=== PATIENT | female | born 1955 | race Caucasian/White ===

== ENCOUNTER 2020-03-16 18:07 | Emergency (ER) | payer BC, SELFPAY ==
[2020-03-16 18:42] VITALS: BP 97/65; PULSE 65; RESP 16; TEMP 36.2; O2SAT 97; BMI 36.8
[2020-03-16 20:00] VITALS: BP 97/65; PULSE 65; RESP 16; TEMP 36.2; O2SAT 97
[2020-03-16 20:34] LABS: MANUAL DIFF FLAG NO
[2020-03-16 20:39] LABS: Basophils Absolute Auto 0.1 X10*3/uL (0.0-0.2); Basophils Percent Auto 0.8 % (0-2); Eosinophils Absolute Auto 0.3 X10*3/uL (0.0-0.4); Eosinophils Percent Auto 2.8 % (0-4); Hematocrit 46.2 % (37-47); Hemoglobin 15.1 g/dl (12.0-16.0); Imm Gran Abs Auto 0.04 X10*3/uL (0.00-0.03); Imm Gran Pct Auto 0.4 % (0.0-0.4); Lymphocytes Absolute Auto 2.1 X10*3/uL (1.2-4.9); Lymphocytes Percent Auto 20.3 % (20-40); Mean Corpuscular HGB Conc 32.7 g/dl (31.0-35.0); Mean Corpuscular Volume 82.6 fL (80-98); Mean Platelet Volume 8.8 fL (9.4-12.3); Monocytes Absolute Auto 0.9 X10*3/uL (0.1-1.2); Monocytes Percent Auto 8.6 % (2-11); Neutrophils Absolute Auto 6.8 X10*3/uL (2.0-8.3); Neutrophils Percent Auto 67.1 % (45-73); Platelet Count 246 X10*3/uL (160-400); Red Blood Count 5.59 X10*6/uL (4.20-5.50); Red Cell Distribution Width 13.9 % (11.0-16.0); White Blood Count 10.1 X10*3/uL (4.8-10.8)
[2020-03-16 21:04] LABS: Alanine Aminotransferase 38 U/L (0-31); Albumin Level 4.2 g/dL (3.5-5.0); Alkaline Phosphatase 80 U/L (39-117); Anion Gap 15 (12-20); Aspartate Amino Transferase 26 U/L (5-31); Bilirubin Total 0.9 mg/dL (0.0-1.0); Blood Urea Nitrogen 49 mg/dL (9-16); Calcium 9.5 mg/dL (8.4-10.2); Carbon Dioxide 24 mmol/L (22-29); Chloride 107 mmol/L (96-108); Creatinine Clr Calc Pharmacy 32.4; Estimated Glomerular Filt Rate 24; Glucose Random 102 mg/dL (60-115); Potassium 4.1 mmol/l (3.3-5.1); Sodium 142 mmol/L (135-145); Total Protein 6.8 g/dL (6.5-8.0)
--- NOTE | 2020-03-16 21:23 | ED_ITS ---
HPI - Nausea/Vomiting/Diarrhea General Chief complaint: General Medical Stated complaint: dehydration Time Seen by Provider: 03/16/20 21:22 Source: patient History of Present Illness HPI Narrative: This is a 64-year-old female with history of hypertension who presents with 2 days of nonbloody diarrhea that she states started after consuming a turkey sandwich. She has had some mild nausea however states that she has had no further diarrhea today and that she has been able to tolerate liquids. Otherwise, patient denies any fevers, chills, urinary pain /burning / frequency, shortness of breath, chest pain / palpitations. Of note, patient states that she lost her dog on Sunday which she feels has factor in to her diarrhea. Related Data Home Medications Medication Instructions Recorded Confirmed amlodipine-olmesartan 1 tab PO DAILY 03/16/20 03/16/20 hydrochlorothiazide 1 tab PO DAILY 03/16/20 03/16/20 lorazepam 1 tab PO DAILY PRN 03/16/20 03/16/20 metoprolol tartrate 1 tab PO BID 03/16/20 03/16/20 ondansetron 1 tab PO BID PRN 03/16/20 03/16/20 tramadol 1 tab PO Q12H PRN 03/16/20 03/16/20 triamcinolone acetonide appl TOPICAL DAILY 03/16/20 Allergies Allergy/AdvReac Type Severity Reaction Status Date / Time Iodinated Contrast Media Allergy Severe SEIZURE Verified 03/16/20 23:31 [IV CONTRAST] vancomycin [VANCOMYCIN] Allergy Severe ITCHING, Verified 03/16/20 23:31 SOB doxycycline [DOXYCYCLINE] Allergy Intermediate DIFFICULTY Verified 03/16/20 23:31 SWALLOWING Penicillins [PENICILLINS] Allergy Intermediate RASH Verified 03/16/20 23:31 cephalexin [From KEFLEX] Allergy Unknown RASH Verified 03/16/20 23:31 penicillin V Allergy Unknown Rash Verified 03/16/20 23:31 Sulfa (Sulfonamide Allergy Unknown UNKNOWN Verified 03/16/20 23:31 Antibiotics) [SULFA (SULFONAMIDE ANTIBIOTICS)] ACEI Allergy Unknown cough Uncoded 03/16/20 23:31 Iodinated contrast - PO and Allergy Unknown dystonia, Uncoded 03/16/20 23:31 IV confusion Penicillin Allergy Unknown Rash Uncoded 03/16/20 23:31 Sulfonamides Allergy Unknown Rash Uncoded 03/16/20 23:31 Review of Systems Review of Systems: Pertinent positives and negatives as stated in HPI 10 point review of systems otherwise negative. [facility]LY [facility] Past Medical History Source: nursing notes reviewed Medical History HTN (hypertension) Meningioma Splenic artery aneurysm Social History Social History Alcohol intake: unknown Smoking Status: Unknown if ever smoked Use of substances other than those prescribed or required for medical reasons: Unknown Advance Directives: No Advance Directives Information Provided: Yes Physical Exam Vital Signs: Vital Signs: Last Vital Signs Temp 98.0 F 03/16/20 23:53 Pulse 68 03/17/20 00:46 Resp 18 03/17/20 00:46 BP 106/53 L 03/17/20 00:46 Pulse Ox 98 03/17/20 00:46 Body Mass Index 36.8 VITAL SIGNS: Reviewed. GENERAL: Well developed, well nourished, in no acute distress. HEAD: Normocephalic/atraumatic, EYES: PERRLA, EOMI intact without pain, no nystagmus/pallor/icterus noted EARS: Ext canals without abnormality, TMs non-bulging and non-erythematous NOSE: Nares patent bilateral OROPHARYNX: no oral lesions noted, posterior pharynx clear and non-erythematous without noted tonsillar enlargement/erythema/exudates NECK: Supple, no adenopathy LUNGS: Normal breath sounds. No adventitious sounds or accessory muscle use. SpO2<97> CARDIOVASCULAR: Regular rate and rhythm without noted murmurs, no JVD or lower extremity edema. ABDOMEN: Soft, non-tender, non-distended with bowel sounds. No rigidity. No guarding. No palpable masses or hernias noted MUSCULOSKELETAL: No tenderness, deformities, or effusions noted on gross inspection. EXTREMITIES: No cyanosis, clubbing or edema. SKIN: Inspection of the skin reveals no rashes, ulcerations, jaundice, pallor, or petechiae. NEUROLOGIC: Alert and oriented x 4. Strength and sensation to light touch were grossly intact x 4. Course Course Course Narrative: This is a 64-year-old female with history and clinical presentation most consistent with viral enteritis that appears to be resolving and patient likely has mild dehydration with noted new CONRAD. on review of all investigations there is no evidence of systemic infection, no anemia, platelets are within normal limits, but there is a noted CONRAD that is likely secondary to patient's reported NSAID use as well as compound by her recent dehydration. Patient will receive IV fluids as well as p.o. and will repeat BMP prior to discharge. Repeat basic metabolic panel shows an improvement of the creatinine level and although the BUN remains elevated patient can continue to hydrate orally and clinically is much improved and will follow-up with her primary care provider in the morning. MDM - Nausea/Vomiting/Diarrhea Lab Data Result diagrams: 03/16/20 20:28 03/17/20 00:42 Labs: Lab Results 03/16/20 03/16/20 03/16/20 Range/Units 20:28 20:28 20:28 WBC 10.1 (4.8-10.8) X10*3/uL RBC 5.59 H (4.20-5.50) X10*6/uL Hgb 15.1 (12.0-16.0) g/dl Hct 46.2 (37-47) % MCV 82.6 (80-98) fL MCH 27.0 (27.0-33.0) pg MCHC 32.7 (31.0-35.0) g/dl RDW 13.9 (11.0-16.0) % Plt Count 246 (160-400) X10*3/uL MPV 8.8 L (9.4-12.3) fL Immature Gran % (Auto) 0.4 (0.0-0.4) % Neut % (Auto) 67.1 (45-73) % Lymph % (Auto) 20.3 (20-40) % [place] % (Auto) 8.6 (2-11) % Eos % (Auto) 2.8 (0-4) % Baso % (Auto) 0.8 (0-2) % Lymph # (Auto) 2.1 (1.2-4.9) X10*3/uL [place] # (Auto) 0.9 (0.1-1.2) X10*3/uL Eos # (Auto) 0.3 (0.0-0.4) X10*3/uL Baso # (Auto) 0.1 (0.0-0.2) X10*3/uL Abs Immat Gran (auto) 0.04 H (0.00-0.03) X10*3/uL Absolute Neuts (auto) 6.8 (2.0-8.3) X10*3/uL Absolute Nucleated RBC 0.000 (0.0-0.012) X10*3/uL Nucleated RBC % (auto) 0.0 (0.0-0.2) /100WBC Hold Blue Top SEE NOTE Sodium 142 (135-145) mmol/L Potassium 4.1 (3.3-5.1) mmol/l Chloride 107 (96-108) mmol/L Carbon Dioxide 24 (22-29) mmol/L Anion Gap 15 (12-20) BUN 49 H (9-16) mg/dL Creatinine 2.10 H (0.5-1.4) mg/dL Estim Creat Clear Calc 32.4 Estimated GFR 24 Random Glucose 102 (60-115) mg/dL Calcium 9.5 (8.4-10.2) mg/dL Total Bilirubin 0.9 (0.0-1.0) mg/dL AST 26 (5-31) U/L ALT 38 H (0-31) U/L Alkaline Phosphatase 80 (39-117) U/L Total Protein 6.8 (6.5-8.0) g/dL Albumin 4.2 (3.5-5.0) g/dL 03/17/20 Range/Units 00:42 WBC (4.8-10.8) X10*3/uL RBC (4.20-5.50) X10*6/uL Hgb (12.0-16.0) g/dl Hct (37-47) % MCV (80-98) fL MCH (27.0-33.0) pg MCHC (31.0-35.0) g/dl RDW (11.0-16.0) % Plt Count (160-400) X10*3/uL MPV (9.4-12.3) fL Immature Gran % (Auto) (0.0-0.4) % Neut % (Auto) (45-73) % Lymph % (Auto) (20-40) % [place] % (Auto) (2-11) % Eos % (Auto) (0-4) % Baso % (Auto) (0-2) % Lymph # (Auto) (1.2-4.9) X10*3/uL [place] # (Auto) (0.1-1.2) X10*3/uL Eos # (Auto) (0.0-0.4) X10*3/uL Baso # (Auto) (0.0-0.2) X10*3/uL Abs Immat Gran (auto) (0.00-0.03) X10*3/uL Absolute Neuts (auto) (2.0-8.3) X10*3/uL Absolute Nucleated RBC (0.0-0.012) X10*3/uL Nucleated RBC % (auto) (0.0-0.2) /100WBC Hold Blue Top Sodium 143 (135-145) mmol/L Potassium 4.1 (3.3-5.1) mmol/l Chloride 112 H (96-108) mmol/L Carbon Dioxide 18 L (22-29) mmol/L Anion Gap 17 (12-20) BUN 49 H (9-16) mg/dL Creatinine 1.73 H (0.5-1.4) mg/dL Estim Creat Clear Calc 39.4 Estimated GFR 30 Random Glucose 98 (60-115) mg/dL Calcium 8.5 D (8.4-10.2) mg/dL Total Bilirubin (0.0-1.0) mg/dL AST (5-31) U/L ALT (0-31) U/L Alkaline Phosphatase (39-117) U/L Total Protein (6.5-8.0) g/dL Albumin (3.5-5.0) g/dL Discharge Plan Discharge Clinical Impression: Diarrhea, Dehydration Patient Disposition: Home, Self-Care Instructions: Dehydration (ED), Acute Diarrhea (ED) Prescriptions: No Action tramadol 50 mg tablet 1 tab PO Q12H PRN (Reason: Insomnia) RF: 0 triamcinolone acetonide 0.1 % cream topical DAILY RF: 0 lorazepam 0.5 mg tablet 1 tab PO DAILY PRN (Reason: Anxiety) RF: 0 metoprolol tartrate 50 mg tablet 1 tab PO BID RF: 0 hydrochlorothiazide 25 mg tablet 1 tab PO DAILY RF: 0 ondansetron 4 mg tablet,disintegrating 1 tab PO BID PRN (Reason: nausea/vomiting) RF: 0 amlodipine-olmesartan 10-40 mg tablet 1 tab PO DAILY RF: 0 Referrals: Benji Salcedo MD [Primary Care Provider] - 2 days ( Re-evaluation of CONRAD and diarrhea)
[2020-03-16 22:00] VITALS: BP 99/58; PULSE 61; RESP 61; O2SAT 99
[2020-03-16] MEDS: 0.9 % Sodium Chloride 1,000 ML 1000 ML IV (22:29)
[2020-03-16 23:53] VITALS: BP 94/62; PULSE 62; RESP 18; TEMP 36.7; O2SAT 97
[2020-03-17 00:46] VITALS: BP 106/53; PULSE 68; RESP 18; O2SAT 98
--- NOTE | 2020-03-17 00:53 | PC.NURSE ---
SALINE FLUID INFUSED AND AWAITING RESULTS OF BMP RESULTS. PLAN FOR D/C IF RENAL LABS IMPROVE PER
[2020-03-17 01:20] LABS: Anion Gap 17 (12-20); Blood Urea Nitrogen 49 mg/dL (9-16); Calcium 8.5 mg/dL (8.4-10.2); Carbon Dioxide 18 mmol/L (22-29); Chloride 112 mmol/L (96-108); Creatinine Clr Calc Pharmacy 39.4; Estimated Glomerular Filt Rate 30; Glucose Random 98 mg/dL (60-115); Potassium 4.1 mmol/l (3.3-5.1); Sodium 143 mmol/L (135-145)
== END 2020-03-17 01:58 | disposition home or self-care (01) ==
PROVIDERS: Emergency Provider Student in an Organized Health Care Education/Training Program; PCP Internal Medicine
DX: R19.7 Diarrhea, unspecified (principal); E86.0 Dehydration; I10 Essential (primary) hypertension; E78.5 Hyperlipidemia, unspecified; K76.0 Fatty (change of) liver, not elsewhere classified
CPT/HCPCS: 36415; 80048; 80053; 85025; 96360; 99284

== ENCOUNTER → 2020-03-18 14:09 | Outpatient (BNVA) | payer BC, SELFPAY | PROVIDERS: PCP Internal Medicine; Referring Provider Internal Medicine; Visit Provider Internal Medicine Gastroenterology | DX: Z76.89 Persons encountering health services in other specified circumstances (principal) ==

== ENCOUNTER → 2020-06-10 16:01 | Outpatient (BNVA) | payer BC, SELFPAY | PROVIDERS: PCP Internal Medicine; Visit Provider Internal Medicine Gastroenterology ==

== ENCOUNTER 2020-06-28 10:06 | Outpatient (REF) | payer BC, SELFPAY ==
--- NOTE | ~2020-06-28 | XR_ITS ---
EXAMINATION: XR BILATERAL KNEES AP STANDING XR KNEE, RIGHT 2 VIEWS CLINICAL INFORMATION: Right knee pain. COMPARISON: None TECHNIQUE: AP bilateral knees standing one view. Right knee 2 views. FINDINGS: AP BILATERAL KNEES STANDING: There is moderate reduction in medial and mild reduction in the lateral compartment joint space of both knees with mild periarticular spurring in the lateral compartments. No bony erosive changes or loose body seen. There is a bipartite patella left knee. RIGHT KNEE: There is severe loss of right knee compartment joint space with moderate periarticular spurring. There is mild suprapatellar joint effusion. There are periarticular enthesophytes in the patellofemoral compartment. 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 No loose body seen. Degenerative changes in the medial and lateral compartment left knee.
--- NOTE | ~2020-06-28 | XR_ITS ---
EXAMINATION: XR BILATERAL KNEES AP STANDING XR KNEE, RIGHT 2 VIEWS CLINICAL INFORMATION: Right knee pain. COMPARISON: None TECHNIQUE: AP bilateral knees standing one view. Right knee 2 views. FINDINGS: AP BILATERAL KNEES STANDING: There is moderate reduction in medial and mild reduction in the lateral compartment joint space of both knees with mild periarticular spurring in the lateral compartments. No bony erosive changes or loose body seen. There is a bipartite patella left knee. RIGHT KNEE: There is severe loss of right knee compartment joint space with moderate periarticular spurring. There is mild suprapatellar joint effusion. There are periarticular enthesophytes in the patellofemoral compartment. 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 No loose body seen. Degenerative changes in the medial and lateral compartment left knee.
== END 2020-06-28 10:07 | disposition home or self-care (01) ==
LOC: HO.HOSX 10:06
PROVIDERS: Visit Provider Orthopaedic Surgery
DX: M25.561 Pain in right knee (principal); M17.11 Unilateral primary osteoarthritis, right knee; I10 Essential (primary) hypertension; I72.8 Aneurysm of other specified arteries; Z88.0 Allergy status to penicillin; Z88.2 Allergy status to sulfonamides; Z88.8 Allergy status to other drugs, medicaments and biological substances; Z91.041 Radiographic dye allergy status; Z90.710 Acquired absence of both cervix and uterus; Z90.49 Acquired absence of other specified parts of digestive tract
CPT/HCPCS: 20610; 73560; 73565; J1040

== ENCOUNTER 2020-07-06 08:52 | Outpatient (REF) | payer BC, SELFPAY ==
--- NOTE | ~2020-07-06 | US_ITS ---
EXAMINATION: US RETROPERITONEAL LIMITED (RENAL ONLY) CLINICAL INFORMATION: Chronic kidney disease and hypertension. Evaluate for renal artery stenosis.. COMPARISON: Previous abdominal ultrasound November [address] of the abdomen and pelvis August 2019 TECHNIQUE: Grayscale color and Doppler evaluation of kidneys including waveform spectral analysis of the renal arteries. FINDINGS: RIGHT KIDNEY: 10.3 x 4.3 x 4.6 cm (SAG x AP x TRV). The kidney is normal in size, contour, and echogenicity. Renal cortical thickness is normal. There is a small 3 x 2 x 3 mm echogenic focus in the lateral cortex of the midpole questionable for small stones versus cortical calcification. No renal mass. No hydronephrosis. LEFT KIDNEY: 10.7 x 5.2 x 5 cm (SAG x AP x TRV). The kidney is normal in size, contour, and echogenicity. There is left renal cortical thinning or scarring. There is a 4 x 5 x 10 mm simple cyst in the upper pole. No calculi or focal parenchymal lesions. No hydronephrosis. Renal Doppler: Aortic peak systolic velocity is elevated at 140 cm/s. This too high to be used to calculate renal artery to aorta ratio. The right renal artery peak systolic velocity measures 119 cm/s proximally and 169 cm/s distally. The right mid renal artery is is not visualized. Interlobar renal artery resistive indices in the right kidney are slightly elevated measuring 0.8. The right renal vein is patent. The left renal artery peak systolic velocity measures 99 cm percent proximally and 142 cm/s distally. The left mid renal artery is not well visualized. Interlobar resistive indices in the left kidney are slightly elevated measuring 0.7- 0.8. The left renal vein is patent. US/US renal doppler IMPRESSION: Question small right renal stone versus cortical calcification. Left renal cortical thinning. Limited renal Doppler exam. The bilateral mid renal arteries are not well visualized. Aortic peak systolic velocity is elevated and renal artery to aorta ratios cannot be calculated. Bilateral interlobar renal artery resistive indices in the kidneys are elevated.
[2020-07-06 11:13] LABS: MANUAL DIFF FLAG NO
[2020-07-06 11:18] LABS: Glucose Urine UA NEG (NEG); Leukocyte Esterase Urine 1+ (NEG); Nitrite Urine NEG (NEG); PH 5.5 (5.0-8.0); Specific Gravity - Urine 1.025 (1.005-1.025); UACC Culture Trigger YES; Urine Blood NEG (NEG); Urine Ketones NEG (NEG); Urine Protein NEG (NEG-TRACE)
[2020-07-06 11:20] LABS: Basophils Absolute Auto 0.1 X10*3/uL (0.0-0.2); Basophils Percent Auto 0.8 % (0-2); Eosinophils Absolute Auto 0.3 X10*3/uL (0.0-0.4); Eosinophils Percent Auto 3.9 % (0-4); Hematocrit 44.9 % (37-47); Hemoglobin 14.3 g/dl (12.0-16.0); Imm Gran Abs Auto 0.05 X10*3/uL (0.00-0.03); Imm Gran Pct Auto 0.6 % (0.0-0.4); Lymphocytes Absolute Auto 1.6 X10*3/uL (1.2-4.9); Lymphocytes Percent Auto 19.2 % (20-40); Mean Corpuscular HGB Conc 31.8 g/dl (31.0-35.0); Mean Corpuscular Volume 84.7 fL (80-98); Monocytes Absolute Auto 0.6 X10*3/uL (0.1-1.2); Monocytes Percent Auto 7.1 % (2-11); Neutrophils Absolute Auto 5.7 X10*3/uL (2.0-8.3); Neutrophils Percent Auto 68.4 % (45-73); Platelet Count 236 X10*3/uL (160-400); Red Cell Distribution Width 13.6 % (11.0-16.0); White Blood Count 8.3 X10*3/uL (4.8-10.8)
[2020-07-06 11:22] LABS: Appearance Urine CLEAR; Color Urine YELLOW
[2020-07-06 12:39] LABS: Bacteria Urine TRACE /LPF; Mucus Urine TRACE /LPF; RBC Urine 0-2 /HPF (0); Renal Epithelial Cells Urine 1+ /LPF; Squamous Epithelial Cell Urine TRACE /LPF
[2020-07-06 12:44] LABS: Albumin Level 3.8 g/dL (3.5-5.0); Anion Gap 15 (12-20); Blood Urea Nitrogen 37 mg/dL (9-16); Calcium 9.1 mg/dL (8.4-10.2); Carbon Dioxide 22 mmol/L (22-29); Chloride 111 mmol/L (96-108); Estimated Glomerular Filt Rate 42; Phosphorus 2.9 mg/dL (2.7-4.5); Potassium 4.2 mmol/L (3.3-5.1); Sodium 144 mmol/L (135-145)
[2020-07-06 12:46] LABS: Vitamin D 25-OH Total 15.5 ng/mL (>30)
[2020-07-06 13:19] LABS: Renal w Reflex Lab Use Only Order verified
[2020-07-07 08:32] LABS: Creatinine Urine 97.29 mg/dL; Microalbumin Urine < 5.0 mg/L; Total Protein Urine Random < 7 mg/dL (<12)
[2020-07-07 08:32] LABS: HBsAGNum1 0.16 S/CO (0.00-0.99); Hepatitis B Surface Antigen Negative (Negative)
[2020-07-07 08:58] LABS: HBS Num1 0.01 mIU/mL (0-7.99); HBc Num1 0.06 S/CO (0.00-0.79); Hepatitis B Core Antibody Nonreactive (Nonreactive); ~Hepatitis B Surface Antibody NONREACTIVE (Nonreactive); ~Hepatitis C Antibody Nonreactive (Nonreactive)
[2020-07-07 18:41] LABS: Calcium (PTHI) 9.5 mg/dL (8.6-10.4); PTHI 98 pg/mL (14-64)
[2020-07-12 14:12] LABS: IgA 166 mg/dL (70-320); IgG 845 mg/dL (600-1540); IgM 64 mg/dL (50-300)
== END 2020-07-06 08:53 | disposition home or self-care (01) ==
LOC: HO.HMGCX 08:52
PROVIDERS: PCP Internal Medicine; Visit Provider Internal Medicine Nephrology
DX: R10.9 Unspecified abdominal pain (principal)
CPT/HCPCS: 36415; 76775; 80051; 81001; 81003; 82040; 82043; 82306; 82310; 82565; 82784; 83970; 84100; 84156; 84520; 85025; 86334; 86704; 86706; 86803; 87086; 87340; 93975

== ENCOUNTER → 2020-11-08 10:09 | Outpatient (REF) | payer BC, SELFPAY ==
--- NOTE | 2020-11-08 10:00 | CA_ITS ---
Acquisition Time: 2020-11-08 10:16:56 Total Exercise Time: 00:02:15 Test Indications: CP Medications: SEE CHART Protocol: SERAFIN Max HR: 122 BPM 79% of Pred: 154 BPM Max BP: 120/060 mmHG Max Work Load: 4.6 METS Exercise stress test with exercise 2 min 15 sec of Serafin protocol, with moderate shortness of breath and request to stop exercise, with isolated PAC, with normotensive response to exercise, with nondiagnostic EKG for ischemia. In recovery breathing quickly improved to normal. Test reviewed with Dr Scott. Referred By: Benji Salcedo Overread By: CANDICE STONE
--- NOTE | 2020-11-08 11:20 | ECG_ITS ---
Hook-up date: 2020-11-08 11:08:00 Duration: 47:59:00 Test Indications: chest pain Medications: 449369 QRS complexes 3 Ventricular ectopics which represent <1 % of total QRS comp. 50 Supraventricular ectopics which represent <1 % of total QRS comp. * Paced QRS complexs which represent % of total QRS comp. VENTRICULAR ECTOPY 3 Isolated 0 Bigeminal Cycles 0 Couplets 0 Runs 0 Beats in Runs * Beats LONGEST at * BPM at :: -- * Beats FASTEST at * BPM at :: -- SUPRAVENTRICULAR ECTOPY 43 Isolated 2 Couplets 1 Runs 3 Beats in Runs 3 Beats LONGEST at 132 BPM at 21:59:59 2020-11-08 3 Beats FASTEST at 132 BPM at 21:59:59 2020-11-08 HEART RATES 50 MIN at 04:22:20 2020-11-09 74 AVG 113 MAX at 06:49:24 2020-11-09 LONGEST RR 1.2800 secs at 04:22:17 2020-11-09 S-T LEVELS Channel 1 - 128 mm at 11:08:00 2020-11-08 - 128 mm at 11:08:00 2020-11-08 Channel 2 - 128 mm at 11:08:00 2020-11-08 - 128 mm at 11:08:00 2020-11-08 Channel 3 - 128 mm at 03:02:71 -- - 128 mm at 03:02:71 Underlying rhythm is sinus; Average Vent. rate 74/min; range 50-113/min; Rare Premature atrial complexes , Premature ventricular complexes ; No sustained arrhythmias; 'Rapid heart beat' recorded in patient diary correlates with sinus rhythm. Referred By: Benji Salcedo Overread By: FABY HENDRICKSON
== END ==
LOC: HO.CARD 10:09
PROVIDERS: Visit Provider Internal Medicine
DX: R07.9 Chest pain, unspecified (principal); R00.2 Palpitations
CPT/HCPCS: 93017; 93225; 93226

== ENCOUNTER 2021-01-19 17:51 | Outpatient (REF) | payer BC, SELFPAY ==
[2021-01-19 18:30] LABS: Anion Gap 12 (12-20); Blood Urea Nitrogen 35 mg/dL (9-16); Carbon Dioxide 23 mmol/L (22-29); Chloride 112 mmol/L (96-108); Estimated Glomerular Filt Rate 33; Potassium 4.4 mmol/L (3.3-5.1); Sodium 143 mmol/L (135-145); Uric Acid 10.1 mg/dL (2.4-5.7)
[2021-01-19 18:48] LABS: Vitamin D 25-OH Total 20.2 ng/mL (>30)
[2021-01-21 12:50] LABS: Calcium (PTHI) 9.9 mg/dL (8.6-10.4); PTHI 171 pg/mL (14-64)
== END 2021-01-19 17:52 | disposition home or self-care (01) ==
LOC: HO.LAB 17:51
PROVIDERS: Absent Provider Internal Medicine; PCP Internal Medicine; Visit Provider Internal Medicine Nephrology
DX: I12.9 Hypertensive chronic kidney disease with stage 1 through stage 4 chronic kidney disease, or unspecified chronic kidney disease (principal); N18.31 Chronic kidney disease, stage 3a
CPT/HCPCS: 36415; 80051; 82306; 82310; 82565; 83970; 84520; 84550

== ENCOUNTER 2021-10-07 12:10 | Day surgery (SDC) | payer BC, SELFPAY ==
--- NOTE | 2021-10-06 13:54 | HO.ANESPROP2 ---
Documented by User: Brenda Munoz NP 10/06/21 13:54 HPI - Anesthesia Eval Consult details Narrative: 66yo F for Colonoscopy PMFSH Active Problems Active Problems: All Active Problems (Updated 09/30/21 @ 13:28 by Nanci Almanza, TD) Chronic diarrhea (Acute) Lower abdominal pain (Acute) Rectal bleeding (Acute) NAFL (nonalcoholic fatty liver) (Acute) Hyperlipidemia (Acute) Obstructive sleep apnea (Acute) History of colon polyps (Acute) Right knee pain (Acute) Infrapatellar bursitis of right knee (Acute) Past Medical History Medical History Chronic headaches Gout HTN (hypertension) Meningioma On beta kamar at home GINA (obstructive sleep apnea) Splenic artery aneurysm Family History Family History Father Family hx of colon cancer Mother Hx of breast cancer Paternal Grandmother Colon cancer Surgical History Surgical History History of History of colonoscopy (~08/2018) History of hysterectomy Hx laparoscopic cholecystectomy (~2013) Social History Social History Household Members: None Alcohol intake: current Alcohol intake frequency: does not drink Patient Tobacco Use Status: Never used Tobacco Use of substances other than those prescribed or required for medical reasons: No Have you been hit, kicked, punched, or otherwise hurt by someone within the past year? If so, by whom?: No Are you DNR?: No Advance Directives: No Advance Directives Information Provided: Yes Recently lost weight without trying: No Patient : No Meds Allergies Allergy/AdvReac Type Severity Reaction Status Date / Time Iodinated Contrast Media Allergy Severe SEIZURE Verified 09/30/21 13:23 [IV CONTRAST] vancomycin [VANCOMYCIN] Allergy Severe ITCHING, Verified 09/30/21 13:23 SOB doxycycline [DOXYCYCLINE] Allergy Intermediate DIFFICULTY Verified 09/30/21 13:23 SWALLOWING Penicillins [PENICILLINS] Allergy Intermediate RASH Verified 09/30/21 13:23 cephalexin [From KEFLEX] Allergy Unknown RASH Verified 09/30/21 13:23 Sulfa (Sulfonamide Allergy Unknown UNKNOWN Verified 09/30/21 13:23 Antibiotics) [SULFA (SULFONAMIDE ANTIBIOTICS)] Home Medications Medication Instructions Recorded Confirmed Last Taken Type amlodipine 10 mg-olmesartan 40 mg 1 tab PO DAILY 03/16/20 09/30/21 03/16/20 History tablet lorazepam 0.5 mg tablet 1 tab PO DAILY PRN Anxiety 03/16/20 09/30/21 03/16/20 History metoprolol tartrate 50 mg tablet 1 tab PO BID 03/16/20 09/30/21 03/16/20 History ondansetron 4 mg disintegrating 1 tab PO BID PRN nausea/vomiting 03/16/20 09/30/21 03/16/20 History tablet tramadol 50 mg tablet 1 tab PO Q12H PRN Insomnia 03/16/20 09/30/21 03/16/20 History triamcinolone acetonide 0.1 % appl topical DAILY 03/16/20 06/10/20 03/16/20 History topical cream hydrochlorothiazide 25 mg tablet 12.5 mg PO DAILY 06/10/20 09/30/21 Unknown History trazodone 50 mg tablet 25 mg PO BEDTIME PRN Sleep 06/10/20 09/30/21 Unknown History allopurinol 100 mg tablet 1 tab PO DAILY 09/30/21 09/30/21 Unknown History Exam Exam Date and Time: October 06, 2021 1354 Assessment and Plan Assessment Anesthesia Assessment: Chart Reviewed Documented by User: Claire Giraldo MD 10/07/21 13:32 [facility] Past Medical History Medical History Chronic headaches Gout HTN (hypertension) Meningioma On beta kamar at home GINA (obstructive sleep apnea) Splenic artery aneurysm Family History Family History Father Family hx of colon cancer Mother Hx of breast cancer Paternal Grandmother Colon cancer Family history of problems with anesthesia: No Surgical History Surgical History History of History of colonoscopy (~08/2018) History of hysterectomy Hx laparoscopic cholecystectomy (~2013) History of Problems with Anesthesia: No Social History Social History Household Members: None Alcohol intake: current Alcohol intake frequency: does not drink Patient Tobacco Use Status: Never used Tobacco Use of substances other than those prescribed or required for medical reasons: No Have you been hit, kicked, punched, or otherwise hurt by someone within the past year? If so, by whom?: No Are you DNR?: No Advance Directives: No Advance Directives Information Provided: Yes Recently lost weight without trying: No Patient : No Meds Allergies Allergy/AdvReac Type Severity Reaction Status Date / Time Iodinated Contrast Media Allergy Severe SEIZURE Verified 09/30/21 13:23 [IV CONTRAST] vancomycin [VANCOMYCIN] Allergy Severe ITCHING, Verified 09/30/21 13:23 SOB doxycycline [DOXYCYCLINE] Allergy Intermediate DIFFICULTY Verified 09/30/21 13:23 SWALLOWING Penicillins [PENICILLINS] Allergy Intermediate RASH Verified 09/30/21 13:23 cephalexin [From KEFLEX] Allergy Unknown RASH Verified 09/30/21 13:23 Sulfa (Sulfonamide Allergy Unknown UNKNOWN Verified 09/30/21 13:23 Antibiotics) [SULFA (SULFONAMIDE ANTIBIOTICS)] Home Medications Medication Instructions Recorded Confirmed Last Taken Type amlodipine 10 mg-olmesartan 40 mg 1 tab PO DAILY 03/16/20 09/30/21 03/16/20 History tablet lorazepam 0.5 mg tablet 1 tab PO DAILY PRN Anxiety 03/16/20 09/30/21 03/16/20 History metoprolol tartrate 50 mg tablet 1 tab PO BID 03/16/20 09/30/21 03/16/20 History ondansetron 4 mg disintegrating 1 tab PO BID PRN nausea/vomiting 03/16/20 09/30/21 03/16/20 History tablet tramadol 50 mg tablet 1 tab PO Q12H PRN Insomnia 03/16/20 09/30/21 03/16/20 History triamcinolone acetonide 0.1 % appl topical DAILY 03/16/20 06/10/20 03/16/20 History topical cream hydrochlorothiazide 25 mg tablet 12.5 mg PO DAILY 06/10/20 09/30/21 Unknown History trazodone 50 mg tablet 25 mg PO BEDTIME PRN Sleep 06/10/20 09/30/21 Unknown History allopurinol 100 mg tablet 1 tab PO DAILY 09/30/21 09/30/21 Unknown History Exam Airway Mallampati Class: II TM Dist: >3cm Neck ROM: Full Heart: rrr Lungs: cta Assessment and Plan Assessment Anesthesia Assessment: Anesthesia Plan Discussed and Chart Reviewed Final Anesthetic Review Family History of Problems with Anesthesia: No History of Problems with Anesthesia: No NPO: Yes ASA Class: III Final Preanesthetic Review: No Changes in Pt Med Stat, Meds/Allgs Chart Reviewed and Consent Obtained/Reviewed Patient Risk: Intermediate Procedure Risk: Intermediate Anesthetic Plan Anesthetic Plan: MAC: Disposition: Standard PACU
[2021-10-07 12:51] VITALS: BP 130/76; PULSE 84; RESP 18; TEMP 36.5; O2SAT 95; BMI 37.9
--- NOTE | 2021-10-07 13:49 | MHC.SHP ---
Pre-Procedural Eval Section A Date of Service: 10/07/21 The patient is an INPATIENT: No The History & Physical has been completed within 30 days and I have reviewed it.: No Section B Chief Complaint: Hx of Colon Polyps Details of Present Illness: Colon cancer screening, history of colon polyps, diarrhea Relevant Family History (Specify if Yes): Yes Relevant Social History: None Present Medications: see Short Stay Collaborative assessment Medical History: Significant History (Chronic headaches HTN (hypertension) Meningioma Splenic artery aneurysm) History of Previous Operations: Relevant previous surgery/procedure and date(s) (History of History of colonoscopy (~08/2018) History of hysterectomy Hx laparoscopic cholecystectomy (~2013)) Allergies: Allergies Allergy/AdvReac Type Severity Reaction Status Date / Time Iodinated Contrast Media Allergy Severe SEIZURE Verified 09/30/21 13:23 [IV CONTRAST] vancomycin [VANCOMYCIN] Allergy Severe ITCHING, Verified 09/30/21 13:23 SOB doxycycline [DOXYCYCLINE] Allergy Intermediate DIFFICULTY Verified 09/30/21 13:23 SWALLOWING Penicillins [PENICILLINS] Allergy Intermediate RASH Verified 09/30/21 13:23 cephalexin [From KEFLEX] Allergy Unknown RASH Verified 09/30/21 13:23 Sulfa (Sulfonamide Allergy Unknown UNKNOWN Verified 09/30/21 13:23 Antibiotics) [SULFA (SULFONAMIDE ANTIBIOTICS)] Review of Systems Sugical H&P ROS: Negative: Constitution, Cardiovascular and Respiratory and Yes, Specify: Gastrointestinal (diarrhea) Exam Surgical H&P Exam: Normal: Heart, Normal: Lungs, Normal: Extremities and Normal: Abdomen Plan Diagnosis/Plan: Unchanged I have reviewed the history and physical and performed a pertinent physical examination on my patient. No changes have occurred unless specified.
[2021-10-07] MEDS: Lactated Ringers 1,000 ML 100 ML IVCONT (14:07)
--- NOTE | 2021-10-07 14:38 | P.BOP_ITS ---
Brief Operative Note Date of Service: 10/07/21 Pre-op diagnosis: Colon cancer screen, history of colon polyps, diarrhea Started taking probiotics (Probitoics for colon health from [employer]) with improvement in diarrhea, abdominal pain and cramps. She has noted a ton of gas and stools appear to float on the toilet water. Post-op diagnosis: other (Colon polyps, diverticulosis, hemorrhoids) Procedure: COLONOSCOPY TILL CECUM WITH BIOPSIES, SNARE POLYPECTOMY AND SUBMUCOSAL INJECTION Consent: Indications for the procedure and potential complications of bleeding, perforation, reaction to medications and missed diagnosis were discussed with the patient and informed consent was obtained. Instrument: Olympus PCF H 190 L variable stiffness pediatric colonoscope Monitoring: Vital signs and clinical assessment, intermittent blood pressure monitoring, continuous EKG monitoring, Pulse oximetry and Carbon Dioxide monitoring were done throughout the procedure. Colon withdrawl time was 21 minutes. Procedure: The patient was placed in the left lateral decubitis position and pre-procedure medications were administered. After a digital rectal examination of the ano-rectum, the video colonoscope was inserted into the rectum and advanced through the colon to the cecum. The colonoscope was slowly withdrawn in a retrograde panoramic fashion and the colon mucosa was carefully examined including a retroflexed view of the rectum. Findings and interventions are described below. Procedure Difficulty: Without difficulty Findings: Terminal Ileum: Not evaluated Cecum: Normal. Multiple attempts to intubate the TI were unsuccessful Ascending Colon: A 10-12 mm flat polyp in the proximal AC raised with 5 cc of Orise and removed with a hot stiff snare Transverse Colon: A 12-15 hyperplastic appearing polyp - biopsied. Descending Colon: Moderate diverticulosis Sigmoid Colon: Two 7-8 mm sessile polyps removed with a hot and cold snare. Moderate diverticulosis Rectum: Normal Ano-rectum: Moderate internal hemorrhoids Colon preparation: Good after some irrigation Impression and Post Procedure Diagnosis: Colonoscopy Findings: Three polyps removed, a 4th hyperplastic appearing polyp was biopsied. Random biopsies were obtained from the right colon to check for microscopic colitis Moderate diverticulosis seen in the left colon Moderate hemorrhoids on retroflexed exam. Plan: Await pathology results Patient has an appointment on 10/13/21 in the GI Clinic with Reny Munson M.D. Repeat Colonoscopy interval based on path results - in 3-5 years if polyps are adenomatous and 5 years if polyps are hyperplastic (since large hyperplastic polyps can be pre-malignant). Above findings were reviewed with the patient and colon polyps and diverticulosis handouts were given in the discharge area Surgeon: Reny Munson MD Anesthesia: MAC (Dr Mcclendon) Was an Metal Drill Press Operator used for this Procedure?: Yes Metal Drill Press Operator: Aleshia Funk Estimated blood loss (mL): 0 Pathology: other (A. ascending colon polyp with ORISE B. right colon bxs, R/O microscopic colitis C. transverse colon polyp D. sigmoid polyps (2)) Condition: stable Disposition: PACU
[2021-10-07 15:27] VITALS: BP 98/53; PULSE 74; RESP 16; TEMP 36.4; O2SAT 95
[2021-10-07 15:42] VITALS: BP 114/80; PULSE 66; RESP 18; TEMP 36.4; O2SAT 97
--- NOTE | 2021-10-10 17:52 | P.OP_ITS ---
Operative Note Operative Note Date of Service: 10/10/21 Narrative: Pre-op diagnosis: Colon cancer screen, history of colon polyps, diarrhea Started taking probiotics (Probitoics for colon health from [employer]) with improvement in diarrhea, abdominal pain and cramps. She has noted a ton of gas and stools appear to float on the toilet water. Post-op diagnosis:?other (Colon polyps, diverticulosis, hemorrhoids) Procedure: COLONOSCOPY TILL CECUM WITH BIOPSIES, SNARE POLYPECTOMY AND SUBMUCOSAL INJECTION Consent: Indications for the procedure and potential complications of bleeding, perforation, reaction to medications and missed diagnosis were discussed with the patient and informed consent was obtained. Instrument: Olympus PCF H 190 L variable stiffness pediatric colonoscope Monitoring: Vital signs and clinical assessment, intermittent blood pressure monitoring, continuous EKG monitoring, Pulse oximetry and Carbon Dioxide monitoring were done throughout the procedure. Colon withdrawl time was 21 minutes. Procedure: The patient was placed in the left lateral decubitis position and pre-procedure medications were administered. After a digital rectal examination of the ano-rectum, the video colonoscope was inserted into the rectum and advanced through the colon to the cecum. The colonoscope was slowly withdrawn in a retrograde panoramic fashion and the colon mucosa was carefully examined including a retroflexed view of the rectum. Findings and interventions are described below. Procedure Difficulty: Without difficulty Findings: Terminal Ileum: Not evaluated Cecum:? Normal.? Multiple attempts to intubate the TI were unsuccessful Ascending Colon:? A 10-12 mm flat polyp in the proximal AC raised with 5 cc of Orise and removed with a hot stiff snare Transverse Colon:? A 12-15 hyperplastic appearing polyp - biopsied. Descending Colon:? Moderate diverticulosis Sigmoid Colon:? Two 7-8 mm sessile polyps removed with a hot and cold snare. Moderate diverticulosis Rectum:? Normal Ano-rectum:? Moderate internal hemorrhoids Colon preparation:? Good after some irrigation Impression and Post Procedure Diagnosis: Colonoscopy Findings: Three polyps removed, a fourth hyperplastic appearing polyp was biopsied. Random biopsies were obtained from the right colon to check for microscopic colitis Moderate diverticulosis seen in the left colon Moderate hemorrhoids on retroflexed exam. Plan: Await pathology results Patient has an appointment on 10/13/21 in the GI Clinic with Reny Munson M.D. Repeat Colonoscopy interval based on path results - in 3-5 years if polyps are adenomatous and 5 years if polyps are hyperplastic (since large hyperplastic polyps can be pre-malignant). Above findings were reviewed with the patient and colon polyps and diverticulosis handouts were given in the discharge area Surgeon: Reny Munson MD Anesthesia:?MAC (Dr Mcclendon) Was an Unload Associate used for this Procedure?:?Yes Unload Associate:?Aleshia Funk Estimated blood loss (mL):?0 Pathology:?other (A. ascending colon polyp with ORISE? B. right colon bxs, R/O microscopic colitis? C. transverse colon polyp? D. sigmoid polyps (2)) Condition:?stable Disposition:?PACU
== END 2021-10-07 16:06 | disposition home or self-care (01) ==
PROVIDERS: PCP Internal Medicine; Visit Provider Internal Medicine Gastroenterology
PROC: 0DJD8ZZ Inspection of Lower Intestinal Tract, Via Natural or Artificial Opening Endoscopic (ICD-10-PCS; CPT 45378; principal; 2021-10-07 13:50)
DX: Z12.11 Encounter for screening for malignant neoplasm of colon (principal); Z86.010 Personal history of colon polyps; D12.5 Benign neoplasm of sigmoid colon; K51.40 Inflammatory polyps of colon without complications; K57.30 Diverticulosis of large intestine without perforation or abscess without bleeding; K64.8 Other hemorrhoids; K76.0 Fatty (change of) liver, not elsewhere classified; I10 Essential (primary) hypertension; I72.8 Aneurysm of other specified arteries; D32.9 Benign neoplasm of meninges, unspecified; R51.9 Headache, unspecified; E78.2 Mixed hyperlipidemia; G47.33 Obstructive sleep apnea (adult) (pediatric); Z88.0 Allergy status to penicillin; Z88.1 Allergy status to other antibiotic agents; Z88.2 Allergy status to sulfonamides; Z91.041 Radiographic dye allergy status; Z79.899 Other long term (current) drug therapy
CPT/HCPCS: 45385; 45380; 45381; 88305; J2250

== ENCOUNTER → 2022-06-21 13:30 | Outpatient (BNVA) | payer BC, SELFPAY | PROVIDERS: PCP Internal Medicine; Visit Provider Anesthesiology | DX: Z13.89 Encounter for screening for other disorder (principal) ==

== ENCOUNTER 2022-10-14 14:04 | Emergency (ER) | payer BC, SELFPAY ==
--- NOTE | ~2022-10-14 | XR_ITS ---
EXAMINATION: XR CHEST CLINICAL INFORMATION: Chest pain COMPARISON: None available. TECHNIQUE: 2 views of the chest were obtained. FINDINGS: No significant abnormality is noted involving the heart, lungs, mediastinum, bony thorax or soft tissues. IMPRESSION:
[2022-10-14 14:10] VITALS: BP 139/70; PULSE 70; O2SAT 99
[2022-10-14 14:13] VITALS: BP 140/74; PULSE 71; RESP 17; TEMP 36.6; O2SAT 97; BMI 34.8
--- NOTE | 2022-10-14 14:13 | ED.GENADULT ---
HPI - General Adult General Chief complaint: General Medical Stated complaint: low blood sugar Time Seen by Provider: 10/14/22 16:09 Source: patient Mode of arrival: ambulatory Limitations: no limitations History of Present Illness HPI narrative: 67-year-old female DM type 2 on Trulicity once a week, patient has continuous blood sugar monitoring with new patch attached to the left arm, patient has been getting blood sugar reading, found to have blood sugar of 140 by EMS, in the emergency department patient had blood sugar of 101 and the machine was reading 70s. Patient otherwise been having dry coughing, no fever, no chills, patient stated that she recently started on Trulicity which causing her to lose her appetite and eat less. No dysuria, no frequency urination, no abdominal pain. Getting nonspecific vague chest tightness for the past week on and off, no associated symptoms. Related Data Home Medications Medication Instructions Recorded Confirmed metoprolol tartrate 50 mg tablet 1 tab PO BID 03/16/20 06/21/22 ondansetron 4 mg disintegrating 1 tab PO BID PRN nausea/vomiting 03/16/20 06/21/22 tablet triamcinolone acetonide 0.1 % appl topical DAILY 03/16/20 06/21/22 topical cream allopurinol 100 mg tablet 1 tab PO DAILY 09/30/21 06/21/22 amlodipine 5 mg-atorvastatin 20 mg 1 tab PO DAILY 06/21/22 06/21/22 tablet dulaglutide 0.75 mg/0.5 mL mg subcut 06/21/22 06/21/22 subcutaneous pen injector (Trulicity) Allergies Allergy/AdvReac Type Severity Reaction Status Date / Time Iodinated Contrast Media Allergy Severe SEIZURE Verified 10/14/22 14:13 [IV CONTRAST] vancomycin [VANCOMYCIN] Allergy Severe ITCHING, Verified 10/14/22 14:13 SOB doxycycline [DOXYCYCLINE] Allergy Intermediate DIFFICULTY Verified 10/14/22 14:13 SWALLOWING Penicillins [PENICILLINS] Allergy Intermediate RASH Verified 10/14/22 14:13 cephalexin [From KEFLEX] Allergy Unknown RASH Verified 10/14/22 14:13 Sulfa (Sulfonamide Allergy Unknown UNKNOWN Verified 10/14/22 14:13 Antibiotics) [SULFA (SULFONAMIDE ANTIBIOTICS)] Review of Systems Review of Systems: All other systems are reviewed and are negative Constitutional: Reports as per HPI and Reports no additional constitutional complaints Eyes: Reports as per HPI and Reports no additional eye complaints Reports system reviewed and no additional complaints, except as documented Cardiovascular: Reports as per HPI and Reports no additional cardiovascular complaints Respiratory: Reports as per HPI and Reports no additional respiratory complaints Gastrointestinal: Reports as per HPI and Reports no additional gastrointestinal complaints Genitourinary: Reports no additional female genitourinary complaints Musculoskeletal: Reports no additional musculoskeletal complaints Skin/Breast: Reports system reviewed and no additional complaints, except as docu Psychiatric: Reports no additional psychiatric complaints Endocrine: Reports no additional endocrine complaints Hematologic/Lymphatic: Reports no additional hematologic/lymphatic complaints Allergic/Immunologic: Reports no additional allergic/immunologic complaints Reports system reviewed and no additional complaints, except as documented and Reports Abnormal speech present [facility] Past Medical History Medical History Chronic headaches Gout HTN (hypertension) Meningioma On beta kamar at home GINA (obstructive sleep apnea) Splenic artery aneurysm Surgical History History of History of colonoscopy (~08/2018) History of hysterectomy Hx laparoscopic cholecystectomy (~2013) Family History Family History Father Family hx of colon cancer Mother Hx of breast cancer Paternal Grandmother Colon cancer Social History Social History Household Members: None Alcohol intake: never Patient Tobacco Use Status: Never used Tobacco Smoked in Last 30 Days: No Use of substances other than those prescribed or required for medical reasons: No Advance Directives: No Advance Directives Information Provided: No Physical Exam ED Vital Signs: Vital Signs - 24 hr 10/14/22 14:13 10/14/22 16:05 10/14/22 19:08 Temperature 98 F 97.7 F Pulse Rate 71 67 73 Respiratory Rate 17 12 16 Blood Pressure 140/74 H 104/55 L 122/56 L Pulse Oximetry 97 98 95 Oxygen Delivery Method Room Air Room Air Room Air BMI result Body Mass Index 34.8 Vital signs have been reviewed as appeared to be correct. Blood pressure normal. Heart rate normal. Respiration rate normal. Temperature normal. Oxygen saturation normal. Appearance: Alert. Oriented X3. No acute distress. Head: Normal external exam. Normocephalic. Atraumatic. No Benavides signs noted. No raccoon eyes noted Eyes: PERRLA. EOMI. Conjunctiva and sclera normal. Eyelids normal. ENT: TM's Normal. Pharynx normal. Uvula midline. Moist mucous membranes. No trismus noted. No drooling noted. No muffled voice noted. Neck: Normal inspection. Neck supple. FROM. No adenopathy. Thyroid Normal. No meningeal signs. No neck mass noted. CVS: Normal heart rate and rhythm. Heart sound normal. No murmurs noted. Pulses normal throughout. Respiratory: No respiratory distress. Painless inspiration. Breath sounds normal. No wheezes/rales/rhonchi noted. Chest nontender. No accessory muscle usage noted or decreased air movement noted. Abdomen: Soft and nontender. Bowel sounds normal in all 4 quadrants. No distention noted. No organomegaly noted. No visible injury noted. Back: No CVA tenderness. Full range of motion noted. Skin: Skin warm and dry. Normal skin color. Normal skin turgor. No rashes/lesions/lacerations noted. Extremities: No lower extremity edema. Extremities exhibit normal range of motion. Extremities nontender. Neuro: Oriented X 3. Cranial nerve exam: II-XII are grossly intact No motor deficit. No sensory deficit. Reflexes normal. Course Course Course Narrative: RME performed by Krystin Hermosillo PA-C. Patient is a 67 year old assigned female at presenting to the emergency department with intermittent low blood sugar. Labs ordered. Patient placed back in the waiting room pending room availability and results. Reevaluation(s) Reevaluation #1: 67-year-old female on Trulicity for diabetes, patient had no hypoglycemia in the emergency department, no symptoms, no sign of infection. patient declined dysuria or frequency urination. Patient was instructed to follow-up with her PCP for further management of her diabetes. Time: 19:02 Medical Decision Making Differential Diagnosis Differential Diagnoses: The differential diagnosis associated with the presentation includes (Hypoglycemia, infection, electrolyte abnormalities, CONRAD, anemia, UTI.) Admission/Observation Consideration of admission/observation: Escalation of care including admission/observation considered Lab Data MDM Lab Attestation statement: I reviewed the patient's lab results. 10/14/22 15:06 10/14/22 15:57 Labs: Lab Results 10/14/22 10/14/22 10/14/22 Range/Units 15:06 15:50 15:57 WBC 9.5 (4.8-10.8) X10*3/uL RBC 5.70 H (4.20-5.50) X10*6/uL Hgb 15.7 (12.0-16.0) g/dl Hct 49.8 H (37.0-47.0) % MCV 87.4 (80.0-98.0) fL MCH 27.5 (27.0-33.0) pg MCHC 31.5 (31.0-35.0) g/dl RDW 13.3 (11.0-16.0) % Plt Count 218 (160-400) X10*3/uL MPV 9.3 L (9.4-12.3) fL Immature Gran % (Auto) 0.4 (0.0-0.4) % Neut % (Auto) 70.1 (45-73) % Lymph % (Auto) 16.4 L (20-40) % Norman % (Auto) 8.2 (2-11) % Eos % (Auto) 4.2 H (0-4) % Baso % (Auto) 0.7 (0-2) % Lymph # (Auto) 1.6 (1.2-4.9) X10*3/uL Norman # (Auto) 0.8 (0.1-1.2) X10*3/uL Eos # (Auto) 0.4 (0.0-0.4) X10*3/uL Baso # (Auto) 0.1 (0.0-0.2) X10*3/uL Abs Immat Gran (auto) 0.04 H (0.00-0.03) X10*3/uL Absolute Neuts (auto) 6.7 (2.0-8.3) x10*3/uL Absolute Nucleated RBC 0.000 (0.0-0.012) X10*3/uL Nucleated RBC % (auto) 0.0 (0.0-0.2) /100WBC Smear Tech's Comments VERIFIED Sodium 144 (135-145) mmol/L Potassium 4.3 (3.3-5.1) mmol/L Chloride 111 H (96-108) mmol/L Carbon Dioxide 25 (22-29) mmol/L Anion Gap 12 (12-20) BUN 29 H (9-16) mg/dL Creatinine 1.31 (0.5-1.4) mg/dL Estim Creat Clear Calc 46.8 Estimated GFR 40 POC Glucose 101 (60-115) mg/dL Random Glucose 99 (60-115) mg/dL Calcium 10.2 (8.4-10.2) mg/dL Magnesium 1.9 (1.6-2.6) mg/dL Total Bilirubin 0.8 (0.0-1.0) mg/dL AST 36 H (5-31) U/L ALT 48 H (0-31) U/L Alkaline Phosphatase 76 (39-117) U/L Troponin I High Sens (<3.5-17.0) ng/L B-Natriuretic Peptide (<100) pg/mL Total Protein 6.2 L (6.5-8.0) g/dL Albumin 3.9 (3.5-5.0) g/dL Urine Color Urine Appearance Urine pH (5.0-9.0) Ur Specific Cantril (1.005-1.025) Urine Protein (Neg-Trace) mg/dL Urine Glucose (UA) (Negative) mg/dL Urine Ketones (Negative) mg/dL Urine Blood (Negative) Urine Nitrite (Negative) Ur Leukocyte Esterase (Negative) Urine RBC (0-2) /HPF Urine WBC (0-5) /HPF Ur Squamous Epith Cells (0-2) /HPF Urine Bacteria (None Seen) Hyaline Casts (0-2) /LPF 10/14/22 10/14/22 10/14/22 Range/Units 15:57 15:57 16:58 WBC (4.8-10.8) X10*3/uL RBC (4.20-5.50) X10*6/uL Hgb (12.0-16.0) g/dl Hct (37.0-47.0) % MCV (80.0-98.0) fL MCH (27.0-33.0) pg MCHC (31.0-35.0) g/dl RDW (11.0-16.0) % Plt Count (160-400) X10*3/uL MPV (9.4-12.3) fL Immature Gran % (Auto) (0.0-0.4) % Neut % (Auto) (45-73) % Lymph % (Auto) (20-40) % Norman % (Auto) (2-11) % Eos % (Auto) (0-4) % Baso % (Auto) (0-2) % Lymph # (Auto) (1.2-4.9) X10*3/uL Norman # (Auto) (0.1-1.2) X10*3/uL Eos # (Auto) (0.0-0.4) X10*3/uL Baso # (Auto) (0.0-0.2) X10*3/uL Abs Immat Gran (auto) (0.00-0.03) X10*3/uL Absolute Neuts (auto) (2.0-8.3) x10*3/uL Absolute Nucleated RBC (0.0-0.012) X10*3/uL Nucleated RBC % (auto) (0.0-0.2) /100WBC Smear Tech's Comments Sodium (135-145) mmol/L Potassium (3.3-5.1) mmol/L Chloride (96-108) mmol/L Carbon Dioxide (22-29) mmol/L Anion Gap (12-20) BUN (9-16) mg/dL Creatinine (0.5-1.4) mg/dL Estim Creat Clear Calc Estimated GFR POC Glucose 83 (60-115) mg/dL Random Glucose (60-115) mg/dL Calcium (8.4-10.2) mg/dL Magnesium (1.6-2.6) mg/dL Total Bilirubin (0.0-1.0) mg/dL AST (5-31) U/L ALT (0-31) U/L Alkaline Phosphatase (39-117) U/L Troponin I High Sens < 2.7 (<3.5-17.0) ng/L B-Natriuretic Peptide 25 (<100) pg/mL Total Protein (6.5-8.0) g/dL Albumin (3.5-5.0) g/dL Urine Color Urine Appearance Urine pH (5.0-9.0) Ur Specific Cantril (1.005-1.025) Urine Protein (Neg-Trace) mg/dL Urine Glucose (UA) (Negative) mg/dL Urine Ketones (Negative) mg/dL Urine Blood (Negative) Urine Nitrite (Negative) Ur Leukocyte Esterase (Negative) Urine RBC (0-2) /HPF Urine WBC (0-5) /HPF Ur Squamous Epith Cells (0-2) /HPF Urine Bacteria (None Seen) Hyaline Casts (0-2) /LPF 10/14/22 10/14/22 Range/Units 18:00 19:15 WBC (4.8-10.8) X10*3/uL RBC (4.20-5.50) X10*6/uL Hgb (12.0-16.0) g/dl Hct (37.0-47.0) % MCV (80.0-98.0) fL MCH (27.0-33.0) pg MCHC (31.0-35.0) g/dl RDW (11.0-16.0) % Plt Count (160-400) X10*3/uL MPV (9.4-12.3) fL Immature Gran % (Auto) (0.0-0.4) % Neut % (Auto) (45-73) % Lymph % (Auto) (20-40) % Norman % (Auto) (2-11) % Eos % (Auto) (0-4) % Baso % (Auto) (0-2) % Lymph # (Auto) (1.2-4.9) X10*3/uL Norman # (Auto) (0.1-1.2) X10*3/uL Eos # (Auto) (0.0-0.4) X10*3/uL Baso # (Auto) (0.0-0.2) X10*3/uL Abs Immat Gran (auto) (0.00-0.03) X10*3/uL Absolute Neuts (auto) (2.0-8.3) x10*3/uL Absolute Nucleated RBC (0.0-0.012) X10*3/uL Nucleated RBC % (auto) (0.0-0.2) /100WBC Smear Tech's Comments Sodium (135-145) mmol/L Potassium (3.3-5.1) mmol/L Chloride (96-108) mmol/L Carbon Dioxide (22-29) mmol/L Anion Gap (12-20) BUN (9-16) mg/dL Creatinine (0.5-1.4) mg/dL Estim Creat Clear Calc Estimated GFR POC Glucose 100 (60-115) mg/dL Random Glucose (60-115) mg/dL Calcium (8.4-10.2) mg/dL Magnesium (1.6-2.6) mg/dL Total Bilirubin (0.0-1.0) mg/dL AST (5-31) U/L ALT (0-31) U/L Alkaline Phosphatase (39-117) U/L Troponin I High Sens (<3.5-17.0) ng/L B-Natriuretic Peptide (<100) pg/mL Total Protein (6.5-8.0) g/dL Albumin (3.5-5.0) g/dL Urine Color Yellow Urine Appearance Clear Urine pH 7.0 (5.0-9.0) Ur Specific Cantril 1.015 (1.005-1.025) Urine Protein Negative (Neg-Trace) mg/dL Urine Glucose (UA) Negative (Negative) mg/dL Urine Ketones Negative (Negative) mg/dL Urine Blood Negative (Negative) Urine Nitrite Negative (Negative) Ur Leukocyte Esterase Moderate (2+) H (Negative) Urine RBC 0-2 (0-2) /HPF Urine WBC 0-5 (0-5) /HPF Ur Squamous Epith Cells 0-2 (0-2) /HPF Urine Bacteria None Seen (None Seen) Hyaline Casts 0-2 (0-2) /LPF Independent Interpretation I performed an independent interpretation of an: Plain X-Ray (Chest: No acute intrathoracic pathology.) Radiology Impression Discussion of test interpretation with radiology: I have reviewed the radiologist's reading. Discharge Plan Discharge Clinical Impression: Hypoglycemia Patient Disposition: Home, Self-Care Instructions: Hypoglycemia in a Person with Diabetes (ED) Additional Instructions: We found 10-20 point of discrepancy in your blood sugar in our machine and your monitor, use a different patch and follow-up with your PCP for further management of your diabetes. Prescriptions: No Action triamcinolone acetonide 0.1 % cream topical DAILY metoprolol tartrate 50 mg tablet 1 tab PO BID ondansetron 4 mg tablet,disintegrating 1 tab PO BID PRN (Reason: nausea/vomiting) allopurinol 100 mg tablet 1 tab PO DAILY amlodipine-atorvastatin 5-20 mg tablet 1 tab PO DAILY Trulicity 0.75 mg/0.5 mL pen injector subcut Referrals: Physician,None [Primary Care Provider] -
[2022-10-14 16:05] VITALS: BP 104/55; PULSE 67; RESP 12; O2SAT 98
[2022-10-14 19:08] VITALS: BP 122/56; PULSE 73; RESP 16; TEMP 36.5; O2SAT 95
--- NOTE | 2022-10-14 20:24 | PC.NURSE ---
pt left prior to discharge paper work provided. pt daughter at bedside prior to discharge. pt ambulatory. unable to provide pt with paperwork. charge machine operator made aware
== END 2022-10-14 20:30 | disposition home or self-care (01) ==
PROVIDERS: Emergency Provider Emergency Medicine
DX: E11.649 Type 2 diabetes mellitus with hypoglycemia without coma (principal); I10 Essential (primary) hypertension; Z79.85 Long-term (current) use of injectable non-insulin antidiabetic drugs; Z79.899 Other long term (current) drug therapy
CPT/HCPCS: 36415; 71046; 80053; 81001; 82947; 83735; 83880; 84484; 85025; 93005; 99283; 99284

== ENCOUNTER 2022-11-29 13:32 | Outpatient (AMB) | payer BC, SELFPAY ==
--- NOTE | 2022-11-29 13:33 | A.OFFPC_ITS ---
Vital Signs 11/29/22 13:38 Height 5 ft 5 in Weight 221 lb 2 oz BMI 36.8 BP 140/60 H Blood Pressure Location Rt brachial Position Sitting Pulse 76 Pulse Source Pulse Oximeter Pulse Oximetry (%) 96 Oxygen Delivery Method Room Air Intake Visit Reasons: New patient-high BP, diabetes Allergies Iodinated Contrast Media [IV CONTRAST] Allergy (Severe, Verified 11/29/22 13:33) SEIZURE vancomycin [VANCOMYCIN] Allergy (Severe, Verified 11/29/22 13:33) ITCHING, SOB doxycycline [DOXYCYCLINE] Allergy (Intermediate, Verified 11/29/22 13:33) DIFFICULTY SWALLOWING Penicillins [PENICILLINS] Allergy (Intermediate, Verified 11/29/22 13:33) RASH cephalexin [From KEFLEX] Allergy (Unknown, Verified 11/29/22 13:33) RASH Sulfa (Sulfonamide Antibiotics) [SULFA (SULFONAMIDE ANTIBIOTICS)] Allergy ( Unknown, Verified 11/29/22 13:33) UNKNOWN Medication List - Last Reconciled 11/29/22 by Fito Lopez MD allopurinol 1 tab PO DAILY amlodipine-atorvastatin 5-20 mg 1 tab PO DAILY dulaglutide (Trulicity) mg subcut metoprolol tartrate 1 tab PO BID [id number]-legdxpobk 3.5-10,000-10 mg-unit-mg/gram (Neosporin Plus Pain Relief) 1 appl topical DAILY PRN ondansetron 1 tab PO BID PRN triamcinolone acetonide 0.1% appl topical DAILY Tobacco use date assessed: 11/29/22 Fall risk assessment: 1 Fall in past year Last assessed Fall Risk: 11/29/22 Dental Screening Dental Screen Date: 11/29/22 Did you have a dental visit in the last 12 months?: No Did you have a dental problem in the last 6 months where you did not have access to dental care?: No Was dental information given to patient?: No HPI New patient-high BP, diabetes HPI Details Patient is 67-year-old female came in today for establish care visit She is diabetic currently taking Trulicity her hemoglobin A1c is 6.1 today Patient is obese with BMI of 36.8, she would like to be switched to Ozempic which I have. She was start that from next Sunday as she has already taking Trulicity for this week. Nephropathy: Patient's GFR is in 40s she is seeing Dr. Monster Martinez Hypertension: Blood pressure is slightly elevated today at 140/60 it was 122 systolic October 14 when she was seen in emergency room. Patient says that she presented to emergency room thinking that she is having h ypoglycemia but her sensor was not working. Currently she is taking amlodipine atorvastatin 5-20 mg once a day for blood pressure as well as for lipid control. 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 She is complaining of chronic irritated cough I wanted to start her on PPI which she declined, she is already taking Claritin for postnasal dripping. She has chronic lower extremity edema which gets better when she wakes up in the morning and is worse at the end of the day. She has no problem sleeping on 1 pillow no shortness of breath She says that she was on diuretic but then it was stopped when she went to the hospital as she was told she is not drinking enough water. We talked about compression stockings I think that will be the better option for the patient. Mammogram is up-to-date Colonoscopy was September of last year by Dr. Beasley next 1 will be either 3 or 5 years 1 tubular polyp was found. Patient have sleep apnea in the past she is requesting a referral to sleep specialist which I have placed for her. I will also be booking appointment with the dietitian so patient can discuss diabetic diet and also diet to lose weight. Labs to be done fasting before next visit Osteoarthritis knees bilateral, patient says that she need a knee replacement but she is afraid to have that done she is still thinking about it Patient is to return in 3 months for follow-up [facility] Medical History Chronic headaches Gout HTN (hypertension) Meningioma On beta kamar at home GINA (obstructive sleep apnea) Splenic artery aneurysm Surgical History History of History of colonoscopy (~08/2018) History of hysterectomy Hx laparoscopic cholecystectomy (~2013) Family History Father Family hx of colon cancer Mother Hx of breast cancer Paternal Grandmother Colon cancer Social History Household Members: None Alcohol intake: never Patient Tobacco Use Status: Never used Tobacco e-Cigarette/Vaping Use: Never Used service: No Cognitive needs: No Hearing needs: No Vision needs: No Questionnaire AUDIT C Alcohol Use Questionnaire (AUDIT-C) 1. How often do you have a drink containing alcohol?: Never 3. How often do you have six or more drinks on one occasion?: Never Total Score: 0 Score Reviewed/Action Taken: Yes Review of Systems Const Denies chills and Denies fever(s) ENT Denies epistaxis and Denies nasal discharge Card Denies chest pain Resp Denies chest congestion, Denies cough and Denies hemoptysis GI Denies diarrhea and Denies nausea Skin/Breast Denies rash Neuro Reports no additional complaints Psych Reports no additional complaints Endo Reports no additional complaints Physical exam (Primary Care) Vital Signs: Last Vital Signs Pulse 76 11/29/22 13:38 BP 140/60 H 11/29/22 13:38 Pulse Ox 96 11/29/22 13:38 Oxygen Delivery Method Room Air 11/29/22 13:38 BMI result Body Mass Index 36.8 Tobacco/Smoking Status: Tobacco use Status Tobacco use date assessed 11/29/22 11/29/22 13:34 Patient Tobacco Use Status Never used Tobacco 11/29/22 13:34 e-Cigarette/Vaping Use Never Used 11/29/22 13:34 Const General: cooperative, comfortable and no acute distress Orientation/consciousness: patient oriented x3 HENMT Head: Yes normocephalic Eyes General: appearance normal, both eyes and all related structures Neck Neck: Yes supple Resp Effort & Inspection: normal respiratory effort, no cough and no stridor Cardio Rhythm: regular rhythm Heart sounds: S1 normal heart sound present and S2 normal heart sound present Skin General skin exam: turgor normal Neuro General: patient oriented x3, tone normal and moves all extremities Extrem Other: Minimal ankle swelling Results AMB Hemoglobin A1c AMB Hemoglobin A1c 6.1 % Last Edit by Tino Kidd CMA on 11/29/22 14: 02 Results Reviewed Results Reviewed: Laboratory Last Values Hgb A1c (Clinic) 6.1 % (4.0-6.0) H 11/29/22 13:59 Assessment and Plan Assessment & Plan (1) Hyperlipidemia: Code(s): E78.5 - Hyperlipidemia, unspecified (2) Establishing care with new doctor, encounter for: Code(s): Z76.89 - Persons encountering health services in other specified circumstances (3) Obstructive sleep apnea: Comment: does not use CPAP Code(s): G47.33 - Obstructive sleep apnea (adult) (pediatric) (4) Osteoarthritis of knees, bilateral: Code(s): M17.0 - Bilateral primary osteoarthritis of knee (5) Gout, arthritis: Code(s): M10.9 - Gout, unspecified (6) Obesity due to excess calories: Code(s): E66.09 - Other obesity due to excess calories (7) Edema, lower extremity: Code(s): R60.0 - Localized edema (8) Peripheral vascular disease: Code(s): I73.9 - Peripheral vascular disease, unspecified Plan Patient is 67-year-old female came in today for establish care visit She is diabetic currently taking Trulicity her hemoglobin A1c is 6.1 today Patient is obese with BMI of 36.8, she would like to be switched to Ozempic which I have. She was start that from next Sunday as she has already taking Trulicity for this week. Nephropathy: Patient's GFR is in 40s she is seeing Dr. Monster Martinez Hypertension: Blood pressure is slightly elevated today at 140/60 it was 122 systolic October 14 when she was seen in emergency room. Patient says that she presented to emergency room thinking that she is having hypoglycemia but her sensor was not working. Currently she is taking amlodipine atorvastatin 5-20 mg once a day for blood pressure as well as for lipid control. 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 She is complaining of chronic irritated cough I wanted to start her on PPI which she declined, she is already taking Claritin for postnasal dripping. She has chronic lower extremity edema which gets better when she wakes up in the morning and is worse at the end of the day. She has no problem sleeping on 1 pillow no shortness of breath She says that she was on diuretic but then it was stopped when she went to the hospital as she was told she is not drinking enough water. We talked about compression stockings I think that will be the better option for the patient. Mammogram is up-to-date Colonoscopy was September of last year by Dr. Beasley next 1 will be either 3 or 5 years 1 tubular polyp was found. Patient have sleep apnea in the past she is requesting a referral to sleep specialist which I have placed for her. I will also be booking appointment with the dietitian so patient can discuss diabetic diet and also diet to lose weight. Labs to be done fasting before next visit Osteoarthritis knees bilateral, patient says that she need a knee replacement but she is afraid to have that done she is still thinking about it Patient is to return in 3 months for follow-up Orders: Orders Vitamin B12 Today E66.09 - Other obesity due to excess calories, E78.5 - Hyperlipidemia, unspecified, G47.33 - Obstructive sleep apnea (adult) (pediatric), G89.4 - Chronic pain syndrome, M10.9 - Gout, unspecified, M17.0 - Bilateral primary osteoarthritis of knee, Z76.89 - Persons encountering health services in other specified circumstances Comprehensive [place]. Panel Fast Today E66.09 - Other obesity due to excess calories, E78.5 - Hyperlipidemia, unspecified, G47.33 - Obstructive sleep apnea (adult) (pediatric), G89.4 - Chronic pain syndrome, M10.9 - Gout, unspecified, M17.0 - Bilateral primary osteoarthritis of knee, Z76.89 - Persons encountering health services in other specified circumstances Hemoglobin A1c Today E66.09 - Other obesity due to excess calories, E78.5 - Hyperlipidemia, unspecified, G47.33 - Obstructive sleep apnea (adult) (pediatric), G89.4 - Chronic pain syndrome, M10.9 - Gout, unspecified, M17.0 - Bilateral primary osteoarthritis of knee, Z76.89 - Persons encountering health services in other specified circumstances Lipid Panel Today E66.09 - Other obesity due to excess calories, E78.5 - Hyperlipidemia, unspecified, G47.33 - Obstructive sleep apnea (adult) (pediatric), G89.4 - Chronic pain syndrome, M10.9 - Gout, unspecified, M17.0 - Bilateral primary osteoarthritis of knee, Z76.89 - Persons encountering health services in other specified circumstances TSH reflex Free T4 Today E66.09 - Other obesity due to excess calories, E78.5 - Hyperlipidemia, unspecified, G47.33 - Obstructive sleep apnea (adult) (pediatric), G89.4 - Chronic pain syndrome, M10.9 - Gout, unspecified, M17.0 - Bilateral primary osteoarthritis of knee, Z76.89 - Persons encountering health services in other specified circumstances Vitamin D 25-OH (D2 and D3) Today E66.09 - Other obesity due to excess calories, E78.5 - Hyperlipidemia, unspecified, G47.33 - Obstructive sleep apnea (adult) (pediatric), G89.4 - Chronic pain syndrome, M10.9 - Gout, unspecified, M17.0 - Bilateral primary osteoarthritis of knee, Z76.89 - Persons encountering health services in other specified circumstances Microalbumin, Random (w Creat) Today E66.09 - Other obesity due to excess calories, E78.5 - Hyperlipidemia, unspecified, G47.33 - Obstructive sleep apnea (adult) (pediatric), G89.4 - Chronic pain syndrome, M10.9 - Gout, unspecified, M17.0 - Bilateral primary osteoarthritis of knee, Z76.89 - Persons encountering health services in other specified circumstances Complete Blood Count Auto Diff Today E66.09 - Other obesity due to excess calories, E78.5 - Hyperlipidemia, unspecified, G47.33 - Obstructive sleep apnea (adult) (pediatric), G89.4 - Chronic pain syndrome, M10.9 - Gout, unspecified, M17.0 - Bilateral primary osteoarthritis of knee, Z76.89 - Persons encountering health services in other specified circumstances AMB Hemoglobin A1c Today Z13.9 - Encounter for screening, unspecified Referrals Sleep Medicine Referral G47.33 - Obstructive sleep apnea (adult) (pediatric) Medications: New amlodipine-atorvastatin 5-20 mg 1 tab PO DAILY 90 tabs 0RF buspirone 5 mg PO .q am PRN 30 tabs 0RF anxiety 30 days Coding Level of Care Code New Pt Level 5 (09867) Diagnoses Hyperlipidemia E78.5 Establishing care with new doctor, encounter for Z76.89 Obstructive sleep apnea G47.33 Osteoarthritis of knees, bilateral M17.0 Gout, arthritis M10.9 Obesity due to excess calories E66.09 Edema, lower extremity R60.0 Peripheral vascular disease I73.9 Time Spent (min) 60 Comment 40 weight patient, 20 charting, and coordination of care
[2022-11-29 13:38] VITALS: BP 140/60; PULSE 76; O2SAT 96; BMI 36.8
== END 2022-11-29 14:26 | disposition home or self-care (01) ==
PROVIDERS: Visit Provider Internal Medicine
DX: E78.5 Hyperlipidemia, unspecified (principal); I73.9 Peripheral vascular disease, unspecified; Z68.36 Body mass index [BMI] 36.0-36.9, adult; E11.69 Type 2 diabetes mellitus with other specified complication; G47.33 Obstructive sleep apnea (adult) (pediatric); E66.09 Other obesity due to excess calories; M17.0 Bilateral primary osteoarthritis of knee; M10.9 Gout, unspecified; R60.0 Localized edema
CPT/HCPCS: 83036; 99205

== ENCOUNTER 2022-11-29 13:59 | Outpatient (REF) | payer BC, SELFPAY | END 2022-11-29 14:00 | disposition home or self-care (01) | LOC: HO.LNP 13:59 | PROVIDERS: Visit Provider Internal Medicine | DX: Z13.89 Encounter for screening for other disorder (principal) ==

== ENCOUNTER 2022-11-29 13:59 | Outpatient (REF) | payer BC, SELFPAY | END 2022-11-29 14:00 | disposition home or self-care (01) | LOC: HO.LAB 13:59 | PROVIDERS: Visit Provider Internal Medicine | DX: Z13.89 Encounter for screening for other disorder (principal) ==

== ENCOUNTER 2022-12-04 10:36 | Outpatient (REF) | payer BC, SELFPAY ==
[2022-12-04 13:22] LABS: MANUAL DIFF FLAG NO
[2022-12-04 13:55] LABS: Basophils Absolute Auto 0.1 X10*3/uL (0.0-0.2); Basophils Percent Auto 0.8 % (0-2); Eosinophils Absolute Auto 0.4 X10*3/uL (0.0-0.4); Eosinophils Percent Auto 4.8 % (0-4); Hematocrit 46.3 % (37.0-47.0); Hemoglobin 15.3 g/dl (12.0-16.0); Imm Gran Abs Auto 0.04 X10*3/uL (0.00-0.03); Imm Gran Pct Auto 0.5 % (0.0-0.4); Lymphocytes Absolute Auto 1.5 X10*3/uL (1.2-4.9); Lymphocytes Percent Auto 19.3 % (20-40); Mean Corpuscular Hemoglobin 27.6 pg (27.0-33.0); Mean Corpuscular Volume 83.4 fL (80.0-98.0); Mean Platelet Volume 9.4 fL (9.4-12.3); Monocytes Absolute Auto 0.6 X10*3/uL (0.1-1.2); Monocytes Percent Auto 7.1 % (2-11); Neutrophils Absolute Auto 5.2 x10*3/uL (2.0-8.3); Neutrophils Percent Auto 67.5 % (45-73); Platelet Count 208 X10*3/uL (160-400); Red Blood Count 5.55 X10*6/uL (4.20-5.50); Red Cell Distribution Width 13.5 % (11.0-16.0); White Blood Count 7.8 X10*3/uL (4.8-10.8)
[2022-12-04 13:56] LABS: Estimated Average Glucose 114 mg/dL; Hemoglobin A1C 150.9719 umol/L; Hemoglobin A1c % 5.6 % (<6.0)
[2022-12-04 14:25] LABS: Alanine Aminotransferase 33 U/L (0-31); Albumin Level 3.9 g/dL (3.5-5.0); Alkaline Phosphatase 76 U/L (39-117); Anion Gap 10 (12-20); Aspartate Amino Transferase 25 U/L (5-31); Bilirubin Total 0.6 mg/dL (0.0-1.0); Blood Urea Nitrogen 24 mg/dL (9-16); Carbon Dioxide 25 mmol/L (22-29); Chloride 115 mmol/L (96-108); Cholesterol 167 mg/dL (<200); Estimated Glomerular Filt Rate 53; Glucose Fasting 104 mg/dL (60-99); HDL Cholesterol 52 mg/dL (>40); LDL Cholesterol Calculated 99 mg/dL (<100); Potassium 4.1 mmol/L (3.3-5.1); Sodium 146 mmol/L (135-145); TSH reflex Free T4 1.35 uIU/mL (0.32-4.0); Total Protein 6.3 g/dL (6.5-8.0); Triglycerides 80 mg/dL (<150)
[2022-12-04 14:28] LABS: Vitamin B12 588 pg/mL (200-900)
[2022-12-04 14:45] LABS: Creatinine Urine 119.29 mg/dL; Microalbumin Urine < 5.0 mg/L
[2022-12-08 19:12] LABS: Vitamin D 25-OH, D2 <4 ng/mL; Vitamin D 25-OH, D3 28 ng/mL; Vitamin D 25-OH, Total 28 ng/mL (30-100)
== END 2022-12-04 10:37 | disposition home or self-care (01) ==
LOC: HO.HMGCLDS 10:36
PROVIDERS: PCP Internal Medicine; Visit Provider Internal Medicine
DX: E66.09 Other obesity due to excess calories (principal); E78.5 Hyperlipidemia, unspecified; G47.33 Obstructive sleep apnea (adult) (pediatric); G89.4 Chronic pain syndrome; M10.9 Gout, unspecified; M17.0 Bilateral primary osteoarthritis of knee; Z76.89 Persons encountering health services in other specified circumstances
CPT/HCPCS: 36415; 80053; 80061; 82043; 82306; 82607; 83036; 84443; 85025

== ENCOUNTER 2022-12-05 15:17 | Outpatient (AMB) | payer BC, SELFPAY ==
[2022-12-05 15:30] VITALS: BP 128/62; PULSE 84; TEMP 36.8; O2SAT 98; BMI 36.8
--- NOTE | 2022-12-05 15:30 | MHC.OFFWIV ---
Intake Vital Signs 12/05/22 15:30 Height 5 ft 5 in Weight 221 lb BMI 36.8 BP 128/62 Blood Pressure Location Rt brachial Position Sitting Pulse 84 Pulse Source Pulse Oximeter Temp 98.3 F Temp Source Temporal Artery Scan Pulse Oximetry (%) 98 Intake Visit Reasons: EP ?LT leg infection Intake Note: Pt is here c/o possible left leg infection. Patient Tobacco Use Status: Never used Tobacco Allergies Iodinated Contrast Media [IV CONTRAST] Allergy (Severe, Verified 12/05/22 16:11) SEIZURE vancomycin [VANCOMYCIN] Allergy (Severe, Verified 12/05/22 16:11) ITCHING, SOB doxycycline [DOXYCYCLINE] Allergy (Intermediate, Verified 12/05/22 16:11) DIFFICULTY SWALLOWING Penicillins [PENICILLINS] Allergy (Intermediate, Verified 12/05/22 16:11) RASH cephalexin [From KEFLEX] Allergy (Unknown, Verified 12/05/22 16:11) RASH Sulfa (Sulfonamide Antibiotics) [SULFA (SULFONAMIDE ANTIBIOTICS)] Allergy (Unknown, Verified 12/05/22 16:11) UNKNOWN Medication List - Last Reconciled 12/05/22 by Hema Martniez MD allopurinol 1 tab PO DAILY amlodipine-atorvastatin 5-20 mg 1 tab PO DAILY buspirone 5 mg PO .q am PRN 30 days dulaglutide (Trulicity) 0.75 mg (0.5 mL) subcut QWEEK 90 days metoprolol tartrate 1 tab PO BID [id number]-yjopnfbpg-zdpneqeci 3.5-10,000-10 mg-unit-mg/gram (Neosporin Plus Pain Relief) 1 appl topical DAILY PRN ondansetron 1 tab PO BID PRN triamcinolone acetonide 0.1% appl topical DAILY Do you need a note to return to daycare/school/sports/work: No HPI EP ?LT leg infection HPI Details 67-year-old female presents to the office for a sick visit. Patient is reporting swelling over the left leg. She also has redness and a possible insect bite yesterday. Reporting symptoms of minimal pain. [facility] Medical History Chronic headaches Gout HTN (hypertension) Meningioma On beta kamar at home GINA (obstructive sleep apnea) Splenic artery aneurysm Surgical History History of History of colonoscopy (~08/2018) History of hysterectomy Hx laparoscopic cholecystectomy (~2013) Family History Father Family hx of colon cancer Mother Hx of breast cancer Paternal Grandmother Colon cancer Social History Household Members: None Alcohol intake: never Patient Tobacco Use Status: Never used Tobacco e-Cigarette/Vaping Use: Never Used service: No Cognitive needs: No Hearing needs: No Vision needs: No Physical Exam Vital Signs: Last Vital Signs Temp 98.3 F 12/05/22 15:30 Pulse 84 12/05/22 15:30 BP 128/62 12/05/22 15:30 Pulse Ox 98 12/05/22 15:30 BMI result Body Mass Index 36.8 Extrem Other: Left le+ pitting edema with erythema. Assessment & Plan Assessment & Plan (1) Cellulitis of left leg: Code(s): L03.116 - Cellulitis of left lower limb Plan: Cipro and Lasix called in. If symptoms not better to follow-up with primary care provider. Coding Level of Care Code Est Pt Level 3 (75910) Diagnoses Cellulitis of left leg L03.116
== END 2022-12-05 16:40 | disposition home or self-care (01) ==
PROVIDERS: PCP Internal Medicine; Visit Provider Internal Medicine
DX: L03.116 Cellulitis of left lower limb (principal)
CPT/HCPCS: 99213

== ENCOUNTER 2022-12-06 13:50 | Outpatient (AMB) | payer BC, SELFPAY ==
[2022-12-06 13:54] VITALS: BP 134/72; PULSE 76; O2SAT 96; BMI 19.8
--- NOTE | 2022-12-06 13:54 | A.OFFPC_ITS ---
Vital Signs 12/06/22 13:54 Height 5 ft 5 in Weight 119 lb 4 oz BMI 19.8 BP 134/72 Blood Pressure Location Rt brachial Position Sitting Pulse 76 Pulse Source Pulse Oximeter Pulse Oximetry (%) 96 Oxygen Delivery Method Room Air Intake Visit Reasons: discuss health issues Allergies Iodinated Contrast Media [IV CONTRAST] Allergy (Severe, Verified 12/06/22 13:55) SEIZURE vancomycin [VANCOMYCIN] Allergy (Severe, Verified 12/06/22 13:55) ITCHING, SOB doxycycline [DOXYCYCLINE] Allergy (Intermediate, Verified 12/06/22 13:55) DIFFICULTY SWALLOWING Penicillins [PENICILLINS] Allergy (Intermediate, Verified 12/06/22 13:55) RASH cephalexin [From KEFLEX] Allergy (Unknown, Verified 12/06/22 13:55) RASH Sulfa (Sulfonamide Antibiotics) [SULFA (SULFONAMIDE ANTIBIOTICS)] Allergy (Unknown, Verified 12/06/22 13:55) UNKNOWN Medication List - Last Reconciled 12/06/22 by Fito Lopez MD allopurinol 1 tab PO DAILY amlodipine-atorvastatin 5-20 mg 1 tab PO DAILY buspirone 5 mg PO .q am PRN 30 days ciprofloxacin HCl 250 mg PO BID dulaglutide (Trulicity) 0.75 mg (0.5 mL) subcut QWEEK 90 days furosemide (Lasix) 20 mg PO DAILY metoprolol tartrate 1 tab PO BID zrxamblj-difvtgrpu-gutsnbfyl 3.5-10,000-10 mg-unit-mg/gram (Neosporin Plus Pain Relief) 1 appl topical DAILY PRN ondansetron 1 tab PO BID PRN triamcinolone acetonide 0.1% appl topical DAILY Tobacco use date assessed: 12/06/22 Fall risk assessment: 1 Fall in past year Last assessed Fall Risk: 12/06/22 Dental Screening Dental Screen Date: 12/06/22 Did you have a dental visit in the last 12 months?: No Did you have a dental problem in the last 6 months where you did not have access to dental care?: No Was dental information given to patient?: No HPI discuss health issues HPI Details Labs done recently reviewed sodium is 145 I would recommend patient to drink little bit more water She was evaluated in our walk-in clinic for open left lower leg sore and was given Cipro as patient is allergic to so many antibiotics She took low doses and felt nauseous so she stopped taking it in came in to discuss that. Her leg seems better there is no open sores anymore she does have a small scab which seems to be healing well I would recommend to stop antibiotic at this time and just continue to observe. She also has been having swelling of her ankles off and on for that I have placed a referral to a vascular specialist for evaluation. She is requesting Ozempic injection which I did sent last time she was supposed to stop Trulicity but she did not get Ozempic. She said that she call her insurance company and they said it is covered. She would like to try that to lose some weight. Her recent hemoglobin A1c is 5.6. I am not sure if she needs Trulicity or Ozempic but if she want to try she can try Ozempic and stop Trulicity. Patient was instructed to keep of sugar Candy in her pocketbook just in case if she feels that her sugar is getting low she can take that. [facility] Medical History Chronic headaches Gout HTN (hypertension) Meningioma On beta kamar at home GINA (obstructive sleep apnea) Splenic artery aneurysm Surgical History History of History of colonoscopy (~08/2018) History of hysterectomy Hx laparoscopic cholecystectomy (~2013) Family History Father Family hx of colon cancer Mother Hx of breast cancer Paternal Grandmother Colon cancer Social History Household Members: None Housing: House Alcohol intake: never Patient Tobacco Use Status: Never used Tobacco e-Cigarette/Vaping Use: Never Used service: No Cognitive needs: No Hearing needs: No Vision needs: No Questionnaire PHQ-9 Over the last 2 weeks, how often have you been bothered by any of the following problems? 1. Little interest or pleasure in doing things: not at all 2. Feeling down, depressed, or hopeless: not at all 3. Trouble falling or staying asleep, or sleeping too much: several days 4. Feeling tired or having little energy: several days 5. Poor appetite or overeating: nearly every day 6. Feeling bad about yourself - or that you are a failure or have let yourself or your family down: not at all 7. Trouble concentrating on things, such as reading the newspaper or watching television: not at all 8. Moving or speaking so slowly that other people could have noticed. Or the opposite - being so fidgety or restless that you have been moving around a lot more than usual: not at all 9. Thoughts that you would be better off or of hurting yourself in some way: not at all Total score: 5 Depression Screening Interpretation: Negative [id number] - PHQ-9 Billing: Yes Source: Developed by Drs. Demetrio Nolasco, Shreya Bray, Maximino Bruno and colleagues, with an educational jackie from [employer]. AUDIT C Alcohol Use Questionnaire (AUDIT-C) 1. How often do you have a drink containing alcohol?: Never 3. How often do you have six or more drinks on one occasion?: Never Total Score: 0 Score Reviewed/Action Taken: Yes Review of Systems Const Denies chills and Denies fever(s) ENT Denies epistaxis and Denies nasal discharge Card Denies chest pain Resp Denies chest congestion, Denies cough and Denies hemoptysis GI Denies diarrhea and Denies nausea Skin/Breast Denies rash Neuro Reports no additional complaints Psych Reports no additional complaints Endo Reports no additional complaints Physical exam (Primary Care) Vital Signs: Last Vital Signs Pulse 76 12/06/22 13:54 BP 134/72 12/06/22 13:54 Pulse Ox 96 12/06/22 13:54 Oxygen Delivery Method Room Air 12/06/22 13:54 BMI result Body Mass Index 19.8 Tobacco/Smoking Status: Tobacco use Status Tobacco use date assessed 12/06/22 12/06/22 13:57 Patient Tobacco Use Status Never used Tobacco 12/06/22 13:57 e-Cigarette/Vaping Use Never Used 12/06/22 13:57 Depression Screening Interpretation: Negative Const General: cooperative, comfortable and no acute distress Orientation/consciousness: patient oriented x3 HENMT Head: Yes normocephalic Eyes General: appearance normal, both eyes and all related structures Neck Neck: Yes supple Resp Effort & Inspection: normal respiratory effort, no cough and no stridor Cardio Rhythm: regular rhythm Heart sounds: S1 normal heart sound present and S2 normal heart sound present Skin General skin exam: turgor normal Neuro General: patient oriented x3, tone normal and moves all extremities Extrem Upper/lower leg/hip images: 1. 1 cm round scab, with mild erythema, no discharge seen Assessment and Plan Assessment & Plan (1) Diabetes 1.5, managed as type 1: Code(s): E13.9 - Other specified diabetes mellitus without complications (2) Peripheral vascular disease: Code(s): I73.9 - Peripheral vascular disease, unspecified (3) Edema, lower extremity: Code(s): R60.0 - Localized edema (4) Multiple drug allergies: Code(s): Z88.9 - Allergy status to unspecified drugs, medicaments and biological substances (5) Cellulitis of left leg: Code(s): L03.116 - Cellulitis of left lower limb (6) Obesity due to excess calories: Code(s): E66.09 - Other obesity due to excess calories Qualifiers: Body mass index: BMI 39.0-39.9 Obesity classification: adult class 2 (BMI 35 - 39.9) Serious obesity comorbidity presence: with serious comorbidity Qualified Code(s): E66.01 - Morbid (severe) obesity due to excess calories; Z68.39 - Body mass index [BMI] 39.0-39.9, adult (7) Chronic nephropathy: Code(s): N03.9 - Chronic nephritic syndrome with unspecified morphologic changes Plan Labs done recently reviewed sodium is 145 I would recommend patient to drink little bit more water She was evaluated in our walk-in clinic for open left lower leg sore and was given Cipro as patient is allergic to so many antibiotics She took low doses and felt nauseous so she stopped taking it in came in to discuss that. Her leg seems better there is no open sores anymore she does have a small scab which seems to be healing well I would recommend to stop antibiotic at this time and just continue to observe. She also has been having swelling of her ankles off and on for that I have placed a referral to a vascular specialist for evaluation. She is requesting Ozempic injection which I did sent last time she was supposed to stop Trulicity but she did not get Ozempic. She said that she call her insurance company and they said it is covered. She would like to try that to lose some weight. Her recent hemoglobin A1c is 5.6. I am not sure if she needs Trulicity or Ozempic but if she want to try she can try Ozempic and stop Trulicity. Patient was instructed to keep of sugar Candy in her pocketbook just in case if she feels that her sugar is getting low she can take that. GFR is in 50s she is currently seeing a hide dyer Orders: Referrals Vascular Surgery Referral I73.9 - Peripheral vascular disease, unspecified Medications: New [Ladonna sensor] As directed 1 ea 0RF E13.9 - Other specified diabetes mellitus without complications Changed From semaglutide for 4 weeks 0.25 mg (0.368 mL) subcut QWEEK 3 mL 0RF To semaglutide (Ozempic) for 4 weeks 0.25 mg (0.368 mL) subcut QWEEK 4.784 mL 0RF 90 days Refilled ciprofloxacin HCl 250 mg PO BID 10 tabs 0RF Discontinued furosemide (Lasix) Discontinued Reason: Doctor's Order 20 mg PO DAILY 7 tabs 0RF dulaglutide (Trulicity) Discontinued Reason: Doctor's Order 0.75 mg (0.5 mL) subcut QWEEK 90 days 6.5 mL 3RF Coding Level of Care Code Est Pt Level 4 (13687) Diagnoses Diabetes 1.5, managed as type 1 E13.9 Peripheral vascular disease I73.9 Edema, lower extremity R60.0 Multiple drug allergies Z88.9 Cellulitis of left leg L03.116 Obesity due to excess calories E66.01; Z68.39 Body mass index: BMI 39.0-39.9 Obesity classification: adult class 2 (BMI 35 - 39.9) Serious obesity comorbidity presence: with serious comorbidity Chronic nephropathy N03.9
== END 2022-12-06 16:00 | disposition home or self-care (01) ==
PROVIDERS: PCP Internal Medicine; Visit Provider Internal Medicine
DX: E13.9 Other specified diabetes mellitus without complications (principal); Z88.9 Allergy status to unspecified drugs, medicaments and biological substances; E66.01 Morbid (severe) obesity due to excess calories; Z68.39 Body mass index [BMI] 39.0-39.9, adult; I73.9 Peripheral vascular disease, unspecified; R60.0 Localized edema; L03.116 Cellulitis of left lower limb; N03.9 Chronic nephritic syndrome with unspecified morphologic changes
CPT/HCPCS: 99214

== ENCOUNTER → 2022-12-28 08:45 | Outpatient (BNV) | payer BC, SELFPAY | PROVIDERS: PCP Internal Medicine; Visit Provider Radiology Diagnostic Radiology | DX: Z12.31 Encounter for screening mammogram for malignant neoplasm of breast (principal) | CPT/HCPCS: 77063; 77067 ==

== ENCOUNTER 2022-12-28 08:55 | Outpatient (REF) | payer BC, SELFPAY | END 2022-12-28 08:56 | disposition home or self-care (01) | LOC: HO.MAMMO 08:55 | PROVIDERS: PCP Internal Medicine; Visit Provider Internal Medicine | DX: Z12.31 Encounter for screening mammogram for malignant neoplasm of breast (principal) | CPT/HCPCS: 77063; 77067 ==

== ENCOUNTER 2023-01-02 11:18 | Outpatient (AMB) | payer BC, SELFPAY ==
[2023-01-02 11:19] VITALS: BP 136/60; PULSE 87; O2SAT 95; BMI 36.2
--- NOTE | 2023-01-02 11:19 | MHC.PC.OV ---
Vital Signs 01/02/23 11:19 Height 5 ft 5 in Weight 217 lb 6 oz BMI 36.2 BP 136/60 Blood Pressure Location Rt brachial Position Sitting Pulse 87 Pulse Source Pulse Oximeter Pulse Oximetry (%) 95 Oxygen Delivery Method Room Air Intake Visit Reasons: Follow Up On Ozempic Allergies Iodinated Contrast Media [IV CONTRAST] Allergy (Severe, Verified 01/02/23 11:20) SEIZURE vancomycin [VANCOMYCIN] Allergy (Severe, Verified 01/02/23 11:20) ITCHING, SOB doxycycline [DOXYCYCLINE] Allergy (Intermediate, Verified 01/02/23 11:20) DIFFICULTY SWALLOWING Penicillins [PENICILLINS] Allergy (Intermediate, Verified 01/02/23 11:20) RASH cephalexin [From KEFLEX] Allergy (Unknown, Verified 01/02/23 11:20) RASH Sulfa (Sulfonamide Antibiotics) [SULFA (SULFONAMIDE ANTIBIOTICS)] Allergy (Unknown, Verified 01/02/23 11:20) UNKNOWN Medication List - Last Reconciled 01/02/23 by Fito Lopez MD allopurinol 1 tab PO DAILY amlodipine-atorvastatin 5-20 mg 1 tab PO DAILY buspirone 5 mg PO .q am PRN 30 days ciprofloxacin HCl 250 mg PO BID furosemide (Lasix) 20 mg PO DAILY [Ladonna sensor As directed] metoprolol tartrate 1 tab PO BID kmlzjxys-rcjvxfqkx-egtlvzwgk 3.5-10,000-10 mg-unit-mg/gram (Neosporin Plus Pain Relief) 1 appl topical DAILY PRN ondansetron 1 tab PO BID PRN semaglutide (Ozempic) 0.25 mg (0.368 mL) subcut QWEEK 90 days triamcinolone acetonide 0.1% appl topical DAILY Tobacco use date assessed: 01/02/23 Fall risk assessment: No Falls in past year Last assessed Fall Risk: 01/02/23 Dental Screening Dental Screen Date: 01/02/23 Did you have a dental visit in the last 12 months?: No Did you have a dental problem in the last 6 months where you did not have access to dental care?: No Was dental information given to patient?: Patient has dentist HPI Follow Up On Ozempic HPI Details Patient is 67-year-old female came in today for a follow-up appointment She was started on Ozempic last visit, she was able to lose 4 lb Her sugar however is fluctuating , she is currently on Ladonna Glucometer and is in need of updated new equipment Patient is feeling depressed as her dog is not well, and is in need of surgery I am starting her on Lexapro 5 mg She also tells me that she used to be on inhaler which was started by the victims advocate clerk/specialist when she started having irritated cough Then she felt better and she stop taking the inhaler but now she has started having cough again. Patient says that she was not feeling well on , 16, 17 of this month with nausea and is in need of note for work which was provided. Patient have nephropathy she has appointment with Nephrology Dr. Martinez coming up. Hypertension: Patient is to continue amlodipine atorvastatin combination tablet for blood pressure and lipid control She is also on buspirone 5 mg once a day which is helping her with anxiety. Peripheral vascular disease responding to Lasix 20 mg every other day. [facility] Medical History GINA (obstructive sleep apnea) Gout On beta kamar at home Chronic headaches Splenic artery aneurysm Meningioma HTN (hypertension) Surgical History Hx laparoscopic cholecystectomy (~2013) History of hysterectomy History of History of colonoscopy (~08/2018) Family History Father Family hx of colon cancer Mother Hx of breast cancer Paternal Grandmother Colon cancer Social History Household Members: None Housing: House Alcohol intake: never Patient Tobacco Use Status: Never used Tobacco e-Cigarette/Vaping Use: Never Used service: No Cognitive needs: No Hearing needs: No Vision needs: No Questionnaire AUDIT C Alcohol Use Questionnaire (AUDIT-C) 1. How often do you have a drink containing alcohol?: Never 3. How often do you have six or more drinks on one occasion?: Never Total Score: 0 Score Reviewed/Action Taken: Yes Review of Systems Const Denies chills and Denies fever(s) ENT Denies epistaxis and Denies nasal discharge Card Denies chest pain Resp Denies chest congestion, Denies cough and Denies hemoptysis GI Denies diarrhea and Denies nausea Skin/Breast Denies rash Neuro Reports no additional complaints Psych Reports no additional complaints Endo Reports no additional complaints Physical exam (Primary Care) Vital Signs: Last Vital Signs Pulse 87 01/02/23 11:19 BP 136/60 01/02/23 11:19 Pulse Ox 95 01/02/23 11:19 Oxygen Delivery Method Room Air 01/02/23 11:19 BMI result Body Mass Index 36.2 Tobacco/Smoking Status: Tobacco use Status Tobacco use date assessed 01/02/23 01/02/23 11:27 Patient Tobacco Use Status Never used Tobacco 01/02/23 11:27 e-Cigarette/Vaping Use Never Used 01/02/23 11:27 Const General: cooperative, comfortable and no acute distress Orientation/consciousness: patient oriented x3 HENMT Head: Yes normocephalic Eyes General: appearance normal, both eyes and all related structures Neck Neck: Yes supple Resp Effort & Inspection: normal respiratory effort, no cough and no stridor Cardio Rhythm: regular rhythm Heart sounds: S1 normal heart sound present and S2 normal heart sound present Skin General skin exam: turgor normal Neuro General: patient oriented x3, tone normal and moves all extremities Extrem Right lower extremity: no edema Left lower extremity: no edema Assessment and Plan Assessment & Plan (1) Diabetes 1.5, managed as type 1: Code(s): E13.9 - Other specified diabetes mellitus without complications (2) Peripheral vascular disease: Code(s): I73.9 - Peripheral vascular disease, unspecified (3) Edema, lower extremity: Code(s): R60.0 - Localized edema (4) Multiple drug allergies: Code(s): Z88.9 - Allergy status to unspecified drugs, medicaments and biological substances (5) Obesity due to excess calories: Code(s): E66.09 - Other obesity due to excess calories Qualifiers: Obesity classification: adult class 2 (BMI 35 - 39.9) Serious obesity comorbidity presence: with serious comorbidity Body mass index: BMI 39.0-39.9 Qualified Code(s): E66.01 - Morbid (severe) obesity due to excess calories; Z68.39 - Body mass index [BMI] 39.0-39.9, adult (6) Chronic nephropathy: Code(s): N03.9 - Chronic nephritic syndrome with unspecified morphologic changes (7) Depression, major, recurrent, mild: Code(s): F33.0 - Major depressive disorder, recurrent, mild Plan Patient is 67-year-old female came in today for a follow-up appointment She was started on Ozempic last visit, she was able to lose 4 lb Her sugar however is fluctuating , she is currently on Ladonna Glucometer and is in need of updated new equipment Patient is feeling depressed as her dog is not well, and is in need of surgery I am starting her on Lexapro 5 mg She also tells me that she used to be on inhaler which was started by the victims advocate clerk/specialist when she started having irritated cough Then she felt better and she stop taking the inhaler but now she has started having cough again. Patient says that she was not feeling well on , 16, 17 of this month with nausea and is in need of note for work which was provided. Patient have nephropathy she has appointment with Nephrology Dr. Martinez coming up. Hypertension: Patient is to continue amlodipine atorvastatin combination tablet for blood pressure and lipid control She is also on buspirone 5 mg once a day which is helping her with anxiety. Peripheral vascular disease responding to Lasix 20 mg every other day. Medications: New fluticasone propion-salmeterol 45-21 mcg/actuation (Advair HFA) 2 puffs inhalation Q12H 30 days 12 grams 0RF albuterol sulfate 90 mcg/actuation (ProAir HFA) 1 inh inhalation QID 30 days PRN 18 grams 0RF shortness of breath or wheezing escitalopram oxalate (Lexapro) 5 mg PO DAILY 30 tabs 0RF Refilled semaglutide (Ozempic) 0.25 mg (0.368 mL) subcut QWEEK 90 days 4.784 mL 2RF E11.9 - Type 2 diabetes mellitus without complications Discontinued ciprofloxacin HCl Discontinued Reason: Doctor's Order 250 mg PO BID 10 tabs 0RF [Ladonna sensor] Discontinued Reason: Ancillary Entered New Order As directed 1 ea 0RF E13.9 - Other specified diabetes mellitus without complications Coding Level of Care Code Est Pt Level 4 (31278) Diagnoses Diabetes 1.5, managed as type 1 E13.9 Peripheral vascular disease I73.9 Edema, lower extremity R60.0 Multiple drug allergies Z88.9 Class 2 severe obesity due to excess calories with serious comorbidity and body mass index (BMI) of 39.0 to 39.9 in adult E66.01; Z68.39 Obesity classification: adult class 2 (BMI 35 - 39.9) Serious obesity comorbidity presence: with serious comorbidity Body mass index: BMI 39.0-39.9 Chronic nephropathy N03.9 Depression, major, recurrent, mild F33.0
== END 2023-01-02 11:48 | disposition home or self-care (01) ==
PROVIDERS: PCP Internal Medicine; Visit Provider Internal Medicine
DX: E13.9 Other specified diabetes mellitus without complications (principal); E66.01 Morbid (severe) obesity due to excess calories; Z68.39 Body mass index [BMI] 39.0-39.9, adult; I73.9 Peripheral vascular disease, unspecified; F33.0 Major depressive disorder, recurrent, mild; Z88.9 Allergy status to unspecified drugs, medicaments and biological substances; R60.0 Localized edema; N03.9 Chronic nephritic syndrome with unspecified morphologic changes
CPT/HCPCS: 99214

== ENCOUNTER 2023-02-08 13:35 | Outpatient (AMB) | payer BC, SELFPAY ==
--- NOTE | 2023-02-08 13:37 | MHC.OFFVIS ---
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 States it started 10 years ago, and getting worse every year. Takes Lasix for swelling but not advised by per Renal doctor, Dr. Patton. States it does help with swelling. Pt has some discoloration and itching w/ Hx of Left LE cellulitis. 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 Complaints include pain over varicosities, swelling of lower extremities, cramping, fatigue, and heaviness of the lower extremities. It has been affecting there daily activities including walking. It is noted more so in right leg. In addition she reports right knee issues as well. She does have a history of diabetes. Last hemoglobin A1c was 5.6. Patient denies any previous venous surgery or injections. She was seen by Dr. Durbin many years ago at [facility] vascular unclear what procedures were done Patient denies any history of DVT/ PE. Patient denies any history of phlebitis. Trial of compression includes - [id number] They now present for vascular evaluation regarding their varicose veins. In addition she has a prior history of a splenic artery aneurysm which had been surveilled at [facility] he approximately every 3 years. [facility] Medical History (Updated 02/09/23 @ 08:43 by Domingo Oscar MD) GINA (obstructive sleep apnea) Gout On beta kamar at home Chronic headaches Splenic artery aneurysm Meningioma HTN (hypertension) Surgical History Hx laparoscopic cholecystectomy (~2013) History of hysterectomy History of History of colonoscopy (~08/2018) Family History Father Family hx of colon cancer Mother Hx of breast cancer Paternal Grandmother Colon cancer Social History Household Members: None Housing: House Alcohol intake: never Patient Tobacco Use Status: Never used Tobacco e-Cigarette/Vaping Use: Never Used service: No Cognitive needs: No Hearing needs: No Vision needs: No Review of Systems Const Reports as per HPI ENT Reports no additional complaints Card Denies chest pain, Denies chest pain at rest and Denies chest pain with activity Resp Denies chest congestion and Denies cough GI Reports no additional complaints Musc Details: pain over varicosities, aching of lower extremities, swelling, cramping, heaviness and tiredness, itching Denies abnormal gait Skin/Breast Reports pruritus and Denies wounds Neuro Reports no additional complaints and Denies abnormal gait Psych Denies no additional complaints Physical Exam Vital Signs: BMI result Body Mass Index 36.1 Const General: cooperative, healthy appearing and comfortable Orientation/consciousness: oriented to person, oriented to place and oriented to time Neck Carotids: no bruits Chest Chest palpation & inspection: normal inspection of the chest and normal palpation of entire chest wall Resp Effort & Inspection: normal respiratory effort and able to speak in complete sentences Cardio Rate: regular rate Heart sounds: S1 normal heart sound present and S2 normal heart sound present Peripheral pulses: Peripheral pulses 2+ throughout GI Inspection: Yes normal to inspection Skin Other: +2 edema, large rope-like varicosities greater than 4 mm CEAP Classification C4 - skin color changes Ep - Etiology Primary As - superficial veins P - reflux General skin exam: dry skin Neuro General: oriented to person, oriented to place and oriented to time Extrem Right lower extremity: full ROM, normal capillary refill and edema Left lower extremity: full ROM, normal capillary refill and edema Psych Mental Status: mental status grossly normal Assessment & Plan Assessment & Plan (1) Varicose veins of right lower extremity with inflammation: Code(s): I83.11 - Varicose veins of right lower extremity with inflammation Plan: In short, the patient has evidence of venous insufficiency. I have discussed the pathophysiology with the patient. In addition I have provided informational material regarding venous disease to the patient. We have discussed conservative measures including compression, elevation, and exercise. I have also provided a handout regarding appropriate use of compression stockings and where to purchase good compression stockings as well. I have taken the liberty of ordering venous insufficiency testing with the patient. They will follow up with me after testing. The patient had an opportunity to ask questions regarding the treatment plan. All questions were answered. Imaging studies, laboratory studies and physical exam results were discussed and reviewed in detail. No major barriers to understanding were identified. The patient expressed understanding and agreement with the above treatment plan. The patient is aware they should contact our office by phone for worsening of the current condition or the appearance of new symptoms. Thank you for allowing me to participate in the vascular care of this patient. If you have any questions or concerns regarding the treatment for the above condition please do not hesitate to contact me. The office telephone contact is [phone]. This note is constructed using voice recognition software. While every effort has been made to ensure accuracy, pivot end polisher errors may have been included. Thank you for allowing me to participate in the care of your patient. Yours sincerely, Domingo Oscar MD, FACS, R.P.V.I. (2) Splenic artery aneurysm: Code(s): I72.8 - Aneurysm of other specified arteries Plan: The patient has a prior history of a splenic artery aneurysm. Unfortunately I do not have access to the images or actual size of this. We will workup her venous disease and also obtain a surveillance CT scan of this at a future date. Of note she does have a contrast allergy and an element of CKD as well. We will continue to monitor this for her as well. Thank you for allowing us to assist in her care. Coding Level of Care Code New Pt Level 4 (79367) Diagnoses Varicose veins of right lower extremity with inflammation I83.11 Splenic artery aneurysm I72.8
[2023-02-08 13:38] VITALS: BMI 36.1
== END 2023-02-08 14:12 | disposition home or self-care (01) ==
PROVIDERS: PCP Internal Medicine; Visit Provider Surgery Vascular Surgery
DX: I83.11 Varicose veins of right lower extremity with inflammation (principal); I72.8 Aneurysm of other specified arteries
CPT/HCPCS: 99204

== ENCOUNTER → 2023-02-08 13:35 | Outpatient (BNVA) | payer BC, SELFPAY | PROVIDERS: PCP Internal Medicine; Visit Provider Surgery Vascular Surgery ==

== ENCOUNTER 2023-02-20 12:06 | Outpatient (AMB) | payer BC, SELFPAY ==
[2023-02-20 12:12] VITALS: BP 118/70; PULSE 90; BMI 36.0
--- NOTE | 2023-02-20 12:12 | HO.NEPHOV ---
HPI HPI Comments History of Present Illness Details I had the privilege of seeing Belgica in the office in follow-up for chronic kidney disease and hypertension. Her blood sugars had not been well controlled lately. She had developed cellulitis of her lower extremities and had seen a physician in [place]. She was given antibiotics and was prescribed diuretics at that time. She takes her Lasix only as needed basis. She continues to have some erythema over her rocha bone on both sides. She continues to have a sacroiliac pain on the right side. 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 Her last serum creatinine was 1.3. In the past her her renal ultrasound showed cortical thinning on the left. She has a diagnosis of obstructive sleep apnea and does not use CPAP. She takes a nonsteroidal anti-inflammatory medications as needed basis. She denies any urinary symptoms, chest pain, dizziness. She has been struggling with her weight and has been on Ozempic . She is currently not taking Trulicity. She has not had any recent renal function blood work tested. She gets headache and has history of meningioma. She is looking to see a new neurologist here in [place]. [facility] Medical History (Updated 02/20/23 @ 12:44 by Taqueria Hook MD) GINA (obstructive sleep apnea) Gout On beta kamar at home Chronic headaches Splenic artery aneurysm Meningioma HTN (hypertension) Surgical History Hx laparoscopic cholecystectomy (~2013) History of hysterectomy History of History of colonoscopy (~08/2018) Family History Father Family hx of colon cancer Mother Hx of breast cancer Paternal Grandmother Colon cancer Social History Household Members: None Housing: House Alcohol intake: never Patient Tobacco Use Status: Never used Tobacco e-Cigarette/Vaping Use: Never Used service: No Cognitive needs: No Hearing needs: No Vision needs: No Vital Signs 02/20/23 12:12 Height 5 ft 5 in Weight 216 lb 4 oz BMI 36.0 BP 118/70 Blood Pressure Location Rt brachial Position Sitting Pulse 90 Pulse Source Pulse Oximeter Assessment & Plan Assessment & Plan (1) HTN (hypertension): Code(s): I10 - Essential (primary) hypertension Plan Belgica has CKD most likely due to vascular disease. She is diabetic and hypertensive. She is not known to have significant proteinuria.She likely has mild renal artery stenosis on the left given cortical thinning on that side. Her volume status is optimal. She takes Lasix as needed basis. Her serum creatinine had been stable. I will consider doing a split function study of her kidney in the future. She can continue her current medications for now. She is on ARB. She will be a candidate for Jardiance or Farxiga. Blood work ordered for follow-up. All questions answered. She needs to lose weight. Time spend for documentation, data retrieval and patient encounter includes 27 minutes. Orders: Orders Creatinine Today I10 - Essential (primary) hypertension Electrolytes Today I10 - Essential (primary) hypertension Blood Urea Nitrogen Today I10 - Essential (primary) hypertension Calcium Today I10 - Essential (primary) hypertension Coding Level of Care Code Est Pt Level 3 (29026) Diagnoses HTN (hypertension) I10
== END 2023-02-20 13:45 | disposition home or self-care (01) ==
PROVIDERS: PCP Internal Medicine; Visit Provider Internal Medicine Nephrology
DX: I10 Essential (primary) hypertension (principal)
CPT/HCPCS: 99213

== ENCOUNTER → 2023-02-20 12:06 | Outpatient (BNVA) | payer BC, SELFPAY | PROVIDERS: PCP Internal Medicine; Visit Provider Internal Medicine Nephrology ==

== ENCOUNTER 2023-02-28 14:38 | Outpatient (REF) | payer BC, SELFPAY ==
[2023-02-28 15:33] LABS: Anion Gap 9 (12-20); Blood Urea Nitrogen 28 mg/dL (9-16); Calcium 9.7 mg/dL (8.4-10.2); Carbon Dioxide 24 mmol/L (22-29); Chloride 113 mmol/L (96-108); Estimated Glomerular Filt Rate 39; Potassium 4.3 mmol/L (3.3-5.1); Sodium 142 mmol/L (135-145)
== END 2023-02-28 14:39 | disposition home or self-care (01) ==
LOC: HO.LAB 14:38
PROVIDERS: Visit Provider Internal Medicine Nephrology
DX: I10 Essential (primary) hypertension (principal)
CPT/HCPCS: 36415; 80051; 82310; 82565; 84520

== ENCOUNTER 2023-06-19 12:26 | Outpatient (REF) | payer BC, SELFPAY ==
[2023-06-19 16:07] LABS: MANUAL DIFF FLAG NO
[2023-06-19 16:21] LABS: Basophils Absolute Auto 0.1 X10*3/uL (0.0-0.2); Basophils Percent Auto 0.8 % (0-2); Eosinophils Absolute Auto 0.2 X10*3/uL (0.0-0.4); Eosinophils Percent Auto 2.1 % (0-4); Hemoglobin 15.8 g/dl (12.0-16.0); Imm Gran Abs Auto 0.05 X10*3/uL (0.00-0.03); Imm Gran Pct Auto 0.6 % (0.0-0.4); Lymphocytes Absolute Auto 1.5 X10*3/uL (1.2-4.9); Mean Corpuscular HGB Conc 32.9 g/dl (31.0-35.0); Mean Corpuscular Volume 85.1 fL (80.0-98.0); Mean Platelet Volume 9.2 fL (9.4-12.3); Monocytes Absolute Auto 0.6 X10*3/uL (0.1-1.2); Monocytes Percent Auto 7.2 % (2-11); Neutrophils Percent Auto 71.3 % (45-73); Platelet Count 261 X10*3/uL (160-400); Red Blood Count 5.64 X10*6/uL (4.20-5.50); Red Cell Distribution Width 13.8 % (11.0-16.0); White Blood Count 8.4 X10*3/uL (4.8-10.8)
[2023-06-19 16:58] LABS: Anion Gap 10 (12-20); Blood Urea Nitrogen 29 mg/dL (9-16); Calcium 9.9 mg/dL (8.4-10.2); Carbon Dioxide 27 mmol/L (22-29); Chloride 111 mmol/L (96-108); Estimated Glomerular Filt Rate 45; Iron 74 mcg/dL (30-160); Percent Iron Saturation 26 % (15-50); Sodium 144 mmol/L (135-145); Total Iron Binding Capacity 280 mcg/dL (228-428); Unsaturated Iron Binding 206 ug/dL
[2023-06-19 17:14] LABS: Ferritin 58 ng/mL (10-250)
== END 2023-06-19 12:27 | disposition home or self-care (01) ==
LOC: HO.HMGCLDS 12:26
PROVIDERS: PCP Internal Medicine; Visit Provider Internal Medicine Nephrology
DX: I12.9 Hypertensive chronic kidney disease with stage 1 through stage 4 chronic kidney disease, or unspecified chronic kidney disease (principal); N18.30 Chronic kidney disease, stage 3 unspecified
CPT/HCPCS: 36415; 80051; 82310; 82565; 82728; 83540; 84520; 85025

== ENCOUNTER 2023-06-27 15:59 | Outpatient (AMB) | payer BC, SELFPAY ==
--- NOTE | 2023-06-27 16:01 | HO.NEPHOV ---
HPI HPI Comments History of Present Illness Details I had the privilege of seeing Belgica in the office in follow-up for chronic kidney disease and hypertension. Her blood sugars are better. She takes her Lasix only as needed basis. She continues to have some erythema over her rocha bone on both sides. Her last serum creatinine was 1.18. In the past her her renal ultrasound showed cortical thinning on the left. She has a diagnosis of obstructive sleep apnea and does not use CPAP. She takes a nonsteroidal anti-inflammatory medications as needed basis. She denies any urinary symptoms, chest pain, dizziness. She has been struggling with her weight and has been on Ozempic . [facility] Medical History (Updated 06/27/23 @ 16:31 by Taqueria Hook MD) GINA (obstructive sleep apnea) Gout On beta kamar at home Chronic headaches Splenic artery aneurysm Meningioma HTN (hypertension) Surgical History Hx laparoscopic cholecystectomy (~2013) History of hysterectomy History of History of colonoscopy (~08/2018) Family History Father Family hx of colon cancer Mother Hx of breast cancer Paternal Grandmother Colon cancer Social History Household Members: None Housing: House Alcohol intake: never Patient Tobacco Use Status: Never used Tobacco e-Cigarette/Vaping Use: Never Used service: No Cognitive needs: No Hearing needs: No Vision needs: No Vital Signs 06/27/23 16:02 Height 5 ft 5 in Weight 214 lb 4 oz BMI 35.6 BP 100/70 Blood Pressure Location Rt brachial Position Sitting Pulse 81 Pulse Source Pulse Oximeter Pulse Oximetry (%) 97 Oxygen Delivery Method Room Air Physical Exam Vital Signs: Last Vital Signs Pulse 81 06/27/23 16:02 BP 100/70 06/27/23 16:02 Pulse Ox 97 06/27/23 16:02 Oxygen Delivery Method Room Air 06/27/23 16:02 BMI result Body Mass Index 35.6 Const General: comfortable and no acute distress Orientation/consciousness: patient oriented x3 HEENT Head: Yes normocephalic Mouth: Normal oral and palatal mucosa present Eyes EOM: EOMs intact bilaterally Neck Neck: Yes supple Resp Auscultation: clear to auscultation bilaterally Cardio Jugular venous distension: no JVD Rate: regular rate GI Palpation (GI): Soft to palpation Auscultation: normal bowel sounds General: Yes no CVA tenderness Back/Spine/Pelvis Back: no CVA tenderness Skin General skin exam: no rashes or lesions noted Neuro General: patient oriented x3 and moves all extremities Extrem General: Yes no pedal edema Assessment & Plan Assessment & Plan (1) CKD (chronic kidney disease) stage 3, GFR 30-59 ml/min: Code(s): N18.30 - Chronic kidney disease, stage 3 unspecified Qualifiers: Chronic kidney disease stage 3 subtype: stage 3a (GFR 45-59) Qualified Code(s): N18.31 - Chronic kidney disease, stage 3a (2) HTN (hypertension): Code(s): I10 - Essential (primary) hypertension Qualifiers: Hypertension type: primary hypertension Qualified Code(s): I10 - Essential (primary) hypertension Plan Belgica has CKD most likely due to vascular disease. She is diabetic and hypertensive. She is not known to have significant proteinuria.She likely has mild renal artery stenosis on the left given cortical thinning on that side. Her volume status is optimal. She takes Lasix as needed basis. Her serum creatinine had been stable. I will consider doing a split function study of her kidney in the future. She can continue her current medications for now. She is on ARB. She needs to lose weight. Blood work ordered for follow-up. All questions answered. Orders: Orders Electrolytes Today I10 - Essential (primary) hypertension, N18.30 - Chronic kidney disease, stage 3 unspecified Protein Creatinine Ratio, Ur Today I10 - Essential (primary) hypertension, N18.30 - Chronic kidney disease, stage 3 unspecified Creatinine Today I10 - Essential (primary) hypertension, N18.30 - Chronic kidney disease, stage 3 unspecified Blood Urea Nitrogen Today I10 - Essential (primary) hypertension, N18.30 - Chronic kidney disease, stage 3 unspecified Coding Level of Care Code Est Pt Level 3 (22224) Diagnoses Stage 3a chronic kidney disease N18.31 Chronic kidney disease stage 3 subtype: stage 3a (GFR 45-59) Primary hypertension I10 Hypertension type: primary hypertension Results Reviewed Nephrology Results: Hgb 15.8 g/dl (12.0-16.0) 06/19/23 WBC 8.4 X10*3/uL (4.8-10.8) 06/19/23 Plt Count 261 X10*3/uL (160-400) 06/19/23 Sodium 144 mmol/L (135-145) 06/19/23 Potassium 4.0 mmol/L (3.3-5.1) 06/19/23 Chloride 111 mmol/L (96-108) H 06/19/23 Carbon Dioxide 27 mmol/L (22-29) 06/19/23 BUN 29 mg/dL (9-16) H 06/19/23 Creatinine 1.18 mg/dL (0.5-1.4) 06/19/23 Calcium 9.9 mg/dL (8.4-10.2) 06/19/23
[2023-06-27 16:02] VITALS: BP 100/70; PULSE 81; O2SAT 97; BMI 35.6
== END 2023-06-27 16:53 | disposition home or self-care (01) ==
PROVIDERS: PCP Internal Medicine; Visit Provider Internal Medicine Nephrology
DX: N18.31 Chronic kidney disease, stage 3a (principal); I10 Essential (primary) hypertension
CPT/HCPCS: 99213

== ENCOUNTER → 2023-06-27 15:59 | Outpatient (BNVA) | payer BC, SELFPAY | PROVIDERS: PCP Internal Medicine; Visit Provider Internal Medicine Nephrology ==

== ENCOUNTER 2024-01-11 12:20 | Emergency (ER) | payer BC, SELFPAY ==
--- NOTE | ~2024-01-11 | XR_ITS ---
EXAMINATION: XR CHEST CLINICAL INFORMATION: [September COMPARISON: September 14, 2022 TECHNIQUE: 2 views of the chest were obtained. FINDINGS: No significant abnormality is noted involving the heart, lungs, mediastinum, bony thorax or soft tissues. XR/XR chest 2V IMPRESSION: Unremarkable examination. No interval change Electronically signed by: Richi Brunson MD 01/11/2024 03:07 PM EDT RP
[2024-01-11 12:34] VITALS: BP 134/80; PULSE 80; O2SAT 95
[2024-01-11 12:37] VITALS: BP 106/61; PULSE 72; RESP 20; TEMP 36.6; O2SAT 98; BMI 33.3
--- NOTE | 2024-01-11 12:37 | ED_ITS ---
HPI - URI/Sore Throat General Chief Complaint: General Medical Stated Complaint: COUGH,PHLEGM,FATIGUE PER EMS Related Data Home Medications ?Medication ?Instructions ?Recorded ?Confirmed metoprolol tartrate 50 mg tablet 1 tab PO BID 03/16/20 01/02/23 ondansetron 4 mg disintegrating 1 tab PO BID PRN nausea/vomiting 03/16/20 01/02/23 tablet triamcinolone acetonide 0.1 % appl topical DAILY 03/16/20 01/02/23 topical cream [id number] 3.5 1 appl topical DAILY PRN 11/29/22 01/02/23 mg-10,000 unit-10 mg/gram top cream (Neosporin Plus Pain Relief) amlodipine 10 mg-olmesartan 20 mg 1 tab PO DAILY 02/20/23 tablet Previous Rx's ?Medication ?Instructions ?Recorded buspirone 5 mg tablet 5 mg PO .q am PRN anxiety 30 days 11/29/22 #30 tabs albuterol sulfate 90 mcg/actuation 1 inh inhalation QID PRN shortness 01/02/23 aerosol inhaler (ProAir HFA) of breath or wheezing 30 days #18 grams blood sugar diagnostic (OneTouch #200 ea 01/15/23 Verio test strips) blood-glucose meter (OneTouch #1 ea 01/15/23 Verio Flex Meter) lancets 33 gauge (OneTouch Delica #200 ea 01/15/23 Plus Lancet) semaglutide 0.25 mg or 0.5 mg (2 0.5 mg (0.736 mL) subcut QWEEK 90 03/14/23 mg/3 mL) subcutaneous pen injector days #9.568 mL (Ozempic) blood-glucose sensor (FreeStyle #6 ea 06/13/23 Ladonna 3 Sensor device) furosemide 20 mg tablet (Lasix) 20 mg PO DAILY Leg swelling #30 08/03/23 tabs benzonatate 200 mg capsule 200 mg PO BID-TID PRN cough #30 01/12/24 caps Allergies Allergy/AdvReac Type Severity Reaction Status Date / Time Iodinated Contrast Media Allergy Severe SEIZURE Verified 01/12/24 13:07 [IV CONTRAST] vancomycin [VANCOMYCIN] Allergy Severe ITCHING, Verified 01/12/24 13:07 SOB doxycycline [DOXYCYCLINE] Allergy Intermediate DIFFICULTY Verified 01/12/24 13:07 SWALLOWING Penicillins [PENICILLINS] Allergy Intermediate RASH Verified 01/12/24 13:07 cephalexin [From KEFLEX] Allergy Unknown RASH Verified 01/12/24 13:07 Sulfa (Sulfonamide Allergy Unknown UNKNOWN Verified 01/12/24 13:07 Antibiotics) [SULFA (SULFONAMIDE ANTIBIOTICS)] [facility] Past Medical History Medical History GINA (obstructive sleep apnea) Gout On beta kamar at home Chronic headaches Splenic artery aneurysm Meningioma HTN (hypertension) Surgical History Hx laparoscopic cholecystectomy (~2013) History of hysterectomy History of History of colonoscopy (~08/2018) Family History Family History Father Family hx of colon cancer Mother Hx of breast cancer Paternal Grandmother Colon cancer Social History Social History Household Members: None Housing: House Alcohol intake: never Patient Tobacco Use Status: Never used Tobacco e-Cigarette/Vaping Use: Never Used service: No Cognitive needs: No Hearing needs: No Vision needs: No Physical Exam 2 Vital Signs: Vital Signs: Last Vital Signs Temp 97.8 F 01/11/24 12:37 Pulse 72 01/11/24 12:37 Resp 20 01/11/24 12:37 BP 106/61 01/11/24 12:37 Pulse Ox 98 01/11/24 12:37 O2 Del Method Room Air 01/11/24 12:37 BMI result Body Mass Index 33.3 Course Course Course Narrative: This is a Rapid Medical Exam performed in triage by Morenita Barba PA-C. Full HPI, ROS and PE to be performed by primary ED provider. 68 yo F with a PMH of HTN, CKD, DM, COVID-19 + on Sunday presenting to the ED c/o lightheadedness and weakness. Patient felt faint this morning. Broke out in a sweat. Is feeling weak. Endorses intermittent cough, nausea. Took blood pressure medication last night. Denies SOB, chest pain. Patient is on Ozempic, but held last dose since she was feeling weak. PE: BP 106/61, lungs clear, talking in complete sentences, abdomen soft Plan: labs, CXR, UA Medical Decision Making Lab Data 01/11/24 13:00 01/11/24 13:00 Labs: Lab Results 01/11/24 Range/Units 13:00 WBC 6.5 (4.8-10.8) X10*3/uL RBC 5.20 (4.20-5.50) X10*6/uL Hgb 15.0 (12.0-16.0) g/dl Hct 44.3 (37.0-47.0) % MCV 85.2 (80.0-98.0) fL MCH 28.8 (27.0-33.0) pg MCHC 33.9 (31.0-35.0) g/dl RDW 13.3 (11.0-16.0) % Plt Count 159 L D (160-400) X10*3/uL MPV 9.2 L (9.4-12.3) fL Immature Gran % (Auto) 0.6 H (0.0-0.4) % Neut % (Auto) 72.6 (45-73) % Lymph % (Auto) 17.8 L (20-40) % Hemphill % (Auto) 7.2 (2-11) % Eos % (Auto) 1.5 (0-4) % Baso % (Auto) 0.3 (0-2) % Lymph # (Auto) 1.2 (1.2-4.9) X10*3/uL Hemphill # (Auto) 0.5 (0.1-1.2) X10*3/uL Eos # (Auto) 0.1 (0.0-0.4) X10*3/uL Baso # (Auto) 0.0 (0.0-0.2) X10*3/uL Abs Immat Gran (auto) 0.04 H (0.00-0.03) X10*3/uL Absolute Neuts (auto) 4.7 (2.0-8.3) x10*3/uL Absolute Nucleated RBC 0.000 (0.0-0.012) X10*3/uL Nucleated RBC % (auto) 0.0 (0.0-0.2) /100WBC Smear Tech's Comments VERIFIED Sodium 145 (135-145) mmol/L Potassium 4.0 (3.3-5.1) mmol/L Chloride 113 H (96-108) mmol/L Carbon Dioxide 23 (22-29) mmol/L Anion Gap 13 (12-20) BUN 30 H (9-16) mg/dL Creatinine 1.26 (0.5-1.4) mg/dL Estim Creat Clear Calc 45.2 Estimated GFR 42 Random Glucose 141 H (60-115) mg/dL Calcium 9.4 (8.4-10.2) mg/dL Magnesium 1.9 (1.6-2.6) mg/dL Total Bilirubin 0.5 (0.0-1.0) mg/dL Direct Bilirubin 0.1 (0.0-0.5) mg/dL AST 19 (5-31) U/L ALT 26 (0-31) U/L Alkaline Phosphatase 62 (39-117) U/L Troponin I High Sens < 2.7 (<3.5-17.0) ng/L Total Protein 6.0 L (6.5-8.0) g/dL Albumin 3.5 (3.5-5.0) g/dL Discharge Plan Discharge Clinical Impression: Weakness Patient Disposition: Left W/O Completing Treatment Prescriptions: No Action (DME) blood-glucose meter [OneTouch Verio Flex meter] [facility] See Rx Instructions .Route Qty: 1 0RF Rx Instructions: Use to test blood sugars twice per day (DME) OneTouch Verio test strips Strip See Rx Instructions .Route Qty: 200 1RF Rx Instructions: Use to test blood sugar twice per day (DME) lancets [OneTouch Delica Plus Lancet] 33 gauge [facility] See Rx Instructions .Route Qty: 200 1RF Rx Instructions: Use to test blood sugar twice per day Ozempic 0.25 mg or 0.5 mg (2 mg/3 mL) pen injector 0.5 mg subcut QWEEK 90 Days Qty: 9.568 2RF (DME) FreeStyle Ladonna 3 Sensor Device See Rx Instructions .Route Qty: 6 1RF Rx Instructions: Use for continuous blood sugar monitoring furosemide [Lasix] 20 mg tablet 20 mg PO DAILY Qty: 30 0RF triamcinolone acetonide 0.1 % cream topical DAILY metoprolol tartrate 50 mg tablet 1 tab PO BID ondansetron 4 mg tablet,disintegrating 1 tab PO BID PRN (Reason: nausea/vomiting) Neosporin Plus Pain Relief 3.5-10,000-10 mg-unit-mg/gram cream 1 appl topical DAILY PRN buspirone 5 mg tablet 5 mg PO .q am PRN (Reason: anxiety) 30 Days Qty: 30 0RF albuterol sulfate [ProAir HFA] 90 mcg/actuation HFA aerosol inhaler 1 inh inhalation QID PRN (Reason: shortness of breath or wheezing) 30 Days Qty: 18 0RF amlodipine-olmesartan 10-20 mg tablet 1 tab PO DAILY benzonatate 200 mg capsule 200 mg PO BID-TID PRN (Reason: cough) Qty: 30 0RF Discharge Date/Time: 01/11/24 15:50
--- NOTE | 2024-01-11 12:41 | ECG_ITS ---
Test Reason : fatigue Blood Pressure : / mmHG Vent. Rate : 084 BPM Atrial Rate : 084 BPM P-R Int : 142 ms QRS Dur : 094 ms QT Int : 380 ms P-R-T Axes : 029 063 025 degrees QTc Int : 449 ms Sinus rhythm with occasional Premature ventricular complexes and Premature atrial complexes Otherwise normal ECG When compared with ECG of 14-OCT-2022 14:16, Premature ventricular complexes are now Present Premature atrial complexes are now Present Referred By: Morenita Barba Electronically Signed By:LUIZ DEVI
[2024-01-11 13:09] LABS: Basophils Percent Auto 0.3 % (0-2); Eosinophils Absolute Auto 0.1 X10*3/uL (0.0-0.4); Eosinophils Percent Auto 1.5 % (0-4); Hematocrit 44.3 % (37.0-47.0); Imm Gran Abs Auto 0.04 X10*3/uL (0.00-0.03); Imm Gran Pct Auto 0.6 % (0.0-0.4); Lymphocytes Absolute Auto 1.2 X10*3/uL (1.2-4.9); Lymphocytes Percent Auto 17.8 % (20-40); MANUAL DIFF FLAG SCAN; Mean Corpuscular HGB Conc 33.9 g/dl (31.0-35.0); Mean Corpuscular Hemoglobin 28.8 pg (27.0-33.0); Mean Corpuscular Volume 85.2 fL (80.0-98.0); Monocytes Absolute Auto 0.5 X10*3/uL (0.1-1.2); Monocytes Percent Auto 7.2 % (2-11); Neutrophils Absolute Auto 4.7 x10*3/uL (2.0-8.3); Neutrophils Percent Auto 72.6 % (45-73); PLT CLUMP 1; Red Cell Distribution Width 13.3 % (11.0-16.0); SCAN SMEAR FLAG 1
[2024-01-11 13:28] LABS: Mean Platelet Volume 9.2 fL (9.4-12.3); Platelet Count 159 X10*3/uL (160-400); SLIDE REVIEW VERIFIED; White Blood Count 6.5 X10*3/uL (4.8-10.8)
[2024-01-11 13:30] LABS: Alanine Aminotransferase 26 U/L (0-31); Albumin Level 3.5 g/dL (3.5-5.0); Alkaline Phosphatase 62 U/L (39-117); Anion Gap 13 (12-20); Aspartate Amino Transferase 19 U/L (5-31); Bilirubin Direct 0.1 mg/dL (0.0-0.5); Bilirubin Total 0.5 mg/dL (0.0-1.0); Blood Urea Nitrogen 30 mg/dL (9-16); Calcium 9.4 mg/dL (8.4-10.2); Carbon Dioxide 23 mmol/L (22-29); Chloride 113 mmol/L (96-108); Creatinine Clr Calc Pharmacy 45.2; Estimated Glomerular Filt Rate 42; Glucose Random 141 mg/dL (60-115); Magnesium 1.9 mg/dL (1.6-2.6); Sodium 145 mmol/L (135-145)
[2024-01-11 13:39] LABS: Troponin-I High Sensitivity < 2.7 ng/L (<3.5-17.0)
== END 2024-01-11 15:50 | disposition left against medical advice (07) ==
PROVIDERS: Physician Assistant; Emergency Provider Emergency Medicine; PCP Internal Medicine
DX: R53.1 Weakness (principal); R42 Dizziness and giddiness; R05.9 Cough, unspecified; R53.83 Other fatigue; E11.22 Type 2 diabetes mellitus with diabetic chronic kidney disease; I12.9 Hypertensive chronic kidney disease with stage 1 through stage 4 chronic kidney disease, or unspecified chronic kidney disease; N18.9 Chronic kidney disease, unspecified; Z79.899 Other long term (current) drug therapy
CPT/HCPCS: 36415; 71046; 80048; 80076; 83735; 84484; 85025; 93005; 99283

== ENCOUNTER → 2024-01-12 11:16 | Outpatient (BNVA) | payer BC, SELFPAY | PROVIDERS: PCP Internal Medicine | DX: R42 Dizziness and giddiness (principal); E11.9 Type 2 diabetes mellitus without complications | CPT/HCPCS: 82948 ==

== ENCOUNTER → 2024-01-12 11:16 | Outpatient (AMB) | payer BC, SELFPAY ==
[2024-01-12 13:06] VITALS: BP 120/70; PULSE 88; TEMP 36.4; O2SAT 99
--- NOTE | 2024-01-12 13:06 | AM.OFFWIN_ITS ---
Intake Vital Signs 01/12/24 13:06 Height 5 ft 4 in BP 120/70 Blood Pressure Location Lt brachial Position Sitting Pulse 88 Pulse Source Pulse Oximeter Temp 97.5 F Temp Source Oral Pulse Oximetry (%) 99 Oxygen Delivery Method Room Air Intake Visit Reasons: EP COVID + Intake Note: Pt is here today tested positive COVID sunday and been coughing. [place] [facility] [place] Patient Tobacco Use Status: Never used Tobacco Allergies Iodinated Contrast Media [IV CONTRAST] Allergy (Severe, Verified 01/12/24 13:07) SEIZURE vancomycin [VANCOMYCIN] Allergy (Severe, Verified 01/12/24 13:07) ITCHING, SOB doxycycline [DOXYCYCLINE] Allergy (Intermediate, Verified 01/12/24 13:07) DIFFICULTY SWALLOWING Penicillins [PENICILLINS] Allergy (Intermediate, Verified 01/12/24 13:07) RASH cephalexin [From KEFLEX] Allergy (Unknown, Verified 01/12/24 13:07) RASH Sulfa (Sulfonamide Antibiotics) [SULFA (SULFONAMIDE ANTIBIOTICS)] Allergy (Unknown, Verified 01/12/24 13:07) UNKNOWN HPI EP COVID + HPI0 Details Patient is a 68-year-old female with a history of hypertension, diabetes, chronic kidney disease, peripheral vascular disease, and lower extremity edema, who comes to the walk-in clinic complaining of cough, fatigue, dizziness/lightheadedness, and weakness almost a week after symptom onset with COVID 6 days ago. She reports that she had a dizzy spell yesterday where she felt lightheaded and got sweaty and weak. She went to the emergency department and had some initial testing but left before she was fully evaluated. She reports that she lives at home and has had to continue housework, although she has not slower and more carefully than usual. She reports no friends family or other support. She reports her oral intake has been lots of popsicles and she has not been able to check her blood sugar as she does not have diabetic supplies at home, as they are waiting for her at the pharmacy. She had another dizzy spell today, and comes to the walk-in clinic hoping to get the results of her tests from yesterday. Along with the lightheadedness episodes, she has a persistent cough and fatigue, but denies generalized weakness, shortness of breath, chest pain or discomfort, palpitations, altered mental status, nausea vomiting or diarrhea or other significant associated symptoms. She had been successfully losing weight with Ozempic, but stopped taking that at the onset of COVID. She reports that she is not eligible for antivirals and does not want Paxlovid. [facility] Medical History GINA (obstructive sleep apnea) Gout On beta kamar at home Chronic headaches Splenic artery aneurysm Meningioma HTN (hypertension) Surgical History Hx laparoscopic cholecystectomy (~2013) History of hysterectomy History of History of colonoscopy (~08/2018) Family History Father Family hx of colon cancer Mother Hx of breast cancer Paternal Grandmother Colon cancer Social History Household Members: None Housing: House Alcohol intake: never Patient Tobacco Use Status: Never used Tobacco e-Cigarette/Vaping Use: Never Used service: No Cognitive needs: No Hearing needs: No Vision needs: No Review of Systems Const All systems reviewed & are unremarkable except as noted in HPI and below Physical Exam Vital Signs: Last Vital Signs Temp 97.5 F 01/12/24 13:06 Pulse 88 01/12/24 13:06 BP 120/70 01/12/24 13:06 Pulse Ox 99 01/12/24 13:06 Oxygen Delivery Method Room Air 01/12/24 13:06 Const General: cooperative, healthy appearing, comfortable, no acute distress, alert, awake and Physically active; No anxious, diaphoretic, ill appearing, intoxicated appearing, poor hygiene or tired appearing Nutritional Appearance: average body habitus Orientation/consciousness: oriented to person Limitations: no limitations HEENT Head: Yes normal to inspection, Yes normocephalic and Yes atraumatic Ears: hearing grossly normal bilaterally, external ears normal, TM's normal bilaterally and EAC's normal General nose exam: Normal external nose present, Normal nares present, No nasal polyps present, Normal nasal mucous membranes and turbinates present, Normal septum present and No nasal discharge present Face and sinus: Yes normal facial exam, Yes sinuses nontender and Yes face symmetric Mouth: Normal oral and palatal mucosa present, lip normal and tongue normal Throat: Yes posterior oropharynx normal, Yes abnormal tonsil (mildly erythematous bilaterally), No peritonsillar mass, No postnasal drainage, No uvular edema and No cobblestoning Eyes General: appearance normal, both eyes and all related structures Neck Neck: Yes normal visual inspection, Yes no lymphadenopathy, Yes trachea midline, Yes supple and No anterior neck swelling Chest Chest palpation & inspection: normal palpation of entire chest wall Resp Effort & Inspection: normal respiratory effort, able to speak in complete sentences, no audible wheezes, Actively coughing (Occasional dry cough), no grunting, not labored, no nasal flaring, no retractions and symmetric chest movement Auscultation: clear to auscultation bilaterally, no crackles, no rales, no rhonchi, no wheezes, lung sounds not diminished and No rub present Cardio Rate: regular rate Rhythm: regular rhythm Skin Other: Good color, warm and dry Neuro General: oriented to person Psych Appearance: grossly normal Mental Status: mental status grossly normal Results AMB Random Glucose (hemocue) AMB Random Glucose (hemocue) 117 mg/dL Last Edit by Hannah Epps CMA on 01/12/24 14:42 Results Reviewed Results Reviewed: Laboratory Last Values Random Glu (Clinic) 117 mg/dL 01/12/24 14:40 Assessment & Plan Assessment & Plan (1) Dizziness: Code(s): R42 - Dizziness and giddiness Plan Patient is a 68-year-old female with multiple comorbidities, who comes to the walk-in clinic almost a week after symptom onset of COVID. She had initial workup done at the emergency department yesterday after having an episode of dizziness/lightheadedness, and her chest x-ray was normal, although she did have 12 lead EKG showing normal sinus rhythm and new PACs and PVCs from prior. Her troponin was low, she had some baseline abnormal labs, with her BUN at 30 and her random sugar was okay. She had another episode of lightheadedness this morning, which she states occurred after she bent over to do laundry. Overall on exam she is stable, including vital signs and exam which is really only remarkable for an occasional cough. No apparent orthostatic hypotension. We discussed that it is not safe for her to be at home by herself with these dizzy spells, and she reports that she has no one at all to be with her. I told her that she her safest option would be to consider going back to the emergency department if her symptoms reoccur or worsen. She reports that she will monitor her symptoms and will go back to the emergency room as needed. She does have an appointment on Sunday for medical evaluation, and in about a week and a half she has follow-up with her kidney specialist. In the meantime, I wrote her a course of benzonatate for the cough. Orders: Orders AMB Random Glucose (hemocue) Today E11.9 - Type 2 diabetes mellitus without complications Medications: New benzonatate 200 mg PO BID-TID PRN 30 caps 0RF cough Coding Level of Care Code Est Pt Level 4 (83503) Diagnoses Dizziness R42
== END ==
PROVIDERS: PCP Internal Medicine; Visit Provider Physician Assistant Medical
DX: E11.9 Type 2 diabetes mellitus without complications (principal); R42 Dizziness and giddiness

== ENCOUNTER 2024-01-16 14:13 | Outpatient (REF) | payer BC, SELFPAY ==
[2024-01-16 16:20] LABS: Anion Gap 12 (12-20); Blood Urea Nitrogen 21 mg/dL (9-16); Carbon Dioxide 25 mmol/L (22-29); Chloride 113 mmol/L (96-108); Estimated Glomerular Filt Rate 50; Potassium 4.2 mmol/L (3.3-5.1); Sodium 146 mmol/L (135-145)
[2024-01-16 17:29] LABS: Creatinine Urine 302.35 mg/dL; Protein/Creatinine Ratio, Ur 0.05 (<0.2); Total Protein Urine Random 16 mg/dL (<12)
== END 2024-01-16 14:14 | disposition home or self-care (01) ==
LOC: HO.HMGCLDS 14:13
PROVIDERS: PCP Internal Medicine; Visit Provider Internal Medicine Nephrology
DX: I12.9 Hypertensive chronic kidney disease with stage 1 through stage 4 chronic kidney disease, or unspecified chronic kidney disease (principal); N18.30 Chronic kidney disease, stage 3 unspecified
CPT/HCPCS: 36415; 80051; 82565; 82570; 84156; 84520

== ENCOUNTER 2024-02-10 19:18 | Emergency (ER) | payer BC, SELFPAY ==
--- NOTE | ~2024-02-10 | CT_ITS ---
EXAMINATION: CT ABDOMEN AND PELVIS WITHOUT CONTRAST CLINICAL INFORMATION: C. difficile colitis. COMPARISON: CT abdomen/pelvis 09/12/2019. TECHNIQUE: Multidetector volumetric imaging was performed from the superior aspect of the liver through the pubic symphysis. Sagittal and coronal reformatted images were obtained on the technologist's workstation. This CT examination was performed using dose optimization techniques as appropriate, variously including the following: *Automated exposure control *Adjustment of mA and/or kV according to patient size (this includes techniques or standardized protocols for targeted exams where dose is matched to indication/reason for exam; i.e. extremities or head) *Use of iterative reconstruction technique DLP: 757 mGy-cm FINDINGS: LUNG BASES: Emphysematous changes are seen with some mild cylindrical bronchiectasis. Bibasilar scarring. LIVER, GALLBLADDER, AND BILIARY TREE: The liver is normal in size and shape but with decreased attenuation consistent with hepatic steatosis. No focal hepatic lesion or biliary ductal dilatation is present. Gallbladder is surgically absent. PANCREAS: Marked fatty replacement of the pancreas. SPLEEN: Mild splenomegaly with the spleen measuring 12.8 cm in greatest transverse dimension. ADRENAL GLANDS: Unremarkable. KIDNEYS AND URETERS: The kidneys are normal in size, shape, and attenuation. No hydronephrosis, hydroureter, or calculi seen. No perinephric stranding. BLADDER: Empty but unremarkable. GASTROINTESTINAL TRACT: The small and large bowel are unremarkable. The appendix is unremarkable. There is no evidence of colitis. ABDOMINAL WALL: No significant hernia is appreciated. LYMPH NODES: No retroperitoneal lymphadenopathy. VASCULAR: There is a rim calcified splenic artery aneurysm measuring 2.5 x 2.3 x 1.9 cm. Previously this measured 2.3 x 2.1 x 1.9 cm. Very minimal atherosclerotic changes are present in the aorta and iliofemoral vessels. There is no evidence of an abdominal aortic aneurysm. PELVIC VISCERA: The uterus appears to be absent. Calcifications are present in the cervical cuff. An abnormal adnexal mass is not seen. Both ovaries appear normal. OSSEOUS STRUCTURES: Degenerative changes are present in the spine most marked at L2-L3. No bony destruction. CT/CT abdomen pelvis wo IV con IMPRESSION: 1. No evidence of colitis. 2. Incidental note made of emphysema, hepatic steatosis, cholecystectomy, fatty replacement of the pancreas, mild splenomegaly and a 2.5 cm rim calcified splenic artery aneurysm slightly increased in size. Some recommend prophylactic embolization when the aneurysm is over 2 cm in size. Fleischner guidelines were followed. Electronically signed by: Cas Riddle MD 02/10/2024 11:45 PM EDT RP
[2024-02-10 19:27] VITALS: BP 115/69; PULSE 89; RESP 18; TEMP 36.3; O2SAT 99; BMI 32.9
--- NOTE | 2024-02-10 19:32 | ED_ITS ---
HPI - Abdominal Pain General Chief Complaint: Nausea/Vomiting/Diarrhea Stated Complaint: dr gee in/c diff Time Seen by Provider: 02/10/24 20:18 Source: patient Mode of arrival: ambulatory Limitations: no limitations Related Data Home Medications ?Medication ?Instructions ?Recorded ?Confirmed metoprolol tartrate 50 mg tablet 1 tab PO BID 03/16/20 01/02/23 ondansetron 4 mg disintegrating 1 tab PO BID PRN nausea/vomiting 03/16/20 01/02/23 tablet triamcinolone acetonide 0.1 % appl topical DAILY 03/16/20 01/02/23 topical cream lffpgrut-ltzmqhgce-tagoexzpy 3.5 1 appl topical DAILY PRN 11/29/22 01/02/23 mg-10,000 unit-10 mg/gram top cream (Neosporin Plus Pain Relief) amlodipine 10 mg-olmesartan 20 mg 1 tab PO DAILY 02/20/23 tablet Previous Rx's ?Medication ?Instructions ?Recorded buspirone 5 mg tablet 5 mg PO .q am PRN anxiety 30 days 11/29/22 #30 tabs albuterol sulfate 90 mcg/actuation 1 inh inhalation QID PRN shortness 01/02/23 aerosol inhaler (ProAir HFA) of breath or wheezing 30 days #18 grams blood sugar diagnostic (OneTouch #200 ea 01/15/23 Verio test strips) blood-glucose meter (OneTouch #1 ea 01/15/23 Verio Flex Meter) lancets 33 gauge (OneTouch Delica #200 ea 01/15/23 Plus Lancet) semaglutide 0.25 mg or 0.5 mg (2 0.5 mg (0.736 mL) subcut QWEEK 90 03/14/23 mg/3 mL) subcutaneous pen injector days #9.568 mL (Ozempic) blood-glucose sensor (FreeStyle #6 ea 06/13/23 Ladonna 3 Sensor device) furosemide 20 mg tablet (Lasix) 20 mg PO DAILY Leg swelling #30 08/03/23 tabs benzonatate 200 mg capsule 200 mg PO BID-TID PRN cough #30 01/12/24 caps Allergies Allergy/AdvReac Type Severity Reaction Status Date / Time Iodinated Contrast Media Allergy Severe SEIZURE Verified 02/10/24 19:30 [IV CONTRAST] vancomycin [VANCOMYCIN] Allergy Severe ITCHING, Verified 02/10/24 19:30 SOB doxycycline [DOXYCYCLINE] Allergy Intermediate DIFFICULTY Verified 02/10/24 19:30 SWALLOWING Penicillins [PENICILLINS] Allergy Intermediate RASH Verified 02/10/24 19:30 cephalexin [From KEFLEX] Allergy Unknown RASH Verified 02/10/24 19:30 Sulfa (Sulfonamide Allergy Unknown UNKNOWN Verified 02/10/24 19:30 Antibiotics) [SULFA (SULFONAMIDE ANTIBIOTICS)] [facility] Past Medical History Medical History GINA (obstructive sleep apnea) Gout On beta kamar at home Chronic headaches Splenic artery aneurysm Meningioma HTN (hypertension) Surgical History Hx laparoscopic cholecystectomy (~2013) History of hysterectomy History of History of colonoscopy (~08/2018) Family History Family History Father Family hx of colon cancer Mother Hx of breast cancer Paternal Grandmother Colon cancer Social History Social History Household Members: None Housing: House Alcohol intake: never Patient Tobacco Use Status: Never used Tobacco e-Cigarette/Vaping Use: Never Used Advance Directives: No Advance Directives Information Provided: No service: No Cognitive needs: No Hearing needs: No Vision needs: No Physical Exam ED Vital Signs: Vital Signs - 24 hr 02/10/24 19:27 Temperature 97.4 F Pulse Rate 89 Respiratory Rate 18 Blood Pressure 115/69 Pulse Oximetry 99 Oxygen Delivery Method Room Air BMI result Body Mass Index 32.9 Course Course Course Narrative: This is a rapid medical exam. Defer additional HPI, ROS, PE to primary provider. 68-year-old female with medical history of chronic kidney disease, hypertension, diabetes,HLD here with 8-9 days of diarrhea, abdominal pain, decreased appetite, weight loss, generalized weakness, low-grade fever at home with recent diagnosis of C diff and E coli. Sent in for further evaluation by primary. VSS Will obtain labs -Isak Fermin [employer] Discharge Plan Discharge Prescriptions: No Action (DME) blood-glucose meter [OneTouch Verio Flex meter] Misc See Rx Instructions .Route Qty: 1 0RF Rx Instructions: Use to test blood sugars twice per day (DME) OneTouch Verio test strips Strip See Rx Instructions .Route Qty: 200 1RF Rx Instructions: Use to test blood sugar twice per day (DME) lancets [OneTouch Delica Plus Lancet] 33 gauge misc See Rx Instructions .Route Qty: 200 1RF Rx Instructions: Use to test blood sugar twice per day Ozempic 0.25 mg or 0.5 mg (2 mg/3 mL) pen injector 0.5 mg subcut QWEEK 90 Days Qty: 9.568 2RF (DME) FreeStyle Ladonna 3 Sensor Device See Rx Instructions .Route Qty: 6 1RF Rx Instructions: Use for continuous blood sugar monitoring furosemide [Lasix] 20 mg tablet 20 mg PO DAILY Qty: 30 0RF triamcinolone acetonide 0.1 % cream topical DAILY metoprolol tartrate 50 mg tablet 1 tab PO BID ondansetron 4 mg tablet,disintegrating 1 tab PO BID PRN (Reason: nausea/vomiting) Neosporin Plus Pain Relief 3.5-10,000-10 mg-unit-mg/gram cream 1 appl topical DAILY PRN buspirone 5 mg tablet 5 mg PO .q am PRN (Reason: anxiety) 30 Days Qty: 30 0RF albuterol sulfate [ProAir HFA] 90 mcg/actuation HFA aerosol inhaler 1 inh inhalation QID PRN (Reason: shortness of breath or wheezing) 30 Days Qty: 18 0RF amlodipine-olmesartan 10-20 mg tablet 1 tab PO DAILY benzonatate 200 mg capsule 200 mg PO BID-TID PRN (Reason: cough) Qty: 30 0RF Print Language: Ghanaian
--- NOTE | 2024-02-10 20:19 | ED.NAVMDI ---
HPI - Nausea/Vomiting/Diarrhea General Chief complaint: Nausea/Vomiting/Diarrhea Stated complaint: dr sent in/c diff Time Seen by Provider: 02/10/24 20:18 Source: patient Mode of arrival: ambulatory Limitations: no limitations History of Present Illness ED Provider: ada OLMSTEAD Narrative: Patient history of hypertension, diabetes been having watery stool with nausea for last 8 days last bowel movement was 2 days ago was seen at PCP office of sent the stool sample for C diff on 02/05/2024 which came out to be positive for C diff and enteropathogenic E coli . Did not eat or drink much in last 2 days does have nausea no vomiting Related Data Home Medications ?Medication ?Instructions ?Recorded ?Confirmed metoprolol tartrate 50 mg tablet 1 tab PO BID 03/16/20 01/02/23 ondansetron 4 mg disintegrating 1 tab PO BID PRN nausea/vomiting 03/16/20 01/02/23 tablet triamcinolone acetonide 0.1 % appl topical DAILY 03/16/20 01/02/23 topical cream undilcbw-xzjsegpoh-vcmypttle 3.5 1 appl topical DAILY PRN 11/29/22 01/02/23 mg-10,000 unit-10 mg/gram top cream (Neosporin Plus Pain Relief) amlodipine 10 mg-olmesartan 20 mg 1 tab PO DAILY 02/20/23 tablet Previous Rx's ?Medication ?Instructions ?Recorded buspirone 5 mg tablet 5 mg PO .q am PRN anxiety 30 days 11/29/22 #30 tabs albuterol sulfate 90 mcg/actuation 1 inh inhalation QID PRN shortness 01/02/23 aerosol inhaler (ProAir HFA) of breath or wheezing 30 days #18 grams blood sugar diagnostic ([employer] SolutionsTouch #200 ea 01/15/23 Verio test strips) blood-glucose meter ([employer] SolutionsTouch #1 ea 01/15/23 Verio Flex Meter) lancets 33 gauge (OneTouch Delica #200 ea 01/15/23 Plus Lancet) semaglutide 0.25 mg or 0.5 mg (2 0.5 mg (0.736 mL) subcut QWEEK 90 03/14/23 mg/3 mL) subcutaneous pen injector days #9.568 mL (Ozempic) blood-glucose sensor (FreeStyle #6 ea 06/13/23 Ladonna 3 Sensor device) furosemide 20 mg tablet (Lasix) 20 mg PO DAILY Leg swelling #30 08/03/23 tabs benzonatate 200 mg capsule 200 mg PO BID-TID PRN cough #30 01/12/24 caps fidaxomicin 200 mg tablet 200 mg PO Q12H 10 days #20 tabs 02/11/24 ondansetron 4 mg disintegrating 4 mg PO Q6-8H PRN nausea and 02/11/24 tablet vomiting #7 tabs Allergies Allergy/AdvReac Type Severity Reaction Status Date / Time Iodinated Contrast Media Allergy Severe SEIZURE Verified 02/10/24 19:30 [IV CONTRAST] vancomycin [VANCOMYCIN] Allergy Severe ITCHING, Verified 02/10/24 19:30 SOB doxycycline [DOXYCYCLINE] Allergy Intermediate DIFFICULTY Verified 02/10/24 19:30 SWALLOWING Penicillins [PENICILLINS] Allergy Intermediate RASH Verified 02/10/24 19:30 cephalexin [From KEFLEX] Allergy Unknown RASH Verified 02/10/24 19:30 Sulfa (Sulfonamide Allergy Unknown UNKNOWN Verified 02/10/24 19:30 Antibiotics) [SULFA (SULFONAMIDE ANTIBIOTICS)] Review of Systems Review of Systems: Yes all other systems are reviewed and are negative [facility] Past Medical History Medical History GINA (obstructive sleep apnea) Gout On beta kamar at home Chronic headaches Splenic artery aneurysm Meningioma HTN (hypertension) Surgical History Hx laparoscopic cholecystectomy (~2013) History of hysterectomy History of History of colonoscopy (~08/2018) Family History Family History Father Family hx of colon cancer Mother Hx of breast cancer Paternal Grandmother Colon cancer Social History Social History Household Members: None Housing: House Alcohol intake: never Patient Tobacco Use Status: Never used Tobacco Smoked in Last 30 Days: No e-Cigarette/Vaping Use: Never Used Use of substances other than those prescribed or required for medical reasons: No Advance Directives: No Advance Directives Information Provided: No service: No Cognitive needs: No Hearing needs: No Vision needs: No Physical Exam Vital Signs: Vital Signs: Last Vital Signs Temp 98 F 02/11/24 00:22 Pulse 71 02/11/24 00:22 Resp 16 02/11/24 00:22 BP 125/66 02/11/24 00:22 Pulse Ox 97 02/11/24 00:22 O2 Del Method Room Air 02/11/24 00:22 BMI result Body Mass Index 32.9 Appearance: Alert. Oriented X3. No acute distress. Eyes: No pallor or icterus ENT: Pharynx normal. Oral Mucosa moist Neck: Normal inspection. Neck supple. CVS: Normal heart rate and rhythm. Pulses normal. Respiratory: No respiratory distress. Equal air entry bilateral, no wheezing/rales/rhonchi Abdomen: Soft and nontender. Bowel sounds are present, no mass palpable, no CVA tenderness Skin: Skin warm and dry. Normal skin color. Normal skin turgor. Neuro: Oriented X 3. No motor deficit. Medications Administered Discontinued Medications Generic Name Dose Route Start Last Admin Trade Name Sixtoq PRN Reason Stop Dose Admin Fidaxomicin 200 mg 02/10/24 20:50 02/10/24 22:05 Fidaxomicin 200 Mg Tablet PO 02/10/24 20:51 200 mg ONCE ONE Administration Sodium Chloride 1,000 mls @ 999 mls/hr 02/10/24 20:28 02/10/24 23:06 Ns IV 02/10/24 21:28 Infused .Q1H1M ONE Infusion Lactated Ringer's 1,000 mls @ 999 mls/hr 02/11/24 00:15 02/11/24 00:43 Lr IV 02/11/24 01:15 999 mls/hr .Q1H1M ANA Administration Ondansetron HCl 4 mg 02/10/24 22:05 02/10/24 22:07 Ondansetron Odt 4 Mg Tab.Rapdis TRANSLINGU 02/10/24 22:06 4 mg ONCE ONE Administration Medical Decision Making Medical Decision Making MDM Narrative: Patient's C diff colitis CT scan negative for any colitis labs are stable slightly elevated creatinine will start on fidaxomicin no bowel movement in the ER Differential Diagnosis Differential Diagnoses: The differential diagnosis associated with the presentation includes Admission/Observation Consideration of admission/observation: Escalation of care including admission/observation considered Lab Data [facility] Lab Attestation statement: I reviewed the patient's lab results. 02/10/24 20:57 02/11/24 00:05 Labs: Lab Results 02/10/24 02/10/24 02/11/24 Range/Units 20:56 20:57 00:05 WBC 14.1 H (4.8-10.8) X10*3/uL RBC 5.55 H (4.20-5.50) X10*6/uL Hgb 16.0 (12.0-16.0) g/dl Hct 46.9 (37.0-47.0) % MCV 84.5 (80.0-98.0) fL MCH 28.8 (27.0-33.0) pg MCHC 34.1 (31.0-35.0) g/dl RDW 13.4 (11.0-16.0) % Plt Count 272 D (160-400) X10*3/uL MPV 8.6 L (9.4-12.3) fL Immature Gran % (Auto) 0.6 H (0.0-0.4) % Neut % (Auto) 77.9 H (45-73) % Lymph % (Auto) 12.6 L (20-40) % [place] % (Auto) 7.2 (2-11) % Eos % (Auto) 1.1 (0-4) % Baso % (Auto) 0.6 (0-2) % Lymph # (Auto) 1.8 (1.2-4.9) X10*3/uL [place] # (Auto) 1.0 (0.1-1.2) X10*3/uL Eos # (Auto) 0.2 (0.0-0.4) X10*3/uL Baso # (Auto) 0.1 (0.0-0.2) X10*3/uL Abs Immat Gran (auto) 0.09 H (0.00-0.03) X10*3/uL Absolute Neuts (auto) 11.0 H (2.0-8.3) x10*3/uL Absolute Nucleated RBC 0.000 (0.0-0.012) X10*3/uL Nucleated RBC % (auto) 0.0 (0.0-0.2) /100WBC Sodium 142 (135-145) mmol/L Potassium 4.1 (3.3-5.1) mmol/L Chloride 112 H (96-108) mmol/L Carbon Dioxide 19 L (22-29) mmol/L Anion Gap 15 (12-20) BUN 37 H (9-16) mg/dL Creatinine 1.48 H (0.5-1.4) mg/dL Estim Creat Clear Calc 38.3 Estimated GFR 35 Random Glucose 101 (60-115) mg/dL Lactic Acid 1.7 (0.5-2.0) mmol/L Calcium 9.7 (8.4-10.2) mg/dL Magnesium 1.6 (1.6-2.6) mg/dL Total Bilirubin 0.9 (0.0-1.0) mg/dL Direct Bilirubin 0.2 (0.0-0.5) mg/dL AST 25 (5-31) U/L ALT 18 (0-31) U/L Alkaline Phosphatase 56 (39-117) U/L Total Protein 5.8 L (6.5-8.0) g/dL Albumin 3.5 (3.5-5.0) g/dL Discharge Plan Discharge Clinical Impression: C. difficile colitis Patient Disposition: Home, Self-Care Instructions: C. Diff (Clostridioides Difficile) Infection (ED) Additional Instructions: Drink plenty of fluids Antibiotic as prescribed Have probiotics/yogurt Report to ER if worsening of symptoms Prescriptions: New fidaxomicin 200 mg tablet 200 mg PO Q12H 10 Days Qty: 20 0RF ondansetron 4 mg tablet,disintegrating 4 mg PO Q6-8H PRN (Reason: nausea and vomiting) Qty: 7 0RF No Action (DME) blood-glucose meter [OneTouch Verio Flex meter] Misc See Rx Instructions .Route Qty: 1 0RF Rx Instructions: Use to test blood sugars twice per day (DME) OneTouch Verio test strips Strip See Rx Instructions .Route Qty: 200 1RF Rx Instructions: Use to test blood sugar twice per day (DME) lancets [OneTouch Delica Plus Lancet] 33 gauge misc See Rx Instructions .Route Qty: 200 1RF Rx Instructions: Use to test blood sugar twice per day Ozempic 0.25 mg or 0.5 mg (2 mg/3 mL) pen injector 0.5 mg subcut QWEEK 90 Days Qty: 9.568 2RF (DME) FreeStyle Ladonna 3 Sensor Device See Rx Instructions .Route Qty: 6 1RF Rx Instructions: Use for continuous blood sugar monitoring furosemide [Lasix] 20 mg tablet 20 mg PO DAILY Qty: 30 0RF triamcinolone acetonide 0.1 % cream topical DAILY metoprolol tartrate 50 mg tablet 1 tab PO BID ondansetron 4 mg tablet,disintegrating 1 tab PO BID PRN (Reason: nausea/vomiting) Neosporin Plus Pain Relief 3.5-10,000-10 mg-unit-mg/gram cream 1 appl topical DAILY PRN buspirone 5 mg tablet 5 mg PO .q am PRN (Reason: anxiety) 30 Days Qty: 30 0RF albuterol sulfate [ProAir HFA] 90 mcg/actuation HFA aerosol inhaler 1 inh inhalation QID PRN (Reason: shortness of breath or wheezing) 30 Days Qty: 18 0RF amlodipine-olmesartan 10-20 mg tablet 1 tab PO DAILY benzonatate 200 mg capsule 200 mg PO BID-TID PRN (Reason: cough) Qty: 30 0RF Print Language: Kazakh
[2024-02-10 20:47] VITALS: BP 116/71; PULSE 79; RESP 16; TEMP 36.7; O2SAT 100
[2024-02-10] MEDS: 0.9 % Sodium Chloride 1,000 ML 999 ML IV (20:59)
[2024-02-10 21:03] LABS: MANUAL DIFF FLAG NO
[2024-02-10 21:04] LABS: Basophils Absolute Auto 0.1 X10*3/uL (0.0-0.2); Basophils Percent Auto 0.6 % (0-2); Eosinophils Absolute Auto 0.2 X10*3/uL (0.0-0.4); Eosinophils Percent Auto 1.1 % (0-4); Hematocrit 46.9 % (37.0-47.0); Imm Gran Abs Auto 0.09 X10*3/uL (0.00-0.03); Imm Gran Pct Auto 0.6 % (0.0-0.4); Lymphocytes Absolute Auto 1.8 X10*3/uL (1.2-4.9); Lymphocytes Percent Auto 12.6 % (20-40); Mean Corpuscular HGB Conc 34.1 g/dl (31.0-35.0); Mean Corpuscular Hemoglobin 28.8 pg (27.0-33.0); Mean Corpuscular Volume 84.5 fL (80.0-98.0); Mean Platelet Volume 8.6 fL (9.4-12.3); Monocytes Percent Auto 7.2 % (2-11); Neutrophils Percent Auto 77.9 % (45-73); Platelet Count 272 X10*3/uL (160-400); Red Blood Count 5.55 X10*6/uL (4.20-5.50); Red Cell Distribution Width 13.4 % (11.0-16.0); White Blood Count 14.1 X10*3/uL (4.8-10.8)
[2024-02-10 21:19] LABS: Lactic Acid 1.7 mmol/L (0.5-2.0)
[2024-02-10] MEDS: Fidaxomicin 200 MG TABLET PO (22:05)
[2024-02-10] MEDS: Ondansetron ODT 4 MG TAB.RAPDIS TRANSLINGU (22:07)
[2024-02-11 00:22] VITALS: BP 125/66; PULSE 71; RESP 16; TEMP 36.6; O2SAT 97
[2024-02-11 00:33] LABS: Alanine Aminotransferase 18 U/L (0-31); Albumin Level 3.5 g/dL (3.5-5.0); Alkaline Phosphatase 56 U/L (39-117); Anion Gap 15 (12-20); Bilirubin Direct 0.2 mg/dL (0.0-0.5); Bilirubin Total 0.9 mg/dL (0.0-1.0); Blood Urea Nitrogen 37 mg/dL (9-16); Calcium 9.7 mg/dL (8.4-10.2); Carbon Dioxide 19 mmol/L (22-29); Chloride 112 mmol/L (96-108); Creatinine Clr Calc Pharmacy 38.3; Estimated Glomerular Filt Rate 35; Glucose Random 101 mg/dL (60-115); Magnesium 1.6 mg/dL (1.6-2.6); Potassium 4.1 mmol/L (3.3-5.1); Sodium 142 mmol/L (135-145); Total Protein 5.8 g/dL (6.5-8.0)
[2024-02-11] MEDS: Lactated Ringers 1,000 ML 999 ML IV (00:43)
[2024-02-11 00:47] LABS: Aspartate Amino Transferase 25 U/L (5-31)
[2024-02-11 02:29] VITALS: BP 115/66; PULSE 76; RESP 16; TEMP 36.8; O2SAT 100
== END 2024-02-11 02:41 | disposition home or self-care (01) ==
PROVIDERS: Nurse Practitioner Family; Emergency Provider Internal Medicine; PCP Internal Medicine
DX: A04.72 Enterocolitis due to Clostridium difficile, not specified as recurrent (principal); R11.2 Nausea with vomiting, unspecified; R10.2 Pelvic and perineal pain; Z79.899 Other long term (current) drug therapy
CPT/HCPCS: 36415; 74176; 80048; 80076; 83605; 83735; 85025; 96361; 96365; 99284; J7120

== ENCOUNTER 2024-02-12 16:24 | Outpatient (AMB) | payer BC, SELFPAY ==
[2024-02-12 16:28] VITALS: BP 102/60; BMI 33.6
--- NOTE | 2024-02-12 16:28 | HO.NEPHOV ---
Vital Signs 02/12/24 16:28 Height 5 ft 4 in Weight 196 lb BMI 33.6 BP 102/60 Blood Pressure Location Lt brachial Position Sitting Intake Visit Reasons: Pt was seen in [facility] on 02/11/24 Clinical Team Manager Required: No Accompanied by: Self / Same As Patient Allergies Iodinated Contrast Media [IV CONTRAST] Allergy (Severe, Verified 02/12/24 16:29) SEIZURE vancomycin [VANCOMYCIN] Allergy (Severe, Verified 02/12/24 16:29) ITCHING, SOB doxycycline [DOXYCYCLINE] Allergy (Intermediate, Verified 02/12/24 16:29) DIFFICULTY SWALLOWING Penicillins [PENICILLINS] Allergy (Intermediate, Verified 02/12/24 16:29) RASH cephalexin [From KEFLEX] Allergy (Unknown, Verified 02/12/24 16:29) RASH Sulfa (Sulfonamide Antibiotics) [SULFA (SULFONAMIDE ANTIBIOTICS)] Allergy (Unknown, Verified 02/12/24 16:29) UNKNOWN HPI Comments Details: Belgica was seen in the office in follow-up for chronic kidney disease and hypertension. She recently had GI symptoms and was found to have C Difficile infection for which she is on medications. She is continuing to have abdominal cramps. During this illness, she has been taking ARB with development of CONRAD. She takes her Lasix only as needed basis. Her past renal ultrasound showed cortical thinning on the left. She has a diagnosis of obstructive sleep apnea and does not use CPAP. She takes a nonsteroidal anti-inflammatory medications as needed basis. She denies any urinary symptoms, chest pain, dizziness. She had been struggling with her weight and had been on Ozempic PFSH Medical History GINA (obstructive sleep apnea) Gout On beta kmaar at home Chronic headaches Splenic artery aneurysm Meningioma HTN (hypertension) Surgical History Hx laparoscopic cholecystectomy (~2013) History of hysterectomy History of History of colonoscopy (~08/2018) Family History Father Family hx of colon cancer Mother Hx of breast cancer Paternal Grandmother Colon cancer Social History Household Members: None Housing: House Alcohol intake: never Patient Tobacco Use Status: Never used Tobacco e-Cigarette/Vaping Use: Never Used service: No Cognitive needs: No Hearing needs: No Vision needs: No Review of Systems Const All systems reviewed & are unremarkable except as noted in HPI and below Physical Exam Vital Signs: Last Vital Signs BP 102/60 02/12/24 16:28 BMI result Body Mass Index 33.6 Const General: comfortable and no acute distress Orientation/consciousness: patient oriented x3 HEENT Head: Yes normocephalic Mouth: Normal oral and palatal mucosa present Eyes EOM: EOMs intact bilaterally Neck Neck: Yes supple Resp Auscultation: clear to auscultation bilaterally Cardio Jugular venous distension: no JVD Rate: regular rate GI Palpation (GI): Soft to palpation Auscultation: normal bowel sounds General: Yes no CVA tenderness Back/Spine/Pelvis Back: no CVA tenderness Skin General skin exam: no rashes or lesions noted Neuro General: patient oriented x3 and moves all extremities Extrem General: Yes no pedal edema Results Reviewed Nephrology Results: Hgb 16.0 g/dl (12.0-16.0) 02/10/24 WBC 14.1 X10*3/uL (4.8-10.8) H 02/10/24 Plt Count 272 X10*3/uL (160-400) 02/10/24 Sodium 142 mmol/L (135-145) 02/11/24 Potassium 4.1 mmol/L (3.3-5.1) 02/11/24 Chloride 112 mmol/L (96-108) H 02/11/24 Carbon Dioxide 19 mmol/L (22-29) L 02/11/24 BUN 37 mg/dL (9-16) H 02/11/24 Creatinine 1.48 mg/dL (0.5-1.4) H 02/11/24 Calcium 9.7 mg/dL (8.4-10.2) 02/11/24 Urine Creatinine 302.35 mg/dL 01/16/24 Protein/Creatinin Ratio 0.05 (<0.2) 01/16/24 Assessment & Plan Assessment & Plan (1) CONRAD (acute kidney injury): Code(s): N17.9 - Acute kidney failure, unspecified Category: Medical (2) HTN (hypertension): Code(s): I10 - Essential (primary) hypertension Category: Medical Qualifiers: Hypertension type: primary hypertension Qualified Code(s): I10 - Essential (primary) hypertension (3) CKD (chronic kidney disease) stage 3, GFR 30-59 ml/min: Code(s): N18.30 - Chronic kidney disease, stage 3 unspecified Category: Medical Qualifiers: Chronic kidney disease stage 3 subtype: stage 3a (GFR 45-59) Qualified Code(s): N18.31 - Chronic kidney disease, stage 3a Khoi Lindo has CKD due to vascular disease. She is diabetic and hypertensive. She is not known to have significant proteinuria.She likely has mild renal artery stenosis on the left given cortical thinning on that side. She has been having C Diff infection and has been on medications. She continued to take ARB during this time and developed CONRAD. I discontinued her olmesrtan and asked her to take Amlodipine 10 mg daily, replacing it. She takes Lasix as needed basis. I will consider doing a split function study of her kidney in the future. She can continue rest of her current medications for now. She needs to lose weight. Blood work ordered for follow-up. All questions answered Orders: Orders Blood Urea Nitrogen 4 Weeks I10 - Essential (primary) hypertension, N17.9 - Acute kidney failure, unspecified Electrolytes 4 Weeks I10 - Essential (primary) hypertension, N17.9 - Acute kidney failure, unspecified Creatinine 4 Weeks I10 - Essential (primary) hypertension, N17.9 - Acute kidney failure, unspecified Medications: New amlodipine 10 mg PO DAILY 30 tabs 3RF Coding Level of Care Code Est Pt Level 4 (36649) Diagnoses CONRAD (acute kidney injury) N17.9 Primary hypertension I10 Hypertension type: primary hypertension Stage 3a chronic kidney disease N18.31 Chronic kidney disease stage 3 subtype: stage 3a (GFR 45-59)
== END 2024-02-12 16:55 | disposition home or self-care (01) ==
LOC: HO.HKAS 16:24
PROVIDERS: PCP Internal Medicine; Visit Provider Internal Medicine Nephrology
DX: N17.9 Acute kidney failure, unspecified (principal); I10 Essential (primary) hypertension; N18.31 Chronic kidney disease, stage 3a
CPT/HCPCS: 99214

== ENCOUNTER → 2024-02-12 16:24 | Outpatient (BNVA) | payer BC, SELFPAY | PROVIDERS: PCP Internal Medicine; Visit Provider Internal Medicine Nephrology ==

== ENCOUNTER 2024-02-26 14:19 | Outpatient (REF) | payer BC, SELFPAY | END 2024-02-26 14:20 | disposition home or self-care (01) | LOC: HO.HOSX 14:19 | PROVIDERS: Visit Provider Orthopaedic Surgery | DX: Z13.89 Encounter for screening for other disorder (principal) ==

== ENCOUNTER 2024-03-04 14:52 | Outpatient (REF) | payer BC, SELFPAY ==
[2024-03-04 17:10] LABS: Anion Gap 12 (12-20); Blood Urea Nitrogen 24 mg/dL (9-16); Carbon Dioxide 23 mmol/L (22-29); Chloride 111 mmol/L (96-108); Estimated Glomerular Filt Rate 55; Potassium 3.8 mmol/L (3.3-5.1); Sodium 142 mmol/L (135-145)
== END 2024-03-04 14:53 | disposition home or self-care (01) ==
LOC: HO.HMGCLDS 14:52
PROVIDERS: PCP Internal Medicine; Visit Provider Internal Medicine Nephrology
DX: N17.9 Acute kidney failure, unspecified (principal); I10 Essential (primary) hypertension
CPT/HCPCS: 36415; 80051; 82565; 84520

== ENCOUNTER 2024-03-07 14:18 | Outpatient (AMB) | payer BC, SELFPAY ==
--- NOTE | 2024-03-07 14:20 | HO.NEPHOV_ITS ---
Vital Signs 03/07/24 14:22 Height 5 ft 4 in Weight 198 lb 6 oz BMI 34.0 BP 110/60 Blood Pressure Location Lt brachial Position Sitting Intake Visit Reasons: 1 mon follow up/ [employer] Supervisor Required: No Accompanied by: Self / Same As Patient Allergies Iodinated Contrast Media [IV CONTRAST] Allergy (Severe, Verified 03/07/24 14:21) SEIZURE vancomycin [VANCOMYCIN] Allergy (Severe, Verified 03/07/24 14:21) ITCHING, SOB doxycycline [DOXYCYCLINE] Allergy (Intermediate, Verified 03/07/24 14:21) DIFFICULTY SWALLOWING Penicillins [PENICILLINS] Allergy (Intermediate, Verified 03/07/24 14:21) RASH cephalexin [From KEFLEX] Allergy (Unknown, Verified 03/07/24 14:21) RASH Sulfa (Sulfonamide Antibiotics) [SULFA (SULFONAMIDE ANTIBIOTICS)] Allergy (Unknown, Verified 03/07/24 14:21) UNKNOWN HPI Comments Details: Belgica was seen in the office in follow-up for chronic kidney disease and hypertension. She recently had GI symptoms and was found to have C Difficile infection & was treated. During this illness, she has been taking ARB with development of CONRAD, which has resolved now. She takes her Lasix only as needed basis. Her past renal ultrasound showed cortical thinning on the left. She has a diagnosis of obstructive sleep apnea and does not use CPAP. She takes a nonsteroidal anti-inflammatory medications as needed basis. She denies any urinary symptoms, chest pain, dizziness. She had a wound on her left lower leg and has developed cellulitis [facility] Medical History GINA (obstructive sleep apnea) Gout On beta kamar at home Chronic headaches Splenic artery aneurysm Meningioma HTN (hypertension) Surgical History Hx laparoscopic cholecystectomy (~2013) History of hysterectomy History of History of colonoscopy (~08/2018) Family History Father Family hx of colon cancer Mother Hx of breast cancer Paternal Grandmother Colon cancer Social History Household Members: None Housing: House Alcohol intake: never Patient Tobacco Use Status: Never used Tobacco e-Cigarette/Vaping Use: Never Used service: No Cognitive needs: No Hearing needs: No Vision needs: No Review of Systems Const All systems reviewed & are unremarkable except as noted in HPI and below Physical Exam Vital Signs: Last Vital Signs BP 110/60 03/07/24 14:22 BMI result Body Mass Index 34.0 Const General: comfortable and no acute distress Orientation/consciousness: patient oriented x3 HEENT Head: Yes normocephalic Mouth: Normal oral and palatal mucosa present Eyes EOM: EOMs intact bilaterally Neck Neck: Yes supple Resp Auscultation: clear to auscultation bilaterally Cardio Jugular venous distension: no JVD Rate: regular rate GI Palpation (GI): Soft to palpation Auscultation: normal bowel sounds General: Yes no CVA tenderness Back/Spine/Pelvis Back: no CVA tenderness Skin General skin exam: no rashes or lesions noted Neuro General: patient oriented x3 and moves all extremities Extrem General: Yes no pedal edema Results Reviewed Nephrology Results: Sodium 142 mmol/L (135-145) 03/04/24 Potassium 3.8 mmol/L (3.3-5.1) 03/04/24 Chloride 111 mmol/L (96-108) H 03/04/24 Carbon Dioxide 23 mmol/L (22-29) 03/04/24 BUN 24 mg/dL (9-16) H 03/04/24 Creatinine 1.00 mg/dL (0.5-1.4) 03/04/24 Calcium 9.7 mg/dL (8.4-10.2) 02/11/24 Urine Creatinine 302.35 mg/dL 01/16/24 Protein/Creatinin Ratio 0.05 (<0.2) 01/16/24 Assessment & Plan Assessment & Plan (1) CKD (chronic kidney disease) stage 3, GFR 30-59 ml/min: Code(s): N18.30 - Chronic kidney disease, stage 3 unspecified Category: Medical Qualifiers: Chronic kidney disease stage 3 subtype: stage 3a (GFR 45-59) Qualified Code(s): N18.31 - Chronic kidney disease, stage 3a (2) HTN (hypertension): Code(s): I10 - Essential (primary) hypertension Category: Medical Qualifiers: Hypertension type: primary hypertension Qualified Code(s): I10 - Essential (primary) hypertension (3) Cellulitis: Code(s): L03.90 - Cellulitis, unspecified Category: Medical Qualifiers: Site of cellulitis: extremity Site of cellulitis of extremity: lower extremity Laterality: left Qualified Code(s): L03.116 - Cellulitis of left lower limb Khoi Lindo has CKD due to vascular disease. She is diabetic and hypertensive. She is not known to have significant proteinuria.She likely has mild renal artery stenosis on the left given cortical thinning on that side. She had C Diff infection and was treated. Her BP is at goal and her renal functions are back to baseline. She takes Lasix as needed basis. I will consider doing a split function study of her kidney in the future. I prescribed her levaquin. All questions answered Orders: Orders Blood Urea Nitrogen 03/07/24 I10 - Essential (primary) hypertension, N18.31 - Chronic kidney disease, stage 3a Electrolytes 03/07/24 I10 - Essential (primary) hypertension, N18.31 - Chronic kidney disease, stage 3a Creatinine 03/07/24 I10 - Essential (primary) hypertension, N18.31 - Chronic kidney disease, stage 3a Medications: New levofloxacin 250 mg PO DAILY 7 days 7 tabs 0RF Refilled furosemide (Lasix) 20 mg PO DAILY 30 tabs 6RF Leg swelling Coding Level of Care Code Est Pt Level 4 (29838) Diagnoses Stage 3a chronic kidney disease N18.31 Chronic kidney disease stage 3 subtype: stage 3a (GFR 45-59) Primary hypertension I10 Hypertension type: primary hypertension Cellulitis of left lower extremity L03.116 Site of cellulitis: extremity Site of cellulitis of extremity: lower extremity Laterality: left
[2024-03-07 14:22] VITALS: BP 110/60; BMI 34.0
== END 2024-03-07 14:43 | disposition home or self-care (01) ==
PROVIDERS: PCP Internal Medicine; Visit Provider Internal Medicine Nephrology
DX: I12.9 Hypertensive chronic kidney disease with stage 1 through stage 4 chronic kidney disease, or unspecified chronic kidney disease (principal); N18.31 Chronic kidney disease, stage 3a; L03.116 Cellulitis of left lower limb
CPT/HCPCS: 99214

== ENCOUNTER → 2024-03-07 14:18 | Outpatient (BNVA) | payer BC, SELFPAY | PROVIDERS: PCP Internal Medicine; Visit Provider Internal Medicine Nephrology ==

== ENCOUNTER 2024-05-24 08:43 | Emergency (ER) | payer BC, SELFPAY ==
--- NOTE | ~2024-05-24 | CT_ITS ---
CLINICAL HISTORY: +E. coli, lower tenderness CT abdomen and pelvis without contrast Comparison: CT/AZ/SR - CT ABDOMEN PELVIS WO IV CON - 02/10/24 21:17 EDT Findings: Pleural-parenchymal thickening/scarring in the right middle lobe and lingula. No basilar pleural or pericardial effusion. Post cholecystectomy changes. Complete fatty replacement of the pancreas. Remainder of the solid intra-abdominal organs show no acute findings. Bowel is not obstructed. Normal appendix. Colonic diverticula without diverticulitis. Atherosclerotic calcifications of the aorta. 2.2 x 2.2 cm peripherally calcified splenic artery aneurysm. Mild stranding around the urinary bladder, possibly related to underdistention though correlate clinically for cystitis. The bones are intact. Multilevel degenerative changes of the spine. Mild anterolisthesis of L4 on L5. Mild retrolisthesis of L1 on L2 and L2 on L3. IMPRESSION: No acute findings in the abdomen or pelvis. Mild stranding around the urinary bladder, possibly related to underdistention though correlate clinically for cystitis. Colonic diverticula without diverticulitis. Additional findings as described. This document has been electronically signed by: Sue Upton MD on 05/24/2024 12:56:03
[2024-05-24 08:44] VITALS: BP 146/72; PULSE 79; RESP 16; TEMP 36.3; O2SAT 100; BMI 33.1
--- OUTSIDE RECORDS SUMMARY | 2024-05-24 08:59 | XMS_ITS | Encounter Summary ---
Author Organization [facility] Address [address] [place] [address] Phone Care Team Providers Care Home Service Director Name Role Phone Benji Salcedo MD Primary Care Provider [phone] Encounter Details Date Type Department Care Team (Late st Contact Info) Description 08/15/2022 Telephone [facility] [address] [place] [address] Sue Tinoco Social History Tobacco Use Types Packs/Day Years Used Date Smoking Tobacco: Never Smokeless Tobacco: Never Alcohol Use Standard Drinks/Week Comments Never 0 (1 standard drink = 0.6 oz pur e alcohol) Comments Unknown Sex and Gender Information Value Date Recorded Sex Assigned at Not on file Legal Sex Female 5:18 PM EST Gender Identity Not on file Sexual Orientation Not on file documented as of this encounter Miscellaneous Notes * Telephone Encounter - Sue Tinoco - 08/15/2022 2:50 PM EDT PT is checking back on her message below, she says she has been trying to get a response for two weeks now and hasn't heard back. Below is her older message.... PT is getting knee replacement in October or November, she is looking for a sooner appointment to obtainclearance for this surgery. PT wants to also see if she could go back on her hydrochlorothiazide medication and says that she can now have IV with contrast because she says her levels are good. documented in this encounter Plan of Treatment Not on file documented as of this encounter Visit Diagnoses Not on filedocumented in this encounter Care Teams Home Service Director Relationship Specialty Start Date End Date Benji Salcedo MD [address] [place] [address] PCP - General 04/26/20 documented as of this encounter
--- OUTSIDE RECORDS SUMMARY | 2024-05-24 08:59 | XMS_ITS | Clinical Summary ---
Author Organization [facility] Address [address] [place] [address] Care Team Providers Care Beaming Inspector Name Role Phone Benji Salcedo MD Primary Care Provider Unavail able Allergies Active Allergy Reactions Criticality Noted Date Comments Penicillins Other (See Comments) 07/21/2020 Vancomycin 07/21/2020 Medications Medication Sig Dispensed Refills Start Date End Date Status hydroCHLOROthiaz maren (HYDRODIURIL) tablet 12.5 mg hydrochlorothiazide 12.5 mg tablet 0 08/10/2020 Active traMADol (ULTRAM) 50 MG tablet 0 01/17/2021 Active metoprolol tartrate (LOPRESSOR) 100 MG tablet Take by mouth 2 (two) times a day. 0 Active Family History Medical History Relation Name Comments Cancer Father Diabetes Father Cancer Mother Relation Name Status Comments Father Mother Social History Tobacco Use Types Packs/Day Years Used Date Smoking Tobacco: Never Assessed Sex and Gender Information Value Date Recorded Sex Assigned at Not on file Gender Identity Not on file Sexual Orientation Not on file Job Start Date Occupation Industry Not on file Not on file Not on file Last Filed Vital Signs Vital Sign Reading Time Taken Comments Blood Pressure - - Pulse - - Temperature - - Respiratory Rate - - Oxygen Saturation - - Inhaled Oxygen Concentration - - Weight 79.4 kg (175 lb) 03/15/2021 3:02 PM EST Height 165.1 cm (5' 5 ) 03/15/2021 3:02 PM EST Body Mass Index 29.12 03/15/2021 3:02 PM EST Plan of Treatment Health Maintenance Due Date Last Done Comments Hepatitis C Screening 1955 COVID-19 Vaccine (#1) 1954 Depression Screening 1966 Preventative Health Evaluation 1972 DTap / Tdap / Td (1 - Tdap) 1973 Colon Cancer Screening (Colonoscopy) 1999 Breast Cancer Screening (Mammogram) 2004 Shingrix-Zoster Vaccine (1 of 2) 2004 Fall Risk Assessment 2019 Osteoporosis Screening (DEXA Scan) 2019 Pneumococcal Vaccine (1 of 1 - PCV) 2019 Influenza Vaccine (#1) 2023 01/24/2020 RSV Adult > 60+ Yrs or Pregn ant (1 - 1-dose 75+ series) 2029 Hepatitis B Vaccines Aged Out No long er eligible based on patient's age to complete this topic RSV Ped < 20 months Aged Out No longe r eligible based on patient's age to complete this topic Care Teams Beaming Inspector Relationship Specialty Start Date End Date Benji Salcedo MD PCP - General Internal Medicine 09/10/14
--- OUTSIDE RECORDS SUMMARY | 2024-05-24 08:59 | XMS_ITS | Data Portability ---
Author Organization [place] [facility] Aditya Owen [place] Address [address] [place] [address] Assessment Encounter Date Assessment Date Assessment LastModified by Organization Details LastModified Time 08/14/2022 08/14/2022 This is a pleasa nt 67-year-old female with severe degenerative joint disease of both knees right worse than left. She has tried conservative management. She states that her A1c is within acceptable range and that she is controlled regarding her diabetes. She had a fall approximately 3 months ago landing on her knees with most of the impact on the right knee. She denies any lasting symptoms from that fall and she is back to baseline. She does present with a left bifid patella versus old fracture however clinically on exam nonreproducible. We did discuss treatment options such as cortisone injection versus viscosupplementation injection, therapy however the patient wishes to proceed forward to see Dr. Beltran for right knee replacement surgery. Pertinent to her medical history she does states she has stage III kidney disease . She should abstain from all nonsteroidal anti-inflammatory medications. This will also be considered after the time of potential surgery. We will set up a appointment accordingly. The patient agrees with the above-noted plan. Indirect care and treatment in conjunction with Dr. Beltran Additional treatment plan discussed with the patient in detail included the following; - Provider focused nonsteroidal anti-inflammatory regimen (discussed were the pros, cons, benefits and risks as well as any black box warnings) in patients over 60 years old they should be very cautious in taking these medications due to potential decreased kidney function and or elevated blood pressure. - Analgesic pain medication for pain suppression (discussed were the pros, cons, benefits and risks as well as any black box warnings) - The use of topical pain relieving medication were discussed - The use of ice to decrease inflammation and pain - The use of assistive ambulatory devices for ambulation and fall prevention - Formal specific guided physical therapy program I reviewed my findings at length with the patient today. ? ? ?We discussed the nature and etiology of this problem along with current treatment options. We discussed the expected course and outcomes and what to expect. We also discussed risks and benefits. ? ? ? All of their questions were answered today, and there was exhibited understanding and comprehension of all that was discussed. 10 minutes were spent reviewing previous imaging and charting. ? ? ?10 minutes were spent obtaining patient history. ? ? ?5 minutes were spent on physical exam. ? ? ?5? ? ?minutes were spent explaining diagnosis and assessment. Today's documentation was made using voice recognition software. This note may contain grammatical errors secondary to the software. Not available 08/15/2022 07:49:37 Plan of Treatment Reminders Order Date Submit Date Provider Last Modified By Organization Details Last Modified Time Details Appointments None recorded. Lab None recorded. Referral None recorded. Procedures None recorded. Surgeries total knee replacement (SURG) 2022 023 [email or web address] Not available 12:43:00 Imaging XR, knee, 4 or more view 2022 023 LISHA [facility], [address], [place], [address], 07:44:36 Medication Orders None recorded. Patient TargetsNo targets recorded. Patient Instructions Encounter Date Encounter Id Patient Instructions Last Modified By Organization Details Last Modified Time 08/14/2022 [id number] Bilateral knee x-rays were performed which include AP, Alcantar, lateral and sunrise views; Right knee x-ray reveals grade 4 medial compartment degenerative change, subchondral sclerosis and osteophyte formation. There is also degenerative change within the patellofemoral compartment with enthesopathy. Normal bone mineralization no acute bony abnormality. Left knee x-ray revealed medial compartment grade 3/4 degenerative change, bifid patella versus old fracture at the 1-2 o'clock region on AP view this can also be seen on sunrise and lateral views. Moderately severe patellar femoral degenerative change with enthesopathy, subchondral sclerosis. No obvious acute bony abnormality and normal bone mineralization. Not available 08/15/2022 07:44:12 Reason for Referral None Reported. Problems Name Problem SNOMED Code Status Onset Date Resolution Date Notes Provider Name and Address Organization Details Recorded Time Osteoarthri tis of right knee joint 0608873238317 00 Active 2022 TOYA COMBS PA-C [address], [place], [address], [place] [facility] 07:47:22 Osteoarthri tis of left knee joint 1361985908473 09 Active 2022 TOYA COMBS PA-C [address], [place], [address], [place] [facility] 07:47:28 Problem Notes None recorded. Medical Equipment None Reported. Allergies Allergen ID Allergen Name Allergen Category Reaction Reaction Severity Criticality Documentation Date Start Date Code Code System Note Provider Name and Address Organization Details Recorded Time 3315 Product containin g penicilli n and antibioti c (product) medicatio n Not available Not available Not available 08/14/2022 53712 05 SNOMED Kathy Quinn [facility], [facility], [facility] 3 15:20:29 3316 vancomyci n medicatio n Not available Not available Not available 08/14/2022 91042 RxNorm Kathy Quinn [facility], [facility], [facility] 3 15:20:51 Medications Name Sig Start Date Stop Date Status Note LastModified by Organization Details LastModified Time metformin 500 mg tablet TAKE 1 TABLET BY MOUTH EVERY DAY WITH MORNING AND EVENING MEALS active Not Available Not Available No t Available prednisone 20 mg tablet TAKE 1 TABLET BY MOUTH 1 TIME EACH DAY FOR 10 DAYS. 08/14 completed Not Available Not Available Not Available allopurinol 100 mg tablet TAKE 1 TABLET BY MOUTH EVERY DAY active Not Available Not Available No t Available tramadol 50 mg tablet TAKE 1 TABLET BY MOUTH EVERY 12 HOURS NEEDED 08/14 completed Not Available Not Available Not Available buspirone 10 mg tablet TAKE 1 TABLET BY MOUTH TWICE A DAY active Not Available Not Available No t Available metoprolol tartrate 50 mg tablet TAKE 1 TABLET BY MOUTH TWICE A DAY WITH MEALS active Not Available Not Available No t Available colchicine 0.6 mg tablet TAKE 1 TABLET BY ORAL ROUTE 3 TIMES EVERY DAY X 1 DAY THEN DECRAESE TO 1 TIME A DAY active Not Available Not Available No t Available betamethaso ne dipropionat e 0.05 % topical ointment APPLY THIN COAT TO AFFECTED AREA TWICE A DAY 08/14 completed Not Available Not Available Not Available ondansetron 4 mg disintegrat ing tablet TAKE 1 TABLET BY MOUTH 2 TIMES DAILY NEEDED FOR NAUSEA/VO MITING active Not Available Not Available No t Available nitrofurant oin monohydrate /macrocryst als 100 mg capsule TAKE 1 CAPSULE BY MOUTH EVERY 12 HOURS WITH FOOD active Not Available Not Available No t Available duloxetine 30 mg capsule,del ayed release TAKE 1 CAPSULE BY MOUTH EVERY DAY 08/14 completed Not Available Not Available Not Available hydrochloro thiazide 12.5 mg tablet TAKE 1 TABLET BY MOUTH 1 TIME EACH DAY. 08/14 completed Not Available Not Available Not Available amlodipine 10 mg-olmesart an 20 mg tablet TAKE 1 TABLET BY MOUTH EVERY DAY active Not Available Not Available No t Available amlodipine 10 mg-olmesart an 40 mg tablet TAKE 1 TABLET BY MOUTH EVERY DAY active Not Available Not Available No t Available amlodipine 5 mg-olmesart an 20 mg tablet TAKE 1 TABLET BY MOUTH 1 TIME EACH DAY. active Not Available Not Available No t Available Suprep Bowel Prep Kit 17.5 gram-3.13 gram-1.6 gram oral solution PLEASE SEE ATTACHED FOR DETAILED DIRECTION S 08/14 completed Not Available Not Available Not Available Trulicity 0.75 mg/0.5 mL subcutaneou s pen injector INJECT 1 PEN ONCE WEEKLY active Not Available Not Available No t Available FreeStyle Ladonna 14 Day Sensor kit CHANGE EVERY 14 DAYS DIRECTED active Not Available Not Available No t Available Vitals Date Recorded Body height Body mass index (BMI) Body weight Provider Name and Address Organization Details Last Updated DateTime 08/14/2022 165.1 cm 36.6 kg/m2 90161.32 g Kathy Quinn [place] - [facility] 08/14/2022 15:21:42 Date Recorded Body height Provider Name an d Address Organization Details Last Updated DateTime 08/31/2022 165.1 cm Jenifer Peñaloza [place] - [facility] 08/31/2022 16:10:36 Social History Question Answer Notes LastModified by Organizat ion Details LastModified Time Tobacco Smoking Status Never Smoker Kathy Quinn null, [place] - [facility] 08/14/2022 15:21:53 What Is Your Level Of Alcohol Consumption? None [email or web address] Information not available 08/14/2022 Do You Use Any Illicit Or Recreational Drugs? No [email or web address] Information not available 08/14/2022 Sex: Unknown Functional Status None recorded. Mental Status None recorded. Family History Relationship Description Onset Age of this Age Resolved Age Notes LastModified by Organization Details LastModified Time Mother Family history of malignant neoplasm [email or web address] Not available 08/14 15:22:22 Father Diabetes mellitus [email or web address] Not available 08/14 15:22:30 Father Heart disease [email or web address] Not available 08/14 15:22:41 Father Hypertensive disorder [email or web address] Not available 08/14 15:22:50 Medical History Condition Response Coronary Artery Disease N Gout Y Hyperthyroidism N MRSA N Blood Transfusion N Emphysema N Hypothyroidism N Depression N COPD N Pacemaker N Vascular Disease N Gastrointestinal Disease N Anxiety Disorder N Autoimmune disease N Arthritis N Cancer N Stroke N High Cholesterol N Neurologic Disorder N Liver Disease N Organ Transplant N Rheumatoid Arthritis N Arrhythmia N Fibromyalgia N Kidney Disease Y Allergies/Hayfever N Adverse Reaction to Anesthesia N Thyroid Problems N Anemia N Brain Injury N Heart Attack (PR) N Osteopenia N Diabetes Y Bleeding Disorder N Seizures/Epilepsy N AIDS/HIV N Congestive Heart Failure (CHF) N Asthma N Amputation N Reflux/GERD N Sleep Apnea N Hepatitis N Aneurysm N Heart Disease N Pulmonary Embolism N Hypertension Y Osteoporosis N Gynecological HistoryNo gynecological history recorded. Obstetrics History GPAL:G 0 P 0 0 0 0 Past Encounters Encounter ID Performer Location Encounter Start Date Encounter Closed Date Diagnosis/Indication Diagnosis SNOMED-CT Code Diagnosis ICD10 Code Diagnosis Note [id number] MD SULEIMAN Patrick [address] [place] [address] 08/14/2022 14:58:36 08/14/2022 15:35:52 Pain of right knee joint 8288665415 84500 M25.561 Osteoarthr itis of right knee joint 2992482809 14609 M17.11 Osteoarthr itis of left knee joint 6439585335 20388 M17.12 [id number] Luis Carlos Beltran MD [address] [address] 08/31/2022 16:05:05 08/31/2022 16:27:49 Osteoarthritis of right knee joint 0419435782 73060 M17.11 Arthritis of knee 986879 002 M13.869 Health Concerns Section Related Observation LastModified by Organization Detai ls LastModified Time None Recorded Concern Status LastModified by Organization Details LastModified Time None Recorded Advance Directives Directive None Recorded Payers Encounter Date Sequence Insurance Name Policy Number Policy Tatum Covered Member ID Tatum Member ID Guarantor Name 08/14/2022 1 [employer] [employer] [address] [place] [id number] [address] [place] 08/31/2022 1 [place] [employer] [employer] [address] [place] [id number] [place] [place] Notes Date Note Type Note Provider Name and Address Organization Details Recorded Time 08/14/2022 text/html Assessment and P nicolas: Date of visit 03/15/2021. Seen by me chart in [id number] female with end-stage degenerative joint disease of the right knee had a lengthy discussion with patient guarding management. She recently had a cortisone injection which only lasted a short period of time she cannot receive an injection for least 3 months. I did discuss viscosupplementation with her however this is not efficacious in the severity of her right knee. We also discussed bracing which she will consider as well as total joint replacement which is not a consideration at this time.? ? ?If we go ahead with knee bracing it will be a double hinged knee brace for stabilization. I did review her imaging studies with her in detail and she agrees with above no plan.? ? ?Toya Combs PA-C HPI:This is a pleasant 67-year-old female who comes in with bilateral knee pain right worse than left with had ongoing pain for a number of years however has become progressively worse. She has tried conservative management with nonsteroidal anti-inflammatories. She states that this is affecting her on a daily basis and her quality of life. She states she did have a fall approximately 3 months ago for which she landed on her knees with the right knee taking the brunt of the force. She states however she recovered from this without any lingering factors. She states she is at baseline at this point. She denies any fevers or chills any history of Lyme disease, rheumatoid arthritis or gout she denies any history of joint infections. She describes her pain is generalized as well as medial in nature is worse with weightbearing as well as scratching positions. She states she cannot walk for prolonged period of time due to the pain in both of her knees. TOYA COMBS PA-C [address] [place] [address], [id number], [place] [facility] 08/15/2022 07:49:50 08/31/2022 text/html HPI:?Thank you for the pleasure of requesting a consultation on this patient. Patient comes in complaining of right knee pain. She has bilateral knee pain, but the right knee pain is much worse than the left. She has undergone cortisone and gel injections in the past last one greater than 1 year ago.This patient is experiencing right knee pain for a period lasting greater than the last three months, which is severe (VAS score greater than or equal to 6 on a 0-10 scale) in intensity and the restriction of function (appropriate for a patient of this age) are intolerable. The pain substantially limits activities of daily living. In particular, walking tolerance and ability to stair climb is reduced. Conservative management such as non-steroidal anti-inflammatory medications available by prescription, physician directed therapy, ice and/or heat and activity modification have been minimally effective or deemed insufficient by the patient for a period lasting greater than 3-6 months in duration. Assistive devices and external support were not deemed by the patient to be helpful in improving their function. The patient is unable to tolerate further conservative measures, including physical therapy, due to the severity of arthritis and level of pain. Review of systems is negative for rapidly progressive neurological disorder, chest pain, shortness of breath, fevers, chills, or any signs of active or persistent local or systemic infection. Physical Exam: Patient is well nourished, well-developed, in no acute distress, with appropriate mood and affect. The patient is oriented to time, place, and person. Respirations are even and unlabored. Gait evaluation does reveal a limp. There is no inguinal adenopathy. Examination of the left knee shows pain with range of motion. Joint line tenderness. Range of motion 0 to 125 degrees.. The affected limb is well-perfused, without skin lesions, shows a grossly normal motor and sensory examination. Right knee motion is significantly reduced and does cause significant pain. The knee moves from 5-120 degrees. The knee is stable within that [id number] to AP and ML stress. The alignment of the knee is {{varus* valgus neutra l}}. Muscle strength is normal. Pedal pulses are palpable. Hip examination, including flexion and internal rotation, was negative in that groin pain was not produced. Radiographs of the right knee from August 14, 2022 demonstrate degenerative joint disease with joint space narrowing, osteophyte formation, and subchondral sclerosis. [id number] articulation in the medial compartment. Assessment/Plan: The patient is an appropriate candidate for consideration of right total knee replacement. An extensive discussion was conducted of the natural history of the disease and the variety of surgical and non-surgical treatment options available to the patient. A risk/benefit analysis was discussed with the patient reviewing the advantages and disadvantages of surgical intervention at this time. A full explanation was given of the nature and the purpose of the procedure and anesthesia, its benefits, possible alternative methods of diagnosis of treatment, the risks involved, the possibility of complications, the foreseeable consequences of the procedure and the possible results of the non-treatment. No guarantee or assurance was made as to the results that may be obtained. Specifically, the risks were identified to include, but are not limited, to the following: Infection, phlebitis, pulmonary embolism, , paralysis, dislocation, pain, stiffness, instability, limp, weakness, breakage, leg-length inequality, uncontrolled bleeding, nerve injury, blood vessel injury, pressure sores, anesthetic risks, delayed healing of wound and bone, and wear and loosening. Additional risks of robotic knee replacement were discussed (if used) including but not limited to pin site infection, draining, longer incision, longer OR time, and fracture near the pin sites. Further discussion was undertaken with the patient about the details of surgical preparation, treatment and postoperative rehabilitation including medical clearance, autotransfusion, the hospital course and the postoperative rehabilitation involved. As a part of routine preoperative counseling, the patient either denies recent smoking history or, after education was provided, agrees to attempt smoking cessation. The patient has also been counseled regarding the elevated risk of surgical complications in patients with an elevated BMI. The patient demonstrates understanding of the increased risk in such patients. The patient was encouraged to participate in physical activity and diet modification under the direction of their primary care physician. We will plan on proceeding with right total knee arthroplasty using the Jennifer total knee replacement system. However, it is possible during the preoperative planning process or due to intraoperative findings that a different implant system may be utilized in order to optimize the patient's outcome. We had a discussion regarding implant and bearing options. We had a detailed discussion of the advantages and limitations of the specific implant designs, materials and bearing surfaces. All questions were answered to the patient's satisfaction, and the patient was asked to call the office with any further concerns. All in all, I feel that this patient is a good candidate for surgical reconstruction.? Plan for right total knee replacement, robotic assisted, at [email or web address]. Luis Carlos Beltran MD [address], [place], [address], [place] [facility] 08/31/2022 16:35:11 OBGyn Episode No OBEpisode recorded.
--- OUTSIDE RECORDS SUMMARY | 2024-05-24 08:59 | XMS_ITS | Encounter Summary ---
Author Organization [facility] Address [address] [place] [address] Phone Care Team Providers Care Carpenter Assistant Name Role Phone Benji Salcedo MD Primary Care Provider [phone] Encounter Details Date Type Department Care Team (Late st Contact Info) Description 07/13/2021 Telephone [facility] [address] [place] [address] Noy Tuttle Social History Tobacco Use Types Packs/Day Years [...] on file documented as of this encounter Plan of Treatment Not on file documented as of this encounter Visit Diagnoses Not on filedocumented in this encounter Care Teams Carpenter Assistant Relationship Specialty Start Date End Date Benji Salcedo MD [address] [facility] [address] [place] [address] PCP - General 04/26/20 documented as of this encounter
--- OUTSIDE RECORDS SUMMARY | 2024-05-24 08:59 | XMS_ITS | Encounter Summary ---
Author Organization [facility] Address [address] [place] [address] Phone Care Team Providers Care Front Services Agent Name Role Phone Benji Salcedo MD Primary Care Provider [phone] Encounter Details Date Type Department Care Team (Late st Contact Info) Description 08/29/2021 Telephone [facility] [address] [place] [address] Taqueria Hook MD Social History Tobacco Use Types Packs/Day Years [...] encounter Miscellaneous Notes * Telephone Encounter - Marga Newsome - 08/29/2021 1:58 PM EDT Pt called she had blood in her urine and had her labs done by her pcp for a UTI but they came back negative. She thinks she might have a kidney stone because she also has pain on the right side of her back. Please advise CB# [phone] Thank you documented in this encounter Plan of Treatment Not on file documented as of this encounter Visit Diagnoses Not on filedocumented in this encounter Care Teams Front Services Agent Relationship Specialty Start Date End Date Benji Salcedo MD [address] [facility] [address] [place] [address] PCP - General 04/26/20 documented as of this encounter
--- OUTSIDE RECORDS SUMMARY | 2024-05-24 09:00 | XMS_ITS | Data Portability ---
Author Organization [facility] PA[facility] Address [address] [facility] [address] [place] [address] Care Team Providers Care Assembler Final Name Role Phone HELENE QUEZADA Primary Care Provider [phone] Assessment Encounter Date Assessment Date Assessment LastModified by Organization Details LastModified Time 08/14/2023 08/14/2023 Belgica Pierce is a 68 year old woman with complaints of low back radiating into right lower extremity. 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 She is here for a Lumbar epidural steroid injections under fluoroscopic guidance . The risks and benefits of the procedure were discussed in detail. She wishes to proceed. She needs to follow up in four weeks. [email or web address] Not available 08/14/2023 13:19:42 10/31/2023 10/31/2023 Belgica Pierce is a 68 year old woman with complaints of low back pain and left knee pain. Her greatest pain today is in her left knee. On exam, she has swelling and tenderness in the medial joint line region of the left knee. She is here for a left knee genicular nerve block under fluoroscopic guidance. The risks and benefits of the procedure were discussed in detail. She wishes to proceed. She can follow up for a lumbar epidural steroid injection under fluoroscopic guidance in 4 weeks. [email or web address] Not available 10/31/2023 14:09:41 12/11/2023 12/11/2023 Belgica Pierce is a 68 year old woman with complaints of low back radiating into right lower extremity. 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 She is here for a Lumbar epidural steroid injections under fluoroscopic guidance . The risks and benefits of the procedure were discussed in detail. She wishes to proceed. She needs to follow up in for a left knee genicular nerve block [email or web address] Not available 12/11/2023 13:32:07 12/27/2023 12/27/2023 Belgica Pierce is a 68 year old woman with complaints of low back pain and right knee pain. Her greatest pain today is in her right knee. On exam, she has swelling and tenderness in the medial joint line region of the right knee. She is here for a right knee genicular nerve block under fluoroscopic guidance. The risks and benefits of the procedure were discussed in detail. She wishes to proceed. She can follow up as needed. [email or web address] Not available 12/27/2023 16:34:51 04/01/2024 04/01/2024 Belgica Pierce is a 68 year old woman with complaints of low back radiating into right lower extremity. 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 She is here for a Lumbar epidural steroid injections under fluoroscopic guidance . The risks and benefits of the procedure were discussed in detail. She wishes to proceed. She needs to follow up as needed. [email or web address] Not available 04/01/2024 16:42:22 Plan of Treatment Reminders Order Date Submit Date Provider Last Modified By Organization Details Last Modified Time Details Appointments PROCEDURE 2024 01:00P M Bridger dan MD Not available Not available Not available Lab None recorded. Referral None recorded. Procedures None recorded. Surgeries None recorded. Imaging None recorded. Medication Orders None recorded. Patient TargetsNo targets recorded. Patient Instructions Encounter Date Encounter Id Patient Instructions Last Modified By Organization Details Last Modified Time 10/31/2023 [id number] She was advised against bed rest lasting longer than four days and to continue activities as tolerated. [email or web address] Not available 10/31/2023 14:07:55 12/11/2023 [id number] She is a diabetic??. Blood sugar levels may temporarily increase after steroid injections. She was advised to check?? blood glucose levels three times a day post procedure. If?? levels are above 250, she was advised to contact??the PCP. [email or web address] Not available 12/11/2023 13:32:29 12/27/2023 [id number] She was advised against bed rest lasting longer than four days and to continue activities as tolerated. [email or web address] Not available 12/27/2023 16:33:20 04/01/2024 [id number] She is a diabetic??. Blood sugar levels may temporarily increase after steroid injections. She was advised to check?? blood glucose levels three times a day post procedure. If?? levels are above 250, she was advised to contact??the PCP. [email or web address] Not available 04/01/2024 16:41:21 Reason for Referral None Reported. Problems Name Problem SNOMED Code Status Onset Date Resolution Date Notes Provider Name and Address Organization Details Recorded Time Knee pain Active Bridger dan MD [address] , [address], [facility] [place], [address], [place] [facility] 6 14:37:23 Displacement of lumbar intervertebral disc without myelopathy 72921477 Active Bridger dan MD [address] , [address], [facility] [place], [address], [place] [facility] 6 14:37:23 Lumbosacral spondylosis without myelopathy 47526854 Active Bridger dan MD [address] , [address], [facility] [place], [address], [place] [facility] 6 14:37:23 Muscle pain 88521854 Active Bridger dan MD [address] , [address], [place], [address], [place] [facility] 14:37:23 Problem Notes None recorded. Procedures Surgical History Date Name Laterality Status Provider Name and Address Organization Details Recorded Time 04/01/20 24 Lumbar Epidural steroid injection under fluoroscopic guidance completed Bridger Soriano MD [address] , [address], [place], [address], [place] [facility] 04/01/2024 16:41:47 12/27/19 24 Genicular Nerve block completed Bridger Soriano MD [address] , [address], [facility] [place], [address], [place] [facility] 12/27/2023 16:34:14 12/11/19 24 Lumbar Epidural steroid injection under fluoroscopic guidance completed Bridger Soriano MD [address] , [address], [place], [address], [place] [facility] 12/11/2023 13:31:06 10/31/19 24 Genicular Nerve block completed Bridger Soriano MD [address] , [address], [place], [address], [place] [facility] 10/31/2023 14:08:55 08/14/19 24 Lumbar Epidural steroid injection under fluoroscopic guidance completed Bridger Soriano MD [address] , [address], [place], [address], [place] [facility] 08/14/2023 13:19:15 07/25/19 24 Genicular Nerve block completed Bridger Soriano MD [address] , [address], [place], [address], [place] [facility] 07/25/2023 14:26:15 04/12/20 23 Intra-articular Knee Steroid Injection completed Bridger Soriano MD [address] , [address], [place], [address], [place] [facility] 04/12/2023 13:55:40 03/21/20 23 Lumbar Epidural steroid injection under fluoroscopic guidance completed Bridger Soriano MD [address] , [address], [place], [address], [place] [facility] 03/21/2023 13:28:50 09/01/19 22 Intra-articular Knee Steroid Injection completed Bridger Soriano MD [address] , [address], [place], [address], [place] [facility] 09/02/2021 10:34:04 06/07/19 22 Lumbar Epidural steroid injection under fluoroscopic guidance completed Bridger Soriano MD [address] , [address], [place], [address], [place] [facility] 06/08/2021 08:41:03 03/24/20 21 Intra-articular Knee Steroid Injection completed Bridger Soriano MD [address] , [address], [place], [address], [place] [facility] 03/24/2021 15:38:55 02/08/20 21 Intra-articular Knee Steroid Injection completed Bridger Soriano MD [address] , [address], [place], [address], [place] [facility] 02/08/2021 08:53:02 04/12/20 20 Intra-articular Knee Steroid Injection completed Bridger Soriano MD [address] , [address], [place], [address], [place] [facility] 04/12/2020 15:35:24 01/20/20 20 Intra-articular Knee Steroid Injection completed Bridger Soriano MD [address] , [address], [place], [address], [place] [facility] 01/20/2020 15:28:58 11/11/19 16 Intra-articular Knee Steroid Injection completed Bridger Soriano MD [address] , [address], [place], [address], [place] [facility] 11/11/2015 14:57:23 04/16/19 14 Cholecystectomy completed Elenaaltaf Ramirez [place] [facility] 10/28/2015 15:23:45 Hysterectomy completed Leena Ramirez [place] [facility] 10/28/2015 15:23:45 Caesarean Section completed Elenaaltaf Ramirez [place] [facility] 10/28/2015 15:23:45 Imaging Results None recorded. Procedure Notes None recorded. Medical Equipment None Reported. Allergies Allergen ID Allergen Name Allergen Category Reaction Reaction Severity Criticality Documentation Date Start Date Code Code System Note Provider Name and Address Organization Details Recorded Time 44574 Product containin g penicilli n and antibioti c (product) medicatio n rash Not available Not available 10/28/2015 21754 05 SNOMED Elena [place], [place] [facility] 6 15:23:45 95340 Keflex medicatio n Not available Not available Not available 10/28/2015 7 RxNorm Facia l SweLL LEOBARDO [place], [place] [facility] 2 14:17:48 02509 vancomyci n medicatio n Not available Not available Not available 10/28/2015 64191 RxNorm ElenaJENNIFER [facility] 6 15:23:45 76170 Iodinated contrast media (substanc e) medicatio n other Not available Not available 10/28/2015 67420 2004 SNOMED Right arm tremo rs [facility] 6 15:23:45 Medications Name Sig Start Date Stop Date Status Note LastModified by Organization Details LastModified Time cyclobenzap rine 10 mg tablet 12/17 completed Not Available Not Available Not Available Qvar 80 mcg/actuati on Metered Aerosol oral inhaler Inhale 2 puffs twice a day by inhalatio n route. 12/17 completed Not Available Not Available Not Available prednisone 10 mg tablet TAKE 5 TABLETS BY MOUTH EVERY DAY FOR 5 DAYS 03/19 completed Not Available Not Available Not Available doxycycline hyclate 100 mg capsule 12/17 completed Not Available Not Available Not Available trazodone 50 mg tablet TAKE 1 TABLET BY MOUTH EVERYDAY AT BEDTIME 02/07 completed Not Available Not Available Not Available azithromyci n 250 mg tablet 12/17 completed Not Available Not Available Not Available metoprolol tartrate 100 mg tablet Take 1 tablet every day by oral route. 12/17 completed Not Available Not Available Not Available sulfamethox azole 400 mg-trimetho prim 80 mg tablet active Not Available Not Available Not Available hydrocodone 5 mg-acetamin ophen 325 mg tablet 12/17 completed Not Available Not Available Not Available ondansetron HCl 4 mg tablet TAKE 1 TABLET BY MOUTH TWICE A DAY NEEDED FOR NAUSEA/VO MITING 03/19 completed Not Available Not Available Not Available prednisone 20 mg tablet TAKE 1 TABLET BY MOUTH 1 TIME EACH DAY FOR 5 DAYS. 03/19 completed Not Available Not Available Not Available doxycycline hyclate 50 mg capsule TAKE 2 CAPSULES BY MOUTH EVERY 12 HOURS FOR 7 DAYS 03/19 completed Not Available Not Available Not Available ciprofloxac in 250 mg tablet TAKE 1 TABLET BY MOUTH TWICE A DAY 03/19 completed Not Available Not Available Not Available levofloxaci n 250 mg tablet active Not Available Not Available Not Available allopurinol 100 mg tablet TAKE 1 TABLET BY MOUTH EVERY DAY 10/30 completed Not Available Not Available Not Available sulfamethox azole 800 mg-trimetho prim 160 mg tablet 10/30 completed Not Available Not Available Not Available tramadol 50 mg tablet TAKE 1 TABLET BY MOUTH EVERY 12 HOURS NEEDED active Not Available Not Available No t Available triamcinolo ne acetonide 0.1 % topical cream APPLY BY TOPICAL ROUTE EVERY DAY A THIN FILM TO THE AFFECTED SKIN AREAS active Not Available Not Available No t Available hydrocortis one 2.5 % topical cream with perineal applicator APPLY 1 APPLICATI ON EXTERNALL Y TWICE A DAY FOR 10 DAYS active Not Available Not Available No t Available lorazepam 0.5 mg tablet TAKE 1 TABLET BY MOUTH EVERY DAY NEEDED 03/19 completed Not Available Not Available Not Available amlodipine 10 mg tablet active Not Available Not Available Not Available benzonatate 100 mg capsule TAKE 1 CAPSULE BY MOUTH THREE TIMES A DAY FOR 10 DAYS NEEDED active Not Available Not Available No t Available econazole nitrate 1 % topical cream 12/17 completed Not Available Not Available Not Available hyoscyamine sulfate 0.125 mg tablet active Not Available Not Available Not Available buspirone 10 mg tablet TAKE 1 TABLET BY MOUTH TWICE A DAY FOR 30 DAYS active Not Available Not Available No t Available prednisone 50 mg tablet 12/17 completed Not Available Not Available Not Available Qvar 40 mcg/actuati on Metered Aerosol oral inhaler 12/17 completed Not Available Not Available Not Available metoprolol tartrate 50 mg tablet TAKE 1 TABLET BY MOUTH TWICE A DAY WITH MEALS active Not Available Not Available No t Available hydrochloro thiazide 12.5 mg capsule 12/17 completed Not Available Not Available Not Available omeprazole 20 mg capsule,del ayed release TAKE 1 CAPSULE BY MOUTH DAILY 30 MINUTES BEFORE BREAKFAST active Not Available Not Available No t Available Banophen 25 mg capsule PLEASE SEE ATTACHED FOR DETAILED DIRECTION S 12/17 completed Not Available Not Available Not Available montelukast 10 mg tablet 12/17 completed Not Available Not Available Not Available Iophen C-NR 10 mg-100 mg/5 mL oral liquid TAKE 5 TO 10MLS (1 TEASPOON TO 2 TEASPOONS ) BY MOUTH AT BEDTIME NEEDED 12/17 completed Not Available Not Available Not Available hydrochloro thiazide 25 mg tablet take 1 tablet by mouth once daily 03/19 completed Not Available Not Available Not Available mupirocin 2 % topical ointment APPLY 1 APPLICATI ON EXTERNALL Y TWICE A DAY FOR 5 DAYS active Not Available Not Available No t Available furosemide 20 mg tablet TAKE 1 TABLET BY MOUTH EVERYDAY FOR LEG SWELLING active Not Available Not Available No t Available ergocalcife rol (vitamin D2) 1,250 mcg (50,000 unit) capsule 03/19 completed Not Available Not Available Not Available nystatin 100,000 unit/gram topical powder APPLY 1 APPLICATI ON EXTERNALL Y TWICE A DAY FOR 30 DAYS active Not Available Not Available No t Available lorazepam 1 mg tablet Take one tablet the night before and one tablet one hour prior to the procedure . 03/19 completed Not Available Not Available Not Available methylpredn isolone 4 mg tablets in a dose pack active Not Available Not Available Not Available albuterol sulfate HFA 90 mcg/actuati on aerosol inhaler INHALE 1 PUFF 4 TIMES DAILY NEEDED FOR SHORTNESS OF BREATH/WH EEZING FOR 30 DAYS 10/30 completed Not Available Not Available Not Available colchicine 0.6 mg tablet TAKE 1 TABLET BY ORAL ROUTE 3 TIMES EVERY DAY X 1 DAY THEN DECRAESE TO 1 TIME A DAY active Not Available Not Available No t Available ondansetron 4 mg disintegrat ing tablet TAKE 1 TABLET ORALLY EVERY 6 TO 8 HOURS NEEDED FOR NAUSEA AND VOMITING active Not Available Not Available No t Available doxycycline hyclate 100 mg tablet 10/30 completed Not Available Not Available Not Available naproxen 500 mg tablet 12/17 completed Not Available Not Available Not Available cyclobenzap rine 5 mg tablet 12/17 completed Not Available Not Available Not Available bupropion HCl XL 150 mg 24 hr tablet, extended release TAKE 1 TABLET BY MOUTH EVERY DAY IN THE MORNING FOR 30 DAYS active Not Available Not Available No t Available nitrofurant oin monohydrate /macrocryst als 100 mg capsule TAKE 1 CAPSULE BY MOUTH EVERY 12 HOURS WITH FOOD 03/19 completed Not Available Not Available Not Available duloxetine 30 mg capsule,del ayed release TAKE 1 CAPSULE BY MOUTH EVERY DAY 03/19 completed Not Available Not Available Not Available Vitamin D 1 x weekly 03/19 completed Not Available Not Available Not Available fluticasone propionate 45 mcg-salmete rol 21 mcg/actuati on HFA inhaler INHALE 2 PUFFS EVERY 12 HOURS FOR 30 DAYS 03/19 completed Not Available Not Available Not Available ProAir HFA as needed 12/17 completed Not Available Not Available Not Available hydrochloro thiazide 12.5 mg tablet TAKE 1 TABLET BY MOUTH 1 TIME EACH DAY. 03/19 completed Not Available Not Available Not Available amlodipine 10 mg-olmesart an 20 mg tablet TAKE 1 TABLET BY MOUTH EVERY DAY FOR 90 DAYS active Not Available Not Available No t Available amlodipine 10 mg-olmesart an 40 mg tablet TAKE 1 TABLET BY MOUTH EVERY DAY 03/19 completed Not Available Not Available Not Available amlodipine 5 mg-olmesart an 20 mg tablet TAKE 1 TABLET BY MOUTH 1 TIME EACH DAY. 04/12 completed Not Available Not Available Not Available Synvisc-One 48 mg/6 mL intra-artic ular syringe 12/17 completed Not Available Not Available Not Available Suprep Bowel Prep Kit 17.5 gram-3.13 gram-1.6 gram oral solution active Not Available Not Available Not Available Dificid 200 mg tablet TAKE 1 TABLET ORALLY EVERY 12 HOURS FOR 10 DAYS active Not Available Not Available No t Available Trulicity 0.75 mg/0.5 mL subcutaneou s pen injector INJECT 0.75 MG (0.5 ML) SUBCUTANE OUSLY EVERY WEEK 03/19 completed Not Available Not Available Not Available Shingrix (PF) 50 mcg/0.5 mL intramuscul ar suspension, kit [facility] 04/12 completed Not Available Not Available Not Available FreeStyle Ladonna 14 Day Sensor kit CHANGE EVERY 14 DAYS DIRECTED active Not Available Not Available No t Available Flucelvax Quad (PF) 60 mcg (15 mcg x 4)/0.5 mL IM syringe 12/17 completed Not Available Not Available Not Available Flucelvax Quad (PF) 60 mcg (15 mcg x 4)/0.5 mL IM syringe [facility]/12 completed Not Available Not Available Not Available Ozempic 1 mg/dose (4 mg/3 mL) subcutaneou s pen injector INJECT 1 MG UNDER THE SKIN DIRECTED EVERY 7 DAYS active Not Available Not Available No t Available FreeStyle Ladonna 3 Sensor device USE FOR CONTINUOU S BLOOD SUGAR MONITORIN G active Not Available Not Available No t Available Ozempic 0.25 mg or 0.5 mg (2 mg/3 mL) subcutaneou s pen injector INJECT 0.5 MG (0.736 ML) SUBCUTANE OUSLY EVERY WEEK FOR 90 DAYS 07/24 completed Not Available Not Available Not Available Vitals Date Recorded Body height Heart rate Oxygen saturation Oxygen saturation in Arterial blood by Pulse oximetry Systolic blood pressure Diastolic blood pressure Provider Name and Address Organization Details Last Updated DateTime 4 162.56 cm 72 /min 98 % 98 % 122 mm[Hg] 71 mm[Hg] Judith Diaz [facility] 4 11:34:34 Date Recorded Body height Heart rate Oxygen saturation Oxygen saturation in Arterial blood by Pulse oximetry Systolic blood pressure Diastolic blood pressure Provider Name and Address Organization Details Last Updated DateTime 4 162.56 cm 72 /min 96 % 96 % 96 mm[Hg] 59 mm[Hg] Casie manuel [facility] 4 13:39:02 Date Recorded Body height Heart rate Oxygen saturation Oxygen saturation in Arterial blood by Pulse oximetry Systolic blood pressure Diastolic blood pressure Provider Name and Address Organization Details Last Updated DateTime 4 162.56 cm 80 /min 97 % 97 % 112 mm[Hg] 62 mm[Hg] Judith Diaz [facility] 4 13:10:01 Date Recorded Body height Oxygen saturation Oxygen saturation in Arterial blood by Pulse oximetry Heart rate Systolic blood pressure Diastolic blood pressure Provider Name and Address Organization Details Last Updated DateTime 4 162.56 cm 97 % 97 % 88 /min 116 mm[Hg] 63 mm[Hg] Casie Rios o [facility] 4 13:42:06 Date Recorded Body height Heart rate Oxygen saturation Oxygen saturation in Arterial blood by Pulse oximetry Systolic blood pressure Diastolic blood pressure Provider Name and Address Organization Details Last Updated DateTime 4 162.56 cm 82 /min 98 % 98 % 127 mm[Hg] 61 mm[Hg] Judith Diaz [facility] 4 11:08:45 Social History Question Answer Notes LastModified by Organizat ion Details LastModified Time Tobacco Smoking Status Never Smoker Not Available [employer] 01/30/2020 03:16:10 What Is Your Level Of Alcohol Consumption? None [id number] Information not available 01/30/2020 Are You Currently Employed? Yes [id number] Information not available 01/30/2020 Which Illicit Or Recreational Drugs Have You Used? No [id number] Information not available 01/30/2020 Education [employer] Information not available 10/28/2015 What Is Your Occupation? [employer] [id number] Information not available 01/30/2020 Live Alone Or With Others? Alone Information not available 10/28/2015 Marital Status [email or web address] [employer]format[employer] n not available 10/28/2015 Sex: Unknown Functional Status None recorded. Mental Status None recorded. Family History Relationship Description Onset Age of this Age Resolved Age Notes LastModified by Organization Details LastModified Time Father Diabetes mellitus Heart diseas e [email or web address] Not available 11/11/2015 14:33:41 Paternal Grandmother Malignant neoplastic disease Colon [email or web address] Not available 10/15 14:33:41 Mother Malignant neoplastic disease Breast [email or web address] Not available 10/15 14:33:41 Medical History Condition Response Arthritis Y Depression Y Asthma Y Hypertension Y Gynecological HistoryNo gynecological history recorded. Obstetrics History GPAL:G 0 P 0 0 0 0 Immunizations Vaccine Type Date Status Note Provider Nam e and Address Organization Details Recorded Time Novel [id number], all formulations 3 completed [facility] 03/19/2023 11:10:15 Past Encounters Encounter ID Performer Location Encounter Start Date Encounter Closed Date Diagnosis/Indication Diagnosis SNOMED-CT Code Diagnosis ICD10 Code Diagnosis Note [id number] Bridger Soriano MD PAIN OFFICE [address] [facility] [address] [place] [address] 10/28/2015 14:37:49 11/07/2015 19:52:53 Displacement of lumbar intervertebral disc without myelopathy 08430574 M51.26 Knee pain 68773271 M25.5 62 Lumbosacra l spondylosis without myelopathy 81338150 M47.817 Muscle pain 18636029 M79 .1 [id number] Bridger Soriano MD PAIN OFFICE [address] [place] [address] 11/11/2015 13:35:56 11/11/2015 15:14:43 Knee pain 25705679 M25.562 Displaceme nt of lumbar intervertebral disc without myelopathy 45263650 M51.26 Lumbosacra l spondylosis without myelopathy 59525403 M47.817 Muscle pain 86625387 M79 .1 [id number] Bridger Soriano MD PAIN OFFICE [address] [place] [address] 12/18/2019 13:39:18 12/18/2019 16:05:51 Displacement of lumbar intervertebral disc without myelopathy 77675432 M51.26 Lumbosacra l spondylosis without myelopathy 16114910 M47.817 Knee pain 49534818 M25.5 62 Muscle pain 64594483 M79 .18 [id number] Bridger Soriano MD PAIN OFFICE [address] [place] [address] 01/20/2020 14:58:58 01/20/2020 16:09:34 Knee pain 32110793 M25.562 Displaceme nt of lumbar intervertebral disc without myelopathy 42424207 M51.26 Lumbosacra l spondylosis without myelopathy 98620565 M47.817 Muscle pain 97259391 M79 .18 Anxiety 14875229 F41.9 [id number] Bridger Soriano MD PAIN OFFICE [address] [place] [address] 04/12/2020 15:05:36 04/12/2020 15:47:49 Knee pain 71789132 M25.562 Displaceme nt of lumbar intervertebral disc without myelopathy 98109420 M51.26 Lumbosacra l spondylosis without myelopathy 69755696 M47.817 Muscle pain 32909289 M79 .18 Anxiety 61029522 F41.9 [id number] Bridger Soriano MD PAIN OFFICE [address] [place] [address] 04/26/2020 15:03:26 04/27/2020 11:19:16 Knee pain 93117122 M25.562 Displaceme nt of lumbar intervertebral disc without myelopathy 89680773 M51.26 Lumbosacra l spondylosis without myelopathy 97631292 M47.817 Muscle pain 49370639 M79 .18 Anxiety 80082216 F41.9 [id number] Bridger Soriano MD PAIN OFFICE [address] [place] [address] 02/07/2021 15:07:39 02/08/2021 08:55:18 Knee pain 39638761 M25.562 Displaceme nt of lumbar intervertebral disc without myelopathy 20020120 M5. Lumbosacra l spondylosis without myelopathy 98986258 M47.817 Muscle pain 45208268 M79 .18 Anxiety [id number] F41.9 [id number] Bridger Soriano MD PAIN OFFICE [address] [place] [address] 03/24/2021 15:06:19 03/24/2021 15:42:22 Knee pain 18091234 M25.562 Displaceme nt of lumbar intervertebral disc without myelopathy 20020120 M51. Lumbosacra l spondylosis without myelopathy 16717681 M47.817 Muscle pain 29875850 M79 .18 Anxiety 35658244 F41.9 [id number] Bridger Soriano MD PAIN OFFICE [address] [place] [address] 06/07/2021 13:30:02 06/08/2021 08:44:36 Displacement of lumbar intervertebral disc without myelopathy 45904677 M51.26 Lumbosacra l spondylosis without myelopathy 17976537 M47.817 Knee pain 29538512 M25.5 62 Muscle pain 62697883 M79 .18 [id number] Bridger Soriano MD PAIN OFFICE [address] [place] [address] 08/31/2021 14:13:59 09/02/2021 10:35:50 Knee pain 20723086 M25.562 Displaceme nt of lumbar intervertebral disc without myelopathy 35624461 M51.26 Lumbosacra l spondylosis without myelopathy 02609933 M47.817 Muscle pain 64060716 M79 .18 Anxiety 80448800 F41.9 [id number] Bridger Soriano MD PAIN OFFICE [address] [place] [address] 03/19/2023 10:58:59 03/19/2023 15:21:25 Lumbosacral spondylosis without myelopathy 04246717 M47.817 Displaceme nt of lumbar intervertebral disc without myelopathy 76609492 M51.26 Knee pain 69915819 M25.5 62 Muscle pain 22917333 M79 .18 [id number] Bridger Soriano MD PAIN OFFICE [address] [place] [address] 03/21/2023 13:01:27 03/21/2023 14:25:30 Displacement of lumbar intervertebral disc without myelopathy 87647992 M51.26 Lumbosacra l spondylosis without myelopathy 09029925 M47.817 Knee pain 60862074 M25.5 62 Muscle pain 61421137 M79 .18 Lumbar radiculopathy 128 937678 M54.16 [id number] Bridger Soriano MD PAIN OFFICE [address] [place] [address] 04/12/2023 13:30:59 04/12/2023 13:58:00 Knee pain 08160958 M25.562 Osteoarthr itis of knee 194880651 M17.11 [id number] Bridger Soriano MD PAIN OFFICE [address] [place] [address] 07/25/2023 13:26:45 07/25/2023 14:55:44 Osteoarthritis of knee 350689152 M17.11 [id number] Bridger Soriano MD PAIN OFFICE [address] [place] [address] 08/14/2023 11:28:40 08/14/2023 15:55:58 Displacement of lumbar intervertebral disc without myelopathy 52480388 M51.26 Lumbosacra l spondylosis without myelopathy 82893304 M47.817 Knee pain 41206633 M25.5 62 Muscle pain 21182094 M79 .18 Lumbar radiculopathy 128 917220 M54.16 [id number] Bridger Soriano MD PAIN OFFICE [address] [place] [address] 10/31/2023 13:33:33 10/31/2023 16:13:12 Knee pain 95728451 M25.562 Osteoarthr itis of knee 310579357 M17.12 [id number] Bridger Soriano MD PAIN OFFICE [address] [place] [address] 12/11/2023 13:07:11 12/11/2023 14:55:52 Lumbar radiculopathy 531250183 M54.16 Displaceme nt of lumbar intervertebral disc without myelopathy 34643837 M51.26 [id number] Bridger Soriano MD PAIN OFFICE [address] [place] [address] 12/27/2023 13:38:10 12/27/2023 17:06:15 Knee pain 94297729 M25.562 Osteoarthr itis of knee 252528974 M17.11 [id number] Bridger Soriano MD PAIN OFFICE [address] [place] [address] 04/01/2024 11:04:31 04/01/2024 16:59:44 Lumbar radiculopathy 407864517 M54.16 Displaceme nt of lumbar intervertebral disc without myelopathy 22958575 M51.26 Health Concerns Section Related Observation LastModified by Organization Detai ls LastModified Time None Recorded Concern Status LastModified by Organization Details LastModified Time None Recorded Advance Directives Directive None Recorded Payers Encounter Date Sequence Insurance Name Policy Number Policy Tatum Covered Member ID Tatum Member ID Guarantor Name 08/14/2023 1 [place] [facility] [employer]EE PROGRAM [id number] Romanor [id number] [place] Pierce 10/31/2023 1 [place] [address] [place] [id number] [place] 12/11/2023 1 [place] 111 [address] Bar[address] [place] [id number] [employer] [place] 12/27/2023 1 [place] 111 [address] Barrios [place] [id number] [employer] [place] 04/01/2024 1 [place] 111 [address] Barrios [place] [id number] [employer] [place] Notes Date Note Type Note Provider Name and Address Organization Details Recorded Time 08/14/2023 text/html She is here for a lumbar epidural steroid injection under fluoroscopic guidance. Bridger Soriano MD [address] [facility] , [address], [place], [address], [place] [facility] 08/14/2023 16:05:20 10/31/2023 text/html She is here for a left genicular nerve block under fluoroscopic guidance Bridger Soriano MD [address] [facility] , [address], [place], [address], [place] [facility] 11/01/2023 10:27:51 12/11/2023 text/html She is here for a lumbar epidural steroid injection under fluoroscopic guidance. Bridger Soriano MD [address] [facility] , [address], [place], [address], [place] [facility] 12/11/2023 16:04:51 12/27/2023 text/html She is here for a right genicular nerve block under fluoroscopic guidance Bridger Soriano MD [address] [facility] [address], [place], [address], [place] [facility] 12/28/2023 09:59:49 04/01/2024 text/html She is here for a lumbar epidural steroid injection under fluoroscopic guidance. Bridger Soriano MD [address] [facility] , [address], [place], [address], [place] [facility] 04/01/2024 17:08:43 OBGyn Episode No OBEpisode recorded.
--- OUTSIDE RECORDS SUMMARY | 2024-05-24 09:00 | XMS_ITS ---
Author Name [facility] Organization Unknown History of Medication Use Medication Directions Dispensed Refills Start Date End Date Stat Trulicity 0.75 mg/0.5 mL subcutaneous pen injector INJECT 1 PEN ONCE WEEKLY active metoprolol tartrate 50 mg tablet TAKE 1 TABLET BY MOUTH TWICE A DAY WITH MEALS active tramadol 50 mg tablet TAKE 1 TABLET BY MOUTH EVERY 12 HOURS NEEDED 08/15/19 23 completed colchicine 0.6 mg tablet TAKE 1 TABLET BY ORAL ROUTE 3 TIMES EVERY DAY X 1 DAY THEN DECRAESE TO 1 TIME A DAY 08/15/19 23 completed prednisone 20 mg tablet TAKE 1 TABLET BY MOUTH 1 TIME EACH DAY FOR 10 DAYS. 08/15/19 23 completed hydrochlorothiazide 12.5 mg tablet TAKE 1 TABLET BY MOUTH 1 TIME EACH DAY. 08/15/19 23 completed Publiminde 14 Day Sensor kit CHANGE EVERY 14 DAYS DIRECTED 08/15/19 23 active amlodipine 10 mg-olmesartan 20 mg tablet active Allergies Allergen Reaction Severity Comment Documented Date Source Statu s PENICILLINS ENS_AONECT VANCOMYCIN ENS_AONECT Problems Problem Status Onset Date Problem Type Date of Resoluti on Source Osteoarthritis of left knee joint active 2022-08-15 ProblemAct ENS_AONECT Osteoarthritis of right knee joint active 2022-08-15 ProblemAct ENS_AONECT
--- OUTSIDE RECORDS SUMMARY | 2024-05-24 09:00 | XMS_ITS | Clinical Summary ---
Author Organization [facility] Address [address] [place] [address] [address] [place] [address] Phone Care Team Providers Care Kohinoor Operator Name Role Phone Benji Salcedo MD Primary Care Provider [phone] Allergies Active Allergy Reactions Criticality Noted Date Comments Catrachito Inhibitors Other (see comments) 07/21/2020 Cephalexin Other (see comments) 07/21/2020 Clindamycin 07/21/2020 Doxycycline Other (see comments) 07/21/2020 Ibuprofen 07/13/2021 Iodinated Contrast Media Other (see comments) 0 07/21/2020 Latex 07/21/2020 Penicillins Other (see comments) 07/21/2020 Sulfa Antibiotics Other (see comments) 07/22/19 21 Sulfamethoxazole 07/21/2020 Vancomycin 07/21/2020 Medications metoprolol tartrate (LOPRESSOR) 50 MG tablet Take 1 tablet by mouth 2 (two) times a day Active ondansetron ODT (ZOFRAN-ODT) 4 MG dispersible tablet Take 1 tablet by mouth 2 (two) times a day if needed Active triamcinolone (KENALOG) 0.1 % cream triamcinolone acetonide 0.1 % topical cream APPLY BY TOPICAL ROUTE EVERY DAY A THIN FILM TO THE AFFECTED SKIN AREAS Active traZODone (DESYREL) 50 MG tablet Take 50 mg by mouth every night Active diazePAM (VALIUM) 2 MG tablet Take 2 mg by mouth if needed for anxiety Active allopurinol (ZYLOPRIM) 100 MG tablet Take 100 mg by mouth 1 (one) time each day 2 Active Trulicity 0.75 MG/0.5ML solution pen-injector INJECT 1 PEN ONCE WEEKLY 3 Active colchicine 0.6 MG tablet Take 1 tablet by mouth 1 (one) time each day 3 Active amLODIPine-olme sartan (VANITA) 5-20 MG per tablet TAKE 1 TABLET BY MOUTH 1 TIME EACH DAY. 30 tablet 1 3 Active Active Problems Problem Noted Date Diagnosed Date Other acute kidney failure 06/19/2022 Obese class II 07/13/2021 Hypertension 07/13/2021 Acute gout 07/13/2021 Abdominal pain 07/21/2020 Stage 3a chronic kidney disease 07/21/2020 Hypertensive renal disease 07/21/2020 Aneurysm of splenic artery 04/07/2014 Immunizations Name Administration Dates Next Due Influenza, MDCK, PF, Quadrivalent 01/24/2020 Pneumococcal Polysaccharide 04/26/2006 Tdap 07/05/2021 Zoster 01/24/2020 Family History Medical History Relation Comments Diabetes Father Heart disease Father Hypertension Father Stroke Maternal Grandmother Cancer Mother Relation Status Comments Father Maternal Grandmother Mother Social History Tobacco Use Types Packs/Day Years Used Date Smoking Tobacco: Never Smokeless Tobacco: Never Tobacco Cessation:Counseling Given: Not Answered Alcohol Use Standard Drinks/Week Comments Never 0 (1 standard drink = 0.6 oz pur e alcohol) Comments Unknown Sex and Gender Information Value Date Recorded Sex Assigned at Not on file Legal Sex Female 5:18 PM EST Gender Identity Not on file Sexual Orientation Not on file Last Filed Vital Signs Vital Sign Reading Time Taken Comments Blood Pressure 120/70 07/17/2022 4:40 PM EDT Pulse 65 07/17/2022 4:40 PM EDT Temperature - - Respiratory Rate - - Oxygen Saturation 95% 06/19/2022 4:17 PM EST Inhaled Oxygen Concentration - - Weight 101 kg (222 lb) 07/17/2022 4:40 PM EDT Height - - Body Mass Index - - Plan of Treatment Health Maintenance Due Date Last Done Comments Breast Cancer Screening 1955 Colorectal Cancer Screening: Annual FOBT 2003 Colorectal Cancer Screening: Colonoscopy 2003 Colorectal Cancer Screening: Sigmoidoscopy 2003 Pneumococcal Vaccine: 65+ Ye ars (2 of 2 - PCV) 04/26/2007 04/26/2006 Influenza Vaccine (#1) 2023 01/24/2020 Hepatitis B Vaccine Aged Out No longe r eligible based on patient's age to complete this topic Insurance [facility] Care Teams Kohin[place] Operator Relationship Specialty Start Date End Date Benji Salcedo MD [address] [place] [id number] PCP - General 04/26/20
--- NOTE | 2024-05-24 09:04 | ED.GENADULT ---
HPI - General Adult General Chief complaint: Abdominal Pain Stated complaint: E.coli infection Time Seen by Provider: 05/24/24 09:04 Source: patient, RN notes reviewed and old records reviewed Mode of arrival: ambulatory Limitations: no limitations History of Present Illness ED Provider: Tyra OLMSTEAD narrative: Patient is a 68-year-old female with history of C. diff and E. coli infection in January of 2024, HTN, CKD 3, T2DM, splenic artery aneurism, gout presenting to the ED with complaint of diarrhea and abdominal pain for the past 2 weeks. Had a telehealth visit with her PCP who ordered GI panel, patient has results on her phone that she tested positive for E. coli. Reports occasional nausea and vomiting. Denies fevers. Denies hematochezia or melena. MD complaint: abdominal pain, diarrhea Onset (ago): week(s) Location: abdomen Radiation: non-radiation Severity: moderate Quality: aching Pain Consistency: colicky Treatments prior to arrival: none Related Data Home Medications ?Medication ?Instructions ?Recorded ?Confirmed ondansetron 4 mg disintegrating 1 tab PO BID PRN nausea/vomiting 03/16/20 01/02/23 tablet triamcinolone acetonide 0.1 % appl topical DAILY 03/16/20 01/02/23 topical cream [id number]-lpfjivucx-[id number] 3.5 1 appl topical DAILY PRN 11/29/22 01/02/23 mg-10,000 unit-10 mg/gram top cream (Neosporin Plus Pain Relief) metoprolol tartrate 50 mg tablet 25 mg PO BID 02/12/24 Previous Rx's ?Medication ?Instructions ?Recorded buspirone 5 mg tablet 5 mg PO .q am PRN anxiety 30 days 11/29/22 #30 tabs albuterol sulfate 90 mcg/actuation 1 inh inhalation QID PRN shortness 01/02/23 aerosol inhaler (ProAir HFA) of breath or wheezing 30 days #18 grams blood sugar diagnostic (Incentiveuch #200 ea 01/15/23 Verio test strips) blood-glucose meter (Incentiveuch #1 ea 01/15/23 Verio Flex Meter) lancets 33 gauge (OneTouch Delica #200 ea 01/15/23 Plus Lancet) semaglutide 0.25 mg or 0.5 mg (2 0.5 mg (0.736 mL) subcut QWEEK 90 03/14/23 mg/3 mL) subcutaneous pen injector days #9.568 mL (Ozempic) blood-glucose sensor (FreeStyle #6 ea 06/13/23 Ladonna 3 Sensor device) benzonatate 200 mg capsule 200 mg PO BID-TID PRN cough #30 01/12/24 caps ondansetron 4 mg disintegrating 4 mg PO Q6-8H PRN nausea and 02/11/24 tablet vomiting #7 tabs amlodipine 10 mg tablet 10 mg PO DAILY #30 tabs 02/12/24 furosemide 20 mg tablet (Lasix) 20 mg PO DAILY Leg swelling #30 03/07/24 tabs levofloxacin 250 mg tablet 250 mg PO DAILY 7 days #7 tabs 03/07/24 azithromycin 250 mg tablet See Rx Instructions PO .COMPLEX #6 05/24/24 tabs ondansetron 4 mg disintegrating 4 mg PO Q8H PRN nausea and 05/24/24 tablet vomiting #10 tabs Allergies Allergy/AdvReac Type Severity Reaction Status Date / Time Iodinated Contrast Media Allergy Severe SEIZURE Verified 05/24/24 08:48 [IV CONTRAST] vancomycin [VANCOMYCIN] Allergy Severe ITCHING, Verified 05/24/24 08:48 SOB doxycycline [DOXYCYCLINE] Allergy Intermediate DIFFICULTY Verified 05/24/24 08:48 SWALLOWING Penicillins [PENICILLINS] Allergy Intermediate RASH Verified 05/24/24 08:48 cephalexin [From KEFLEX] Allergy Unknown RASH Verified 05/24/24 08:48 Sulfa (Sulfonamide Allergy Unknown UNKNOWN Verified 05/24/24 08:48 Antibiotics) [SULFA (SULFONAMIDE ANTIBIOTICS)] Review of Systems Review of Systems: As per HPI Yes all other systems are reviewed and are negative Constitutional: Constitutional: Reports as per HPI PMFSH Past Medical History Medical History GINA (obstructive sleep apnea) Gout On beta kamar at home Chronic headaches Splenic artery aneurysm Meningioma HTN (hypertension) Surgical History Hx laparoscopic cholecystectomy (~2013) History of hysterectomy History of History of colonoscopy (~08/2018) Family History Family History Father Family hx of colon cancer Mother Hx of breast cancer Paternal Grandmother Colon cancer Social History Social History Household Members: None Housing: House Alcohol intake: never Patient Tobacco Use Status: Never used Tobacco e-Cigarette/Vaping Use: Never Used Advance Directives: No Advance Directives Information Provided: No service: No Cognitive needs: No Hearing needs: No Vision needs: No Physical Exam ED Vital Signs: Vital Signs - 24 hr 05/24/24 08:44 05/24/24 12:27 Temperature 97.4 F 98.2 F Pulse Rate 79 76 Respiratory Rate 16 14 Blood Pressure 146/72 H 93/56 L Pulse Oximetry 100 95 Oxygen Delivery Method Room Air Room Air BMI result Body Mass Index 33.1 Vital signs have been reviewed and appear to be correct. Blood pressure normal. Heart rate normal. Respiratory rate normal. Temperature normal. Oxygen saturation normal. Const General: cooperative, healthy appearing and no acute distress Orientation/consciousness: oriented to person, oriented to place, oriented to time and patient oriented x3 Limitations: no limitations HENMT Head: Yes normocephalic and Yes atraumatic Ears: external ears normal General nose exam: Normal external nose present Face and sinus: Yes face symmetric Mouth: oropharynx normal and moist mucous membranes Throat: Yes uvula midline Eyes Pupils: Equal, round and reactive pupils present Neck Neck: Yes normal visual inspection and Yes supple Resp Effort & Inspection: normal respiratory effort and able to speak in complete sentences Auscultation: clear to auscultation bilaterally Cardio Rate: regular rate Rhythm: regular rhythm Heart sounds: S1 normal heart sound present and S2 normal heart sound present GI Inspection: Yes normal to inspection Palpation (GI): Soft to palpation, Tenderness to palpation present (GI) in the LLQ and in the RLQ, no guarding and No Rebound tenderness present Auscultation: normoactive bowel sounds General: Yes no CVA tenderness Back/Spine/Pelvis Back: no CVA tenderness Skin General skin exam: elasticity normal and turgor normal Neuro General: oriented to person, oriented to place, oriented to time, patient oriented x3, moves all extremities, no focal motor deficits and CN's II-XI intact bilaterally Cranial nerves: Yes Equal, round and reactive pupils present Cognition (Neuro): normal cognition Extrem General: Yes full ROM, Yes no pedal edema and Yes no calf tenderness Psych Mental Status: mental status grossly normal Affect: normal affect Thought process: Normal thought process present Medical Decision Making Medical Decision Making [facility] Narrative: Patient is a 68-year-old female with history of C. diff and E. coli infection in January of 2024, HTN, CKD 3, T2DM, splenic artery aneurism, gout presenting to the ED with complaint of diarrhea and abdominal pain for the past 2 weeks. On exam patient is awake, A+Ox3, VS WNL, afebrile, normal neurological exam without focal deficits, physical exam findings as above. Given reported symptoms and physical exam findings, initial differential includes but is not limited to E. coli, electrolyte abnormality, abscess, perforation, obstruction. Labs notable for no leukocytosis, no anemia, no significant electrolyte abnormalities, BUN at baseline. CT A/P no acute abnormalities of the abdomen/pelvis, mild stranding around bladder. My interpretation is in agreement with the radiologist's interpretation. Given that patient has been symptomatic for over 2 weeks, will treat with azithromycin, will also send prescription for zofran. UA notable for 1+ leukocytes, 6-10 WBCs with 3-5 epithelials, will wait for culture prior to treatment for UTI. Patient instructed to follow up with PCP. Ensure adequate fluid intake, specifically fluids with electrolytes. Return precautions discussed at bedside. Patient verbalized understanding of and agreement with plan. Differential Diagnosis Differential Diagnoses: The differential diagnosis associated with the presentation includes As per [facility] Admission/Observation Consideration of admission/observation: Escalation of care including admission/observation considered Patient would have been admitted to the hospital had their work up had any findings where hospital admission was appropriate and their clinical presentation warranted hospital admission. Lab Data [facility] Lab Attestation statement: I reviewed the patient's lab results. As per [facility] 05/24/24 09:39 05/24/24 09:39 Labs: Lab Results 05/24/24 05/24/24 Range/Units 09:39 14:31 WBC 8.5 (4.8-10.8) X10*3/uL RBC 5.36 (4.20-5.50) X10*6/uL Hgb 14.8 (12.0-16.0) g/dl Hct 43.7 (37.0-47.0) % MCV 81.5 (80.0-98.0) fL MCH 27.6 (27.0-33.0) pg MCHC 33.9 (31.0-35.0) g/dl RDW 13.3 (11.0-16.0) % Plt Count 209 (160-400) X10*3/uL MPV 9.5 (9.4-12.3) fL Immature Gran % (Auto) 0.5 H (0.0-0.4) % Neut % (Auto) 69.9 (45-73) % Lymph % (Auto) 17.2 L (20-40) % [place] % (Auto) 7.9 (2-11) % Eos % (Auto) 3.8 (0-4) % Baso % (Auto) 0.7 (0-2) % Lymph # (Auto) 1.5 (1.2-4.9) X10*3/uL [place] # (Auto) 0.7 (0.1-1.2) X10*3/uL Eos # (Auto) 0.3 (0.0-0.4) X10*3/uL Baso # (Auto) 0.1 (0.0-0.2) X10*3/uL Abs Immat Gran (auto) 0.04 H (0.00-0.03) X10*3/uL Absolute Neuts (auto) 5.9 (2.0-8.3) x10*3/uL Absolute Nucleated RBC 0.000 (0.0-0.012) X10*3/uL Nucleated RBC % (auto) 0.0 (0.0-0.2) /100WBC Sodium 144 (135-145) mmol/L Potassium 4.5 (3.3-5.1) mmol/L Chloride 112 H (96-108) mmol/L Carbon Dioxide 25 (22-29) mmol/L Anion Gap 12 (12-20) BUN 29 H (9-16) mg/dL Creatinine 0.87 (0.5-1.4) mg/dL Estim Creat Clear Calc 65.3 Estimated GFR > 60 Random Glucose 107 (60-115) mg/dL Calcium 9.8 (8.4-10.2) mg/dL Magnesium 1.8 (1.6-2.6) mg/dL Total Bilirubin 0.5 (0.0-1.0) mg/dL AST 24 (5-31) U/L ALT 16 (0-31) U/L Alkaline Phosphatase 67 (39-117) U/L Total Protein 6.4 L (6.5-8.0) g/dL Albumin 3.5 (3.5-5.0) g/dL Urine Color Yellow Urine Appearance Clear Urine pH 7.0 (5.0-9.0) Ur Specific [place] 1.025 (1.005-1.025) Urine Protein Trace (Neg-Trace) mg/dL Urine Glucose (UA) Negative (Negative) mg/dL Urine Ketones Trace (Negative) mg/dL Urine Blood Negative (Negative) Urine Nitrite Negative (Negative) Ur Leukocyte Esterase Small (1+) H (Negative) Urine RBC 0-2 (0-2) /HPF Urine WBC 6-10 H (0-5) /HPF Ur Squamous Epith Cells 3-5 (0-2) /HPF Urine Bacteria None Seen (None Seen) Hyaline Casts 0-2 (0-2) /LPF Independent Interpretation Interpretation: CT abdomen pelvis notable for no acute findings, mild stranding around urinary bladder. Radiology Impression Discussion of test interpretation with radiology: I have reviewed the radiologist's reading. Radiologist Impression: IMPRESSION: No acute findings in the abdomen or pelvis. Mild stranding around the urinary bladder, possibly related to underdistention though correlate clinically for cystitis. Colonic diverticula without diverticulitis. Additional findings as described. External Record Review External record reviewed: Inpatient record, Office record and Outpatient record Prescription Management I considered prescription management with: Antibiotic and Other Discharge Plan Discharge Clinical Impression: E coli infection Patient Disposition: Home, Self-Care Additional Instructions: You are being treated for E. coli with an antibiotic called azithromycin. Complete the full course as prescribed. You are also being prescribed ondansetron which you can take as prescribed for nausea. Be sure to drink adequate fluids, specifically fluids with electrolytes. Follow-up with your primary care provider within 1 week. Return to the emergency department if you develop worsening abdominal pain, fever, persistent vomiting, have blood in your stool or any other new or concerning symptoms. Prescriptions: New ondansetron 4 mg tablet,disintegrating 4 mg PO Q8H PRN (Reason: nausea and vomiting) Qty: 10 0RF azithromycin 250 mg tablet See Rx Instructions .ROUTE .COMPLEX Qty: 6 0RF Rx Instructions: For 250 mg dose pack: take 500 mg today (day 1), then 250 mg for 4 days (days 2-5) No Action (DME) blood-glucose meter [OneTouch Verio Flex meter] Misc See Rx Instructions .Route Qty: 1 0RF Rx Instructions: Use to test blood sugars twice per day (DME) OneTouch Verio test strips Strip See Rx Instructions .Route Qty: 200 1RF Rx Instructions: Use to test blood sugar twice per day (DME) lancets [OneTouch Delica Plus Lancet] 33 gauge misc See Rx Instructions .Route Qty: 200 1RF Rx Instructions: Use to test blood sugar twice per day Ozempic 0.25 mg or 0.5 mg (2 mg/3 mL) pen injector 0.5 mg subcut QWEEK 90 Days Qty: 9.568 2RF (DME) FreeStyle Ladonna 3 Sensor Device See Rx Instructions .Route Qty: 6 1RF Rx Instructions: Use for continuous blood sugar monitoring triamcinolone acetonide 0.1 % cream topical DAILY ondansetron 4 mg tablet,disintegrating 1 tab PO BID PRN (Reason: nausea/vomiting) metoprolol tartrate 50 mg tablet 25 mg PO BID ondansetron 4 mg tablet,disintegrating 4 mg PO Q6-8H PRN (Reason: nausea and vomiting) Qty: 7 0RF Neosporin Plus Pain Relief 3.5-10,000-10 mg-unit-mg/gram cream 1 appl topical DAILY PRN buspirone 5 mg tablet 5 mg PO .q am PRN (Reason: anxiety) 30 Days Qty: 30 0RF albuterol sulfate [ProAir HFA] 90 mcg/actuation HFA aerosol inhaler 1 inh inhalation QID PRN (Reason: shortness of breath or wheezing) 30 Days Qty: 18 0RF amlodipine 10 mg tablet 10 mg PO DAILY Qty: 30 3RF benzonatate 200 mg capsule 200 mg PO BID-TID PRN (Reason: cough) Qty: 30 0RF levofloxacin 250 mg tablet 250 mg PO DAILY 7 Days Qty: 7 0RF furosemide [Lasix] 20 mg tablet 20 mg PO DAILY Qty: 30 6RF Print Language: Mongolian
[2024-05-24 09:54] LABS: Basophils Absolute Auto 0.1 X10*3/uL (0.0-0.2); Basophils Percent Auto 0.7 % (0-2); Eosinophils Absolute Auto 0.3 X10*3/uL (0.0-0.4); Eosinophils Percent Auto 3.8 % (0-4); Hematocrit 43.7 % (37.0-47.0); Hemoglobin 14.8 g/dl (12.0-16.0); Imm Gran Abs Auto 0.04 X10*3/uL (0.00-0.03); Imm Gran Pct Auto 0.5 % (0.0-0.4); Lymphocytes Absolute Auto 1.5 X10*3/uL (1.2-4.9); Lymphocytes Percent Auto 17.2 % (20-40); Mean Corpuscular HGB Conc 33.9 g/dl (31.0-35.0); Mean Corpuscular Hemoglobin 27.6 pg (27.0-33.0); Mean Corpuscular Volume 81.5 fL (80.0-98.0); Mean Platelet Volume 9.5 fL (9.4-12.3); Monocytes Absolute Auto 0.7 X10*3/uL (0.1-1.2); Monocytes Percent Auto 7.9 % (2-11); Neutrophils Absolute Auto 5.9 x10*3/uL (2.0-8.3); Neutrophils Percent Auto 69.9 % (45-73); Red Blood Count 5.36 X10*6/uL (4.20-5.50); Red Cell Distribution Width 13.3 % (11.0-16.0)
[2024-05-24 09:55] LABS: Platelet Count 209 X10*3/uL (160-400); White Blood Count 8.5 X10*3/uL (4.8-10.8)
[2024-05-24 10:09] LABS: Alanine Aminotransferase 16 U/L (0-31); Albumin Level 3.5 g/dL (3.5-5.0); Alkaline Phosphatase 67 U/L (39-117); Anion Gap 12 (12-20); Aspartate Amino Transferase 24 U/L (5-31); Bilirubin Total 0.5 mg/dL (0.0-1.0); Blood Urea Nitrogen 29 mg/dL (9-16); Calcium 9.8 mg/dL (8.4-10.2); Carbon Dioxide 25 mmol/L (22-29); Chloride 112 mmol/L (96-108); Creatinine Clr Calc Pharmacy 65.3; Estimated Glomerular Filt Rate > 60; Glucose Random 107 mg/dL (60-115); Magnesium 1.8 mg/dL (1.6-2.6); Potassium 4.5 mmol/L (3.3-5.1); Sodium 144 mmol/L (135-145); Total Protein 6.4 g/dL (6.5-8.0)
[2024-05-24 12:27] VITALS: BP 93/56; PULSE 76; RESP 14; TEMP 36.8; O2SAT 95
[2024-05-24 14:51] LABS: Appearance Urine Clear; Color Urine Yellow; Glucose Urine UA Negative (Negative); Leukocyte Esterase Urine Small (1+) (Negative); Nitrite Urine Negative (Negative); Specific Gravity - Urine 1.025 (1.005-1.025); UMIC TRIGGER UACC YES; Urine Blood Negative (Negative); Urine Ketones Trace mg/dL (Negative); Urine Protein Trace mg/dL (Neg-Trace)
[2024-05-24 14:53] LABS: Bacteria Urine None Seen (None Seen); Hyaline Casts Urine 0-2 /LPF (0-2); RBC Urine 0-2 /HPF (0-2); UACC Culture Trigger YES
[2024-05-24 14:55] VITALS: BP 112/62; PULSE 67; RESP 20; TEMP 36.4; O2SAT 99
[2024-05-24 15:04] VITALS: BP 112/62; PULSE 67; RESP 20; TEMP 36.4; O2SAT 99
== END 2024-05-24 15:10 | disposition home or self-care (01) ==
PROVIDERS: Registered Nurse Emergency; Emergency Provider Emergency Medicine; PCP Internal Medicine
DX: K57.30 Diverticulosis of large intestine without perforation or abscess without bleeding (principal); B96.20 Unspecified Escherichia coli [E. coli] as the cause of diseases classified elsewhere; R10.9 Unspecified abdominal pain; E10.22 Type 1 diabetes mellitus with diabetic chronic kidney disease; I12.9 Hypertensive chronic kidney disease with stage 1 through stage 4 chronic kidney disease, or unspecified chronic kidney disease; N18.30 Chronic kidney disease, stage 3 unspecified; E78.5 Hyperlipidemia, unspecified; Z86.19 Personal history of other infectious and parasitic diseases
CPT/HCPCS: 36415; 74176; 80053; 81001; 83735; 85025; 87086; 99284

== ENCOUNTER → 2024-05-24 10:48 | Outpatient (BNV) | payer BC, SELFPAY | PROVIDERS: Emergency Provider Emergency Medicine; PCP Internal Medicine; Visit Provider Radiology Diagnostic Radiology | DX: R10.819 Abdominal tenderness, unspecified site (principal) | CPT/HCPCS: 74176 ==

== ENCOUNTER 2024-06-17 08:38 | Outpatient (AMB) | payer BC, SELFPAY ==
--- NOTE | 2024-06-17 08:49 | MHC.OFFVIS ---
Vital Signs 06/17/24 08:54 Height 5 ft 4 in Weight 196 lb BMI 33.6 BP 87/55 L Blood Pressure Location Lt brachial Position Sitting Pulse 77 Pulse Oximetry (%) 98 Oxygen Delivery Method Room Air Intake Visit Reasons: stomach pain/ darlyn 2020 Intake Note: New consult for stomach pain, darlyn was 2020. Patient cc: No BM x a week and when she have a BM is really painful with abdominal pain, some swallowing problems, tiredness, denies any other GI issues. Lap Hand Tool Required: No Accompanied by: Self / Same As Patient Allergies Iodinated Contrast Media [IV CONTRAST] Allergy (Severe, Verified 06/17/24 08:49) SEIZURE vancomycin [VANCOMYCIN] Allergy (Severe, Verified 06/17/24 08:49) ITCHING, SOB doxycycline [DOXYCYCLINE] Allergy (Intermediate, Verified 06/17/24 08:49) DIFFICULTY SWALLOWING Penicillins [PENICILLINS] Allergy (Intermediate, Verified 06/17/24 08:49) RASH cephalexin [From KEFLEX] Allergy (Unknown, Verified 06/17/24 08:49) RASH Sulfa (Sulfonamide Antibiotics) [SULFA (SULFONAMIDE ANTIBIOTICS)] Allergy (Unknown, Verified 06/17/24 08:49) UNKNOWN Medication List - Last Reconciled 06/17/24 by Reny Munson MD amlodipine 10 mg PO DAILY blood sugar diagnostic (Punch [employer]Touch Verio test strips) Use to test blood sugar twice per day blood-glucose meter ([employer] Verio Flex Meter) Use to test blood sugars twice per day blood-glucose sensor (FreeStyle Ladonna 3 Sensor device) Use for continuous blood sugar monitoring buspirone 5 mg PO .q am PRN 30 days furosemide (Lasix) 20 mg PO DAILY lancets ([employer] Delica Plus Lancet) Use to test blood sugar twice per day metoprolol tartrate 25 mg PO BID kwglbmwn-plzikdcbr-pjpdeiskb 3.5-10,000-10 mg-unit-mg/gram (Neosporin Plus Pain Relief) 1 appl topical DAILY PRN ondansetron 4 mg PO Q8H PRN semaglutide (Ozempic) 0.5 mg (0.736 mL) subcut QWEEK 90 days tramadol 50 mg PO BEDTIME triamcinolone acetonide 0.1% appl topical DAILY HPI HPI stomach pain/ darlyn 2020: Details: GI CLINIC VISIT FOR THIS 69-YEAR-OLD FEMALE FOR FOLLOW-UP OF A CHANGE IN BOWEL HABITS. Pt was last seen on 06/10/20 05/24/24 PT WAS SEEN AT [facility] ED: Patient is a 68-year-old female with history of C. diff and E. coli infection in January of 2024, HTN, CKD 3, T2DM, splenic artery aneurism, gout presenting to the ED with complaint of diarrhea and abdominal pain for the past 2 weeks. On exam patient is awake, A+Ox3, VS WNL, afebrile, normal neurological exam without focal deficits, physical exam findings as above. Given reported symptoms and physical exam findings, initial differential includes but is not limited to E. coli, electrolyte abnormality, abscess, perforation, obstruction. Labs notable for no leukocytosis, no anemia, no significant electrolyte abnormalities, BUN at baseline. CT A/P no acute abnormalities of the abdomen/pelvis, mild stranding around bladder. My interpretation is in agreement with the radiologist's interpretation. Given that patient has been symptomatic for over 2 weeks, will treat with azithromycin, will also send prescription for zofran. UA notable for 1+ leukocytes, 6-10 WBCs with 3-5 epithelials, will wait for culture prior to treatment for UTI. Patient instructed to follow up with PCP. Ensure adequate fluid intake, specifically fluids with electrolytes. Return precautions discussed at bedside. CHRONIC ILLNESSES: Mixed hyperlipidemia, GINA - doesn't use CPAP, Benign Essential HTN, GERD Prediabetes, meningioma, headaches TODAY'S VISIT Patient cc: No BM x a week and when she have a BM is really painful with abdominal pain, some swallowing problems, tiredness, Had C Diff and E Coli in 01/2024 and was treated. Retreated for E Coli in May and retested for E Coli - negative Last episode of diarrhea was Jun 11 and no BM since. Also passing very little gas Taking Probiotics from [employer] which has been helping. Started taking Ozempic 2 years ago in November - had nausea and diarrhea when she started and symptoms have improved since PAST VISIT: At work at present and waiting to get the COVID vaccine. Started taking probiotics (Probitoics for colon health from [employer]) with improvement in diarrhea, abdominal pain and cramps. She has noted a ton of gas and stools appear to float on the toilet water. Admitted to the hospital with dehydration last February after her dog of splenic rupture. Appetite fluctuates and she lost a little bit of weight (weighs 230 lbs - decreased from 235 lbs a year ago) I have not eaten much so the diarrhea stopped. Drinking some fluids - had a few crackers and soda. Had some cranberry juice. Thinks she has an infection. Diarrhea started last Sunday and lasted till Sunday. Has not had a BM since then since she is eating very little. Had bouts of constipation 3 weeks ago Had a small BM when she was able to go. Did not take any laxatives. Noted some blood on wiping yesterday. Feels depressed since her dog last Sunday - had him since 04/2009. Got tested and was negative for COVID 19 infection (several people at work got infected) Rectal bleeding for the past 3 weeks which has stopped now. Saw Dr Fregoso yesterday for hemorrhoids Complains of intermittent periumblical abdominal cramps and had to moffett to the bathroom. Not related to diet. Avoids fatty food. Having 1-2 BMs a day (unchanged). Abdominal pain resolves after the BM. Denies diarrhea Stools are not hard and usually on the softer. Taking Miralax once a day and citrucil once a day. Denies change in diet or recent antibiotics. Gets a CT scan every yr for FU of a splenic aneurysm (has been stable) LABS IN [facility]: 11/29/18 Reviewed - AST 32, ALT 46 (improved from 38 & 51 in 01/01) IMAGING STUDIES: 09/12/[address] SCAN SHOWED: 1. No bowel obstruction, free intraperitoneal air or abscesses. This no appendicitis or diverticulitis. 2. No urinary calculus or obstructive uropathy. 3. There is bilateral renal cortical atrophy. The a small low attenuation bilateral renal probable cysts, too small to fully characterize with CT. These are of doubtful clinical significance. If clinically indicated (i.e. History of hematuria known malignancy), these can be more fully evaluated with ultrasound or MRI. 4. There is hepatic steatosis. 5. The gallbladder and uterus are surgically absent. 6. There are degenerative changes of the thoracolumbar spine, most pronounced at L2-L3. 12/02 Abd US showed: Liver of diffuse increased echogenicity. This is nonspecific, but consistent with diffuse fatty infiltration. Status post cholecystectomy. 6 mm echogenic focus within the interpole region likely corresponding to a nonobstructive calculus. ENDOSCOPIC STUDIES: Pt had a colonoscopy on 09/06/18: Four polyps removed Moderate diverticulosis seen in the left colon Large hemorrhoids on retroflexed exam - likely source of rectal bleeding. Plan: Await pathology results Patient has an appointment on 09/20/18 in the GI Clinic with Reny Munson M.D. Repeat Colonoscopy interval based on path results in 3-5 years if polyps are adenomatous and 5 years if polyps are hyperplastic (history of large hyperplastic polyps on previous colonoscopy). Above findings were reviewed with the patient and colon polyps, diverticulosis and hemorrhoids handouts were given in the discharge area. Patient was advised to continue with rectal cream and take citrucil daily instead of prn. A. Colon, ascending, polypectomy: Tubular adenoma; no high grade dysplasia or carcinoma seen. B. Colon, transverse, polypectomy: Hyperplastic mucosal polyp. C. Colon, sigmoid, polypectomy: Hyperplastic mucosal polyps. [facility] Medical History GINA (obstructive sleep apnea) Gout On beta kamar at home Chronic headaches Splenic artery aneurysm Meningioma HTN (hypertension) Surgical History Hx laparoscopic cholecystectomy (~2013) History of hysterectomy History of History of colonoscopy (~08/2018) Family History Father Family hx of colon cancer Mother Hx of breast cancer Paternal Grandmother Colon cancer Social History Household Members: None Housing: House Alcohol intake: never Patient Tobacco Use Status: Never used Tobacco e-Cigarette/Vaping Use: Never Used service: No Cognitive needs: No Hearing needs: No Vision needs: No Review of Systems Const Reports fatigue and Reports headache(s) ENT Reports dysphagia, Reports headache(s) and Reports odynophagia GI Reports abdominal pain, Reports constipation, Reports dysphagia, Reports early satiety, Reports diarrhea, Reports nausea and Reports odynophagia Musc Reports arthralgias and Reports other (arthritis) Neuro Reports headache(s) Psych Reports depression Endo Reports fatigue Physical Exam Vital Signs: Last Vital Signs Pulse 77 06/17/24 08:54 BP 87/55 L 06/17/24 08:54 Pulse Ox 98 06/17/24 08:54 Oxygen Delivery Method Room Air 06/17/24 08:54 BMI result Body Mass Index 33.6 Const General: healthy appearing and no acute distress Nutritional Appearance: average body habitus Orientation/consciousness: patient oriented x3 Limitations: no limitations HEENT Head: Yes normal to inspection Ears: hearing grossly normal bilaterally Mouth: Normal oral and palatal mucosa present Eyes Sclerae: sclerae normal Pupils: Equal, round and reactive pupils present Neck Neck: Yes normal visual inspection Chest Chest palpation & inspection: normal inspection of the chest Resp Effort & Inspection: normal respiratory effort Auscultation: clear to auscultation bilaterally Cardio Palpation: normal PMI Rate: regular rate Rhythm: regular rhythm Heart sounds: S1 normal heart sound present, S2 normal heart sound present and no murmurs GI Palpation (GI): Soft to palpation, nontender and No hepatosplenomegaly present Auscultation: normal bowel sounds Rectal Exam - Female: deferred Skin General skin exam: no rashes or lesions noted Neuro General: patient oriented x3, gait normal and moves all extremities Cranial nerves: Yes Equal, round and reactive pupils present Psych Appearance: grossly normal Mental Status: mental status grossly normal Assessment & Plan Assessment & Plan (1) Chronic diarrhea: Code(s): K52.9 - Noninfective gastroenteritis and colitis, unspecified Category: Medical (2) Lower abdominal pain: Code(s): R10.30 - Lower abdominal pain, unspecified Category: Medical (3) Rectal bleeding: Code(s): K62.5 - Hemorrhage of anus and rectum Category: Medical (4) NAFL (nonalcoholic fatty liver): Code(s): K76.0 - Fatty (change of) liver, not elsewhere classified Category: Medical (5) History of colon polyps: Comment: 08/2018 Patient has adenomatous and large hyperplastic colon polyps (can be pre-malignant) removed during and was advised to schedule a FU colonoscopy in 3 yrs - due in 09/04. 09/2021 COLONOSCOPY SHOWED: Colonoscopy Findings: Three polyps removed, a fourth hyperplastic appearing polyp was biopsied. Random biopsies were obtained from the right colon to check for microscopic colitis Moderate diverticulosis seen in the left colon Moderate hemorrhoids on retroflexed exam. Plan: Repeat colonoscopy in years. Code(s): Z86.010 - Personal history of colon polyps Category: Medical (6) Constipation: Code(s): K59.00 - Constipation, unspecified Category: Medical Plan 69 YF with Mixed hyperlipidemia, GINA - doesn't use CPAP, Benign Essential HTN, GERD, Prediabetes, meningioma, headaches here for evaluation of a change in bowel habits for the past 11-12 months. Symptoms started after a possible episode of food poisoning lasting a few weeks after she ate at [employer]. Per patient stool tests performed by her PCP were negative for bacteria, parasites and C Diff. She complains of intermittent lower abd pain associated with an urge to have a BM followed by resolution of abdominal pain. She also has intermittent constipation. 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 Symptoms have improved with probiotics. Patient had persistant rectal bleeding from hemorrhoids x 3 weeks and bleeding has now resolved. 08/[address] scan showed bilateral renal cortical atrophy. The a small low attenuation bilateral renal probable cysts - pt is followed by Nephrology (Dr Ocasio ) Elevated LFTs are likely due to fatty liver associated with morbid obesity. LFTS have improved. Abdominal ultrasound confirmed presence of fatty liver - patient is advised to work on weight reduction. 06/17/24 Had C Diff and E Coli in 01/2024 and was treated. Retreated for E Coli in May and retested for E Coli - negative Last episode of diarrhea was Jun 11 and no BM since. Also passing very little gas Taking Probiotics from [employer] which has been helping. Pt advised to take Senna+ colace - 2 tab/cap at bedtime Advised to call if her symptoms persist Follow-up in GI in 4 months. Medications: New sennosides-docusate sodium 8.6-50 mg (Senna with Docusate Sodium) Please take every other day at bedtime 2 tab-caps (2 x 8.6-50 mg) PO BEDTIME 60 days 120 tabs 2RF K59.00 - Constipation, unspecified sennosides-docusate sodium 8.6-50 mg (Senna with Docusate Sodium) Please take every other day at bedtime 2 tab-caps (2 x 8.6-50 mg) PO BEDTIME 120 tabs 2RF 60 days K59.00 - Constipation, unspecified Coding Level of Care Code Est Pt Level 4 (90805) Diagnoses Chronic diarrhea K52.9 Lower abdominal pain R10.30 Rectal bleeding K62.5 NAFL (nonalcoholic fatty liver) K76.0 History of colon polyps Z86.010 Constipation K59.00 Time Spent (min) 21
[2024-06-17 08:54] VITALS: BP 87/55; PULSE 77; O2SAT 98; BMI 33.6
--- OUTSIDE RECORDS SUMMARY | 2024-06-17 09:13 | XMS_ITS | Data Portability ---
Author Organization [facility] PAIN [facility] Address [address] [facility] [address] [place] [address] Care Team Providers Care Director Semiconductor Name Role Phone HELENE QUEZADA Primary Care Provider [phone] Assessment Encounter Date Assessment Date Assessment LastModified [...] [email or web address] Not available 12/11/2023 13:32:07 12/27/2023 12/27/2023 Belgcia Pierce is a 68 year old woman [...] By Organization Details Last Modified Time 10/31/2023 [id number] She was advised against bed rest lasting longer than four days and to continue activities as tolerated. [email or web address] Not available 10/31/2023 14:07:55 12/11/2023 50496 She is a diabetic? ? ?. Blood sugar levels may temporarily increase after steroid injections. She was advised to check? ? ? blood glucose levels three times a day post procedure. If? ? ? levels are above 250, she was advised to contact? ? ?the PCP. [email or web address] Not available 12/11/2023 13:32:29 12/27/2023 36104 She was advised against bed rest lasting longer than four days and to continue activities as tolerated. [email or web address] Not available 12/27/2023 16:33:20 04/01/2024 86991 She is a diabetic? ? ?. Blood sugar levels may temporarily increase after steroid injections. She was advised to check? ? ? blood glucose levels three times a day post procedure. If? ? ? levels are above 250, she was advised to contact? ? ?the PCP. [email or web address] Not available 04/01/2024 16:41:21 Reason for Referral None Reported. Problems Name Problem SNOMED Code Status Onset Date Resolution Date Notes Provider Name and Address Organization Details Recorded Time Knee pain Active Bridger dan MD [address] , [address], [place], [address], [place] [facility] 6 14:37:23 Displacement of lumbar intervertebral disc without myelopathy 17132467 Active Bridger dan MD [address] , [facility] [address], [place], [address], [place] [facility] 6 14:37:23 Lumbosacral spondylosis without myelopathy 37363158 Active Bridger dan MD [address] , [address], [place], [address], [place] [facility] 6 14:37:23 Muscle pain 50401550 Active Bridger dan MD [address] , [address], [place], [address], [place] [facility] 6 14:37:23 Problem Notes None recorded. Procedures Surgical History Date Name Laterality Status Provider Name and Address Organization Details Recorded Time 04/01/20 24 Lumbar Epidural steroid injection under fluoroscopic guidance completed Bridger Soriano MD [address] , [address], [place], [address], [place] [facility] 04/01/2024 16:41:47 12/27/19 24 Genicular Nerve block completed Bridger Soriano MD [address] , [address], [place], [address], [place] [facility] 12/27/2023 16:34:14 12/11/19 24 Lumbar Epidural steroid injection under fluoroscopic guidance completed Bridger Soriano MD [address] , [address], [place], [address], [place] [facility] 12/11/2023 13:31:06 10/31/19 24 Genicular Nerve block completed Bridger Soriano MD [address] , [address], [place], [address], [place] [facility] 10/31/2023 14:08:55 08/14/19 24 Lumbar Epidural steroid injection under fluoroscopic guidance completed Bridger Soriano MD [address] , [address], [place], [address], [place] [facility] 08/14/2023 13:19:15 07/25/19 24 Genicular Nerve block completed Bridger Soriano MD [address] , [address], [place], [address], [place] [facility] 07/25/2023 14:26:15 04/12/20 23 Intra-articular Knee Steroid Injection completed Bridger Soriano MD [address] , [address], [place], [address], [place] [facility] 04/12/2023 13:55:40 03/21/20 23 Lumbar Epidural steroid injection under fluoroscopic guidance completed Bridger Soriano MD [address] , [address], [place], [address], [place] [facility] 03/21/2023 13:28:50 09/01/19 22 Intra-articular Knee Steroid Injection completed Bridger Soriano MD [address] , [address], [place], [address], [place] [facility] 09/02/2021 10:34:04 06/07/19 22 Lumbar Epidural steroid injection under fluoroscopic guidance completed Bridger Soriano MD [address] , [address], [place], [address], [place] [facility] 06/08/2021 08:41:03 03/24/20 21 Intra-articular Knee Steroid Injection completed Bridger Soriano MD [address] , [address], [place], [address], [place] [facility] 03/24/2021 15:38:55 02/08/20 21 Intra-articular Knee Steroid Injection completed Bridger Soriano MD [address] , [address], [place], [address], [place] [facility] 02/08/2021 08:53:02 04/12/20 20 Intra-articular Knee Steroid Injection completed Bridger Soriano MD [address] , [address], [place], [address], [place] [facility] 04/12/2020 15:35:24 01/20/20 20 Intra-articular Knee Steroid Injection completed Bridger Soriano MD [address] , [address], [place], [address], [place] [facility] 01/20/2020 15:28:58 11/11/19 16 Intra-articular Knee Steroid Injection completed Bridger Soriano MD [address] , [address], [place], [address], [place] [facility] 11/11/2015 14:57:23 04/16/19 14 Cholecystectomy completed Elenaaltaf Ramirez [place] [facility] 10/28/2015 15:23:45 Hysterectomy completed Elena Ramirez [place] [facility] 10/28/2015 15:23:45 Caesarean Section completed Elena Ramirez [place] [facility] 10/28/2015 15:23:45 Imaging Results None recorded. Procedure Notes None recorded. Medical Equipment None Reported. Allergies Allergen ID Allergen Name Allergen Category Reaction Reaction Severity Criticality Documentation Date Start Date Code Code System Note Provider Name and Address Organization Details Recorded Time 80422 Product containin g penicilli n (product) medicatio n rash Not available Not available 10/28/2015 74054 8001 SNOMED Eelna hutchison, [place] [facility] 6 15:23:45 73703 Keflex medicatio n Not available Not available Not available 10/28/2015 7 RxNorm Facia l SweLL ING Judith hutch[place], [place] [facility] 2 14:17:48 51167 vancomyci n medicatio n Not available Not available Not available 10/28/2015 31026 RxNorm Elena hutchison [facility] 6 15:23:45 48643 Iodinated contrast media (substanc e) medicatio n other Not available Not available 10/28/2015 36536 2004 SNOMED Right arm tremo rs Elena hutchison [facility] 6 15:23:45 Medications Name Sig [...] mcg/0.5 mL intramuscul ar suspension, kit [facility] 04/12 completed Not Available Not Available Not Available FreeStyle Ladonna 14 Day Sensor kit CHANGE EVERY 14 DAYS DIRECTED active Not Available Not Available No t Available Flucelvax Quad (PF) 60 mcg (15 mcg x 4)/0.5 mL IM syringe 12/17 completed Not Available Not Available Not Available Flucelvax Quad (PF) 60 mcg (15 mcg x 4)/0.5 mL IM syringe [facility] 04/12 completed Not Available Not [...] 96 % 96 mm[Hg] 59 mm[Hg] Casie Rios o [place] [facility] 4 13:39:02 [...] Is Your Level Of Alcohol Consumption? None [id number] Information not available 01/30/2020 Are You Currently Employed? Yes [id number] Information not available 01/30/2020 Which Illicit Or Recreational Drugs Have You Used? No [id number] Information not available 01/30/2020 Education [employer] Information not available 10/28/2015 What Is Your Occupation? [employer] [id number] Information not available 01/30/2020 Live Alone Or [...] 14:33:41 Medical History Condition Response Arthritis Y Hypertension Y Depression Y Asthma Y Gynecological HistoryNo gynecological history recorded. Obstetrics History GPAL:G 0 P 0 0 0 0 Immunizations Vaccine Type Date Status Note Provider Nam e and Address Organization Details Recorded Time Novel Ejvneaxdc-F2S6-40, all formulations 3 completed Sunni hutchison [place] [facility] 03/19/2023 11:10:15 Past Encounters Encounter ID Performer Location Encounter Start Date Encounter Closed Date Diagnosis/Indication Diagnosis SNOMED-CT Code Diagnosis ICD10 Code Diagnosis Note [id number] Bridger Soriano MD PAIN OFFICE [address] [facility],[address] [place] [address] 10/28/2015 14:37:49 11/07/2015 19:52:53 Displacement of lumbar intervertebral disc without myelopathy 77887171 M51.26 Knee pain 29928367 M25.5 62 Lumbosacra l spondylosis without myelopathy 01040561 M47.817 Muscle pain 74165758 M79 .1 [id number] Bridger Soriano MD PAIN OFFICE [address] [place] [address] 11/11/2015 13:35:56 11/11/2015 15:14:43 Knee pain 79898672 M25.562 Displaceme nt of lumbar intervertebral disc without myelopathy 48746365 M51.26 Lumbosacra l spondylosis without myelopathy 63110533 M47.817 Muscle pain 87542208 M79 .1 [id number] Bridger Soriano MD PAIN OFFICE [address] [place] [address] 12/18/2019 13:39:18 12/18/2019 16:05:51 Displacement of lumbar intervertebral disc without myelopathy 16012406 M51.26 Lumbosacra l spondylosis without myelopathy 53742258 M47.817 Knee pain 29232206 M25.5 62 Muscle pain 81573598 M79 .18 [id number] Bridger Soriano MD PAIN OFFICE [address] [place] [address] 01/20/2020 14:58:58 01/20/2020 16:09:34 Knee pain 76451637 M25.562 Displaceme nt of lumbar intervertebral disc without myelopathy 41341020 M51.26 Lumbosacra l spondylosis without myelopathy 59375068 M47.817 Muscle pain 30236575 M79 .18 Anxiety 70138549 F41.9 [id number] Bridger Soriano MD PAIN OFFICE [address] [place] [address] 04/12/2020 15:05:36 04/12/2020 15:47:49 Knee pain 12346346 M25.562 Displaceme nt of lumbar intervertebral disc without myelopathy 27496798 M51.26 Lumbosacra l spondylosis without myelopathy 66808655 M47.817 Muscle pain 90444335 M79 .18 Anxiety 78406579 F41.9 [id number] Bridger Soriano MD PAIN OFFICE [address] [place] [address] 04/26/2020 15:03:26 04/27/2020 11:19:16 Knee pain 23401586 M25.562 Displaceme nt of lumbar intervertebral disc without myelopathy 73728251 M51.26 Lumbosacra l spondylosis without myelopathy 64984305 M47.817 Muscle pain 61390108 M79 .18 Anxiety 37867952 F41.9 [id number] Bridger Soriano MD PAIN OFFICE [address] [facility] [place] [address] 02/07/2021 15:07:39 02/08/2021 08:55:18 Knee pain 02604143 M25.562 Displaceme nt of lumbar intervertebral disc without myelopathy 83697232 M51.26 Lumbosacra l spondylosis without myelopathy 37812144 M47.817 Muscle pain 57088589 M79 .18 Anxiety 33205687 F41.9 [id number] Bridger Soriano MD PAIN OFFICE [address] [place] [address] 03/24/2021 15:06:19 03/24/2021 15:42:22 Knee pain 72286691 M25.562 Displaceme nt of lumbar intervertebral disc without myelopathy 20020120 M51.26 Lumbosacra l spondylosis without myelopathy 89319959 M47.817 Muscle pain 71064573 M79 .18 Anxiety 49207141 F41.9 [id number] Bridger Soriano MD PAIN OFFICE [address] [place] [address] 06/07/2021 13:30:02 06/08/2021 08:44:36 Displacement of lumbar intervertebral disc without myelopathy 73804504 M51.26 Lumbosacra l spondylosis without myelopathy 59809232 M47.817 Knee pain 13197545 M25.5 62 Muscle pain 02079429 M79 .18 [id number] Bridger Soriano MD PAIN OFFICE [address] [facility] [place] [address] 08/31/2021 14:13:59 09/02/2021 10:35:50 Knee pain 60297653 M25.562 Displaceme nt of lumbar intervertebral disc without myelopathy 97989019 M51.26 Lumbosacra l spondylosis without myelopathy 03273582 M47.817 Muscle pain 53813028 M79 .18 Anxiety 40149478 F41.9 [id number] Bridger Soriano MD PAIN OFFICE [address] [place] [address] 03/19/2023 10:58:59 03/19/2023 15:21:25 Lumbosacral spondylosis without myelopathy 73112604 M47.817 Displaceme nt of lumbar intervertebral disc without myelopathy 83022285 M51.26 Knee pain 96632245 M25.5 62 Muscle pain 35234588 M79 .18 [id number] Bridger Soriano MD PAIN OFFICE [address] [place] [address] 03/21/2023 13:01:27 03/21/2023 14:25:30 Displacement of lumbar intervertebral disc without myelopathy 09833858 M51.26 Lumbosacra l spondylosis without myelopathy 09805300 M47.817 Knee pain 48908691 M25.5 62 Muscle pain 92811663 M79 .18 Lumbar radiculopathy 128 026664 M54.16 [id number] Bridger Soriano MD PAIN OFFICE [address] [place] [address] 04/12/2023 13:30:59 04/12/2023 13:58:00 Knee pain 20620798 M25.562 Osteoarthr itis of knee 663122406 M17.11 [id number] Bridger Soriano MD PAIN OFFICE [address] [place] [address] 07/25/2023 13:26:45 07/25/2023 14:55:44 Osteoarthritis of knee 162592465 M17.11 [id number] Bridger Soriano MD PAIN OFFICE [address] [place] [address] 08/14/2023 11:28:40 08/14/2023 15:55:58 Displacement of lumbar intervertebral disc without myelopathy 02226707 M51.26 Lumbosacra l spondylosis without myelopathy 58266148 M47.817 Knee pain 12333228 M25.5 62 Muscle pain 94951998 M79 .18 Lumbar radiculopathy 128 259466 M54.16 [id number] Bridger Soriano MD PAIN OFFICE [address] [facility] [place] [address] 10/31/2023 13:33:33 10/31/2023 16:13:12 Knee pain 48636392 M25.562 Osteoarthr itis of knee 333483962 M17.12 [id number] Bridger Soriano MD PAIN OFFICE [address] [facility] [place] [address] 12/11/2023 13:07:11 12/11/2023 14:55:52 Lumbar radiculopathy 799771770 M54.16 Displaceme nt of lumbar intervertebral disc without myelopathy 21841458 M51.26 [id number] Bridger Soriano MD PAIN OFFICE [address] [facility] [place] [address] 12/27/2023 13:38:10 12/27/2023 17:06:15 Knee pain 94532093 M25.562 Osteoarthr itis of knee 001309968 M17.11 [id number] Bridger Soriano MD PAIN OFFICE [address] [facility] [place] [address] 04/01/2024 11:04:31 04/01/2024 16:59:44 Lumbar radiculopathy 421346790 M54.16 Displaceme nt of lumbar intervertebral disc without myelopathy 80363556 M51.26 Health Concerns Section Related Observation LastModified by Organization Detai ls LastModified Time None Recorded Concern Status LastModified by Organization Details LastModified Time None Recorded Advance Directives Directive None Recorded Payers Encounter Date Sequence Insurance Name Policy Number Policy Tatum Covered Member ID Tatum Member ID Guarantor Name 08/14/2023 1 [place] [employer] [address] [place] [id number] Belgica Pierce 10/31/2023 1 [place] [address] [place] [id number] Bel[place]ica [place] 12/11/2023 1 [place] [address] [place] [id number] Bel[place]ica [place] 12/27/2023 1 [place] [address] [place] [id number] Bel[place]ica [place] 04/01/2024 1 [place] [address] [place] [id number] Bel[place]ica [place] Notes Date Note Type Note Provider Name and Address Organization Details Recorded Time 08/14/2023 text/html She is here for a lumbar epidural steroid injection under fluoroscopic guidance. Bridger Soriano MD [address] [facility] , [address], [place], [address], [place] [facility] 08/14/2023 16:05:20 10/31/2023 text/html She is here for a left genicular nerve block under fluoroscopic guidance Bridger Soriano MD [address] [facility] , [address], [place], [address], [place] [facility] 11/01/2023 10:27:51 12/11/2023 text/html She is here for a lumbar epidural steroid injection under fluoroscopic guidance. Bridger Soriano MD [address] [facility] , [address], [place], [address], [place] [facility] 12/11/2023 16:04:51 12/27/2023 text/html She is here for a right genicular nerve block under fluoroscopic guidance Bridger Soriano MD [address] [facility] , [address], [place], [address], [place] [facility] 12/28/2023 09:59:49 04/01/2024 text/html She is here for a lumbar epidural steroid injection under fluoroscopic guidance. Bridger Soriano MD [address] [facility] , [address], [place], [address], [place] [facility] 04/01/2024 17:08:43 OBGyn Episode No OBEpisode recorded.
--- OUTSIDE RECORDS SUMMARY | 2024-06-17 09:13 | XMS_ITS | Encounter Summary ---
Author Organization [facility] Address [address] [place] [address] Phone Care Team Providers Care Autocutter Name Role Phone Benji Salcedo MD Primary Care Provider [phone] Encounter Details Date Type Department Care Team (Late st Contact Info) Description 07/13/2021 Telephone [facility] [address] [place] [address] Noy Tuttle Social History Tobacco [...] on filedocumented in this encounter Care Teams Autocutter Relationship Specialty Start Date End Date Benji Salcedo MD [address] [facility] [address] [place] [address] PCP - General 04/26/20 documented as of this encounter
--- OUTSIDE RECORDS SUMMARY | 2024-06-17 09:13 | XMS_ITS | Data Portability ---
Author Organization [facility] Aditya Owen AONE Wilkinson Address [address] [place] [address] Assessment Encounter Date Assessment Date Assessment LastModified [...] Surgeries total knee replacement (SURG) 2022 023 [email or web address] Not available 12:43:00 Imaging XR, knee, 4 or more view 2022 023 [facility], [address], [place], [address], 07:44:36 Medication Orders None recorded. Patient TargetsNo [...] Time Osteoarthri tis of right knee joint 5773990698996 00 Active 2022 TOYA COMBS PA-C [address], [place], [address], [place] [facility] 3 07:47:22 Osteoarthri tis of left knee joint 1566243035188 09 Active 2022 TOYA COMBS PA-C [address], [place], [address], [place] [facility] 3 07:47:28 Problem Notes None recorded. Medical Equipment None Reported. Allergies Allergen ID Allergen Name Allergen Category Reaction Reaction Severity Criticality Documentation Date Start Date Code Code System Note Provider Name and Address Organization Details Recorded Time 3315 Product containin g penicilli n (product) medicatio n Not available Not available Not available 08/14/2022 97340 8001 SNOMED Kathy Quinn [facility], [facility] 15:20:29 3316 vancomyci n medicatio n Not available Not available Not available 08/14/2022 28010 RxNorm Kathy Quinn [facility], [facility], P 3 15:20:51 Medications Name Sig [...] Updated DateTime 08/14/2022 165.1 cm 36.6 kg/m2 45619.32 g Kathy Quinn [facility] 08/14/2022 15:21:42 Date Recorded Body height Provider Name an d Address Organization Details Last Updated DateTime 08/31/2022 165.1 cm Jenifer Peñaloza [facility] 08/31/2022 16:10:36 Social History Question Answer Notes LastModified by Organizat ion Details LastModified Time Tobacco Smoking Status Never Smoker Kathy Quinn null, [place] [facility] 08/14/2022 15:21:53 What Is Your Level Of Alcohol Consumption? None Information not available 08/14/2022 Do You Use Any Illicit Or Recreational Drugs? No [email or web address] Information not available 08/14/2022 Sex: Unknown Functional Status None recorded. Mental Status None recorded. Family History Relationship Description Onset Age of this Age Resolved Age Notes LastModified by Organization Details LastModified Time Mother Family history of malignant neoplasm [email or web address] Not available 08/14 15:22:22 Father Diabetes mellitus [email or web address] Not available 08/14 15:22:30 Father Heart disease [email or web address] Not available 08/14 15:22:41 Father Hypertensive disorder [email or web address] Not available 08/14 15:22:50 Medical History Condition Response Coronary Artery Disease N Gout Y Hyperthyroidism N MRSA N Blood Transfusion N Emphysema N Depression N COPD N Hypothyroidism N Pacemaker N Vascular Disease N Gastrointestinal Disease N Anxiety Disorder N Autoimmune disease N Arthritis N Cancer N Stroke N High Cholesterol N Neurologic Disorder N Liver Disease N Organ Transplant N Rheumatoid Arthritis N Arrhythmia N Fibromyalgia N Kidney Disease Y Allergies/Hayfever N Adverse Reaction to Anesthesia N Thyroid Problems N Anemia N Brain Injury N Heart Attack (IA) N Osteopenia N Diabetes Y Bleeding Disorder [...] Code Diagnosis Note [id number] MD SULEIMAN Patrick [address] [place] [address] 08/14/2022 14:58:36 08/14/2022 15:35:52 Pain of right knee joint 8286798084 69179 M25.561 Osteoarthr itis of right knee joint 3649299262 69733 M17.11 Osteoarthr itis of left knee joint 7416403666 67572 M17.12 [id number] Luis Carlos Ruby, MD [address] [address] 08/31/2022 16:05:05 08/31/2022 16:27:49 Osteoarthritis of right knee joint 6176607444 91796 M17.11 Arthritis of knee 176106 002 M13.869 Health Concerns Section Related Observation LastModified by Organization Detai ls LastModified Time None Recorded Concern Status LastModified by Organization Details LastModified Time None Recorded Advance Directives Directive None Recorded Payers Encounter Date Sequence Insurance Name Policy Number Policy Tatum Covered Member ID Tatum Member ID Guarantor Name 08/14/2022 1 [place] [place] [employer] [address] [id number] Belgica Queen 08/31/2022 1 [place] [employer]EE [employer] [address] [id number] Belgica [place] Notes Date Note Type Note Provider Name and Address Organization Details Recorded Time 08/14/2022 text/html Assessment and P nicolas: Date of visit 03/15/2021. Seen by me chart in [id number] female with end-stage degenerative joint disease of [...] both of her knees. TOYA COMBS PA-C [address] [place] [address], [address], [place] [facility] 08/15/2022 07:49:50 08/31/2022 text/html HPI:?Thank you [...] degrees. The knee is stable within that bltdz-lv-yldcer to AP and ML stress. The alignment of the knee is {{varus* valgus neutra l}}. Muscle strength is normal. Pedal pulses are palpable. Hip examination, including flexion and internal rotation, was negative in that groin pain was not produced. Radiographs of the right knee from August 14, 2022 demonstrate degenerative joint disease with joint space narrowing, osteophyte formation, and subchondral sclerosis. Xlqj-kz-bsyn articulation in the medial compartment. Assessment/Plan: The [...] right total knee replacement, robotic assisted, at [facility] [place]. Luis Carlos Beltran MD [address], [place], [address], [place] [facility] 08/31/2022 16:35:11 OBGyn Episode No OBEpisode recorded.
--- OUTSIDE RECORDS SUMMARY | 2024-06-17 09:13 | XMS_ITS | Encounter Summary ---
Author Organization [facility] Address [address] [place] [address] Phone Care Team Providers Care Farm Contractor Buyer Name Role Phone Benji Salcedo MD Primary Care Provider [phone] Encounter Details Date Type Department Care Team (Late st Contact Info) Description 08/29/2021 Telephone [facility] [address] [place] [address] Taqueria Hook MD Social History [...] side of her back. Please advise CB# [phone] Thank you documented in this encounter Plan of Treatment Not on file documented as of this encounter Visit Diagnoses Not on filedocumented in this encounter Care Teams Farm Contractor Buyer Relationship Specialty Start Date End Date Benji Salcedo MD [address] [facility] [address] [place] [address] PCP - General 04/26/20 documented as of this encounter
--- OUTSIDE RECORDS SUMMARY | 2024-06-17 09:14 | XMS_ITS | Clinical Summary ---
Author Organization [facility] Address [address] [place] [address] [address] [place] [address] Phone Care Team Providers Care Director Of Community Center Name Role Phone Benji Salcedo MD Primary Care Provider [phone] Allergies Active Allergy Reactions Criticality Noted Date [...] patient's age to complete this topic Insurance [facility] Care Teams Director Of Community Center Relationship Specialty Start Date End Date Benji Salcedo MD [address] [place] [address] PCP - General 04/26/20
--- OUTSIDE RECORDS SUMMARY | 2024-06-17 09:14 | XMS_ITS | Encounter Summary ---
Author Organization [facility] Address [address] [place] [address] Phone Care Team Providers Care Playground Equipment Erector Name Role Phone Benji Salcedo MD Primary Care Provider [phone] Encounter Details Date Type Department Care Team (Late st Contact Info) Description 08/15/2022 Telephone [facility] [address] [place] [address] Sue Tinoco Social History Tobacco [...] on filedocumented in this encounter Care Teams Playground Equipment Erector Relationship Specialty Start Date End Date Benji Salcedo MD [address] [place] [address] PCP - General 04/26/20 documented as of this encounter
--- OUTSIDE RECORDS SUMMARY | 2024-06-17 09:14 | XMS_ITS | Clinical Summary ---
Author Organization [facility] Address [address] [place] [address] Care Team Providers Care Hand Tire Trimmer Name Role Phone Benji Salcedo MD Primary [...] age to complete this topic Care Teams Hand Tire Trimmer Relationship Specialty Start Date End Date Benji Salcedo MD PCP - General Internal Medicine 09/10/14
== END 2024-06-17 09:31 | disposition home or self-care (01) ==
PROVIDERS: PCP Internal Medicine; Visit Provider Internal Medicine Gastroenterology
DX: K52.9 Noninfective gastroenteritis and colitis, unspecified (principal); R10.30 Lower abdominal pain, unspecified; K62.5 Hemorrhage of anus and rectum; K76.0 Fatty (change of) liver, not elsewhere classified; Z86.0100 Personal history of colon polyps, unspecified; K59.00 Constipation, unspecified
CPT/HCPCS: 99214

== ENCOUNTER → 2024-06-17 08:38 | Outpatient (BNVA) | payer BC, SELFPAY | PROVIDERS: PCP Internal Medicine; Visit Provider Internal Medicine Gastroenterology ==

== ENCOUNTER 2024-08-25 14:57 | Outpatient (REF) | payer BC, SELFPAY ==
--- OUTSIDE RECORDS SUMMARY | 2024-08-25 15:01 | XMS_ITS | Encounter Summary ---
Author Organization [facility] Address [address] [place] [address] Phone Care Team Providers Care Vocational Nurse Lvn Name Role Phone Benji Salcedo MD Primary Care Provider [phone] Encounter Details Date Type Department Care Team (Late st Contact Info) Description 08/29/2021 Telephone [facility] [address] [place] [address] Taqueria Hook MD Social History [...] side of her back. Please advise CB# [phone] Thank you documented in this encounter Plan of Treatment Not on file documented as of this encounter Visit Diagnoses Not on filedocumented in this encounter Care Teams Vocational Nurse Lvn Relationship Specialty Start Date End Date Benji Salcedo MD [address] [facility] [address] [place] [address] PCP - General 04/26/20 documented as of this encounter
--- OUTSIDE RECORDS SUMMARY | 2024-08-25 15:01 | XMS_ITS | Encounter Summary ---
Author Organization [facility] Address [address] [place] [address] Phone Care Team Providers Care Android Developer Name Role Phone Benji Salcedo MD Primary Care Provider [phone] Encounter Details Date Type Department Care Team (Late st Contact Info) Description 07/13/2021 Telephone [facility] [address] [place] [address] Noy Tuttle Social History Tobacco [...] on filedocumented in this encounter Care Teams Android Developer Relationship Specialty Start Date End Date Benji Salcedo MD [address] [facility] [address] [place] [address] PCP - General 04/26/20 documented as of this encounter
--- OUTSIDE RECORDS SUMMARY | 2024-08-25 15:01 | XMS_ITS | Data Portability ---
Author Organization [facility] Address [address] [facility] [address] [place] [address] Care Team Providers Care Evaporative Cooler Installer Name Role Phone HELENE QUEZADA Primary Care Provider Assessment Encounter Date Assessment Date Assessment LastModified [...] Details Last Modified Time Details Appointments None record ed. Lab None record ed. Referral None record ed. Procedures None record ed. Surgeries None record ed. Imaging None record ed. Medication Orders None record ed. Patient TargetsNo targets recorded. Patient Instructions Encounter Date Encounter Id Patient Instructions Last Modified By Organization Details Last Modified Time 10/31/2023 [id number] She was advised against bed rest lasting longer than four days and to continue activities as tolerated. [email or web address] Not available 10/31/2023 14:07:55 12/11/2023 [id number] She is a diabetic? ? ?. Blood sugar levels may temporarily increase after steroid injections. She was advised to check? ? ? blood glucose levels three times a day post procedure. If? ? ? levels are above 250, she was advised to contact? ? ?the PCP. [email or web address] Not available 12/11/2023 13:32:29 12/27/2023 [id number] She was advised against bed rest lasting longer than four days and to continue activities as tolerated. [email or web address] Not available 12/27/2023 16:33:20 04/01/2024 [id number] She is a diabetic? ? ?. Blood [...] Knee pain Active Bridger dan MD [address] , [address], [facility] [place], [address], [place] [facility] 6 14:37:23 Displacement of lumbar intervertebral disc without myelopathy 10365911 Active Bridger dan MD [address] , [address], [facility] [place], [address], [place] [facility] 6 14:37:23 Lumbosacral spondylosis without myelopathy 81650680 Active Bridger dan MD [address] , [address], [place], [address], [place] [facility] 6 14:37:23 Muscle pain 00102053 Active Bridger dan MD [address] , [address], [place], [address], [place] [facility] 6 14:37:23 Problem Notes None recorded. Procedures Surgical History Date Name Laterality Status Provider Name and Address Organization Details Recorded Time 04/01/20 24 Lumbar Epidural steroid injection under fluoroscopic guidance completed Bridger Soriano MD [address] , [address], [place], [address], [place] [facility] 04/01/2024 16:41:47 12/27/19 24 Genicular Nerve block completed Bridger Soriano MD [address] , [address], [place], [address], [place] [facility] 12/27/2023 16:34:14 12/11/19 24 Lumbar Epidural steroid injection under fluoroscopic guidance completed Bridger Soriano MD [address] , [address], [place], [address], [place] [facility] 12/11/2023 13:31:06 10/31/19 24 Genicular Nerve block completed Bridger Soriano MD [address] , [address], [place], [address], [place] [facility] 10/31/2023 14:08:55 08/14/19 24 Lumbar Epidural steroid injection under fluoroscopic guidance completed Bridger Soriano MD [address] , [address], [place], [address], [place] [facility] 08/14/2023 13:19:15 07/25/19 24 Genicular Nerve block completed Bridger Soriano MD [address] , [address], [place], [address], [place] [facility] 07/25/2023 14:26:15 04/12/20 23 Intra-articular Knee Steroid Injection completed Bridger Soriano MD [address] , [address], [place], [address], [place] [facility] 04/12/2023 13:55:40 03/21/20 23 Lumbar Epidural steroid injection under fluoroscopic guidance completed Bridger Soriano MD [address] , [address], [place], [address], [place] [facility] 03/21/2023 13:28:50 09/01/19 22 Intra-articular Knee Steroid Injection completed Bridger Soriano MD [address] , [address], [place], [address], [place] [facility] 09/02/2021 10:34:04 06/07/19 22 Lumbar Epidural steroid injection under fluoroscopic guidance completed Bridger Soriano MD [address] , [address], [place], [address], [place] [facility] 06/08/2021 08:41:03 03/24/20 21 Intra-articular Knee Steroid Injection completed Bridger Soriano MD [address] , [address], [place], [address], [place] [facility] 03/24/2021 15:38:55 02/08/20 21 Intra-articular Knee Steroid Injection completed Bridger Soriano MD [address] [facility] , [address], [place], [address], [place] [facility] 02/08/2021 08:53:02 04/12/20 20 Intra-articular Knee Steroid Injection completed Bridger Soriano MD [address] [facility] , [address], [place], [address], [place] [facility] 04/12/2020 15:35:24 01/20/20 20 Intra-articular Knee Steroid Injection completed Bridger Soriano MD [address] [facility] , [address], [place], [address], [place] [facility] 01/20/2020 15:28:58 11/11/19 16 Intra-articular Knee Steroid Injection completed Bridger Soriano MD [address] [facility] , [address], [place], [address], [place] [facility] 11/11/2015 14:57:23 [...] Name and Address Organization Details Recorded Time 25513 Product containin g penicilli n (product) medicatio n rash Not available Not available 10/28/2015 53764 8001 SNOMED Elena hutchison [place] [facility] 6 15:23:45 87823 Keflex medicatio n Not available Not available Not available 10/28/201561092 7 RxNorm Facia l SweLL ING Judith hutchison, [place] [facility] 2 14:17:48 53723 vancomyci n medicatio n Not available Not available Not available 10/28/2015 13541 RxNorm Elena Ramirez kianna [facility] 6 15:23:45 33619 Iodinated contrast media (substanc e) medicatio n other Not available Not available 10/28/2015 32627 2004 SNOMED Right arm tremo rs Elena hutchison [facility] 6 15:23:45 Medications Name Sig [...] azole 400 mg-trimetho prim 80 mg tablet 07/09 completed Not Available Not Available Not Available hydrocodone [...] Not Available levofloxaci n 250 mg tablet 07/09 completed Not Available Not Available Not Available [...] TIMES A DAY FOR 10 DAYS NEEDED 07/09 completed Not Available Not Available Not Available econazole nitrate 1 % topical cream [...] Y TWICE A DAY FOR 5 DAYS 07/09 completed Not Available Not Available Not Available furosemide 20 mg tablet TAKE 1 [...] ORALLY EVERY 12 HOURS FOR 10 DAYS 07/09 completed Not Available Not Available Not Available Trulicity 0.75 mg/0.5 mL subcutaneou s pen injector INJECT 0.75 MG (0.5 ML) SUBCUTANE OUSLY EVERY WEEK 03/19 completed Not Available Not Available Not Available Shingrix (PF) 50 mcg/0.5 mL intramuscul ar suspension, kit [facility] 04/12 completed Not Available Not Available Not Available FreeStyle Ladonna 14 Day Sensor kit CHANGE EVERY 14 DAYS DIRECTED active Not Available Not Available No t Available Flucelvax Quad (PF) 60 mcg (15 mcg x 4)/0.5 mL IM syringe 12/17 completed Not Available Not Available Not Available Flucelvax Quad (PF) 60 mcg (15 mcg x 4)/0.5 mL IM syringe [facility] 04/12 completed Not Available Not Available Not [...] saturation in Arterial blood by Pulse oximetry Pain severity - 0-10 verbal numeric rating [Score] - Reported Systolic blood pressure Diastolic blood pressure Provider Name and Address Organization Details Last Updated DateTime 4 162.56 cm 72 /min 96 % 96 % 8 96 mm[Hg] 59 mm[Hg] Casie Rios o [...] % 127 mm[Hg] 61 mm[Hg] Judith Diaz [facility] 4 11:08:45 Social History Question Answer Notes LastModified by Organizat ion Details LastModified Time Tobacco Smoking Status Never Smoker Not Available [employer] 01/30/2020 03:16:10 Which Illicit Or Recreational Drugs Have You Used? No [id number] Information not available 01/30/2020 Education [facility] [employer] [email or web address] Information not available 10/28/2015 Live Alone Or With Others? [email or web address] Information not available 10/28/2015 Marital Status [email or web address] Informatio n not available 10/28/2015 Sex: Unknown Functional Status Question Answer Note LastModified by Organizat ion Details LastModified Time What is your level of alcohol consumption? None [id number] Information not available 01/30/2020 Are you currently employed? 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 Family History Relationship [...] and Address Organization Details Recorded Time Novel [id number], all formulations 3 completed [facility] 03/19/2023 11:10:15 Past Encounters Encounter ID Performer Location Encounter Start Date Encounter Closed Date Diagnosis/Indication Diagnosis SNOMED-CT Code Diagnosis ICD10 Code Diagnosis Note [id number] Bridger Soriano MD PAIN OFFICE [address] [facility] [address] [facility] [place] [address] 10/28/2015 14:37:49 11/07/2015 19:52:53 Displacement of lumbar intervertebral disc without myelopathy 10860847 M51. Knee pain 48674781 M25.5 62 Lumbosacra l spondylosis without myelopathy 46212757 M47.817 Muscle pain 07603579 M79 .1 [id number] Bridger Soriano MD PAIN OFFICE [address] [place] [address] 11/11/2015 13:35:56 11/11/2015 15:14:43 Knee pain 79378952 M25.562 Displaceme nt of lumbar intervertebral disc without myelopathy 20020120. Lumbosacra l spondylosis without myelopathy 61334974 M47.817 Muscle pain 05060563 M79 .1 [id number] Bridger Soriano MD PAIN OFFICE [address] [place] [address] 12/18/2019 13:39:18 12/18/2019 16:05:51 Displacement of lumbar intervertebral disc without myelopathy 20020120. Lumbosacra l spondylosis without myelopathy 85331151 M47.817 Knee pain 44689988 M25.5 62 Muscle pain 62106830 M79 .18 [id number] Bridger Soriano MD PAIN OFFICE [address] [place] [address] 01/20/2020 14:58:58 01/20/2020 16:09:34 Knee pain 34413359 M25.562 Displaceme nt of lumbar intervertebral disc without myelopathy 20020120. Lumbosacra l spondylosis without myelopathy 96735124 M47.817 Muscle pain 06462812 M79 .18 Anxiety 02570738 F41.9 [id number] Bridger Soriano MD PAIN OFFICE [address] [place] [address] 04/12/2020 15:05:36 04/12/2020 15:47:49 Knee pain 02485371 M25.562 Displaceme nt of lumbar intervertebral disc without myelopathy 20020120. Lumbosacra l spondylosis without myelopathy 67305418 M47.817 Muscle pain 45250516 M79 .18 Anxiety 02865114 F41.9 [id number] Bridger Soriano MD [facility] PAIN OFFICE [address] [facility] [place] [address] 04/26/2020 15:03:26 04/27/2020 11:19:16 Knee pain 45304907 M25.562 Displaceme nt of lumbar intervertebral disc without myelopathy 66050336 M51.26 Lumbosacra l spondylosis without myelopathy 59391273 M47.817 Muscle pain 64602224 M79 .18 Anxiety 01021517 F41.9 [id number] Bridger Soriano MD [facility] PAIN [facility] [address] [facility] [place] [address] 02/07/2021 15:07:39 02/08/2021 08:55:18 Knee pain 75367268 M25.562 Displaceme nt of lumbar intervertebral disc without myelopathy 78750918 M51.26 Lumbosacra l spondylosis without myelopathy 39515332 M47.817 Muscle pain 62415758 M79 .18 Anxiety 95771774 F41.9 [id number] Bridger Soriano MD [facility] PAIN [facility]ICE [address] [facility] [place] [address] 03/24/2021 15:06:19 03/24/2021 15:42:22 Knee pain 40787589 M25.562 Displaceme nt of lumbar intervertebral disc without myelopathy 74552847 M51.26 Lumbosacra l spondylosis without myelopathy 72927256 M47.817 Muscle pain 99452229 M79 .18 Anxiety 90186996 F41.9 [id number] Bridger Soriano MD [facility] PAIN OFFICE [address] [facility] [place] [address] 06/07/2021 13:30:02 06/08/2021 08:44:36 Displacement of lumbar intervertebral disc without myelopathy 36497728 M51.26 Lumbosacra l spondylosis without myelopathy 63164300 M47.817 Knee pain 75049693 M25.5 62 Muscle pain 09780772 M79 .18 [id number] Bridger Soriano MD [facility] PAIN OFFICE [address] [facility] [place] [address] 08/31/2021 14:13:59 09/02/2021 10:35:50 Knee pain 76446777 M25.562 Displaceme nt of lumbar intervertebral disc without myelopathy 67648937 M51.26 Lumbosacra l spondylosis without myelopathy 51085906 M47.817 Muscle pain 10027824 M79 .18 Anxiety 38293534 F41.9 [id number] Bridger Soriano MD PAIN OFFICE [address] [facility] [place] [address] 03/19/2023 10:58:59 03/19/2023 15:21:25 Lumbosacral spondylosis without myelopathy 72646163 M47.817 Displaceme nt of lumbar intervertebral disc without myelopathy 29620846 M51.26 Knee pain 28069218 M25.5 62 Muscle pain 22667299 M79 .18 [id number] Bridger Soriano MD PAIN OFFICE [address] [facility] [place] [address] 03/21/2023 13:01:27 03/21/2023 14:25:30 Displacement of lumbar intervertebral disc without myelopathy 75068314 M51.26 Lumbosacra l spondylosis without myelopathy 76452616 M47.817 Knee pain 20401457 M25.5 62 Muscle pain 21856810 M79 .18 Lumbar radiculopathy 128 601452 M54.16 [id number] Bridger Soriano MD PAIN OFFICE [address] [facility] [place] [address] 04/12/2023 13:30:59 04/12/2023 13:58:00 Knee pain 91608335 M25.562 Osteoarthr itis of knee 026513871 M17.11 [id number] Bridger Soriano MD PAIN OFFICE [address] [facility] [address] 07/25/2023 13:26:45 07/25/2023 14:55:44 Osteoarthritis of knee 205018952 M17.11 [id number] Bridger Soriano MD [facility] PAIN OFFICE [address] [facility] [place] [address] 08/14/2023 11:28:40 08/14/2023 15:55:58 Displacement of lumbar intervertebral disc without myelopathy 06122087 M51.26 Lumbosacra l spondylosis without myelopathy 05597421 M47.817 Knee pain 85793110 M25.5 62 Muscle pain 13527972 M79 .18 Lumbar radiculopathy 128 806637 M54.16 [id number] Bridger Soriano MD PAIN OFFICE [address] [facility] [place] [address] 10/31/2023 13:33:33 10/31/2023 16:13:12 Knee pain 03176525 M25.562 Osteoarthr itis of knee 022489106 M17.12 [id number] Bridger Soriano MD PAIN OFFICE [address] [facility] [place] [address] 12/11/2023 13:07:11 12/11/2023 14:55:52 Lumbar radiculopathy 621487337 M54.16 Displaceme nt of lumbar intervertebral disc without myelopathy 76214365 M51.26 [id number] Bridger Soriano MD PAIN OFFICE [address] [facility] [place] [address] 12/27/2023 13:38:10 12/27/2023 17:06:15 Knee pain 60191788 M25.562 Osteoarthr itis of knee 547294834 M17.11 [id number] Bridger Soriano MD PAIN OFFICE [address] [facility] [place] [address] 04/01/2024 11:04:31 04/01/2024 16:59:44 Lumbar radiculopathy 765386960 M54.16 Displaceme nt of lumbar intervertebral disc without myelopathy 41571443 M51.26 Health Concerns Section Related Observation LastModified by Organization Detai ls LastModified Time None Recorded Concern Status LastModified by Organization Details LastModified Time None Recorded Advance Directives Directive None Recorded Payers Encounter Date Sequence Insurance Name Policy Number Policy Tatum Covered Member ID Tatum Member ID Guarantor Name 08/14/2023 1 [place] [employer] [place] Barrios [place] [id number] [place] 10/31/2023 1 [place] Barrios [place] [id number] [place] 12/11/2023 1 [place] [employer] Barrios [place] [id number] [place] 12/27/2023 1 [place] [employer] Barrios [place] [id number] [place] 04/01/2024 1 [place] [employer] Denis [place] [id number] [place] Notes Date Note Type Note Provider Name and Address Organization Details Recorded Time 08/14/2023 text/html She is here for a lumbar epidural steroid injection under fluoroscopic guidance. Bridger Soriano MD [address] [facility] , [address] [place] [address], [place], [address], [place] [facility] 08/14/2023 16:05:20 10/31/2023 text/html She is here for a left genicular nerve block under fluoroscopic guidance Bridger Soriano MD [address] [address], [place], [address], [place] [facility] 11/01/2023 10:27:51 12/11/2023 text/html She is here for a lumbar epidural steroid injection under fluoroscopic guidance. Bridger Soriano MD [address] [facility] , [address] [address], [place], [address], [place] [facility] 12/11/2023 16:04:51 12/27/2023 text/html She is here for a right genicular nerve block under fluoroscopic guidance Brdiger Soriano MD [address] [facility] [facility] , [place] [address], [place], [address], [place] [facility] 12/28/2023 09:59:49 04/01/2024 text/html She is here for a lumbar epidural steroid injection under fluoroscopic guidance. Bridger Soriano MD [address] , [address] [place], [address], [facility] 04/01/2024 17:08:43 OBGyn Episode No OBEpisode recorded.
--- OUTSIDE RECORDS SUMMARY | 2024-08-25 15:01 | XMS_ITS | Data Portability ---
Author Organization [facility] Aditya Owen AONE Tatum Address [address] [place] [address] Assessment Encounter Date Assessment Date Assessment LastModified [...] contain grammatical errors secondary to the software. [email or web address] Not available 08/15/2022 07:49:37 Plan of Treatment Reminders Order Date Submit Date Provider Last Modified By Organization Details Last Modified Time Details Appointments None recorded. Lab None recorded. Referral None recorded. Procedures None recorded. Surgeries total knee replacement (SURG) 2022 023 [email or web address] 0 Not available 3 12:43:00 Imaging XR, knee, 4 or more view 2022 023 [facility], [address], [address], [place], [address], 3 07:44:36 Medication Orders None recorded. Patient TargetsNo targets recorded. Patient InstructionsNo instructions recorded. Reason for Referral None Reported. Problems Name Problem SNOMED Code Status Onset Date Resolution Date Notes Provider Name and Address Organization Details Recorded Time Osteoarthri tis of right knee joint 4763389506872 00 Active 2022 TOYA COMBS PA-C [address] [facility],[address], [place], [address], [place] [facility] [place], [facility] 3 07:47:22 Osteoarthri tis of left knee joint 7007339338209 09 Active 2022 TOYA COMBS PA-C 299 [facility],[address], [place], [address], [place] [facility] [place], [facility] 3 07:47:28 Problem Notes None recorded. Medical Equipment None Reported. Allergies Allergen ID Allergen Name Allergen Category Reaction Reaction Severity Criticality Documentation Date Start Date Code Code System Note Provider Name and Address Organization Details Recorded Time 3315 Product containin g penicilli n (product) medicatio n Not available Not available Not available 08/14/2022 50315 8001 SNOMED Kathy Quinn [facility], [facility] 3 15:20:29 3316 vancomyci n medicatio n Not available Not available Not available 08/14/2022 32804 RxNorm Kathy Quinn [facility], [place] [facility] 3 15:20:51 Medications Name Sig [...] Updated DateTime 08/14/2022 165.1 cm 36.6 kg/m2 53131.32 g Kathy Quinn [place] [facility] [place], [facility] 08/14/2022 15:21:42 Date Recorded Body height Provider Name an d Address Organization Details Last Updated DateTime 08/31/2022 165.1 cm Jenifer Chehéctor [facility] [place], P 08/31/2022 16:10:36 Social History None recorded. Functional Status Question Answer Note LastModified by Organizat ion Details LastModified Time Do you use any illicit or recreational drugs? No [email or web address] Information not available 08/14/2022 What is your level of alcohol consumption? None [email or web address] Information not available 08/14/2022 Mental Status None recorded. Family History Relationship Description Onset Age of this Age Resolved Age Notes LastModified by Organization Details LastModified Time Mother Family history of malignant neoplasm [email or web address] Not available 08/14 15:22:22 Father Diabetes mellitus [email or web address] Not available 08/14 15:22:30 Father Heart disease [email or web address] Not available 08/14 15:22:41 Father Hypertensive disorder [email or web address] Not available 08/14 15:22:50 Medical History Condition Response Coronary Artery Disease N Gout Y Hyperthyroidism N Blood Transfusion N MRSA N Emphysema N Depression N COPD N [...] Anemia N Brain Injury N Heart Attack ([place]) N Osteopenia N Diabetes Y Bleeding Disorder [...] Code Diagnosis ICD10 Code Diagnosis Note 7796 [facility] [address] [address] 08/14/2022 14:58:36 08/14/2022 15:35:52 Pain of right knee joint 4781955065 63400 M25.561 Osteoarthr itis of right knee joint 4828318754 82712 M17.11 Osteoarthr itis of left knee joint 3213949091 41759 M17.12 42253 Luis Carlos Beltran MD [address] [address] 08/31/2022 16:05:05 08/31/2022 16:27:49 Osteoarthritis of right knee joint 9520024167 71586 M17.11 Arthritis of knee 598520 002 M13.869 Health Concerns Section Related Observation LastModified by Organization Detai ls LastModified Time None Recorded Concern Status LastModified by Organization Details LastModified Time None Recorded Advance Directives Directive None Recorded Payers Encounter Date Sequence Insurance Name Policy Number Policy Tatum Covered Member ID Tatum Member ID Guarantor Name 08/14/2022 1 [employer]: [place] [employer] 111 Belgica Romanor [id number] Belgica Pierce 08/31/2022 1 [place] [facility] - [employer]EE [employer]GRAM 111 Belgica Romanor [id number] Belgica Pierce Notes Date Note Type Note Provider Name and Address Organization Details Recorded Time 08/14/2022 text/html Assessment and P nicolas: Date of visit 03/15/2021. Seen by me chart in [id number] female with end-stage degenerative joint disease of [...] both of her knees. TOYA COMBS PA-C [address] [address], [place], [address], [place] [facility] 08/15/2022 07:49:50 08/31/2022 text/html HPI:?Thank you [...] degrees. The knee is stable within that [id number] to AP and ML stress. The alignment of the knee is {{varus* valgus neutra l}}. Muscle strength is normal. Pedal pulses are palpable. Hip examination, including flexion and internal rotation, was negative in that groin pain was not produced. Radiographs of the right knee from August 14, 2022 demonstrate degenerative joint disease with joint space narrowing, osteophyte formation, and subchondral sclerosis. Ybmy-wb-hsit articulation in the medial compartment. Assessment/Plan: The [...] right total knee replacement, robotic assisted, at [place] [facility] [place]. Luis Carlos Beltran MD [address], [place], [address], [place] [facility] 08/31/2022 16:35:11 OBGyn Episode No OBEpisode recorded.
--- OUTSIDE RECORDS SUMMARY | 2024-08-25 15:01 | XMS_ITS | Clinical Summary ---
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 Immunizations Immunization Administration Dates Next Due Influenza, MDCK, PF, [...] Colorectal Cancer Screening: Sigmoidoscopy 2003 Pneumococcal Vaccine: 50+ Ye ars (2 of 2 - PCV) 04/26/2007 04/26/2006 Influenza Vaccine (Season Ended) 2024 01/24/20 20 Pneumococcal Vaccine: Peds ( 0 to 5 Years) and At-Risk Patients (6 to 49 Years) Discontinued 04/26/2006 Hepatitis B Vaccine Aged Out No longe r eligible based on patient's age to complete this topic Insurance [facility] Care Teams Parachute Supervisor Relationship Specialty Start Date End Date Benji Salcedo MD [address] [place] [address] PCP - General 04/26/20
--- OUTSIDE RECORDS SUMMARY | 2024-08-25 15:01 | XMS_ITS | Encounter Summary ---
Author Organization [facility] Address [address] [place] [address] Phone Care Team Providers Care Correctional Probation Officer Name Role Phone Benji Salcedo MD Primary Care Provider [phone] Encounter Details Date Type Department Care Team (Late st Contact Info) Description 08/15/2022 Telephone [facility] [address] [place] [address] Sue Tinoco Social History Tobacco [...] on filedocumented in this encounter Care Teams Correctional Probation Officer Relationship Specialty Start Date End Date Benji Salcedo MD [address] [place] [address] PCP - General 04/26/20 documented as of this encounter
--- OUTSIDE RECORDS SUMMARY | 2024-08-25 15:01 | XMS_ITS | Clinical Summary ---
Author Organization [facility] Address [address] [place] [address] Care Team Providers Care Letterpress Printing Machinist Name Role Phone Benji Salcedo MD Primary [...] age to complete this topic Care Teams Letterpress Printing Machinist Relationship Specialty Start Date End Date Benji Salcedo MD PCP - General Internal Medicine 09/10/14
[2024-08-25 16:43] LABS: Anion Gap 14 (12-20); Blood Urea Nitrogen 33 mg/dL (9-16); Carbon Dioxide 25 mmol/L (22-29); Chloride 108 mmol/L (96-108); Estimated Glomerular Filt Rate 49; Potassium 3.8 mmol/L (3.3-5.1); Sodium 143 mmol/L (135-145)
== END 2024-08-25 14:58 | disposition home or self-care (01) ==
LOC: HO.HMGCLDS 14:57
PROVIDERS: PCP Internal Medicine; Visit Provider Internal Medicine Nephrology
DX: I12.9 Hypertensive chronic kidney disease with stage 1 through stage 4 chronic kidney disease, or unspecified chronic kidney disease (principal); N18.31 Chronic kidney disease, stage 3a
CPT/HCPCS: 36415; 80051; 82565; 84520

== ENCOUNTER 2024-09-02 13:43 | Outpatient (AMB) | payer BC, SELFPAY ==
[2024-09-02 13:48] VITALS: BP 102/68; PULSE 83; O2SAT 98; BMI 33.8
--- NOTE | 2024-09-02 13:48 | HO.NEPHOV ---
Vital Signs 09/02/24 13:48 Height 5 ft 4 in Weight 197 lb BMI 33.8 BP 102/68 Blood Pressure Location Lt brachial Position Sitting Pulse 83 Pulse Source Pulse Oximeter Pulse Oximetry (%) 98 Oxygen Delivery Method Room Air Intake Visit Reasons: CKD-Conf Logging Tractor Operator Required: No Accompanied by: Self / Same As Patient Allergies Iodinated Contrast Media [IV CONTRAST] Allergy (Severe, Verified 09/02/24 13:49) SEIZURE vancomycin [VANCOMYCIN] Allergy (Severe, Verified 09/02/24 13:49) ITCHING, SOB doxycycline [DOXYCYCLINE] Allergy (Intermediate, Verified 09/02/24 13:49) DIFFICULTY SWALLOWING Penicillins [PENICILLINS] Allergy (Intermediate, Verified 09/02/24 13:49) RASH cephalexin [From KEFLEX] Allergy (Unknown, Verified 09/02/24 13:49) RASH Sulfa (Sulfonamide Antibiotics) [SULFA (SULFONAMIDE ANTIBIOTICS)] Allergy (Unknown, Verified 09/02/24 13:49) UNKNOWN HPI Comments Details: Belgica was seen in the office in follow-up for chronic kidney disease and hypertension. She recently had GI symptoms and was found to have C Difficile infection & was treated. During this illness, she has been taking ARB with development of CONRAD, which has resolved now. She takes her Lasix only as needed basis. Her past renal ultrasound showed cortical thinning on the left. She has a diagnosis of obstructive sleep apnea and does not use CPAP. She takes a nonsteroidal anti-inflammatory medications as needed basis. Her uric acid has been high and had gout . She denies any urinary symptoms, chest pain, dizziness. [facility] Medical History GINA (obstructive sleep apnea) Gout On beta kamar at home Chronic headaches Splenic artery aneurysm Meningioma HTN (hypertension) Surgical History Hx laparoscopic cholecystectomy (~2013) History of hysterectomy History of History of colonoscopy (~08/2018) Family History Father Family hx of colon cancer Mother Hx of breast cancer Paternal Grandmother Colon cancer Social History Household Members: None Housing: House Alcohol intake: never Patient Tobacco Use Status: Never used Tobacco e-Cigarette/Vaping Use: Never Used service: No Cognitive needs: No Hearing needs: No Vision needs: No Review of Systems Const All systems reviewed & are unremarkable except as noted in HPI and below Physical Exam Vital Signs: Last Vital Signs Pulse 83 09/02/24 13:48 Pulse Ox 98 09/02/24 13:48 Oxygen Delivery Method Room Air 09/02/24 13:48 BMI result Body Mass Index 33.8 Const General: comfortable and no acute distress Orientation/consciousness: patient oriented x3 HEENT Head: Yes normocephalic Mouth: Normal oral and palatal mucosa present Eyes EOM: EOMs intact bilaterally Neck Neck: Yes supple Resp Auscultation: clear to auscultation bilaterally Cardio Jugular venous distension: no JVD Rate: regular rate GI Palpation (GI): Soft to palpation Auscultation: normal bowel sounds General: Yes no CVA tenderness Back/Spine/Pelvis Back: no CVA tenderness Skin General skin exam: no rashes or lesions noted Neuro General: patient oriented x3 and moves all extremities Extrem General: Yes no pedal edema Results Reviewed Nephrology Results: Hgb 14.8 g/dl (12.0-16.0) 05/24/24 WBC 8.5 X10*3/uL (4.8-10.8) 05/24/24 Plt Count 209 X10*3/uL (160-400) 05/24/24 Sodium 143 mmol/L (135-145) 08/25/24 Potassium 3.8 mmol/L (3.3-5.1) 08/25/24 Chloride 108 mmol/L (96-108) 08/25/24 Carbon Dioxide 25 mmol/L (22-29) 08/25/24 BUN 33 mg/dL (9-16) H 08/25/24 Creatinine 1.10 mg/dL (0.5-1.4) 08/25/24 Calcium 9.8 mg/dL (8.4-10.2) 05/24/24 Urine Protein Trace mg/dL (Neg-Trace) 05/24/24 Assessment & Plan Assessment & Plan (1) CKD (chronic kidney disease) stage 3, GFR 30-59 ml/min: Code(s): N18.30 - Chronic kidney disease, stage 3 unspecified Category: Medical Qualifiers: Chronic kidney disease stage 3 subtype: stage 3a (GFR 45-59) Qualified Code(s): N18.31 - Chronic kidney disease, stage 3a (2) HTN (hypertension): Code(s): I10 - Essential (primary) hypertension Category: Medical Qualifiers: Hypertension type: primary hypertension Qualified Code(s): I10 - Essential (primary) hypertension (3) Hyperuricemia: Code(s): E79.0 - Hyperuricemia without signs of inflammatory arthritis and tophaceous disease Category: Medical Plan Belgica has CKD due to vascular disease. Her renal function is stable. She is diabetic and hypertensive. She is not known to have significant proteinuria.She likely has mild renal artery stenosis on the left given cortical thinning on that side. Her BP is at goal and her renal functions are back to baseline. She takes Lasix . I started her on Allopurinol 100 mg daily. I will consider doing a split function study of her kidney in the future. All questions answered Orders: Orders Uric Acid Today E79.0 - Hyperuricemia without signs of inflammatory arthritis and tophaceous disease Electrolytes 4 Months E79.0 - Hyperuricemia without signs of inflammatory arthritis and tophaceous disease, I10 - Essential (primary) hypertension, N18.31 - Chronic kidney disease, stage 3a Blood Urea Nitrogen 4 Months E79.0 - Hyperuricemia without signs of inflammatory arthritis and tophaceous disease, I10 - Essential (primary) hypertension, N18.31 - Chronic kidney disease, stage 3a Creatinine 4 Months E79.0 - Hyperuricemia without signs of inflammatory arthritis and tophaceous disease, I10 - Essential (primary) hypertension, N18.31 - Chronic kidney disease, stage 3a Uric Acid 4 Months E79.0 - Hyperuricemia without signs of inflammatory arthritis and tophaceous disease Medications: New allopurinol 100 mg PO DAILY 90 tabs 3RF Coding Level of Care Code Est Pt Level 4 (56284) Diagnoses Stage 3a chronic kidney disease N18.31 Chronic kidney disease stage 3 subtype: stage 3a (GFR 45-59) Primary hypertension I10 Hypertension type: primary hypertension Hyperuricemia E79.0
--- OUTSIDE RECORDS SUMMARY | 2024-09-02 14:54 | XMS_ITS | Encounter Summary ---
Author Organization [facility] Address [address] [place] [address] Phone Care Team Providers Care Lettuce Cutter Name Role Phone Benji Salcedo MD Primary Care Provider [phone] Encounter Details Date Type Department Care Team (Late st Contact Info) Description 07/13/2021 Telephone [facility] [address] [place] [address] Noy Tuttle Social History Tobacco [...] on filedocumented in this encounter Care Teams Lettuce Cutter Relationship Specialty Start Date End Date Benji Salcedo MD [address] [facility] [address] [place] [address] PCP - General 04/26/20 documented as of this encounter
--- OUTSIDE RECORDS SUMMARY | 2024-09-02 14:54 | XMS_ITS | Encounter Summary ---
Author Organization [facility] Address [address] [place] [address] Phone Care Team Providers Care Weir Fisher Name Role Phone Benji Salcedo MD Primary Care Provider [phone] Encounter Details Date Type Department Care Team (Late st Contact Info) Description 08/15/2022 Telephone [facility] [address] [place] [address] Sue Tinoco Social History Tobacco [...] on filedocumented in this encounter Care Teams Weir Fisher Relationship Specialty Start Date End Date Benji Salcedo MD [address] [place] [address] PCP - General 04/26/20 documented as of this encounter
--- OUTSIDE RECORDS SUMMARY | 2024-09-02 14:54 | XMS_ITS | Clinical Summary ---
Author Organization [facility] Address [address] [place] [address] [address] [place] [address] Phone Care Team Providers Care Costumed Character Entertainer Name Role Phone Benji Salcedo MD Primary Care Provider [phone] Allergies Active Allergy Reactions Criticality Noted Date [...] patient's age to complete this topic Insurance [facility] Care Teams Costumed Character Entertainer Relationship Specialty Start Date End Date Benji Salcedo MD [address] [place] [address] PCP - General 04/26/20
--- OUTSIDE RECORDS SUMMARY | 2024-09-02 14:54 | XMS_ITS | Encounter Summary ---
Author Organization [facility] Address [address] [place] [address] Phone Care Team Providers Care Cat Sitter Name Role Phone Benji Salcedo MD Primary Care Provider [phone] Encounter Details Date Type Department Care Team (Late st Contact Info) Description 08/29/2021 Telephone [facility] [address] [place] [address] Taqueria Hook MD Social History [...] side of her back. Please advise CB# [phone] Thank you documented in this encounter Plan of Treatment Not on file documented as of this encounter Visit Diagnoses Not on filedocumented in this encounter Care Teams Cat Sitter Relationship Specialty Start Date End Date Benji Salcedo MD [address] [facility] [address] [place] [address] PCP - General 04/26/20 documented as of this encounter
--- OUTSIDE RECORDS SUMMARY | 2024-09-02 14:54 | XMS_ITS | Clinical Summary ---
Author Organization [facility] Address [address] [place] [address] Care Team Providers Care Automatic Corn Grinder Operator Name Role Phone Benji Salcedo MD [...] age to complete this topic Care Teams Automatic Corn Grinder Operator Relationship Specialty Start Date End Date Benji Salcedo MD PCP - General Internal Medicine 09/10/14
--- OUTSIDE RECORDS SUMMARY | 2024-09-02 14:54 | XMS_ITS | Data Portability ---
Author Organization [facility] Aditya Owen AONE [place] Address [address] [place] [address] Assessment Encounter Date Assessment Date Assessment LastModified [...] Surgeries total knee replacement (SURG) 2022 023 [email or web address] [id number] Not available 3 12:43:00 Imaging XR, knee, 4 or more view 2022 023 [facility], [address], [place], [address], 3 07:44:36 Medication Orders None recorded. Patient TargetsNo targets recorded. Patient InstructionsNo instructions recorded. Reason for Referral None Reported. Problems Name Problem SNOMED Code Status Onset Date Resolution Date Notes Provider Name and Address Organization Details Recorded Time Osteoarthri tis of right knee joint 8340151257514 00 Active 2022 TOYA COMBS PA-C [address] [facility],[address], [place], [address], [place] [facility], P 3 07:47:22 Osteoarthri tis of left knee joint 1810004215935 09 Active 2022 TOYA COMBS PA-C [address] [facility],[address], [place], [address], [place] [facility], P 3 07:47:28 Problem Notes None recorded. Medical Equipment None Reported. Allergies Allergen ID Allergen Name Allergen Category Reaction Reaction Severity Criticality Documentation Date Start Date Code Code System Note Provider Name and Address Organization Details Recorded Time 3315 Product containin g penicilli n (product) medicatio n Not available Not available Not available 08/14/2022 02718 8001 SNOMED Kathy Quinn [facility], [facility] 15:20:29 3316 vancomyci n medicatio n Not available Not available Not available 08/14/2022 52655 RxNorm Kathy Quinn [facility], [place] [facility] 3 15:20:51 Medications Name Sig [...] Updated DateTime 08/14/2022 165.1 cm 36.6 kg/m2 03110.32 g Kathy Quinn [place] [facility], [facility] 08/14/2022 15:21:42 Date Recorded Body height Provider Name an d Address Organization Details Last Updated DateTime 08/31/2022 165[address] [facility] [place], P 08/31/2022 16:10:36 Social History None recorded. Functional Status Question Answer Note LastModified by Organizat ion Details LastModified Time Do you use any illicit or recreational drugs? No [email or web address] Information not available 08/14/2022 What is your level of alcohol consumption? None [email or web address] Information not available 08/14/2022 Mental Status None recorded. Family History Relationship Description Onset Age of this Age Resolved Age Notes LastModified by Organization Details LastModified Time Mother Family history of malignant neoplasm [email or web address] Not available 08/14 15:22:22 Father Diabetes mellitus [email or web address] Not available 08/14 15:22:30 Father Heart disease [email or web address] Not available 08/14 15:22:41 Father Hypertensive disorder [email or web address] Not available 08/14 15:22:50 Medical History Condition Response Coronary Artery Disease N Gout Y Hyperthyroidism N MRSA N Blood Transfusion N Emphysema N Hypothyroidism N COPD N Depression N Pacemaker N Vascular Disease N Gastrointestinal Disease N Anxiety Disorder N Autoimmune disease N Arthritis N Cancer N Stroke N High Cholesterol N Neurologic Disorder N Liver Disease N Organ Transplant N Rheumatoid Arthritis N Arrhythmia N Fibromyalgia N Kidney Disease Y Allergies/Hayfever N Adverse Reaction to Anesthesia N Thyroid Problems N Anemia N Brain Injury N Heart Attack ([place]) N Osteopenia N Diabetes Y Bleeding Disorder [...] Diagnosis ICD10 Code Diagnosis Note [facility] [address] [address] 08/14/2022 14:58:36 08/14/2022 15:35:52 Pain of right knee joint 7888944414 52741 M25.561 Osteoarthr itis of right knee joint 0186822221 05294 M17.11 Osteoarthr itis of left knee joint 3229120481 59867 M17.12 [address]000 Luis Carlos Beltran MD [address] [address] 08/31/2022 16:05:05 08/31/2022 16:27:49 Osteoarthritis of right knee joint 7158407532 09843 M17.11 Arthritis of knee 026976 002 M13.869 Health Concerns Section Related Observation LastModified by Organization Detai ls LastModified Time None Recorded Concern Status LastModified by Organization Details LastModified Time None Recorded Advance Directives Directive None Recorded Payers Encounter Date Sequence Insurance Name Policy Number Policy Tatum Covered Member ID Tatum Member ID Guarantor Name 08/14/2022 1 [employer]: [place] [employer] 111 Belgica Romanor [id number] Belgica Pierce 08/31/2022 1 [place] [employer] - [employer]EE [employer] 111 Belgica Roamnor [id number] Belgica Pierce Notes Date Note Type Note Provider Name and Address Organization Details Recorded Time 08/14/2022 text/html Assessment and P nicolas: Date of visit 03/15/2021. Seen by me chart in [id number] female with end-stage degenerative joint disease of [...] of her knees. TOYA COMBS PA-C [address] [address], [place], [address], [place] [facility], P 08/15/2022 07:49:50 08/31/2022 text/html HPI:?Thank you [...] degrees. The knee is stable within that [id number] to AP and ML stress. The alignment of the knee is {{varus* valgus neutra l}}. Muscle strength is normal. Pedal pulses are palpable. Hip examination, including flexion and internal rotation, was negative in that groin pain was not produced. Radiographs of the right knee from August 14, 2022 demonstrate degenerative joint disease with joint space narrowing, osteophyte formation, and subchondral sclerosis. [id number]-[id number] articulation in the medial compartment. Assessment/Plan: The [...] right total knee replacement, robotic assisted, at [place] [facility] [place]. Luis Carlos Beltran MD [address], [place], [address], [place] [facility], P 08/31/2022 16:35:11 OBGyn Episode No OBEpisode recorded.
--- OUTSIDE RECORDS SUMMARY | 2024-09-02 14:54 | XMS_ITS | Data Portability ---
Author Organization [facility] PA[facility] Address [address] [facility] [address] [place] [address] Care Team Providers Care Estate Tax Examiner Name Role Phone HELENE QUEZADA Primary Care [...] By Organization Details Last Modified Time 10/31/2023 [id number] She was advised against bed rest lasting longer than four days and to continue activities as tolerated. [email or web address] Not available 10/31/2023 14:07:55 12/11/2023 22843 She is a diabetic? ? ?. Blood sugar levels may temporarily increase after steroid injections. She was advised to check? ? ? blood glucose levels three times a day post procedure. If? ? ? levels are above 250, she was advised to contact? ? ?the PCP. [email or web address] Not available 12/11/2023 13:32:29 12/27/2023 32432 She was advised against bed rest lasting longer than four days and to continue activities as tolerated. [email or web address] Not available 12/27/2023 16:33:20 04/01/2024 06821 She is a diabetic? ? ?. Blood [...] Knee pain Active Bridger dan MD [address] , [address], [facility] [place], [address], [place] [facility] 6 14:37:23 Displacement of lumbar intervertebral disc without myelopathy 71461153 Active Bridger dan MD [address] , [address], [facility] [place], [address], [place] [facility] 6 14:37:23 Lumbosacral spondylosis without myelopathy 72408449 Active Bridger dan MD [address] , [address], [facility] [place], [address], [place] [facility] 6 14:37:23 Muscle pain 72015230 Active Bridger dan MD [address] , [address], [facility] [place], [address], [place] [facility] 6 14:37:23 Problem Notes None recorded. Procedures Surgical History Date Name Laterality Status Provider Name and Address Organization Details Recorded Time 04/01/20 24 Lumbar Epidural steroid injection under fluoroscopic guidance completed Bridger Soriano MD [address] , [address], [place], [address], [place] [facility] 04/01/2024 16:41:47 12/27/19 24 Genicular Nerve block completed Bridger Soriano MD [address] , [address], [place], [address], [place] [facility] 12/27/2023 16:34:14 12/11/19 24 Lumbar Epidural steroid injection under fluoroscopic guidance completed Bridger Soriano MD [address] , [address], [place], [address], [place] [facility] 12/11/2023 13:31:06 10/31/19 24 Genicular Nerve block completed Bridger Soriano MD [address] , [address], [place], [address], [place] [facility] 10/31/2023 14:08:55 08/14/19 24 Lumbar Epidural steroid injection under fluoroscopic guidance completed Bridger Soriano MD [address] , [address], [place], [address], [place] [facility] 08/14/2023 13:19:15 07/25/19 24 Genicular Nerve block completed Bridger Soriano MD [address] , [address], [place], [address], [place] [facility] 07/25/2023 14:26:15 04/12/20 23 Intra-articular Knee Steroid Injection completed Bridger Soriano MD [address] , [address], [place], [address], [place] [facility] 04/12/2023 13:55:40 03/21/20 23 Lumbar Epidural steroid injection under fluoroscopic guidance completed Bridger Soriano MD [address] , [address], [place], [address], [place] [facility] 03/21/2023 13:28:50 09/01/19 22 Intra-articular Knee Steroid Injection completed Bridger Soriano MD [address] , [address], [place], [address], [place] [facility] 09/02/2021 10:34:04 06/07/19 22 Lumbar Epidural steroid injection under fluoroscopic guidance completed Bridger Soriano MD [address] , [address], [place], [address], [place] [facility] 06/08/2021 08:41:03 03/24/20 21 Intra-articular Knee Steroid Injection completed Bridger Soriano MD [address] , [address], [place], [address], [place] [facility] 03/24/2021 15:38:55 02/08/20 21 Intra-articular Knee Steroid Injection completed Bridger Soriano MD [address] [facility] , [address], [place], [address], [place] [facility] 02/08/2021 08:53:02 04/12/20 20 Intra-articular Knee Steroid Injection completed Bridger Soriano MD [address] [facility] , [address], [place], [address], [place] [facility] 04/12/2020 15:35:24 01/20/20 20 Intra-articular Knee Steroid Injection completed Bridger Soriano MD [address] [facility] , [address], [place], [address], [place] [facility] 01/20/2020 15:28:58 11/11/19 16 Intra-articular Knee Steroid Injection completed Bridger Soriano MD [address] [facility] , [address], [place], [address], [place] [facility] 11/11/2015 14:57:23 [...] Name and Address Organization Details Recorded Time 79260 Product containin g penicilli n (product) medicatio n rash Not available Not available 10/28/2015 18808 8001 SNOMED Elena hutchison [place] [facility] 6 15:23:45 66159 Keflex medicatio n Not available Not available Not available 10/28/201522851 7 RxNorm Facia l SweLL ING Judith hutchison, [place] [facility] 2 14:17:48 08818 vancomyci n medicatio n Not available Not available Not available 10/28/2015 39114 RxNorm Elena Ramirez kianna [facility] 6 15:23:45 46394 Iodinated contrast media (substanc e) medicatio n other Not available Not available 10/28/2015 44313 2004 SNOMED Right arm tremo rs Elena [...] mcg/0.5 mL intramuscul ar suspension, [facility] 04/12 completed Not Available Not Available Not Available FreeStyle Ladonna 14 Day Sensor kit CHANGE EVERY 14 DAYS DIRECTED active Not Available Not Available No t Available Flucelvax Quad (PF) 60 mcg (15 mcg x 4)/0.5 mL IM syringe 12/17 completed Not Available Not Available Not Available Flucelvax Quad (PF) 60 mcg (15 mcg x 4)/0.5 mL IM syringe [facility] 04/12 completed Not Available Not Available Not [...] Or Recreational Drugs Have You Used? No [id number] Information not available 01/30/2020 Education [employer] Information not available 10/28/2015 Live Alone Or With Others? Alone [email or web address] Information not available 10/28/2015 Marital Status [email or web address] Informatio n not available 10/28/2015 Sex: Unknown Functional Status Question Answer Note LastModified by Organizat ion Details LastModified Time What is your level of alcohol consumption? None [id number] Information not available 01/30/2020 Are you currently employed? 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 [id number] Information not available 01/30/2020 Mental Status None [...] and Address Organization Details Recorded Time Novel [id number], all formulations 3 completed Sunni hutchison [place] - [facility] 03/19/2023 11:10:15 Past Encounters Encounter ID Performer Location Encounter Start Date Encounter Closed Date Diagnosis/Indication Diagnosis SNOMED-CT Code Diagnosis ICD10 Code Diagnosis Note [id number] Bridger Soriano MD PAIN OFFICE [address] [facility],[address] [place] [address] 10/28/2015 14:37:49 11/07/2015 19:52:53 Displacement of lumbar intervertebral disc without myelopathy 07577157 M51.26 Knee pain 47080230 M25.5 62 Lumbosacra l spondylosis without myelopathy 95114947 M47.817 Muscle pain 92074622 M79 .1 [id number] Bridger Soriano MD PAIN OFFICE [address] [place] [address] 11/11/2015 13:35:56 11/11/2015 15:14:43 Knee pain 03514503 M25.562 Displaceme nt of lumbar intervertebral disc without myelopathy 39345829 M51.26 Lumbosacra l spondylosis without myelopathy 96724082 M47.817 Muscle pain 03774249 M79 .1 [id number] Bridger Soriano MD PAIN OFFICE [address] [address] 12/18/2019 13:39:18 12/18/2019 16:05:51 Displacement of lumbar intervertebral disc without myelopathy 25825977 M51.26 Lumbosacra l spondylosis without myelopathy 82582074 M47.817 Knee pain 74990923 M25.5 62 Muscle pain 81282126 M79 .18 [id number] Bridger Soriano MD PAIN OFFICE [address] [address] 01/20/2020 14:58:58 01/20/2020 16:09:34 Knee pain 42815381 M25.562 Displaceme nt of lumbar intervertebral disc without myelopathy 75697316 M51.26 Lumbosacra l spondylosis without myelopathy 71927712 M47.817 Muscle pain 91957452 M79 .18 Anxiety 45613193 F41.9 [id number] Bridger Soriano MD PAIN OFFICE [address] [address] 04/12/2020 15:05:36 04/12/2020 15:47:49 Knee pain 65870858 M25.562 Displaceme nt of lumbar intervertebral disc without myelopathy 78483840 M51.26 Lumbosacra l spondylosis without myelopathy 93793654 M47.817 Muscle pain 27320124 M79 .18 Anxiety 53539495 F41.9 [id number] Bridger Soriano MD [facility] PAIN OFFICE [address] [facility] [place] [place] [address] 04/26/2020 15:03:26 04/27/2020 11:19:16 Knee pain 08887225 M25.562 Displaceme nt of lumbar intervertebral disc without myelopathy 52284473 M51.26 Lumbosacra l spondylosis without myelopathy 63629317 M47.817 Muscle pain 30791870 M79 .18 Anxiety 17039980 F41.9 [id number] Bridger Soriano MD [facility] PAIN OFFICE [address] [facility] [place] [place] [address] 02/07/2021 15:07:39 02/08/2021 08:55:18 Knee pain 07130688 M25.562 Displaceme nt of lumbar intervertebral disc without myelopathy 79781257 M51.26 Lumbosacra l spondylosis without myelopathy 78973860 M47.817 Muscle pain 10631874 M79 .18 Anxiety 55510183 F41.9 [id number] Bridger Soriano MD [facility] PAIN OFFICE [address] [address] 03/24/2021 15:06:19 03/24/2021 15:42:22 Knee pain 45357487 M25.562 Displaceme nt of lumbar intervertebral disc without myelopathy 81310552 M51.26 Lumbosacra l spondylosis without myelopathy 15674343 M47.817 Muscle pain 81479808 M79 .18 Anxiety 35920791 F41.9 [id number] Bridger Soriano MD [facility] PAIN OFFICE [address] [facility] [place] [place] [address] 06/07/2021 13:30:02 06/08/2021 08:44:36 Displacement of lumbar intervertebral disc without myelopathy 79326935 M51.26 Lumbosacra l spondylosis without myelopathy 23691378 M47.817 Knee pain 03393509 M25.5 62 Muscle pain 35818492 M79 .18 [id number] Bridger Soriano MD [facility] PAIN OFFICE [address] [facility] [place] [place] [address] 08/31/2021 14:13:59 09/02/2021 10:35:50 Knee pain 71168485 M25.562 Displaceme nt of lumbar intervertebral disc without myelopathy 03472830 M51.26 Lumbosacra l spondylosis without myelopathy 77007050 M47.817 Muscle pain 34169863 M79 .18 Anxiety 66110351 F41.9 [id number] Bridger Soriano MD PAIN OFFICE [address] [facility] [place] [place] [address] 03/19/2023 10:58:59 03/19/2023 15:21:25 Lumbosacral spondylosis without myelopathy 52602802 M47.817 Displaceme nt of lumbar intervertebral disc without myelopathy 61593114 M51.26 Knee pain 84041920 M25.5 62 Muscle pain 42869000 M79 .18 [id number] Bridger Soriano MD PAIN OFFICE [address] [address] 03/21/2023 13:01:27 03/21/2023 14:25:30 Displacement of lumbar intervertebral disc without myelopathy 16047992 M51.26 Lumbosacra l spondylosis without myelopathy 65364713 M47.817 Knee pain 40556801 M25.5 62 Muscle pain 63858577 M79 .18 Lumbar radiculopathy 128 280601 M54.16 [id number] Bridger Soriano MD PAIN OFFICE [address] [address] 04/12/2023 13:30:59 04/12/2023 13:58:00 Knee pain 14201876 M25.562 Osteoarthr itis of knee 054299504 M17.11 [id number] Bridger Soriano MD PAIN OFFICE [address] [facility] [place] [address] 07/25/2023 13:26:45 07/25/2023 14:55:44 Osteoarthritis of knee 833013890 M17.11 [id number] Bridger Soriano MD PAIN OFFICE [address] [place] [address] 08/14/2023 11:28:40 08/14/2023 15:55:58 Displacement of lumbar intervertebral disc without myelopathy 12224309 M51.26 Lumbosacra l spondylosis without myelopathy 21877672 M47.817 Knee pain 09756777 M25.5 62 Muscle pain 17808053 M79 .18 Lumbar radiculopathy 128 646929 M54.16 [id number] Bridger Soriano MD PAIN OFFICE [address] [place] [address] 10/31/2023 13:33:33 10/31/2023 16:13:12 Knee pain 41431764 M25.562 Osteoarthr itis of knee 378323130 M17.12 [id number] Bridger Soriano MD PAIN OFFICE [address] [place] [address] 12/11/2023 13:07:11 12/11/2023 14:55:52 Lumbar radiculopathy 303289813 M54.16 Displaceme nt of lumbar intervertebral disc without myelopathy 30636672 M51.26 [id number] Bridger Soriano MD PAIN OFFICE [address] [place] [address] 12/27/2023 13:38:10 12/27/2023 17:06:15 Knee pain 61127975 M25.562 Osteoarthr itis of knee 888591172 M17.11 [id number] Bridger Soriano MD PAIN OFFICE [address] [facility] [place] [address] 04/01/2024 11:04:31 04/01/2024 16:59:44 Lumbar radiculopathy 794240877 M54.16 Displaceme nt of lumbar intervertebral disc without myelopathy 57463634 M51.26 Health Concerns Section Related Observation LastModified by Organization Detai ls LastModified Time None Recorded Concern Status LastModified by Organization Details LastModified Time None Recorded Advance Directives Directive None Recorded Payers Encounter Date Sequence Insurance Name Policy Number Policy Tatum Covered Member ID Tatum Member ID Guarantor Name 08/14/2023 1 [place] [place] [id number] [place] 10/31/2023 1 [place] [id number] [place] 12/11/2023 1 [place] [id number] [place] 12/27/2023 1 [place] [id number] [place] 04/01/2024 1 [place] [id number] [place] Notes Date Note Type Note Provider Name and Address Organization Details Recorded Time 08/14/2023 text/html She is here for a lumbar epidural steroid injection under fluoroscopic guidance. Bridger Soriano MD [address] , [address], [place], [address], [place] [facility] 08/14/2023 16:05:20 10/31/2023 text/html She is here for a left genicular nerve block under fluoroscopic guidance Bridger Soriano MD [address] , [address], [place], [address], [place] [facility] 11/01/2023 10:27:51 12/11/2023 text/html She is here for a lumbar epidural steroid injection under fluoroscopic guidance. Bridger Soriano MD [address] , [address], [place], [address], [place] [facility] 12/11/2023 16:04:51 12/27/2023 text/html She is here for a right genicular nerve block under fluoroscopic guidance Bridger Soriano MD [address] , [address], [place], [address], [place] [facility] 12/28/2023 09:59:49 04/01/2024 text/html She is here for a lumbar epidural steroid injection under fluoroscopic guidance. Bridger Soriano MD [address] , [address], [place], [address], [place] [facility] 04/01/2024 17:08:43 OBGyn Episode No OBEpisode recorded.
== END 2024-09-02 14:43 | disposition home or self-care (01) ==
LOC: HO.HKAS 13:43
PROVIDERS: PCP Internal Medicine; Visit Provider Internal Medicine Nephrology
DX: N18.31 Chronic kidney disease, stage 3a (principal); I10 Essential (primary) hypertension; E79.0 Hyperuricemia without signs of inflammatory arthritis and tophaceous disease
CPT/HCPCS: 99214

== ENCOUNTER 2024-09-02 13:43 | Outpatient (REF) | payer BC, SELFPAY ==
--- OUTSIDE RECORDS SUMMARY | 2024-09-02 15:40 | XMS_ITS | Clinical Summary ---
Author Organization [facility] Address [address] [place] [address] Care Team Providers Care Pull Over Machine Operator Name Role Phone Benji Salcedo MD [...] age to complete this topic Care Teams Pull Over Machine Operator Relationship Specialty Start Date End Date Benji Salcedo MD PCP - General Internal Medicine 09/10/14
--- OUTSIDE RECORDS SUMMARY | 2024-09-02 15:40 | XMS_ITS | Encounter Summary ---
Author Organization [facility] Address [address] [place] [address] Phone Care Team Providers Care Miter Operator Name Role Phone Benji Salcedo MD Primary Care Provider [phone] Encounter Details Date Type Department Care Team (Late st Contact Info) Description 08/15/2022 Telephone [facility] [address] [place] [address] Sue Tinoco Social History Tobacco [...] on filedocumented in this encounter Care Teams Miter Operator Relationship Specialty Start Date End Date Benji Salcedo MD [address] [place] [address] PCP - General 04/26/20 documented as of this encounter
--- OUTSIDE RECORDS SUMMARY | 2024-09-02 15:40 | XMS_ITS | Encounter Summary ---
Author Organization [facility] Address [address] [place] [address] Phone Care Team Providers Care Dedicated Intermodal Truck Driver Name Role Phone Benji Salcedo MD Primary Care Provider [phone] Encounter Details Date Type Department Care Team (Late st Contact Info) Description 08/29/2021 Telephone [facility] [address] [place] [address] Taqueria Hook MD Social History [...] side of her back. Please advise CB# [phone] Thank you documented in this encounter Plan of Treatment Not on file documented as of this encounter Visit Diagnoses Not on filedocumented in this encounter Care Teams Dedicated Intermodal Truck Driver Relationship Specialty Start Date End Date Benji Salcedo MD [address] [facility] [address] [place] [address] PCP - General 04/26/20 documented as of this encounter
--- OUTSIDE RECORDS SUMMARY | 2024-09-02 15:40 | XMS_ITS | Encounter Summary ---
Author Organization [facility] Address [address] [place] [address] Phone Care Team Providers Care Director Of Knowledge Management Name Role Phone Benji Salcedo MD Primary Care Provider [phone] Encounter Details Date Type Department Care Team (Late st Contact Info) Description 07/13/2021 Telephone [facility] [address] [place] [address] Noy Tuttle Social History Tobacco [...] on filedocumented in this encounter Care Teams Director Of Knowledge Management Relationship Specialty Start Date End Date Benji Salcedo MD [address] [facility] [address] [place] [address] PCP - General 04/26/20 documented as of this encounter
--- OUTSIDE RECORDS SUMMARY | 2024-09-02 15:40 | XMS_ITS | Clinical Summary ---
Author Organization [facility] Address [address] [place] [address] [address] [place] [address] Phone Care Team Providers Care Header Setup Operator Name Role Phone Benji Salcedo MD Primary Care Provider [phone] Allergies Active Allergy Reactions Criticality Noted Date [...] patient's age to complete this topic Insurance [facility] Care Teams Header Setup Operator Relationship Specialty Start Date End Date Benji Salcedo MD [address] [place] [address] PCP - General 04/26/20
[2024-09-02 18:35] LABS: Uric Acid 8.6 mg/dL (2.4-5.7)
== END 2024-09-02 13:44 | disposition home or self-care (01) ==
LOC: CF 13:43
PROVIDERS: PCP Internal Medicine; Visit Provider Internal Medicine Nephrology
DX: E79.0 Hyperuricemia without signs of inflammatory arthritis and tophaceous disease (principal)
CPT/HCPCS: 36415; 84550

== ENCOUNTER 2024-09-12 13:15 | Outpatient (AMB) | payer BC, SELFPAY ==
--- OUTSIDE RECORDS SUMMARY | 2024-09-12 13:25 | XMS_ITS | Data Portability ---
Author Organization [facility] PAIN OFFICE Address [address] [facility] [address] [place] [address] Care Team Providers Care Skip Hoist Operator Name Role Phone HELENE QUEZADA Primary Care Provider [phone] Assessment Encounter Date Assessment Date Assessment LastModified [...] By Organization Details Last Modified Time 10/31/2023 [id number] She was advised against bed rest lasting longer than four days and to continue activities as tolerated. [email or web address] Not available 10/31/2023 14:07:55 12/11/2023 [id number] She is a diabetic . Blood sugar levels may temporarily increase after steroid injections. She was advised to check blood glucose levels three times a day post procedure. If levels are above 250, she was advised to contact the PCP. [email or web address] Not available 12/11/2023 13:32:29 12/27/2023 [id number] She was advised against bed rest lasting longer than four days and to continue activities as tolerated. [email or web address] Not available 12/27/2023 16:33:20 04/01/2024 [id number] She is a diabetic . Blood sugar levels may temporarily increase after steroid injections. She was advised to check blood glucose levels three times a day post procedure. If levels are above 250, she was advised to contact the PCP. [email or web address] Not available 04/01/2024 16:41:21 Reason for Referral None Reported. Problems Name Problem SNOMED Code Status Onset Date Resolution Date Notes Provider Name and Address Organization Details Recorded Time Knee pain Active Bridger dan MD [address] [facility] , [address], [place], [address], [place] [facility] 6 14:37:23 Displacement of lumbar intervertebral disc without myelopathy 02740495 Active Bridger dan MD [address] [facility] , [address], [place], [address], [place] [facility] 6 14:37:23 Lumbosacral spondylosis without myelopathy 23045495 Active Bridger dan MD [address] [facility] , [address], [place], [address], [place] [facility] 6 14:37:23 Muscle pain 34195069 Active Bridger dan MD [address] , [address], [place], [address], [place] [facility] 6 14:37:23 Problem Notes None recorded. Procedures Surgical History Date Name Laterality Status Provider Name and Address Organization Details Recorded Time 04/01/20 24 Lumbar Epidural steroid injection under fluoroscopic guidance completed Bridger Soriano MD [address] , [address], [place], [address], [place] [facility] 04/01/2024 16:41:47 12/27/19 24 Genicular Nerve block completed Bridger Soriano MD [address] [facility] , [address], [place], [address], [place] [facility] 12/27/2023 16:34:14 12/11/19 24 Lumbar Epidural steroid injection under fluoroscopic guidance completed Bridger Soriano MD [address] , [address], [place], [address], [place] [facility] 12/11/2023 13:31:06 10/31/19 24 Genicular Nerve block completed Bridger Soriano MD [address] , [address], [place], [address], [place] [facility] 10/31/2023 14:08:55 08/14/19 24 Lumbar Epidural steroid injection under fluoroscopic guidance completed Bridger Soriano MD [address] , [address], [place], [address], [place] [facility] 08/14/2023 13:19:15 07/25/19 24 Genicular Nerve block completed Bridger oSriano MD [address] , [address], [place], [address], [place] [facility] 07/25/2023 14:26:15 04/12/20 23 Intra-articular Knee Steroid Injection completed Bridger Soriano MD [address] , [address], [place], [address], [place] [facility] 04/12/2023 13:55:40 03/21/20 23 Lumbar Epidural steroid injection under fluoroscopic guidance completed Bridger Soriano MD [address] , [address], [place], [address], [place] [facility] 03/21/2023 13:28:50 09/01/19 22 Intra-articular Knee Steroid Injection completed Bridger Soriano MD [address] , [address], [place], [address], [place] [facility] 09/02/2021 10:34:04 06/07/19 22 Lumbar Epidural steroid injection under fluoroscopic guidance completed Bridger Soriano MD [address] , [address], [place], [address], [place] [facility] 06/08/2021 08:41:03 03/24/20 21 Intra-articular Knee Steroid Injection completed Bridger Soriano MD [address] , [address], [place], [address], [place] [facility] 03/24/2021 15:38:55 02/08/20 21 Intra-articular Knee Steroid Injection completed Bridger Soriano MD [address] , [address], [place], [address], [place] [facility] 02/08/2021 08:53:02 04/12/20 20 Intra-articular Knee Steroid Injection completed Bridger Soriano MD [address] , [address], [place], [address], [place] [facility] 04/12/2020 15:35:24 01/20/20 20 Intra-articular Knee Steroid Injection completed Bridger Soriano MD [address] [facility] , [address], [place], [address], [place] [facility] 01/20/2020 15:28:58 11/11/19 16 Intra-articular Knee Steroid Injection completed Bridger Soriano MD [address] [facility] , [address], [place], [address], [place] [facility] 11/11/2015 14:57:23 [...] Name and Address Organization Details Recorded Time 62307 Product containin g penicilli n (product) medicatio n rash Not available Not available 10/28/2015 57412 8001 SNOMED Elena [place]utch[place], [place] [facility] 6 15:23:45 95886 Keflex medicatio n Not available Not available Not available 10/28/201535861 7 RxNorm Facia l SweLL LEOBARDO [place], [place] [facility] 2 14:17:48 56400 vancomyci n medicatio n Not available Not available Not available 10/28/2015 13113 RxNorm Elena [place], [place] [facility] 6 15:23:45 59659 Iodinated contrast media (substanc e) medicatio n other Not available Not available 10/28/2015 57721 2003 SNOMED Right arm tremo rs Elena Ramirez kianna [place] [facility] 6 15:23:45 Medications Name Sig [...] mcg/0.5 mL intramuscul ar suspension, kit [facility] 04/12 completed Not Available Not Available Not Available FreeStyle Ladonna 14 Day Sensor kit CHANGE EVERY 14 DAYS DIRECTED active Not Available Not Available No t Available Flucelvax Quad (PF) 60 mcg (15 mcg x 4)/0.5 mL IM syringe 12/17 completed Not Available Not Available Not Available Flucelvax Quad (PF) 60 mcg (15 mcg x 4)/0.5 mL IM syringe [facility] 04/12 completed Not Available Not Available Not [...] 98 % 122 mm[Hg] 71 mm[Hg] Judith Berrymecca [facility] 4 11:34:34 Date Recorded Body height Heart rate Oxygen saturation Oxygen saturation in Arterial blood by Pulse oximetry Systolic blood pressure Diastolic blood pressure Provider Name and Address Organization Details Last Updated DateTime 4 162.56 cm 72 /min 96 % 96 % 96 mm[Hg] 59 mm[Hg] Casieroman manuel [place] [facility] 4 [...] 88 /min 116 mm[Hg] 63 mm[Hg] Casie Hoodadrian o [place] [facility] 4 13:42:06 Date Recorded Body height Heart rate Oxygen saturation Oxygen saturation in Arterial blood by Pulse oximetry Systolic blood pressure Diastolic blood pressure Provider Name and Address Organization Details Last Updated DateTime 4 162.56 cm 82 /min 98 % 98 % 127 mm[Hg] 61 mm[Hg] Judith Berrymecca [place] [facility] 4 11:08:45 Social History Question Answer Notes LastModified by Organizat ion Details LastModified Time Tobacco Smoking Status Never Smoker Not Available [employer] 01/30/2020 03:16:10 Which Illicit Or Recreational Drugs Have You Used? No [id number] Information not available 01/30/2020 Education [employer] Information not available 10/28/2015 Live Alone Or With Others? Alone Information not available 10/28/2015 Marital Status [email or web address] Informatio n not available 10/28/2015 Sex: Unknown Functional Status Question Answer Note LastModified by Organizat ion Details LastModified Time What is your level of alcohol consumption? None [id number] Information not available 01/30/2020 Are you currently employed? 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 [id number] Information not available 01/30/2020 Mental Status None [...] and Address Organization Details Recorded Time Novel [id number]-[id number], all formulations 3 completed Sunni hutchison [place] [facility] 03/19/2023 11:10:15 Past Encounters Encounter ID Performer Location Encounter Start Date Encounter Closed Date Diagnosis/Indication Diagnosis SNOMED-CT Code Diagnosis ICD10 Code Diagnosis Note [id number] Bridger Soriano MD PAIN OFFICE [address] [facility],[address] [place] [address] 10/28/2015 14:37:49 11/07/2015 19:52:53 Displacement of lumbar intervertebral disc without myelopathy 01860306 M51.26 Knee pain 23529723 M25.5 62 Lumbosacra l spondylosis without myelopathy 57596690 M47.817 Muscle pain 87180390 M79 .1 [id number] Bridger Soriano MD PAIN OFFICE [address] [place] [address] 11/11/2015 13:35:56 11/11/2015 15:14:43 Knee pain 07758725 M25.562 Displaceme nt of lumbar intervertebral disc without myelopathy 31941579 M51.26 Lumbosacra l spondylosis without myelopathy 40182893 M47.817 Muscle pain 44123399 M79 .1 [id number] Bridger Soriano MD PAIN OFFICE [address] [place] [address] 12/18/2019 13:39:18 12/18/2019 16:05:51 Displacement of lumbar intervertebral disc without myelopathy 34550670 M51.26 Lumbosacra l spondylosis without myelopathy 89664393 M47.817 Knee pain 75874637 M25.5 62 Muscle pain 70433463 M79 .18 [id number] Bridger Soriano MD PAIN OFFICE [address] [place] [address] 01/20/2020 14:58:58 01/20/2020 16:09:34 Knee pain 52479737 M25.562 Displaceme nt of lumbar intervertebral disc without myelopathy 08687231 M51.26 Lumbosacra l spondylosis without myelopathy 13951449 M47.817 Muscle pain 19762086 M79 .18 Anxiety 29773368 F41.9 [id number] Bridger Soriano MD PAIN OFFICE [address] [place] [address] 04/12/2020 15:05:36 04/12/2020 15:47:49 Knee pain 05552068 M25.562 Displaceme nt of lumbar intervertebral disc without myelopathy 64886517 M51.26 Lumbosacra l spondylosis without myelopathy 55367730 M47.817 Muscle pain 24806810 M79 .18 Anxiety 44591005 F41.9 [id number] Bridger Soriano MD PAIN OFFICE [address] [place] [address] 04/26/2020 15:03:26 04/27/2020 11:19:16 Knee pain 53448343 M25.562 Displaceme nt of lumbar intervertebral disc without myelopathy 31739340 M51.26 Lumbosacra l spondylosis without myelopathy 29208652 M47.817 Muscle pain 75214172 M79 .18 Anxiety 91367959 F41.9 [id number] Bridger Soriano MD PAIN OFFICE [address] [facility] [place] [address] 02/07/2021 15:07:39 02/08/2021 08:55:18 Knee pain 05982815 M25.562 Displaceme nt of lumbar intervertebral disc without myelopathy 20020120 M51. Lumbosacra l spondylosis without myelopathy 36026339 M47.817 Muscle pain 04006437 M79 .18 Anxiety 41754059 F41.9 [id number] Bridger Soriano MD PAIN OFFICE [address] [place] [address] 03/24/2021 15:06:19 03/24/2021 15:42:22 Knee pain 38328112 M25.562 Displaceme nt of lumbar intervertebral disc without myelopathy 20020120 M51.26 Lumbosacra l spondylosis without myelopathy 42230589 M47.817 Muscle pain 94248526 M79 .18 Anxiety 42664508 F41.9 [id number] Bridger Soriano MD PAIN OFFICE [address] [facility] [place] [address] 06/07/2021 13:30:02 06/08/2021 08:44:36 Displacement of lumbar intervertebral disc without myelopathy 39901824 M51.26 Lumbosacra l spondylosis without myelopathy 99223102 M47.817 Knee pain 68086389 M25.5 62 Muscle pain 10693606 M79 .18 [id number] Bridger Soriano MD PAIN OFFICE [address] [facility] [place] [address] 08/31/2021 14:13:59 09/02/2021 10:35:50 Knee pain 63775848 M25.562 Displaceme nt of lumbar intervertebral disc without myelopathy 69539169 M51.26 Lumbosacra l spondylosis without myelopathy 15936030 M47.817 Muscle pain 09978069 M79 .18 Anxiety 94264817 F41.9 [id number] Bridger Soriano MD PAIN OFFICE [address] [place] [address] 03/19/2023 10:58:59 03/19/2023 15:21:25 Lumbosacral spondylosis without myelopathy 40420629 M47.817 Displaceme nt of lumbar intervertebral disc without myelopathy 19688648 M51.26 Knee pain 82045790 M25.5 62 Muscle pain 37152793 M79 .18 [id number] Bridger Soriano MD PAIN OFFICE [address] [place] [address] 03/21/2023 13:01:27 03/21/2023 14:25:30 Displacement of lumbar intervertebral disc without myelopathy 51911388 M51.26 Lumbosacra l spondylosis without myelopathy 32470859 M47.817 Knee pain 46473330 M25.5 62 Muscle pain 71486579 M79 .18 Lumbar radiculopathy 128 238524 M54.16 [id number] Bridger Soriano MD PAIN OFFICE [address] [place] [address] 04/12/2023 13:30:59 04/12/2023 13:58:00 Knee pain 47485113 M25.562 Osteoarthr itis of knee 803421459 M17.11 [id number] Bridger Soriano MD PAIN OFFICE [address] [place] [address] 07/25/2023 13:26:45 07/25/2023 14:55:44 Osteoarthritis of knee 785840647 M17.11 [id number] Bridger Soriano MD PAIN OFFICE [address] [place] [address] 08/14/2023 11:28:40 08/14/2023 15:55:58 Displacement of lumbar intervertebral disc without myelopathy 39232035 M51.26 Lumbosacra l spondylosis without myelopathy 93067440 M47.817 Knee pain 37818982 M25.5 62 Muscle pain 09124578 M79 .18 Lumbar radiculopathy 128 555608 M54.16 [id number] Bridger Soriano MD PAIN OFFICE [address] [facility] [place] [address] 10/31/2023 13:33:33 10/31/2023 16:13:12 Knee pain 92874616 M25.562 Osteoarthr itis of knee 104006092 M17.12 [id number] Bridger Soriano MD PAIN OFFICE [address] [facility] [place] [address] 12/11/2023 13:07:11 12/11/2023 14:55:52 Lumbar radiculopathy 588414081 M54.16 Displaceme nt of lumbar intervertebral disc without myelopathy 00793760 M51.26 [id number] Bridger Soriano MD PAIN OFFICE [address] [facility] [place] [address] 12/27/2023 13:38:10 12/27/2023 17:06:15 Knee pain 70666629 M25.562 Osteoarthr itis of knee 899489419 M17.11 [id number] Bridger Soriano MD PAIN OFFICE [address] [facility] [place] [address] 04/01/2024 11:04:31 04/01/2024 16:59:44 Lumbar radiculopathy 028733366 M54.16 Displaceme nt of lumbar intervertebral disc without myelopathy 85250902 M51.26 Health Concerns Section Related Observation LastModified by Organization Detai ls LastModified Time None Recorded Concern Status LastModified by Organization Details LastModified Time None Recorded Advance Directives Directive None Recorded Payers Encounter Date Sequence Insurance Name Policy Number Policy Tatum Covered Member ID Tatum Member ID Guarantor Name 08/14/2023 1 [place] [employer] Belgica Barrios [place] [id number] Belgica [place] 10/31/2023 1 [place] Belgica Barrios [place] [id number] [employer] [place] 12/11/2023 1 [place] [employer] Belgica Barrios [place] [id number] [employer] [place] 12/27/2023 1 [place] [employer] Belgica Barrios [place] [id number] [employer] [place] 04/01/2024 1 [place] [employer] Belgica Barrios [place] [id number] [employer] [place] Notes Date Note Type Note Provider Name and Address Organization Details Recorded Time 08/14/2023 text/html She is here for a lumbar epidural steroid injection under fluoroscopic guidance. Bridger Soriano MD [address] , [address], [place], [address], [place] [facility] 08/14/2023 16:05:20 10/31/2023 text/html She is here for a left genicular nerve block under fluoroscopic guidance Bridger Soriano MD [address] , [address], [place], [address], [place] [facility] 11/01/2023 10:27:51 12/11/2023 text/html She is here for a lumbar epidural steroid injection under fluoroscopic guidance. Bridger Soriano MD [address] , [address], [place], [address], [place] [facility] 12/11/2023 16:04:51 12/27/2023 text/html She is here for a right genicular nerve block under fluoroscopic guidance Bridger Soriano MD [address] , [address], [place], [address], [place] [facility] 12/28/2023 09:59:49 04/01/2024 text/html She is here for a lumbar epidural steroid injection under fluoroscopic guidance. Bridger Soriano MD [address] , [address], [place], [address], [place] [facility] 04/01/2024 17:08:43 OBGyn Episode No OBEpisode recorded.
[2024-09-12 13:34] VITALS: BP 132/66; PULSE 88; TEMP 36.9; O2SAT 97; BMI 33.5
--- NOTE | 2024-09-12 13:34 | AM.OFFWIN_ITS ---
Intake Vital Signs 09/12/24 13:34 Height 5 ft 4 in Weight 195 lb BMI 33.5 BP 132/66 Blood Pressure Location Lt brachial Position Sitting Pulse 88 Pulse Source Pulse Oximeter Temp 98.5 F Temp Source Oral Pulse Oximetry (%) 97 Oxygen Delivery Method Room Air Intake Visit Reasons: EP Gout RT FT Intake Note: Pt presents to the office today for c/o gout on her right foot since June. Pt states she was put on Allopurinol by Dr. oHok for her gout but she states she believes she is getting a rash due to the medication. Patient Tobacco Use Status: Never used Tobacco Allergies Iodinated Contrast Media [IV CONTRAST] Allergy (Severe, Verified 09/12/24 13:37) SEIZURE vancomycin [VANCOMYCIN] Allergy (Severe, Verified 09/12/24 13:37) ITCHING, SOB doxycycline [DOXYCYCLINE] Allergy (Intermediate, Verified 09/12/24 13:37) DIFFICULTY SWALLOWING Penicillins [PENICILLINS] Allergy (Intermediate, Verified 09/12/24 13:37) RASH cephalexin [From KEFLEX] Allergy (Unknown, Verified 09/12/24 13:37) RASH Sulfa (Sulfonamide Antibiotics) [SULFA (SULFONAMIDE ANTIBIOTICS)] Allergy (Unknown, Verified 09/12/24 13:37) UNKNOWN HPI HPI Comments History of Present Illness Details History of Present Illness - The patient is a 69-year-old female pr esenting with an acute exacerbation of gout. - The patient's symptoms began following a dietary intake of corned beef on June 30, leading to significant pain and difficulty ambulating. - Initial assessment included x-rays dem onstrating degenerative arthritis. - A course of allopurinol resulted in si de effects such as nocturnal itching, and uric acid levels were measured at 8.6. - Previous gout attacks had been treated with steroid tapers and colchicine but the taper has never worked well and stopped the gout attack. - The persistence of symptoms has been n oted over the past two and a half months. - Discussed management includes steroid use with dietary modifications to address blood sugar levels elevated by corticosteroids. Physical Exam General: Cooperative, healthy appearing, comfortable, no acute distress and well developed Orientation: Patient oriented x3 Limitations: Patient reports difficulty walking due to pain Head: Normal to inspection Ears: Hearing grossly normal bilaterally Nose: Normal External nose present Face and sinus: Normal facial exam Eyes: Appearance normal, both eyes and all related structures Neck: Normal visual inspection and Yes full ROM Respiratory: Normal respiratory effort and able to speak in complete sentences. Skin: No rashes or lesions noted Neuro: Patient oriented x3, limping gait Extremities: TTP right lateral mid foot, no skin changes, slight edema left lateral midfoot. full ROM and NVI toes on left foot. [facility] Medical History (Updated 09/12/24 @ 14:15 by Clara Christian PA-C) GINA (obstructive sleep apnea) Gout On beta kamar at home Chronic headaches Splenic artery aneurysm Meningioma HTN (hypertension) Surgical History Hx laparoscopic cholecystectomy (~2013) History of hysterectomy History of History of colonoscopy (~08/2018) Family History Father Family hx of colon cancer Mother Hx of breast cancer Paternal Grandmother Colon cancer Social History Household Members: None Housing: House Alcohol intake: never Patient Tobacco Use Status: Never used Tobacco e-Cigarette/Vaping Use: Never Used service: No Cognitive needs: No Hearing needs: No Vision needs: No Review of Systems Const All systems reviewed & are unremarkable except as noted in HPI and below Physical Exam Vital Signs: Last Vital Signs Temp 98.5 F 09/12/24 13:34 Pulse 88 09/12/24 13:34 BP 132/66 09/12/24 13:34 Pulse Ox 97 09/12/24 13:34 Oxygen Delivery Method Room Air 09/12/24 13:34 BMI result Body Mass Index 33.5 Assessment & Plan Assessment & Plan (1) Skin tear of hand without complication: Code(s): S61.419A - Laceration without foreign body of unspecified hand, initial encounter Qualifiers: Encounter type: initial encounter Laterality: left Qualified Code(s): S61.412A - Laceration without foreign body of left hand, initial encounter Plan: Diluted bacitracin into sterile saline and then irrigated the wound. Applied 3 thin Steri-Strips to hold the skin tear down with a Band-Aid covering it. Recommended she removed the Band-Aid while at home but cover the wound when she goes out into public. Watch for signs of infection such as drainage, tenderness, redness or fevers and return to the clinic if these develop. (2) Gout: Code(s): M10.9 - Gout, unspecified Qualifiers: Gout site: foot Encounter type: initial encounter Chronicity: acute Laterality: right Plan: For the acute gout exacerbation, I will initiate a five-day course of corticosteroids at 50 mg daily to achieve rapid symptom relief. This approach is supported by the patient's elevated uric acid levels and prior response history indicating steroid efficacy. The possibility of transitioning to colchicine due to allopurinol side effects has been discussed, and recommendations for contacting Dr. Salcedo for potential medication adjustments have been provided. While addressing elevated blood sugar risk during steroid therapy, dietary modifications focusing on low carbohydrate intake were recommended to control transient hyperglycemia. Management strategies were comprehensively discussed with the patient, outlining the anticipated benefits and potential side effects of treatment modalities. Patient was informed and verbally consented to the use of an ambient scribe for clinic note documentation during this visit. Medications: New prednisone 50 mg PO QAM 5 tabs 0RF Coding Level of Care Code New Pt Level 4 (65496) Diagnoses Skin tear of left hand without complication, initial encounter S61.412A Encounter type: initial encounter Laterality: left Gout M10.9 Gout site: foot Encounter type: initial encounter Chronicity: acute Laterality: right
== END 2024-09-12 14:43 | disposition home or self-care (01) ==
PROVIDERS: PCP Internal Medicine; Visit Provider Physician Assistant
DX: S61.412A Laceration without foreign body of left hand, initial encounter (principal); M10.9 Gout, unspecified

== ENCOUNTER → 2024-09-12 13:15 | Outpatient (BNVA) | payer BC, SELFPAY | PROVIDERS: PCP Internal Medicine; Visit Provider Physician Assistant | DX: Z13.89 Encounter for screening for other disorder (principal) ==

== ENCOUNTER 2024-10-22 15:55 | Outpatient (AMB) | payer BC, SELFPAY ==
[2024-10-22 15:58] VITALS: BP 100/58; PULSE 97; TEMP 37.2; O2SAT 95; BMI 32.4
--- NOTE | 2024-10-22 15:58 | MHC.OFFWIV ---
Intake Vital Signs 10/22/24 15:58 Height 5 ft 4 in Weight 189 lb BMI 32.4 BP 100/58 L Blood Pressure Location Rt brachial Position Sitting Pulse 97 Pulse Source Pulse Oximeter Temp 99.0 F Temp Source Oral Pulse Oximetry (%) 95 Oxygen Delivery Method Room Air Intake Visit Reasons: EP Pain in foot from walking boot Intake Note: Patient presents pain in the right foot from walking boot that her has had since yesterday Patient Tobacco Use Status: Never used Tobacco Is last menstrual period known: No Post menopausal: Yes Patient : No Allergies Iodinated Contrast Media (IV CONTRAST) Allergy (Severe, Verified 09/12/24 13:37) SEIZURE vancomycin (VANCOMYCIN) Allergy (Severe, Verified 09/12/24 13:37) ITCHING, SOB doxycycline (DOXYCYCLINE) Allergy (Intermediate, Verified 09/12/24 13:37) DIFFICULTY SWALLOWING Penicillins (PENICILLINS) Allergy (Intermediate, Verified 09/12/24 13:37) RASH cephalexin (From KEFLEX) Allergy (Unknown, Verified 09/12/24 13:37) RASH Sulfa (Sulfonamide Antibiotics) (SULFA (SULFONAMIDE ANTIBIOTICS)) Allergy (Unknown, Verified 09/12/24 13:37) UNKNOWN Do you need a note to return to daycare/school/sports/work: No HPI HPI Comments History of Present Illness Details History of Present Illness - The patient is a 69-year-old female presenting with persistent right foot pain and swelling for months now. - Initially suspected to be gout, the condition was later identified as involving torn tendons and a bone contusion through MRI. - The patient has been experiencing significant pain and swelling despite treatment with allopurinol and Aleve, which she is advised against due to kidney concerns. - The patient's diabetes complicates the management of her foot condition, limiting treatment options such as steroid injections. - She has been using a boot for support, but reports balance issues and discomfort. - The patient has had adverse reactions to tramadol, including nightmares and suicidal thoughts. - Follow-up with a student education specialist in [place] is planned, with the MRI disc to be provided for further evaluation. Physical Exam General: Cooperative, healthy appearing, comfortable, no acute distress and well developed Orientation: Patient oriented x3 Limitations: No limitations Head: Normal to inspection Ears: Hearing grossly normal bilaterally Nose: Normal External nose present Face and sinus: Normal facial exam Eyes: Appearance normal, both eyes and all related structures Neck: Normal visual inspection and Yes full ROM Respiratory: Normal respiratory effort and able to speak in complete sentences. Skin: No rashes or lesions noted Neuro: Patient oriented x3 Extremities: right foot with slight edema, no erythema or skin changes, onychomycosis of the left toenails, unkempt feet bilaterally. [facility], [facility] Medical History (Updated 10/22/24 @ 16:26 by Clara Christian PA-C) GINA (obstructive sleep apnea) Gout On beta kamar at home Chronic headaches Splenic artery aneurysm Meningioma HTN (hypertension) Surgical History Hx laparoscopic cholecystectomy (~2013) History of hysterectomy History of History of colonoscopy (~08/2018) Family History Father Family hx of colon cancer Mother Hx of breast cancer Paternal Grandmother Colon cancer Social History Household Members: None Housing: House Alcohol intake: never Patient Tobacco Use Status: Never used Tobacco e-Cigarette/Vaping Use: Never Used service: No Cognitive needs: No Hearing needs: No Vision needs: No Review of Systems Const All systems reviewed & are unremarkable except as noted in HPI and below Physical Exam Vital Signs: Last Vital Signs Temp 99.0 F 10/22/24 15:58 Pulse 97 10/22/24 15:58 Pulse Ox 95 10/22/24 15:58 Oxygen Delivery Method Room Air 10/22/24 15:58 BMI result Body Mass Index 32.4 Assessment & Plan Assessment & Plan (1) Right foot pain: Code(s): M79.671 - Pain in right foot Plan: Plan - Stop taking all NSAIDS as they are very bad for your kidneys. You can try Tylenol or voltaren gel. - Continue boot for support and balance management, as well as to manage her pain. - Follow-up with a student education specialist in [place], providing the MRI disc for further evaluation. - Explore non-steroidal options for pain management due to diabetes and adverse reactions to tramadol. - Use compression stockings, ice, and elevation to manage swelling. Patient was informed and verbally consented to the use of an ambient scribe for clinic note documentation during this visit. (2) Difficulty walking involving foot: Code(s): R26.2 - Difficulty in walking, not elsewhere classified Plan: as above Coding Level of Care Code New Pt Level 3 (42981) Diagnoses Right foot pain M79.671 Difficulty walking involving foot R26.2
--- OUTSIDE RECORDS SUMMARY | 2024-10-22 15:58 | XMS_ITS | Clinical Summary ---
Author Organization [facility] Address [address] [place] [address] Care Team Providers Care Director Of Music Name Role Phone Benji Salcedo MD Primary [...] 1 - PCV) 2019 Influenza Vaccine (#1) 2024 01/24/2020 RSV Adult > 60+ Yrs or Pregn ant (1 - 1-dose 75+ series) 2029 Hepatitis B Vaccines Aged Out No long er eligible based on patient's age to complete this topic RSV Ped < 20 months Aged Out No longe r eligible based on patient's age to complete this topic Care Teams Director Of Music Relationship Specialty Start Date End Date Benji Salcedo MD PCP - General Internal Medicine 09/10/14
--- OUTSIDE RECORDS SUMMARY | 2024-10-22 15:58 | XMS_ITS | Data Portability ---
Author Organization [facility] Address [address] [facility] [address] [place] [address] Care Team Providers Care Integrated Circuits Inspector Name Role Phone HELENE QUEZADA Primary Care [...] needs to follow up in four weeks. [email or web address] Not available 08/14/2023 13:19:42 10/31/2023 10/31/2023 Belgica [...] injection under fluoroscopic guidance in 4 weeks. [email or web address] Not available 10/31/2023 14:09:41 12/11/2023 12/11/2023 Belgica [...] By Organization Details Last Modified Time 10/31/2023 [id number] She was advised against bed rest lasting longer than four days and to continue activities as tolerated. [email or web address] Not available 10/31/2023 14:07:55 12/11/2023 [id number] She is a diabetic . Blood sugar levels may temporarily increase after steroid injections. She was advised to check blood glucose levels three times a day post procedure. If levels are above 250, she was advised to contact the PCP. [email or web address] Not available 12/11/2023 13:32:29 12/27/2023 [id number] She was advised against bed rest lasting longer than four days and to continue activities as tolerated. [email or web address] Not available 12/27/2023 16:33:20 04/01/2024 [id number] She is a diabetic . Blood sugar [...] Knee pain Active Bridger dan MD [address] , [address], [place], [address], [place] [facility] 6 14:37:23 Displacement of lumbar intervertebral disc without myelopathy [id number] Active Bridger dan MD [address] , [address], [place], [address], [place] [facility] 6 14:37:23 Lumbosacral spondylosis without myelopathy [id number] Active Bridger dan MD [address] , [address], [place], [address], [place] [facility] 6 14:37:23 Muscle pain 48198719 Active Bridger dan MD [address] , [address], [place], [address], [place] [facility] 6 14:37:23 Problem Notes None recorded. Procedures Surgical History Date Name Laterality Status Provider Name and Address Organization Details Recorded Time 04/01/20 24 Lumbar Epidural steroid injection under fluoroscopic guidance completed Bridger Soriano MD [address] , [address], [place], [address], [place] [facility] 04/01/2024 16:41:47 12/27/19 24 Genicular Nerve block completed Bridger Soriano MD [address] , [address], [place], [address], [place] [facility] 12/27/2023 16:34:14 12/11/19 24 Lumbar Epidural steroid injection under fluoroscopic guidance completed Bridger Soriano MD [address] , [address], [place], [address], [place] [facility] 12/11/2023 13:31:06 10/31/19 24 Genicular Nerve block completed Bridger Soriano MD [address] , [address], [place], [address], [place] [facility] 10/31/2023 14:08:55 08/14/19 24 Lumbar Epidural steroid injection under fluoroscopic guidance completed Bridger Soriano MD [address] , [address], [place], [address], [place] [facility] 08/14/2023 13:19:15 07/25/19 24 Genicular Nerve block completed Bridger Soriano MD [address] , [address], [place], [address], [place] [facility] 07/25/2023 14:26:15 04/12/20 23 Intra-articular Knee Steroid Injection completed Bridger Soriano MD [address] , [address], [place], [address], [place] [facility] 04/12/2023 13:55:40 03/21/20 23 Lumbar Epidural steroid injection under fluoroscopic guidance completed Bridger Soriano MD [address] , [address], [place], [address], [place] [facility] 03/21/2023 13:28:50 09/01/19 22 Intra-articular Knee Steroid Injection completed Bridger Soriano MD [address] , [address], [place], [address], [place] [facility] 09/02/2021 10:34:04 06/07/19 22 Lumbar Epidural steroid injection under fluoroscopic guidance completed Bridger Soriano MD [address] , [address], [place], [address], [place] [facility] 06/08/2021 08:41:03 03/24/20 21 Intra-articular Knee Steroid Injection completed Bridger Soriano MD [address] , [address], [place], [address], [place] [facility] 03/24/2021 15:38:55 02/08/20 21 Intra-articular Knee Steroid Injection completed Brid[facility] [address] [facility] [address], [place], [address], [place] [facility] 02/08/2021 08:53:02 04/12/20 20 Intra-articular Knee Steroid Injection completed Bridger Soriano [facility] [address] [facility] [address], [place], [address], [place] [facility] 04/12/2020 15:35:24 01/20/20 20 Intra-articular Knee Steroid Injection completed Brid[facility]iano [facility] [address] [facility] [address], [place], [address], [place] [facility] 01/20/2020 15:28:58 11/11/19 16 Intra-articular Knee Steroid Injection completed Brid[facility] [address] [facility] [address], [place], [address], [place] [facility] 11/11/2015 14:57:23 04/16/19 14 Cholecystectomy completed Elenaaltaf Ramirez [place] - [facility] 10/28/2015 15:23:45 Hysterectomy completed Elenaaltaf Ramirez [place] - [facility] 10/28/2015 15:23:45 Caesarean Section completed Elenaaltaf Ramirez [place] - [facility] 10/28/2015 15:23:45 Imaging Results None recorded. Procedure Notes None recorded. Medical Equipment None Reported. Allergies Allergen ID Allergen Name Allergen Category Reaction Reaction Severity Criticality Documentation Date Start Date Code Code System Note Provider Name and Address Organization Details Recorded Time 38701 Product containin g penicilli n (product) medicatio n rash Not available Not available 10/28/2015 24173 8001 SNOMED Elena hutchison [place] [facility] 6 15:23:45 82325 Keflex medicatio n Not available Not available Not available 10/28/201580635 7 RxNorm Facia l SweLL LEOBARDO [place], [place] - [facility] 2 14:17:48 25902 vancomyci n medicatio n Not available Not available Not available 10/28/201589001 RxNorm Elena hutchison [facility] 6 15:23:45 32895 Iodinated contrast media (substanc e) medicatio n other Not available Not available 10/28/2015 28956 2003 SNOMED Right arm tremo rs Elena hutchison [facility] 6 15:23:45 Medications Name Sig [...] in Arterial blood by Pulse oximetry Systolic And Diastolic Provider Name and Address Organization Details Last Updated DateTime 4 162.56 cm 72 /min 98 % 98 % 122/71 mm[Hg] Judith Emily [place] [facility] 4 11:34:34 Date Recorded Body height Heart rate Oxygen saturation Oxygen saturation in Arterial blood by Pulse oximetry Systolic And Diastolic Provider Name and Address Organization Details Last Updated DateTime 4 162.56 cm 72 /min 96 % 96 % 96/59 mm[Hg] Casie manuel [place] - [facility] 4 13:39:02 Date Recorded Body height Heart rate Oxygen saturation Oxygen saturation in Arterial blood by Pulse oximetry Systolic And Diastolic Provider Name and Address Organization Details Last Updated DateTime 4 162.56 cm 80 /min 97 % 97 % 112/62 mm[Hg] Judith Berrymecca [place] - [facility] 4 13:10:01 Date Recorded Body height Oxygen saturation Oxygen saturation in Arterial blood by Pulse oximetry Heart rate Systolic And Diastolic Provider Name and Address Organization Details Last Updated DateTime 4 162.56 cm 97 % 97 % 88 /min 116/63 mm[Hg] Casie manuel [place] - [facility] 4 13:42:06 Date Recorded Body height Heart rate Oxygen saturation Oxygen saturation in Arterial blood by Pulse oximetry Systolic And Diastolic Provider Name and Address Organization Details Last Updated DateTime 4 162.56 cm 82 /min 98 % 98 % 127/61 mm[Hg] Judith Berrymecca [place] - [facility] 4 11:08:45 Social History Question Answer Notes LastModified by Organizat ion Details LastModified Time Tobacco Smoking Status Never Smoker Not Available [facility] 01/30/2020 03:16:10 Which Illicit Or Recreational Drugs Have You Used? No [id number] Information not available 01/30/2020 Education [employer] Information not available 10/28/2015 Live Alone Or With Others? Alone Information not available 10/28/2015 Marital Status Informatio n not available 10/28/2015 Sex: Unknown Functional Status Question Answer Note LastModified by Organizat ion Details LastModified Time What is your level of alcohol consumption? None [id number] Information not available 01/30/2020 Are you currently employed? 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 Family History Relationship Description Onset Age of this Age Resolved Age Notes LastModified by Organization Details LastModified Time Father Diabetes mellitus Heart diseas e [email or web address] Not available 11/11/2015 14:33:41 Paternal Grandmother Malignant neoplastic disease Colon [email or web address] Not available 10/15 14:33:41 Mother Malignant neoplastic disease Breast [email or web address] Not available 10/15 14:33:41 Medical History Condition Response Depression Y Arthritis Y Asthma Y Hypertension Y Gynecological HistoryNo gynecological history recorded. Obstetrics History GPAL:G 0 P 0 0 0 0 Immunizations Vaccine Type Date Status Note Provider Nam e and Address Organization Details Recorded Time Novel [id number], all formulations 3 completed Sunni hutchison [place] - [facility] 03/19/2023 11:10:15 Past Encounters Encounter ID Performer Location Encounter Start Date Encounter Closed Date Diagnosis/Indication Diagnosis SNOMED-CT Code Diagnosis ICD10 Code Diagnosis Note [id number] Bridger Soriano MD [facility] [address] [facility] [address] [facility] [place] [address] 10/28/2015 14:37:49 11/07/2015 19:52:53 Displacement of lumbar intervertebral disc without myelopathy 57027622 M51.26 Knee pain 99587470 M25.5 62 Lumbosacra l spondylosis without myelopathy 85752180 M47.817 Muscle pain 94551871 M79 .1 [id number] Bridger Soriano MD PAIN OFFICE [address] [facility] [place] [address] 11/11/2015 13:35:56 11/11/2015 15:14:43 Knee pain 01368019 M25.562 Displaceme nt of lumbar intervertebral disc without myelopathy 82445543 M51.26 Lumbosacra l spondylosis without myelopathy 69192544 M47.817 Muscle pain 75641506 M79 .1 [id number] Bridger Soriano MD PAIN OFFICE [address] [facility] [place] [address] 12/18/2019 13:39:18 12/18/2019 16:05:51 Displacement of lumbar intervertebral disc without myelopathy 89344799 M51.26 Lumbosacra l spondylosis without myelopathy 63238007 M47.817 Knee pain 26350954 M25.5 62 Muscle pain 82318476 M79 .18 [id number] Bridger Soriano MD PAIN OFFICE [address] [place] [address] 01/20/2020 14:58:58 01/20/2020 16:09:34 Knee pain 82215055 M25.562 Displaceme nt of lumbar intervertebral disc without myelopathy 20020120 M51.26 Lumbosacra l spondylosis without myelopathy 64941401 M47.817 Muscle pain 42155310 M79 .18 Anxiety 96104557 F41.9 [id number] Bridger Soriano MD PAIN OFFICE [address] [facility] [place] [address] 04/12/2020 15:05:36 04/12/2020 15:47:49 Knee pain 77136326 M25.562 Displaceme nt of lumbar intervertebral disc without myelopathy 89545714 M51.26 Lumbosacra l spondylosis without myelopathy 33111805 M47.817 Muscle pain 82864926 M79 .18 Anxiety 86111007 F41.9 [id number] Bridger Soriano MD PAIN OFFICE [address] [address] 04/26/2020 15:03:26 04/27/2020 11:19:16 Knee pain 37916292 M25.562 Displaceme nt of lumbar intervertebral disc without myelopathy 42113016 M51. Lumbosacra l spondylosis without myelopathy 30445131 M47.817 Muscle pain 20850203 M79 .18 Anxiety 94663949 F41.9 [id number] Bridger Soriano MD PAIN OFFICE [address] [place] [address] 02/07/2021 15:07:39 02/08/2021 08:55:18 Knee pain 30315032 M25.562 Displaceme nt of lumbar intervertebral disc without myelopathy 40407394 M51. Lumbosacra l spondylosis without myelopathy 51266191 M47.817 Muscle pain 87361959 M79 .18 Anxiety 30646706 F41.9 [id number] Bridger Soriano MD PAIN OFFICE [address] [place] [address] 03/24/2021 15:06:19 03/24/2021 15:42:22 Knee pain 13505397 M25.562 Displaceme nt of lumbar intervertebral disc without myelopathy 20020120 M51. Lumbosacra l spondylosis without myelopathy 32080762 M47.817 Muscle pain 05205687 M79 .18 Anxiety 62879651 F41.9 [id number] Bridger Soriano MD PAIN OFFICE [address] [place] [address] 06/07/2021 13:30:02 06/08/2021 08:44:36 Displacement of lumbar intervertebral disc without myelopathy 33785621 M51.26 Lumbosacra l spondylosis without myelopathy 04086374 M47.817 Knee pain 77469720 M25.5 62 Muscle pain 52015189 M79 .18 [id number] Bridger Soriano MD PAIN OFFICE [address] [place] [address] 08/31/2021 14:13:59 09/02/2021 10:35:50 Knee pain 37081243 M25.562 Displaceme nt of lumbar intervertebral disc without myelopathy 01223561 M51.26 Lumbosacra l spondylosis without myelopathy 27757668 M47.817 Muscle pain 34286484 M79 .18 Anxiety 68052121 F41.9 [id number] Bridger Soriano MD PAIN OFFICE [address] [place] [address] 03/19/2023 10:58:59 03/19/2023 15:21:25 Lumbosacral spondylosis without myelopathy 92008941 M47.817 Displaceme nt of lumbar intervertebral disc without myelopathy 97595463 M51.26 Knee pain 01388617 M25.5 62 Muscle pain 21268722 M79 .18 [id number] Bridger Soriano MD PAIN OFFICE [address] [place] [address] 03/21/2023 13:01:27 03/21/2023 14:25:30 Displacement of lumbar intervertebral disc without myelopathy 16957836 M51.26 Lumbosacra l spondylosis without myelopathy 77815543 M47.817 Knee pain 45790027 M25.5 62 Muscle pain 97836105 M79 .18 Lumbar radiculopathy 128 295886 M54.16 [id number] Bridger Soriano MD PAIN OFFICE [address] [place] [address] 04/12/2023 13:30:59 04/12/2023 13:58:00 Knee pain 64009041 M25.562 Osteoarthr itis of knee 346880162 M17.11 [id number] Bridger Soriano MD PAIN OFFICE [address] [place] [address] 07/25/2023 13:26:45 07/25/2023 14:55:44 Osteoarthritis of knee 808316850 M17.11 [id number] Bridger Soriano MD PAIN OFFICE [address] [place] [address] 08/14/2023 11:28:40 08/14/2023 15:55:58 Displacement of lumbar intervertebral disc without myelopathy 48039935 M51.26 Lumbosacra l spondylosis without myelopathy 67791160 M47.817 Knee pain 93210924 M25.5 62 Muscle pain 05157848 M79 .18 Lumbar radiculopathy 128 852639 M54.16 [id number] Bridger Soriano MD PAIN OFFICE [address] [place] [address] 10/31/2023 13:33:33 10/31/2023 16:13:12 Knee pain 55324063 M25.562 Osteoarthr itis of knee 496424489 M17.12 [id number] Bridger Soriano MD PAIN OFFICE [address] [facility] [place] [address] 12/11/2023 13:07:11 12/11/2023 14:55:52 Lumbar radiculopathy 440496841 M54.16 Displaceme nt of lumbar intervertebral disc without myelopathy 74564051 M51.26 [id number] Bridger Soriano MD PAIN OFFICE [address] [place] [address] 12/27/2023 13:38:10 12/27/2023 17:06:15 Knee pain 01964981 M25.562 Osteoarthr itis of knee 685476355 M17.11 [id number] Bridger Soriano MD PAIN OFFICE [address] [place] [address] 04/01/2024 11:04:31 04/01/2024 16:59:44 Lumbar radiculopathy 739492783 M54.16 Displaceme nt of lumbar intervertebral disc without myelopathy 34465769 M51.26 Health Concerns Section Related Observation LastModified by Organization Detai ls LastModified Time None Recorded Concern Status LastModified by Organization Details LastModified Time None Recorded Advance Directives Directive None Recorded Payers Insurance Date Sequence Insurance Name Policy Number Policy Tatum Covered Member ID Tatum Member ID Guarantor Name 07/19/2024 1 [facility]: [employer] [id number] [id number] Belgica Pierce 12/11/2023 1 [facility] [address] [place] [id number] [place] Notes Date Note Type Note Provider Name and Address Organization Details Recorded Time 08/14/2023 text/html She is here for a lumbar epidural steroid injection under fluoroscopic guidance. Bridger Soriano MD [address] [facility] , [address], [place], [address], [place] [facility] 08/14/2023 16:05:20 10/31/2023 text/html She is here for a left genicular nerve block under fluoroscopic guidance Bridger Soriano MD [address] , [address], [place], [address], [place] [facility] 11/01/2023 10:27:51 12/11/2023 text/html She is here for a lumbar epidural steroid injection under fluoroscopic guidance. Bridger Soriano MD [address] [facility] , [address], [place], [address], [place] [facility] 12/11/2023 16:04:51 12/27/2023 text/html She is here for a right genicular nerve block under fluoroscopic guidance Bridger Soriano MD [address] , [address], [place], [address], [place] [facility] 12/28/2023 09:59:49 04/01/2024 text/html She is here for a lumbar epidural steroid injection under fluoroscopic guidance. Bridger Soriano MD [address] [facility] , [address], [place], [address], [place] [facility] 04/01/2024 17:08:43 OBGyn Episode No OBEpisode recorded.
--- OUTSIDE RECORDS SUMMARY | 2024-10-22 15:58 | XMS_ITS ---
Author Name [facility] Organization Unknown History of Medication Use Medication Directions Dispensed Refills Start Date End Date Stat us colchicine 0.6 mg tablet TAKE 1 TABLET BY ORAL ROUTE 3 TIMES EVERY DAY X 1 DAY THEN DECRAESE TO 1 TIME A DAY 08/15/19 completed FreeStyle Ladonna 14 Day Sensor kit CHANGE EVERY 14 DAYS DIRECTED 08/15/19 active hydrochlorothiazide 12.5 mg tablet TAKE 1 TABLET BY MOUTH 1 TIME EACH DAY. 08/15/19 completed prednisone 20 mg tablet TAKE 1 TABLET BY MOUTH 1 TIME EACH DAY FOR 10 DAYS. 08/15/19 completed tramadol 50 mg tablet TAKE 1 TABLET BY MOUTH EVERY 12 HOURS NEEDED 08/15/19 completed amlodipine 10 mg-olmesartan 20 mg tablet active metoprolol tartrate 50 mg tablet TAKE 1 TABLET BY MOUTH TWICE A DAY WITH MEALS active Trulicity 0.75 mg/0.5 mL subcutaneous pen injector INJECT 1 PEN ONCE WEEKLY active Allergies Allergen Reaction Severity Comment Documented Date Source Statu s PENICILLINS ENS_[facility]ECT VANCOMYCIN [facility] Problems Problem Status Onset Date Problem Type Date of Resoluti on Source Osteoarthritis of left knee joint active 2022-08-15 ProblemAct [facility] Osteoarthritis of right knee joint active 2022-08-15 ProblemAct [facility] Encounters Encounter Type Encounter Reason Primary Diagnosis Location Date Ambulatory [facility] [place] 12/01/2022 Ambulatory [facility] [place] 11/23/2022 Ambulatory [facility] 10/27/2022 Ambulatory [facility] [place] 10/27/2022 Ambulatory [facility] [place] 10/19/2022 Ambulatory [facility] [place] 09/22/2022 Ambulatory [facility] [place] 09/15/2022 Ambulatory [facility] [place] 09/13/2022 Ambulatory [facility] [place] 08/31/2022 Ambulatory [facility] [place] 08/14/2022 Ambulatory [facility] [place] 08/07/2022
--- OUTSIDE RECORDS SUMMARY | 2024-10-22 15:58 | XMS_ITS | Clinical Summary ---
Author Organization [facility] Address [address] [place] [address] Phone Care Team Providers Care Slunk Skin Curer Name Role Phone Benji Salcedo MD Primary Care Provider [phone] Encounters Date Type Department Care Team Description 10/10/2024 1:33 PM EDT - 10/10/2024 11:59 PM EDT Hospital Encounter [facility] MRI [address] [place] [address] Right foot pain Discharge Disposition: Home or Self Care from Last 3 Months Surgical History Surgery Date Site/Laterality Comments SECTION PROCEDURE: SECTION CHOLECYSTECTOMY PROCEDURE:CHOLECYSTECTOMY Medical History Medical History Date Comments Family history of cardiovascular disease DX:Family history of cardiovascular disease Essential hypertension DX:Essent ial hypertension Diabetes mellitus (CMS/HCC V 24, CMS/HCC V28) DX:Diabetes mellitus (HCC) Hypertension DX:Hypertension Kidney damage DX:Kidney damage Family History Medical History Relation Name Comments Cancer Father Diabetes Father Other: Cardiomyopathy Father Cancer Mother Relation Name Status Comments Father Mother Social History Tobacco Use Types Packs/Day Years Used Date Smoking Tobacco: Never Assessed Comments Unknown Sex and Gender Information Value Date Recorded Sex Assigned at Not on file Legal Sex Female 4:01 AM EST Gender Identity Not on file Sexual Orientation Not on file Obstetrics History Plan of Treatment Health Maintenance Due Date Last Done Comments Breast Cancer Screening 1955 Zoster Vaccines (2 of 2) 03/20/2020 01/24/2020 COVID-19 Vaccine ( season) 2023 04/29/2021, 08/23/2020, 08/02/2020 Cholesterol Screening (Lipid Panel) 10/08/2024 Colorectal Cancer Screening: Colonoscopy 10/08/2024 Depression Screening 10/08/2024 Falls Risk Assessment 10/08/2024 Hepatitis C Screening 10/08/2024 Osteoporosis Screening (Bone Density Screening) 10/08/2024 Social Influencers of Health Screening 10/08/2024 Hypertension/CHF/CAD Annual BMP Blood Test 10/10/2024 Influenza Vaccine (#1) 2024 4, 01/16/2023, 01/10/2022, Additional history exists RSV Immunization Adult Patients (1 - 1-dose 75+ series) 2029 DTaP,Tdap,and Td Vaccines (2 - Td or Tdap) 07/06/2031 07/05/2021 Pneumococcal Vaccine: 50+ Years Completed 01/17/2022, 04/26/2006 HIB Vaccines Aged Out No longer eligi ble based on patient's age to complete this topic HPV Vaccines Aged Out No longer eligi ble based on patient's age to complete this topic Hepatitis A Vaccines Aged Out No long er eligible based on patient's age to complete this topic Hepatitis B Vaccines Aged Out No long er eligible based on patient's age to complete this topic IPV Vaccines Aged Out No longer eligi ble based on patient's age to complete this topic MMR Vaccines Aged Out No longer eligi ble based on patient's age to complete this topic Meningococcal ACWY Vaccine Aged Out N o longer eligible based on patient's age to complete this topic Meningococcal B Vaccine Aged Out No l onger eligible based on patient's age to complete this topic RSV Immunization Patients Under 20 months Aged Out No longer eligible based on patient's age to complete this topic Varicella Vaccines Aged Out No longer eligible based on patient's age to complete this topic Procedures Procedure Name Priority Date/Time Associated Diagnosis Comments MR FOOT WO CONTRAST RIGHT Routine 10/10/2024 3:16 PM EDT Right foot pain from Last 3 Months Results * MR Foot wo Contrast Right (10/10/2024 3:16 PM EDT) Anatomical Region Laterality Modality Lower Extremities, Foot Right Magnetic Resonance 10/10/2024 2:58 PM EDT Impressions 10/10/2024 3:08 PM EDT 1. No evidence of a fracture. 2. Degenerative marrow edema and subchondral cystic change at the lateral base of the 2nd metatarsal. 3. Degenerative irregularity and partial tearing of the 1st plantar plate. 4. Peroneus longus tendinopathy. -------- FINAL REPORT -------- Dictated By: Sebastian Chaves Dictated Date: 10/10/2024 14:58 ET Assigned Physician: Sebastian Chaves Reviewed and Electronically Signed By: Sebastian Chaves Signed Date: 10/10/2024 15:08 ET Workstation ID: [id number] Transcribed By: Self Edit Transcribed Date: 10/10/2024 14:58 ET Narrative 10/10/2024 3:08 PM EDT PROCEDURE: MRI of the right mid midfoot without intravenous contrast administration. HISTORY: right foot pain. Abnormal bone scan. Suspected midfoot fracture. COMPARISON: No prior study available for comparison. TECHNIQUE: Multiplanar multisequence MRI of the right midfoot without intravenous contrast administration. FINDINGS: Mild generalized soft tissue edema, more prominent along the dorsal foot. No soft tissue mass or focal fluid collection. There is signal abnormality and irregularity of the 1st plantar plate. The Lisfranc and intermetatarsal ligaments are normal. Visualized portions of the plantar fascia are normal. Tendinopathy of the peroneus longus tendon at the level of the calcaneocuboid articulation. The other visualized tendons are normal. Marrow edema and subchondral cystic change at the lateral base of the 2nd metatarsal at the articulation with the 3rd metatarsal. No evidence of a fracture. Procedure Note Sebastian Chaves MD - 10/10/2024 PROCEDURE: MRI of the right mid midfoot without intravenous contrastadministration. HISTORY: right foot pain. Abnormal bone scan. Suspected midfootfracture. COMPARISON: No prior study available for comparison. TECHNIQUE: Multiplanar multisequence MRI of the right midfoot withoutintravenous contrast administration. FINDINGS: Mild generalized soft tissue edema, more prominent along the dorsal foot.No soft tissue mass or focal fluid collection. There is signal abnormality and irregularity of the 1st plantar plate. The Lisfranc and intermetatarsal ligaments are normal. Visualized portions of the plantar fascia are normal. Tendinopathy of the peroneus longus tendon at the level of thecalcaneocuboid articulation. The other visualized tendons are normal. Marrow edema and subchondral cystic change at the lateral base of the 2ndmetatarsal at the articulation with the 3rd metatarsal. No evidence of a fracture. IMPRESSION: 1. No evidence of a fracture. 2. Degenerative marrow edema and subchondral cystic change at the lateralbase of the 2nd metatarsal. 3. Degenerative irregularity and partial tearing of the 1st plantarplate. 4. Peroneus longus tendinopathy. -------- FINAL REPORT -------- Dictated By: Sebastian Chaves Dictated Date: 10/10/2024 14:58 ET Assigned Physician: Sebastian Chaves Reviewed and Electronically Signed By: Sebastian Chaves Signed Date: 10/10/2024 15:08 ET Workstation ID: [id number] Transcribed By: Self Edit Transcribed Date: 10/10/2024 14:58 ET Benji Salcedo MD IMG MRI PROCEDURES Final Resul t from Last 3 Months Insurance MEDICARE Care Teams Slunk Skin Curer Relationship Specialty Start Date End Date Benji Salcedo MD PCP - General Internal Medicine 04/02/08
--- OUTSIDE RECORDS SUMMARY | 2024-10-22 15:58 | XMS_ITS | Encounter Summary ---
Author Organization [facility] Address [address] [place] [address] Phone Care Team Providers Care Nut Steamer Name Role Phone Benji Salcedo MD Primary Care Provider [phone] Encounter Details Date Type Department Care Team (Late st Contact Info) Description 07/13/2021 Telephone [facility] [address] [place] [address] [place] Social History Tobacco [...] on filedocumented in this encounter Care Teams Nut Steamer Relationship Specialty Start Date End Date Benji Salcedo MD [address] [facility] [address] [place] [address] PCP - General 04/26/20 documented as of this encounter
== END 2024-10-22 17:05 | disposition home or self-care (01) ==
PROVIDERS: PCP Internal Medicine; Visit Provider Physician Assistant
DX: M79.671 Pain in right foot (principal); R26.2 Difficulty in walking, not elsewhere classified

== ENCOUNTER 2024-10-28 12:16 | Emergency (ER) | payer BC, SELFPAY ==
--- NOTE | 2024-10-28 | ECG_ITS ---
Test Reason : DIZZINESS Blood Pressure : */* mmHG Vent. Rate : 84 BPM Atrial Rate : 84 BPM P-R Int : 172 ms QRS Dur : 98 ms QT Int : 386 ms P-R-T Axes : 61 57 -6 degrees QTcB Int : 456 ms Normal sinus rhythm Possible Inferior infarct , age undetermined Abnormal ECG When compared with ECG of 11-Jan-2024 12:46, Premature ventricular complexes are no longer Present Premature atrial complexes are no longer Present T wave inversion now evident in Inferior leads Referred By: Generic ED Physician Electronically Signed By: FABY HENDRCIKSON
[2024-10-28 12:33] VITALS: BP 139/69; PULSE 100; PULSE 94; RESP 16; TEMP 36.3; O2SAT 99; BMI 28.7
[2024-10-28 12:38] VITALS: BP 139/69; PULSE 94; RESP 16; TEMP 36.3; O2SAT 99
--- OUTSIDE RECORDS SUMMARY | 2024-10-28 13:55 | XMS_ITS | Data Portability ---
Author Organization [facility] Address [address] [facility] [address] [place] [address] Care Team Providers Care Director Appointment Name Role Phone HELENE QUEZADA Primary Care [...] By Organization Details Last Modified Time 10/31/2023 [id number] She was advised against bed rest lasting longer than four days and to continue activities as tolerated. [email or web address] Not available 10/31/2023 14:07:55 12/11/2023 [id number] She is a diabetic . Blood sugar levels may temporarily increase after steroid injections. She was advised to check blood glucose levels three times a day post procedure. If levels are above 250, she was advised to contact the PCP. [email or web address] Not available 12/11/2023 13:32:29 12/27/2023 [id number] She was advised against bed rest lasting longer than four days and to continue activities as tolerated. [email or web address] Not available 12/27/2023 16:33:20 04/01/2024 [id number] She is a diabetic . Blood sugar [...] Knee pain Active Bridger dan MD [address] , [address], [place], [address], [place] [facility] 6 14:37:23 Displacement of lumbar intervertebral disc without myelopathy 07371466 Active Bridger dan MD [address] , [address], [place], [address], [place] [facility] 6 14:37:23 Lumbosacral spondylosis without myelopathy 39711495 Active Bridger dan MD [address] , [address], [place], [address], [place] [facility] 6 14:37:23 Muscle pain 05689901 Active Bridger dan MD [address] , [address], [place], [address], [place] [facility] 6 14:37:23 Problem Notes None recorded. Procedures Surgical History Date Name Laterality Status Provider Name and Address Organization Details Recorded Time 04/01/20 24 Lumbar Epidural steroid injection under fluoroscopic guidance completed Bridger Soriano MD [address] , [address], [place], [address], [place] [facility] 04/01/2024 16:41:47 12/27/19 24 Genicular Nerve block completed Bridger Soriano MD [address] , [address], [place], [address], [place] [facility] 12/27/2023 16:34:14 12/11/19 24 Lumbar Epidural steroid injection under fluoroscopic guidance completed Bridger Soriano MD [address] , [address], [place], [address], [place] [facility] 12/11/2023 13:31:06 10/31/19 24 Genicular Nerve block completed Bridger Soriano MD [address] , [address], [place], [address], [place] [facility] 10/31/2023 14:08:55 08/14/19 24 Lumbar Epidural steroid injection under fluoroscopic guidance completed Bridger Soriano MD [address] , [address], [place], [address], [place] [facility] 08/14/2023 13:19:15 07/25/19 24 Genicular Nerve block completed Bridger Soriano MD [address] , [address], [place], [address], [place] [facility] 07/25/2023 14:26:15 04/12/20 23 Intra-articular Knee Steroid Injection completed Bridger Soriano MD [address] , [address], [place], [address], [place] [facility] 04/12/2023 13:55:40 03/21/20 23 Lumbar Epidural steroid injection under fluoroscopic guidance completed Bridger Soriano MD [address] , [address], [place], [address], [place] [facility] 03/21/2023 13:28:50 09/01/19 22 Intra-articular Knee Steroid Injection completed Bridger Soriano MD [address] , [address], [place], [address], [place] [facility] 09/02/2021 10:34:04 06/07/19 22 Lumbar Epidural steroid injection under fluoroscopic guidance completed Bridger Soriano MD [address] , [address], [place], [address], [place] [facility] 06/08/2021 08:41:03 03/24/20 21 Intra-articular Knee Steroid Injection completed Bridger Soriano MD [address] , [address], [place], [address], [place] [facility] 03/24/2021 15:38:55 02/08/20 21 Intra-articular Knee Steroid Injection completed Bridger Soriano MD [address] [facility] , [address], [place], [address], [place] [facility] 02/08/2021 08:53:02 04/12/20 20 Intra-articular Knee Steroid Injection completed Bridger Soriano MD [address] [facility] , [address], [place], [address], [place] [facility] 04/12/2020 15:35:24 01/20/20 20 Intra-articular Knee Steroid Injection completed Bridger Soriano MD [address] [facility] , [address], [place], [address], [place] [facility] 01/20/2020 15:28:58 11/11/19 16 Intra-articular Knee Steroid Injection completed Bridger Soriano MD [address] [facility] , [address], [place], [address], [place] [facility] 11/11/2015 14:57:23 [...] Name and Address Organization Details Recorded Time 15050 Product containin g penicilli n (product) medicatio n rash Not available Not available 10/28/2015 22234 8001 SNOMED Elena hutchison [place] [facility] 6 15:23:45 89685 Keflex medicatio n Not available Not available Not available 10/28/201593818 7 RxNorm Facia l SweLL LEOBARDO hutchison, [place] [facility] 2 14:17:48 62489 vancomyci n medicatio n Not available Not available Not available 10/28/201521091 RxNorm Elena hutchison [facility] 6 15:23:45 43250 Iodinated contrast media (substanc e) medicatio n other Not available Not available 10/28/2015 97175 2003 SNOMED Right arm tremo rs Elena [...] mcg/0.5 mL intramuscul ar suspension, kit [facility] 04/12 completed Not Available Not Available Not Available FreeStyle Ladonna 14 Day Sensor kit CHANGE EVERY 14 DAYS DIRECTED active Not Available Not Available No t Available Flucelvax Quad (PF) 60 mcg (15 mcg x 4)/0.5 mL IM syringe 12/17 completed Not Available Not Available Not Available Flucelvax Quad (PF) 60 mcg (15 mcg x 4)/0.5 mL IM syringe [facility] 04/12 completed Not Available Not Available Not [...] Tobacco Smoking Status Never Smoker Not Available [facility] 01/30/2020 03:16:10 Which Illicit Or Recreational Drugs Have You Used? No [id number] Information not available 01/30/2020 Education [employer] Information not available 10/28/2015 Live Alone Or With Others? Alone Information not available 10/28/2015 Marital Status Informatio n not available 10/28/2015 Sex: Unknown Functional Status Question Answer Note LastModified by Organizat ion Details LastModified Time What is your level of alcohol consumption? None [id number] Information not available 01/30/2020 Are you currently employed? 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 [address] [facility] [place] [address] 10/28/2015 14:37:49 11/07/2015 19:52:53 Displacement of lumbar intervertebral disc without myelopathy 31628368 M51.26 Knee pain 75343259 M25.5 62 Lumbosacra l spondylosis without myelopathy 00393116 M47.817 Muscle pain 06003745 M79 .1 [id number] Bridger Soriano MD PAIN OFFICE [address] [facility] [place] [address] 11/11/2015 13:35:56 11/11/2015 15:14:43 Knee pain 07002601 M25.562 Displaceme nt of lumbar intervertebral disc without myelopathy 96097448 M51.26 Lumbosacra l spondylosis without myelopathy 11524203 M47.817 Muscle pain 93647728 M79 .1 [id number] Bridger Soriano MD PAIN OFFICE [address] [facility] [place] [address] 12/18/2019 13:39:18 12/18/2019 16:05:51 Displacement of lumbar intervertebral disc without myelopathy 84008302 M51.26 Lumbosacra l spondylosis without myelopathy 97652893 M47.817 Knee pain 48265779 M25.5 62 Muscle pain 31946676 M79 .18 [id number] Bridger Soriano MD PAIN OFFICE [address] [place] [address] 01/20/2020 14:58:58 01/20/2020 16:09:34 Knee pain 20884095 M25.562 Displaceme nt of lumbar intervertebral disc without myelopathy 20020120 M51.26 Lumbosacra l spondylosis without myelopathy 53195632 M47.817 Muscle pain 18252301 M79 .18 Anxiety 49317872 F41.9 [id number] Bridger Soriano MD PAIN OFFICE [address] [facility] [place] [address] 04/12/2020 15:05:36 04/12/2020 15:47:49 Knee pain 29358229 M25.562 Displaceme nt of lumbar intervertebral disc without myelopathy 26516867 M51.26 Lumbosacra l spondylosis without myelopathy 58005756 M47.817 Muscle pain 32013731 M79 .18 Anxiety 48805188 F41.9 [id number] Bridger Soriano MD PAIN OFFICE [address] [address] 04/26/2020 15:03:26 04/27/2020 11:19:16 Knee pain 39520689 M25.562 Displaceme nt of lumbar intervertebral disc without myelopathy 12538020 M51. Lumbosacra l spondylosis without myelopathy 29400800 M47.817 Muscle pain 12844756 M79 .18 Anxiety 64196535 F41.9 [id number] Bridger Soriano MD PAIN OFFICE [address] [place] [address] 02/07/2021 15:07:39 02/08/2021 08:55:18 Knee pain 60692889 M25.562 Displaceme nt of lumbar intervertebral disc without myelopathy 09263016 M51. Lumbosacra l spondylosis without myelopathy 40035891 M47.817 Muscle pain 48795053 M79 .18 Anxiety 00795488 F41.9 [id number] Bridger Soriano MD PAIN OFFICE [address] [place] [address] 03/24/2021 15:06:19 03/24/2021 15:42:22 Knee pain 43976098 M25.562 Displaceme nt of lumbar intervertebral disc without myelopathy 20020120 M51. Lumbosacra l spondylosis without myelopathy 89301414 M47.817 Muscle pain 51163576 M79 .18 Anxiety 35274918 F41.9 [id number] Bridger Soriano MD PAIN OFFICE [address] [place] [address] 06/07/2021 13:30:02 06/08/2021 08:44:36 Displacement of lumbar intervertebral disc without myelopathy 08677082 M51.26 Lumbosacra l spondylosis without myelopathy 07113043 M47.817 Knee pain 80688284 M25.5 62 Muscle pain 10091091 M79 .18 [id number] Bridger Soriano MD PAIN OFFICE [address] [place] [address] 08/31/2021 14:13:59 09/02/2021 10:35:50 Knee pain 15985961 M25.562 Displaceme nt of lumbar intervertebral disc without myelopathy 78454614 M51.26 Lumbosacra l spondylosis without myelopathy 06391180 M47.817 Muscle pain 30388332 M79 .18 Anxiety 76254179 F41.9 [id number] Bridger Soriano MD PAIN OFFICE [address] [place] [address] 03/19/2023 10:58:59 03/19/2023 15:21:25 Lumbosacral spondylosis without myelopathy 33504466 M47.817 Displaceme nt of lumbar intervertebral disc without myelopathy 91533747 M51.26 Knee pain 89191321 M25.5 62 Muscle pain 59827097 M79 .18 [id number] Bridger Soriano MD PAIN OFFICE [address] [place] [address] 03/21/2023 13:01:27 03/21/2023 14:25:30 Displacement of lumbar intervertebral disc without myelopathy 14586858 M51.26 Lumbosacra l spondylosis without myelopathy 40797636 M47.817 Knee pain 11374593 M25.5 62 Muscle pain 70611755 M79 .18 Lumbar radiculopathy 128 788636 M54.16 [id number] Bridger Soriano MD PAIN OFFICE [address] [place] [address] 04/12/2023 13:30:59 04/12/2023 13:58:00 Knee pain 88935671 M25.562 Osteoarthr itis of knee 190350989 M17.11 [id number] Bridger Soriano MD PAIN OFFICE [address] [place] [address] 07/25/2023 13:26:45 07/25/2023 14:55:44 Osteoarthritis of knee 517269702 M17.11 [id number] Bridger Soriano MD PAIN OFFICE [address] [place] [address] 08/14/2023 11:28:40 08/14/2023 15:55:58 Displacement of lumbar intervertebral disc without myelopathy 26122863 M51.26 Lumbosacra l spondylosis without myelopathy 86114865 M47.817 Knee pain 08919744 M25.5 62 Muscle pain 78030398 M79 .18 Lumbar radiculopathy 128 977206 M54.16 [id number] Bridger Soriano MD PAIN OFFICE [address] [place] [address] 10/31/2023 13:33:33 10/31/2023 16:13:12 Knee pain 29914011 M25.562 Osteoarthr itis of knee 601022549 M17.12 [id number] Bridger Soriano MD PAIN OFFICE [address] [facility] [place] [address] 12/11/2023 13:07:11 12/11/2023 14:55:52 Lumbar radiculopathy 869779968 M54.16 Displaceme nt of lumbar intervertebral disc without myelopathy 88626876 M51.26 [id number] Bridger Soriano MD PAIN OFFICE [address] [place] [address] 12/27/2023 13:38:10 12/27/2023 17:06:15 Knee pain 25236542 M25.562 Osteoarthr itis of knee 531436627 M17.11 [id number] Bridger Soriano MD PAIN OFFICE [address] [place] [address] 04/01/2024 11:04:31 04/01/2024 16:59:44 Lumbar radiculopathy 444648108 M54.16 Displaceme nt of lumbar intervertebral disc without myelopathy 55304540 M51.26 Health Concerns Section Related Observation LastModified by Organization Detai ls LastModified Time None Recorded Concern Status LastModified by Organization Details LastModified Time None Recorded Advance Directives Directive None Recorded Payers Insurance Date Sequence Insurance Name Policy Number Policy Tatum Covered Member ID Tatum Member ID Guarantor Name 07/19/2024 1 [employer]: [employer] [id number] Belgica Barrios Baring [id number] Belgica Pierce 12/11/2023 1 [employer]ENN[employer]ER [address] Belg[address] Barrios Baring [id number] Belgica Baring Notes Date Note Type Note Provider Name and Address Organization Details Recorded Time 08/14/2023 text/html She is here for a lumbar epidural steroid injection under fluoroscopic guidance. Bridger Soriano MD [address] [facility] , [address], [place], [address], [place] [facility] 08/14/2023 16:05:20 10/31/2023 text/html She is here for a left genicular nerve block under fluoroscopic guidance Bridger Soriano MD [address] , [address], [place], [address], [place] [facility] 11/01/2023 10:27:51 12/11/2023 text/html She is here for a lumbar epidural steroid injection under fluoroscopic guidance. Bridger Soriano MD [address] [facility] , [address], [place], [address], [place] [facility] 12/11/2023 16:04:51 12/27/2023 text/html She is here for a right genicular nerve block under fluoroscopic guidance Bridger Soriano MD [address] , [address], [place], [address], [place] [facility] 12/28/2023 09:59:49 04/01/2024 text/html She is here for a lumbar epidural steroid injection under fluoroscopic guidance. Bridger Soriano MD [address] [facility] , [address], [place], [address], [place] [facility] 04/01/2024 17:08:43 OBGyn Episode No OBEpisode recorded.
--- OUTSIDE RECORDS SUMMARY | 2024-10-28 13:55 | XMS_ITS | Clinical Summary ---
Author Organization [facility] Address [address] [place] [address] Phone Care Team Providers Care Monitoring Specialist Name Role Phone Benji Salcedo MD Primary Care Provider [phone] Encounters Date Type Department Care Team Description 10/10/2024 1:33 PM EDT - 10/10/2024 11:59 PM EDT Hospital Encounter [facility] MRI [address] [place] [address] Right foot pain Discharge Disposition: [...] Signed Date: 10/10/2024 15:08 ET Workstation ID: [id number] Transcribed By: Self Edit Transcribed Date: 10/10/2024 [...] Signed Date: 10/10/2024 15:08 ET Workstation ID: [id number] Transcribed By: Self Edit Transcribed Date: 10/10/2024 14:58 ET Benji Salcedo MD IMG MRI PROCEDURES Final Resul t from Last 3 Months Insurance MEDICARE Care Teams Monitoring Specialist Relationship Specialty Start Date End Date Benji Salcedo MD PCP - General Internal Medicine 04/02/08
--- OUTSIDE RECORDS SUMMARY | 2024-10-28 13:55 | XMS_ITS | Clinical Summary ---
Author Organization [facility] Address [address] [place] [address] Care Team Providers Care Nut Feeder Name Role Phone Benji Salcedo MD Primary [...] age to complete this topic Care Teams Nut Feeder Relationship Specialty Start Date End Date Benji Salcedo MD PCP - General Internal Medicine 09/10/14
--- OUTSIDE RECORDS SUMMARY | 2024-10-28 13:55 | XMS_ITS | Encounter Summary ---
Author Organization [facility] Address [address] [place] [address] Phone Care Team Providers Care Automation Qa Tester Name Role Phone Benji Salcedo MD Primary Care Provider [phone] Encounter Details Date Type Department Care Team (Late st Contact Info) Description 07/13/2021 Telephone [facility] [address] [place] [address] Noy Tuttle Social History Tobacco [...] on filedocumented in this encounter Care Teams Automation Qa Tester Relationship Specialty Start Date End Date Benji Salcedo MD [address] [facility] [address] [place] [address] PCP - General 04/26/20 documented as of this encounter
[2024-10-28 14:03] LABS: MANUAL DIFF FLAG NO
[2024-10-28 14:09] LABS: Hematocrit 40.1 % (37.0-47.0); Hemoglobin 13.5 g/dl (12.0-16.0); Imm Gran Abs Auto 0.07 X10*3/uL (0.00-0.03); Imm Gran Pct Auto 0.6 % (0.0-0.4); Lymphocytes Absolute Auto 0.9 X10*3/uL (1.2-4.9); Mean Corpuscular HGB Conc 33.7 g/dl (31.0-35.0); Mean Corpuscular Hemoglobin 27.7 pg (27.0-33.0); Mean Corpuscular Volume 82.2 fL (80.0-98.0); NRBC Abs Auto 0.000 X10*3/uL (0.0-0.012); NRBC Pct Auto 0.0 /100WBC (0.0-0.2); Platelet Count 292 X10*3/uL (160-400); Red Blood Count 4.88 X10*6/uL (4.20-5.50); White Blood Count 11.7 X10*3/uL (4.8-10.8)
[2024-10-28 14:34] LABS: Troponin-I High Sensitivity 3.3 ng/L (<3.5-17.0)
[2024-10-28 14:39] VITALS: BP 97/53; PULSE 87; RESP 17; TEMP 36.9; O2SAT 97
--- NOTE | 2024-10-28 15:17 | PC.NURSE ---
PAtient presents to ED from home. PAtient has been feeling dizzy and shakey. PMH DM POC 125. Nauseous but no vomiting. Poor intake due to lack of appetite. Patient on steroids for right foot. Right foot red warm and edematous. Patient has been agitated at times about having to wait to see a doctor. Attempted to redirect with somewhat success, patient keeps threatening to leave AMA.
--- NOTE | 2024-10-28 15:43 | PC.NURSE ---
Daughter Sylvie called wanting an update, received permission from patient to speak with daughter. Daughter aware of plan
--- NOTE | 2024-10-28 15:59 | ED.GENADULT ---
HPI - General Adult General Chief complaint: Dizziness Stated complaint: SUDDEN DIZZINESS X30M PER EMS Time Seen by Provider: 10/28/24 15:34 Source: patient, RN notes reviewed and old records reviewed Mode of arrival: EMS Limitations: no limitations History of Present Illness ED Provider: Gabriella HPI narrative: 69-year-old female with past medical history significant for hyperuricemia, constipation, chronic kidney disease, hypertension, diabetes, chronic nephropathy, diabetes, obesity presents for evaluation of near-syncope. Patient reports feeling lightheaded and shaky upon standing. She reports that she felt like she was going to pass out She had a mild headache but denies any chest pain or shortness of breath. Patient reports right foot pain for the last 4 months and recently had an MRI which shows ?torn tendons and a bone bruise. ? She is due to see Podiatry this Sunday Denies any history of coronary artery disease Related Data Home Medications ?Medication ?Instructions ?Recorded ?Confirmed triamcinolone acetonide 0.1 % appl topical DAILY 03/16/20 06/17/24 topical cream [id number] 3.5 1 appl topical DAILY PRN 11/29/22 06/17/24 mg-10,000 unit-10 mg/gram top cream (Neosporin Plus Pain Relief) metoprolol tartrate 50 mg tablet 25 mg PO BID 02/12/24 06/17/24 semaglutide 0.25 mg or 0.5 mg (2 2 mg subcut QWEEK 10/22/24 mg/3 mL) subcutaneous pen injector (Ozempic) Previous Rx's ?Medication ?Instructions ?Recorded blood sugar diagnostic (OneTouch #200 ea 01/15/23 Verio test strips) blood-glucose meter (OneTouch #1 ea 01/15/23 Verio Flex Meter) lancets 33 gauge (OneTouch Delica #200 ea 01/15/23 Plus Lancet) blood-glucose sensor (FreeStyle #6 ea 06/13/23 Ladonna 3 Sensor device) amlodipine 10 mg tablet 10 mg PO DAILY #30 tabs 02/12/24 furosemide 20 mg tablet (Lasix) 20 mg PO DAILY Leg swelling #30 03/07/24 tabs ondansetron 4 mg disintegrating 4 mg PO Q8H PRN nausea and 05/24/24 tablet vomiting #10 tabs sennosides 8.6 mg-docusate sodium 2 tab-cap (2 x 8.6-50 mg) PO 06/17/24 50 mg tablet (Senna with Docusate BEDTIME 60 days #120 tabs Sodium) allopurinol 100 mg tablet 100 mg PO DAILY #90 tabs 09/02/24 Allergies Allergy/AdvReac Type Severity Reaction Status Date / Time Iodinated Contrast Media (IV Allergy Severe SEIZURE Verified 10/28/24 12:37 CONTRAST) vancomycin (VANCOMYCIN) Allergy Severe ITCHING, Verified 10/28/24 12:37 SOB doxycycline (DOXYCYCLINE) Allergy Intermediate DIFFICULTY Verified 10/28/24 12:37 SWALLOWING Penicillins (PENICILLINS) Allergy Intermediate RASH Verified 10/28/24 12:37 cephalexin (From KEFLEX) Allergy Unknown RASH Verified 10/28/24 12:37 Sulfa (Sulfonamide Allergy Unknown UNKNOWN Verified 10/28/24 12:37 Antibiotics) (SULFA (SULFONAMIDE ANTIBIOTICS)) Review of Systems Constitutional: Constitutional: Denies body ache(s), Denies chills, Denies fever(s) and Reports headache(s) Eyes: Eyes: Denies exophthalmos ENT: Denies vertigo, Reports dizziness, Denies dry mouth and Reports headache(s) Cardiovascular: Cardiovascular: Denies chest pain, Denies syncope, Reports lightheadedness and Denies dyspnea on exertion Respiratory: Respiratory: Denies cough and Denies dyspnea on exertion Gastrointestinal: Gastrointestinal: Denies abdominal pain Musculoskeletal: Musculoskeletal: Denies back pain Integumentary/Breasts: Skin/Breast: Denies rash Neurologic: Denies vertigo, Reports dizziness, Denies syncope and Reports headache(s) Psychiatric: Psychiatric: Denies anxiety [facility] Past Medical History Medical History (Updated 10/28/24 @ 17:20 by Monster Quiroz) GINA (obstructive sleep apnea) Gout On beta kamar at home Chronic headaches Splenic artery aneurysm Meningioma HTN (hypertension) Surgical History Hx laparoscopic cholecystectomy (~2013) History of hysterectomy History of History of colonoscopy (~08/2018) Family History Family History Father Family hx of colon cancer Mother Hx of breast cancer Paternal Grandmother Colon cancer Social History Social History Household Members: None Housing: House Alcohol intake: never Patient Tobacco Use Status: Never used Tobacco Smoked in Last 30 Days: No e-Cigarette/Vaping Use: Never Used Use of substances other than those prescribed or required for medical reasons: No Advance Directives: No Advance Directives Information Provided: Yes Do you have a plan to hurt others: No Plan service: No Cognitive needs: No Hearing needs: No Vision needs: No Physical Exam ED Vital Signs: Vital Signs - 24 hr 10/28/24 12:33 10/28/24 12:38 10/28/24 14:39 Temperature 97.4 F 97.4 F 98.4 F Pulse Rate 94 94 87 Respiratory Rate 16 16 17 Blood Pressure 139/69 139/69 97/53 L Pulse Oximetry 99 99 97 Oxygen Delivery Method Room Air Room Air Room Air BMI result Body Mass Index 28.7 Const General: healthy appearing, comfortable, no acute distress, alert and awake Nutritional Appearance: well nourished Orientation/consciousness: patient oriented x3 HENMT Head: Yes normocephalic and Yes atraumatic Eyes Eyelids: Yes eyelids normal Conjunctivae: conjunctivae normal Sclerae: sclerae normal Corneas: corneas normal Pupils: Equal, round and reactive pupils present EOM: EOMs intact bilaterally Neck Neck: Yes full ROM Resp Effort & Inspection: normal respiratory effort, able to speak in complete sentences and not labored Cardio Rate: regular rate Rhythm: regular rhythm GI Inspection: No distended Palpation (GI): Soft to palpation, not firm, nontender, no guarding and not rigid Skin General skin exam: no rashes or lesions noted and elasticity normal Neuro General: patient oriented x3 Cranial nerves: Yes CN's II-XII intact bilaterally, Yes Equal, round and reactive pupils present and Yes Bilaterally intact EOM present Cognition (Neuro): normal cognition Motor exam (neuro): 5/5 motor strength present throughout Coordination: [id number] test normal, [id number] test normal and Romberg test negative Extrem Other: Moving all extremities well without any obvious deformities Course Reevaluation(s) Reevaluation #1: The patient's CONRAD was treated with IV fluids, she reports feeling better she will be discharged to follow up with her outpatient providers Time: 17:19 Medications Administered Discontinued Medications Generic Name Dose Route Start Last Admin Trade Name Gil PRN Reason Stop Dose Admin Sodium Chloride 1,000 mls @ 999 mls/hr 10/28/24 15:45 10/28/24 15:48 Ns IV 10/28/24 16:45 999 mls/hr .Q1H1M ANA Administration Medical Decision Making Medical Decision Making [facility] Narrative: 69-year-old female with a past medical history as above presents for evaluation of what she describes as dizziness. However upon further history it sounds as if she is describing lightheadedness as she feels like she is going to pass out. She reports feeling better upon presentation to the emergency department. She reports that her symptoms started after she had an Ozempic injection this morning despite not eating or drinking for the last few days. Chest pain. Febrile, she has no infectious symptoms. She did have a low blood pressure at 97/53 which is likely due to decreased p.o. intake. She has a mild CONRAD on top of CKD her BUN is elevated to 37 with a creatinine of 1.2, her baseline appears to be around 33 and 1.1 respectively. The patient has a negative cerebellar exam, I doubt posterior CVA Differential Diagnosis Differential Diagnoses: The differential diagnosis associated with the presentation includes CONRAD Dehydration Orthostasis Posterior CVA less likely Admission/Observation Consideration of admission/observation: Escalation of care including admission/observation considered Lab Data [facility] Lab Attestation statement: I reviewed the patient's lab results. Mild leukocytosis infant anemia. Normal platelet count. No electrolyte abnormalities. Mild CONRAD on top of CKD as discussed 10/28/24 14:00 10/28/24 16:28 Labs: Lab Results 10/28/24 10/28/24 Range/Units 14:00 16:28 WBC 11.7 H (4.8-10.8) X10*3/uL RBC 4.88 (4.20-5.50) X10*6/uL Hgb 13.5 (12.0-16.0) g/dl Hct 40.1 (37.0-47.0) % MCV 82.2 (80.0-98.0) fL MCH 27.7 (27.0-33.0) pg MCHC 33.7 (31.0-35.0) g/dl RDW 14.1 (11.0-16.0) % Plt Count 292 D (160-400) X10*3/uL MPV 8.7 L (9.4-12.3) fL Immature Gran % (Auto) 0.6 H (0.0-0.4) % Neut % (Auto) 83.5 H (45-73) % Lymph % (Auto) 7.9 L (20-40) % Sac % (Auto) 7.5 (2-11) % Eos % (Auto) 0.2 (0-4) % Baso % (Auto) 0.3 (0-2) % Lymph # (Auto) 0.9 L (1.2-4.9) X10*3/uL Sac # (Auto) 0.9 (0.1-1.2) X10*3/uL Eos # (Auto) 0.0 (0.0-0.4) X10*3/uL Baso # (Auto) 0.0 (0.0-0.2) X10*3/uL Abs Immat Gran (auto) 0.07 H (0.00-0.03) X10*3/uL Absolute Neuts (auto) 9.7 H (2.0-8.3) x10*3/uL Absolute Nucleated RBC 0.000 (0.0-0.012) X10*3/uL Nucleated RBC % (auto) 0.0 (0.0-0.2) /100WBC Sodium 144 (135-145) mmol/L Potassium 4.3 (3.3-5.1) mmol/L Chloride 110 H (96-108) mmol/L Carbon Dioxide 22 (22-29) mmol/L Anion Gap 16 (12-20) BUN 37 H (9-16) mg/dL Creatinine 1.82 H (0.5-1.4) mg/dL Estim Creat Clear Calc 30.8 Estimated GFR 27 Random Glucose 132 H (60-115) mg/dL Calcium 9.8 (8.4-10.2) mg/dL Magnesium 2.1 (1.6-2.6) mg/dL Total Bilirubin 0.7 (0.0-1.0) mg/dL AST 20 (5-31) U/L ALT 15 (0-31) U/L Alkaline Phosphatase 80 (39-117) U/L Troponin I High Sens 3.3 (<3.5-17.0) ng/L Total Protein 6.2 L (6.5-8.0) g/dL Albumin 3.8 (3.5-5.0) g/dL Tests considered The following testing was considered but not selected: Consider CT scan of the brain but ultimately felt it was not indicate Discharge Plan Discharge Clinical Impression: CONRAD (acute kidney injury) Patient Disposition: Home, Self-Care Instructions: Dehydration (ED) Additional Instructions: Your workup in the ER showed that you were slightly dehydrated. Your kidney function was elevated above your baseline. This was treated with IV fluids. Your blood pressure improved. Follow up with your primary doctor, return for new or worsening symptom Prescriptions: No Action (DME) blood-glucose meter [OneTouch Verio Flex meter] [facility] See Rx Instructions .Route Qty: 1 0RF Rx Instructions: Use to test blood sugars twice per day (DME) OneTouch Verio test strips Strip See Rx Instructions .Route Qty: 200 1RF Rx Instructions: Use to test blood sugar twice per day (DME) lancets [OneTouch Delica Plus Lancet] 33 gauge misc See Rx Instructions .Route Qty: 200 1RF Rx Instructions: Use to test blood sugar twice per day (DME) FreeStyle Ladonna 3 Sensor Device See Rx Instructions .Route Qty: 6 1RF Rx Instructions: Use for continuous blood sugar monitoring triamcinolone acetonide 0.1 % cream topical DAILY metoprolol tartrate 50 mg tablet 25 mg PO BID ondansetron 4 mg tablet,disintegrating 4 mg PO Q8H PRN (Reason: nausea and vomiting) Qty: 10 0RF Neosporin Plus Pain Relief 3.5-10,000-10 mg-unit-mg/gram cream 1 appl topical DAILY PRN amlodipine 10 mg tablet 10 mg PO DAILY Qty: 30 3RF allopurinol 100 mg tablet 100 mg PO DAILY Qty: 90 3RF sennosides-docusate sodium [Senna with Docusate Sodium] 8.6-50 mg tablet 2 tab-cap PO BEDTIME 60 Days Qty: 120 2RF Rx Instructions: Please take every other day at bedtime Ozempic 0.25 mg or 0.5 mg (2 mg/3 mL) pen injector 2 mg subcut QWEEK furosemide [Lasix] 20 mg tablet 20 mg PO DAILY Qty: 30 6RF Print Language: Mauritanian
[2024-10-28 16:48] LABS: Alanine Aminotransferase 15 U/L (0-31); Albumin Level 3.8 g/dL (3.5-5.0); Alkaline Phosphatase 80 U/L (39-117); Anion Gap 16 (12-20); Aspartate Amino Transferase 20 U/L (5-31); Blood Urea Nitrogen 37 mg/dL (9-16); Calcium 9.8 mg/dL (8.4-10.2); Carbon Dioxide 22 mmol/L (22-29); Chloride 110 mmol/L (96-108); Creatinine Clr Calc Pharmacy 30.8; Estimated Glomerular Filt Rate 27; Magnesium 2.1 mg/dL (1.6-2.6); Potassium 4.3 mmol/L (3.3-5.1); Sodium 144 mmol/L (135-145); Total Protein 6.2 g/dL (6.5-8.0)
[2024-10-28 17:14] VITALS: BP 114/69; PULSE 78; RESP 16; TEMP 36.3; O2SAT 98
[2024-10-28 17:24] VITALS: BP 114/69; PULSE 78; RESP 16; TEMP 36.3; O2SAT 98
--- NOTE | 2024-10-28 17:53 | PC.NURSE ---
Tato Rn called daughter for ride home. Daughter ordered uber for patient. Patient sitting in wheelchair at front of ER awaiting medicinal plant picker
== END 2024-10-28 17:54 | disposition home or self-care (01) ==
PROVIDERS: Emergency Provider Emergency Medicine
DX: N17.9 Acute kidney failure, unspecified (principal); R42 Dizziness and giddiness; E11.22 Type 2 diabetes mellitus with diabetic chronic kidney disease; I12.9 Hypertensive chronic kidney disease with stage 1 through stage 4 chronic kidney disease, or unspecified chronic kidney disease; N18.9 Chronic kidney disease, unspecified; Z79.899 Other long term (current) drug therapy
CPT/HCPCS: 36415; 80053; 83735; 84484; 85025; 93005; 96360; 96361; 99284; 99285

== ENCOUNTER → 2024-10-28 14:11 | Outpatient (BNV) | payer BC, SELFPAY | PROVIDERS: Emergency Provider Emergency Medicine; Visit Provider Internal Medicine | DX: R94.31 Abnormal electrocardiogram [ECG] [EKG] (principal); R42 Dizziness and giddiness | CPT/HCPCS: 93010 ==

== ENCOUNTER 2024-10-30 13:14 | Outpatient (AMB) | payer BC, SELFPAY ==
--- NOTE | 2024-10-30 13:27 | MHC.OFFVIS ---
Vital Signs 10/30/24 13:35 Height 5 ft 4 in Weight 187 lb 6.287 oz BMI 32.2 BP 100/61 Blood Pressure Location Lt brachial Position Sitting Pulse 84 Intake Visit Reasons: FU of constipation Intake Note: [place] presents in the office as a follow up for constipation. CC: She states that she might be due for a colo - she is also having the constipation. She said that nothing has changed. BM is hard and then half way through it diarrhea. 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 Allergies Iodinated Contrast Media (IV CONTRAST) Allergy (Severe, Verified 10/28/24 12:37) SEIZURE vancomycin (VANCOMYCIN) Allergy (Severe, Verified 10/28/24 12:37) ITCHING, SOB doxycycline (DOXYCYCLINE) Allergy (Intermediate, Verified 10/28/24 12:37) DIFFICULTY SWALLOWING Penicillins (PENICILLINS) Allergy (Intermediate, Verified 10/28/24 12:37) RASH cephalexin (From KEFLEX) Allergy (Unknown, Verified 10/28/24 12:37) RASH Sulfa (Sulfonamide Antibiotics) (SULFA (SULFONAMIDE ANTIBIOTICS)) Allergy (Unknown, Verified 10/28/24 12:37) UNKNOWN Medication List - Last Reconciled 10/30/24 by Reny Munson MD allopurinol 100 mg PO DAILY amlodipine-olmesartan 10-20 mg 1 tab PO DAILY blood sugar diagnostic (Initiate Systemsuch Verio test strips) Use to test blood sugar twice per day blood-glucose meter (Initiate Systemsuch Verio Flex Meter) Use to test blood sugars twice per day blood-glucose sensor (FreeStyle Ladonna 3 Sensor device) Use for continuous blood sugar monitoring furosemide (Lasix) 20 mg PO DAILY lancets (LensVectorTouch Delica Plus Lancet) Use to test blood sugar twice per day metoprolol tartrate 25 mg PO BID xcwdrsph-rcrknctsa-heymuagpi 3.5-10,000-10 mg-unit-mg/gram (Neosporin Plus Pain Relief) 1 appl topical DAILY PRN ondansetron 4 mg PO Q8H PRN semaglutide (Ozempic) 2 mg subcut QWEEK sennosides-docusate sodium 8.6-50 mg (Senna with Docusate Sodium) 2 tab-caps (2 x 8.6-50 mg) PO BEDTIME 60 days triamcinolone acetonide 0.1% appl topical DAILY HPI HPI FU of constipation: Details: GI CLINIC VISIT FOR THIS 69-YEAR-OLD FEMALE FOR FOLLOW-UP OF A CHANGE IN BOWEL HABITS. Pt was last seen on 06/10/20 05/24/24 PT WAS SEEN AT [facility] [place]: Patient is a 68-year-old female with history of C. diff and E. coli infection in January of 2024, HTN, CKD 3, T2DM, splenic artery aneurism, gout presenting to the ED with complaint of diarrhea and abdominal pain for the past 2 weeks. On exam patient is awake, A+Ox3, VS WNL, afebrile, normal neurological exam without focal deficits, physical exam findings as above. Given reported symptoms and physical exam findings, initial differential includes but is not limited to E. coli, electrolyte abnormality, abscess, perforation, obstruction. Labs notable for no leukocytosis, no anemia, no significant electrolyte abnormalities, BUN at baseline. CT A/P no acute abnormalities of the abdomen/pelvis, mild stranding around bladder. My interpretation is in agreement with the radiologist's interpretation. Given that patient has been symptomatic for over 2 weeks, will treat with azithromycin, will also send prescription for zofran. UA notable for 1+ leukocytes, 6-10 WBCs with 3-5 epithelials, will wait for culture prior to treatment for UTI. Patient instructed to follow up with PCP. Ensure adequate fluid intake, specifically fluids with electrolytes. Return precautions discussed at bedside. CHRONIC ILLNESSES: Mixed hyperlipidemia, GINA - doesn't use CPAP, Benign Essential HTN, GERD Prediabetes, meningioma, headaches TODAY'S VISIT CC: She states that she might be due for a colo - she is also having the constipation. She said that nothing has changed. BM is hard and then half way through it diarrhea. Complains of constipation alternating with diarrhea. Notes abdominal cramps followed by hard stools followed by liquid stools. Has a BM every 2-3 days. Painful to have a BM, has a lot of gas. Wt loss of 10 lbs Family hx of colon cancer in and Dad Complains of right foot pain x 4 months due to torn tendons and has to use a cane. PAST VISIT: Patient cc: No BM x a week and when she have a BM is really painful with abdominal pain, some swallowing problems, tiredness, Had C Diff and E Coli in 01/2024 and was treated. Retreated for E Coli in May and retested for E Coli - negative Last episode of diarrhea was Jun 11 and no BM since. Also passing very little gas Taking Probiotics from [employer] which has been helping. Started taking Ozempic 2 years ago in November - had nausea and diarrhea when she started and symptoms have improved since PAST VISIT: At work at present and waiting to get the COVID vaccine. Started taking probiotics (Probitoics for colon health from [employer]) with improvement in diarrhea, abdominal pain and cramps. She has noted a ton of gas and stools appear to float on the toilet water. Admitted to the hospital with dehydration last February after her dog of splenic rupture. Appetite fluctuates and she lost a little bit of weight (weighs 230 lbs - decreased from 235 lbs a year ago) I have not eaten much so the diarrhea stopped. Drinking some fluids - had a few crackers and soda. Had some cranberry juice. Thinks she has an infection. Diarrhea started last Sunday and lasted till Sunday. Has not had a BM since then since she is eating very little. Had bouts of constipation 3 weeks ago Had a small BM when she was able to go. Did not take any laxatives. Noted some blood on wiping yesterday. Feels depressed since her dog last Sunday - had him since 04/2009. Got tested and was negative for COVID 19 infection (several people at work got infected) Rectal bleeding for the past 3 weeks which has stopped now. Saw Dr Fregoso yesterday for hemorrhoids Complains of intermittent periumblical abdominal cramps and had to moffett to the bathroom. Not related to diet. Avoids fatty food. Having 1-2 BMs a day (unchanged). Abdominal pain resolves after the BM. Denies diarrhea Stools are not hard and usually on the softer. Taking Miralax once a day and citrucil once a day. Denies change in diet or recent antibiotics. Gets a CT scan every yr for FU of a splenic aneurysm (has been stable) LABS IN [facility]: 11/29/18 Reviewed - AST 32, ALT 46 (improved from 38 & 51 in 01/01) IMAGING STUDIES: 09/12/[address] SCAN SHOWED: 1. No bowel obstruction, free intraperitoneal air or abscesses. This no appendicitis or diverticulitis. 2. No urinary calculus or obstructive uropathy. 3. There is bilateral renal cortical atrophy. The a small low attenuation bilateral renal probable cysts, too small to fully characterize with CT. These are of doubtful clinical significance. If clinically indicated (i.e. History of hematuria known malignancy), these can be more fully evaluated with ultrasound or MRI. 4. There is hepatic steatosis. 5. The gallbladder and uterus are surgically absent. 6. There are degenerative changes of the thoracolumbar spine, most pronounced at L2-L3. 12/02 Abd US showed: Liver of diffuse increased echogenicity. This is nonspecific, but consistent with diffuse fatty infiltration. Status post cholecystectomy. 6 mm echogenic focus within the interpole region likely corresponding to a nonobstructive calculus. ENDOSCOPIC STUDIES: Pt had a colonoscopy on 09/06/18: Four polyps removed Moderate diverticulosis seen in the left colon Large hemorrhoids on retroflexed exam - likely source of rectal bleeding. Plan: Await pathology results Patient has an appointment on 09/20/18 in the GI Clinic with Reny Munson M.D. Repeat Colonoscopy interval based on path results in 3-5 years if polyps are adenomatous and 5 years if polyps are hyperplastic (history of large hyperplastic polyps on previous colonoscopy). Above findings were reviewed with the patient and colon polyps, diverticulosis and hemorrhoids handouts were given in the discharge area. Patient was advised to continue with rectal cream and take citrucil daily instead of prn. A. Colon, ascending, polypectomy: Tubular adenoma; no high grade dysplasia or carcinoma seen. B. Colon, transverse, polypectomy: Hyperplastic mucosal polyp. C. Colon, sigmoid, polypectomy: Hyperplastic mucosal polyps [facility] Medical History GINA (obstructive sleep apnea) Gout On beta kamar at home Chronic headaches Splenic artery aneurysm Meningioma HTN (hypertension) Surgical History Hx laparoscopic cholecystectomy (~2013) History of hysterectomy History of History of colonoscopy (~08/2018) Family History Father Family hx of colon cancer Mother Hx of breast cancer Paternal Grandmother Colon cancer Social History Household Members: None Housing: House Alcohol intake: never Patient Tobacco Use Status: Never used Tobacco e-Cigarette/Vaping Use: Never Used service: No Cognitive needs: No Hearing needs: No Vision needs: No Review of Systems Const All systems reviewed & are unremarkable except as noted in HPI and below Physical Exam Vital Signs: Last Vital Signs Pulse 84 10/30/24 13:35 BP 100/61 10/30/24 13:35 BMI result Body Mass Index 32.2 Const General: no acute distress Nutritional Appearance: obese Orientation/consciousness: patient oriented x3 Limitations: ambulation with cane HEENT Head: Yes normal to inspection Ears: hearing grossly normal bilaterally Eyes Sclerae: sclerae normal Pupils: Equal, round and reactive pupils present Neck Neck: Yes normal visual inspection Chest Chest palpation & inspection: normal inspection of the chest Resp Effort & Inspection: normal respiratory effort Auscultation: clear to auscultation bilaterally Cardio Palpation: normal PMI Rate: regular rate Rhythm: regular rhythm Heart sounds: S1 normal heart sound present, S2 normal heart sound present and no murmurs GI Palpation (GI): Soft to palpation, nontender and No hepatosplenomegaly present Auscultation: normal bowel sounds Rectal Exam - Female: deferred Skin General skin exam: no rashes or lesions noted Neuro General: patient oriented x3, gait normal and moves all extremities Cranial nerves: Yes Equal, round and reactive pupils present Psych Appearance: grossly normal Mental Status: mental status grossly normal Assessment & Plan Assessment & Plan (1) Chronic diarrhea: Code(s): K52.9 - Noninfective gastroenteritis and colitis, unspecified Category: Medical (2) Lower abdominal pain: Code(s): R10.30 - Lower abdominal pain, unspecified Category: Medical (3) Rectal bleeding: Code(s): K62.5 - Hemorrhage of anus and rectum Category: Medical (4) NAFL (nonalcoholic fatty liver): Code(s): K76.0 - Fatty (change of) liver, not elsewhere classified Category: Medical (5) History of colon polyps: Comment: 08/2018 Patient has adenomatous and large hyperplastic colon polyps (can be pre-malignant) removed during and was advised to schedule a FU colonoscopy in 3 yrs - due in 09/04. 09/2021 COLONOSCOPY SHOWED: Colonoscopy Findings: Three polyps removed, a fourth hyperplastic appearing polyp was biopsied. Random biopsies were obtained from the right colon to check for microscopic colitis Moderate diverticulosis seen in the left colon Moderate hemorrhoids on retroflexed exam. Plan: Repeat colonoscopy in 5 years. Code(s): Z86.010 - Personal history of colon polyps Category: Medical (6) Constipation: Code(s): K59.00 - Constipation, unspecified Category: Medical Plan 69 YF with Mixed hyperlipidemia, GINA - doesn't use CPAP, Benign Essential HTN, GERD, Prediabetes, meningioma, headaches here for evaluation of a change in bowel habits for the past 11-12 months. Symptoms started after a possible episode of food poisoning lasting a few weeks after she ate at [email or web address]. Per patient stool tests performed by her PCP were negative for bacteria, parasites and C Diff. She complains of intermittent lower abd pain associated with an urge to have a BM followed by resolution of abdominal pain. She also has intermittent constipation. 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 Symptoms have improved with probiotics. Patient had persistant rectal bleeding from hemorrhoids x 3 weeks and bleeding has now resolved. 08/[address] scan showed bilateral renal cortical atrophy. The a small low attenuation bilateral renal probable cysts - pt is followed by Nephrology (Dr Ocasio ) Elevated LFTs are likely due to fatty liver associated with morbid obesity. LFTS have improved. Abdominal ultrasound confirmed presence of fatty liver - patient is advised to work on weight reduction. 06/17/24 Had C Diff and E Coli in 01/2024 and was treated. Retreated for E Coli in May and retested for E Coli - negative Last episode of diarrhea was Jun 11 and no BM since. Also passing very little gas Taking Probiotics from [employer] which has been helping. Pt advised to take Senna+ colace - 2 tab/cap at bedtime Advised to call if her symptoms persist 10/30/24 Complains of constipation alternating with diarrhea. Notes abdominal cramps followed by hard stools followed by liquid stools. Has a BM every 2-3 days. Above symptoms are likely related to Semaglutide Pt advised to take Senna 2 tab at bedtime if no BM for 1-2 days Pt informed that her next colonoscopy is due in 2026. Follow-up in GI in 4 months Coding Level of Care Code Est Pt Level 4 (32490) Diagnoses Chronic diarrhea K52.9 Lower abdominal pain R10.30 Rectal bleeding K62.5 NAFL (nonalcoholic fatty liver) K76.0 History of colon polyps Z86.010 Constipation K59.00 Time Spent (min) 20
[2024-10-30 13:35] VITALS: BP 100/61; PULSE 84; BMI 32.2
--- OUTSIDE RECORDS SUMMARY | 2024-10-30 13:42 | XMS_ITS | Data Portability ---
Author Organization [facility] Address [address] [facility] [address] [place] [address] Care Team Providers Care Machine Pack Assembler Name Role Phone HELENE QUEZADA Primary Care [...] By Organization Details Last Modified Time 10/31/2023 07114 She was advised against bed rest lasting longer than four days and to continue activities as tolerated. [email or web address] Not available 10/31/2023 14:07:55 12/11/2023 90694 She is a diabetic . Blood sugar levels may temporarily increase after steroid injections. She was advised to check blood glucose levels three times a day post procedure. If levels are above 250, she was advised to contact the PCP. [email or web address] Not available 12/11/2023 13:32:29 12/27/2023 38049 She was advised against bed rest lasting longer than four days and to continue activities as tolerated. [email or web address] Not available 12/27/2023 16:33:20 04/01/2024 17354 She is a diabetic . Blood sugar [...] Knee pain Active Bridger dan MD [address] , [address], [place], [address], [place] [facility] 6 14:37:23 Displacement of lumbar intervertebral disc without myelopathy 17040861 Active Bridger dan MD [address] , [address], [place], [address], [place] [facility] 6 14:37:23 Lumbosacral spondylosis without myelopathy 76612383 Active Bridger dan MD [address] , [address], [place], [address], [place] [facility] 6 14:37:23 Muscle pain 64811678 Active Bridger dan MD [address] , [address], [place], [address], [place] [facility] 6 14:37:23 Problem Notes None recorded. Procedures Surgical History Date Name Laterality Status Provider Name and Address Organization Details Recorded Time 04/01/20 24 Lumbar Epidural steroid injection under fluoroscopic guidance completed Bridger Soriano MD [address] , [address], [place], [address], [place] [facility] 04/01/2024 16:41:47 12/27/19 24 Genicular Nerve block completed Bridger Soriano MD [address] , [address], [place], [address], [place] [facility] 12/27/2023 16:34:14 12/11/19 24 Lumbar Epidural steroid injection under fluoroscopic guidance completed Bridger Soriano MD [address] , [address], [place], [address], [place] [facility] 12/11/2023 13:31:06 10/31/19 24 Genicular Nerve block completed Bridger Soriano MD [address] , [address], [place], [address], [place] [facility] 10/31/2023 14:08:55 08/14/19 24 Lumbar Epidural steroid injection under fluoroscopic guidance completed Bridger Soriano MD [address] , [address], [place], [address], [place] [facility] 08/14/2023 13:19:15 07/25/19 24 Genicular Nerve block completed Bridger Soriano MD [address] , [address], [place], [address], [place] [facility] 07/25/2023 14:26:15 04/12/20 23 Intra-articular Knee Steroid Injection completed Bridger Soriano MD [address] , [address], [place], [address], [place] [facility] 04/12/2023 13:55:40 03/21/20 23 Lumbar Epidural steroid injection under fluoroscopic guidance completed Bridger Soriano MD [address] , [address], [place], [address], [place] [facility] 03/21/2023 13:28:50 09/01/19 22 Intra-articular Knee Steroid Injection completed Bridger Soriano MD [address] , [address], [place], [address], [place] [facility] 09/02/2021 10:34:04 06/07/19 22 Lumbar Epidural steroid injection under fluoroscopic guidance completed Bridger Soriano MD [address] , [address], [place], [address], [place] [facility] 06/08/2021 08:41:03 03/24/20 21 Intra-articular Knee Steroid Injection completed Bridger Soriano MD [address] , [address], [place], [address], [place] [facility] 03/24/2021 15:38:55 02/08/20 21 Intra-articular Knee Steroid Injection completed Bridger Soriano MD [address] [facility] , [address], [place], [address], [place] [facility] 02/08/2021 08:53:02 04/12/20 20 Intra-articular Knee Steroid Injection completed Bridger Soriano MD [address] [facility] , [address], [place], [address], [place] [facility] 04/12/2020 15:35:24 01/20/20 20 Intra-articular Knee Steroid Injection completed Bridger Soriano MD [address] [facility] , [address], [place], [address], [place] [facility] 01/20/2020 15:28:58 11/11/19 16 Intra-articular Knee Steroid Injection completed Bridger Soriano MD [address] [facility] , [address], [place], [address], [place] [facility] 11/11/2015 14:57:23 [...] Name and Address Organization Details Recorded Time 93920 Product containin g penicilli n (product) medicatio n rash Not available Not available 10/28/2015 76432 8001 SNOMED Elena hutchison [place] [facility] 6 15:23:45 66514 Keflex medicatio n Not available Not available Not available 10/28/201555930 7 RxNorm Facia l SweLL LEOBARDO hutchison, [place] [facility] 2 14:17:48 11985 vancomyci n medicatio n Not available Not available Not available 10/28/201517039 RxNorm Elena hutchison [facility] 6 15:23:45 17609 Iodinated contrast media (substanc e) medicatio n other Not available Not available 10/28/2015 71761 2003 SNOMED Right arm tremo rs Elena [...] mcg/0.5 mL intramuscul ar suspension, kit [facility] 04/12 completed Not Available Not Available Not Available FreeStyle Ladonna 14 Day Sensor kit CHANGE EVERY 14 DAYS DIRECTED active Not Available Not Available No t Available Flucelvax Quad (PF) 60 mcg (15 mcg x 4)/0.5 mL IM syringe 12/17 completed Not Available Not Available Not Available Flucelvax Quad (PF) 60 mcg (15 mcg x 4)/0.5 mL IM syringe [facility] 04/12 completed Not Available Not [...] Tobacco Smoking Status Never Smoker Not [facility] 01/30/2020 03:16:10 Which Illicit Or Recreational Drugs Have You Used? No [id number] Information not available 01/30/2020 Education [employer] Information not available 10/28/2015 Live Alone Or With Others? Alone Information not available 10/28/2015 Marital Status Informatio n not available 10/28/2015 Sex: Unknown Functional Status Question Answer Note LastModified by Organizat ion Details LastModified Time What is your level of alcohol consumption? None [id number] Information not available 01/30/2020 Are you currently employed? 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 [id number] Information not available 01/30/2020 Mental Status None [...] and Address Organization Details Recorded Time Novel [id number], all formulations 3 completed Sunni hutchison [place] [facility] 03/19/2023 11:10:15 Past Encounters Encounter ID Performer Location Encounter Start Date Encounter Closed Date Diagnosis/Indication Diagnosis SNOMED-CT Code Diagnosis ICD10 Code Diagnosis Note [id number] Bridger Soriano MD [facility] [address] [facility] [address] [facility] [place] [place] [address] 10/28/2015 14:37:49 11/07/2015 19:52:53 Displacement of lumbar intervertebral disc without myelopathy 30892906 M51.26 Knee pain 75365168 M25.5 62 Lumbosacra l spondylosis without myelopathy 21864124 M47.817 Muscle pain 30843468 M79 .1 [id number] Bridger Soriano MD PAIN OFFICE [address] [facility] [place] [address] 11/11/2015 13:35:56 11/11/2015 15:14:43 Knee pain 39825436 M25.562 Displaceme nt of lumbar intervertebral disc without myelopathy 75592590 M51.26 Lumbosacra l spondylosis without myelopathy 69373047 M47.817 Muscle pain 06591314 M79 .1 [id number] Bridger Soriano MD PAIN OFFICE [address] [facility] [place] [place] [address] 12/18/2019 13:39:18 12/18/2019 16:05:51 Displacement of lumbar intervertebral disc without myelopathy 83350536 M51.26 Lumbosacra l spondylosis without myelopathy 92296560 M47.817 Knee pain 44429266 M25.5 62 Muscle pain 43506256 M79 .18 [id number] Bridger Soriano MD PAIN OFFICE [address] [place] [address] 01/20/2020 14:58:58 01/20/2020 16:09:34 Knee pain 26870961 M25.562 Displaceme nt of lumbar intervertebral disc without myelopathy 20020120 M51.26 Lumbosacra l spondylosis without myelopathy 57377760 M47.817 Muscle pain 64692325 M79 .18 Anxiety 14198410 F41.9 [id number] Bridger Soriano MD PAIN OFFICE [address] [facility] [place] [place] [address] 04/12/2020 15:05:36 04/12/2020 15:47:49 Knee pain 17406484 M25.562 Displaceme nt of lumbar intervertebral disc without myelopathy 70047043 M51.26 Lumbosacra l spondylosis without myelopathy 16643569 M47.817 Muscle pain 56614298 M79 .18 Anxiety 75580211 F41.9 [id number] Bridger Soriano MD PAIN OFFICE [address] [address] 04/26/2020 15:03:26 04/27/2020 11:19:16 Knee pain 03752273 M25.562 Displaceme nt of lumbar intervertebral disc without myelopathy 79651562 M51. Lumbosacra l spondylosis without myelopathy 14698997 M47.817 Muscle pain 25923059 M79 .18 Anxiety 31276866 F41.9 [id number] Bridger Soriano MD PAIN OFFICE [address] [place] [address] 02/07/2021 15:07:39 02/08/2021 08:55:18 Knee pain 15604730 M25.562 Displaceme nt of lumbar intervertebral disc without myelopathy 73661736 M51. Lumbosacra l spondylosis without myelopathy 03243099 M47.817 Muscle pain 76048264 M79 .18 Anxiety 65830566 F41.9 [id number] Bridger Soriano MD PAIN OFFICE [address] [place] [address] 03/24/2021 15:06:19 03/24/2021 15:42:22 Knee pain 57480804 M25.562 Displaceme nt of lumbar intervertebral disc without myelopathy 20020120 M51. Lumbosacra l spondylosis without myelopathy 83393380 M47.817 Muscle pain 00607310 M79 .18 Anxiety 00427721 F41.9 [id number] Bridger Soriano MD PAIN OFFICE [address] [place] [address] 06/07/2021 13:30:02 06/08/2021 08:44:36 Displacement of lumbar intervertebral disc without myelopathy 59404335 M51.26 Lumbosacra l spondylosis without myelopathy 36157539 M47.817 Knee pain 59751288 M25.5 62 Muscle pain 24169879 M79 .18 [id number] Bridger Soriano MD PAIN OFFICE [address] [place] [address] 08/31/2021 14:13:59 09/02/2021 10:35:50 Knee pain 87981432 M25.562 Displaceme nt of lumbar intervertebral disc without myelopathy 94284716 M51.26 Lumbosacra l spondylosis without myelopathy 55967668 M47.817 Muscle pain 82478143 M79 .18 Anxiety 68287757 F41.9 [id number] Bridger Soriano MD PAIN OFFICE [address] [place] [address] 03/19/2023 10:58:59 03/19/2023 15:21:25 Lumbosacral spondylosis without myelopathy 15555036 M47.817 Displaceme nt of lumbar intervertebral disc without myelopathy 07269548 M51.26 Knee pain 91482847 M25.5 62 Muscle pain 43406674 M79 .18 [id number] Bridger Soriano MD PAIN OFFICE [address] [place] [address] 03/21/2023 13:01:27 03/21/2023 14:25:30 Displacement of lumbar intervertebral disc without myelopathy 07290875 M51.26 Lumbosacra l spondylosis without myelopathy 08663401 M47.817 Knee pain 98074725 M25.5 62 Muscle pain 65199003 M79 .18 Lumbar radiculopathy 128 045899 M54.16 [id number] Bridger Soriano MD PAIN OFFICE [address] [place] [address] 04/12/2023 13:30:59 04/12/2023 13:58:00 Knee pain 62972537 M25.562 Osteoarthr itis of knee 715562664 M17.11 [id number] Bridger Soriano MD PAIN OFFICE [address] [place] [address] 07/25/2023 13:26:45 07/25/2023 14:55:44 Osteoarthritis of knee 692202310 M17.11 [id number] Bridger Soriano MD PAIN OFFICE [address] [place] [address] 08/14/2023 11:28:40 08/14/2023 15:55:58 Displacement of lumbar intervertebral disc without myelopathy 87157681 M51.26 Lumbosacra l spondylosis without myelopathy 52541867 M47.817 Knee pain 61022540 M25.5 62 Muscle pain 50954405 M79 .18 Lumbar radiculopathy 128 886840 M54.16 [id number] Bridger Soriano MD PAIN OFFICE [address] [place] [address] 10/31/2023 13:33:33 10/31/2023 16:13:12 Knee pain 39190249 M25.562 Osteoarthr itis of knee 330798859 M17.12 [id number] Bridger Soriano MD PAIN OFFICE [address] [facility] [place] [place] [address] 12/11/2023 13:07:11 12/11/2023 14:55:52 Lumbar radiculopathy 408480916 M54.16 Displaceme nt of lumbar intervertebral disc without myelopathy 18967742 M51.26 [id number] Bridger Soriano MD PAIN OFFICE [address] [place] [address] 12/27/2023 13:38:10 12/27/2023 17:06:15 Knee pain 22720479 M25.562 Osteoarthr itis of knee 971310875 M17.11 [id number] Birdger Soriano MD PAIN OFFICE [address] [place] [address] 04/01/2024 11:04:31 04/01/2024 16:59:44 Lumbar radiculopathy 321482601 M54.16 Displaceme nt of lumbar intervertebral disc without myelopathy 89156089 M51.26 Health Concerns Section Related Observation LastModified by Organization Detai ls LastModified Time None Recorded Concern Status LastModified by Organization Details LastModified Time None Recorded Advance Directives Directive None Recorded Payers Insurance Date Sequence Insurance Name Policy Number Policy Tatum Covered Member ID Tatum Member ID Guarantor Name 07/19/2024 1 [facility]: [employer] [id number] Belgica Barrios [place] [id number] Belgica Pierce 12/11/2023 1 [facility] [address] [place] [id number] Belgica Terra Bella Notes Date Note Type Note Provider Name and Address Organization Details Recorded Time 08/14/2023 text/html She is here for a lumbar epidural steroid injection under fluoroscopic guidance. Bridger Soriano MD [address] [facility] , [address], [place], [address], [place] [facility] 08/14/2023 16:05:20 10/31/2023 text/html She is here for a left genicular nerve block under fluoroscopic guidance Bridger Soriano MD [address] , [address], [place], [address], [place] [facility] 11/01/2023 10:27:51 12/11/2023 text/html She is here for a lumbar epidural steroid injection under fluoroscopic guidance. Bridger Soriano MD [address] [facility] , [address], [place], [address], [place] [facility] 12/11/2023 16:04:51 12/27/2023 text/html She is here for a right genicular nerve block under fluoroscopic guidance Bridger Soriano MD [address] , [address], [place], [address], [place] [facility] 12/28/2023 09:59:49 04/01/2024 text/html She is here for a lumbar epidural steroid injection under fluoroscopic guidance. Bridger Soriano MD [address] [facility] , [address], [place], [address], [place] [facility] 04/01/2024 17:08:43 OBGyn Episode No OBEpisode recorded.
--- OUTSIDE RECORDS SUMMARY | 2024-10-30 13:42 | XMS_ITS | Clinical Summary ---
Author Organization [facility] Address [address] [place] [address] Phone Care Team Providers Care Extraction Machine Operator Name Role Phone Benji Salcedo MD Primary Care Provider [phone] Encounters Date Type Department Care Team Description 10/10/2024 1:33 PM EDT - 10/10/2024 11:59 PM EDT Hospital Encounter [facility] MRI [address] [place] [address] Right foot pain Discharge Disposition: [...] Signed Date: 10/10/2024 15:08 ET Workstation ID: [id number] Transcribed By: Self Edit Transcribed Date: 10/10/2024 [...] Signed Date: 10/10/2024 15:08 ET Workstation ID: [id number] Transcribed By: Self Edit Transcribed Date: 10/10/2024 14:58 ET Benji Salcedo MD IMG MRI PROCEDURES Final Resul t from Last 3 Months Insurance MEDICARE Care Teams Extraction Machine Operator Relationship Specialty Start Date End Date Benji Salcedo MD PCP - General Internal Medicine 04/02/08
--- OUTSIDE RECORDS SUMMARY | 2024-10-30 13:42 | XMS_ITS | Encounter Summary ---
Author Organization [facility] Address [address] [place] [address] Phone Care Team Providers Care Propellant Charge Loader Name Role Phone Benji Salcedo MD Primary Care Provider [phone] Encounter Details Date Type Department Care Team (Late st Contact Info) Description 07/13/2021 Telephone [facility] [address] [place] [address] Noy Tuttle Social History Tobacco [...] on filedocumented in this encounter Care Teams Propellant Charge Loader Relationship Specialty Start Date End Date Benji Salcedo MD [address] [facility] [address] [place] [address] PCP - General 04/26/20 documented as of this encounter
--- OUTSIDE RECORDS SUMMARY | 2024-10-30 13:42 | XMS_ITS | Clinical Summary ---
Author Organization [facility] Address [address] [place] [address] Care Team Providers Care Board Saw Runner Name Role Phone Benji Salcedo MD Primary [...] age to complete this topic Care Teams Board Saw Runner Relationship Specialty Start Date End Date Benji Salcedo MD PCP - General Internal Medicine 09/10/14
== END 2024-10-30 15:16 | disposition home or self-care (01) ==
LOC: HO.HGI 13:15
PROVIDERS: PCP Internal Medicine; Visit Provider Internal Medicine Gastroenterology
DX: K52.9 Noninfective gastroenteritis and colitis, unspecified (principal); R10.30 Lower abdominal pain, unspecified; K62.5 Hemorrhage of anus and rectum; K76.0 Fatty (change of) liver, not elsewhere classified; Z86.0100 Personal history of colon polyps, unspecified; K59.00 Constipation, unspecified
CPT/HCPCS: 99214

== ENCOUNTER 2025-01-12 15:01 | Outpatient (REF) | payer BC, SELFPAY ==
--- OUTSIDE RECORDS SUMMARY | 2024-11-18 09:15 | XMS_ITS ---
Author Organization [facility] Address [address] [place], [place] [id number] Care Team Providers Care Technologist Infectious Disease Name Role Phone HELENE QUEZADA Primary Care Provider [phone] ALLERGIES Allergen (clinical drug ingredient) Drug/Non Drug Allergy documented on EMR Reaction Allergy Type Onset Date Status KEFLEX (uncoded) Unknown Allergy Act maddy tramadol traMADol HCl nightmares Drug Allergy Act maddy doxycycline Doxycycline oral rash Drug Allergy Act maddy Iodinated contrast media (substance) Iodinated Diagnostic Agents Unknown Drug Allergy Active Penicillin Unknown Drug Allergy Active vancomycin Vancomycin Unknown Drug Allergy Activ e REASON FOR VISIT 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 follow up MEDICATIONS Medication SIG (Take, Route, Frequency, Duration) Notes Start Date End Date Status traMADol HCl 50 MG TAKE 1 TO 2 TABLETS BY MOUTH EVERY 8 HOURS NEEDED FOR PAIN for 7 10/15/2024 Active Ozempic (2 MG/DOSE) 8 MG/3ML as directed Subcutaneous every 7 days for 28 days 10/01/2024 Active Allopurinol 100 MG 1 tablet Orally Once a day Active Furosemide 20 MG 1 tablet Orally Once a day prn for 30 days Active Acetaminophen-Codeine 300-30 MG 1 tablet as needed Orally 3 times daily for 7 days 11/18/2024 Active busPIRone HCl 10 MG 1 tablet Orally Twic e a day for 30 days Active Nystatin 885677 UNIT/GM 1 application Ex ternally Twice a day for 30 day(s) 06/13/2023 Active FreeStyle Ladonna 3 Sensor - as directed a pplied to skin as directed for 90 days Active amLODIPine-Olmesartan 10-20 MG 1 tablet Orally Once a day A ctive Metoprolol Tartrate 50 MG 1/2 tablet wit h food Orally Twice a day Active SOCIAL HISTORY Tobacco Use: Social History Observation Description Date Details (start date - stop date) Never Smoker NA - NA Sex Assigned At : Social History Observation Description Sex Assigned At Unknown Smoking Question Answer Notes Are you a: never smoker Section Notes: pt never smoke VITAL SIGNS Height 62.5 in 11/18/2024 Weight 194 lbs 11/18/2024 Blood pressure systolic 134 mm Hg 11/19/19 25 Blood pressure diastolic 81 mm Hg 025 BMI 34.91 kg/m2 11/18/2024 Encounters Encounter Location Date Provider Diagnosis [facility] [address] [place] [address] 11/18/2024 HELENE KILMARNOCK Right foot pain M79.671 ; Essential (primary) hypertension I10 and Type 2 diabetes mellitus without complication, without long-term current use of insulin E11.9 ASSESSMENTS Encounter Date Diagnosis Assessment Notes Treatment Notes Treatment Clinical Notes Section Notes 11/18/2024 Right foot pain (ICD-10 - M79.671) 1. Right foot pain: Explained she needs to pick a track and follow through with 1 of these providers recommendations . We decided to follow through with the injection on the . If there are small number of Tylenol with codeine for severe pain in the interim. We will follow-up after the injection to reassess 2. Hypertension: Mildly elevated today. Generally better. Will recheck at her follow-up next month 3. Type 2 diabetes mellitus: A1c was stable at 5.8. Follow on current regimen of nutritional control 11/18/2024 Essential (primary) hypertension (ICD-10 - I10) 1. Right foot pain: Explained she needs to pick a track and follow through with 1 of these providers recommendations . We decided to follow through with the injection on the . If there are small number of Tylenol with codeine for severe pain in the interim. We will follow-up after the injection to reassess 2. Hypertension: Mildly elevated today. Generally better. Will recheck at her follow-up next month 3. Type 2 diabetes mellitus: A1c was stable at 5.8. Follow on current regimen of nutritional control 11/18/2024 Type 2 diabetes mellitus without complication, without long-term current use of insulin (ICD-10 - E11.9) 1. Right foot pain: Explained she needs to pick a track and follow through with 1 of these providers recommendations . We decided to follow through with the injection on the . If there are small number of Tylenol with codeine for severe pain in the interim. We will follow-up after the injection to reassess 2. Hypertension: Mildly elevated today. Generally better. Will recheck at her follow-up next month 3. Type 2 diabetes mellitus: A1c was stable at 5.8. Follow on current regimen of nutritional control PLAN OF TREATMENT Medication Medication Name Sig Start Date Stop Date Notes Acetaminophen-Codeine 300-30 MG 1 tablet as needed Orally 3 times daily for 7 days 11/18/2024 amLODIPine-Olmesartan 10-20 MG 1 tablet Orally Once a day Metoprolol Tartrate 50 MG 1/2 tablet wit h food Orally Twice a day Progress Notes * Examination Category Sub-Category Detail Notes Category Not es General Examination Heart: RSR, normal S1S2 Lungs: clear to auscultatio n Extremities: Patient saw Dr Jordyn kwok at [facility] - orthopedist. He recommended injection in foot - set up for Dec 08. MRI did not show clear stress fracture. General Appearance no apparent distress , pleasant Psych: alert, oriented X 3 Other normal affect History and Physical Notes * HPI (History of Present Illness) Category Sub-Category Detail Notes Category Not es General Patint still wi th pain in right foot - saw 3 specialists - Dr Russell in [place] recommended Boot - she is not wearing. She saw Dre in [facility] - wants to do injection Dec 08 - Dr Conteh recommended PT
--- OUTSIDE RECORDS SUMMARY | 2024-11-18 11:55 | XMS_ITS ---
Author Organization [facility] Address [address] [place], [place] [phone] Care Team Providers Care Morale Officer Name Role Phone HELENE QUEZADA Primary Care Provider REASON FOR VISIT Acetaminophen-Codeine 300-30 MG Tablet MEDICATIONS Medication SIG (Take, Route, Frequency, Duration) Notes Start Date End Date Status Acetaminophen-Codeine 300-30 MG 1 tablet as needed Orally 3 times daily for 7 days 11/18/2024 Active Encounters Encounter Location Date Provider Diagnosis [facility] [address] [place] [address] 11/18/2024 HELENE QUEZADA Right foot pain M79.671 ASSESSMENTS Encounter Date Diagnosis Assessment Notes Treatment Notes Treatment Clinical Notes Section Notes 11/18/2024 Right foot pain (ICD-10 - M79.671) PLAN OF TREATMENT Medication Medication Name Sig Start Date Stop Date Notes Acetaminophen-Codeine 300-30 MG 1 tablet as needed Orally 3 times daily for 7 days 11/18/2024
--- OUTSIDE RECORDS SUMMARY | 2024-11-19 10:24 | XMS_ITS ---
Author Organization [facility] [place] Address [address] [place] [phone] Care Team Providers Care Restaurant Kitchen And Service Manager Name Role Phone HELENE QUEZADA Primary Care Provider REASON FOR VISIT (FYI) Medication Request Encounters Encounter Location Date Provider Diagnosis [facility] [address] [place] [address] 11/19/2024 HELENE QUEZADA PLAN OF TREATMENT No Information
--- OUTSIDE RECORDS SUMMARY | 2024-12-16 10:56 | XMS_ITS ---
Author Organization [facility] Address [address] [place] [phone] Care Team Providers Care Plaster Tender Name Role Phone HELENE QUEZADA Primary Care Provider REASON FOR VISIT Update for MD Encounters Encounter Location Date Provider Diagnosis [facility] [address] [place] [address] 12/16/2024 HELENE QUEZADA PLAN OF TREATMENT No Information
--- OUTSIDE RECORDS SUMMARY | 2024-12-22 10:45 | XMS_ITS ---
Author Organization [facility] Address [address] [place] [phone] Care Team Providers Care Acquisition Lead Name Role Phone HELENE QUEZADA Primary Care Provider REASON FOR VISIT 41/ 1mo Encounters Encounter Location Date Provider Diagnosis [facility] [address] [place] [address] 12/22/2024 HELENE QUEZADA PLAN OF TREATMENT No Information
[2025-01-12 16:33] LABS: Anion Gap 11 (12-20); Blood Urea Nitrogen 29 mg/dL (9-16); Carbon Dioxide 24 mmol/L (22-29); Chloride 113 mmol/L (96-108); Estimated Glomerular Filt Rate 38; Potassium 4.1 mmol/L (3.3-5.1); Sodium 144 mmol/L (135-145); Uric Acid 8.5 mg/dL (2.4-5.7)
--- OUTSIDE RECORDS SUMMARY | 2025-01-12 17:05 | XMS_ITS | Encounter Summary ---
Author Organization [facility] Address [address] [place] [address] Phone Care Team Providers Care Loss Control Manager Name Role Phone Benji Salcedo MD Primary Care Provider [phone] Encounter Details Date Type Department Care Team (Late st Contact Info) Description 07/13/2021 Telephone [facility] [address] [place] [address] Noy Tuttle Social History Tobacco [...] on filedocumented in this encounter Care Teams Loss Control Manager Relationship Specialty Start Date End Date Benji Salcedo MD [address] [facility] [address] [place] [address] PCP - General 04/26/20 documented as of this encounter
--- OUTSIDE RECORDS SUMMARY | 2025-01-12 17:05 | XMS_ITS | Encounter Summary ---
Author Organization [facility] Address [address] [facility] [address] [place] [address] Phone Care Team Providers Care Fabric And Textile Factory Worker Name Role Phone Benji Salcedo MD Primary Care Provider [phone] Benji Salcedo MD Primary Care Provider [phone] Encounter Details Date Type Department Care Team (Late st Contact Info) Description 04/28/2024 Ancillary Orders [facility] Orthopedics at [place] [address] [facility] [address] [place] [address] Lam Grimes MD [address] [place] [address], [address] [place] [address] [email or web address] Pain (Primary Dx) Social History Tobacco Use Types Packs/Day Years Used Date Smoking Tobacco: Never Assessed Education Answer Date Recorded Are you interested in more education? Not on florencio e 08/11/2022 Are you concerned about learning? Not on file 08/11/2022 No 08/11/2022 No 08/11/2022 Digital Access Answer Date Recorded No 09/11/2022 No 09/11/2022 Reliable internet access at home? Not on file 09/11/2022 Device with a working camera? Not on file Comments Unknown Sex and Gender Information Value Date Recorded Sex Assigned at Female 12/29/2021 10:36 AM EDT Legal Sex Female 11:26 AM EDT Gender Identity Female 12/29/2021 10:36 AM EDT Sexual Orientation Straight 12/29/2021 10 :36 AM EDT documented as of this encounter Plan of Treatment Not on file documented as of this encounter Results * XR KNEE 1-2 VIEWS (BILATERAL) (04/28/2024 3:05 PM EST) Anatomical Region Laterality Modality Knee Bilateral, Knee Right, Knee Left Computed Radiography 04/29/2024 12:4 0 PM EST Impressions 04/29/2024 12:42 PM EST Bilateral knee degenerative changes, severe in the medial compartments. Narrative 04/29/2024 12:42 PM EST XR KNEE 1-2 VIEWS (BILATERAL), XR KNEE 1-2 VIEWS (RIGHT) Referring clinician's provided indication for this examination in Epic: Pain COMPARISON: None FINDINGS: Left Knee: No acute fracture or dislocation. 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 Tricompartment degenerative changes, severe in the medial compartment. Right Knee: No acute fracture or dislocation. Tricompartment degenerative changes, severe in the medial compartment. Extensor mechanism enthesophytes. Small joint effusion. Facet calcifications. Procedure Note Jules Henning MD - 04/29/2024 XR KNEE 1-2 VIEWS (BILATERAL), XR KNEE 1-2 VIEWS (RIGHT) Referring clinician's provided indication for this examination in Epic:Pain COMPARISON: None FINDINGS: Left Knee: No acute fracture or dislocation. 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 Right Knee: No acute fracture or dislocation. Tricompartment degenerativechanges, severe in the medial compartment. Extensor mechanismenthesophytes. Small joint effusion. Facet calcifications. IMPRESSION: Bilateral knee degenerative changes, severe in the medial compartments. Lam Grimes MD IMG XR LOWER EXTREMITY Final Re sult documented in this encounter Visit Diagnoses Diagnosis Pain Generalized pain Pain- Primary Generalized pain documented in this encounter Care Teams Fabric And Textile Factory Worker Relationship Specialty Start Date End Date Benji Salcedo MD [facility] [address] [address] PCP - General Internal Medicine 12/29/21 11/03/24 Benji Salcedo MD [address] [address] PCP - General Internal Medicine 11/04/24 documented as of this encounter Additional Source Comments The information contained in this document represents components of the legal health record. It is not the complete legal health record.[facility]
--- OUTSIDE RECORDS SUMMARY | 2025-01-12 17:05 | XMS_ITS | Encounter Summary ---
Author Organization [facility] Address [address] [place] [address] Phone Care Team Providers Care Schedule Checker Name Role Phone Benji Salcedo MD Primary Care Provider [phone] Encounter Details Date Type Department Care Team (Late st Contact Info) Description 08/29/2021 Telephone [facility] [address] [place] [address] Taqueria Hook MD Social History [...] side of her back. Please advise CB# [phone] Thank you documented in this encounter Plan of Treatment Not on file documented as of this encounter Visit Diagnoses Not on filedocumented in this encounter Care Teams Schedule Checker Relationship Specialty Start Date End Date Benji Salcedo MD [address] [facility] [address] [place] [address] PCP - General 04/26/20 documented as of this encounter
--- OUTSIDE RECORDS SUMMARY | 2025-01-12 17:06 | XMS_ITS | Encounter Summary ---
Author Organization [facility] Address [address] [place] [address] Phone Care Team Providers Care Lvn Lpn Name Role Phone Benji Salcedo MD Primary Care Provider [phone] Encounter Details Date Type Department Care Team (Late st Contact Info) Description 08/15/2022 Telephone [facility] [address] [place] [address] Sue Tinoco Social History Tobacco [...] on filedocumented in this encounter Care Teams Lvn Lpn Relationship Specialty Start Date End Date Benji Salcedo MD [address] [place] [address] PCP - General 04/26/20 documented as of this encounter
--- OUTSIDE RECORDS SUMMARY | 2025-01-12 17:06 | XMS_ITS | Clinical Summary ---
Author Organization [facility] Address [address] [address] Phone Care Team Providers Care Risk Management Analyst Name Role Phone Benji Salcedo MD Primary Care Provider [phone] Allergies Active Allergy Reactions Criticality Noted Date Comments Catrachito Inhibitors Other (See Comments) 07/21/2020 Cephalexin Other (See Comments),Swelling 07/21/2020 Clindamycin 07/21/2020 Doxycycline Other (See Comments) 07/21/2020 Ibuprofen 07/13/2021 Iodinated Contrast Media 05/30/2024 Latex 07/21/2020 Penicillins Other (See Comments),Rash Low 07/21/2020 Other Reaction(s): Not available, Other (See Comments) Sulfa (Sulfonamide Antibiotics) Other (See Comments) 07/21/2020 Vancomycin Anaphylaxis High 07/21/2020 Other Reaction(s): Not available Medications amLODIPine-olmesar wood (VANITA) 10-20 mg per tablet Take 1 tablet by mouth daily. Active busPIRone (BUSPAR) 10 MG tablet Take 1 tablet by mouth 2 (two) times a day. Active furosemide (LASIX) 20 MG tablet 05/26/19 25 Active metoprolol tartrate (LOPRESSOR) 50 MG tablet Take 1 tablet by mouth 2 (two) times a day with meals. Active ondansetron (ZOFRAN-ODT) 4 MG disintegrating tablet TAKE 1 TABLET BY MOUTH 2 TIMES DAILY NEEDED FOR NAUSEA/VOMITING Active OZEMPIC 1 mg/dose (4 mg/3 mL) subcutaneous injection pen 12/28/19 24 Active traMADoL (ULTRAM) 50 mg tablet 05/27/19 25 Active triamcinolone acetonide 0.1 % cream triamcinolone acetonide 0.1 % topical cream APPLY BY TOPICAL ROUTE EVERY DAY A THIN FILM TO THE AFFECTED SKIN AREAS Active predniSONE (DELTASONE) 10 MG tablet 08/26/19 25 Active allopurinol (ZYLOPRIM) 100 MG tablet Take 200 mg by mouth daily. 09/03/19 25 Active acetaminophen with codeine (ACETAMINOPHEN-COD EINE) 120-12 mg/5 mL Soln Take by mouth. Activ e Active Problems Problem Noted Date Diagnosed Date Osteoarthritis of ankle and foot 11/13/2024 Peroneal tendinitis of right lower extremity Encounters Date Type Department Care Team Description 12/08/2024 1:00 PM EDT - 12/08/2024 1:53 PM EDT Surgery [facility] Cardiovascular And Interventional Radiology [address] [place] [id number] Bridgett Garcia PA-C Joint Aspiration with Fluoroscopy Guidance 12/08/2024 12:52 PM EDT - 12/08/2024 2:14 PM EDT Hospital Encounter [facility] Cardiovascular And Interventional Radiology [address] [place] [id number] Alonzo Garza MD Discharge Disposition: Home or Self Care 12/08/2024 Procedure Pass [facility] Cardiovascular And Interventional Radiology [address] [place] [id number] 11/13/2024 1:00 PM EDT Office Visit [facility] Orthopedics & Sports Medicine [address] [place] [phone] Jules Erickson MD Osteoarthritis of ankle and foot, unspecified laterality (Primary Dx); Peroneal tendinitis of right lower extremity 11/05/2024 8:45 AM EDT Telemedicine [facility] Orthopedics at [address] [address] Lam Grimes MD Primary osteoarthritis of left knee (Primary Dx); Primary osteoarthritis of right knee 11/05/2024 Orders Only [facility] Orthopedics & Sports Medicine [address] [place] [phone] Shalom Yusuf MA Right foot pain (Primary Dx) 11/04/2024 Telephone [facility] Department of Orthopaedics [address] [place] [address] Lam Grimes MD 11/03/2024 Ancillary Orders [facility],Outside Imaging [address] [place] [address] Larry Juarez MD 10/13/2024 Telephone [facility] Orthopedics & Sports Medicine [address] [place] [id number] Jules Erickson MD Waiting Records & Imaging from Last 3 Months Social History Tobacco Use Types Packs/Day Years Used Date Smoking Tobacco: Never Smokeless Tobacco: Never Tobacco Cessation:Counseling Given: Not Answered Alcohol Use Standard Drinks/Week Comments Not Currently 0 (1 standard drink = 0.6 oz pur e alcohol) Education Answer Date Recorded Are you interested in more education? Not on florencio e 08/11/2022 Are you concerned about learning? Not on file 08/11/2022 No 08/11/2022 No 08/11/2022 Digital Access Answer Date Recorded No 09/11/2022 No 09/11/2022 Reliable internet access at home? Not on file 09/11/2022 Device with a working camera? Not on file Intimate Partner Violence Answer Date R ecorded Are you denied basic needs s uch as food, clothing, or medical care? No 12/08/2024 In the past 12 months have y ou been in a relationship with a person who hurts, threatens, or tries to control you? No 12/08/2024 Are you denied basic needs s uch as food, clothing, or medical care? No 12/08/2024 In the past 12 months have y ou been in a relationship with a person who hurts, threatens, or tries to control you? No 12/08/2024 Comments Unknown Sex and Gender Information Value Date Recorded Sex Assigned at Female 12/29/2021 10:36 AM EDT Legal Sex Female 11:26 AM EDT Gender Identity Female 12/29/2021 10:36 AM EDT Sexual Orientation Straight 12/29/2021 10 :36 AM EDT Last Filed Vital Signs Vital Sign Reading Time Taken Comments Blood Pressure 105/69 12/08/2024 1:00 PM EDT Pulse 69 12/08/2024 1:00 PM EDT Temperature 37.2 C (98.9 F) 08/12/2024 6:34 PM EDT Respiratory Rate 20 08/12/2024 6:34 PM EDT Oxygen Saturation 98% 12/08/2024 1:00 PM EDT Inhaled Oxygen Concentration - - Weight 87.1 kg (192 lb) 11/13/2024 1:05 PM EDT Height 162.6 cm (5' 4 ) 11/13/2024 1:05 PM EDT Body Mass Index 32.96 11/13/2024 1:05 PM EDT Plan of Treatment Health Maintenance Due Date Last Done Comments CREATININE LEVEL 1954 LIPID PANEL 1954 DEPRESSION SCREENING 1966 HEPATITIS C SCREENING 1972 MAMMOGRAM 1994 COLOGUARD 1999 COLONOSCOPY 1999 COLORECTAL CANCER SCREENING 1999 FIT TEST 1999 FOBT 1999 SIGMOIDOSCOPY 1999 VIRTUAL COLONOSCOPY 1999 OSTEOPOROSIS SCREENING INITIAL (ONE-TIME) 2019 ZOSTER VACCINES (2 of 2) 03/20/2020 01/24/2020 INFLUENZA VACCINE (#1) 2024 , 01/16/2023, 01/10/2022, Additional history exists COVID-19 VACCINE (4 - 2024- season) 2024 04/29/2021, 08/23/2020, 08/02/2020 RSV VACCINE (1 - 1-dose 75+ series) 2029 Adult Td,Tdap Booster 07/06/2031 07/05/2021 PNEUMOCOCCAL VACCINES (50+ years) Completed 01/17/2022, 04/26/2006 SMOKING STATUS SCREENING (Once After 26 Yrs) Completed 11/13/2024 HEPATITIS A VACCINES Aged Out No long er eligible based on patient's age to complete this topic HIB VACCINES Aged Out No longer eligi ble based on patient's age to complete this topic MENINGOCOCCAL VACCINES (ACWY) Aged Out No longer eligible based on patient's age to complete this topic MENINGOCOCCAL VACCINES (B) Aged Out N o longer eligible based on patient's age to complete this topic Medical Devices Not on file Procedures Procedure Name Priority Date/Time Associated Diagnosis Comments JOINT ASPIRATION WITH FLUOROSCOPY GUIDANCE (IR) Routine 12/08/2024 1:54 PM EDT Osteoarthritis of ankle and foot, unspecified laterality XR FOOT (RIGHT) Routine 11/05/2024 10:48 AM EDT Right foot pain from Last 3 Months Results * JOINT ASPIRATION WITH FLUOROSCOPY GUIDANCE (IR) (12/08/2024 1:54 PM EDT) Anatomical Region Laterality Modality X-Ray Angiograph y Narrative 12/08/2024 3:53 PM EDT Impression: 1. Fluoroscopic guided right navicular-cuneiform joint steroid injection/arthrogram. History: Patient with history of right mid-foot pain who presents for right mid-foot joint injection. Target is the navicular-cuneiform joint as this communicates with the 2nd tarsalmetatarsal joint. Dinkey Engine Operator: Bridgett Garcia PA-C Anesthesia: Local anesthesia was obtained with1% lidocaine. Contrast: Gadoterate meglumine 5 mmol per 10 mL, 2 mL intra-articular. Other Medications: Kenalog 1 ml (40 mg) intra-articular Bupivacaine 0.25% 2 mL intra-articular Estimated Blood Loss: None Specimens: None Radiation Dose: Exposure (mGy) = 1.000; 2. DAP (uGy-m2) = 6.980; Fluoro Time (min) = 1.0 Complications: None immediate Disposition: Stable on discharge home. Description of Procedure & Findings: Written and oral informed consent was obtained from the patient (or manufacturers service representative) after explaining all risks and benefits of the procedure as well as alternatives and right to refuse. Patient was brought to the angiography suite. Patient verification and a timeout procedure were performed as per standard hospital procedure. The shoulder was exposed and prepped in usual sterile fashion. All elements of maximum sterile barrier were used including mask, cap, gloves, sterile drapes, hand hygiene and cutaneous antisepsis with 2% chlorhexidine. Using fluoroscopic guidance, a 22 gauge spinal needle was advanced toward and subsequently into the joint space. A small amount of Omnipaque contrast was administered through the needle verifying position within the joint space on fluoroscopy. The therapeutic steroid injection was carried out without difficulty using fluoroscopic guidance. The needle was removed and manual compression was applied. A dry sterile dressing was applied. Images saved in the patient's electronic medical record. Dr. Alonzo Garza was the attending interventional radiologist for this procedure. Jules Erickson MD IM IR Final Result from Last 3 Months Insurance MEDICARE A MEDICARE A MEDICARE [place] [address] [place] [address] MEDICARE A [facility] MEDICARE A Member Subscriber Plan / Payer (Ef fective 2019-Present) Name:Belgica Pierce Member ID:[id number] Relation to Subscriber:Self Name:Belgica Pierce Subscriber ID:[id number] Payer ID:[id number] Group ID:Not on file Type:Medicare Address: [employer] [address] [address] [facility] MEDICARE A MEDICARE A MEDICARE A Care Teams Risk Management Analyst Relationship Specialty Start Date End Date Benji Salcedo MD [address] [place] [address] PCP - General Internal Medicine 11/04/24 Additional Source Comments The information contained in this document represents components of the legal health record. It is not the complete legal health record.[facility]
--- OUTSIDE RECORDS SUMMARY | 2025-01-12 17:06 | XMS_ITS | Clinical Summary ---
Author Organization [facility] Address [address] [place] [address] Care Team Providers Care Die Polisher Name Role Phone Benji Salcedo MD Primary [...] age to complete this topic Care Teams Die Polisher Relationship Specialty Start Date End Date Benji Salcedo MD PCP - General Internal Medicine 09/10/14
--- OUTSIDE RECORDS SUMMARY | 2025-01-12 17:06 | XMS_ITS | Clinical Summary ---
Author Organization [facility] Address [address] [place] [address] Phone Care Team Providers Care Bessemer Regulator Name Role Phone Benji Salcedo MD Primary Care Provider [phone] Surgical History Surgery Date Site/Laterality Comments SECTION [...] Zoster Vaccines (2 of 2) 03/20/2020 01/24/2020 Depression Screening 04/16/2024 Cholesterol Screening (Lipid Panel) 10/08/2024 Colorectal Cancer Screening: Colonoscopy 10/08/2024 Falls Risk Assessment 10/08/2024 Hepatitis C Screening 10/08/2024 Osteoporosis Screening (Bone Density Screening) 10/08/2024 Social Influencers of Health Screening 10/08/2024 Hypertension/CHF/CAD Annual BMP Blood Test 10/10/2024 COVID-19 Vaccine ( season) 2024 04/29/2021, 08/23/2020, 08/02/2020 Influenza Vaccine (#1) 2024 , 01/16/2023, 01/10/2022, Additional history exists RSV Immunization [...] patient's age to complete this topic Insurance MEDICARE Care Teams Bessemer Regulator Relationship Specialty Start Date End Date Benji Salcedo MD PCP - General Internal Medicine 04/02/08
--- OUTSIDE RECORDS SUMMARY | 2025-01-12 17:06 | XMS_ITS | Patient Health Record ---
Author Organization [facility] Address [address], [place] [id number] Care Team Providers Care Rehab Trainer Name Role Phone PILAR HELENE Primary Care Provider [phone] MARY LEWIS Unavailable ALLERGIES Allergen (clinical drug ingredient) Drug/Non Drug [...] Unknown Drug Allergy Activ e REASON FOR REFERRAL Reason (2)New patient Appt [facility] Orthopedics Diagnosis 1 Primary osteoarthrit is of right knee (M17.11) Referral Organization [facility] Bridger mosher Referring Provider First Name HELENE Referring Provider Last Name PILAR Referring Provider Speciality Internal edicine Referred Provider Specialty Orthopedic S urgery General Notes Elena RAMIREZ Call Ce nter 05/14/2024 12:32:58 PM >Pt asking for an orthopedic who will do robotic surgery, pt asking for this to be expedited, see message started. Referral Priority Urgent Reason PT eval and treat Diagnosis 1 Foot pain, left (M79 .672) Referral Organization [facility] Bridger mosher Referring Provider First Name HELENE Referring Provider Last Name PILAR Referring Provider Speciality Internal M edicine Referred Provider Specialty Physical [facility] Referral Priority Routine Reason (faed thru EMR 5) New patient appt [facility] Drug Abuse Program Coordinator, [address] [place] [address] fax: [phone]. please send MRI Diagnosis 1 Tendinitis of right foot (M77.51) Referral Organization [facility] As sociates Referring Provider First Name HELENE Referring Provider Last Name PILAR Referring Provider Speciality Internal M edicine Referred Provider Specialty Orthopedic S urgery General Notes Radha RAMIREZ Jaime FORESTRY TREE PRUNER 04/2024 02:28:47 PM >Per patient [place] has appointment with your physician 10/20/24. Will send MRI result/report to you separately., Mary Ellen RAMIREZ Admin 11/10/2024 08:52:16 AM > no referral requierd with ppo plan Referral Priority Urgent Referral Appointment Date 10/20/2024 MEDICATIONS Medication SIG (Take, Route, Frequency, Duration) Notes Start Date End Date Status busPIRone HCl 10 MG 1 tablet Orally Twic e a day for 30 days Active Nystatin 651898 UNIT/GM 1 application Ex ternally Twice a day for 30 day(s) 06/13/2023 Active traMADol HCl 50 MG TAKE 1 TO 2 TABLETS BY MOUTH EVERY 8 HOURS NEEDED FOR PAIN for 7 10/15/2024 Active Ozempic (2 MG/DOSE) 8 MG/3ML as directed Subcutaneous every 7 days for 28 days 10/01/2024 Active Allopurinol 100 MG 1 tablet Orally Once a day Active Acetaminophen-Codeine 300-30 MG TAKE 1 TABLET NEEDED BY MOUTH 3 TIMES A DAY FOR 7 DAYS for 7 12/10/2024 Active FreeStyle Ladonna 3 Sensor - as directed a pplied to skin as directed for 90 days Active Furosemide 20 MG 1 tablet Orally Once a day prn for 30 days Active Metoprolol Tartrate 50 MG TAKE ONE TABLE T BY MOUTH TWICE A DAY for 90 Active amLODIPine-Olmesartan 10-20 MG 1 tablet Orally Once a day A ctive IMMUNIZATIONS Vaccine Route Administration Date Status Comme nts Covid Unknown 08/02/2020 Administered Covid Unknown 08/23/2020 Administered Influenza, Fluarix Quad Unknown 02/05/2013 Administered Pneumococcal (PPV23, adult) IM Intramuscular 01/20/2015 Administered Td (Tetanus Diphtheria) IM Intramuscular 11/14/2005 Admini stered Td (Tetanus Diphtheria) Unknown 07/05/2021 Administered Tetanus toxoid IM Intramuscular 01/28/2015 Administered Zoster recombinant Unknown 02/05/2013 Administered SOCIAL HISTORY Tobacco Use: Social History Observation Description Date Details (start date - stop date) Never Smoker NA - NA Sex Assigned At : Social History Observation Description Sex Assigned At Unknown Smoking Question Answer Notes Are you a: never smoker Section Notes: pt never smoke pt never smoke pt never smoke pt never smoke pt never smoke pt never smoke pt never smoke pt never smoke pt never smoke pt never smoke pt never smoke pt never smoke pt never smoke pt never smoke pt never smoke pt never smoke PROBLEMS Problem Type ICD Code Onset Dates Problem Status W/U Status Risk SNOMED Code Notes Problem Cough (R05) Active confirmed 69068248 Problem Obstructive sleep apnea (G47.33) Active confirmed 84840484 Problem GERD without esophagitis (K21.9) Active confirmed 588389098 Problem Mixed hyperlipidemia (E78.2) Active confirmed 394048767 Problem Anxiety (F41.9) Active confirmed 908002 02 Problem Primary osteoarthritis of both knees (M17.0) Active confirmed 232868857 Problem Primary osteoarthritis of right knee (M17.11) Active confirmed 382260237021212 Problem Constipation, unspecified constipation type (K59.00) Active confirmed 43348491 Problem Gouty arthritis (M10.9) Active confirmed 16965402 Problem Acute idiopathic gout of right foot (M10.071) Active confirmed 95870915 Problem Bronchitis with bronchospasm (J20.9) Active confirmed 25905261 Problem Meningioma (D32.9) Active confirmed 820010092 Problem Leukocytosis, unspecified type (D72.829) Active confirmed 852259577 Problem Type 2 diabetes mellitus with hyperglycemia, without long-term current use of insulin (E11.65) Active confirmed Hyperglycem ia due to type 2 diabetes mellitus (479222442754194) Problem Type 2 diabetes mellitus without complication, without long-term current use of insulin (E11.9) Active confirmed Type II diab etes mellitus without complication (661628439) Problem Persistent depressive disorder (F34.1) Active confirmed 4373283697 Problem Stasis dermatitis (I87.2) Active confirmed 71475576 Problem Other fatigue (R53.83) 04/12/20 Active confirmed Fatigue (13611545) Problem Essential (primary) hypertension (I10) 04/12/20 Active confirmed Essential hypertension (72054737) Problem Dorsalgia, unspecified (M54.9) 12/28/20 09 Active confirmed Backache (603034192) VITAL SIGNS Blood pressure diastolic 81 mm Hg 11/18/2024 Height 62.5 in 11/18/2024 Blood pressure systolic 134 mm Hg 11/18/2024 Weight 194 lbs 11/18/2024 BMI 34.91 kg/m2 11/18/2024 Encounters Encounter Location Date Provider Diagnosis [address] [address] 01/14/2024 HELENE SHANDAKEN Essential (primary) hypertension I10 ; Lightheadedness R42 ; Other fatigue R53.83 and Type 2 diabetes mellitus without complication, without long-term current use of insulin E11.9 [place] [id number] 01/18/2024 [place] [id number] 01/21/2024 HELENE SHANDAKEN Acute cough R05.1 [place] [id number] 01/28/2024 [place] [id number] 02/04/[address] [address] 02/04/2024 [place] [id number] 02/04/2024 HELENE SHANDAKEN Gastroenteritis K52. 9 and Essential (primary) hypertension I10 [address] [address] 02/06/2024 [place] [id number] 02/06/[address] [address] 02/10/2024 MARY LEWIS [address] [address] 02/13/[address] [address] 02/13/2024 HELENE SHANDAKEN C. difficile diarrhe a A04.72 ; Abdominal cramping R10.9 and Essential (primary) hypertension I10 [facility] [address] [place] [address] 02/15/2024 [facility] [address] [place] [address] 02/21/2024 [facility] [address] [place] [id number] 02/27/2024 [facility] Acute diarrhea R19.7 [facility] [address] [place] [address] 02/29/2024 [facility] Type 2 diabetes mellitus without complication, without long-term current use of insulin E11.9 [facility] [address] [place] [id number] 03/05/2024 [facility] Acute diarrhea R19.[address] [address] 03/05/[address] [address] 03/06/2024 [facility] Essential (primary) hypertension I10 and Mixed hyperlipidemia E78.2 [facility] [address] [place] [address] 03/10/[address] [address] 03/11/[address] [address] 03/11/2024 HELENE SHANDAKEN Left leg cellulitis L03.116 ; Essential (primary) hypertension I10 and Primary osteoarthritis of right knee M17.[address] [address] 03/12/[address] [address] 03/25/2024 [facility] Essential (primary) hypertension I10 ; Type 2 diabetes mellitus with hyperglycemia, without long-term current use of insulin E11.65 ; Mixed hyperlipidemia E78.2 ; Persistent depressive disorder F34.1 ; Meningioma D32.9 ; Primary osteoarthritis of right knee M17.11 and Encounter for general adult medical examination without abnormal findings Z00.[address] [address] 03/28/2024 HELENE SHANDAKEN Acute diarrhea R19.7 [facility] [address] [facility] [place] [address] 04/03/2024 [facility] [address] [facility] [place] [address] 04/03/2024 HELENE [facility] [address] [facility] [place] [address] 04/15/2024 HELENE SHANDAKEN Acute diarrhea R19.7 [facility] [address] [facility] [place] [address] 04/30/2024 [facility] [address] [facility] [place] [address] 04/30/2024 HELENE SANDOVALFORD Primary osteoarthritis of right knee M17.11 [facility] [address] [facility] [facility] [place] [address] 05/02/2024 [facility] [address] [place] [address] 05/07/2024 [facility] [address] [facility] [place] [address] 05/09/2024 [facility] [address] [facility] [place] [address] 05/09/2024 HELENE SHANDAKEN Acute diarrhea R19.7 [facility] [address] [facility] [place] [address] 05/12/2024 [facility] [address] [place] [address] 05/14/2024 [facility] [address] [place] [address] 05/14/2024 [facility] [address] [place] [address] 05/16/2024 [facility] [address] [place] [address] 05/22/2024 [facility] [address] [place] [address] 2024 [facility] [address] [place] [address] 05/29/2024 [facility] [address] [place] [address] 06/03/2024 HELENE SHANDAKEN Acute diarrhea R19.7 [facility] [address] [facility] [facility] [place] [address] 06/03/2024 [facility] [address] [facility] [place] [address] 06/16/2024 [facility] [address] [facility] [address] 06/30/2024 [facility] [address] [facility] [place] [address] 07/07/2024 [facility] [address] [facility] [place] [address] 07/11/2024 [facility] [address] [facility] [place] [address] 07/11/2024 [facility] [address] [facility] [place] [address] 07/14/2024 HELENE SHANDAKEN Essential (primary) hypertension I10 ; Primary osteoarthritis of right knee M17.11 ; Type 2 diabetes mellitus without complication, without long-term current use of insulin E11.9 and Right foot pain M79.671 [facility] [address] [place] [address] 07/15/2024 [facility] [address] [place] [address] 07/18/2024 [facility] Right foot pain M79.671 [facility] [address] [place] [address] 07/25/2024 [facility] Right foot pain M79.671 [facility] [address] [place] [address] 08/04/2024 [facility] [address] [place] [address] 08/04/2024 [facility] [address] [place] [id number] 08/07/2024 HELENE SHANDAKEN Essential (primary) hypertension I10 ; Abdominal cramping R10.9 and Foot pain, left M79.672 [facility] [address] [place] [address] 08/11/2024 [facility] [address] [place] [address] 08/14/2024 [facility] [address] [place] [address] 08/20/2024 [facility] [address] [place] [address] 08/21/2024 HELENE SHANDAKEN Acute idiopathic gou t of right foot M10.071 [facility] [address] [place] [address], [place] [address] 08/25/2024 [facility] [address] [place] [address] 09/03/2024 [facility] [address] [place] [address] 09/09/[address] [address] 09/11/[address] [address] 09/15/2024 HELENE SHANDAKEN Right foot pain M79.671 ; Essential (primary) hypertension I10 and Gouty arthritis M10.[address] [address] 09/17/[address] [address] 09/17/[address] [address] 09/17/2024 HELENE SHANDAKEN Cellulitis of hand L03.[address] [address] 09/23/[address] [address] 10/01/[address] [address] 10/01/2024 HELENE SHANDAKEN Type 2 diabetes mellitus with hyperglycemia, without long-term current use of insulin E11.65 ; Right foot pain M79.671 ; Essential (primary) hypertension I10 and Traumatic injury of head, initial encounter S09.90XA [address] [address] 10/02/2024 [facility] Right foot pain M79.671 [facility] [address] [place] [address] 10/03/2024 [facility] [address] [place] [address] 10/03/2024 [facility] [address] [place] [address] 10/03/2024 [facility] [address] [place] [address] 10/07/2024 [facility] [address] [place] [address] 10/07/2024 [facility] [address] [place] [address] 10/10/2024 [facility] Tendinitis of right foot M77.51 [facility] [address] [place] [address] 10/15/2024 [facility] [address] [place] [address] 10/23/2024 [facility] Type 2 diabetes mellitus without complication, without long-term current use of insulin E11.9 and Gouty arthritis M10.9 [facility] [address] [place] [address] 11/03/2024 [facility] [address] [place] [address] 11/12/2024 [facility] [address] [place] [address] 11/13/2024 [facility] [address] [place] [address] 11/18/2024 [facility] Right foot pain M79.671 ; Essential (primary) hypertension I10 and Type 2 diabetes mellitus without complication, without long-term current use of insulin E11.9 [facility] [address] [place] [address] 11/18/2024 [facility] Right foot pain M79.671 [facility] [address] [place] [address] 11/19/2024 [facility] [address] [place] [address] 12/16/2024 [facility] [address] [place] [address] 12/22/2024 [facility] Encounter Date Diagnosis Assessment Notes Treatment Notes Treatment Clinical Notes Section Notes 01/14/2024 Essential (primary) hypertension (ICD-10 - I10) 1. Lightheadedness/fa tigue: BP is on the low side and I suspect is a contributing factor. She is also still recovering from COVID. We are going to decrease metoprolol to 25 mg twice daily and continue her current Ross. I have asked her to hold the furosemide for the next week as well and we will reassess at her appointment for follow-up in january 2. Hypertension: Concerns as above. Will reassess with reduced therapy at follow-up appointment 3. Diabetes: We will update A1c today on current therapy 01/14/2024 Lightheadedness (ICD-10 - R42) 1. Lightheadedness/fa tigue: BP is on the low side and I suspect is a contributing factor. She is also still recovering from COVID. We are going to decrease metoprolol to 25 mg twice daily and continue her current Ross. I have asked her to hold the furosemide for the next week as well and we will reassess at her appointment for follow-up in january 2. Hypertension: Concerns as above. Will reassess with reduced therapy at follow-up appointment 3. Diabetes: We will update A1c today on current therapy 01/21/2024 Acute cough (ICD-10 - R05.1) 03/25/2024 Essential (primary) hypertension (ICD-10 - I10) Right 1. Hypertension: Stable on present amlodipine and metoprolol. No changes made today 2. Diabetes: Stable on Ozempic 1 mg. She will be next due for an A1c in late April 3. Hyperlipidemia: Stable off therapy. No changes made today 4. Depression/anxiety : Satisfied with current buspirone 5. Meningioma: Had stable MRI at this time last year. She has no symptoms and would like to wait on repeat imaging at this time 6. Osteoarthritis of the right knee Awaiting orthopedic appointment at the end of the month. Will renew tramadol for nocturnal use in the meantime 7. Routine healthcare maintenance: She will book her mammogram at [facility]. Colonoscopy was done in 2021 and is next due in 2026. Fasting labs are up-to-date. She has had her vaccinations 03/25/2024 Type 2 diabetes mellitus with hyperglycemia, without long-term current use of insulin (ICD-10 - E11.65) 1. Hypertension: Stable on present amlodipine and metoprolol. No changes made today 2. Diabetes: Stable on Ozempic 1 mg. She will be next due for an A1c in late April 3. Hyperlipidemia: Stable off therapy. No changes made today 4. Depression/anxiety : Satisfied with current buspirone 5. Meningioma: Had stable MRI at this time last year. She has no symptoms and would like to wait on repeat imaging at this time 6. Osteoarthritis of the right knee Awaiting orthopedic appointment at the end of the month. Will renew tramadol for nocturnal use in the meantime 7. Routine healthcare maintenance: She will book her mammogram at [facility]. Colonoscopy was done in 2021 and is next due in 2026. Fasting labs are up-to-date. She has had her vaccinations 02/04/2024 Gastroenteritis (ICD-10 - K52.9) 1. Gastroenteritis: Versus food poisoning: We will check a stool profile. She will use Zofran which she already has at home twice a day right now and will focus on taking in fluids. She will hold her diuretic for the next couple days while working on hydration issues 2. Hypertension: Stable on present regimen. No changes made today 02/04/2024 Essential (primary) hypertension (ICD-10 - I10) 1. Gastroenteritis: Versus food poisoning: We will check a stool profile. She will use Zofran which she already has at home twice a day right now and will focus on taking in fluids. She will hold her diuretic for the next couple days while working on hydration issues 2. Hypertension: Stable on present regimen. No changes made today 02/13/2024 Abdominal cramping (ICD-10 - R10.9) 1. C. difficile diarrhea and E. coli diarrhea: Stressed the importance of completing her course of fidaxomicin to clear infection. We will consider rechecking a stool profile after she completes antibiotic therapy 2. Abdominal cramping: Will trial hyoscyamine to assist with cramping 3. Hypertension: Stable off losartan at this time. Will follow on amlodipine and metoprolol. She is to have repeat renal labs in 2 weeks 02/13/2024 C. difficile diarrhea (ICD-10 - A04.72) 1. C. difficile diarrhea and E. coli diarrhea: Stressed the importance of completing her course of fidaxomicin to clear infection. We will consider rechecking a stool profile after she completes antibiotic therapy 2. Abdominal cramping: Will trial hyoscyamine to assist with cramping 3. Hypertension: Stable off losartan at this time. Will follow on amlodipine and metoprolol. She is to have repeat renal labs in 2 weeks 02/27/2024 Acute diarrhea (ICD-10 - R19.7) 02/29/2024 Type 2 diabetes mellitus without complication, without long-term current use of insulin (ICD-10 - E11.9) 03/05/2024 Acute diarrhea (ICD-10 - R19.7) 03/06/2024 Essential (primary) hypertension (ICD-10 - I10) 03/06/2024 Mixed hyperlipidemia (ICD-10 - E78.2) 03/11/2024 Essential (primary) hypertension (ICD-10 - I10) 1. Left leg cellulitis: We will switch to Bactrim which she has tolerated well in the past. She will let me know if it is not improving readily in the next few days 2. Hypertension: Stable back on Ross. Continue present dosing 3. Osteoarthritis of the right knee: She cannot get an orthopedic appointment till late March. We are going to use cautious tramadol at nighttime for sleep in the interim as she cannot take NSAIDs due to her chronic kidney disease and Tylenol has been ineffective 03/11/2024 Left leg cellulitis (ICD-10 - L03.116) 1. Left leg cellulitis: We will switch to Bactrim which she has tolerated well in the past. She will let me know if it is not improving readily in the next few days 2. Hypertension: Stable back on Ross. Continue present dosing 3. Osteoarthritis of the right knee: She cannot get an orthopedic appointment till late March. We are going to use cautious tramadol at nighttime for sleep in the interim as she cannot take NSAIDs due to her chronic kidney disease and Tylenol has been ineffective 03/28/2024 Acute diarrhea (ICD-10 - R19.7) 04/15/2024 Acute diarrhea (ICD-10 - R19.7) 04/30/2024 Primary osteoarthritis of right knee (ICD-10 - M17.11) 1. Right knee osteoarthritis: Reportedly uctc-pe-zaxu and end-stage. Current orthopedic appointment in [place] is not until August and patient does not wish to wait this long. She requests referral to [facility]. We will trial cautious Tylenol with codeine at bedtime in the meantime. 05/09/2024 Acute diarrhea (ICD-10 - R19.7) 1. Acute diarrh ea: Patient has had both C. difficile and E. coli in recent months. Explained not safe to treat empirically. This could also be norovirus. Stress could also be contributing factor. I have ordered a stool profile for her and further recommendations will be made once this returns. She will hydrate in the meantime and if abdominal pain becomes more persistent I instructed her to go to the ER for CAT scan 06/03/2024 Acute diarrhea (ICD-10 - R19.7) 07/14/2024 Essential (primary) hypertension (ICD-10 - I10) 1. Hypertension: Well-controlled on present therapy. No changes made today 2. Osteoarthritis right knee: Has a second opinion with the [place] doctor who does the procedure robotically. She intends to follow through on this later in the year 3. Diabetes: Needs an updated A1c in the lab today. She continues on Ozempic and is tolerating the current 1 mg dose 4. Right foot pain: Question tendinitis versus possible gout. She will check a uric acid level today and we will cover with a Medrol Dosepak. 07/14/2024 Primary osteoarthritis of right knee (ICD-10 - M17.11) 1. Hypertension: Well-controlled on present therapy. No changes made today 2. Osteoarthritis right knee: Has a second opinion with the [facility] doctor who does the procedure robotically. She intends to follow through on this later in the year 3. Diabetes: Needs an updated A1c in the lab today. She continues on Ozempic and is tolerating the current 1 mg dose 4. Right foot pain: Question tendinitis versus possible gout. She will check a uric acid level today and we will cover with a Medrol Dosepak. 07/18/2024 Right foot pain (ICD-10 - M79.671) 07/25/2024 Right foot pain (ICD-10 - M79.671) 08/07/2024 Essential (primary) hypertension (ICD-10 - I10) 1: abdominal cramping: Patient is indecisive. I entered another stool study should she have further diarrhea. We discussed having a CAT scan but she wishes to wait till Sunday to see if she continues to improve before making a decision 2. Hypertension: Stable on present therapy. No changes made today 3. Left foot pain: Does not appear consistent with gout at present. Podiatry told her this was tendinitis and recommended PT but she declined. We discussed reconsidering this decision and I gave her a referral for PT today 08/07/2024 Abdominal cramping (ICD-10 - R10.9) 1: abdominal cramping: Patient is indecisive. I entered another stool study should she have further diarrhea. We discussed having a CAT scan but she wishes to wait till Sunday to see if she continues to improve before making a decision 2. Hypertension: Stable on present therapy. No changes made today 3. Left foot pain: Does not appear consistent with gout at present. Podiatry told her this was tendinitis and recommended PT but she declined. We discussed reconsidering this decision and I gave her a referral for PT today 08/21/2024 Acute idiopathic gout of right foot (ICD-10 - M10.071) 1. Gout right foot: Presumed based on presentation and known history of elevated uric will treat with a Medrol Dosepak and consider initiation of allopurinol once acute symptoms have stabilized 2. Hypertension: Stable on present regimen. No changes made today 09/15/2024 Essential (primary) hypertension (ICD-10 - I10) 1. Right foot pain: Possibly gout but with persistent pain despite high-dose steroids causing to question whether this is the sole cause of her pain. I am going to order a bone scan to rule out a stress fracture. Emphasized that in order to control her gout we need to lower her uric acid level in taking her allopurinol consistently is vital to this process. 2. Hypertension: Stable on present therapy. No changes made today 09/15/2024 Right foot pain (ICD-10 - M79.671) 1. Right foot pain: Possibly gout but with persistent pain despite high-dose steroids causing to question whether this is the sole cause of her pain. I am going to order a bone scan to rule out a stress fracture. Emphasized that in order to control her gout we need to lower her uric acid level in taking her allopurinol consistently is vital to this process. 2. Hypertension: Stable on present therapy. No changes made today 09/17/2024 Cellulitis of hand (ICD-10 - L03.119) 1. Cellulitis of the left hand: This was related to a claw and not a bite. Patient is allergic to penicillin and doxycycline. Will use Bactrim to include staph coverage. Patient will let me know if she is not improving with this treatment 10/01/2024 Right foot pain (ICD-10 - M79.671) 1. Right foot pain: Need to await bone scan tomorrow to see if there is evidence of stress fracture. 2. Type 2 diabetes mellitus: Will bump Ozempic to the 2 mg dose given she is tolerating 1 mg well and sugars are inching higher 3. Hypertension: Stable on present therapy. No changes made today 4. Head trauma: Given pain since fall last night we will set up the urgent CT scan 10/01/2024 Type 2 diabetes mellitus with hyperglycemia, without long-term current use of insulin (ICD-10 - E11.65) 1. Right foot pain: Need to await bone scan tomorrow to see if there is evidence of stress fracture. 2. Type 2 diabetes mellitus: Will bump Ozempic to the 2 mg dose given she is tolerating 1 mg well and sugars are inching higher 3. Hypertension: Stable on present therapy. No changes made today 4. Head trauma: Given pain since fall last night we will set up the urgent CT scan 10/02/2024 Right foot pain (ICD-10 - M79.671) 10/10/2024 Tendinitis of right foot (ICD-10 - M77.51) 10/23/2024 Gouty arthritis (ICD-10 - M10.9) 10/23/2024 Type 2 diabetes mellitus without complication, without long-term current use of insulin (ICD-10 - E11.9) 11/18/2024 Essential (primary) hypertension (ICD-10 - I10) 1. Right foot pain: Explained she needs to pick a track and follow through with 1 of these providers recommendations. We decided to follow through with the [...] on current regimen of nutritional control 11/18/2024 Right foot pain (ICD-10 - M79.671) 1. Right foot pain: Explained she needs to pick a track and follow through with 1 of these providers recommendations. We decided to follow through with the [...] on current regimen of nutritional control 11/18/2024 Right foot pain (ICD-10 - M79.671) 11/18/2024 Type 2 diabetes mellitus without complication, without long-term current use of insulin (ICD-10 - E11.9) 1. Right foot pain: Explained she needs to pick a track and follow through with 1 of these providers recommendations. We decided to follow through with the [...] Follow on current regimen of nutritional control 10/01/2024 Essential (primary) hypertension (ICD-10 - I10) 1. Right foot pain: Need to await bone scan tomorrow to see if there is evidence of stress fracture. 2. Type 2 diabetes mellitus: Will bump Ozempic to the 2 mg dose given she is tolerating 1 mg well and sugars are inching higher 3. Hypertension: Stable on present therapy. No changes made today 4. Head trauma: Given pain since fall last night we will set up the urgent CT scan 09/15/2024 Gouty arthritis (ICD-10 - M10.9) 1. Right foot pain: Possibly gout but with persistent pain despite high-dose steroids causing to question whether this is the sole cause of her pain. I am going to order a bone scan to rule out a stress fracture. Emphasized that in order to control her gout we need to lower her uric acid level in taking her allopurinol consistently is vital to this process. 2. Hypertension: Stable on present therapy. No changes made today 08/07/2024 Foot pain, left (ICD-10 - M79.672) 1: abdominal cramping: Patient is indecisive. I entered another stool study should she have further diarrhea. We discussed having a CAT scan but she wishes to wait till Sunday to see if she continues to improve before making a decision 2. Hypertension: Stable on present therapy. No changes made today 3. Left foot pain: Does not appear consistent with gout at present. Podiatry told her this was tendinitis and recommended PT but she declined. We discussed reconsidering this decision and I gave her a referral for PT today 07/14/2024 Type 2 diabetes mellitus without complication, without long-term current use of insulin (ICD-10 - E11.9) 1. Hypertension: Well-controlled on present therapy. No changes made today 2. Osteoarthritis right knee: Has a second opinion with the [facility] doctor who does the procedure robotically. She intends to follow through on this later in the year 3. Diabetes: Needs an updated A1c in the lab today. She continues on Ozempic and is tolerating the current 1 mg dose 4. Right foot pain: Question tendinitis versus possible gout. She will check a uric acid level today and we will cover with a Medrol Dosepak. 03/11/2024 Primary osteoarthritis of right knee (ICD-10 - M17.11) 1. Left leg cellulitis: We will switch to Bactrim which she has tolerated well in the past. She will let me know if it is not improving readily in the next few days 2. Hypertension: Stable back on Ross. Continue present dosing 3. Osteoarthritis of the right knee: She cannot get an orthopedic appointment till late March. We are going to use cautious tramadol at nighttime for sleep in the interim as she cannot take NSAIDs due to her chronic kidney disease and Tylenol has been ineffective 01/14/2024 Other fatigue (ICD-10 - R53.83) 1. Lightheadedness/fa tigue: BP is on the low side and I suspect is a contributing factor. She is also still recovering from COVID. We are going to decrease metoprolol to 25 mg twice daily and continue her current Ross. I have asked her to hold the furosemide for the next week as well and we will reassess at her appointment for follow-up in mid January 2. Hypertension: Concerns as above. Will reassess with reduced therapy at follow-up appointment 3. Diabetes: We will update A1c today on current therapy 02/13/2024 Essential (primary) hypertension (ICD-10 - I10) 1. C. difficile diarrhea and E. coli diarrhea: Stressed the importance of completing her course of fidaxomicin to clear infection. We will consider rechecking a stool profile after she completes antibiotic therapy 2. Abdominal cramping: Will trial hyoscyamine to assist with cramping 3. Hypertension: Stable off losartan at this time. Will follow on amlodipine and metoprolol. She is to have repeat renal labs in 2 weeks 03/25/2024 Mixed hyperlipidemia (ICD-10 - E78.2) 1. Hypertension: Stable on present amlodipine and metoprolol. No changes made today 2. Diabetes: Stable on Ozempic 1 mg. She will be next due for an A1c in late April 3. Hyperlipidemia: Stable off therapy. No changes made today 4. Depression/anxiety : Satisfied with current buspirone 5. Meningioma: Had stable MRI at this time last year. She has no symptoms and would like to wait on repeat imaging at this time 6. Osteoarthritis of the right knee Awaiting orthopedic appointment at the end of the month. Will renew tramadol for nocturnal use in the meantime 7. Routine healthcare maintenance: She will book her mammogram at [facility]. Colonoscopy was done in 2021 and is next due in 2026. Fasting labs are up-to-date. She has had her vaccinations 07/14/2024 Right foot pain (ICD-10 - M79.671) 1. Hypertension: Well-controlled on present therapy. No changes made today 2. Osteoarthritis right knee: Has a second opinion with the [facility] doctor who does the procedure robotically. She intends to follow through on this later in the year 3. Diabetes: Needs an updated A1c in the lab today. She continues on Ozempic and is tolerating the current 1 mg dose 4. Right foot pain: Question tendinitis versus possible gout. She will check a uric acid level today and we will cover with a Medrol Dosepak. 10/01/2024 Traumatic injury of head, initial encounter (ICD-10 - S09.90XA) 1. Right foot pain: Need to await bone scan tomorrow to see if there is evidence of stress fracture. 2. Type 2 diabetes mellitus: Will bump Ozempic to the 2 mg dose given she is tolerating 1 mg well and sugars are inching higher 3. Hypertension: Stable on present therapy. No changes made today 4. Head trauma: Given pain since fall last night we will set up the urgent CT scan 03/25/2024 Persistent depressive disorder (ICD-10 - F34.1) 1. Hypertension: Stable on present amlodipine and metoprolol. No changes made today 2. Diabetes: Stable on Ozempic 1 mg. She will be next due for an A1c in late April 3. Hyperlipidemia: Stable off therapy. No changes made today 4. Depression/anxiety : Satisfied with current buspirone 5. Meningioma: Had stable MRI at this time last year. She has no symptoms and would like to wait on repeat imaging at this time 6. Osteoarthritis of the right knee Awaiting orthopedic appointment at the end of the month. Will renew tramadol for nocturnal use in the meantime 7. Routine healthcare maintenance: She will book her mammogram at [facility]. Colonoscopy was done in 2021 and is next due in 2026. Fasting labs are up-to-date. She has had her vaccinations 01/14/2024 Type 2 diabetes mellitus without complication, without long-term current use of insulin (ICD-10 - E11.9) 1. Lightheadedness/fa tigue: BP is on the low side and I suspect is a contributing factor. She is also still recovering from COVID. We are going to decrease metoprolol to 25 mg twice daily and continue her current Ross. I have asked her to hold the furosemide for the next week as well and we will reassess at her appointment for follow-up in mid January 2. Hypertension: Concerns as above. Will reassess with reduced therapy at follow-up appointment 3. Diabetes: We will update A1c today on current therapy 03/25/2024 Meningioma (ICD-10 - D32.9) 1. Hypertension: Stable on present amlodipine and metoprolol. No changes made today 2. Diabetes: Stable on Ozempic 1 mg. She will be next due for an A1c in late April 3. Hyperlipidemia: Stable off therapy. No changes made today 4. Depression/anxiety : Satisfied with current buspirone 5. Meningioma: Had stable MRI at this time last year. She has no symptoms and would like to wait on repeat imaging at this time 6. Osteoarthritis of the right knee Awaiting orthopedic appointment at the end of the month. Will renew tramadol for nocturnal use in the meantime 7. Routine healthcare maintenance: She will book her mammogram at [facility]. Colonoscopy was done in 2021 and is next due in 2026. Fasting labs are up-to-date. She has had her vaccinations 03/25/2024 Primary osteoarthritis of right knee (ICD-10 - M17.11) 1. Hypertension: Stable on present amlodipine and metoprolol. No changes made today 2. Diabetes: Stable on Ozempic 1 mg. She will be next due for an A1c in late April 3. Hyperlipidemia: Stable off therapy. No changes made today 4. Depression/anxiety : Satisfied with current buspirone 5. Meningioma: Had stable MRI at this time last year. She has no symptoms and would like to wait on repeat imaging at this time 6. Osteoarthritis of the right knee Awaiting orthopedic appointment at the end of the month. Will renew tramadol for nocturnal use in the meantime 7. Routine healthcare maintenance: She will book her mammogram at [facility]. Colonoscopy was done in 2021 and is next due in 2026. Fasting labs are up-to-date. She has had her vaccinations 03/25/2024 Encounter for general adult medical examination without abnormal findings (ICD-10 - Z00.00) 1. Hypertension: Stable on present amlodipine and metoprolol. No changes made today 2. Diabetes: Stable on Ozempic 1 mg. She will be next due for an A1c in late April 3. Hyperlipidemia: Stable off therapy. No changes made today 4. Depression/anxiety : Satisfied with current buspirone 5. Meningioma: Had stable MRI at this time last year. She has no symptoms and would like to wait on repeat imaging at this time 6. Osteoarthritis of the right knee Awaiting orthopedic appointment at the end of the month. Will renew tramadol for nocturnal use in the meantime 7. Routine healthcare maintenance: She will book her mammogram at [facility]. Colonoscopy was done in 2021 and is next due in 2026. Fasting labs are up-to-date. She has had her vaccinations PLAN OF TREATMENT Pending Test Test Name Order Date XR Chest 2 views 01/21/2024 regadenoson mibi 11/09/2023 Future Test Test Name Order Date FLUID DIFFERENTIAL 06/22/2014 GI Profile, Stool, [id number] 02/27/2024 GI Profile, Stool, [id number] 06/03/2024 GI Profile, Stool, [id number] 08/07/2024 Insurance Providers Payer Name Payer Address Payer Phone Subscriber Number Group Number Insured Name Patient Relationship to Insured Coverage Start Date Coverage End Date [employer] [address] [place] [address] [id number] RANGER BELGICA Self - patient is the insured 2005 MEDICAL (GENERAL) HISTORY Medical History History ICD Code tubular adenoma 02/19 family h/o colon polyps allergies mammagram=calcifications per pt diabetes diet controlled no meds family hx colon cancer PGM, father sleep apnea tubular adenoma 03/29/2011 (and hyperpla stic polyp) due 2016 cholecystectomy obesity CDiff Surgical History Surgery Date(Month/Year) cholecystectomy, laparoscopic 11/05/13 partial hysterectomy 1991 Hospitalization History Reason Date(Month/Year) as above [facility] Positive for COVID 12/16
--- OUTSIDE RECORDS SUMMARY | 2025-01-12 17:06 | XMS_ITS | Encounter Summary ---
Author Organization [facility] Address [address] [place] [id number] Phone Care Team Providers Care Bottomer Operator Name Role Phone Benji Salcedo MD Primary Care Provider [phone] Encounter Details Date Type Department Care Team ([facility] st Contact Info) Description 12/08/2024 Procedure Pass [facility] [address] [place] [address] Social History Tobacco Use Types Packs/Day Years Used Date Smoking Tobacco: Never Smokeless Tobacco: Never Alcohol Use Standard Drinks/Week Comments Not Currently [...] on filedocumented in this encounter Care Teams Bottomer Operator Relationship Specialty Start Date End Date Benji Salcedo MD [address] [place] [address] PCP - General Internal Medicine 11/04/24 documented as of this encounter Additional Source Comments The information contained in this document represents components of the legal health record. It is not the complete legal health record.[facility]
--- OUTSIDE RECORDS SUMMARY | 2025-01-12 17:06 | XMS_ITS | Clinical Summary ---
Author Organization [facility] Address [address] [place] [address] [address] [place] [address] Phone Care Team Providers Care Electronics Recycler Name Role Phone Benji Salcedo MD Primary Care Provider [phone] Allergies Active Allergy Reactions Criticality Noted Date [...] - PCV) 04/26/2007 04/26/2006 Influenza Vaccine (#1) 2024 01/24/2020 Pneumococcal Vaccine: Peds ( 0 to 5 Years) and At-Risk Patients (6 to 49 Years) Discontinued 04/26/2006 Hepatitis B Vaccine Aged Out No longe r eligible based on patient's age to complete this topic Insurance [facility] Care Teams Electronics Recycler Relationship Specialty Start Date End Date Benji Salcedo MD [address] [place] [id number] PCP - General 04/26/20
== END 2025-01-12 15:02 | disposition home or self-care (01) ==
LOC: HO.HMGCLDS 15:01
PROVIDERS: PCP Internal Medicine; Visit Provider Internal Medicine Nephrology
DX: I12.9 Hypertensive chronic kidney disease with stage 1 through stage 4 chronic kidney disease, or unspecified chronic kidney disease (principal); N18.31 Chronic kidney disease, stage 3a; E79.0 Hyperuricemia without signs of inflammatory arthritis and tophaceous disease
CPT/HCPCS: 36415; 80051; 82565; 84520; 84550

== ENCOUNTER 2025-01-27 14:38 | Outpatient (AMB) | payer BC, SELFPAY ==
--- OUTSIDE RECORDS SUMMARY | 2024-12-16 10:56 | XMS_ITS ---
Author Organization [facility] Address [address] [place], [place] [phone] Care Team Providers Care It Associate Name Role Phone HELENE QUEZADA Primary Care Provider [phone] REASON FOR VISIT Update for MD Encounters Encounter Location Date Provider Diagnosis [facility] [address] [place] [address] 12/16/2024 HELENE QUEZADA PLAN OF TREATMENT Next Appt Details Provider Name:HELENE QUEZADA , 04/17/2025 03:15:00 PM, [address] [place], [address],
--- OUTSIDE RECORDS SUMMARY | 2024-12-22 10:45 | XMS_ITS ---
Author Organization [facility] Address [address] [place], [place] [phone] Care Team Providers Care Shafting Cleaner Name Role Phone HELENE QUEZADA Primary Care Provider [phone] REASON FOR VISIT 41/ 1mo Encounters Encounter Location Date Provider Diagnosis [facility] [address] [place] [address] 12/22/2024 HELENE QUEZADA PLAN OF TREATMENT Next Appt Details Provider Name:HELENE QUEZADA , 04/17/2025 03:15:00 PM, [address] [place], [address],
--- OUTSIDE RECORDS SUMMARY | 2025-01-19 11:51 | XMS_ITS ---
Author Organization [facility] Address [address] [place], [place] [id number] Care Team Providers Care Comb Setter Name Role Phone HELENE QUEZADA Primary Care Provider [phone] REASON FOR VISIT (2) hospital yesterday Encounters Encounter Location Date Provider Diagnosis [facility] [address] [place] [address] 01/19/2025 HELENE QUEZADA PLAN OF TREATMENT Next Appt Details Provider Name:HELENE QUEZADA , 04/17/2025 03:15:00 PM, [address] [place], [address],
--- OUTSIDE RECORDS SUMMARY | 2025-01-20 10:15 | XMS_ITS ---
Author Organization [facility] Address [address] [place], [place] [id number] Care Team Providers Care Slurry Tank Operator Name Role Phone HELENE QUEZADA Primary [...] as directed for 90 days Active Nystatin 574243 UNIT/GM 1 application Ex ternally Twice a [...] chronic kidney disease (CKD) (N18.31) Active confirmed 212509027 VITAL SIGNS Height 62.5 in 01/20/2025 Weight 188.4 lbs 01/20/2025 Blood pressure systolic 124 mm Hg 01/21/20 25 Blood pressure diastolic 70 mm Hg 025 BMI 33.91 kg/m2 01/20/2025 Encounters Encounter Location Date Provider Diagnosis [facility] [address] [place] [address] 01/20/2025 [facility] Right flank pain R10.A1 ; Acute [...] R10.A1) 1. UTI: Review of culture from [facility] shows Klebsiella which is sensitive to [...] improved after cortisone injection with podiatry in [place]. Underlying degenerative arthritis appears to have been [...] improved after cortisone injection with podiatry in [place]. Underlying degenerative arthritis appears to have been the source of her symptoms. Will follow 5. Stage IIIa chronic kidney disease: Stable on current medical therapy. Knows to avoid NSAIDs. She has upcoming follow-up with Dr. Patton from nephrology 6. Type 2 diabetes mellitus: Improved on Ozempic. Will continue present dosing 01/20/2025 Gross hematuria (ICD-10 - R31.0) 1. UTI: Review of culture from [facility] shows Klebsiella which is sensitive to her current Macrodantin. Will continue same 2. Right flank pain with gross hematuria: Question underlying stone as a source of infection. Will check a CT with renal stone protocol. Further recommendations pending results 3. Hypertension: Stable on current amlodipine/olmesar wood and metoprolol. Will continue same 4. Right foot pain: Finally improved after cortisone injection with podiatry in [place]. Underlying degenerative arthritis appears to have been [...] improved after cortisone injection with podiatry in [place]. Underlying degenerative arthritis appears to have been [...] 1. UTI: Review of culture from [facility] shows Klebsiella which is sensitive to her current Macrodantin. Will continue same 2. Right flank pain with gross hematuria: Question underlying stone as a source of infection. Will check a CT with renal stone protocol. Further recommendations pending results 3. Hypertension: Stable on current amlodipine/olmesar wood and metoprolol. Will continue same 4. Right foot pain: Finally improved after cortisone injection with podiatry in [place]. Underlying degenerative arthritis appears to have been [...] improved after cortisone injection with podiatry in [place]. Underlying degenerative arthritis appears to have been [...] improved after cortisone injection with podiatry in [place]. Underlying degenerative arthritis appears to have been [...] Provider Name:HELENE SANDOVALFORD , 04/17/2025 03:15:00 PM, [address] [place] [address], [phone], Progress Notes * Examination Category Sub-Category Detail [...] Category Not es General Patient went to [facility] Sunday - with hematuria - wasd dx with URI and started on macrodantin. She reports hematuria stopped but still has pelvic pressure and right flank pain. No fever or chills. Did not have CT scan in ED. Has had some chills.
--- OUTSIDE RECORDS SUMMARY | 2025-01-26 08:27 | XMS_ITS ---
Author Organization [facility] Address [address] [place], [place] [id number] Care Team Providers Care Cooker Sulfate Name Role Phone HELENE QUEZADA Primary Care Provider [phone] REASON FOR VISIT (FYI) CT Scan Encounters Encounter Location Date Provider Diagnosis [facility] [address] [place] [address] 01/26/2025 HELENE QUEZADA PLAN OF TREATMENT Next Appt Details Provider Name:HELENE QUEZADA , 04/17/2025 03:15:00 PM, [address] [place], [phone],
--- NOTE | 2025-01-27 14:52 | HO.NEPHOV_ITS ---
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 Required: No Accompanied by: Self / Same As Patient Allergies Iodinated Contrast Media (IV CONTRAST) Allergy (Severe, Verified 01/27/25 14:54) SEIZURE vancomycin (VANCOMYCIN) Allergy (Severe, Verified 01/27/25 14:54) ITCHING, SOB doxycycline (DOXYCYCLINE) Allergy (Intermediate, Verified 01/27/25 14:54) DIFFICULTY SWALLOWING Penicillins (PENICILLINS) Allergy (Intermediate, Verified 01/27/25 14:54) RASH cephalexin (From KEFLEX) Allergy (Unknown, Verified 01/27/25 14:54) RASH Sulfa (Sulfonamide Antibiotics) (SULFA (SULFONAMIDE ANTIBIOTICS)) Allergy (Unknown, Verified 01/27/25 14:54) UNKNOWN HPI Comments Details: Belgica was seen in the office in follow-up for chronic kidney disease and hypertension. She takes her Lasix only as needed basis. Her past renal ultrasound showed cortical thinning on the left. She has a diagnosis of obstructive sleep apnea and does not use CPAP. She takes a nonsteroidal anti- inflammatory medications as needed basis. Her uric acid has been high and had gout. She is not taking Allopurinol now. She recently was seen in [facility] ER for UTI. She also had CT scan to R/O renal stone. She has been taking Olmesartan while having UTI . Her last serum creatinine was 1.4. She has lost weight on Ozempic. [facility] Medical History GINA (obstructive sleep apnea) Gout On beta kamar at home Chronic headaches Splenic artery aneurysm Meningioma HTN (hypertension) Surgical History Hx laparoscopic cholecystectomy (~2013) History of hysterectomy History of History of colonoscopy (~08/2018) Family History Father Family hx of colon cancer Mother Hx of breast cancer Paternal Grandmother Colon cancer Social History Household Members: None Housing: House Alcohol intake: never Patient Tobacco Use Status: Never used Tobacco e-Cigarette/Vaping Use: Never Used service: No Cognitive needs: No Hearing needs: No Vision needs: No Review of Systems Const All systems reviewed & are unremarkable except as noted in HPI and below Physical Exam Vital Signs: Last Vital Signs Pulse 75 01/27/25 14:54 BP 110/70 01/27/25 14:54 Pulse Ox 98 01/27/25 14:54 Oxygen Delivery Method Room Air 01/27/25 14:54 BMI result Body Mass Index 32.3 Const General: comfortable and no acute distress Orientation/consciousness: patient oriented x3 HEENT Head: Yes normocephalic Mouth: Normal oral and palatal mucosa present Eyes EOM: EOMs intact bilaterally Neck Neck: Yes supple Resp Auscultation: clear to auscultation bilaterally Cardio Jugular venous distension: no JVD Rate: regular rate GI Palpation (GI): Soft to palpation Auscultation: normal bowel sounds General: Yes no CVA tenderness Back/Spine/Pelvis Back: no CVA tenderness Skin General skin exam: no rashes or lesions noted Neuro General: patient oriented x3 and moves all extremities Extrem General: Yes no pedal edema Results Reviewed Nephrology Results: Hgb, (12.0-16.0) 13.5 g/dl 10/28/24 WBC, (4.8-10.8) 11.7 X10*3/uL H 10/28/24 Plt Count, (160-400) 292 X10*3/uL Δ 10/28/24 Sodium, (135-145) 144 mmol/L 01/12/25 Potassium, (3.3-5.1) 4.1 mmol/L 01/12/25 Chloride, (96-108) 113 mmol/L H 01/12/25 Carbon Dioxide, (22-29) 24 mmol/L 01/12/25 BUN, (9-16) 29 mg/dL H 01/12/25 Creatinine, (0.5-1.4) 1.36 mg/dL 01/12/25 Calcium, (8.4-10.2) 9.8 mg/dL 10/28/24 Renal US 07/06/20 Assessment & Plan Assessment & Plan (1) CKD (chronic kidney disease) stage 3, GFR 30-59 ml/min: Code(s): N18.30 - Chronic kidney disease, stage 3 unspecified Category: Medical Qualifiers: Chronic kidney disease stage 3 subtype: stage 3a (GFR 45-59) Qualified Code(s): N18.31 - Chronic kidney disease, stage 3a Plan Belgica has CKD due to vascular disease. Her renal function had been stable but her serum creatinine has gone up marginally when she took olmesartan while having UTI . She is diabetic and hypertensive. She is not known to have significant proteinuria.She likely has mild renal artery stenosis on the left given cortical thinning on that side. Her BP is at goal .She takes Lasix as needed . I ordered repeat urine culture today. I will consider doing a split function study of her kidney in the future. All questions answered Orders: Orders Urine Culture Today R30.0 - Dysuria Electrolytes 4 Months I10 - Essential (primary) hypertension, N18.31 - Chronic kidney disease, stage 3a Blood Urea Nitrogen 4 Months I10 - Essential (primary) hypertension, N18.31 - Chronic kidney disease, stage 3a Creatinine 4 Months I10 - Essential (primary) hypertension, N18.31 - Chronic kidney disease, stage 3a Coding Level of Care Code Est Pt Level 4 (83894) Diagnoses Stage 3a chronic kidney disease N18.31 Chronic kidney disease stage 3 subtype: stage 3a (GFR 45-59)
[2025-01-27 14:54] VITALS: BP 110/70; PULSE 75; O2SAT 98; BMI 32.3
--- OUTSIDE RECORDS SUMMARY | 2025-01-27 17:30 | XMS_ITS | Clinical Summary ---
Author Organization [facility] Address [address] [place] [address] Phone Care Team Providers Care Underpresser Hand Name Role Phone Benji Salcedo MD Primary Care Provider Surgical History Surgery Date Site/Laterality Comments SECTION [...] Breast Cancer Screening 1955 Colorectal Cancer Screening: Colonoscopy 1954 Diabetes: Annual GFR (Glomerular Filtration Rate) 1954 Diabetes: Annual Foot Exam 1964 Diabetes: Annual Retina Eye Exam 1964 Zoster Vaccines (2 of 2) 03/20/2020 01/24/2020 Depression Screening 04/16/2024 Cholesterol Screening (Lipid Panel) 10/08/2024 Falls Risk Assessment 10/08/2024 Hepatitis C Screening 10/08/2024 Osteoporosis Screening (Bone Density Screening) 10/08/2024 Social Influencers of Health Screening 10/08/2024 Hypertension/CHF/CAD Annual BMP Blood Test 10/10/2024 COVID-19 Vaccine ( season) 2024 04/29/2021, 08/23/2020, 08/02/2020 Influenza Vaccine (#1) 2024 4, 01/16/2023, 01/10/2022, Additional history exists Diabetes: Annual Urine Albumin-Creatinine Ratio (uACR) 01/22/2025 Diabetes: Blood Sugar Control Test (HGBA1C) 01/22/2025 RSV Immunization Adult Patients (1 - 1-dose [...] complete this topic Insurance MEDICARE Care Teams Underpresser Hand Relationship Specialty Start Date End Date Benji Salcedo MD PCP - General Internal Medicine 04/02/08
--- OUTSIDE RECORDS SUMMARY | 2025-01-27 17:30 | XMS_ITS | Patient Health Record ---
Author Organization [place] [facility] Address [address], [place] [address] Care Team Providers Care Coverstitch Machine Operator Name Role Phone PILAR HELENE Primary Care Provider MARY LEWIS Unavailable [phone] ALLERGIES Allergen (clinical drug ingredient) Drug/Non Drug [...] REASON FOR REFERRAL Reason (2)New patient Appt [facility] Orthopedics Diagnosis 1 Primary osteoarthrit is of right knee (M17.11) Referral Organization [facility] mosher Referring Provider First [...] Foot pain, left (M79 .672) Referral Organization [facility] vidhi Referring Provider First Name HELENE Referring Provider Last Name PILAR Referring Provider Speciality Internal M edicine Referred Provider Specialty Physical [facility] Referral Priority Routine Reason (faed thru EMR 5) New patient appt [facility] [employer] Safety Program Coordinator, [address] [place] [address] fax: [phone]. please send MRI Diagnosis 1 Tendinitis of right foot (M77.51) Referral Organization [facility] Referring Provider First Name HELENE Referring Provider Last Name PILAR Referring Provider Speciality Internal M edicine Referred Provider Specialty Orthopedic S urgery General Notes Evita RAMIREZsundar Sandoval STILL CLEANER 04/2024 02:28:47 PM >Per patient [place] has [...] 30 days Active Metoprolol Tartrate 50 MG 1 tablet with food Orally Twice a day Active amLODIPine-Olmesartan 10-20 MG 1 tablet Orally Once a day Active Ozempic (2 MG/DOSE) 8 MG/3ML as directed Subcutaneous every 7 days 10/01/2024 Active Acetaminophen-Codeine 300-30 MG TAKE 1 TABLET NEEDED BY MOUTH 3 TIMES A DAY FOR 7 DAYS for 7 12/10/2024 Active Allopurinol 100 MG 1 tablet Orally Once a day Not-Taking FreeStyle Ladonna 3 Sensor - as directed applied to skin as directed for 90 days Active Nystatin 827327 UNIT/GM 1 application Ex ternally Twice a day for 30 day(s) 06/13/2023 Active IMMUNIZATIONS Vaccine Route Administration Date Status Comme [...] Code Notes Problem Cough (R05) Active confirmed 32998753 Problem Obstructive sleep apnea (G47.33) Active confirmed 99098827 Problem GERD without esophagitis (K21.9) Active confirmed 117515462 Problem Mixed hyperlipidemia (E78.2) Active confirmed 958939516 Problem Anxiety (F41.9) Active confirmed 490874 02 Problem Primary osteoarthritis of both knees (M17.0) Active confirmed 728271167 Problem Primary osteoarthritis of right knee (M17.11) Active confirmed 446821772238478 Problem Constipation, unspecified constipation type (K59.00) Active confirmed 02367433 Problem Gouty arthritis (M10.9) Active confirmed 65459218 Problem Acute idiopathic gout of right foot (M10.071) Active confirmed 44511456 Problem Bronchitis with bronchospasm (J20.9) Active confirmed 65781819 Problem Meningioma (D32.9) Active confirmed 061180064 Problem Leukocytosis, unspecified type (D72.829) Active confirmed 645291956 Problem Type 2 diabetes mellitus with hyperglycemia, without long-term current use of insulin (E11.65) Active confirmed Hyperglycem ia due to type 2 diabetes mellitus (150401483658901) Problem Type 2 diabetes mellitus without complication, without long-term current use of insulin (E11.9) Active confirmed Type II diab etes mellitus without complication (328777819) Problem Stage 3a chronic kidney disease (CKD) (N18.31) Active confirmed 814182838 Problem Persistent depressive disorder (F34.1) Active confirmed 8625321310 Problem Stasis dermatitis (I87.2) Active confirmed 69595966 Problem Other fatigue (R53.83) 04/12/20 Active confirmed Fatigue (59902820) Problem Essential (primary) hypertension (I10) 04/12/20 Active confirmed Essential hypertension (46821800) Problem Dorsalgia, unspecified (M54.9) 04/12/20 Active confirmed Backache (302813124) VITAL SIGNS Blood pressure diastolic 70 mm Hg 01/20/2025 Height 62.5 in 01/20/2025 Blood pressure systolic 124 mm Hg 01/20/2025 Weight 188.4 lbs 01/20/2025 BMI 33.91 kg/m2 01/20/2025 Encounters Encounter Location Date Provider Diagnosis [address] [address] 01/28/[address] [address] 02/04/[address] [address] 02/04/[address] [address] 02/04/2024 HELENE SANDOVALFORD Gastroenteritis K52. 9 and Essential (primary) hypertension I10 [address] [address] 02/06/[address] [address] 02/06/2024 [place] [id number] 02/10/2024 MARY LAZOACCO [address] [address] 02/13/[address] [address] 02/13/2024 HELENE [place]TIM[place] C. difficile diarrhe a A04.72 ; Abdominal cramping R10.9 and Essential (primary) hypertension I10 [address] [address] 02/15/[address] [address] 02/21/[address] [address] 02/27/2024 HELENE [place] Acute diarrhea R19.[address] [address] 02/29/2024 HELENE SANDOVALFORD Type 2 diabetes mellitus without complication, without long-term current use of insulin E11.[address] [address] 03/05/2024 [facility] Acute diarrhea R19.7 [facility] [address] [place] [address] 03/05/2024 [facility] [address] [place] [address] 03/06/2024 HELENE [place] Essential (primary) hypertension I10 and Mixed hyperlipidemia E78.2 [facility] [address] [place] [address] 03/10/2024 [facility] [address] [place] [address] 03/11/[address] [address] 03/11/2024 HELENE [place] Left leg cellulitis L03.116 ; Essential (primary) hypertension I10 and Primary osteoarthritis of right knee M17.[address] [address] 03/12/[address] [address] 03/25/2024 [facility] Essential (primary) hypertension I10 ; Type 2 diabetes mellitus with hyperglycemia, without long-term current use of insulin E11.65 ; Mixed hyperlipidemia E78.2 ; Persistent depressive disorder F34.1 ; Meningioma D32.9 ; Primary osteoarthritis of right knee M17.11 and Encounter for general adult medical examination without abnormal findings Z00.[address] [address] 03/28/2024 [facility] Acute diarrhea R19.7 [facility] [address] [place] [address] 04/03/[address] [address] 04/03/[address] [address] 04/15/2024 [facility] Acute diarrhea R19.7 [facility] [address] [address] 04/30/[address] [address] 04/30/2024 HELENE [place]TIM[place] Primary osteoarthritis of right knee M17.11 [facility] [address] [place] [address] 05/02/2024 [facility] [address] [place] [address] 05/07/2024 [facility] [address] [place] [address] 05/09/2024 [facility] [address] [place] [address] 05/09/2024 [facility] Acute diarrhea R19.7 [facility] [address] [place] [address] 05/12/2024 [facility] [address] [place] [address] 05/14/2024 [facility] [address] [place] [address] 05/14/2024 [facility] [address] [place] [address] 05/16/2024 [facility] [address] [place] [address] 05/22/2024 [facility] [address] [place] [address] 2024 [facility] [address] [place] [address] 05/29/2024 [facility] [address] [place] [address] 06/03/2024 [facility] Acute diarrhea R19.7 [facility] [address] [place] [address] 06/03/2024 [facility] [address] [place] [address] 06/16/2024 [facility] [address] [place] [address] 06/30/2024 [facility] [address] [place] [address] 07/07/2024 [facility] [address] [place] [address] 07/11/2024 [facility] [address] [place] [address] 07/11/2024 [facility] [address] [place] [address] 07/14/2024 HELENE QUEZADA Essential (primary) hypertension I10 ; Primary osteoarthritis of right knee M17.11 ; Type 2 diabetes mellitus without complication, without long-term current use of insulin E11.9 and Right foot pain M79.671 [facility] [address] [place] [address] 07/15/2024 [facility] [address] [place] [address] 07/18/2024 [facility] Right foot pain M79.671 [facility] [address] [place] [address] 07/25/2024 [facility] Right foot pain M79.671 [facility] [address] [place] [address] 08/04/2024 [facility] [address] [place] [address] 08/04/2024 [facility] [address] [place] [address] 08/07/2024 HELENE QUEZADA Essential (primary) hypertension I10 ; Abdominal cramping R10.9 and Foot pain, left M79.672 [facility] [address] [place] [address] 08/11/2024 [facility] [address] [place] [address] 08/14/2024 [facility] [address] [place] [address] 08/20/2024 [facility] [address] [place] [address] 08/21/2024 HELENE QUEZADA Acute idiopathic gou t of right foot M10.071 [facility] [address] [place] [address] 08/25/2024 [facility] [address] [place] [address] 09/03/2024 [facility] [address] [place] [address] 09/09/2024 [facility] [address] [place] [address] 09/11/2024 [facility] [address] [place] [address] 09/15/2024 [facility] Right foot pain M79.671 ; Essential (primary) hypertension I10 and Gouty arthritis M10.9 [facility] [address] [place] [address] 09/17/2024 [facility] [address] [place] [address] 09/17/[address] [address] 09/17/2024 [facility] Cellulitis of hand L03.119 [facility] [address] [address] 09/23/2024 [facility] [address] [address] 10/01/[address] [address] 10/01/2024 [facility] Type 2 diabetes mellitus with hyperglycemia, without long-term current use of insulin E11.65 ; Right foot pain M79.671 ; Essential (primary) hypertension I10 and Traumatic injury of head, initial encounter S09.90XA [address] [address] 10/02/2024 [facility] Right foot pain M79.671 [facility] [address] [place] [address] 10/03/2024 [facility] [address] [place] [address] 10/03/[address] [address] 10/03/2024 [facility] [address] [address] 10/07/2024 [facility] [address] [address] 10/07/[address] [place] [address] 10/10/2024 [facility] Tendinitis of right foot M77.51 [facility] [address] [place] [address] 10/15/2024 [facility] [address] [place] [address] 10/23/2024 [facility] Type 2 diabetes mellitus without complication, without long-term current use of insulin E11.9 and Gouty arthritis M10.9 [facility] [address] [place] [address] 11/03/2024 [facility] [address] [place] [address] 11/12/2024 [facility] [address] [address] 11/13/2024 [facility] [address] [address] 11/18/2024 [facility] Right foot pain M79.671 ; Essential (primary) hypertension I10 and Type 2 diabetes mellitus without complication, without long-term current use of insulin E11.9 [facility] [address] [place] [address] 11/18/2024 [facility] Right foot pain M79.671 [facility] [address] [address] 11/19/2024 [facility] [address] [place] [address] 12/16/2024 [facility] [address] [address] 12/22/2024 [facility] [address] [address] 01/19/[address] [address] 01/20/2025 [facility] Right flank pain R10.A1 ; Acute UTI (urinary tract infection) N39.0 ; Gross hematuria R31.0 ; Essential (primary) hypertension I10 ; Right foot pain M79.671 ; Stage 3a chronic kidney disease (CKD) N18.31 and Type 2 diabetes mellitus without complication, without long-term current use of insulin E11.9 [facility] [address] [place] [address] 01/26/2025 [facility] Encounter Date Diagnosis Assessment Notes Treatment Notes Treatment Clinical Notes Section Notes 03/25/2024 Essential (primary) hypertension (ICD-10 - I10) [...] maintenance: She will book her mammogram at [facility]. Colonoscopy was done in 2021 and is [...] maintenance: She will book her mammogram at [facility]. Colonoscopy was done in 2021 and is [...] - M17.11) 1. Right knee osteoarthritis: Reportedly [id number] and end-stage. Current orthopedic appointment in [place] is not until August and patient does not wish to wait this long. She requests referral to [facility]. We will trial cautious Tylenol with codeine [...] knee: Has a second opinion with the [place] doctor who does the procedure robotically. She [...] knee: Has a second opinion with the [place] doctor who does the procedure robotically. She [...] 11/18/2024 Right foot pain (ICD-10 - M79.671) 01/20/2025 Acute UTI (urinary tract infection) (ICD-10 - N39.0) 1. UTI: Review of culture from [facility] shows Klebsiella which is sensitive to her current Macrodantin. Will continue same 2. Right flank pain with gross hematuria: Question underlying stone as a source of infection. Will check a CT with renal stone protocol. Further recommendations pending results 3. Hypertension: Stable on current amlodipine/olmesar wood and metoprolol. Will continue same 4. Right foot pain: Finally improved after cortisone injection with podiatry in [place]. Underlying degenerative arthritis appears to have been the source of her symptoms. Will follow 5. Stage IIIa chronic kidney disease: Stable on current medical therapy. Knows to avoid NSAIDs. She has upcoming follow-up with Dr. Patton from nephrology 6. Type 2 diabetes mellitus: Improved on Ozempic. Will continue present dosing 01/20/2025 Right flank pain (ICD-10 - R10.A1) 1. UTI: Review of culture from [facility] shows Klebsiella which is sensitive to [...] improved after cortisone injection with podiatry in [place]. Underlying degenerative arthritis appears to have been the source of her symptoms. Will follow 5. Stage IIIa chronic kidney disease: Stable on current medical therapy. Knows to avoid NSAIDs. She has upcoming follow-up with Dr. Patton from nephrology 6. Type 2 diabetes mellitus: Improved on Ozempic. Will continue present dosing 03/25/2024 Mixed hyperlipidemia (ICD-10 - E78.2) 1. [...] maintenance: She will book her mammogram at [facility]. Colonoscopy was done in 2021 and is next due in 2026. Fasting labs are up-to-date. She has had her vaccinations 01/20/2025 Gross hematuria (ICD-10 - R31.0) 1. UTI: Review of culture from [facility] shows Klebsiella which is sensitive to [...] improved after cortisone injection with podiatry in [place]. Underlying degenerative arthritis appears to have been the source of her symptoms. Will follow 5. Stage IIIa chronic kidney disease: Stable on current medical therapy. Knows to avoid NSAIDs. She has upcoming follow-up with Dr. Patton from nephrology 6. Type 2 diabetes mellitus: Improved on Ozempic. Will continue present dosing 02/13/2024 Essential (primary) hypertension (ICD-10 - I10) [...] have repeat renal labs in 2 weeks 11/18/2024 Type 2 diabetes mellitus without complication, [...] Follow on current regimen of nutritional control 03/11/2024 Primary osteoarthritis of right knee (ICD-10 [...] kidney disease and Tylenol has been ineffective 07/14/2024 Type 2 diabetes mellitus without complication, without long-term current use of insulin (ICD-10 - E11.9) 1. Hypertension: Well-controlled on present therapy. No changes made today 2. Osteoarthritis right knee: Has a second opinion with the [place] doctor who does the procedure robotically. She [...] we will cover with a Medrol Dosepak. 08/07/2024 Foot pain, left (ICD-10 - M79.672) [...] gave her a referral for PT today 09/15/2024 Gouty arthritis (ICD-10 - M10.9) 1. [...] on present therapy. No changes made today 10/01/2024 Essential (primary) hypertension (ICD-10 - I10) [...] will set up the urgent CT scan 01/20/2025 Essential (primary) hypertension (ICD-10 - I10) 1. UTI: Review of culture from [facility] shows Klebsiella which is sensitive to [...] improved after cortisone injection with podiatry in [place]. Underlying degenerative arthritis appears to have been the source of her symptoms. Will follow 5. Stage IIIa chronic kidney disease: Stable on current medical therapy. Knows to avoid NSAIDs. She has upcoming follow-up with Dr. Patton from nephrology 6. Type 2 diabetes mellitus: Improved on Ozempic. Will continue present dosing 10/01/2024 Traumatic injury of head, initial encounter [...] will set up the urgent CT scan 07/14/2024 Right foot pain (ICD-10 - M79.671) 1. Hypertension: Well-controlled on present therapy. No changes made today 2. Osteoarthritis right knee: Has a second opinion with the [place] doctor who does the procedure robotically. She [...] we will cover with a Medrol Dosepak. 03/25/2024 Persistent depressive disorder (ICD-10 - F34.1) [...] maintenance: She will book her mammogram at [facility]. Colonoscopy was done in 2021 and is next due in 2026. Fasting labs are up-to-date. She has had her vaccinations 01/20/2025 Right foot pain (ICD-10 - M79.671) 1. UTI: Review of culture from [facility] shows Klebsiella which is sensitive to [...] improved after cortisone injection with podiatry in [place]. Underlying degenerative arthritis appears to have been the source of her symptoms. Will follow 5. Stage IIIa chronic kidney disease: Stable on current medical therapy. Knows to avoid NSAIDs. She has upcoming follow-up with Dr. Patton from nephrology 6. Type 2 diabetes mellitus: Improved on Ozempic. Will continue present dosing 03/25/2024 Meningioma (ICD-10 - D32.9) 1. Hypertension: [...] maintenance: She will book her mammogram at [facility]. Colonoscopy was done in 2021 and is next due in 2026. Fasting labs are up-to-date. She has had her vaccinations 01/20/2025 Stage 3a chronic kidney disease (CKD) (ICD-10 - N18.31) 1. UTI: Review of culture from [facility] shows Klebsiella which is sensitive to [...] improved after cortisone injection with podiatry in [place]. Underlying degenerative arthritis appears to have been the source of her symptoms. Will follow 5. Stage IIIa chronic kidney disease: Stable on current medical therapy. Knows to avoid NSAIDs. She has upcoming follow-up with Dr. Patton from nephrology 6. Type 2 diabetes mellitus: Improved on Ozempic. Will continue present dosing 03/25/2024 Primary osteoarthritis of right knee (ICD-10 [...] maintenance: She will book her mammogram at [facility]. Colonoscopy was done in 2021 and is [...] maintenance: She will book her mammogram at [facility]. Colonoscopy was done in 2021 and is next due in 2026. Fasting labs are up-to-date. She has had her vaccinations 01/20/2025 Type 2 diabetes mellitus without complication, without long-term current use of insulin (ICD-10 - E11.9) 1. UTI: Review of culture from [facility] shows Klebsiella which is sensitive to [...] improved after cortisone injection with podiatry in [place]. Underlying degenerative arthritis appears to have been the source of her symptoms. Will follow 5. Stage IIIa chronic kidney disease: Stable on current medical therapy. Knows to avoid NSAIDs. She has upcoming follow-up with Dr. Patton from nephrology 6. Type 2 diabetes mellitus: Improved on Ozempic. Will continue present dosing PLAN OF TREATMENT Pending Test Test Name Order Date XR Chest 2 views 01/21/2024 regadenoson mibi 11/09/2023 Future Test Test Name Order Date FLUID DIFFERENTIAL 06/22/2014 GI Profile, Stool, [id number] 02/27/2024 GI Profile, Stool, [id number] 06/03/2024 GI Profile, Stool, [id number] 08/07/2024 Next Appt Details Provider Name:HELENE SANDOVALFORD , 04/17/2025 03:15:00 PM, [address] [place], [address], Insurance Providers Payer Name Payer Address Payer Phone Subscriber Number Group Number Insured Name Patient Relationship to Insured Coverage Start Date Coverage End Date [employer] [address] [place] [phone] [id number] RANGERBELGICA Self - patient is the insured 2005 [...] partial hysterectomy 1991 Hospitalization History Reason Date(Month/Year) Farzad MULLEN [place]- Abdominal pain, b lood in urine 01/18/25 [facility] Positive for COVID 12/16 as above
--- OUTSIDE RECORDS SUMMARY | 2025-01-27 17:30 | XMS_ITS | Clinical Summary ---
Author Organization [facility] Address [address] [place] [address] Care Team Providers Care Punch Operator Name Role Phone Benji Salcedo MD [...] age to complete this topic Care Teams Punch Operator Relationship Specialty Start Date End Date Benji Salcedo MD PCP - General Internal Medicine 09/10/14
--- OUTSIDE RECORDS SUMMARY | 2025-01-27 17:30 | XMS_ITS | Clinical Summary ---
Author Organization [facility] Address [address] [address] Phone Care Team Providers Care Vine Fruit Farming Supervisor Name Role Phone Benji Salcedo MD Primary Care Provider [phone] Allergies Active Allergy Reactions Criticality Noted Date Comments Catrachito Inhibitors Other (See Comments) 07/21/2020 Cephalexin Other (See Comments),Swelling 07/21/2020 Clindamycin 07/21/2020 Doxycycline Other (See Comments) 07/21/2020 Ibuprofen 07/13/2021 Iodinated Contrast Media 05/30/2024 Latex 07/21/2020 Penicillins Other (See Comments),Rash Low 07/21/2020 Other Reaction(s): Not available, Other (See Comments) Sulfa (Sulfonamide Antibiotics) Other (See Comments) 07/21/2020 Vancomycin Anaphylaxis High 07/21/2020 Other Reaction(s): Not available Medications amLODIPine-olmesa rtan (VANITA) 10-20 mg per tablet Take 1 tablet by mouth daily. Active busPIRone (BUSPAR) 10 MG tablet Take 1 tablet by mouth 2 (two) times a day. Active furosemide (LASIX) 20 MG tablet 025 Active metoprolol tartrate (LOPRESSOR) 50 MG tablet Take 1 tablet by mouth 2 (two) times a day with meals. Active ondansetron (ZOFRAN-ODT) 4 MG disintegrating tablet TAKE 1 TABLET BY MOUTH 2 TIMES DAILY NEEDED FOR NAUSEA/VOMITING Active OZEMPIC 1 mg/dose (4 mg/3 mL) subcutaneous injection pen 024 Active traMADoL (ULTRAM) 50 mg tablet Active triamcinolone acetonide 0.1 % cream triamcinolone acetonide 0.1 % topical cream APPLY BY TOPICAL ROUTE EVERY DAY A THIN FILM TO THE AFFECTED SKIN AREAS Active predniSONE (DELTASONE) 10 MG tablet Active allopurinol (ZYLOPRIM) 100 MG tablet Take 200 mg by mouth daily. Active acetaminophen with codeine (ACETAMINOPHEN-CO DEINE) 120-12 mg/5 mL Soln Take by mouth. Ac tive nitrofurantoin macrocrystaL (MACRODANTIN) 100 MG capsule Take 1 capsule (100 mg total) by mouth 2 (two) times a day for 7 days. 14 capsule 025 2024 Discontinued nitrofurantoin macrocrystaL (MACRODANTIN) 100 MG capsule Take 1 capsule (100 mg total) by mouth 2 (two) times a day for 7 days. 14 capsule 025 2024 Active Problems Problem Noted Date Diagnosed Date Osteoarthritis of ankle and foot 11/13/2024 Peroneal tendinitis of right lower extremity Encounters Date Type Department Care Team Description 01/18/2025 5:11 PM EDT - 01/18/2025 8:40 PM EDT Emergency [facility] [address] [place] [address] Hiral Wilcox MD Discharge Disposition: Home or Self Care 01/15/2025 Telephone [facility] Orthopedics & Sports Medicine [address] [place] [address] Thais Sesay RN GELSYN3 [facility] 12/08/2024 1:00 PM EDT - 12/08/2024 1:53 PM EDT Surgery [facility] Cardiovascular And Interventional Radiology [address] [place] [address] Bridgett Garcia PA-C Joint Aspiration with Fluoroscopy Guidance 12/08/2024 12:52 PM EDT - 12/08/2024 2:14 PM EDT Hospital Encounter [facility] Cardiovascular And Interventional Radiology [address] [place] [address] Alonzo Garza MD Discharge Disposition: Home or Self Care 12/08/2024 Procedure Pass [facility] Cardiovascular And Interventional Radiology [address] [place] [address] 11/13/2024 1:00 PM EDT Office Visit [facility] Orthopedics & Sports Medicine [address] [place] [address] Jules Erickson MD Osteoarthritis of ankle and foot, unspecified laterality (Primary Dx); Peroneal tendinitis of right lower extremity 11/05/2024 8:45 AM EDT Telemedicine [facility] Orthopedics at [place] [address] [facility] [address] [place] [address] Lam Grimes MD Primary osteoarthritis of left knee (Primary Dx); Primary osteoarthritis of right knee 11/05/2024 Orders Only [facility] Orthopedics & Sports Medicine [address] [place] [address] Shalom Yusuf MA Right foot pain (Primary Dx) 11/04/2024 Telephone [facility] Department of Orthopaedics [address] [place] [address] Lam Grimes MD 11/03/2024 Ancillary Orders [facility],Outside Imaging [address] [place] [address] Unknown, MD Larry from Last 3 Months Social History Tobacco [...] on file 08/11/2022 No 08/11/2022 No 08/11/2022 Food Answer Date Recorded Within the past 6 months we worried whether our food would run out before we got money to buy more. Never True 01/18/2025 Within the past 6 months the food we bought just didn't last and we didn't have enough money to get more. Never True Residential Stability Answer Date Recor ded What is your housing situation today? I have dayron merrill 01/18/2025 How many times have you move d in the past 12 months? Zero (I did not move) 01/18/2025 Paying for Meds Answer Date Recorded Do you have trouble paying for medicines? No 01/18/2025 Paying Utility Bills Answer Date Record ed Do you have trouble paying your heating or elect ricity bill? No 01/18/2025 Transportation Answer Date Recorded Has the lack of transportati on kept you from medical appointments or from getting medications? No 01/18/2025 Digital Access Answer Date Recorded No 01/18/2025 Yes 01/18/2025 Do you have reliable internet access at home? Ye s 01/18/2025 Do you have a device (e.g., phone, tablet, computer) with a working camera? Yes 01/18/2025 Intimate Partner Violence Answer Date R ecorded Are you denied basic needs s uch as food, clothing, or medical care? No 01/18/2025 In the past 12 months have y ou been in a relationship with a person who hurts, threatens, or tries to control you? No 01/18/2025 Are you denied basic needs s uch as food, clothing, or medical care? No 01/18/2025 In the past 12 months have y ou been in a relationship with a person who hurts, threatens, or tries to control you? No 01/18/2025 Comments No Sex and Gender Information Value Date Recorded Sex Assigned at Female 12/29/2021 10:36 AM EDT Legal Sex Female 11:26 AM EDT Gender Identity Female 12/29/2021 10:36 AM EDT Sexual Orientation Straight 12/29/2021 10 :36 AM EDT Last Filed Vital Signs Vital Sign Reading Time Taken Comments Blood Pressure 117/72 01/18/2025 7:51 PM EDT Pulse 67 01/18/2025 7:51 PM EDT Temperature 35.9 C (96.6 F) 01/18/2025 7:51 PM EDT Respiratory Rate 16 01/18/2025 7:51 PM EDT Oxygen Saturation 100% 01/18/2025 7:51 PM EDT Inhaled Oxygen Concentration - - Weight 83.9 kg (185 lb) 01/18/2025 4:58 PM EDT Height 162.6 cm (5' 4 ) 01/18/2025 4:58 PM EDT Body Mass Index 31.76 01/18/2025 4:58 PM EDT Plan of Treatment Health Maintenance Due Date Last Done Comments LIPID PANEL 1954 DEPRESSION SCREENING 1966 HEPATITIS C SCREENING 1972 MAMMOGRAM 1994 COLOGUARD 1999 COLONOSCOPY 1999 COLORECTAL CANCER SCREENING 1999 FIT TEST 1999 FOBT 1999 SIGMOIDOSCOPY 1999 VIRTUAL COLONOSCOPY 1999 OSTEOPOROSIS SCREENING INITIAL (ONE-TIME) 2019 ZOSTER VACCINES (2 of 2) 03/20/2020 01/24/2020 INFLUENZA VACCINE (#1) 2024 4, 01/16/2023, 01/10/2022, Additional history exists COVID-19 VACCINE (2024- season) 2024 04/29/2021, 08/23/2020, 08/02/2020 CREATININE LEVEL 01/18/2026 01/18/2025 RSV VACCINE (1 - 1-dose 75+ series) [...] Procedure Name Priority Date/Time Associated Diagnosis Comments URINE SEDIMENT STAT 01/18/2025 6:25 PM EDT URINALYSIS W/REFLEX URINE CULTURE STAT 01/18/2025 6:25 PM EDT URINE CULTURE Routine 01/18/2025 6:25 PM EDT LIPASE STAT 01/18/2025 5:19 PM EDT LFTS (HEPATIC PANEL) STAT 01/18/2025 5:19 PM EDT BASIC METABOLIC PANEL STAT 01/18/2025 5:19 PM EDT CBC AND DIFFERENTIAL STAT 01/18/2025 5:19 PM EDT JOINT ASPIRATION WITH FLUOROSCOPY GUIDANCE (IR) Routine 12/08/2024 1:54 PM EDT Osteoarthritis of ankle and foot, unspecified laterality XR FOOT (RIGHT) Routine 11/05/2024 10:48 AM EDT Right foot pain from Last 3 Months Results * (ABNORMAL) Urinalysis w/reflex Urine Culture (01/18/2025 6:25 PM EDT) COLOR BRITTANY(A) Yellow [facility] CLARITY CLOUDY [facility] GLUCOSE Negative Negative [facility] BILI 1+(A) Negative [facility] KETONES Negative Negative [facility] SPECIFIC GRAVITY >1.030 1.005 - 1.030 [facility] BLOOD 3+(A) Negative [facility] PH 5.5 5.0 - 8.0 [facility] Protein-UA 2+(A) Negative [facility] NITRITE Negative Negative [facility] Leukocyte esterase, ur 2+(A) Negative [facility] Urine (Urine) 01/18/2025 6:2 5 PM EDT 01/18/2025 6:43 PM EDT us Angelito Mcrae MD URINE ORDERABLES Final Result [facility] [address] [place] [address] * (ABNORMAL) Urine Culture (01/18/2025 6:25 PM EDT) Special Requests None Reflexed from [id number] 01/18/2025 7:33 PM EDT [facility] Urine Culture >100,000 colony forming units per mL KLEBSIELLA OXYTOCA(A) 01/20/2025 10:29 AM EDT [facility] Urine Culture >100,000 colony forming units per mL BETA HEMOLYTIC STREPTOCOCCUS GROUP B(A) 01/20/2025 10:29 AM EDT [facility] Urine 01/18/2025 6:25 PM EDT 01/18/2025 6:43 PM EDT Narrative Organism Antibiotic Method Susceptibility Klebsiella oxytoca Ampicillin ROGERIO METHOD <=2: Resistant Klebsiella oxytoca Ampicillin + Sulbactam ROGERIO METHOD <=2: Susceptible Klebsiella oxytoca Cefepime ROGERIO METHOD <=0.12: Susceptible Klebsiella oxytoca Ceftazidime ROGERIO METHOD <=0.5: Susceptible Klebsiella oxytoca Ceftriaxone ROGERIO METHOD <=0.25: Susceptible Klebsiella oxytoca Ciprofloxacin ROGERIO METHOD <=0.06: Susceptible Klebsiella oxytoca Extended Spectrum B-lactamase ROGERIO M ETHOD Negative Klebsiella oxytoca Gentamicin ROGERIO METHOD <=1: Susceptible Klebsiella oxytoca Levofloxacin ROGERIO METHOD <=0.12: Susceptible Klebsiella oxytoca Nitrofurantoin ROGERIO METHOD 32: Susceptible Klebsiella oxytoca Piperacillin-tazobactam ROGERIO METHOD <=4: Susceptible Klebsiella oxytoca Trimethoprim/sulfamethoxazole ROGERIO M ETHOD <=20: Susceptible Comment: Angelito Mcrae MD MICROBIOLOGY - GENERAL ORDERABL ES Final Result [address] [address] * (ABNORMAL) Urine sediment (01/18/2025 6:25 PM EDT) WBC TOO NUMEROUS TO COUNT(A) NONE SEEN /hpf [facility] RBC 50-100(A) NONE SEEN /hpf [facility] URINE EPITHELIAL 5-10(A) NONE SEEN [facility] MUCUS NONE SEEN NONE SEEN /hpf [facility] BACTERIA 2+(A) NONE SEEN /hpf [facility] 01/18/2025 6:25 PM EDT 01/18/2025 6:43 PM EDT Angelito Mcrae MD URINE ORDERABLES Final Result Performing Organization Address [facility]/ZIP Co de Phone Number [address] [address] * LFTs (hepatic panel) (01/18/2025 5:19 PM EDT) ALKALINE PHOSPHATASE 92 39 - 117 U/L [facility] TOTAL BILIRUBIN 0.6 0.0 - 1.2 mg/dL [facility] DIRECT BILIRUBIN 0.2 0.0 - 0.2 mg/dL [facility] Bilirubin (Indirect) 0.4 0 - 1.5 mg/dL [facility] AST 18 0 - 37 U/L [facility] ALT 17 0 - 40 U/L [facility] TOTAL PROTEIN 6.6 6.5 - 8.0 g/dL [facility] ALBUMIN 4.2 3.9 - 4.8 g/dL [facility] GLOBULIN 2.4 1 - 4.8 g/dL [facility] A/G Ratio 1.75 1.00 - 4.80 RATIO [facility] Blood 01/18/2025 5:19 PM EDT 01/18/2025 5:23 PM EDT Angelito Mcrae MD LAB BLOOD ORDERABLES Final Resu lt Performing Organization Address [facility] Co de Phone Number [address] [address] * (ABNORMAL) CBC and differential (01/18/2025 5:19 PM EDT) WBC 13.57(H) 4.00 - 11.00 K/uL [facility] RBC 5.55(H) 4.00 - 5.20 M/uL [facility] HGB 15.2 12.0 - 16.0 g/dL [facility] HCT 47.4(H) 36.0 - 46.0 % [facility] PLT 235 150 - 450 K/uL [facility] MCV 85.4 80.0 - 100.0 fL [facility] MCH 27.4 27.0 - 31.0 pg [facility] MCHC 32.1 32.0 - 36.0 g/dL [facility] RDW 13.1 11.5 - 14.5 % [facility] MPV 8.7 8.4 - 12.0 fL [facility] NRBC 0.00 0.00 /100 WBCs [facility] ABSOLUTE NRBC 0.00 0.00 K/uL [facility] DIFF METHOD Auto [facility] NEUTS 77.8(H) 48.0 - 76.0 % [facility] LYMPHS 13.9(L) 18.0 - 41.0 % [facility] MONOS 5.5 4.0 - 11.0 % [facility] EOS 1.8 0.0 - 5.0 % [facility] BASOS 0.7 0.0 - 1.5 % [facility] Granulocytes, immature (%) 0.3 0.0 - 0.9 % [facility] ABSOLUTE NEUTS 10.58(H) 1.92 - 7.60 K/uL [facility] ABSOLUTE LYMPHS 1.88 0.72 - 4.10 K/uL [facility] ABSOLUTE MONOS 0.74 0.16 - 1.10 K/uL [facility] ABSOLUTE EOS 0.24 0.00 - 0.50 K/uL [facility] ABSOLUTE BASOS 0.09 0.00 - 0.15 K/uL [facility] Granulocytes, immature 0.04 0.00 - 0.09 K/uL [facility] Blood 01/18/2025 5:19 PM EDT 01/18/2025 5:23 PM EDT us Angelito Mcrae MD LAB BLOOD ORDERABLES Final Resu lt [facility] [address] [place] [address] * (ABNORMAL) Lipase (01/18/2025 5:19 PM EDT) LIPASE 10(L) 16 - 63 U/L [facility] Blood 01/18/2025 5:19 PM EDT 01/18/2025 5:23 PM EDT Angelito Mcrae MD LAB BLOOD ORDERABLES Final Resu lt Performing Organization Address [facility] Co de Phone Number [address] [address] * (ABNORMAL) Basic metabolic panel (01/18/2025 5:19 PM EDT) SODIUM 143 133 - 146 mmol/L [facility] CHLORIDE 108 96 - 108 mmol/L [facility] POTASSIUM 4.4 3.3 - 5.1 mmol/L [facility] CO2 23 21 - 35 mmol/L [facility] BUN 36(H) 6 - 19 mg/dL [facility] CREATININE 1.40 0.5 - 1.5 mg/dL [facility] GLUCOSE 124(H) 70 - 99 mg/dL [facility] CALCIUM 10.0 8.4 - 10.3 mg/dL [facility] EGFR 40(L) >59 mL/min/1.7 3m2 [facility] Comment:Estimated glomerular filtration rate calculated using the CKD-EPI refit equation. ANION GAP 16 10 - 20 mmol/L [facility] Blood 01/18/2025 5:19 PM EDT 01/18/2025 5:23 PM EDT Angelito Mcrae MD LAB BLOOD ORDERABLES Final Resu lt Performing Organization Address [facility] Co de Phone Number [address] [address] * JOINT ASPIRATION WITH FLUOROSCOPY GUIDANCE (IR) (12/08/2024 1:54 PM EDT) Anatomical Region Laterality Modality X-Ray Angiograph y Narrative 12/08/2024 3:53 PM EDT Impression: 1. Fluoroscopic guided right navicular-cuneiform joint steroid injection/arthrogram. History: Patient with history of right mid-foot pain who presents for right mid-foot joint injection. Target is the navicular-cuneiform joint as this communicates with the 2nd tarsalmetatarsal joint. 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 Jules Erickson MD [facility] Final Result from Last 3 Months Insurance [facility] FEDERAL MEDICARE A MEDICARE A MEDICARE A [facility] MEDICARE A [facility] MEDICARE A [facility] [place]IC[place] [address] [place] [address] MEDICARE A [facility] MEDICARE A [facility] MEDICARE A Care Teams Vine Fruit Farm[employer] Supervisor Relationship Specialty Start Date End Date Benji Salcedo MD [address] [place] [id number] PCP - General Internal Medicine 11/04/24 Additional Source Comments The information contained in this document represents components of the legal health record. It is not the complete legal health record.[facility]
--- OUTSIDE RECORDS SUMMARY | 2025-01-27 17:30 | XMS_ITS | Encounter Summary ---
Author Organization [facility] Address [address] [facility] [address] [place] [phone] Phone Care Team Providers Care Digital Operations Analyst Name Role Phone Benji Salcedo MD Primary Care Provider [phone] Encounter Details Date Type Department Care Team ([facility] st Contact Info) Description 12/08/2024 Procedure Pass [facility] Cardiovascular And Interventional Radiology [address] [place] [address] Social History Tobacco Use Types Packs/Day Years [...] on filedocumented in this encounter Care Teams Digital Operations Analyst Relationship Specialty Start Date End Date Benji Salcedo MD [address] [place] [address] PCP - General Internal Medicine 11/04/24 documented as of this encounter Additional Source Comments The information contained in this document represents components of the legal health record. It is not the complete legal health record.[facility]
--- OUTSIDE RECORDS SUMMARY | 2025-01-27 17:30 | XMS_ITS | Encounter Summary ---
Author Organization [facility] Address [address] [facility] [address] [place] [address] Phone Care Team Providers Care Gin Feeder Name Role Phone Benji Salcedo MD Primary Care Provider [phone] Benji Salcedo MD Primary Care Provider [phone] Encounter Details Date Type Department Care Team (Late st Contact Info) Description 04/28/2024 Ancillary Orders [facility] Orthopedics at [place] [id number] [facility] [address] [place] [address] Lam Grimes MD [address] [place] [address], [address] [place] [address] [email or web address] Pain (Primary Dx) Social History Tobacco [...] pain documented in this encounter Care Teams Gin Feeder Relationship Specialty Start Date End Date Benji Salcedo MD [facility] [address] [address] PCP - General Internal Medicine 12/29/21 11/03/24 Benji Salcedo MD [address] [address] PCP - General Internal Medicine 11/04/24 documented as of this encounter Additional Source Comments The information contained in this document represents components of the legal health record. It is not the complete legal health record.[facility]
== END 2025-01-27 15:16 | disposition home or self-care (01) ==
LOC: HO.HKAS 14:38
PROVIDERS: PCP Internal Medicine; Visit Provider Internal Medicine Nephrology
DX: N18.31 Chronic kidney disease, stage 3a (principal)
CPT/HCPCS: 99214

== ENCOUNTER 2025-01-30 15:11 | Outpatient (REF) | payer BC, SELFPAY ==
--- OUTSIDE RECORDS SUMMARY | 2024-11-12 06:00 | XMS_ITS ---
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
--- OUTSIDE RECORDS SUMMARY | 2024-11-13 02:31 | XMS_ITS ---
Author Organization [facility] Address [address] [place], [place] [address] Care Team Providers Care Chief Quality Officer Name Role Phone HELENE QUEZADA Primary Care Provider [phone] REASON FOR VISIT (2) lab Encounters Encounter Location Date Provider Diagnosis [facility] [address] [place] [address] 11/13/2024 HELENE QUEZADA PLAN OF TREATMENT Next Appt Details Provider Name:HELENE QUEZADA , 04/17/2025 03:15:00 PM, [address] [place], [address],
--- OUTSIDE RECORDS SUMMARY | 2024-11-18 09:15 | XMS_ITS ---
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 Medication SIG (Take, Route, [...] a day for 30 days Active Nystatin 080894 UNIT/GM 1 application Ex ternally Twice a [...] 11/18/2024 Encounters Encounter Location Date Provider Diagnosis [facility] [address] [place] [address] 11/18/2024 HELENE GRIDLEY Right foot pain M79.671 ; Essential (primary) [...] wit h food Orally Twice a day Next Appt Details Provider Name:HELENE QUEZADA , 04/17/2025 03:15:00 PM, [address] [place], [address], Progress Notes * Examination Category Sub-Category Detail Notes Category Not es General Examination Heart: RSR, normal S1S2 Lungs: clear to auscultatio n Extremities: Patient saw Dr Jordyn kwok at [facility] - orthopedist. He recommended injection in [...] is not wearing. She saw Dre in [facility] - wants to do injection Dec 08 - Dr Conteh recommended PT
--- OUTSIDE RECORDS SUMMARY | 2024-11-18 11:55 | XMS_ITS ---
Author Organization [facility] Address [address] [place], [place] [phone] Care Team Providers Care Product/Industry Consultant Name Role Phone HELENE QUEZADA Primary Care Provider REASON FOR VISIT Acetaminophen-Codeine 300-30 MG Tablet MEDICATIONS Medication SIG (Take, Route, Frequency, Duration) Notes Start Date End Date Status Acetaminophen-Codeine 300-30 MG 1 tablet as needed Orally 3 times daily for 7 days 11/18/2024 Active Encounters Encounter Location Date Provider Diagnosis [facility] [address] [place] [address] 11/18/2024 HELENE QUEZADA Right foot pain M79.671 [...] Name:HELENE QUEZADA , 04/17/2025 03:15:00 PM, [address] [place], [address],
--- OUTSIDE RECORDS SUMMARY | 2024-11-19 10:24 | XMS_ITS ---
Author Organization [facility] Address [address] [place], [place] [phone] Care Team Providers Care Executive Director Of Marketing Name Role Phone HELENE QUEZADA Primary Care Provider [phone] REASON FOR VISIT (FYI) Medication Request Encounters Encounter Location Date Provider Diagnosis [facility] [address] [place] [address] 11/19/2024 HELENE QUEZADA PLAN OF TREATMENT Next Appt Details Provider Name:HELENE QUEZADA , 04/17/2025 03:15:00 PM, [address] [place], [address],
--- OUTSIDE RECORDS SUMMARY | 2024-12-16 10:56 | XMS_ITS ---
Author Organization [facility] Address [address] [place], [place] [phone] Care Team Providers Care Svp Of Digital Name Role Phone HELENE QUEZADA Primary Care Provider REASON FOR VISIT Update for MD Encounters Encounter Location Date Provider Diagnosis [facility] [address] [place] [address] 12/16/2024 HELENE QUEZADA PLAN OF TREATMENT Next Appt Details Provider Name:HELENE QUEZADA , 04/17/2025 03:15:00 PM, [address] [place], [address],
--- OUTSIDE RECORDS SUMMARY | 2024-12-22 10:45 | XMS_ITS ---
Author Organization [facility] Address [address] [place], [place] [phone] Care Team Providers Care Chrome Polisher Name Role Phone HELENE QUEZADA Primary Care Provider REASON FOR VISIT 41/ 1mo Encounters Encounter Location Date Provider Diagnosis [facility] [address] [place] [address] 12/22/2024 HELENE QUEZADA PLAN OF TREATMENT Next Appt Details Provider Name:EHLENE QUEZADA , 04/17/2025 03:15:00 PM, [address] [place], [address],
--- OUTSIDE RECORDS SUMMARY | 2025-01-19 11:51 | XMS_ITS ---
Author Organization [facility] Address [address] [place], [place] [id number] Care Team Providers Care Loading Unit Tool Setter Name Role Phone HELENE QUEZADA Primary Care Provider REASON FOR VISIT (2) hospital yesterday Encounters Encounter Location Date Provider Diagnosis [facility] [address] [place] [address] 01/19/2025 HELENE QUEZADA PLAN OF TREATMENT Next Appt Details Provider Name:HELENE QUEZADA , 04/17/2025 03:15:00 PM, [address] [place], [address],
--- OUTSIDE RECORDS SUMMARY | 2025-01-20 10:15 | XMS_ITS ---
Author Organization [facility] Address [address] [place], [place] [id number] Care Team Providers Care Retort Operator Name Role Phone HELENE QUEZADA Primary [...] as directed for 90 days Active Nystatin 142717 UNIT/GM 1 application Ex ternally Twice a [...] chronic kidney disease (CKD) (N18.31) Active confirmed 936243430 VITAL SIGNS Height 62.5 in 01/20/2025 Weight 188.4 lbs 01/20/2025 Blood pressure systolic 124 mm Hg 01/21/20 25 Blood pressure diastolic 70 mm Hg 025 BMI 33.91 kg/m2 01/20/2025 Encounters Encounter Location Date Provider Diagnosis [facility] [address] [place] [address] 01/20/2025 [facility] Right flank pain R10.A1 ; Acute [...] R10.A1) 1. UTI: Review of culture from [facility] shows Klebsiella which is sensitive to her current Macrodantin. Will continue same 2. Right flank pain with gross hematuria: Question underlying stone as a source of infection. Will check a CT with renal stone protocol. Further recommendations pending results 3. Hypertension: Stable on current amlodipine/olmesar wood and metoprolol. Will continue same 4. Right foot pain: Finally improved after cortisone injection with podiatry in [place]. Underlying degenerative arthritis appears to have been [...] improved after cortisone injection with podiatry in [place]. Underlying degenerative arthritis appears to have been the source of her symptoms. Will follow 5. Stage IIIa chronic kidney disease: Stable on current medical therapy. Knows to avoid NSAIDs. She has upcoming follow-up with Dr. Patton from nephrology 6. Type 2 diabetes mellitus: Improved on Ozempic. Will continue present dosing 01/20/2025 Gross hematuria (ICD-10 - R31.0) 1. UTI: Review of culture from [facility] shows Klebsiella which is sensitive to her current Macrodantin. Will continue same 2. Right flank pain with gross hematuria: Question underlying stone as a source of infection. Will check a CT with renal stone protocol. Further recommendations pending results 3. Hypertension: Stable on current amlodipine/olmesar wood and metoprolol. Will continue same 4. Right foot pain: Finally improved after cortisone injection with podiatry in [place]. Underlying degenerative arthritis appears to have been [...] improved after cortisone injection with podiatry in [place]. Underlying degenerative arthritis appears to have been [...] 1. UTI: Review of culture from [facility] shows Klebsiella which is sensitive to her current Macrodantin. Will continue same 2. Right flank pain with gross hematuria: Question underlying stone as a source of infection. Will check a CT with renal stone protocol. Further recommendations pending results 3. Hypertension: Stable on current amlodipine/olmesar wood and metoprolol. Will continue same 4. Right foot pain: Finally improved after cortisone injection with podiatry in [place]. Underlying degenerative arthritis appears to have been [...] improved after cortisone injection with podiatry in [place]. Underlying degenerative arthritis appears to have been [...] improved after cortisone injection with podiatry in [place]. Underlying degenerative arthritis appears to have been [...] Provider Name:HELENE SANDOVALFORD , 04/17/2025 03:15:00 PM, [address] [place] [address], [phone], Progress Notes * Examination Category Sub-Category Detail [...] Category Not es General Patient went to [facility] Sunday - with hematuria - wasd dx with URI and started on macrodantin. She reports hematuria stopped but still has pelvic pressure and right flank pain. No fever or chills. Did not have CT scan in ED. Has had some chills.
--- OUTSIDE RECORDS SUMMARY | 2025-01-26 08:27 | XMS_ITS ---
Author Organization [facility] Address [address] [place], [place] [id number] Care Team Providers Care Pavilion Cutter Name Role Phone HELENE QUEZADA Primary Care Provider [phone] REASON FOR VISIT (FYI) CT Scan Encounters Encounter Location Date Provider Diagnosis [facility] [address] [place] [address] 01/26/2025 HELENE QUEZADA PLAN OF TREATMENT Next Appt Details Provider Name:HELENE QUEZADA , 04/17/2025 03:15:00 PM, [address] [place], [phone],
--- OUTSIDE RECORDS SUMMARY | 2025-01-30 17:38 | XMS_ITS | Patient Health Record ---
Author Organization [place] [email or web address] [facility] Address [address], [place] [address] Care Team Providers Care Art History Professor Name Role Phone PILAR HELENE Primary Care Provider [phone] MARY LEWIS Unavailable ALLERGIES Allergen (clinical drug [...] REASON FOR REFERRAL Reason (2)New patient Appt [facility] Orthopedics Diagnosis 1 Primary osteoarthrit is of right knee (M17.11) Referral Organization [facility] Bridger mosher Referring Provider First Name HELENE [...] Foot pain, left (M79 .672) Referral Organization [facility] vidhi Referring Provider First Name HELENE Referring Provider Last Name PILAR Referring Provider Speciality Internal M edicine Referred Provider Specialty Physical The [facility] Referral Priority Routine Reason (faed thru EMR 5) New patient appt CT Generation Engineer, [address] [place] [address] fax: [phone]. please send MRI Diagnosis 1 Tendinitis of right foot (M77.51) Referral Organization [facility] As sociates Referring Provider First Name HELENE Referring Provider Last Name PILAR Referring Provider Speciality Internal M edicine Referred Provider Specialty Orthopedic S urgery General Notes Radha RAMIREZ Jaime [facility] 04/2024 02:28:47 PM >Per patient [place] has appointment with your physician 10/20/24. Will send MRI result/report to you separately., ASHLEYMary Ellen P Admin 11/10/2024 08:52:16 AM > no referral requierd with ppo plan Referral Priority Urgent Referral Appointment Date 10/20/2024 MEDICATIONS Medication SIG (Take, Route, Frequency, Duration) Notes Start Date End Date Status Metoprolol Tartrate 50 MG 1 tablet with food Orally Twice a day Active amLODIPine-Olmesartan 10-20 MG 1 tablet Orally Once a day Active Ozempic (2 MG/DOSE) 8 MG/3ML as directed Subcutaneous every 7 days 10/01/2024 Active Furosemide 20 MG TAKE ONE TABLET BY OUTH EVERY DAY FOR LEG SWELLING for 30 Active Acetaminophen-Codeine 300-30 MG TAKE 1 TABLET NEEDED BY MOUTH 3 TIMES A DAY FOR 7 DAYS for 7 12/10/2024 Active Allopurinol 100 MG 1 tablet Orally Once a day Not-Taking FreeStyle Ladonna 3 Sensor - as directed applied to skin as directed for 90 days Active Nystatin 901070 UNIT/GM 1 application Ex ternally Twice a [...] Code Notes Problem Cough (R05) Active confirmed 34382910 Problem Obstructive sleep apnea (G47.33) Active confirmed 30543013 Problem GERD without esophagitis (K21.9) Active confirmed 666332827 Problem Mixed hyperlipidemia (E78.2) Active confirmed 412014955 Problem Anxiety (F41.9) Active confirmed 838429 02 Problem Primary osteoarthritis of both knees (M17.0) Active confirmed 359545913 Problem Primary osteoarthritis of right knee (M17.11) Active confirmed 235451878237855 Problem Constipation, unspecified constipation type (K59.00) Active confirmed 70762091 Problem Gouty arthritis (M10.9) Active confirmed 68308028 Problem Acute idiopathic gout of right foot (M10.071) Active confirmed 95467716 Problem Bronchitis with bronchospasm (J20.9) Active confirmed 87406904 Problem Meningioma (D32.9) Active confirmed 392260949 Problem Leukocytosis, unspecified type (D72.829) Active confirmed 809071853 Problem Type 2 diabetes mellitus with hyperglycemia, without long-term current use of insulin (E11.65) Active confirmed Hyperglycem ia due to type 2 diabetes mellitus (167055484496668) Problem Type 2 diabetes mellitus without complication, without long-term current use of insulin (E11.9) Active confirmed Type II diab etes mellitus without complication (712998120) Problem Stage 3a chronic kidney disease (CKD) (N18.31) Active confirmed 709608014 Problem Persistent depressive disorder (F34.1) Active confirmed 3162506610 Problem Stasis dermatitis (I87.2) Active confirmed 42504415 Problem Other fatigue (R53.83) 04/12/20 Active confirmed Fatigue (91765056) Problem Essential (primary) hypertension (I10) 04/12/20 Active confirmed Essential hypertension (21479709) Problem Dorsalgia, unspecified (M54.9) 04/12/20 Active confirmed Backache (315127577) VITAL SIGNS Blood pressure diastolic 70 mm Hg 01/20/2025 Height 62.5 in 01/20/2025 Blood pressure systolic 124 mm Hg 01/20/2025 Weight 188.4 lbs 01/20/2025 BMI 33.91 kg/m2 01/20/2025 Encounters Encounter Location Date Provider Diagnosis [address] [address] 02/04/[address] [address] 02/04/[address] [address] 02/04/2024 [place] Gastroenteritis K52. 9 and Essential (primary) hypertension I10 [address] [address] 02/06/[address] [address] 02/06/[address] [address] 02/10/2024 MARY LEWIS [address] [address] 02/13/[address] [address] 02/13/2024 [facility] C. difficile diarrhe a A04.72 ; Abdominal cramping R10.9 and Essential (primary) hypertension I10 [address] [address] 02/15/[address] [address] 02/21/[address] [address] 02/27/2024 [facility] Acute diarrhea R19.[address] [address] 02/29/2024 [place] Type 2 diabetes mellitus without complication, without long-term current use of insulin E11.[address] [address] 03/05/2024 [place] Acute diarrhea R19.[address] [address] 03/05/2024 [facility] [address] [place] [address] 03/06/2024 [place] Essential (primary) hypertension I10 and Mixed hyperlipidemia E78.2 [facility] [address] [place] [address] 03/10/2024 [facility] [address] [place] [address] 03/11/2024 [facility] [address] [place] [address] 03/11/2024 [place] Left leg cellulitis L03.116 ; Essential (primary) hypertension I10 and Primary osteoarthritis of right knee M17.11 [facility] [address] [place] [address] 03/12/2024 [facility] [address] [address] 03/25/2024 HELENE [place] Essential (primary) hypertension I10 ; Type 2 diabetes mellitus with hyperglycemia, without long-term current use of insulin E11.65 ; Mixed hyperlipidemia E78.2 ; Persistent depressive disorder F34.1 ; Meningioma D32.9 ; Primary osteoarthritis of right knee M17.11 and Encounter for general adult medical examination without abnormal findings Z00.00 [facility] [address] [place] [address] 03/28/2024 [place] Acute diarrhea R19.7 [facility] [address] [address] 04/03/2024 [facility] [address] [address] 04/03/2024 [facility] [address] [address] 04/15/2024 [place] Acute diarrhea R19.7 [facility] [address] [address] 04/30/2024 [facility] [address] [address] 04/30/2024 [place] Primary osteoarthritis of right knee M17.11 [facility] [address] [place] [address] 05/02/2024 [facility] [address] [place] [address] 05/07/2024 [facility] [address] [place] [address] 05/09/2024 [facility] [address] [place] [address] 05/09/2024 [facility] Acute diarrhea R19.7 [facility] [address] [place] [address] 05/12/2024 [facility] [address] [place] [address] 05/14/2024 [facility] [address] [place] [address] 05/14/2024 [facility] [address] [place] [address] 05/16/2024 [facility] [address] [place] [address] 05/22/2024 [facility] [address] [place] [address] 2024 [facility] [address] [place] [address] 05/29/2024 [facility] [address] [place] [address] 06/03/2024 [facility] Acute diarrhea R19.7 [facility] [address] [place] [address] 06/03/2024 [facility] [address] [place] [address] 06/16/2024 [facility] [address] [place] [address] 06/30/2024 [facility] [address] [place] [address] 07/07/2024 [facility] [address] [place] [address] 07/11/2024 [facility] [address] [place] [address] 07/11/2024 [facility] [address] [place] [address] 07/14/2024 [facility] Essential (primary) hypertension I10 ; Primary osteoarthritis of right knee M17.11 ; Type 2 diabetes mellitus without complication, without long-term current use of insulin E11.9 and Right foot pain M79.671 [facility] [address] [place] [address] 07/15/2024 [facility] [address] [place] [address] 07/18/2024 [facility] Right foot pain M79.671 [facility] [address] [place] [address] 07/25/2024 [facility] Right foot pain M79.671 [facility] [address] [place] [address] 08/04/2024 [facility] [address] [place] [address] 08/04/2024 [facility] [address] [place] [address] 08/07/2024 [facility] Essential (primary) hypertension I10 ; Abdominal cramping R10.9 and Foot pain, left M79.672 [facility] [address] [place] [address] 08/11/2024 [facility] [address] [place] [address] 08/14/2024 [facility] [address] [place] [address] 08/20/2024 [facility] [address] [place] [address] 08/21/2024 [facility] Acute idiopathic gou t of right foot M10.071 [facility] [address] [place] [address] 08/25/2024 [facility] [address] [place] [address] 09/03/2024 [facility] [address] [place] [address] 09/09/2024 [facility] [address] [place] [address] [place] [address] 09/11/2024 [facility] [address] [place] [address] 09/15/2024 [facility] Right foot pain M79.671 ; Essential (primary) hypertension I10 and Gouty arthritis M10.9 [facility] [address] [place] [address] 09/17/2024 [facility] [address] [place] [address] 09/17/2024 [facility] [address] [place] [address] 09/17/2024 [facility] Cellulitis of hand L03.119 [facility] [address] [place] [address] 09/23/2024 [facility] [address] [address] 10/01/[address] [address] 10/01/2024 [facility] Type 2 diabetes mellitus with hyperglycemia, without long-term current use of insulin E11.65 ; Right foot pain M79.671 ; Essential (primary) hypertension I10 and Traumatic injury of head, initial encounter S09.90XA [address] [address] 10/02/2024 [facility] Right foot pain M79.[address] [address] 10/03/2024 [facility] [address] [address] 10/03/2024 [facility] [address] [address] 10/03/2024 [facility] [address] [address] 10/07/2024 [facility] [address] [address] 10/07/2024 [facility] [address] [address] 10/10/2024 [facility] Tendinitis of right foot M77.51 [facility] [address] [place] [address] 10/15/2024 [facility] [address] [place] [address] 10/23/2024 [facility] Type 2 diabetes mellitus without complication, without long-term current use of insulin E11.9 and Gouty arthritis M10.9 [facility] [address] [place] [address] 11/03/2024 [facility] [address] [place] [address] 11/12/[address] [address] 11/13/2024 [facility] [address] [place] [address] 11/18/2024 [facility] Right foot pain M79.671 ; Essential (primary) hypertension I10 and Type 2 diabetes mellitus without complication, without long-term current use of insulin E11.9 [facility] [address] [place] [address] 11/18/2024 [facility] Right foot pain M79.[address] [address] 11/19/2024 [facility] [address] [place] [address] 12/16/2024 [facility] [address] [place] [address] 12/22/2024 [facility] [address] [address] 01/19/2025 [facility] [address] [address] 01/20/2025 [facility] Right flank pain R10.A1 ; Acute UTI (urinary tract infection) N39.0 ; Gross hematuria R31.0 ; Essential (primary) hypertension I10 ; Right foot pain M79.671 ; Stage 3a chronic kidney disease (CKD) N18.31 and Type 2 diabetes mellitus without complication, without long-term current use of insulin E11.9 [facility] [address] [address] 01/26/2025 [facility] ASSESSMENTS Encounter Date Diagnosis Assessment Notes Treatment [...] maintenance: She will book her mammogram at [facility]. Colonoscopy was done in 2021 and is [...] maintenance: She will book her mammogram at [facility]. Colonoscopy was done in 2021 and is [...] - M17.11) 1. Right knee osteoarthritis: Reportedly ziki-[id number] and end-stage. Current orthopedic appointment in [place] is not until August and patient does not wish to wait this long. She requests referral to [facility]. We will trial cautious Tylenol with codeine [...] knee: Has a second opinion with the [place] doctor who does the procedure robotically. She [...] knee: Has a second opinion with the [place] doctor who does the procedure robotically. She [...] N39.0) 1. UTI: Review of culture from [facility] shows Klebsiella which is sensitive to her current Macrodantin. Will continue same 2. Right flank pain with gross hematuria: Question underlying stone as a source of infection. Will check a CT with renal stone protocol. Further recommendations pending results 3. Hypertension: Stable on current amlodipine/olmesar wood and metoprolol. Will continue same 4. Right foot pain: Finally improved after cortisone injection with podiatry in [place]. Underlying degenerative arthritis appears to have been the source of her symptoms. Will follow 5. Stage IIIa chronic kidney disease: Stable on current medical therapy. Knows to avoid NSAIDs. She has upcoming follow-up with Dr. Patton from nephrology 6. Type 2 diabetes mellitus: Improved on Ozempic. Will continue present dosing 01/20/2025 Right flank pain (ICD-10 - R10.A1) 1. UTI: Review of culture from [facility] shows Klebsiella which is sensitive to [...] improved after cortisone injection with podiatry in [place]. Underlying degenerative arthritis appears to have been [...] maintenance: She will book her mammogram at [facility]. Colonoscopy was done in 2021 and is next due in 2026. Fasting labs are up-to-date. She has had her vaccinations 01/20/2025 Gross hematuria (ICD-10 - R31.0) 1. UTI: Review of culture from [facility] shows Klebsiella which is sensitive to [...] improved after cortisone injection with podiatry in [place]. Underlying degenerative arthritis appears to have been [...] knee: Has a second opinion with the [place] doctor who does the procedure robotically. She [...] I10) 1. UTI: Review of culture from [facility] shows Klebsiella which is sensitive to her current Macrodantin. Will continue same 2. Right flank pain with gross hematuria: Question underlying stone as a source of infection. Will check a CT with renal stone protocol. Further recommendations pending results 3. Hypertension: Stable on current amlodipine/olmesar wood and metoprolol. Will continue same 4. Right foot pain: Finally improved after cortisone injection with podiatry in [place]. Underlying degenerative arthritis appears to have been [...] knee: Has a second opinion with the [place] doctor who does the procedure robotically. She [...] maintenance: She will book her mammogram at [facility]. Colonoscopy was done in 2021 and is next due in 2026. Fasting labs are up-to-date. She has had her vaccinations 01/20/2025 Right foot pain (ICD-10 - M79.671) 1. UTI: Review of culture from [facility] shows Klebsiella which is sensitive to [...] improved after cortisone injection with podiatry in [place]. Underlying degenerative arthritis appears to have been [...] maintenance: She will book her mammogram at [facility]. Colonoscopy was done in 2021 and is next due in 2026. Fasting labs are up-to-date. She has had her vaccinations 01/20/2025 Stage 3a chronic kidney disease (CKD) (ICD-10 - N18.31) 1. UTI: Review of culture from [facility] shows Klebsiella which is sensitive to [...] improved after cortisone injection with podiatry in [place]. Underlying degenerative arthritis appears to have been [...] maintenance: She will book her mammogram at [facility]. Colonoscopy was done in 2021 and is [...] maintenance: She will book her mammogram at [facility]. Colonoscopy was done in 2021 and is next due in 2026. Fasting labs are up-to-date. She has had her vaccinations 01/20/2025 Type 2 diabetes mellitus without complication, without long-term current use of insulin (ICD-10 - E11.9) 1. UTI: Review of culture from [facility] shows Klebsiella which is sensitive to [...] improved after cortisone injection with podiatry in [place]. Underlying degenerative arthritis appears to have been [...] Date FLUID DIFFERENTIAL 06/22/2014 GI Profile, Stool, [id number] 02/27/2024 GI Profile, Stool, [id number] 06/03/2024 GI Profile, Stool, [id number] 08/07/2024 Next Appt Details Provider Name:HELENE QUEZADA , 04/17/2025 03:15:00 PM, [address] [place], [address], Insurance Providers Payer Name Payer Address Payer Phone Subscriber Number Group Number Insured Name Patient Relationship to Insured Coverage Start Date Coverage End Date [employer] [address] [place] [phone] [id number] VANESSAR [place] Self - patient is the insured [...] partial hysterectomy 1991 [facility] lood [facility] 01/18/[address] [facility] Positive for COVID 12/16 as above
--- OUTSIDE RECORDS SUMMARY | 2025-01-30 17:38 | XMS_ITS | Encounter Summary ---
Author Organization [facility] Address [address] [place] [address] Phone Care Team Providers Care Center Hole Reamer Name Role Phone Benji Salcedo MD Primary Care Provider [phone] Encounter Details Date Type Department Care Team (Late st Contact Info) Description 07/13/2021 Telephone [facility] [address] [place] [address] Noy Tuttle Social History Tobacco [...] on filedocumented in this encounter Care Teams Center Hole Reamer Relationship Specialty Start Date End Date Benji Salcedo MD [address] [facility] [address] [place] [address] PCP - General 04/26/20 documented as of this encounter
--- OUTSIDE RECORDS SUMMARY | 2025-01-30 17:38 | XMS_ITS | Encounter Summary ---
Author Organization [facility] Address [address] [facility] [address] [place] [address] Phone Care Team Providers Care Lace Pinner Name Role Phone Benji Salcedo MD Primary Care Provider [phone] Benji Salcedo MD Primary Care Provider [phone] Encounter Details Date Type Department Care Team (Late st Contact Info) Description 04/28/2024 Ancillary Orders [facility] Orthoped[facility] at [place] [address] [facility] [address] [place] [address] Lam Grimes MD [address] [place] [address], [address] [place] [address] [email or web address] Pain (Primary Dx) Social History Tobacco Use [...] pain documented in this encounter Care Teams Lace Pinner Relationship Specialty Start Date End Date Benji Salcedo MD [address] [place] [address] PCP - General Internal Medicine 12/29/21 11/03/24 Benji Salcedo MD [address] [place] [address] PCP - General Internal Medicine 11/04/24 documented as of this encounter Additional Source Comments The information contained in this document represents components of the legal health record. It is not the complete legal health record.[facility]
--- OUTSIDE RECORDS SUMMARY | 2025-01-30 17:38 | XMS_ITS | Encounter Summary ---
Author Organization [facility] Address [address] [place] [address] Phone Care Team Providers Care Javascript Software Engineer Name Role Phone Benji Salcedo MD Primary Care Provider [phone] Encounter Details Date Type Department Care Team (Late st Contact Info) Description 08/29/2021 Telephone [facility] [address] [place] [address] Taqueria Hook MD Social History [...] side of her back. Please advise CB# [phone] Thank you documented in this encounter Plan of Treatment Not on file documented as of this encounter Visit Diagnoses Not on filedocumented in this encounter Care Teams Javascript Software Engineer Relationship Specialty Start Date End Date Benji Salcedo MD [address] [facility] [address] [place] [address] PCP - General 04/26/20 documented as of this encounter
--- OUTSIDE RECORDS SUMMARY | 2025-01-30 17:38 | XMS_ITS | Data Portability ---
Author Organization [facility] Aditya Owen [facility] [place] Address [address] [place] [address] Assessment Encounter Date Assessment Date Assessment LastModified [...] findings at length with the patient today. We discussed the nature and etiology of this problem along with current treatment options. We discussed the expected course and outcomes and what to expect. We also discussed risks and benefits. All of their questions were answered today, and there was exhibited understanding and comprehension of all that was discussed. 10 minutes were spent reviewing previous imaging and charting. 10 minutes were spent obtaining patient history. 5 minutes were spent on physical exam. 5minutes were spent explaining diagnosis and assessment. Today's [...] Surgeries total knee replacement (SURG) 2022 023 [email or web address] Not available 3 12:43:00 Imaging XR, knee, 4 or more view 2022 023 [facility], [address], [address], [place], [address], 3 07:44:36 Medication Orders None recorded. Patient TargetsNo targets recorded. Patient InstructionsNo instructions recorded. Reason for Referral None Reported. Problems Name Problem SNOMED Code Status Onset Date Resolution Date Notes Provider Name and Address Organization Details Recorded Time Osteoarthri tis of right knee joint 6994502770414 00 Active 2022 TOYA COMBS PA-C [address], [place], [address], [place] [facility] 3 07:47:22 Osteoarthri tis of left knee joint 8736618125239 09 Active 2022 TOYA COMBS PA-C [address], [place], [address], [place] [facility] 3 07:47:28 Problem Notes None recorded. Medical Equipment None Reported. Allergies Allergen ID Allergen Name Allergen Category Reaction Reaction Severity Criticality Documentation Date Start Date Code Code System Note Provider Name and Address Organization Details Recorded Time 3315 Product containin g penicilli n (product) medicatio n Not available Not available Not available 08/14/2022 54385 8001 SNOMED Kathy Quinn null, [place] [facility] 3 15:20:29 3316 vancomyci n medicatio n Not available Not available Not available 08/14/2022 28505 RxNorm Kathy Quinn null, [place] [facility] 3 15:20:51 Medications Name Sig Start Date Stop Date Status Note LastModified by Organization Details LastModified Time metformin 500 mg tablet TAKE 1 TABLET BY MOUTH EVERY DAY WITH MORNING AND EVENING MEALS active Not Available Not Available No t Available metoprolol tartrate 100 mg tablet Take by mouth 2 (two) times a day. active Not Available Not Available No t [...] Updated DateTime 08/14/2022 165.1 cm 36.6 kg/m2 44473.[address] [facility] 08/14/2022 15:21:42 Date Recorded Body height Provider Name an d Address Organization Details Last Updated DateTime 08/31/2022 165.1 cm Jenifer Peñaloza [facility] 08/31/2022 16:10:36 Social History None recorded. Functional Status Question Answer Note LastModified by Organizat ion Details LastModified Time Do you use any illicit or recreational drugs? No [email or web address] Information not available 08/14/2022 What is your level of alcohol consumption? None Information not available 08/14/2022 Mental Status None recorded. Family History Relationship Description Onset Age of this Age Resolved Age Notes LastModified by Organization Details LastModified Time Mother Family history of malignant neoplasm [email or web address] Not available 08/14 15:22:22 Father Diabetes mellitus [email or web address] Not available 08/14 15:22:30 Father Heart disease [email or web address] Not available 08/14 15:22:41 Father Hypertensive disorder [email or web address] Not available 08/14 15:22:50 Medical History Condition [...] Anemia N Brain Injury N Heart Attack (OK) N Osteopenia N Diabetes Y Bleeding Disorder [...] Diagnosis SNOMED-CT Code Diagnosis ICD10 Code Diagnosis IMO Codes Diagnosis Note 7796 TOYA COMBS PA-C [address] [address] 08/14/2022 14:58:36 08/14/2022 15:35:52 Pain of right knee joint 1711579933 57420 M25.561 Osteoarthr itis of right knee joint 3524282927 24976 M17.11 Osteoarthr itis of left knee joint 6996533141 01941 M17.12 [id number] Luis Carlos Beltran MD [address] [address] 08/31/2022 16:05:05 08/31/2022 16:27:49 Osteoarthritis of right knee joint 5981139764 80167 M17.11 Arthritis of knee 274112 002 M13.869 Health Concerns Section Related Observation LastModified by Organization Detai ls LastModified Time None Recorded Concern Status LastModified by Organization Details LastModified Time None Recorded Advance Directives Directive None Recorded Payers Insurance Date Sequence Insurance Name Policy Number Policy Tatum Covered Member ID Tatum Member ID Guarantor Name 08/31/2022 1 [place] [employer] [place] [employer] [id number] Pierce [id number] Belgica Pierce Notes Date Note Type Note Provider Name and Address Organization Details Recorded Time 08/14/2022 text/html Assessment and Plan: Date of visit 03/15/2021. Seen by me chart in [id number] female with end-stage degenerative joint disease of [...] which is not a consideration at this time.If we go ahead with knee bracing it will be a double hinged knee brace for stabilization. I did review her imaging studies with her in detail and she agrees with above no plan.Toya Combs PA-C HPI:This is a pleasant 67-year-old [...] both of her knees. TOYA COMBS PA-C [address] [place] [address], [address], [place] [facility] 08/15/2022 07:49:50 08/31/2022 text/html HPI: T kaylynn you for the pleasure of requesting a [...] degrees. The knee is stable within that [id number] to AP and ML stress. The alignment of the knee is varus. Muscle strength is normal. Pedal pulses are palpable. Hip examination, including flexion and internal rotation, was negative in that groin pain was not produced. Radiographs of the right knee from August 14, 2022 demonstrate degenerative joint disease with joint space narrowing, osteophyte formation, and subchondral sclerosis. [id number] articulation in the medial compartment. Assessment/Plan: The [...] patient is a good candidate for surgical reconstruction. Plan for right total knee replacement, robotic assisted, at [facility]. Luis Carlos Beltran MD [address], [place], [address], [place] [facility] 08/31/2022 16:35:11 OBGyn Episode No OBEpisode recorded.
--- OUTSIDE RECORDS SUMMARY | 2025-01-30 17:39 | XMS_ITS | Encounter Summary ---
Author Organization [facility] Address [address] [place] [address] Phone Care Team Providers Care Print Line Tailer Name Role Phone Benji Salcedo MD Primary Care Provider [phone] Encounter Details Date Type Department Care Team (Late st Contact Info) Description 08/15/2022 Telephone [facility] [address] [place] [address] Sue Tinoco Social History Tobacco [...] on filedocumented in this encounter Care Teams Print Line Tailer Relationship Specialty Start Date End Date Benji Salcedo MD [address] [place] [address] PCP - General 04/26/20 documented as of this encounter
--- OUTSIDE RECORDS SUMMARY | 2025-01-30 17:39 | XMS_ITS | Clinical Summary ---
Author Organization [facility] Address [address] [place] [address] Phone Care Team Providers Care Industrial Rehabilitation Consultant Name Role Phone Benji Salcedo MD Primary Care Provider [phone] Surgical History Surgery Date Site/Laterality Comments SECTION [...] complete this topic Insurance MEDICARE Care Teams Industrial Rehabilitation Consultant Relationship Specialty Start Date End Date Benji Salcedo MD PCP - General Internal Medicine 04/02/08
--- OUTSIDE RECORDS SUMMARY | 2025-01-30 17:39 | XMS_ITS | Clinical Summary ---
Author Organization [facility] Address [address] [place] [address] Care Team Providers Care Trouble Operator Name Role Phone Benji Salcedo MD [...] age to complete this topic Care Teams Trouble Operator Relationship Specialty Start Date End Date Benji Salcedo MD PCP - General Internal Medicine 09/10/14
--- OUTSIDE RECORDS SUMMARY | 2025-01-30 17:39 | XMS_ITS | Clinical Summary ---
Author Organization [facility] Address [address] [place] [address] [address] [place] [address] Phone Care Team Providers Care Multiple Slide Operator Name Role Phone Benji Salcedo MD Primary Care Provider [phone] Allergies Active Allergy Reactions Criticality Noted Date [...] patient's age to complete this topic Insurance [facility] Care Teams Multiple Slide Operator Relationship Specialty Start Date End Date Benji Salcedo MD [address] [place] [address] PCP - General 04/26/20
--- OUTSIDE RECORDS SUMMARY | 2025-01-30 17:40 | XMS_ITS | Data Portability ---
Author Organization [facility] Address [address] [facility] [address] [place] [address] Care Team Providers Care Lapidarist Name Role Phone HELENE QUEZADA Primary Care [...] She needs to follow up as needed. [email or web address] Not available 04/01/2024 16:42:22 Plan of Treatment Reminders Order Date Submit Date Provider Last Modified By Organization Details Last Modified Time Details Appointments RETURN 2024 02:30P M Bridger dan MD Not available Not available Not available PROCEDURE 2024 11:30A M Bridger dan MD Not available Not available Not available Lab None recorded. Referral None recorded. Procedures None recorded. Surgeries None recorded. Imaging None recorded. Medication Orders None recorded. Patient TargetsNo targets recorded. Patient Instructions Encounter Date Encounter Id Patient Instructions Last Modified By Organization Details Last Modified Time 10/31/2023 [id number] She was advised against bed rest lasting longer than four days and to continue activities as tolerated. [email or web address] Not available 10/31/2023 14:07:55 12/11/2023 [id number] She is a diabetic . Blood sugar levels may temporarily increase after steroid injections. She was advised to check blood glucose levels three times a day post procedure. If levels are above 250, she was advised to contact the PCP. [email or web address] Not available 12/11/2023 13:32:29 12/27/2023 [id number] She was advised against bed rest lasting longer than four days and to continue activities as tolerated. [email or web address] Not available 12/27/2023 16:33:20 04/01/2024 [id number] She is a diabetic . Blood sugar [...] Knee pain Active Bridger dan MD [address] [facility] , [facility] [address], [place], [address], [place] [facility] 6 14:37:23 Displacement of lumbar intervertebral disc without myelopathy 91580848 Active Bridger dan MD [address] [facility] , [address], [place], [address], [place] [facility] 6 14:37:23 Lumbosacral spondylosis without myelopathy 42975954 Active Bridger dan MD [address] [facility] , [address], [place], [address], [place] [facility] 6 14:37:23 Muscle pain 05057224 Active Bridger dan MD [address] [facility] , [facility] [address], [place], [address], [place] [facility] 6 14:37:23 Problem Notes None recorded. Procedures Surgical History Date Name Laterality Status Provider Name and Address Organization Details Recorded Time 04/01/20 24 Lumbar Epidural steroid injection under fluoroscopic guidance completed Bridger Soriano MD [address] [facility] , [address], [place], [address], [place] [facility] 04/01/2024 16:41:47 12/27/19 24 Genicular Nerve block completed Bridger Soriano MD [address] [facility] [address], [place], [address], [place] [facility] 12/27/2023 16:34:14 12/11/19 24 Lumbar Epidural steroid injection under fluoroscopic guidance completed Bridger Soriano MD [address], [place], [address], [place] [facility] 12/11/2023 13:31:06 10/31/19 24 Genicular Nerve block completed Bridger Soriano MD [address], [place], [address], [place] [facility] 10/31/2023 14:08:55 08/14/19 24 Lumbar Epidural steroid injection under fluoroscopic guidance completed Bridger Soriano MD [address], [place], [address], [place] [facility] 08/14/2023 13:19:15 07/25/19 24 Genicular Nerve block completed Bridger Soirano MD [address], [place], [address], [place] [facility] 07/25/2023 14:26:15 04/12/20 23 Intra-articular Knee Steroid Injection completed Bridger Soriano MD [address], [place], [address], [place] [facility] 04/12/2023 13:55:40 03/21/20 23 Lumbar Epidural steroid injection under fluoroscopic guidance completed Bridger Soriano MD [address], [place], [address], [place] [facility] 03/21/2023 13:28:50 09/01/19 22 Intra-articular Knee Steroid Injection completed Bridger Soriano MD [address] , [address], [place], [address], [place] [facility] 09/02/2021 10:34:04 06/07/19 22 Lumbar Epidural steroid injection under fluoroscopic guidance completed Bridger Soriano MD [address], [place], [address], [place] [facility] 06/08/2021 08:41:03 03/24/20 21 Intra-articular Knee Steroid Injection completed Bridger Soriano MD [address] , [address], [place], [address], [place] [facility] 03/24/2021 15:38:55 02/08/20 21 Intra-articular Knee Steroid Injection completed Bridger Soriano MD [address] , [address], [place], [address], [place] [facility] 02/08/2021 08:53:02 04/12/20 20 Intra-articular Knee Steroid Injection completed Bridger Soriano MD [address] , [address], [place], [address], [place] [facility] 04/12/2020 15:35:24 01/20/20 20 Intra-articular Knee Steroid Injection completed Bridger Soriano MD [address] , [address], [place], [address], [place] [facility] 01/20/2020 15:28:58 11/11/19 16 Intra-articular Knee Steroid Injection completed Bridger Soriano MD [address] , [address], [place], [address], [place] [facility] 11/11/2015 14:57:23 04/16/19 14 Cholecystectomy completed Elena Ramirez [place] - [facility] [...] Name and Address Organization Details Recorded Time 71731 Product containin g penicilli n (product) medicatio n rash Not available Not available 10/28/2015 99164 8001 SNOMED Elena hutchison [place] [facility] 6 15:23:45 83177 Keflex medicatio n Not available Not available Not available 10/28/201564867 7 RxNorm Facia l SweLL ING Judith hutchison [facility] 2 14:17:48 58804 vancomyci n medicatio n Not available Not available Not available 10/28/2015 79640 RxNorm Elena hutchison [facility] 6 15:23:45 48305 Iodinated contrast media (substanc e) medicatio n other Not available Not available 10/28/2015 58818 2004 SNOMED Right arm tremo rs Elena hutchison [facility] 6 15:23:45 Medications Name Sig [...] mcg/0.5 mL intramuscul ar suspension, kit [facility] 04/12 completed Not Available Not Available Not Available FreeStyle Ladonna 14 Day Sensor kit CHANGE EVERY 14 DAYS DIRECTED active Not Available Not Available No t Available Flucelvax Quad (PF) 60 mcg (15 mcg x 4)/0.5 mL IM syringe 12/17 completed Not Available Not Available Not Available Flucelvax Quad (PF) 60 mcg (15 mcg x 4)/0.5 mL IM syringe [facility] 04/12 completed Not Available Not Available [...] 98 % 98 % 122/71 mm[Hg] Judith Diaz [facility] 4 11:34:34 Date Recorded Body height Heart rate Oxygen saturation Oxygen saturation in Arterial blood by Pulse oximetry Pain severity - 0-10 verbal numeric rating [Score] - Reported Systolic And Diastolic Provider Name and Address Organization Details Last Updated DateTime 4 162.56 cm 72 /min 96 % 96 % 8 96/59 mm[Hg] Casie manuel [place] [facility] 4 13:39:02 Date Recorded Body height Heart rate Oxygen saturation Oxygen saturation in Arterial blood by Pulse oximetry Systolic And Diastolic Provider Name and Address Organization Details Last Updated DateTime 4 162.56 cm 80 /min 97 % 97 % 112/62 mm[Hg] Judith Diaz [place] - [facility] [...] 98 % 98 % 127/61 mm[Hg] Judith Diaz [place] [facility] 4 11:08:45 Social History Question Answer Notes LastModified by Organizat ion Details LastModified Time Tobacco Smoking Status Never Smoker Not Available [employer] 01/30/2020 03:16:10 Which Illicit Or Recreational Drugs Have You Used? No [id number] Information not available 01/30/2020 Education [employer] Information not available 10/28/2015 Live Alone Or With Others? Alone Information not available 10/28/2015 Marital Status Informatio n not available 10/28/2015 Sex: Unknown Functional Status Question Answer Note LastModified by Organizat ion Details LastModified Time What is your level of alcohol consumption? None [id number] Information not available 01/30/2020 Are you currently employed? 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 Family History Relationship [...] and Address Organization Details Recorded Time Novel [id number], all formulations 3 completed [facility] 03/19/2023 11:10:15 Past Encounters Encounter ID Performer Location Encounter Start Date Encounter Closed Date Diagnosis/Indication Diagnosis SNOMED-CT Code Diagnosis ICD10 Code Diagnosis IMO Codes Diagnosis Note [id number] Bridger Soriano MD PAIN OFFICE [address] [facility] [address] [place] [address] 10/28/2015 14:37:49 11/07/2015 19:52:53 Displacement of lumbar intervertebral disc without myelopathy 50345624 M51. Knee pain 53630441 M25.5 62 Lumbosacra l spondylosis without myelopathy 51708334 M47.817 Muscle pain 50611891 M79 .1 [id number] Bridger Soriano MD PAIN OFFICE [address] [place] [address] 11/11/2015 13:35:56 11/11/2015 15:14:43 Knee pain 65271851 M25.562 Displaceme nt of lumbar intervertebral disc without myelopathy 20020120 M51. Lumbosacra l spondylosis without myelopathy 83685566 M47.817 Muscle pain 80473528 M79 .1 [id number] Bridger Soriano MD PAIN OFFICE [address] [place] [address] 12/18/2019 13:39:18 12/18/2019 16:05:51 Displacement of lumbar intervertebral disc without myelopathy 20020120. Lumbosacra l spondylosis without myelopathy 86866317 M47.817 Knee pain 58359170 M25.5 62 Muscle pain 77039570 M79 .18 [id number] Bridger Soriano MD PAIN OFFICE [address] [place] [address] 01/20/2020 14:58:58 01/20/2020 16:09:34 Knee pain 46246739 M25.562 Displaceme nt of lumbar intervertebral disc without myelopathy 20020120 M51. Lumbosacra l spondylosis without myelopathy 37069249 M47.817 Muscle pain 48231860 M79 .18 Anxiety 31641573 F41.9 [id number] Bridger Soriano MD PAIN OFFICE [address] [place] [address] 04/12/2020 15:05:36 04/12/2020 15:47:49 Knee pain 69865816 M25.562 Displaceme nt of lumbar intervertebral disc without myelopathy 20020120 M51.26 Lumbosacra l spondylosis without myelopathy 37320186 M47.817 Muscle pain 29233924 M79 .18 Anxiety 41814934 F41.9 [id number] Bridger Soriano MD [facility] [address] [address] 04/26/2020 15:03:26 04/27/2020 11:19:16 Knee pain 18182368 M25.562 Displaceme nt of lumbar intervertebral disc without myelopathy 71534780 M51.26 Lumbosacra l spondylosis without myelopathy 19363016 M47.817 Muscle pain 46068724 M79 .18 Anxiety 64190047 F41.9 [id number] Bridger Soriano MD [facility] [address] [place] [address] 02/07/2021 15:07:39 02/08/2021 08:55:18 Knee pain 69542447 M25.562 Displaceme nt of lumbar intervertebral disc without myelopathy 10899643 M51.26 Lumbosacra l spondylosis without myelopathy 91112812 M47.817 Muscle pain 00638491 M79 .18 Anxiety 13382038 F41.9 [id number] Bridger Soriano MD [facility] [address] [place] [address] 03/24/2021 15:06:19 03/24/2021 15:42:22 Knee pain 05651657 M25.562 Displaceme nt of lumbar intervertebral disc without myelopathy 01415235 M51.26 Lumbosacra l spondylosis without myelopathy 11158227 M47.817 Muscle pain 94456274 M79 .18 Anxiety 72260099 F41.9 [id number] Bridger Soriano MD [facility] [address] [address] 06/07/2021 13:30:02 06/08/2021 08:44:36 Displacement of lumbar intervertebral disc without myelopathy 41959243 M51.26 Lumbosacra l spondylosis without myelopathy 64597902 M47.817 Knee pain 86590227 M25.5 62 Muscle pain 07941974 M79 .18 [id number] Bridger Soriano MD [facility] [address] [place] [address] 08/31/2021 14:13:59 09/02/2021 10:35:50 Knee pain 28547509 M25.562 Displaceme nt of lumbar intervertebral disc without myelopathy 54924611 M51.26 Lumbosacra l spondylosis without myelopathy 31256066 M47.817 Muscle pain 77382745 M79 .18 Anxiety 03071755 F41.9 [id number] Bridger Soriano MD PAIN OFFICE [address] [place] [address] 03/19/2023 10:58:59 03/19/2023 15:21:25 Lumbosacral spondylosis without myelopathy 76738352 M47.817 Displaceme nt of lumbar intervertebral disc without myelopathy 81794577 M51.26 Knee pain 65749754 M25.5 62 Muscle pain 43753919 M79 .18 [id number] Bridger Soriano MD PAIN OFFICE [address] [place] [address] 03/21/2023 13:01:27 03/21/2023 14:25:30 Displacement of lumbar intervertebral disc without myelopathy 88097292 M51.26 Lumbosacra l spondylosis without myelopathy 61981468 M47.817 Knee pain 09939381 M25.5 62 Muscle pain 58783245 M79 .18 Lumbar radiculopathy 128 620663 M54.16 [id number] Bridger Soriano MD PAIN OFFICE [address] [place] [address] 04/12/2023 13:30:59 04/12/2023 13:58:00 Knee pain 86184242 M25.562 Osteoarthr itis of knee 598553730 M17.11 [id number] Bridger Soriano MD PAIN OFFICE [address] [place] [address] 07/25/2023 13:26:45 07/25/2023 14:55:44 Osteoarthritis of knee 590994575 M17.11 [id number] Bridger Soriano MD PAIN OFFICE [address] [place] [address] 08/14/2023 11:28:40 08/14/2023 15:55:58 Displacement of lumbar intervertebral disc without myelopathy 15490235 M51.26 Lumbosacra l spondylosis without myelopathy 07529707 M47.817 Knee pain 58201366 M25.5 62 Muscle pain 93507059 M79 .18 Lumbar radiculopathy 128 701360 M54.16 [id number] Bridger Soriano MD PAIN OFFICE [address] [place] [address] 10/31/2023 13:33:33 10/31/2023 16:13:12 Knee pain 81706175 M25.562 Osteoarthr itis of knee 424747449 M17.12 [id number] Bridger Soriano MD PAIN OFFICE [address] [place] [address] 12/11/2023 13:07:11 12/11/2023 14:55:52 Lumbar radiculopathy 078829106 M54.16 Displaceme nt of lumbar intervertebral disc without myelopathy 20546558 M51.26 [id number] Bridger Soriano MD PAIN OFFICE [address] [facility] [place] [address] 12/27/2023 13:38:10 12/27/2023 17:06:15 Knee pain 40027441 M25.562 Osteoarthr itis of knee 048742384 M17.11 [id number] Bridger Soriano MD PAIN OFFICE [address] [facility] [place] [address] 04/01/2024 11:04:31 04/01/2024 16:59:44 Lumbar radiculopathy 398485106 M54.16 Displaceme nt of lumbar intervertebral disc without myelopathy 71585027 M51.26 Health Concerns Section Related Observation LastModified by Organization Detai ls LastModified Time None Recorded Concern Status LastModified by Organization Details LastModified Time None Recorded Advance Directives Directive None Recorded Payers Insurance Date Sequence Insurance Name Policy Number Policy Tatum Covered Member ID Tatum Member ID Guarantor Name 07/19/2024 1 [place] [employer] [id number] Belgica Barrios Leopold [id number] Belgica Leopold 12/11/2023 1 [place] 111 Belgica Barrios Leopold [id number] Belgica Leopold Notes Date Note Type Note Provider Name and Address Organization Details Recorded Time 08/14/2023 text/html She is here for a lumbar epidural steroid injection under fluoroscopic guidance. Bridger Soriano MD [address], [place], [address], [place] [facility] 08/14/2023 16:05:20 10/31/2023 text/html She is here for a left genicular nerve block under fluoroscopic guidance Bridger Soriano MD [address], [place], [address], [place] [facility] 11/01/2023 10:27:51 12/11/2023 text/html She is here for a lumbar epidural steroid injection under fluoroscopic guidance. Bridger Soriano MD [address], [place], [address], [place] [facility] 12/11/2023 16:04:51 12/27/2023 text/html She is here for a right genicular nerve block under fluoroscopic guidance Bridger Soriano MD [address], [place], [address], [place] [facility] 12/28/2023 09:59:49 04/01/2024 text/html She is here for a lumbar epidural steroid injection under fluoroscopic guidance. Bridger Soriano MD [address] , [address], [place], [address], [place] [facility] 04/01/2024 17:08:43 OBGyn Episode No OBEpisode recorded.
--- OUTSIDE RECORDS SUMMARY | 2025-01-30 17:40 | XMS_ITS | Encounter Summary ---
Author Organization [facility] Address [address] [facility] [address] [place] [address] Phone Care Team Providers Care Carbon Dioxide Operator Name Role Phone Benji Salcedo MD Primary Care Provider [phone] Encounter Details Date Type Department Care Team (Late st Contact Info) Description 12/08/2024 Procedure Pass [facility] [address] [place] [address] Social History Tobacco Use Types Packs/Day Years [...] on filedocumented in this encounter Care Teams Carbon Dioxide Operator Relationship Specialty Start Date End Date Benji Salcedo MD [address] [place] [address] PCP - General Internal Medicine 11/04/24 documented as of this encounter Additional Source Comments The information contained in this document represents components of the legal health record. It is not the complete legal health record.[facility]
--- OUTSIDE RECORDS SUMMARY | 2025-01-30 17:40 | XMS_ITS | Clinical Summary ---
Author Organization [facility] Address [address] [address] Phone Care Team Providers Care Edge Gluer Name Role Phone Benji Salcedo MD Primary Care Provider [phone] Allergies Active Allergy Reactions Criticality Noted Date [...] 024 Active traMADoL (ULTRAM) 50 mg tablet 025 Active triamcinolone acetonide 0.1 % cream triamcinolone acetonide 0.1 % topical cream APPLY BY TOPICAL ROUTE EVERY DAY A THIN FILM TO THE AFFECTED SKIN AREAS Active predniSONE (DELTASONE) 10 MG tablet Active allopurinol (ZYLOPRIM) 100 MG tablet Take 200 mg by mouth daily. 025 Active acetaminophen with codeine (ACETAMINOPHEN-CO DEINE) 120-12 [...] 8:40 PM EDT Emergency [facility] [address] [place] [address] Hrial Wilcox MD Discharge Disposition: Home or Self Care 01/15/2025 Telephone [facility] Orthopedics & Sports Medicine [address] [place] [address] Thais Sesay RN [email or web address] - [facility] 12/08/2024 1:00 PM EDT - 12/08/2024 1:53 PM EDT Surgery [facility] Cardiovascular And Interventional Radiology [address] [place] [address] Bridgett Garcia PA-C Joint Aspiration with Fluoroscopy Guidance 12/08/2024 12:52 PM EDT - 12/08/2024 2:14 PM EDT Hospital Encounter [facility] Cardiovascular And Interventional Radiology [address] [place] [address] Alonzo Garza MD Discharge Disposition: Home or Self Care 12/08/2024 Procedure Pass [facility] Cardiovascular And Interventional Radiology [address] [place] [address] 11/13/2024 1:00 PM EDT Office Visit [facility] Orthopedics & Sports Medicine [address] [place] [address] Jules Erickson MD Osteoarthritis of ankle and foot, unspecified laterality (Primary Dx); Peroneal tendinitis of right lower extremity 11/05/2024 8:45 AM EDT Telemedicine [facility] Orthopedics at [place] [address] [facility] [address] [place] [address] Lam Grimes MD Primary osteoarthritis of left knee (Primary Dx); Primary osteoarthritis of right knee 11/05/2024 Orders Only [facility] Orthopedics & Sports Medicine [address] [place] [address] Shalom Yusuf [place] Right foot pain (Primary Dx) 11/04/2024 Telephone [facility] Department of Orthopaedics [address] [place] [address] Lam Grimes MD 11/03/2024 Ancillary Orders [facility] [address] [place] [address] Unknown, MD Larry from Last 3 Months [...] your housing situation today? I have dayron sing 01/18/2025 How many times have you move [...] 01/16/2023, 01/10/2022, Additional history exists COVID-19 VACCINE ( season) 2024 04/29/2021, 08/23/2020, 08/02/2020 CREATININE LEVEL [...] (01/18/2025 6:25 PM EDT) COLOR BRITTANY(A) Yellow [facility] CLARITY CLOUDY [facility] GLUCOSE Negative Negative [facility] BILI 1+(A) Negative [facility] KETONES Negative Negative [facility] SPECIFIC GRAVITY >1.030 1.005 - 1.030 [facility] BLOOD 3+(A) Negative [facility] PH 5.5 5.0 - 8.0 [facility] Protein-UA 2+(A) Negative [facility] NITRITE Negative Negative [facility] Leukocyte esterase, ur 2+(A) Negative [facility] Urine (Urine) 01/18/2025 6:2 5 PM EDT 01/18/2025 6:43 PM EDT us Angelito Mcrae MD URINE ORDERABLES Final Result [facility] [address] [place] [address] * (ABNORMAL) Urine Culture (01/18/2025 6:25 PM EDT) Special Requests None Reflexed from [id number] 01/18/2025 7:33 PM EDT [facility] Urine Culture >100,000 colony forming units per mL KLEBSIELLA OXYTOCA(A) 01/20/2025 10:29 AM EDT [facility] Urine Culture >100,000 colony forming units per mL BETA HEMOLYTIC STREPTOCOCCUS GROUP B(A) 01/20/2025 10:29 AM EDT [facility] Urine 01/18/2025 6:25 PM EDT 01/18/2025 6:43 [...] MICROBIOLOGY - GENERAL ORDERABL ES Final Result [address] [address] * (ABNORMAL) Urine sediment (01/18/2025 6:25 PM EDT) WBC TOO NUMEROUS TO COUNT(A) NONE SEEN /hpf [facility] RBC 50-100(A) NONE SEEN /hpf [facility] URINE EPITHELIAL 5-10(A) NONE SEEN [facility] MUCUS NONE SEEN NONE SEEN /hpf [facility] BACTERIA 2+(A) NONE SEEN /hpf [facility] 01/18/2025 6:25 PM EDT 01/18/2025 6:43 PM EDT Angelito Mcrae MD URINE ORDERABLES Final Result Performing Organization Address [facility] Co de Phone Number [address] [address] * LFTs (hepatic panel) (01/18/2025 5:19 PM EDT) ALKALINE PHOSPHATASE 92 39 - 117 U/L [facility] TOTAL BILIRUBIN 0.6 0.0 - 1.2 mg/dL [facility] DIRECT BILIRUBIN 0.2 0.0 - 0.2 mg/dL [facility] Bilirubin (Indirect) 0.4 0 - 1.5 mg/dL [facility] AST 18 0 - 37 U/L [facility] ALT 17 0 - 40 U/L [facility] TOTAL PROTEIN 6.6 6.5 - 8.0 g/dL [facility] ALBUMIN 4.2 3.9 - 4.8 g/dL [facility] GLOBULIN 2.4 1 - 4.8 g/dL [facility] A/G Ratio 1.75 1.00 - 4.80 RATIO [facility] Blood 01/18/2025 5:19 PM EDT 01/18/2025 5:23 PM EDT Angelito Mcrae MD LAB BLOOD ORDERABLES Final Resu lt Performing Organization Address [facility] Co de Phone Number [address] [address] * (ABNORMAL) CBC and differential (01/18/2025 5:19 PM EDT) WBC 13.57(H) 4.00 - 11.00 K/uL [facility] RBC 5.55(H) 4.00 - 5.20 M/uL [facility] HGB 15.2 12.0 - 16.0 g/dL [facility] HCT 47.4(H) 36.0 - 46.0 % [facility] PLT 235 150 - 450 K/uL [facility] MCV 85.4 80.0 - 100.0 fL [facility] MCH 27.4 27.0 - 31.0 pg [facility] MCHC 32.1 32.0 - 36.0 g/dL [facility] RDW 13.1 11.5 - 14.5 % [facility] MPV 8.7 8.4 - 12.0 fL [facility] NRBC 0.00 0.00 /100 WBCs [facility] ABSOLUTE NRBC 0.00 0.00 K/uL [facility] DIFF METHOD Auto [facility] NEUTS 77.8(H) 48.0 - 76.0 % [facility] LYMPHS 13.9(L) 18.0 - 41.0 % [facility] MONOS 5.5 4.0 - 11.0 % [facility] EOS 1.8 0.0 - 5.0 % [facility] BASOS 0.7 0.0 - 1.5 % [facility] Granulocytes, immature (%) 0.3 0.0 - 0.9 % [facility] ABSOLUTE NEUTS 10.58(H) 1.92 - 7.60 K/uL [facility] ABSOLUTE LYMPHS 1.88 0.72 - 4.10 K/uL [facility] ABSOLUTE MONOS 0.74 0.16 - 1.10 K/uL [facility] ABSOLUTE EOS 0.24 0.00 - 0.50 K/uL [facility] ABSOLUTE BASOS 0.09 0.00 - 0.15 K/uL [facility] Granulocytes, immature 0.04 0.00 - 0.09 K/uL [facility] Blood 01/18/2025 5:19 PM EDT 01/18/2025 5:23 PM EDT us Angelito Mcrae MD LAB BLOOD ORDERABLES Final Resu lt [facility] [address] [place] [address] * (ABNORMAL) Lipase (01/18/2025 5:19 PM EDT) LIPASE 10(L) 16 - 63 U/L [facility] Blood 01/18/2025 5:19 PM EDT 01/18/2025 5:23 PM EDT Angelito Mcrae MD LAB BLOOD ORDERABLES Final Resu lt Performing Organization Address [facility] Co de Phone Number [address] [address] * (ABNORMAL) Basic metabolic panel (01/18/2025 5:19 PM EDT) SODIUM 143 133 - 146 mmol/L [facility] CHLORIDE 108 96 - 108 mmol/L [facility] POTASSIUM 4.4 3.3 - 5.1 mmol/L [facility] CO2 23 21 - 35 mmol/L [facility] BUN 36(H) 6 - 19 mg/dL [facility] CREATININE 1.40 0.5 - 1.5 mg/dL [facility] GLUCOSE 124(H) 70 - 99 mg/dL [facility] CALCIUM 10.0 8.4 - 10.3 mg/dL [facility] EGFR 40(L) >59 mL/min/1.7 3m2 [facility] Comment:Estimated glomerular filtration rate calculated using the CKD-EPI refit equation. ANION GAP 16 10 - 20 mmol/L [facility] Blood 01/18/2025 5:19 PM EDT 01/18/2025 5:23 PM EDT Angelito Mcrae MD LAB BLOOD ORDERABLES Final Resu lt Performing Organization Address [facility] Co de Phone Number [address] [address] * JOINT ASPIRATION WITH FLUOROSCOPY GUIDANCE (IR) (12/08/2024 1:54 PM EDT) Anatomical Region Laterality Modality X-Ray Angiograph y Narrative 12/08/2024 3:53 PM EDT Impression: 1. Fluoroscopic guided right navicular-cuneiform joint steroid injection/arthrogram. History: Patient with history of right mid-foot pain who presents for right mid-foot joint injection. Target is the navicular-cuneiform joint as this communicates with the 2nd tarsalmetatarsal joint. Dispatcher Service Chief: Bridgett Garcia PA-C Anesthesia: Local anesthesia was [...] consent was obtained from the patient (or market survey representative) after explaining all risks and benefits [...] radiologist for this procedure. Jules Erickson MD [facility] Final Result from Last 3 Months Insurance [facility] FEDERAL MEDICARE A MEDICARE A MEDICARE A [facility] MEDICARE A [facility] MEDICARE A [facility] MEDICARE A [place]IC[place] [address] [address] MEDICARE A [facility] MEDICARE A Care Teams Edge Gluer Relationship Specialty Start Date End Date Benji Salcedo MD [address] [place] [id number] PCP - General Internal Medicine 11/04/24 Additional Source Comments The information contained in this document represents components of the legal health record. It is not the complete legal health record.[facility]
== END 2025-01-30 15:12 | disposition home or self-care (01) ==
LOC: HO.HMGCLDS 15:11
PROVIDERS: PCP Internal Medicine; Visit Provider Internal Medicine Nephrology
DX: R30.0 Dysuria (principal)
CPT/HCPCS: 87086

== ENCOUNTER 2025-02-10 13:59 | Outpatient (AMB) | payer BC, SELFPAY ==
--- OUTSIDE RECORDS SUMMARY | 2024-11-12 06:00 | XMS_ITS ---
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
--- OUTSIDE RECORDS SUMMARY | 2024-11-13 02:31 | XMS_ITS ---
Author Organization [facility] Address [address] [place], [place] [address] Care Team Providers Care Stripper Color Name Role Phone HELENE QUEZADA Primary Care Provider REASON FOR VISIT (2) lab Encounters Encounter Location Date Provider Diagnosis [facility] [address] [place] [address] 11/13/2024 HELENE QUEZADA PLAN OF TREATMENT Next Appt Details Provider Name:HELENE QUEZADA , 04/17/2025 03:15:00 PM, [address] [place], [address],
--- OUTSIDE RECORDS SUMMARY | 2024-11-18 09:15 | XMS_ITS ---
Author Organization [facility] Address [address] [place], [place] [id number] Care Team Providers Care Bander And Cellophaner Machine Helper Name Role Phone HELENE QUEZADA Primary Care Provider ALLERGIES Allergen (clinical drug ingredient) Drug/Non Drug Allergy documented on EMR Reaction Allergy Type Onset Date Status KEFLEX (uncoded) Unknown Allergy Act maddy tramadol traMADol HCl nightmares Drug Allergy Act mdady doxycycline Doxycycline oral rash Drug Allergy Act maddy Iodinated contrast media (substance) Iodinated Diagnostic Agents Unknown Drug Allergy Active Penicillin Unknown Drug Allergy Active vancomycin Vancomycin Unknown Drug Allergy Activ e 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 Medication SIG (Take, Route, [...] a day for 30 days Active Nystatin 795936 UNIT/GM 1 application Ex ternally Twice a [...] 11/18/2024 Encounters Encounter Location Date Provider Diagnosis [facility] [address] [place] [address] 11/18/2024 HELENE SUNNYVALE Right foot pain M79.671 ; Essential (primary) [...] Name:HELENE QUEZADA , 04/17/2025 03:15:00 PM, [address] [place], [address], Progress Notes * Examination Category Sub-Category Detail Notes Category Not es General Examination Heart: RSR, normal S1S2 Lungs: clear to auscultatio n Extremities: Patient saw Dr Jordyn kwok at [facility] - orthopedist. He recommended injection in foot [...] is not wearing. She saw Dre in [facility] - wants to do injection Dec 08 - Dr Conteh recommended PT
--- OUTSIDE RECORDS SUMMARY | 2024-11-18 11:55 | XMS_ITS ---
Author Organization [facility] Address [address] [place], [place] [id number] Care Team Providers Care Environmental Engineering Professor Name Role Phone HELENE QUEZADA Primary Care Provider [phone] REASON FOR VISIT Acetaminophen-Codeine 300-30 MG Tablet MEDICATIONS Medication SIG (Take, Route, Frequency, Duration) Notes Start Date End Date Status Acetaminophen-Codeine 300-30 MG 1 tablet as needed Orally 3 times daily for 7 days 11/18/2024 Active Encounters Encounter Location Date Provider Diagnosis [facility] [address] [place] [address] 11/18/2024 HELENE QUEZADA Right foot pain M79.671 ASSESSMENTS Encounter Date Diagnosis Assessment Notes Treatment Notes Treatment Clinical Notes Section Notes 11/18/2024 Right foot pain (ICD-10 - M79.671) PLAN OF TREATMENT Medication Medication Name Sig Start Date Stop Date Notes Acetaminophen-Codeine 300-30 MG 1 tablet as needed Orally 3 times daily for 7 days 11/18/2024 Next Appt Details Provider Name:HELENE QUEZADA , 04/17/2025 03:15:00 PM, [address] [place], [address],
--- OUTSIDE RECORDS SUMMARY | 2024-11-19 10:24 | XMS_ITS ---
Author Organization [facility] Address [address] [place], [place] [id number] Care Team Providers Care Therapeutic Case Manager Name Role Phone HELENE QUEZADA Primary Care Provider REASON FOR VISIT (FYI) Medication Request Encounters Encounter Location Date Provider Diagnosis [facility] [address] [place] [address] 11/19/2024 HELENE QUEZADA PLAN OF TREATMENT Next Appt Details Provider Name:HELENE QUEZADA , 04/17/2025 03:15:00 PM, [address] [place], [address],
--- OUTSIDE RECORDS SUMMARY | 2024-12-16 10:56 | XMS_ITS ---
Author Organization [facility] Address [address] [place], [place] [id number] Care Team Providers Care Automotive Hardware Engineer Name Role Phone HELENE QUEZADA Primary Care Provider [phone] REASON FOR VISIT Update for MD Encounters Encounter Location Date Provider Diagnosis [facility] [address] [place] [address] 12/16/2024 HELENE QUEZADA PLAN OF TREATMENT Next Appt Details Provider Name:HELENE QUEZADA , 04/17/2025 03:15:00 PM, [address] [place], [address],
--- OUTSIDE RECORDS SUMMARY | 2024-12-22 10:45 | XMS_ITS ---
Author Organization [facility] Address [address] [place], [place] [phone] Care Team Providers Care Tableau Administrator Name Role Phone HELENE QUEZADA Primary Care Provider [phone] REASON FOR VISIT 41/ 1mo Encounters Encounter Location Date Provider Diagnosis [facility] [address] [place] [address] 12/22/2024 HELENE QUEZADA PLAN OF TREATMENT Next Appt Details Provider Name:HELENE QUEZADA , 04/17/2025 03:15:00 PM, [address] [place], [address],
--- OUTSIDE RECORDS SUMMARY | 2025-01-19 11:51 | XMS_ITS ---
Author Organization [facility] Address [address] [place], [place] [id number] Care Team Providers Care Funeral Arrangement Director Name Role Phone HELENE QUEZADA Primary Care Provider REASON FOR VISIT (2) hospital yesterday Encounters Encounter Location Date Provider Diagnosis [facility] [address] [place] [address] 01/19/2025 HELENE QUEZADA PLAN OF TREATMENT Next Appt Details Provider Name:HELENE QUEZADA , 04/17/2025 03:15:00 PM, [address] [place], [address],
--- OUTSIDE RECORDS SUMMARY | 2025-01-20 10:15 | XMS_ITS ---
Author Organization [facility] Address [address] [place] [place], [place] [id number] Care Team Providers Care Range Feeder Name Role Phone HELENE QUEZADA Primary Care [...] vancomycin Vancomycin Unknown Drug Allergy Activ e RESULTS Component Value Reference Range Notes CT Abdomen & Pelvis: Renal S tone Protocol Reviewed date:01/26/2025 12:28:28 PM Interpretation: Performing Lab: Notes/Report: REASON FOR VISIT ER f/u abnormal results, [...] as directed for 90 days Active Nystatin 979953 UNIT/GM 1 application Ex ternally Twice a [...] chronic kidney disease (CKD) (N18.31) Active confirmed 992615113 VITAL SIGNS Height 62.5 in 01/20/2025 Weight 188.4 lbs 01/20/2025 Blood pressure systolic 124 mm Hg 01/21/20 25 Blood pressure diastolic 70 mm Hg 025 BMI 33.91 kg/m2 01/20/2025 Encounters Encounter Location Date Provider Diagnosis [facility] [address] [place] [address] 01/20/2025 [facility] Right flank pain R10.A1 ; Acute UTI [...] R10.A1) 1. UTI: Review of culture from [facility] shows Klebsiella which is sensitive to her current Macrodantin. Will continue same 2. Right flank pain with gross hematuria: Question underlying stone as a source of infection. Will check a CT with renal stone protocol. Further recommendations pending results 3. Hypertension: Stable on current amlodipine/olmesar wood and metoprolol. Will continue same 4. Right foot pain: Finally improved after cortisone injection with podiatry in [place]. Underlying degenerative arthritis appears to have been [...] N39.0) 1. UTI: Review of culture from [facility] [...] improved after cortisone injection with podiatry in [place]. Underlying degenerative arthritis appears to have been the source of her symptoms. Will follow 5. Stage IIIa chronic kidney disease: Stable on current medical therapy. Knows to avoid NSAIDs. She has upcoming follow-up with Dr. Patton from nephrology 6. Type 2 diabetes mellitus: Improved on Ozempic. Will continue present dosing 01/20/2025 Gross hematuria (ICD-10 - R31.0) 1. UTI: Review of culture from [facility] shows Klebsiella which is sensitive to her current Macrodantin. Will continue same 2. Right flank pain with gross hematuria: Question underlying stone as a source of infection. Will check a CT with renal stone protocol. Further recommendations pending results 3. Hypertension: Stable on current amlodipine/olmesar wood and metoprolol. Will continue same 4. Right foot pain: Finally improved after cortisone injection with podiatry in [place]. Underlying degenerative arthritis appears to have been [...] improved after cortisone injection with podiatry in [place]. Underlying degenerative arthritis appears to have been [...] 1. UTI: Review of culture from [facility] shows Klebsiella which is sensitive to her current Macrodantin. Will continue same 2. Right flank pain with gross hematuria: Question underlying stone as a source of infection. Will check a CT with renal stone protocol. Further recommendations pending results 3. Hypertension: Stable on current amlodipine/olmesar wood and metoprolol. Will continue same 4. Right foot pain: Finally improved after cortisone injection with podiatry in [place]. Underlying degenerative arthritis appears to have been [...] improved after cortisone injection with podiatry in [place]. Underlying degenerative arthritis appears to have been [...] E11.9) 1. UTI: Review of culture from [facility] shows Klebsiella which is sensitive to [...] improved after cortisone injection with podiatry in [place]. Underlying degenerative arthritis appears to have been [...] a day Next Appt Details Provider Name:HELENE SANDOVALFORD , 04/17/2025 03:15:00 PM, [address] [place] [address], [phone], Progress Notes * Examination Category Sub-Category Detail [...] Category Not es General Patient went to [facility] Sunday - with hematuria - wasd dx with URI and started on macrodantin. She reports hematuria stopped but still has pelvic pressure and right flank pain. No fever or chills. Did not have CT scan in ED. Has had some chills.
--- OUTSIDE RECORDS SUMMARY | 2025-01-26 08:27 | XMS_ITS ---
Author Organization [facility] Address [address] [place], [place] [id number] Care Team Providers Care Ticket Collector Name Role Phone HELENE QUEZADA Primary Care Provider [phone] REASON FOR VISIT (FYI) CT Scan Encounters Encounter Location Date Provider Diagnosis [facility] [address] [place] [address] 01/26/2025 HELENE QUEZADA PLAN OF TREATMENT Next Appt Details Provider Name:HELENE QUEZADA , 04/17/2025 03:15:00 PM, [address] [place], [address],
[2025-02-10 14:07] VITALS: BMI 31.8
--- NOTE | 2025-02-10 14:07 | A.OFFVIS_ITS ---
Vital Signs 02/10/25 14:07 Height 5 ft 4 in Weight 185 lb BMI 31.8 Intake Visit Reasons: Tinea unguium Intake Note: Belgica is a 69 year old female who presents to the office today as a new patient visit referred by her Rail Car Unloader Dr. Hook for Tinea unguium. Pt states the fungus has been going on for years and she has concerns of her athlete foot possibly getting infected. She reports pain in her left hallux and due to her kidney disease diagnosis she has not tried any fungal treatment. Allergies Iodinated Contrast Media (IV CONTRAST) Allergy (Severe, Verified 02/10/25 14:15) SEIZURE vancomycin (VANCOMYCIN) Allergy (Severe, Verified 02/10/25 14:15) ITCHING, SOB doxycycline (DOXYCYCLINE) Allergy (Intermediate, Verified 02/10/25 14:15) DIFFICULTY SWALLOWING Penicillins (PENICILLINS) Allergy (Intermediate, Verified 02/10/25 14:15) RASH cephalexin (From KEFLEX) Allergy (Unknown, Verified 02/10/25 14:15) RASH Sulfa (Sulfonamide Antibiotics) (SULFA (SULFONAMIDE ANTIBIOTICS)) Allergy (Unknown, Verified 02/10/25 14:15) UNKNOWN HPI HPI Tinea unguium: Details: 69-year-old female with past medical history diabetes mellitus type 2, CKD stage 3, PVD, right knee osteoarthritis, presents with left big toe pain, bilateral ankle pain, and left foot fungal infection. She notes a long history of right foot pain starting since July of 2024. She had multiple x-rays MRIs and a bone scan and eventually had an injection to the top of her right foot, which helped to relieve her pain. She states her right knee has significant osteoarthritis, she was undergoing gel shots however due to insurance restrictions, she has no longer receiving an injections. Now she has significant knee pain, and believes she is walking differently and putting more stress to her ankles. [facility] Medical History GINA (obstructive sleep apnea) Gout On beta kamar at home Chronic headaches Splenic artery aneurysm Meningioma HTN (hypertension) Surgical History Hx laparoscopic cholecystectomy (~2013) History of hysterectomy History of History of colonoscopy (~08/2018) Family History Father Family hx of colon cancer Mother Hx of breast cancer Paternal Grandmother Colon cancer Social History Household Members: None Housing: House Alcohol intake: never Patient Tobacco Use Status: Never used Tobacco e-Cigarette/Vaping Use: Never Used service: No Cognitive needs: No Hearing needs: No Vision needs: No Physical Exam Vital Signs: BMI result Body Mass Index 31.8 Extrem Other: *Bilateral Lower Extremity Focused Diabetic Foot Exam Vascular: DP/PT 2/4, CFT<3s to digits, TG warm to cool, no pedal edema, pedal hair present Derm: Skin: No open lesions, ulcerations, or calluses. Interdigital spaces: Left 4th interspace maceration. Nails: Elongated thickened dystrophic nails x10, with left hallux nail 70% lifted/detached. Neuro: Darwin-joana monofilament (10g) test 10/10 intact to right foot, 10/10 intact to left foot. Msk: Deformities: No evidence of hammertoes, bunions, Charcot changes, or other structural abnormalities. Muscle strength: 5/5 in all muscle groups. Gait: Normal, no antalgic or steppage gait observed. Footwear Assessment: Shoes inspected; appropriate fit, no excessive wear, or foreign objects noted. Office Procedures AMB Debridement/Avulsion Podia Details: Procedure: Nail debridement Location: 10 nails, bilateral feet Anesthesia: N/A Description: The affected toenails were cleansed with an antiseptic solution. Using sterile nail nippers and a rotary telma, dystrophic and mycotic nail material was carefully debrided and reduced in thickness. Care was taken to avoid trauma to the surrounding skin and nail bed. All debris was removed as tolerated. The area was inspected for signs of infection or ulceration. Patient tolerated the procedure well without complications. Tolerance: Patient tolerated procedure well, no immediate complications. Class B findings as per physical exam findings above. The patient has a diagnosis of diabetes mellitus and presents with elongated, thickened toenails. Due to underlying diabetic neuropathy and mild vascular disease findings, the patient is at increased risk for complications such as ulceration, infection, and difficulty with self-care. Debridement of elongated toenails is medically necessary to prevent development of pressure-related lesions, reduce risk of secondary infection, and maintain foot health in high- risk comorbidities. 28690-Avpvhtjxefk of Nail 6+ Procedure code (CPT) selection complete Assessment & Plan Assessment & Plan (1) Type 2 diabetes mellitus: Code(s): E11.9 - Type 2 diabetes mellitus without complications Category: Medical Qualifiers: Diabetes mellitus skilled nursing insulin use: with oysterman use Diabetes mellitus complication status: with neurologic complications Plan: Risk Stratification: No current ulceration, infection, or pre-ulcerative lesion. No loss of protective sensation or peripheral arterial disease. No plans for further testing/referrals for non-invasive vascular studies. Patient is at low risk for diabetic foot complications at this time. Recommendations: Continue routine foot care and daily self-inspection. Recommend moisturizing daily. Recommend supportive proper fitting shoe-wear. The patient may require diabetic shoes in the future. Reinforced diabetic foot education and risks from peripheral neuropathy. (2) Posterior tibial tendinitis, right leg: Code(s): M76.821 - Posterior tibial tendinitis, right leg Category: Medical Plan: * Handouts dispense for range of motion and stretching for her bilateral ankle tendonitis. * Recommended ankle compression sleeve when she is walking for extended periods of time. * Recommended power step high arch orthotics. May require custom orthotics * She was recommended to retrieve her bilateral feet x-rays and MRI right foot be reviewed at her next visit (3) Peroneal tendinitis, left leg: Code(s): M76.72 - Peroneal tendinitis, left leg Category: Medical Plan: * Offered cortisone injection, which may be in his started at the next visit pending her treatment plan for her right knee. (4) Tinea unguium: Code(s): B35.1 - Tinea unguium Category: Medical Plan: * Nail biopsy left hallux performed * Rx clotrimazole left 4th interspace tinea pedis Orders: Orders Fungus Cult Hair/Skin/Nail Today B35.1 - Tinea unguium Surgical Today B35.1 - Tinea unguium AMB Debridement/Avulsion Podiatry Today B35.1 - Tinea unguium Coding Level of Care Code New Pt Level 4 (99017) Diagnoses Type 2 diabetes mellitus E11.9 Diabetes mellitus skilled nursing insulin use: with skilled nursing use Diabetes mellitus complication status: with neurologic complications Posterior tibial tendinitis, right leg M76.821 Peroneal tendinitis, left leg M76.72 Tinea unguium B35.1 CPT Codes Skin Debridement - CPT: 86883-Hxebuccelxz of Nail 6+ ([id number]) Time Spent (min) 45
--- OUTSIDE RECORDS SUMMARY | 2025-02-10 18:20 | XMS_ITS | Encounter Summary ---
Author Organization [facility] Address [address] [facility] [address] [place] [address] Phone Care Team Providers Care Knit Goods Press Hand Name Role Phone Benji Salcedo MD Primary Care Provider [phone] Benji Salcedo MD Primary Care Provider [phone] Encounter Details Date Type Department Care Team (Late st Contact Info) Description 04/28/2024 Ancillary Orders [facility] Orthopedics at [place] [id number] [facility] [address] [place] [address] Lam Grimes MD [address] [place] [address], [address] [place] [address] [email or web address] Pain (Primary Dx) Social History [...] as of this encounter Plan of Treatment Upcoming Encounters Date Type Department Care Team (Late st Contact Info) Description 02/18/2025 3:00 PM EST Office Visit [facility] Orthopedics & Sports Medicine [address] [place] [address] Demetrio Hunt MD [address] [place] [address] Orthopedics & Sports Medicine, [facility] [place] [address] [email or web address] documented as of this encounter Results * [...] degenerative changes, severe in the medial compartments. us Lam Grimes MD IMG XR LOWER EXTREMITY Final Re sult documented in this encounter Visit Diagnoses Diagnosis Pain Generalized pain Pain- Primary Generalized pain documented in this encounter Care Teams Knit Goods Press Hand Relationship Specialty Start Date End Date Benji Salcedo MD [address] [place] [address] PCP - General Internal Medicine 12/29/21 11/03/24 Benji Salcedo MD [address] [place] [address] PCP - General Internal Medicine 11/04/24 documented as of this encounter Additional Source Comments The information contained in this document represents components of the legal health record. It is not the complete legal health record.[facility]
--- OUTSIDE RECORDS SUMMARY | 2025-02-10 18:20 | XMS_ITS ---
[place] [address] Home Phone Email Address Preferred Language en Marital Status Gnosticist Affiliation Unknown Race White Ethnic Group Unknown Author Organization [facility] PA[facility] [place] [address] Care Team Providers Care Blueprint Blocker Name Role Phone HELENE QUEZADA Primary Care Provider [phone] Assessment Encounter Date Assessment Date Assessment LastModified [...] Last Modified Time Details Appointments PROCEDURE 2024 11:30A M Bridger dan MD Not available Not available Not available Lab None recorded. Referral None recorded. Procedures None recorded. Surgeries None recorded. Imaging None recorded. Medication Orders None recorded. Patient TargetsNo targets recorded. Patient Instructions Encounter Date Encounter Id Patient Instructions Last Modified By Organization Details Last Modified Time 10/31/2023 [id number] She was advised against bed rest lasting longer than four days and to continue activities as tolerated. [email or web address] Not available 10/31/2023 14:07:55 12/11/2023 [id number] She is a diabetic . Blood sugar levels may temporarily increase after steroid injections. She was advised to check blood glucose levels three times a day post procedure. If levels are above 250, she was advised to contact the PCP. [email or web address] Not available 12/11/2023 13:32:29 12/27/2023 [id number] She was advised against bed rest lasting longer than four days and to continue activities as tolerated. [email or web address] Not available 12/27/2023 16:33:20 04/01/2024 [id number] She is a diabetic . Blood sugar levels may temporarily increase after steroid injections. She was advised to check blood glucose levels three times a day post procedure. If levels are above 250, she was advised to contact the PCP. [email or web address] Not available 04/01/2024 16:41:21 Reason for Referral None Reported. Problems Name Problem SNOMED Code Status Onset Date Resolution Date Notes Provider Name and Address Organization Details Recorded Time Knee pain Active Bridger dan MD [address] , [address], [place], [address], [place] [facility] 6 14:37:23 Displacement of lumbar intervertebral disc without myelopathy 20800927 Active Bridger dan MD [address] , [address], [place], [address], [place] [facility] 6 14:37:23 Lumbosacral spondylosis without myelopathy 84356199 Active Bridger dan MD [address] , [address], [place], [address], [place] [facility] 6 14:37:23 Muscle pain 89549395 Active Bridger dan MD [address] , [address], [facility] [place], [address], [place] [facility] 6 14:37:23 Problem Notes None recorded. Procedures Surgical History Date Name Laterality Status Provider Name and Address Organization Details Recorded Time 04/01/20 24 Lumbar Epidural steroid injection under fluoroscopic guidance completed Bridger Soriano MD [address] , [address], [facility] [place], [address], [place] [facility] 04/01/2024 16:41:47 12/27/19 24 Genicular Nerve block completed Bridger Soriano MD [address] , [address], [place], [address], [place] [facility] 12/27/2023 16:34:14 12/11/19 24 Lumbar Epidural steroid injection under fluoroscopic guidance completed Bridger Soriano MD [address] , [address], [place], [address], [place] [facility] 12/11/2023 13:31:06 07/17/20 24 Genicular Nerve block completed Bridger Soriano MD [address] , [address], [place], [address], [place] [facility] 10/31/2023 14:08:55 08/14/19 24 Lumbar Epidural steroid injection under fluoroscopic guidance completed Bridger Soriano MD [address] , [address], [place], [address], [place] [facility] 08/14/2023 13:19:15 07/25/19 24 Genicular Nerve block completed Bridger Soriano MD [address] , [address], [place], [address], [place] [facility] 07/25/2023 14:26:15 04/12/20 23 Intra-articular Knee Steroid Injection completed Bridger Soriano MD [address] , [address], [place], [address], [place] [facility] 04/12/2023 13:55:40 03/21/20 23 Lumbar Epidural steroid injection under fluoroscopic guidance completed Bridger Soriano MD [address] , [address], [place], [address], [place] [facility] 03/21/2023 13:28:50 09/01/19 22 Intra-articular Knee Steroid Injection completed Bridger Soriano MD [address] , [address], [place], [address], [place] [facility] 09/02/2021 10:34:04 06/07/19 22 Lumbar Epidural steroid injection under fluoroscopic guidance completed Bridger Soriano MD [address] , [address], [place], [address], [place] [facility] 06/08/2021 08:41:03 03/24/20 21 Intra-articular Knee Steroid Injection completed Bridger Soriano MD [address] , [address], [place], [address], [place] [facility] 03/24/2021 15:38:55 02/08/20 21 Intra-articular Knee Steroid Injection completed Bridger Soriano MD [address] , [address], [place], [address], [place] [facility] 02/08/2021 08:53:02 04/12/20 20 Intra-articular Knee Steroid Injection completed Bridger Soriano MD [address] , [address], [place], [address], [place] [facility] 04/12/2020 15:35:24 01/20/20 20 Intra-articular Knee Steroid Injection completed Bridger Soriano MD [address] , [address], [place], [address], [place] [facility] 01/20/2020 15:28:58 11/11/19 16 Intra-articular Knee Steroid Injection completed Bridger Soriano MD [address] [facility] , [address], [place], [address], [place] [facility] 11/11/2015 14:57:23 04/16/19 14 Cholecystectomy completed Elena Mckeonzier [facility] 10/28/2015 15:23:45 Hysterectomy completed Elena Mckeonzier [facility] 10/28/2015 15:23:45 Caesarean Section completed Elena Mckeonzier [facility] 10/28/2015 15:23:45 Imaging Results None recorded. Procedure Notes None recorded. Medical Equipment None Reported. Allergies Allergen ID Allergen Name Allergen Category Reaction Reaction Severity Criticality Documentation Date Start Date Code Code System Note Provider Name and Address Organization Details Recorded Time 88167 Product containin g penicilli n (product) medicatio n rash Not available Not available 10/28/2015 94255 8001 SNOMED Elena Mckeonzier null, [place] [facility] 6 15:23:45 76268 Keflex medicatio n Not available Not available Not available 10/28/2015 7 RxNorm Facia l DawitLL LEOBARDO hutchison, [place] [facility] 2 14:17:48 46582 vancomyci n medicatio n Not available Not available Not available 10/28/2015 13247 RxNorm Elena Ramirez null, [place] [facility] 6 15:23:45 92089 Iodinated contrast media (substanc e) medicatio n other Not available Not available 10/28/2015 70162 2003 SNOMED Right arm tremo rs Elena hutchison, [place] [facility] [...] Not Available azithromyci n 250 mg tablet TAKE 2 TABLETS BY MOUTH TODAY, THEN TAKE 1 TABLET DAILY FOR 4 DAYS DIRECTED 02/01 completed Not Available Not Available Not Available [...] completed Not Available Not Available Not Available oxycodone 5 mg tablet TAKE 1 TABLET BY MOUTH EVERY 4 TO 6 HOURS active Not Available Not Available No t Available cyclobenzap rine 5 mg tablet 12/17 [...] mcg/0.5 mL intramuscul ar suspension, kit [facility] 04/12 completed Not Available Not Available Not Available FreeStyle Ladonna 14 Day Sensor kit CHANGE EVERY 14 DAYS DIRECTED active Not Available Not Available No t Available Flucelvax Quad (PF) 60 mcg (15 mcg x 4)/0.5 mL IM syringe 12/17 completed Not Available Not Available Not Available Flucelvax Quad (PF) 60 mcg (15 mcg x 4)/0.5 mL IM syringe [facility] 04/12 completed Not Available Not [...] 97 % 97 % 112/62 mm[Hg] Judith Emily [facility] 4 13:10:01 [...] Or Recreational Drugs Have You Used? No [id number] Information not available 01/30/2020 Education [employer] Information not available 10/28/2015 Live Alone Or With Others? Alone Information not available 10/28/2015 Marital Status Informatio n not available 10/28/2015 Sex: Unknown Functional Status Question Answer Note LastModified by Organizat ion Details LastModified Time What is your level of alcohol consumption? None [id number] Information not available 01/30/2020 Are you currently employed? Yes [id number] Information not available 01/30/2020 What is your [...] and Address Organization Details Recorded Time Novel [id number], all formulations 3 completed [facility] 03/19/2023 11:10:15 Past Encounters Encounter ID Performer Location Encounter Start Date Encounter Closed Date Diagnosis/Indication Diagnosis SNOMED-CT Code Diagnosis ICD10 Code Diagnosis IMO Codes Diagnosis Note [id number] Bridger Soriano MD PAIN OFFICE [address] [facility],[address] [place] [address] 10/28/2015 14:37:49 11/07/2015 19:52:53 Displacement of lumbar intervertebral disc without myelopathy 73851317 M51.26 Knee pain 25899803 M25.5 62 Lumbosacra l spondylosis without myelopathy 70836137 M47.817 Muscle pain 74001850 M79 .1 [id number] Bridger Sorinao MD PAIN OFFICE [address] [place] [address] 11/11/2015 13:35:56 11/11/2015 15:14:43 Knee pain 05169080 M25.562 Displaceme nt of lumbar intervertebral disc without myelopathy 44980690 M51.26 Lumbosacra l spondylosis without myelopathy 32308021 M47.817 Muscle pain 06674655 M79 .1 [id number] Bridger Soriano MD PAIN OFFICE [address] [place] [address] 12/18/2019 13:39:18 12/18/2019 16:05:51 Displacement of lumbar intervertebral disc without myelopathy 30477419 M51.26 Lumbosacra l spondylosis without myelopathy 48630565 M47.817 Knee pain 10723422 M25.5 62 Muscle pain 74423694 M79 .18 [id number] Bridger Soriano MD PAIN OFFICE [address] [place] [address] 01/20/2020 14:58:58 01/20/2020 16:09:34 Knee pain 41717323 M25.562 Displaceme nt of lumbar intervertebral disc without myelopathy 32083421 M51.26 Lumbosacra l spondylosis without myelopathy 13591102 M47.817 Muscle pain 96654697 M79 .18 Anxiety 16042712 F41.9 [id number] Bridger Soriano MD PAIN OFFICE [address] [place] [address] 04/12/2020 15:05:36 04/12/2020 15:47:49 Knee pain 42262469 M25.562 Displaceme nt of lumbar intervertebral disc without myelopathy 29794122 M51.26 Lumbosacra l spondylosis without myelopathy 27795369 M47.817 Muscle pain 76968308 M79 .18 Anxiety 76473930 F41.9 [id number] Bridger Soriano MD PAIN OFFICE [address] [place] [address] 04/26/2020 15:03:26 04/27/2020 11:19:16 Knee pain 97544305 M25.562 Displaceme nt of lumbar intervertebral disc without myelopathy 17257566 M51.26 Lumbosacra l spondylosis without myelopathy 98161885 M47.817 Muscle pain 19215462 M79 .18 Anxiety 24473099 F41.9 [id number] Bridger Soriano MD PAIN OFFICE [address] [facility] [place] [address] 02/07/2021 15:07:39 02/08/2021 08:55:18 Knee pain 19521286 M25.562 Displaceme nt of lumbar intervertebral disc without myelopathy 20020120 M51. Lumbosacra l spondylosis without myelopathy 50630217 M47.817 Muscle pain 82182916 M79 .18 Anxiety 05883757 F41.9 [id number] Bridger Soriano MD PAIN OFFICE [address] [place] [address] 03/24/2021 15:06:19 03/24/2021 15:42:22 Knee pain 72075841 M25.562 Displaceme nt of lumbar intervertebral disc without myelopathy 20020120 M51.26 Lumbosacra l spondylosis without myelopathy 55311012 M47.817 Muscle pain 18670889 M79 .18 Anxiety 94772645 F41.9 [id number] Bridger Soriano MD PAIN OFFICE [address] [place] [address] 06/07/2021 13:30:02 06/08/2021 08:44:36 Displacement of lumbar intervertebral disc without myelopathy 64625126 M51.26 Lumbosacra l spondylosis without myelopathy 82029939 M47.817 Knee pain 65049025 M25.5 62 Muscle pain 79770464 M79 .18 [id number] Bridger Soriano MD PAIN OFFICE [address] [facility] [place] [address] 08/31/2021 14:13:59 09/02/2021 10:35:50 Knee pain 39460491 M25.562 Displaceme nt of lumbar intervertebral disc without myelopathy 30291576 M51.26 Lumbosacra l spondylosis without myelopathy 61706124 M47.817 Muscle pain 45843236 M79 .18 Anxiety 06391657 F41.9 [id number] Bridger Soriano MD PAIN OFFICE [address] [place] [address] 03/19/2023 10:58:59 03/19/2023 15:21:25 Lumbosacral spondylosis without myelopathy 03500320 M47.817 Displaceme nt of lumbar intervertebral disc without myelopathy 99359115 M51.26 Knee pain 89591857 M25.5 62 Muscle pain 08787661 M79 .18 [id number] Bridger Soriano MD PAIN OFFICE [address] [place] [address] 03/21/2023 13:01:27 03/21/2023 14:25:30 Displacement of lumbar intervertebral disc without myelopathy 94515976 M51.26 Lumbosacra l spondylosis without myelopathy 36474244 M47.817 Knee pain 73044661 M25.5 62 Muscle pain 24829183 M79 .18 Lumbar radiculopathy 128 107291 M54.16 [id number] Bridger Soriano MD PAIN OFFICE [address] [place] [address] 04/12/2023 13:30:59 04/12/2023 13:58:00 Knee pain 69432448 M25.562 Osteoarthr itis of knee 648958427 M17.11 [id number] Bridger Soriano MD PAIN OFFICE [address] [place] [address] 07/25/2023 13:26:45 07/25/2023 14:55:44 Osteoarthritis of knee 278412470 M17.11 [id number] Bridger Soriano MD PAIN OFFICE [address] [place] [address] 08/14/2023 11:28:40 08/14/2023 15:55:58 Displacement of lumbar intervertebral disc without myelopathy 45832327 M51.26 Lumbosacra l spondylosis without myelopathy 28095953 M47.817 Knee pain 26349774 M25.5 62 Muscle pain 77951081 M79 .18 Lumbar radiculopathy 128 619529 M54.16 [id number] Bridger Soriano MD PAIN OFFICE [address] [facility] [place] [address] 10/31/2023 13:33:33 10/31/2023 16:13:12 Knee pain 29752512 M25.562 Osteoarthr itis of knee 197300466 M17.12 [id number] Bridger Soriano MD PAIN OFFICE [address] [facility] [place] [address] 12/11/2023 13:07:11 12/11/2023 14:55:52 Lumbar radiculopathy 695805002 M54.16 Displaceme nt of lumbar intervertebral disc without myelopathy 54338103 M51.26 [id number] Bridger Soriano MD PAIN OFFICE [address] [facility] [place] [address] 12/27/2023 13:38:10 12/27/2023 17:06:15 Knee pain 21434566 M25.562 Osteoarthr itis of knee 002918273 M17.11 [id number] Bridger Soriano MD PAIN OFFICE [address] [facility] [place] [address] 04/01/2024 11:04:31 04/01/2024 16:59:44 Lumbar radiculopathy 258006309 M54.16 Displaceme nt of lumbar intervertebral disc without myelopathy 88086238 M51.26 Health Concerns Section Related Observation LastModified by Organization Detai ls LastModified Time None Recorded Concern Status LastModified by Organization Details LastModified Time None Recorded Advance Directives Directive None Recorded Payers Insurance Date Sequence Insurance Name Policy Number Policy Tatum Covered Member ID Tatum Member ID Guarantor Name 02/01/2025 1 [place] [id number] Belgica Romanor [id number] Belgica Pierce 12/11/2023 1 [place] 111 Belgica Barrios [place] [id number] Belgica Destin Notes Date Note Type Note Provider Name and Address Organization Details Recorded Time 08/14/2023 text/html She is here for a lumbar epidural steroid injection under fluoroscopic guidance. Bridger Soriano MD [address] , [address], [place], [address], [place] [facility] 08/14/2023 16:05:20 10/31/2023 text/html She is here for a left genicular nerve block under fluoroscopic guidance Bridger Soriano MD [address] , [address], [place], [address], [place] [facility] 11/01/2023 10:27:51 12/11/2023 text/html She is here for a lumbar epidural steroid injection under fluoroscopic guidance. Bridger Soriano MD [address] , [address], [place], [address], [place] [facility] 12/11/2023 16:04:51 12/27/2023 text/html She is here for a right genicular nerve block under fluoroscopic guidance Bridger Soriano MD [address] , [address], [place], [address], [place] [facility] 12/28/2023 09:59:49 04/01/2024 text/html She is here for a lumbar epidural steroid injection under fluoroscopic guidance. Bridger Soriano MD [address] , [address], [place], [address], [place] [facility] 04/01/2024 17:08:43 OBGyn Episode No OBEpisode recorded.
--- OUTSIDE RECORDS SUMMARY | 2025-02-10 18:20 | XMS_ITS | Data Portability ---
Author Organization [facility] Aditya Owen [facility] [place] Address [address] [place] [address] Assessment Encounter Date Assessment Date Assessment LastModified [...] Surgeries total knee replacement (SURG) 2022 023 0 Not available 3 12:43:00 Imaging XR, knee, 4 or more view 2022 023 [facility], [address], [address], [place], [address], 3 07:44:36 Medication Orders None recorded. Patient TargetsNo targets recorded. Patient InstructionsNo instructions recorded. Reason for Referral None Reported. Problems Name Problem SNOMED Code Status Onset Date Resolution Date Notes Provider Name and Address Organization Details Recorded Time Osteoarthri tis of right knee joint 9821013634564 00 Active 2022 TOYA COMBS PA-C [address] [facility],[address], [place], [address], [place] [facility] 3 07:47:22 Osteoarthri tis of left knee joint 1037568479335 09 Active 2022 TOYA COMBS PA-C [address], [place], [address], [place] [facility] 3 07:47:28 Problem Notes None recorded. Medical Equipment None Reported. Allergies Allergen ID Allergen Name Allergen Category Reaction Reaction Severity Criticality Documentation Date Start Date Code Code System Note Provider Name and Address Organization Details Recorded Time 3315 Product containin g penicilli n (product) medicatio n Not available Not available Not available 08/14/2022 14683 8001 SNOMED Kathy Quinn null, [facility] 3 15:20:29 3316 vancomyci n medicatio n Not available Not available Not available 08/14/2022 79595 RxNorm Kathy Quinn null, [facility] 3 15:20:51 Medications Name Sig Start [...] Updated DateTime 08/14/2022 165.1 cm 36.6 kg/m2 59953.[address] [place] [facility] 08/14/2022 15:21:42 Date Recorded Body height Provider Name an d Address Organization Details Last Updated DateTime 08/31/2022 165.1 cm Jenifer Peñaloza [facility] 08/31/2022 16:10:36 Social History None recorded. Functional Status Question Answer Note LastModified by Organizat ion Details LastModified Time Do you use any illicit or recreational drugs? No [email or web address] Information not available 08/14/2022 What is your level of alcohol consumption? None [email or web address] Information not available 08/14/2022 Mental Status None recorded. Family History Relationship Description Onset Age of this Age Resolved Age Notes LastModified by Organization Details LastModified Time Mother Family history of malignant neoplasm [email or web address] Not available 08/14 15:22:22 Father Diabetes mellitus [email or web address] Not available 08/14 15:22:30 Father Heart disease [email or web address] Not available 08/14 15:22:41 Father Hypertensive disorder [email or web address] Not available 08/14 15:22:50 Medical History Condition [...] Anemia N Brain Injury N Heart Attack (MS) N Osteopenia N Diabetes Y Bleeding Disorder [...] Codes Diagnosis Note [id number] TOYA COMBS PA-C [address] [address] 08/14/2022 14:58:36 08/14/2022 15:35:52 Pain of right knee joint 2443605198 43203 M25.561 Osteoarthr itis of right knee joint 2732615447 09179 M17.11 Osteoarthr itis of left knee joint 6940663466 37409 M17.12 [id number] Luis Carlos Beltran MD [address] [address] 08/31/2022 16:05:05 08/31/2022 16:27:49 Osteoarthritis of right knee joint 5774760986 99560 M17.11 Arthritis of knee 415850 002 M13.869 Health Concerns Section Related Observation LastModified by Organization Detai ls LastModified Time None Recorded Concern Status LastModified by Organization Details LastModified Time None Recorded Advance Directives Directive None Recorded Payers Insurance Date Sequence Insurance Name Policy Number Policy Tatum Covered Member ID Tatum Member ID Guarantor Name 08/31/2022 1 [place] [employer] - [employer] 111 Belgica Pierce [id number] Belgica Pierce Notes Date Note Type Note Provider Name and Address Organization Details Recorded Time 08/14/2022 text/html Assessment and Plan: Date of visit 03/15/2021. Seen by me chart in [id number] female with end-stage degenerative joint disease of [...] both of her knees. TOYA COMBS PA-C [address] [place] [address], [address], [place] [facility] 08/15/2022 07:49:50 08/31/2022 text/html HPI: T [...] degrees. The knee is stable within that [id number] to AP and ML stress. The alignment of the knee is varus. Muscle strength is normal. Pedal pulses are palpable. Hip examination, including flexion and internal rotation, was negative in that groin pain was not produced. Radiographs of the right knee from August 14, 2022 demonstrate degenerative joint disease with joint space narrowing, osteophyte formation, and subchondral sclerosis. [id number]-ij-dpch articulation in the medial compartment. Assessment/Plan: The [...] right total knee replacement, robotic assisted, at [facility]. Luis Carlos Beltran MD [address], [place], [address], [facility] 08/31/2022 16:35:11 OBGyn Episode No OBEpisode recorded.
--- OUTSIDE RECORDS SUMMARY | 2025-02-10 18:20 | XMS_ITS | Encounter Summary ---
Author Organization [facility] Address [address] [place] [address] Phone Care Team Providers Care Aerospace Assembler Name Role Phone Benji Salcedo MD Primary Care Provider [phone] Encounter Details Date Type Department Care Team (Late st Contact Info) Description 07/13/2021 Telephone [facility] [address] [place] [address] Noy Tuttle Social History Tobacco [...] on filedocumented in this encounter Care Teams Aerospace Assembler Relationship Specialty Start Date End Date Benji Salcedo MD [address] [facility] [address] [place] [address] PCP - General 04/26/20 documented as of this encounter
--- OUTSIDE RECORDS SUMMARY | 2025-02-10 18:20 | XMS_ITS | Encounter Summary ---
Author Organization [facility] Address [address] [facility] [address] [place] [address] Phone Care Team Providers Care Light Bulb Tester Name Role Phone Benji Salcedo MD Primary Care Provider [phone] Encounter Details Date Type Department Care Team ([facility] st Contact Info) Description 02/03/2025 Orders Only [facility] Orthopedics & Sports Medicine [address] [place] [address] [id number] [address] [address] Right foot pain (Primary Dx) Social History Tobacco Use Types [...] Description 02/18/2025 3:00 PM EST Office Visit [facility] Orthopedics & Sports Medicine [address] [place] [address] Demetrio Hunt MD [address] [place] [address] Orthopedics & Sports Medicine, [facility] [place] [address] [email or web address] documented as of this encounter Procedures Procedure Name Priority Date/Time Associated Diagnosis Comments XR FOOT (RIGHT) Routine 02/03/2025 8:44 AM EDT Right foot pain documented in this encounter Visit Diagnoses Diagnosis Right foot pain- Primary Pain in soft tissues of limb documented in this encounter Care Teams Light Bulb Tester Relationship Specialty Start Date End Date Benji Salcedo MD [address] [place] [id number] PCP - General Internal Medicine 11/04/24 documented as of this encounter Additional Source Comments The information contained in this document represents components of the legal health record. It is not the complete legal health record.[facility]
--- OUTSIDE RECORDS SUMMARY | 2025-02-10 18:20 | XMS_ITS | Encounter Summary ---
Author Organization [facility] Address [address] [place] [address] Phone Care Team Providers Care Machine Hand Name Role Phone Benji Salcedo MD Primary Care Provider [phone] Encounter Details Date Type Department Care Team (Late st Contact Info) Description 08/29/2021 Telephone [facility] [address] [place] [address] Taqueria Hook MD Social History [...] side of her back. Please advise CB# [phone] Thank you documented in this encounter Plan of Treatment Not on file documented as of this encounter Visit Diagnoses Not on filedocumented in this encounter Care Teams Machine Hand Relationship Specialty Start Date End Date Benji Salcedo MD [address] [facility] [address] [place] [address] PCP - General 04/26/20 documented as of this encounter
--- OUTSIDE RECORDS SUMMARY | 2025-02-10 18:21 | XMS_ITS | Clinical Summary ---
Author Organization [facility] Address [address] [place] [address] Care Team Providers Care Actuarial Director Name Role Phone Benji Salcedo MD [...] age to complete this topic Care Teams Actuarial Director Relationship Specialty Start Date End Date Benji Salcedo MD PCP - General Internal Medicine 09/10/14
--- OUTSIDE RECORDS SUMMARY | 2025-02-10 18:21 | XMS_ITS | Encounter Summary ---
Author Organization [facility] Address [address] [place] [address] Phone Care Team Providers Care Remote Sensing Surveyor Name Role Phone Benji Salcedo MD Primary Care Provider [phone] Encounter Details Date Type Department Care Team (Late st Contact Info) Description 08/15/2022 Telephone [facility] [address] [place] [address] Sue Tinoco Social History Tobacco [...] on filedocumented in this encounter Care Teams Remote Sensing Surveyor Relationship Specialty Start Date End Date Benji Salcedo MD [address] [place] [address] PCP - General 04/26/20 documented as of this encounter
--- OUTSIDE RECORDS SUMMARY | 2025-02-10 18:21 | XMS_ITS | Patient Health Record ---
Author Organization [employer] [facility] Address [address], [place] [address] Care Team Providers Care Cnc Grinder Name Role Phone HELENE QUEZADA Primary Care [...] REASON FOR REFERRAL Reason (2)New patient Appt [facility] Diagnosis 1 Primary osteoarthrit is of right knee (M17.11) Referral Organization [facility] Referring Provider First Name HELENE [...] Foot pain, left (M79 .672) Referral Organization [facility] Referring Provider First Name HELENE Referring Provider Last Name PILAR Referring Provider Speciality Internal edicine Referred Provider Specialty Physical The rapy Referral Priority Routine Reason (faed thru EMR 5) New patient appt [facility], [address] [place] [address] fax: [phone]. please send MRI Diagnosis 1 Tendinitis of right foot (M77.51) Referral Organization [facility] Referring Provider First Name HELENE Referring Provider Last Name PILAR Referring Provider Speciality Internal M edicine Referred Provider Specialty Orthopedic S urgery General Notes Radha RAMIREZ DIRECTOR SECURITY RISK MANAGEMENT 04/2024 02:28:47 PM >Per patient [place] has [...] Furosemide 20 MG TAKE ONE TABLET BY M OUTH EVERY DAY FOR LEG SWELLING for 30 Active Acetaminophen-Codeine 300-30 MG TAKE 1 TABLET NEEDED BY MOUTH 3 TIMES A DAY FOR 7 DAYS for 7 12/10/2024 Active Allopurinol 100 MG 1 tablet Orally Once a day Not-Taking FreeStyle Ladonna 3 Sensor - as directed applied to skin as directed for 90 days Active Nystatin 344412 UNIT/GM 1 application Ex ternally Twice a [...] Code Notes Problem Cough (R05) Active confirmed 63297215 Problem Obstructive sleep apnea (G47.33) Active confirmed 98221285 Problem GERD without esophagitis (K21.9) Active confirmed 288989821 Problem Mixed hyperlipidemia (E78.2) Active confirmed 353876707 Problem Anxiety (F41.9) Active confirmed 192583 02 Problem Primary osteoarthritis of both knees (M17.0) Active confirmed 749554003 Problem Primary osteoarthritis of right knee (M17.11) Active confirmed 922229532299243 Problem Constipation, unspecified constipation type (K59.00) Active confirmed 94891429 Problem Gouty arthritis (M10.9) Active confirmed 24272254 Problem Acute idiopathic gout of right foot (M10.071) Active confirmed 70650311 Problem Bronchitis with bronchospasm (J20.9) Active confirmed 34017460 Problem Meningioma (D32.9) Active confirmed 252430731 Problem Leukocytosis, unspecified type (D72.829) Active confirmed 845881074 Problem Type 2 diabetes mellitus with hyperglycemia, without long-term current use of insulin (E11.65) Active confirmed Hyperglycem ia due to type 2 diabetes mellitus (674500435703596) Problem Type 2 diabetes mellitus without complication, without long-term current use of insulin (E11.9) Active confirmed Type II diab etes mellitus without complication (354320792) Problem Stage 3a chronic kidney disease (CKD) (N18.31) Active confirmed 058593663 Problem Persistent depressive disorder (F34.1) Active confirmed 7591262689 Problem Stasis dermatitis (I87.2) Active confirmed 43399434 Problem Other fatigue (R53.83) 04/12/20 Active confirmed Fatigue (62504000) Problem Essential (primary) hypertension (I10) 04/12/20 Active confirmed Essential hypertension (58983244) Problem Dorsalgia, unspecified (M54.9) 04/12/20 Active confirmed Backache (511055761) VITAL SIGNS Blood pressure diastolic 70 mm Hg 01/20/2025 Height 62.5 in 01/20/2025 Blood pressure systolic 124 mm Hg 01/20/2025 Weight 188.4 lbs 01/20/2025 BMI 33.91 kg/m2 01/20/2025 Encounters Encounter Location Date Provider Diagnosis [address] [address] 02/13/[address] [address] 02/13/2024 [facility] C. difficile diarrhe a A04.72 ; Abdominal cramping R10.9 and Essential (primary) hypertension I10 [address] [address] 02/15/[address] [address] 02/21/[address] [address] 02/27/2024 [facility] Acute diarrhea R19.[address] [address] 02/29/2024 [facility] Type 2 diabetes mellitus without complication, without long-term current use of insulin E11.[address] [address] 03/05/2024 [facility] Acute diarrhea R19.[address] [address] 03/05/[address] [address] 03/06/2024 [facility] Essential (primary) hypertension I10 and Mixed hyperlipidemia E78.[address] [address] 03/10/[address] [address] 03/11/[address] [address] 03/11/2024 [facility] Left leg cellulitis L03.116 ; Essential (primary) hypertension I10 and Primary osteoarthritis of right knee M17.[address] [address] 03/12/[address] [address] 03/25/2024 [facility] Essential (primary) hypertension I10 ; Type 2 diabetes mellitus with hyperglycemia, without long-term current use of insulin E11.65 ; Mixed hyperlipidemia E78.2 ; Persistent depressive disorder F34.1 ; Meningioma D32.9 ; Primary osteoarthritis of right knee M17.11 and Encounter for general adult medical examination without abnormal findings Z00.00 [facility] [address] [place] [address] 03/28/2024 [facility] Acute diarrhea R19.7 [facility] [address] [place] [address] 04/03/2024 [facility] [address] [place] [address] 04/03/2024 [facility] [address] [place] [address] 04/15/2024 [facility] Acute diarrhea R19.7 [facility] [address] [place] [address] 04/30/2024 [facility] [address] [place] [address] 04/30/2024 [facility] Primary osteoarthrit is of right knee M17.11 [facility] [address] [place] [address] 05/02/2024 [facility] [address] [place] [address] 05/07/2024 [facility] [address] [place] [address] 05/09/2024 [facility] [address] [place] [address] 05/09/2024 [facility] Acute diarrhea R19.7 [facility] [address] [place] [address] 05/12/2024 [facility] [address] [place] [address] 05/14/2024 [facility] [address] [place] [address] 05/14/2024 [facility] [address] [place] [address] 05/16/2024 [facility] [address] [place] [address] 05/22/2024 [facility] [address] [place] [address] 2024 [facility] [address] [place] [address] 05/29/2024 [facility] [address] [place] [address] 06/03/2024 [facility] Acute diarrhea R19.7 [facility] [address] [place] [address] 06/03/2024 [facility] [address] [place] [address] 06/16/2024 [facility] [address] [place] [address], [place] [address] 06/30/2024 [facility] [address] [place] [address] 07/07/2024 [facility] [address] [place] [address] 07/11/2024 [facility] [address] [place] [address], [place] [address] 07/11/2024 [facility] [address] [place] [address], [place] [address] 07/14/2024 HELENE BONNER Essential (primary) hypertension I10 ; Primary osteoarthritis of right knee M17.11 ; Type 2 diabetes mellitus without complication, without long-term current use of insulin E11.9 and Right foot pain M79.671 [facility] [address] [place] [address] 07/15/2024 [facility] [address] [place] [address] 07/18/2024 [facility] Right foot pain M79. 671 [facility] [address] [place] [address] 07/25/2024 [facility] Right foot pain M79. 671 [facility] [address] [place] [address] 08/04/2024 [facility] [address] [place] [address] 08/04/2024 [facility] [address] [place] [address] 08/07/2024 HELENE SANDOVALFORD Essential (primary) hypertension I10 ; Abdominal cramping R10.9 and Foot pain, left M79.672 [facility] [address] [place] [address] 08/11/2024 [facility] [address] [place] [address] 08/14/2024 [facility] [address] [place] [address] 08/20/2024 [facility] [address] [place] [address] 08/21/2024 HELENE BONNER Acute idiopathic gou t of right foot M10.071 [facility] [address] [place] [address] 08/25/2024 [facility] [address] [place] [address] 09/03/2024 [facility] [address] [place] [address] 09/09/2024 [facility] [address] [place] [address] 09/11/2024 [facility] [address] [place] [address] 09/15/2024 HELENE QUEZADA Right foot pain M79. 671 ; Essential (primary) hypertension I10 and Gouty arthritis M10.9 [facility] [address] [place] [address] 09/17/2024 [facility] [address] [place] [address] 09/17/2024 [facility] [address] [place] [address] 09/17/2024 HELENE SANDOVALFORD Cellulitis of hand L03.119 [facility] [address] [place] [address] 09/23/2024 HELENE [facility] [address] [place] [address] 10/01/2024 [facility] [address] [place] [address] 10/01/2024 [facility] Type 2 diabetes mellitus with hyperglycemia, without long-term current use of insulin E11.65 ; Right foot pain M79.671 ; Essential (primary) hypertension I10 and Traumatic injury of head, initial encounter S09.90XA [facility] [address] [place] [address] 10/02/2024 [facility] Right foot pain M79. 671 [facility] [address] [place] [address] 10/03/2024 [facility] [address] [place] [address] 10/03/2024 [facility] [address] [place] [address] 10/03/2024 [facility] [address] [place] [address] 10/07/2024 [facility] [address] [place] [address] 10/07/2024 [facility] [address] [place] [address] 10/10/2024 HELENE BONNER Tendinitis of right foot M77.51 [facility] [address] [place] [address] 10/15/2024 [facility] [address] [place] [address] 10/23/2024 [facility] Type 2 diabetes mellitus without complication, without long-term current use of insulin E11.9 and Gouty arthritis M10.9 [facility] [address] [place] [address] 11/03/2024 [facility] [address] [place] [address] 11/12/2024 [facility] [address] [place] [address] 11/13/2024 [facility] [address] [place] [address] 11/18/2024 [facility] Right foot pain M79. 671 ; Essential (primary) hypertension I10 and Type 2 diabetes mellitus without complication, without long-term current use of insulin E11.[address] [address] 11/18/2024 [facility] Right foot pain M79. [address] [place] [address] 11/19/[address] [place] [address] 12/16/[address] [place] [address] 12/22/[address] [place] [address] 01/19/[address] [address] 01/20/2025 [facility] Right flank pain R10 .A1 ; Acute UTI (urinary tract infection) N39.0 ; Gross hematuria R31.0 ; Essential (primary) hypertension I10 ; Right foot pain M79.671 ; Stage 3a chronic kidney disease (CKD) N18.31 and Type 2 diabetes mellitus without complication, without long-term current use of insulin E11.[address] [place] [address] 01/26/2025 [facility] Encounter Date Diagnosis Assessment Notes [...] maintenance: She will book her mammogram at [facility]. Colonoscopy was done in 2021 and [...] maintenance: She will book her mammogram at [facility]. Colonoscopy was done in 2021 and is next due in 2026. Fasting labs are up-to-date. She has had her vaccinations 02/13/2024 Abdominal cramping (ICD-10 - R10.9) 1. [...] - M17.11) 1. Right knee osteoarthritis: Reportedly [id number] and end-stage. Current orthopedic appointment in [place] is not until August and patient does not wish to wait this long. She requests referral to [facility]. We will trial cautious Tylenol with [...] knee: Has a second opinion with the [place] doctor who does the procedure robotically. She [...] knee: Has a second opinion with the [place] doctor who does the procedure robotically. She [...] 1. UTI: Review of culture from [facility] shows Klebsiella which is sensitive to her current Macrodantin. Will continue same 2. Right flank pain with gross hematuria: Question underlying stone as a source of infection. Will check a CT with renal stone protocol. Further recommendations pending results 3. Hypertension: Stable on current amlodipine/olmesar wood and metoprolol. Will continue same 4. Right foot pain: Finally improved after cortisone injection with podiatry in [place]. Underlying degenerative arthritis appears to have been the source of her symptoms. Will follow 5. Stage IIIa chronic kidney disease: Stable on current medical therapy. Knows to avoid NSAIDs. She has upcoming follow-up with Dr. Patton from nephrology 6. Type 2 diabetes mellitus: Improved on Ozempic. Will continue present dosing 01/20/2025 Right flank pain (ICD-10 - R10.A1) 1. UTI: Review of culture from [facility] shows Klebsiella which is sensitive to her current Macrodantin. Will continue same 2. Right flank pain with gross hematuria: Question underlying stone as a source of infection. Will check a CT with renal stone protocol. Further recommendations pending results 3. Hypertension: Stable on current amlodipine/olmesar wood and metoprolol. Will continue same 4. Right foot pain: Finally improved after cortisone injection with podiatry in [place]. Underlying degenerative arthritis appears to have been [...] maintenance: She will book her mammogram at [facility]. Colonoscopy was done in 2021 and is next due in 2026. Fasting labs are up-to-date. She has had her vaccinations 01/20/2025 Gross hematuria (ICD-10 - R31.0) 1. UTI: Review of culture from [facility] shows Klebsiella which is sensitive to her current Macrodantin. Will continue same 2. Right flank pain with gross hematuria: Question underlying stone as a source of infection. Will check a CT with renal stone protocol. Further recommendations pending results 3. Hypertension: Stable on current amlodipine/olmesar wood and metoprolol. Will continue same 4. Right foot pain: Finally improved after cortisone injection with podiatry in [place]. Underlying degenerative arthritis appears to have been [...] knee: Has a second opinion with the [place] doctor who does the procedure robotically. She [...] I10) 1. UTI: Review of culture from [facility] shows Klebsiella which is sensitive to her current Macrodantin. Will continue same 2. Right flank pain with gross hematuria: Question underlying stone as a source of infection. Will check a CT with renal stone protocol. Further recommendations pending results 3. Hypertension: Stable on current amlodipine/olmesar wood and metoprolol. Will continue same 4. Right foot pain: Finally improved after cortisone injection with podiatry in [place]. Underlying degenerative arthritis appears to have been [...] knee: Has a second opinion with the [place] doctor who does the procedure robotically. She [...] maintenance: She will book her mammogram at [facility]. Colonoscopy was done in 2021 and is next due in 2026. Fasting labs are up-to-date. She has had her vaccinations 01/20/2025 Right foot pain (ICD-10 - M79.671) 1. UTI: Review of culture from [facility] shows Klebsiella which is sensitive to her current Macrodantin. Will continue same 2. Right flank pain with gross hematuria: Question underlying stone as a source of infection. Will check a CT with renal stone protocol. Further recommendations pending results 3. Hypertension: Stable on current amlodipine/olmesar wood and metoprolol. Will continue same 4. Right foot pain: Finally improved after cortisone injection with podiatry in [place]. Underlying degenerative arthritis appears to have been [...] maintenance: She will book her mammogram at [facility]. Colonoscopy was done in 2021 and is next due in 2026. Fasting labs are up-to-date. She has had her vaccinations 01/20/2025 Stage 3a chronic kidney disease (CKD) (ICD-10 - N18.31) 1. UTI: Review of culture from [facility] shows Klebsiella which is sensitive to her current Macrodantin. Will continue same 2. Right flank pain with gross hematuria: Question underlying stone as a source of infection. Will check a CT with renal stone protocol. Further recommendations pending results 3. Hypertension: Stable on current amlodipine/olmesar wood and metoprolol. Will continue same 4. Right foot pain: Finally improved after cortisone injection with podiatry in [place]. Underlying degenerative arthritis appears to have been [...] maintenance: She will book her mammogram at [facility]. Colonoscopy was done in 2021 and [...] maintenance: She will book her mammogram at [facility]. Colonoscopy was done in 2021 and is next due in 2026. Fasting labs are up-to-date. She has had her vaccinations 01/20/2025 Type 2 diabetes mellitus without complication, without long-term current use of insulin (ICD-10 - E11.9) 1. UTI: Review of culture from [facility] shows Klebsiella which is sensitive to her current Macrodantin. Will continue same 2. Right flank pain with gross hematuria: Question underlying stone as a source of infection. Will check a CT with renal stone protocol. Further recommendations pending results 3. Hypertension: Stable on current amlodipine/olmesar wood and metoprolol. Will continue same 4. Right foot pain: Finally improved after cortisone injection with podiatry in [place]. Underlying degenerative arthritis appears to have been [...] Date FLUID DIFFERENTIAL 06/22/2014 GI Profile, Stool, [id number] 02/27/2024 GI Profile, Stool, [id number] 06/03/2024 GI Profile, Stool, [id number] 08/07/2024 Next Appt Details Provider Name:HELENE QUEZADA , 04/17/2025 03:15:00 PM, [address] [place], [address], Insurance Providers Payer Name Payer Address Payer Phone Subscriber Number Group Number Insured Name Patient Relationship to Insured Coverage Start Date Coverage End Date [employer] [address] [place] [phone] [id number] VANESSARBELGICA Self - patient is the insured 2005 [...] 1991 Hospitalization History Reason Date(Month/Year) Farzad MULLEN [facility]- Abdominal pain, b lood in urine 01/18/25 [facility] Positive for COVID 12/16 as above
--- OUTSIDE RECORDS SUMMARY | 2025-02-10 18:21 | XMS_ITS | Clinical Summary ---
Author Organization [facility] Address [address] [place] [address] [address] [place] [address] Phone Care Team Providers Care Manufacturing Baker Name Role Phone Benji Salcedo MD Primary Care Provider [phone] Allergies Active Allergy Reactions Criticality Noted Date [...] patient's age to complete this topic Insurance [facility] Care Teams Manufacturing Baker Relationship Specialty Start Date End Date Benji Salcedo MD [address] [place] [id number] PCP - General 04/26/20
--- OUTSIDE RECORDS SUMMARY | 2025-02-10 18:21 | XMS_ITS | Clinical Summary ---
Author Organization [facility] Address [address] [place] [address] Phone Care Team Providers Care Biodiesel Processing Technician Name Role Phone Benji Salcedo MD Primary Care Provider [phone] Surgical History Surgery Date Site/Laterality Comments SECTION [...] complete this topic Insurance MEDICARE Care Teams Biodiesel Processing Technician Relationship Specialty Start Date End Date Benji Salcedo MD PCP - General Internal Medicine 04/02/08
--- OUTSIDE RECORDS SUMMARY | 2025-02-10 18:22 | XMS_ITS | Clinical Summary ---
Author Organization [facility] Address [address] [address] Phone Care Team Providers Care Box Sealing Inspector Name Role Phone Benji Salcedo MD Primary Care Provider [phone] Allergies Active Allergy Reactions Criticality Noted Date [...] Encounters Date Type Department Care Team Description 02/03/2025 Orders Only [facility] Orthopedics & Sports Medicine [address] [place] [address] Shalom Yusuf MA Right foot pain (Primary Dx) 01/18/2025 5:11 PM EDT - 01/18/2025 8:40 PM EDT Emergency [facility] [address] [place] [address] Hiral Wilcox MD Discharge Disposition: Home or Self Care 01/15/2025 Telephone [facility] Orthopedics & Sports Medicine [address] [place] [address] Thais Sesay RN [email or web address] - Right - Campbell 12/08/2024 1:00 PM EDT - 12/08/2024 1:53 PM EDT Surgery [facility] Cardiovascular And Interventional Radiology [address] [place] [address] Bridgett Garcia PA-C Joint Aspiration with Fluoroscopy Guidance 12/08/2024 12:52 PM EDT - 12/08/2024 2:14 PM EDT Hospital Encounter [facility] [address] [place] [address] Alonzo Garza MD Discharge Disposition: Home or Self Care 12/08/2024 Procedure Pass [facility] Cardiovascular And Interventional Radiology [address] [place] [address] 11/13/2024 1:00 PM EDT Office Visit [facility] Orthopedics & Sports Medicine [address] [place] [address] Jules Erickson MD Osteoarthritis of ankle and foot, unspecified laterality (Primary Dx); Peroneal tendinitis of right lower extremity from Last 3 Months Social History Tobacco [...] 01/18/2025 4:58 PM EDT Plan of Treatment Upcoming Encounters Date Type Department Care Team (Late st Contact Info) Description 02/18/2025 3:00 PM EST Office Visit [facility] Orthopedics & Sports Medicine [address] [place] [address] Demetrio Hunt MD [address] [place] [address] Orthopedics & Sports Medicine, [facility] [place] [address] Health Maintenance Due Date Last Done Comments [...] 02/03/2025 8:44 AM EDT Right foot pain URINE SEDIMENT STAT 01/18/2025 6:25 PM EDT [...] Osteoarthritis of ankle and foot, unspecified laterality from Last 3 Months Results * (ABNORMAL) Urinalysis w/reflex Urine Culture (01/18/2025 6:25 PM EDT) COLOR BRITTANY(A) Yellow [facility] CLARITY CLOUDY [facility] GLUCOSE Negative Negative [facility] BILI 1+(A) Negative [facility] KETONES Negative Negative [facility] SPECIFIC GRAVITY >1.030 1.005 - 1.030 [facility] BLOOD 3+(A) Negative [facility] PH 5.5 5.0 - 8.0 [facility] Protein-UA 2+(A) Negative [facility] NITRITE Negative Negative [facility] Leukocyte esterase, ur 2+(A) Negative [facility] Urine (Urine) 01/18/2025 6:2 5 PM EDT 01/18/2025 6:43 PM EDT us Angelito Mcrae MD URINE ORDERABLES Final Result [facility] [address] [place] [address] * (ABNORMAL) Urine Culture (01/18/2025 6:25 PM EDT) Special Requests None Reflexed from [id number] 01/18/2025 7:33 PM EDT [facility] Urine Culture >100,000 colony forming units per mL KLEBSIELLA OXYTOCA(A) 01/20/2025 10:29 AM EDT [facility] Urine Culture >100,000 colony forming units per mL BETA HEMOLYTIC STREPTOCOCCUS GROUP B(A) 01/20/2025 10:29 AM EDT [facility] Urine 01/18/2025 6:25 PM EDT 01/18/2025 6:43 [...] MICROBIOLOGY - GENERAL ORDERABL ES Final Result Performing Organization Address City/[facility] Co de Phone Number [address] [address] * (ABNORMAL) Urine sediment (01/18/2025 6:25 PM EDT) WBC TOO NUMEROUS TO COUNT(A) NONE SEEN /hpf [facility] RBC 50-100(A) NONE SEEN /hpf [facility] URINE EPITHELIAL 5-10(A) NONE SEEN [facility] MUCUS NONE SEEN NONE SEEN /hpf [facility] BACTERIA 2+(A) NONE SEEN /hpf [facility] 01/18/2025 6:25 PM EDT 01/18/2025 6:43 PM EDT Angelito Mcrae MD URINE ORDERABLES Final Result Performing Organization Address City/[facility]/ZIP Co de Phone Number [address] [address] * LFTs (hepatic panel) (01/18/2025 5:19 PM EDT) ALKALINE PHOSPHATASE 92 39 - 117 U/L [facility] TOTAL BILIRUBIN 0.6 0.0 - 1.2 mg/dL [facility] DIRECT BILIRUBIN 0.2 0.0 - 0.2 mg/dL [facility] Bilirubin (Indirect) 0.4 0 - 1.5 mg/dL [facility] AST 18 0 - 37 U/L [facility] ALT 17 0 - 40 U/L [facility] TOTAL PROTEIN 6.6 6.5 - 8.0 g/dL [facility] ALBUMIN 4.2 3.9 - 4.8 g/dL [facility] GLOBULIN 2.4 1 - 4.8 g/dL [facility] A/G Ratio 1.75 1.00 - 4.80 RATIO [facility] Blood 01/18/2025 5:19 PM EDT 01/18/2025 5:23 PM EDT us Angelito Mcrae MD LAB BLOOD ORDERABLES Final Resu lt [facility] [address] [place] [address] * (ABNORMAL) CBC and differential (01/18/2025 5:19 PM EDT) WBC 13.57(H) 4.00 - 11.00 K/uL [facility] RBC 5.55(H) 4.00 - 5.20 M/uL [facility] HGB 15.2 12.0 - 16.0 g/dL [facility] HCT 47.4(H) 36.0 - 46.0 % [facility] PLT 235 150 - 450 K/uL [facility] MCV 85.4 80.0 - 100.0 fL [facility] MCH 27.4 27.0 - 31.0 pg [facility] MCHC 32.1 32.0 - 36.0 g/dL [facility] RDW 13.1 11.5 - 14.5 % [facility] MPV 8.7 8.4 - 12.0 fL [facility] NRBC 0.00 0.00 /100 WBCs [facility] ABSOLUTE NRBC 0.00 0.00 K/uL [facility] DIFF METHOD Auto [facility] NEUTS 77.8(H) 48.0 - 76.0 % [facility] LYMPHS 13.9(L) 18.0 - 41.0 % [facility] MONOS 5.5 4.0 - 11.0 % [facility] EOS 1.8 0.0 - 5.0 % [facility] BASOS 0.7 0.0 - 1.5 % [facility] Granulocytes, immature (%) 0.3 0.0 - 0.9 % [facility] ABSOLUTE NEUTS 10.58(H) 1.92 - 7.60 K/uL [facility] ABSOLUTE LYMPHS 1.88 0.72 - 4.10 K/uL [facility] ABSOLUTE MONOS 0.74 0.16 - 1.10 K/uL [facility] ABSOLUTE EOS 0.24 0.00 - 0.50 K/uL [facility] ABSOLUTE BASOS 0.09 0.00 - 0.15 K/uL [facility] Granulocytes, immature 0.04 0.00 - 0.09 K/uL [facility] Blood 01/18/2025 5:19 PM EDT 01/18/2025 5:23 PM EDT us Angelito Mcrae MD LAB BLOOD ORDERABLES Final Resu lt Performing Organization Address City/[facility]/ZIP Co de Phone Number [address] [address] * (ABNORMAL) Lipase (01/18/2025 5:19 PM EDT) LIPASE 10(L) 16 - 63 U/L [facility] Blood 01/18/2025 5:19 PM EDT 01/18/2025 5:23 PM EDT Angelito Mcrae MD LAB BLOOD ORDERABLES Final Resu lt [address] [address] * (ABNORMAL) Basic metabolic panel (01/18/2025 5:19 PM EDT) SODIUM 143 133 - 146 mmol/L [facility] CHLORIDE 108 96 - 108 mmol/L [facility] POTASSIUM 4.4 3.3 - 5.1 mmol/L [facility] CO2 23 21 - 35 mmol/L [facility] BUN 36(H) 6 - 19 mg/dL [facility] CREATININE 1.40 0.5 - 1.5 mg/dL [facility] GLUCOSE 124(H) 70 - 99 mg/dL [facility] CALCIUM 10.0 8.4 - 10.3 mg/dL [facility] EGFR 40(L) >59 mL/min/1.7 3m2 [facility] Comment:Estimated glomerular filtration rate calculated using the CKD-EPI refit equation. ANION GAP 16 10 - 20 mmol/L [facility] Blood 01/18/2025 5:19 PM EDT 01/18/2025 5:23 PM EDT us Angelito Mcrae MD LAB BLOOD ORDERABLES Final Resu lt Performing Organization Address [facility] de Phone Number [address] [address] * JOINT ASPIRATION WITH FLUOROSCOPY GUIDANCE (IR) (12/08/2024 1:54 PM EDT) Anatomical Region Laterality Modality X-Ray Angiograph y Narrative 12/08/2024 3:53 PM EDT Impression: 1. Fluoroscopic guided right navicular-cuneiform joint steroid injection/arthrogram. History: Patient with history of right mid-foot pain who presents for right mid-foot joint injection. Target is the navicular-cuneiform joint as this communicates with the 2nd tarsalmetatarsal joint. Desk Lieutenant: Bridgett Garcia PA-C Anesthesia: Local anesthesia was [...] consent was obtained from the patient (or customer service representative teacher) after explaining all risks and benefits of [...] radiologist for this procedure. Jules Erickson MD [facility] IR Final Result from Last 3 Months Insurance [facility] MEDICARE A MEDICARE A [facility] MEDICARE [facility] MEDICARE A MEDICARE A [facility] MEDICARE A [facility] MEDICARE A [facility] MEDICARE A [facility] FEDERAL MEDICARE A Care Teams Box Sealing Inspector Relationship Specialty Start Date End Date Benji Salecdo MD [address] [place] [address] PCP - General Internal Medicine 11/04/24 Additional Source Comments The information contained in this document represents components of the legal health record. It is not the complete legal health record.[facility]
--- OUTSIDE RECORDS SUMMARY | 2025-02-10 18:22 | XMS_ITS | Encounter Summary ---
Author Organization [facility] Address [address] [facility] [address] [place] [address] Phone Care Team Providers Care Vice President Of Talent Acquisition Name Role Phone Benji Salcedo MD Primary Care Provider [phone] Encounter Details Date Type Department Care Team (Late st Contact Info) Description 12/08/2024 Procedure Pass [facility] Cardiovascular And Interventional Radiology [address] [place] [address] Social History Tobacco Use Types Packs/Day Years [...] Description 02/18/2025 3:00 PM EST Office Visit [facility] Orthopedics & Sports Medicine [address] [place] [address] Demetrio Hunt MD [address] [place] [address] Orthopedics & Sports Medicine, [place] [address] [email or web address] documented as of this encounter Visit Diagnoses Not on filedocumented in this encounter Care Teams Vice President Of Talent Acquisition Relationship Specialty Start Date End Date Benji Salcedo MD [address] [place] [address] PCP - General Internal Medicine 11/04/24 documented as of this encounter Additional Source Comments The information contained in this document represents components of the legal health record. It is not the complete legal health record.[facility]
== END 2025-02-10 14:38 | disposition home or self-care (01) ==
LOC: HO.HPODS 14:00
PROVIDERS: PCP Internal Medicine; Visit Provider Student in an Organized Health Care Education/Training Program
DX: E11.9 Type 2 diabetes mellitus without complications (principal); M76.821 Posterior tibial tendinitis, right leg; M76.72 Peroneal tendinitis, left leg; B35.1 Tinea unguium
CPT/HCPCS: 11721; 99204

== ENCOUNTER 2025-02-10 13:59 | Outpatient (REF) | payer BC, SELFPAY | END 2025-02-10 14:00 | disposition home or self-care (01) | LOC: HO.LNP 13:59 | PROVIDERS: PCP Internal Medicine; Visit Provider Student in an Organized Health Care Education/Training Program | DX: B35.1 Tinea unguium (principal); M76.821 Posterior tibial tendinitis, right leg; M76.72 Peroneal tendinitis, left leg; E11.9 Type 2 diabetes mellitus without complications; Z79.4 Long term (current) use of insulin; Z79.899 Other long term (current) drug therapy | CPT/HCPCS: 11721; 87101; 87220; 88304; 88311; 88312 ==

== ENCOUNTER 2025-03-09 12:42 | Outpatient (AMB) | payer BC, SELFPAY ==
--- NOTE | 2025-03-09 12:47 | A.OFFVIS_ITS ---
Intake Visit Reasons: big toe nail fungus red/painful Intake Note: Belgica is a 69 year old female who presents today for a follow up of her big toe nail fungus red/painful. Patient reports ongoing pain. She notices that her left great toe is red and she notices the 2nd and 3rd toe having a similar thing. Allergies Iodinated Contrast Media (IV CONTRAST) Allergy (Severe, Verified 03/09/25 12:54) SEIZURE vancomycin (VANCOMYCIN) Allergy (Severe, Verified 03/09/25 12:54) ITCHING, SOB doxycycline (DOXYCYCLINE) Allergy (Intermediate, Verified 03/09/25 12:54) DIFFICULTY SWALLOWING Penicillins (PENICILLINS) Allergy (Intermediate, Verified 03/09/25 12:54) RASH cephalexin (From KEFLEX) Allergy (Unknown, Verified 03/09/25 12:54) RASH Sulfa (Sulfonamide Antibiotics) (SULFA (SULFONAMIDE ANTIBIOTICS)) Allergy (Unknown, Verified 03/09/25 12:54) UNKNOWN HPI HPI big toe nail fungus red/painful: Details: 69-year-old female with past medical history diabetes mellitus type 2, CKD stage 3, PVD, right knee osteoarthritis, returns for left big toe pain, bilateral ankle pain, and left foot fungal infection. She noted increased left big toe pain. She saw an orthopedist who said it was gout. She then saw her PCP who prescribed Bactrim which helped her symptoms. She was unable to tolerate the Bactrim for more than a few days due to diarrhea and stomach pain so she stopped taking it. History: She notes a long history of right foot pain starting since July of 2024. She had multiple x-rays MRIs and a bone scan and eventually had an injection to the top of her right foot, which helped to relieve her pain. She states her right knee has significant osteoarthritis, she was undergoing gel shots however due to insurance restrictions, she has no longer receiving an injections. Now she has significant knee pain, and believes she is walking differently and putting more stress to her ankles. [facility] Medical History GINA (obstructive sleep apnea) Gout On beta kamar at home Chronic headaches Splenic artery aneurysm Meningioma HTN (hypertension) Surgical History Hx laparoscopic cholecystectomy (~2013) History of hysterectomy History of History of colonoscopy (~08/2018) Family History Father Family hx of colon cancer Mother Hx of breast cancer Paternal Grandmother Colon cancer Social History Household Members: None Housing: House Alcohol intake: never Patient Tobacco Use Status: Never used Tobacco e-Cigarette/Vaping Use: Never Used service: No Cognitive needs: No Hearing needs: No Vision needs: No Review of Systems Const All systems reviewed & are unremarkable except as noted in HPI and below Physical Exam Extrem Other: *Bilateral Lower Extremity Focused Diabetic Foot Exam Vascular: DP/PT 2/4, CFT<3s to digits, TG warm to cool, no pedal edema, pedal hair present Derm: Skin: Mild erythema to medial border right distal hallux Interdigital spaces: Left 4th interspace maceration significantly improved Nails: Elongated thickened dystrophic nails x10, with left hallux nail fragmented. Neuro: [place]-joana monofilament (10g) test 10/10 intact to right foot, 10/10 intact to left foot. Msk: Deformities: No evidence of hammertoes, bunions, Charcot changes, or other structural abnormalities. Muscle strength: 5/5 in all muscle groups. Gait: Normal, no antalgic or steppage gait observed. Footwear Assessment: Shoes inspected; appropriate fit, no excessive wear, or foreign objects noted. Assessment & Plan Assessment & Plan (1) Cellulitis of left leg: Code(s): L03.116 - Cellulitis of left lower limb Category: Medical Plan: * Rx doxycycline * Rx left foot x-rays (2) Right foot pain: Code(s): M79.671 - Pain in right foot Category: Medical Plan: * No pain present currently * Rx right foot x-rays (3) Posterior tibial tendinitis, right leg: Code(s): M76.821 - Posterior tibial tendinitis, right leg Category: Medical Plan: * Continue range of motion and stretching for her bilateral ankle tendonitis. * Recommended ankle compression sleeve when she is walking for extended periods of time. * Continue power step high arch orthotics. May require custom orthotics (4) Peroneal tendinitis, left leg: Code(s): M76.72 - Peroneal tendinitis, left leg Category: Medical Plan: * Offered cortisone injection, which may be in his started at the next visit pending her treatment plan for her right knee. (5) Tinea unguium: Code(s): B35.1 - Tinea unguium Category: Medical Plan: * Nail biopsy left hallux performed. Results are pending * Continue clotrimazole left 4th interspace tinea pedis Orders: Orders XR Foot Aj 3V Today L03.116 - Cellulitis of left lower limb, M79.671 - Pain in right foot Medications: New doxycycline hyclate 100 mg PO BID 14 tabs 1RF Left foot cellulitis L03.116 - Cellulitis of left lower limb Coding Level of Care Code Est Pt Level 4 (74449) Diagnoses Cellulitis of left leg L03.116 Right foot pain M79.671 Posterior tibial tendinitis, right leg M76.821 Peroneal tendinitis, left leg M76.72 Tinea unguium B35.1 Time Spent (min) 30
== END 2025-03-09 13:13 | disposition home or self-care (01) ==
LOC: HO.HPODS 12:42
PROVIDERS: PCP Internal Medicine; Visit Provider Student in an Organized Health Care Education/Training Program
DX: L03.116 Cellulitis of left lower limb (principal); M79.671 Pain in right foot; M76.821 Posterior tibial tendinitis, right leg; M76.72 Peroneal tendinitis, left leg; B35.1 Tinea unguium
CPT/HCPCS: 99214

== ENCOUNTER 2025-03-19 14:12 | Outpatient (AMB) | payer BC, SELFPAY ==
[2025-03-19 14:17] VITALS: BMI 31.8
--- NOTE | 2025-03-19 14:17 | A.OFFVIS_ITS ---
Vital Signs 03/19/25 14:17 Height 5 ft 4 in Weight 185 lb BMI 31.8 Intake Visit Reasons: fu on big left toe red and painful Intake Note: Belgica is a 69 year old female who presents to the office today for left great toe foot pain/redness. Pt states after finishing her course of antibiotics she noticed the redness and pain has come back on her great left toe. Pt denies any discharge. Allergies Iodinated Contrast Media (IV CONTRAST) Allergy (Severe, Verified 03/19/25 14:17) SEIZURE vancomycin (VANCOMYCIN) Allergy (Severe, Verified 03/19/25 14:17) ITCHING, SOB doxycycline (DOXYCYCLINE) Allergy (Intermediate, Verified 03/19/25 14:17) DIFFICULTY SWALLOWING Penicillins (PENICILLINS) Allergy (Intermediate, Verified 03/19/25 14:17) RASH cephalexin (From KEFLEX) Allergy (Unknown, Verified 03/19/25 14:17) RASH Sulfa (Sulfonamide Antibiotics) (SULFA (SULFONAMIDE ANTIBIOTICS)) Allergy (Unknown, Verified 03/19/25 14:17) UNKNOWN HPI HPI fu on big left toe red and painful: Details: 69-year-old female with past medical history diabetes mellitus type 2, CKD stage 3, PVD, right knee osteoarthritis, returns for left big toe pain, bilateral ankle pain, and left foot fungal infection. She states she completed the doxycycline, only noticed some oral lesions towards the end of her treatment which she attributes to the antibiotic. She is also experiencing some mild stomach pain, denies any diarrhea. She states that after the antibiotics, she believes her left big toe pain has started to return. She denies any drainage, increased warmth, increased red discoloration, or other clinical signs of infection to the toe. She is waiting for a right knee surgery which he is unable to do currently due to the left big toe infection. She also notes that she started having right ankle pain recently which she attributes to walking differently due to her knee. History: She notes a long history of right foot pain starting since July of 2024. She had multiple x-rays MRIs and a bone scan and eventually had an injection to the top of her right foot, which helped to relieve her pain. [facility] Medical History GINA (obstructive sleep apnea) Gout On beta kamar at home Chronic headaches Splenic artery aneurysm Meningioma HTN (hypertension) Surgical History Hx laparoscopic cholecystectomy (~2013) History of hysterectomy History of History of colonoscopy (~08/2018) Family History Father Family hx of colon cancer Mother Hx of breast cancer Paternal Grandmother Colon cancer Social History Household Members: None Housing: House Alcohol intake: never Patient Tobacco Use Status: Never used Tobacco e-Cigarette/Vaping Use: Never Used service: No Cognitive needs: No Hearing needs: No Vision needs: No Review of Systems Const All systems reviewed & are unremarkable except as noted in HPI and below Physical Exam Vital Signs: BMI result Body Mass Index 31.8 Extrem Other: *Bilateral Lower Extremity Focused Diabetic Foot Exam Vascular: DP/PT 2/4, CFT<3s to digits, TG warm to cool, no pedal edema, pedal hair present Derm: Skin: Rubor versus erythema to the distal 1/3 of the right hallux. No drainage or increased warmth or other clinical signs of infection. No drainage on attempted expression. Interdigital spaces: Left 4th interspace maceration significantly improved Nails: Left hallux nail dystrophic thickened discolored and brittle. Neuro: [place]-joana monofilament (10g) test 10/10 intact to right foot, 10/10 intact to left foot. Msk: Moderate tenderness on palpation of the medial aspect of the distal phalanx of the right hallux. Deformities: No evidence of hammertoes, bunions, Charcot changes, or other structural abnormalities. Muscle strength: 5/5 in all muscle groups. Gait: Normal, no antalgic or steppage gait observed. Footwear Assessment: Shoes inspected; appropriate fit, no excessive wear, or foreign objects noted. Results Reviewed Results Reviewed: 02/10/2025 Fungus Cult Hair/Skin/Nail Final 03/14/25-1135 Trichophyton species Tiff famata (formerly Torulopsis tiff) Fungus present on culture. Does not resemble a dermatophyte. Assessment & Plan Assessment & Plan (1) Cellulitis of left leg: Code(s): L03.116 - Cellulitis of left lower limb Category: Medical Plan: * Pending left foot x-rays * Referred for left foot MRI to rule out osteomyelitis to the hallux. (2) Gout, arthritis: Code(s): M10.9 - Gout, unspecified Category: Medical Plan: * Rx uric acid (3) Posterior tibial tendinitis, right leg: Code(s): M76.821 - Posterior tibial tendinitis, right leg Category: Medical Plan: * Continue range of motion and stretching for her bilateral ankle tendonitis. * Recommended ankle compression sleeve when she is walking for extended periods of time. * Continue power step high arch orthotics. May require custom orthotics (4) Peroneal tendinitis, left leg: Code(s): M76.72 - Peroneal tendinitis, left leg Category: Medical Plan: * Offered cortisone injection, which may be in his started at the next visit pending her treatment plan for her right knee. (5) Tinea unguium: Code(s): B35.1 - Tinea unguium Category: Medical Plan: * Nail biopsy left hallux: Trichophyton & Tiff * May require total nail avulsion if there is a fungal component to her hallux infection. At this point there is no signs of abscess or drainage from the nail. Orders: Orders Complete Blood Count Auto Diff Today L03.116 - Cellulitis of left lower limb, Z01.812 - Encounter for preprocedural laboratory examination Uric Acid Today M10.9 - Gout, unspecified Erythrocyte Sedimentation Rate Today L03.116 - Cellulitis of left lower limb C Reactive Protein Today L03.116 - Cellulitis of left lower limb Coding Level of Care Code Est Pt Level 3 (76467) Diagnoses Cellulitis of left leg L03.116 Gout, arthritis M10.9 Posterior tibial tendinitis, right leg M76.821 Peroneal tendinitis, left leg M76.72 Tinea unguium B35.1 Time Spent (min) 30
== END 2025-03-19 14:54 | disposition home or self-care (01) ==
LOC: HO.HPODS 14:12
PROVIDERS: PCP Internal Medicine; Visit Provider Student in an Organized Health Care Education/Training Program
DX: L03.116 Cellulitis of left lower limb (principal); M10.9 Gout, unspecified; M76.821 Posterior tibial tendinitis, right leg; M76.72 Peroneal tendinitis, left leg; B35.1 Tinea unguium
CPT/HCPCS: 99213

== ENCOUNTER 2025-03-19 14:12 | Outpatient (REF) | payer BC, SELFPAY ==
[2025-03-19 17:45] LABS: MANUAL DIFF FLAG NO
[2025-03-19 18:08] LABS: Uric Acid 4.2 mg/dL (2.4-5.7)
[2025-03-19 18:17] LABS: Hematocrit 43.1 % (37.0-47.0); Hemoglobin 14.1 g/dl (12.0-16.0); Imm Gran Abs Auto 0.06 X10*3/uL (0.00-0.03); Imm Gran Pct Auto 0.6 % (0.0-0.4); Lymphocytes Absolute Auto 1.9 X10*3/uL (1.2-4.9); Mean Corpuscular HGB Conc 32.7 g/dl (31.0-35.0); Mean Corpuscular Hemoglobin 27.2 pg (27.0-33.0); Mean Corpuscular Volume 83.2 fL (80.0-98.0); NRBC Abs Auto 0.000 X10*3/uL (0.0-0.012); NRBC Pct Auto 0.0 /100WBC (0.0-0.2); Platelet Count 274 X10*3/uL (160-400); Red Blood Count 5.18 X10*6/uL (4.20-5.50); White Blood Count 10.6 X10*3/uL (4.8-10.8)
[2025-03-19 18:46] LABS: Erythrocyte Sedimentation Rate 2 MM/HR (0-20)
--- OUTSIDE RECORDS SUMMARY | 2025-03-19 20:47 | XMS_ITS | Encounter Summary ---
Author Organization [facility] Address [address] [place] [phone] Phone Care Team Providers Care Frame Sample And Pattern Supervisor Name Role Phone Benji Salcedo MD Primary Care Provider [phone] Benji Salcedo MD Primary Care Provider [phone] Encounter Details Date Type Department Care Team (Late st Contact Info) Description 04/28/2024 Ancillary Orders [facility] Orthopedics at [place] [id number] [facility] [address] [place] [address] Lam Grimes MD [address] [place] [address], [address] [place] [address] [email or web address] Pain (Primary Dx) Social History Tobacco [...] pain documented in this encounter Care Teams Frame Sample And Pattern Supervisor Relationship Specialty Start Date End Date Benji Salcedo MD [address] [place] [address] PCP - General Internal Medicine 12/29/21 11/03/24 Benji Salcedo MD [address] [place] [id number] PCP - General Internal Medicine 11/04/24 documented as of this encounter Additional Source Comments The information contained in this document represents components of the legal health record. It is not the complete legal health record.[facility]
--- OUTSIDE RECORDS SUMMARY | 2025-03-19 20:47 | XMS_ITS | Data Portability ---
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 [email or web address] Not available 10/31/2023 14:07:55 12/11/2023 [id number] She is a diabetic . Blood sugar levels may temporarily increase after steroid injections. She was advised to check blood glucose levels three times a day post procedure. If levels are above 250, she was advised to contact the PCP. [email or web address] Not available 12/11/2023 13:32:29 12/27/2023 [id number] She was advised against bed rest lasting longer than four days and to continue activities as tolerated. [email or web address] Not available 12/27/2023 16:33:20 04/01/2024 [id number] She is a diabetic . Blood sugar [...] Knee pain Active Bridger dan MD [address] , [address], [place], [address], [place] [facility] 6 14:37:23 Displacement of lumbar intervertebral disc without myelopathy 59280757 Active Bridger dan MD [address] , [address], [place], [address], [place] [facility] 6 14:37:23 Lumbosacral spondylosis without myelopathy 63574856 Active Bridger dan MD [address] , [address], [place], [address], [place] [facility] 6 14:37:23 Muscle pain 22169610 Active Bridger dan MD [address] , [address], [place], [address], [place] [facility] 6 14:37:23 Problem Notes None recorded. Procedures Surgical History Date Name Laterality Status Provider Name and Address Organization Details Recorded Time 04/01/20 24 Lumbar Epidural steroid injection under fluoroscopic guidance completed Bridger Soriano MD [address] , [address], [place], [address], [place] [facility] 04/01/2024 16:41:47 12/27/19 24 Genicular Nerve block completed Bridger Soriano MD [address] , [address], [place], [address], [place] [facility] 12/27/2023 16:34:14 12/11/19 24 Lumbar Epidural steroid injection under fluoroscopic guidance completed Bridger Soriano MD [address] , [address], [place], [address], [place] [facility] 12/11/2023 13:31:06 10/31/19 24 Genicular Nerve block completed Bridger Soriano MD [address] , [address], [place], [address], [place] [facility] 10/31/2023 14:08:55 08/14/19 24 Lumbar Epidural steroid injection under fluoroscopic guidance completed Bridger Soriano MD [address] , [address], [place], [address], [place] [facility] 08/14/2023 13:19:15 07/25/19 24 Genicular Nerve block completed Bridger Soriano MD [address] , [address], [place], [address], [place] [facility] 07/25/2023 14:26:15 04/12/20 23 Intra-articular Knee Steroid Injection completed Bridger Soriano MD [address] , [address], [place], [address], [place] [facility] 04/12/2023 13:55:40 03/21/20 23 Lumbar Epidural steroid injection under fluoroscopic guidance completed Bridger Soriano MD [address] , [address], [place], [address], [place] [facility] 03/21/2023 13:28:50 09/01/19 22 Intra-articular Knee Steroid Injection completed Bridger Soriano MD [address] , [address], [place], [address], [place] [facility] 09/02/2021 10:34:04 06/07/19 22 Lumbar Epidural steroid injection under fluoroscopic guidance completed Bridger Soriano MD [address] , [address], [place], [address], [place] [facility] 06/08/2021 08:41:03 03/24/20 21 Intra-articular Knee Steroid Injection completed Bridger Soriano MD [address] , [address], [place], [address], [place] [facility] 03/24/2021 15:38:55 02/08/20 21 Intra-articular Knee Steroid Injection completed Bridger [facility]iano MD [address] [facility] , [address], [place], [address], [place] [facility] 02/08/2021 08:53:02 04/12/20 20 Intra-articular Knee Steroid Injection completed Bridger Soriano MD [address] [facility] , [address], [place], [address], [place] [facility] 04/12/2020 15:35:24 01/20/20 20 Intra-articular Knee Steroid Injection completed Bridger Soriano MD [address] [facility] , [address], [place], [address], [place] [facility] 01/20/2020 15:28:58 11/11/19 16 Intra-articular Knee Steroid Injection completed Bridger Soriano MD [address] [facility] , [address], [place], [address], [place] [facility] 11/11/2015 14:57:23 [...] Name and Address Organization Details Recorded Time 17826 Product containin g penicilli n (product) medicatio n rash Not available Not available 10/28/2015 95770 8001 SNOMED Elena hutchison [place] [facility] 6 15:23:45 27355 Keflex medicatio n Not available Not available Not available 10/28/201559319 7 RxNorm Facia l SweLL LEOBARDO hutchison, [place] - [facility] 2 14:17:48 41171 vancomyci n medicatio n Not available Not available Not available 10/28/201563759 RxNorm Elena hutchison [facility] 6 15:23:45 94936 Iodinated contrast media (substanc e) medicatio n other Not available Not available 10/28/2015 11905 2003 SNOMED Right arm tremo rs Elena [...] mcg/0.5 mL intramuscul ar suspension, kit [facility] 04/12 completed Not Available Not Available Not Available FreeStyle Ladonna 14 Day Sensor kit CHANGE EVERY 14 DAYS DIRECTED active Not Available Not Available No t Available Flucelvax Quad (PF) 60 mcg (15 mcg x 4)/0.5 mL IM syringe 12/17 completed Not Available Not Available Not Available Flucelvax Quad (PF) 60 mcg (15 mcg x 4)/0.5 mL IM syringe [facility] 04/12 completed Not Available Not Available Not Available Ozempic 1 mg/dose (4 mg/3 mL) subcutaneou s pen injector INJECT 1 MG UNDER THE SKIN DIRECTED EVERY 7 DAYS active Not Available Not Available No t Available [employer] Ladonna 3 Sensor device USE FOR CONTINUOU S BLOOD SUGAR MONITORIN G active Not Available Not Available No t Available Ozempic 0.25 mg or 0.5 mg (2 mg/3 mL) subcutaneou s pen injector INJECT 0.5 MG (0.736 ML) SUBCUTANE OUSLY EVERY WEEK FOR 90 DAYS 07/24 completed Not Available Not Available Not Available Vitals Date Recorded Body height Heart rate Oxygen saturation Systolic And Diastolic Provider Name and Address Organization Details Last Updated DateTime 08/14/2023 162.56 cm 72 /min 98 % 122/71 mm[Hg] Judith Diaz [place] - [facility] 08/14/2023 11:34:34 Date Recorded Body height Heart rate Oxygen saturation Pain severity - 0-10 verbal numeric rating [Score] - Reported Systolic And Diastolic Provider Name and Address Organization Details Last Updated DateTime 162.56 cm 72 /min 96 % 8 96/59 mm[Hg] Casie Hughes JENNIFER - [facility] 13:39:02 Date Recorded Body height Heart rate Oxygen saturation Systolic And Diastolic Provider Name and Address Organization Details Last Updated DateTime 12/11/2023 162.56 cm 80 /min 97 % 112/62 mm[Hg] Judith Diaz JENN[facility] 12/11/2023 13:10:01 Date Recorded Body height Oxygen saturation Heart rate Systolic And Diastolic Provider Name and Address Organization Details Last Updated DateTime 12/27/2023 162.56 cm 97 % 88 /min 116/63 mm[Hg] Casie Hughes JENN[facility]ER [facility] 12/27/2023 13:42:06 Date Recorded Body height Heart rate Oxygen saturation Systolic And Diastolic Provider Name and Address Organization Details Last Updated DateTime 04/01/2024 162.56 cm 82 /min 98 % 127/61 mm[Hg] Judith Diaz JENN[facility]ER [facility] 04/01/2024 11:08:45 Social History Question Answer Notes LastModified by Organizat ion Details LastModified Time Tobacco Smoking Status Never Smoker Not Available [employer] 01/30/2020 03:16:10 Which Illicit Or Recreational Drugs Have You Used? No [id number] Information not available 01/30/2020 Education [employer] Information not available 10/28/2015 Live Alone Or With Others? Alone Information not available 10/28/2015 Marital Status Informatio n not available 10/28/2015 Sex: Unknown Functional Status Question Answer Note LastModified by Organizat ion Details LastModified Time What is your level of alcohol consumption? None [id number] Information not available 01/30/2020 Are you currently employed? Yes [id number] Information not available 01/30/2020 What is your [...] and Address Organization Details Recorded Time Novel [id number], all formulations 3 completed Sunni hutchison [place] - [facility] 03/19/2023 11:10:15 Past Encounters Encounter ID Performer Location Encounter Start Date Encounter Closed Date Diagnosis/Indication Diagnosis SNOMED-CT Code Diagnosis ICD10 Code Diagnosis IMO Codes Diagnosis Note [id number] Bridger Soriano MD PAIN OFFICE [address] [facility] [address] [facility] [place] [address] 10/28/2015 14:37:49 11/07/2015 19:52:53 Displacement of lumbar intervertebral disc without myelopathy 65933450 M51.26 Knee pain 23032912 M25.5 62 Lumbosacra l spondylosis without myelopathy 73681364 M47.817 Muscle pain 29523016 M79 .1 [id number] Bridger Soriano MD PAIN OFFICE [address] [place] [place] [address] 11/11/2015 13:35:56 11/11/2015 15:14:43 Knee pain 23611594 M25.562 Displaceme nt of lumbar intervertebral disc without myelopathy 84116418 M51.26 Lumbosacra l spondylosis without myelopathy 94718941 M47.817 Muscle pain 89982494 M79 .1 [id number] Bridger Soriano MD PAIN OFFICE [address] [place] [address] 12/18/2019 13:39:18 12/18/2019 16:05:51 Displacement of lumbar intervertebral disc without myelopathy 20020120 M51. Lumbosacra l spondylosis without myelopathy 78872647 M47.817 Knee pain 40455101 M25.5 62 Muscle pain 06447260 M79 .18 [id number] Bridger Soriano MD PAIN OFFICE [address] [place] [address] 01/20/2020 14:58:58 01/20/2020 16:09:34 Knee pain 16051932 M25.562 Displaceme nt of lumbar intervertebral disc without myelopathy 20020120 M51.26 Lumbosacra l spondylosis without myelopathy 28687155 M47.817 Muscle pain 23471001 M79 .18 Anxiety 58344296 F41.9 [id number] Bridger Soriano MD PAIN OFFICE [address] [place] [address] 04/12/2020 15:05:36 04/12/2020 15:47:49 Knee pain 04722718 M25.562 Displaceme nt of lumbar intervertebral disc without myelopathy 52466951 M51.26 Lumbosacra l spondylosis without myelopathy 22847885 M47.817 Muscle pain 25918484 M79 .18 Anxiety 95242746 F41.9 [id number] Bridger Soriano MD PAIN OFFICE [address] [place] [address] 04/26/2020 15:03:26 04/27/2020 11:19:16 Knee pain 76622716 M25.562 Displaceme nt of lumbar intervertebral disc without myelopathy 78069891 M51.26 Lumbosacra l spondylosis without myelopathy 36691043 M47.817 Muscle pain 61100385 M79 .18 Anxiety 65821278 F41.9 [id number] Bridger Soriano MD PAIN OFFICE [address] [place] [address] 02/07/2021 15:07:39 02/08/2021 08:55:18 Knee pain 02271382 M25.562 Displaceme nt of lumbar intervertebral disc without myelopathy 20761792 M51.26 Lumbosacra l spondylosis without myelopathy 09577725 M47.817 Muscle pain 88262523 M79 .18 Anxiety 99753939 F41.9 [id number] Bridger Soriano MD PAIN OFFICE [address] [place] [address] 03/24/2021 15:06:19 03/24/2021 15:42:22 Knee pain 69640044 M25.562 Displaceme nt of lumbar intervertebral disc without myelopathy 08823203 M51.26 Lumbosacra l spondylosis without myelopathy 02034995 M47.817 Muscle pain 31130592 M79 .18 Anxiety 90862766 F41.9 [id number] Bridger Soriano MD PAIN OFFICE [address] [place] [address] 06/07/2021 13:30:02 06/08/2021 08:44:36 Displacement of lumbar intervertebral disc without myelopathy 20436731 M51.26 Lumbosacra l spondylosis without myelopathy 23138835 M47.817 Knee pain 94993096 M25.5 62 Muscle pain 97925696 M79 .18 [id number] Bridger Soriano MD PAIN OFFICE [address] [place] [address] 08/31/2021 14:13:59 09/02/2021 10:35:50 Knee pain 89114484 M25.562 Displaceme nt of lumbar intervertebral disc without myelopathy 20020120 M51.26 Lumbosacra l spondylosis without myelopathy 02154887 M47.817 Muscle pain 34502567 M79 .18 Anxiety 33880969 F41.9 [id number] Bridger Soriano MD PAIN OFFICE [address] [place] [address] 03/19/2023 10:58:59 03/19/2023 15:21:25 Lumbosacral spondylosis without myelopathy 89991114 M47.817 Displaceme nt of lumbar intervertebral disc without myelopathy 65780183 M51.26 Knee pain 21405655 M25.5 62 Muscle pain 22976326 M79 .18 [id number] Bridger Soriano MD PAIN OFFICE [address] [place] [address] 03/21/2023 13:01:27 03/21/2023 14:25:30 Displacement of lumbar intervertebral disc without myelopathy 91962929 M51.26 Lumbosacra l spondylosis without myelopathy 35088541 M47.817 Knee pain 97783755 M25.5 62 Muscle pain 48604843 M79 .18 Lumbar radiculopathy 128 499837 M54.16 [id number] Bridger Soriano MD PAIN OFFICE [address] [place] [address] 04/12/2023 13:30:59 04/12/2023 13:58:00 Knee pain 35177491 M25.562 Osteoarthr itis of knee 599451775 M17.11 [id number] Bridger Soriano MD PAIN OFFICE [address] [place] [address] 07/25/2023 13:26:45 07/25/2023 14:55:44 Osteoarthritis of knee 924634261 M17.11 [id number] Bridger Soriano MD PAIN OFFICE [address] [place] [address] 08/14/2023 11:28:40 08/14/2023 15:55:58 Displacement of lumbar intervertebral disc without myelopathy 77951501 M51.26 Lumbosacra l spondylosis without myelopathy 26988599 M47.817 Knee pain 73608457 M25.5 62 Muscle pain 06254798 M79 .18 Lumbar radiculopathy 128 711084 M54.16 [id number] Bridger Soriano MD PAIN OFFICE [address] [facility] [place] [address] 10/31/2023 13:33:33 10/31/2023 16:13:12 Knee pain 12016975 M25.562 Osteoarthr itis of knee 525903281 M17.12 [id number] Bridger Soriano MD PAIN OFFICE [address] [place] [address] 12/11/2023 13:07:11 12/11/2023 14:55:52 Lumbar radiculopathy 686366162 M54.16 Displaceme nt of lumbar intervertebral disc without myelopathy 72058324 M51.26 [id number] Bridger Soriano MD PAIN OFFICE [address] [place] [address] 12/27/2023 13:38:10 12/27/2023 17:06:15 Knee pain 05269374 M25.562 Osteoarthr itis of knee 459674196 M17.11 [id number] Bridger Soriano MD PAIN OFFICE [address] [place] [address] 04/01/2024 11:04:31 04/01/2024 16:59:44 Lumbar radiculopathy 388926250 M54.16 Displaceme nt of lumbar intervertebral disc without myelopathy 59305612 M51.26 Health Concerns Section Related Observation LastModified by Organization Detai ls LastModified Time None Recorded Concern Status LastModified by Organization Details LastModified Time None Recorded Advance Directives Directive None Recorded Payers Insurance Date Sequence Insurance Name Policy Number Policy Tatum Covered Member ID Tatum Member ID Guarantor Name 02/15/2025 1 [facility]: [employer] [id number] Belgica Barrios Moran [id number] Belgica Pierce 12/11/2023 1 [facility] [address] Barrios Moran [id number] Belgica Romanor Notes Date Note Type Note Provider Name and Address Organization Details Recorded Time 08/14/2023 text/html She is here for a lumbar epidural steroid injection under fluoroscopic guidance. Bridger Soriano MD [address] , [address], [place], [address], [place] [facility] 08/14/2023 16:05:20 10/31/2023 text/html She is here for a left genicular nerve block under fluoroscopic guidance Bridger Soriano MD [address] , [address], [place], [address], [place] [facility] 11/01/2023 10:27:51 12/11/2023 text/html She is here for a lumbar epidural steroid injection under fluoroscopic guidance. Bridger Soriano MD [address] , [address], [place], [address], [place] [facility] 12/11/2023 16:04:51 12/27/2023 text/html She is here for a right genicular nerve block under fluoroscopic guidance Bridger Soriano MD [address] , [address], [place], [address], [place] [facility] 12/28/2023 09:59:49 04/01/2024 text/html She is here for a lumbar epidural steroid injection under fluoroscopic guidance. Bridger Soriano MD [address] [facility] , [address], [place], [address], [place] [facility] 04/01/2024 17:08:43 OBGyn Episode No OBEpisode recorded.
--- OUTSIDE RECORDS SUMMARY | 2025-03-19 20:47 | XMS_ITS | Data Portability ---
Author Organization [facility] Aditya Owen [place]ONE [place] Address [address] [place] [address] Assessment Encounter Date Assessment Date Assessment LastModified [...] Surgeries total knee replacement (SURG) 2022 023 [email or web address] Not available 3 12:43:00 Imaging XR, knee, 4 or more view [address] [facility], [address], [place], [address], 3 07:44:36 Medication Orders None recorded. Patient TargetsNo targets recorded. Patient InstructionsNo instructions recorded. Reason for Referral None Reported. Problems Name Problem SNOMED Code Status Onset Date Resolution Date Notes Provider Name and Address Organization Details Recorded Time Osteoarthri tis of right knee joint 6627741556980 00 Active 2022 TOYA COMBS PA-C [address] [facility],[address], [place], [address], [place] [facility], [facility] 3 07:47:22 Osteoarthri tis of left knee joint 7124500800607 09 Active 2022 TOYA COMBS PA-C [address], [place], [address], [place] [facility], [facility] 3 07:47:28 Problem Notes None recorded. Medical Equipment None Reported. Allergies Allergen ID Allergen Name Allergen Category Reaction Reaction Severity Criticality Documentation Date Start Date Code Code System Note Provider Name and Address Organization Details Recorded Time 3315 Product containin g penicilli n (product) medicatio n Not available Not available Not available 08/14/2022 39439 8001 SNOMED Kathy Quinn null, [place] [facility], P 3 15:20:29 3316 vancomyci n medicatio n Not available Not available Not available 08/14/2022 28641 RxNorm Kathy Quinn null, [place] [facility], P 3 15:20:51 Medications Name Sig Start [...] Updated DateTime 08/14/2022 165.1 cm 36.6 kg/m2 45204.[address] [place] [facility] P 08/14/2022 15:21:42 Date Recorded Body height Provider Name an d Address Organization Details Last Updated DateTime 08/31/2022 165.1 cm Jenifer Peñaloza [facility] 08/31/2022 16:10:36 Social History None recorded. Functional Status Question Answer Note LastModified by Organizat ion Details LastModified Time Do you use any illicit or recreational drugs? No [email or web address] Information not available 08/14/2022 What is your level of alcohol consumption? None [email or web address] Information not available 08/14/2022 Mental Status None recorded. Family History Relationship Description Onset Age of this Age Resolved Age Notes LastModified by Organization Details LastModified Time Mother Family history of malignant neoplasm [email or web address] Not available 08/14 15:22:22 Father Diabetes mellitus [email or web address] Not available 08/14 15:22:30 Father Heart disease [email or web address] Not available 08/14 15:22:41 Father Hypertensive disorder [email or web address] Not available 08/14 15:22:50 Medical History Condition Response Coronary Artery Disease N Gout Y Hyperthyroidism N MRSA N Blood Transfusion N Emphysema N COPD N Depression N Hypothyroidism N Pacemaker N Vascular Disease N Gastrointestinal Disease N Anxiety Disorder N Autoimmune disease N Arthritis N Cancer N Stroke N High Cholesterol N Neurologic Disorder N Liver Disease N Organ Transplant N Arrhythmia N Rheumatoid Arthritis N Fibromyalgia N Kidney Disease Y Allergies/Hayfever N Adverse Reaction to Anesthesia N Thyroid Problems N Anemia N Brain Injury N Heart Attack ([place]) N Osteopenia N Diabetes Y Bleeding Disorder [...] Codes Diagnosis Note [id number] TOYA COMBS PA-C [address] [address] 08/14/2022 14:58:36 08/14/2022 15:35:52 Pain of right knee joint 2039824279 31187 M25.561 Osteoarthr itis of right knee joint 6535248865 96161 M17.11 Osteoarthr itis of left knee joint 9639897047 59417 M17.12 [id number] uLis Carlos Beltran MD [address] [address] 08/31/2022 16:05:05 08/31/2022 16:27:49 Osteoarthritis of right knee joint 9947984284 26088 M17.11 Arthritis of knee 946789 002 M13.869 Health Concerns Section Related Observation LastModified by Organization Detai ls LastModified Time None Recorded Concern Status LastModified by Organization Details LastModified Time None Recorded Advance Directives Directive None Recorded Payers Insurance Date Sequence Insurance Name Policy Number Policy Tatum Covered Member ID Tatum Member ID Guarantor Name 08/31/2022 1 [place] [employer] [place] [employer] EMPLOYEE PROGRAM [id number] Pierce [id number] Belgica Pierce Notes Date Note Type Note Provider Name and Address Organization Details Recorded Time 08/14/2022 text/html Assessment and Plan: Date of visit 03/15/2021. Seen by me chart in [id number] female with end-stage degenerative joint disease of [...] both of her knees. TOYA COMBS PA-C [address] [place] [address], [address], [place] [facility] 08/15/2022 07:49:50 08/31/2022 text/html HPI: T [...] degrees. The knee is stable within that [id number]-[id number] to AP and ML stress. The alignment of the knee is varus. Muscle strength is normal. Pedal pulses are palpable. Hip examination, including flexion and internal rotation, was negative in that groin pain was not produced. Radiographs of the right knee from August 14, 2022 demonstrate degenerative joint disease with joint space narrowing, osteophyte formation, and subchondral sclerosis. Jejv-km-jnnd articulation in the medial compartment. Assessment/Plan: The [...] right total knee replacement, robotic assisted, at [place] [facility] [place]. Luis Carlos Beltran MD [address], [place], [address], [facility] 08/31/2022 16:35:11 OBGyn Episode No OBEpisode recorded.
--- OUTSIDE RECORDS SUMMARY | 2025-03-19 20:48 | XMS_ITS | Encounter Summary ---
Author Organization [facility] Address [address] [place] [address] Phone Care Team Providers Care Vein Access Technician Name Role Phone Benji Salcedo MD Primary Care Provider [phone] Encounter Details Date Type Department Care Team (Late st Contact Info) Description 12/08/2024 Procedure Pass [facility] [address] [place] [address] Social History Tobacco Use Types Packs/Day Years [...] on filedocumented in this encounter Care Teams Vein Access Technician Relationship Specialty Start Date End Date Benji Salcedo MD [address] [place] [address] PCP - General Internal Medicine 11/04/24 documented as of this encounter Additional Source Comments The information contained in this document represents components of the legal health record. It is not the complete legal health record.[facility]
--- OUTSIDE RECORDS SUMMARY | 2025-03-19 20:48 | XMS_ITS | Clinical Summary ---
Author Organization [facility] Address [address] [address] Phone Care Team Providers Care Helper Driver Name Role Phone Benji Salcedo MD Primary Care Provider [phone] Allergies Active Allergy Reactions Criticality Noted Date [...] mL Soln Take by mouth. Activ e Hospital, Clinic, or Other Facility Administered Medication Ordered Dose Route Frequency Start Date End Date Status triamcinolone acetonide (KENALOG-40) 40 mg/mL injection 40 mg 40 mg IM Once 02/27/2025 05/28/2025 Active BUPivacaine HCl (MARCAINE) 0.5% injection 3 mL 3 mL Infil Once 02/27/2025 05/28/2025 Activ e lidocaine (XYLOCAINE) 1% injection 3 mL 3 mL Infil Once 02/27/2025 05/28/2025 Active Active Problems Problem Noted Date Diagnosed Date Osteoarthritis of ankle and foot 11/13/2024 Peroneal tendinitis of right lower extremity Encounters Date Type Department Care Team Description 02/18/2025 3:00 PM EST Office Visit [facility] [address] [place] [phone] Demetrio Hunt MD Primary osteoarthritis of right knee (Primary Dx) 02/03/2025 Orders Only [facility] [address] [place] [phone] Shalom Yusuf MA Right foot pain (Primary Dx) 01/18/2025 5:11 PM EDT - 01/18/2025 8:40 PM EDT Emergency [facility] [address] [place] [address] Hiral Wilcox MD Discharge Disposition: Home or Self Care 01/15/2025 Telephone [facility] [address] [place] [phone] Thais Sesay RN GELSYNEdvin - - Gilbert from Last 3 Months Social History Tobacco [...] ZOSTER VACCINES (2 of 2) 03/20/2020 01/24/2020 COVID-19 VACCINE ( - season) 2024 04/29/2021, 08/23/2020, 08/02/2020 CREATININE LEVEL 01/18/2026 01/18/2025 RSV VACCINE (1 - 1-dose 75+ series) 2029 Adult Td,Tdap Booster 07/06/2031 07/05/2021 PNEUMOCOCCAL VACCINES (50+ years) Completed 01/17/2022, 04/26/2006 INFLUENZA VACCINE Completed 01/13/2025, , 01/16/2023, Additional history exists SMOKING STATUS SCREENING (Once After 26 Yrs) Completed 02/18/2025 HEPATITIS A VACCINES Aged Out No long [...] SEDIMENT STAT 01/18/2025 6:25 PM EDT URINALYSIS WITH REFLEX TO URINE CULTURE STAT 01/18/2025 6:25 PM EDT URINE CULTURE Routine 01/18/2025 6:25 PM EDT LIPASE STAT 01/18/2025 5:19 PM EDT LFTS (HEPATIC PANEL) STAT 01/18/2025 5:19 PM EDT BASIC METABOLIC PANEL (BMP) STAT 01/18/2025 5:19 PM EDT CBC AND DIFFERENTIAL STAT 01/18/2025 5:19 PM EDT from Last 3 Months Results * (ABNORMAL) Urinalysis w/reflex Urine Culture (01/18/2025 6:25 PM EDT) COLOR BRITTANY(A) Yellow [facility] CLARITY CLOUDY [facility] GLUCOSE Negative Negative [facility] BILI 1+(A) Negative [facility] KETONES Negative Negative [facility] SPECIFIC GRAVITY >1.030 1.005 - 1.030 [facility] BLOOD 3+(A) Negative [facility] PH 5.5 5.0 - 8.0 [facility] Protein-UA 2+(A) Negative [facility] NITRITE Negative Negative [facility] Leukocyte esterase, ur 2+(A) Negative [facility] Urine (Urine) 01/18/2025 6:2 5 PM EDT 01/18/2025 6:43 PM EDT Angelito Mcrae MD LAB URINE ORDERABLES Final Resu lt Performing Organization Address City/[facility]/ZIP Co de Phone Number [address] [address] * (ABNORMAL) Urine Culture (01/18/2025 6:25 PM EDT) Special Requests None Reflexed from [id number] 01/18/2025 7:33 PM EDT [facility] Urine Culture >100,000 colony forming units per mL KLEBSIELLA OXYTOCA(A) 01/20/2025 10:29 AM EDT [facility] Urine Culture >100,000 colony forming units per mL BETA HEMOLYTIC STREPTOCOCCUS GROUP B(A) 01/20/2025 10:29 AM EDT [facility] Urine 01/18/2025 6:25 PM EDT 01/18/2025 [...] ETHOD <=20: Susceptible Comment: Angelito Mcrae MD LAB MICROBIOLOGY CULTURE ORDERA BLES Final Result Performing Organization Address [facility]/ZIP Co de Phone Number [address] [address] * (ABNORMAL) Urine sediment (01/18/2025 6:25 PM EDT) WBC TOO NUMEROUS TO COUNT(A) NONE SEEN /hpf [facility] RBC 50-100(A) NONE SEEN /hpf [facility] URINE EPITHELIAL 5-10(A) NONE SEEN [facility] MUCUS NONE SEEN NONE SEEN /hpf [facility] BACTERIA 2+(A) NONE SEEN /hpf [facility] 01/18/2025 6:25 PM EDT 01/18/2025 6:43 PM EDT Angelito Mcrae MD LAB URINE ORDERABLES Final Resu lt Performing Organization Address City/[facility]/ZIP Co de Phone Number [address] [address] * LFTs (hepatic panel) (01/18/2025 5:19 PM EDT) ALKALINE PHOSPHATASE 92 39 - 117 U/L [facility] TOTAL BILIRUBIN 0.6 0.0 - 1.2 mg/dL [facility] DIRECT BILIRUBIN 0.2 0.0 - 0.2 mg/dL [facility] Bilirubin (Indirect) 0.4 0 - 1.5 mg/dL [facility] AST 18 0 - 37 U/L [facility] ALT 17 0 - 40 U/L [facility] TOTAL PROTEIN 6.6 6.5 - 8.0 g/dL [facility] ALBUMIN 4.2 3.9 - 4.8 g/dL [facility] GLOBULIN 2.4 1 - 4.8 g/dL [facility] A/G Ratio 1.75 1.00 - 4.80 RATIO [facility] Blood 01/18/2025 5:19 PM EDT 01/18/2025 5:23 PM EDT Angelito Mcrae MD LAB BLOOD BKR ORDERABLES Final Result Performing Organization Address City/[facility]/ZIP Co de Phone Number [address] [address] * (ABNORMAL) CBC and differential (01/18/2025 5:19 PM EDT) WBC 13.57(H) 4.00 - 11.00 K/uL [facility] RBC 5.55(H) 4.00 - 5.20 M/uL [facility] HGB 15.2 12.0 - 16.0 g/dL [facility] HCT 47.4(H) 36.0 - 46.0 % [facility] PLT 235 150 - 450 K/uL [facility] MCV 85.4 80.0 - 100.0 fL [facility] MCH 27.4 27.0 - 31.0 pg [facility] MCHC 32.1 32.0 - 36.0 g/dL [facility] RDW 13.1 11.5 - 14.5 % [facility] MPV 8.7 8.4 - 12.0 fL [facility] NRBC 0.00 0.00 /100 WBCs [facility] ABSOLUTE NRBC 0.00 0.00 K/uL [facility] DIFF METHOD Auto [facility] NEUTS 77.8(H) 48.0 - 76.0 % [facility] LYMPHS 13.9(L) 18.0 - 41.0 % [facility] MONOS 5.5 4.0 - 11.0 % [facility] EOS 1.8 0.0 - 5.0 % [facility] BASOS 0.7 0.0 - 1.5 % [facility] Granulocytes, immature (%) 0.3 0.0 - 0.9 % [facility] ABSOLUTE NEUTS 10.58(H) 1.92 - 7.60 K/uL [facility] ABSOLUTE LYMPHS 1.88 0.72 - 4.10 K/uL [facility] ABSOLUTE MONOS 0.74 0.16 - 1.10 K/uL [facility] ABSOLUTE EOS 0.24 0.00 - 0.50 K/uL [facility] ABSOLUTE BASOS 0.09 0.00 - 0.15 K/uL [facility] Granulocytes, immature 0.04 0.00 - 0.09 K/uL [facility] Blood 01/18/2025 5:19 PM EDT 01/18/2025 5:23 PM EDT us Angelito Mcrae MD LAB BLOOD BKR ORDERABLES Final Result [address] [address] * (ABNORMAL) Lipase (01/18/2025 5:19 PM EDT) LIPASE 10(L) 16 - 63 U/L [facility] Blood 01/18/2025 5:19 PM EDT 01/18/2025 5:23 PM EDT Angelito Mcrae MD LAB BLOOD BKR ORDERABLES Final Result Performing Organization Address [facility] Co de Phone Number [address] [address] * (ABNORMAL) Basic metabolic panel (01/18/2025 5:19 PM EDT) SODIUM 143 133 - 146 mmol/L [facility] CHLORIDE 108 96 - 108 mmol/L [facility] POTASSIUM 4.4 3.3 - 5.1 mmol/L [facility] CO2 23 21 - 35 mmol/L [facility] BUN 36(H) 6 - 19 mg/dL [facility] CREATININE 1.40 0.5 - 1.5 mg/dL [facility] GLUCOSE 124(H) 70 - 99 mg/dL [facility] CALCIUM 10.0 8.4 - 10.3 mg/dL [facility] EGFR 40(L) >59 mL/min/1.7 3m2 [facility] Comment:Estimated glomerular filtration rate calculated using the CKD-EPI refit equation. ANION GAP 16 10 - 20 mmol/L [facility] Blood 01/18/2025 5:19 PM EDT 01/18/2025 5:23 PM EDT us Angelito Mcrae MD LAB BLOOD BKR ORDERABLES Final Result Performing Organization Address City/[facility]/ZIP Co de Phone Number [address] [address] from Last 3 Months Insurance [facility] MEDICARE A [facility] MEDICARE [place] [address] [place] [address] MEDICARE A MEDICARE A MEDICARE A MEDICARE [place] [address] [place] [address] MEDICARE A Care Teams Helper Driver Relationship Specialty Start Date End Date Benji Salcedo MD [address] [place] [phone] PCP - General Internal Medicine 11/04/24 Additional Source Comments The information contained in this document represents components of the legal health record. It is not the complete legal health record.[facility]
--- OUTSIDE RECORDS SUMMARY | 2025-03-19 20:48 | XMS_ITS | Clinical Summary ---
Author Organization [facility] Prior to 09/13/24 Address [address] [place] [address] Care Team Providers Care Lead Assistant Manager Name Role Phone Benji Salcedo MD [...] age to complete this topic Care Teams Lead Assistant Manager Relationship Specialty Start Date End Date Benji Salcedo MD PCP - General Internal Medicine 09/10/14
--- OUTSIDE RECORDS SUMMARY | 2025-03-19 20:48 | XMS_ITS | Clinical Summary ---
Author Organization [facility] Address [address] [place] [address] Phone Care Team Providers Care Senior Tableau Developer Name Role Phone Benji Salcedo MD Primary Care Provider [phone] Surgical History Surgery Date Site/Laterality Comments SECTION [...] complete this topic Insurance MEDICARE Care Teams Senior Tableau Developer Relationship Specialty Start Date End Date Benji Salcedo MD PCP - General Internal Medicine 04/02/08
== END 2025-03-19 14:13 | disposition home or self-care (01) ==
LOC: HO.HKASLDS 14:12
PROVIDERS: PCP Internal Medicine; Visit Provider Student in an Organized Health Care Education/Training Program
DX: L03.116 Cellulitis of left lower limb (principal); M10.9 Gout, unspecified; M76.821 Posterior tibial tendinitis, right leg; M76.72 Peroneal tendinitis, left leg; B35.1 Tinea unguium; Z01.812 Encounter for preprocedural laboratory examination
CPT/HCPCS: 36415; 84550; 85025; 85652; 86140

== ENCOUNTER 2025-03-20 14:57 | Outpatient (REF) | payer BC, SELFPAY ==
--- OUTSIDE RECORDS SUMMARY | 2025-01-20 09:15 | XMS_ITS ---
Author Organization [facility] Address [address] [place] [address] Care Team Providers Care Director External Communications Name Role Phone HELENE QUEZADA Primary Care [...] Drug Allergy Activ e REASON FOR VISIT ER f/u abnormal results, had flu vacc already MEDICATIONS Medication SIG (Take, Route, Frequency, Duration) Notes Start Date End Date Status Furosemide 20 MG 1 tablet Orally Once a day prn for 30 days Active Ozempic (2 MG/DOSE) 8 MG/3ML as directed Subcutaneous every 7 days 10/01/2024 Active Acetaminophen-Codeine 300-30 MG TAKE 1 TABLET NEEDED BY MOUTH 3 TIMES A DAY FOR 7 DAYS for 7 12/10/2024 Active FreeStyle Ladonna 3 Sensor - as directed applied to skin as directed for 90 days Active Nystatin 691234 UNIT/GM 1 application Ex ternally Twice a day for 30 day(s) 06/13/2023 Active Metoprolol Tartrate 50 MG 1 tablet with food Orally Twice a day Active amLODIPine-Olmesartan 10-20 MG 1 tablet Orally Once a day Active Allopurinol 100 MG 1 tablet Orally Once a day Not-Taking SOCIAL HISTORY Tobacco Use: Social History Observation Description Date Details (start date - stop date) Never Smoker NA - NA Sex Assigned At : Social History Observation Description Sex Assigned At Unknown Smoking Question Answer Notes Are you a: never smoker Section Notes: pt never smoke PROBLEMS Problem Type ICD Code Onset Dates Problem Status W/U Status Risk SNOMED Code Notes Problem Stage 3a chronic kidney disease (CKD) (N18.31) Active confirmed 327056072 VITAL SIGNS Height 62.5 in 01/20/2025 Weight 188.4 lbs 01/20/2025 Blood pressure systolic 124 mm Hg 01/21/20 25 Blood pressure diastolic 70 mm Hg 025 BMI 33.91 kg/m2 01/20/2025 Encounters Encounter Location Date Provider Diagnosis [facility] [address] [place] [address] 01/20/2025 [facility] Right flank pain R10.A1 ; Acute UTI (urinary tract infection) N39.0 ; Gross hematuria R31.0 ; Essential (primary) hypertension I10 ; Right foot pain M79.671 ; Stage 3a chronic kidney disease (CKD) N18.31 and Type 2 diabetes mellitus without complication, without long-term current use of insulin E11.9 ASSESSMENTS Encounter Date Diagnosis Assessment Notes Treatment Notes Treatment Clinical Notes Section Notes 01/20/2025 Right flank pain (ICD-10 - R10.A1) 1. UTI: Review of culture from [facility] shows Klebsiella which is sensitive to her current Macrodantin. Will continue same 2. Right flank pain with gross hematuria: Question underlying stone as a source of infection. Will check a CT with renal stone protocol. Further recommendations pending results 3. Hypertension: Stable on current amlodipine/olmesar wood and metoprolol. Will continue same 4. Right foot pain: Finally improved after cortisone injection with podiatry in [place]. Underlying degenerative arthritis appears to have been the source of her symptoms. Will follow 5. Stage IIIa chronic kidney disease: Stable on current medical therapy. Knows to avoid NSAIDs. She has upcoming follow-up with Dr. Patton from nephrology 6. Type 2 diabetes mellitus: Improved on Ozempic. Will continue present dosing 01/20/2025 Acute UTI (urinary tract infection) (ICD-10 - N39.0) 1. UTI: Review of culture from [facility] shows Klebsiella which is sensitive to her current Macrodantin. Will continue same 2. Right flank pain with gross hematuria: Question underlying stone as a source of infection. Will check a CT with renal stone protocol. Further recommendations pending results 3. Hypertension: Stable on current amlodipine/olmesar wood and metoprolol. Will continue same 4. Right foot pain: Finally improved after cortisone injection with podiatry in [place]. Underlying degenerative arthritis appears to have been the source of her symptoms. Will follow 5. Stage IIIa chronic kidney disease: Stable on current medical therapy. Knows to avoid NSAIDs. She has upcoming follow-up with Dr. Patton from nephrology 6. Type 2 diabetes mellitus: Improved on Ozempic. Will continue present dosing 01/20/2025 Gross hematuria (ICD-10 - R31.0) 1. UTI: Review of culture from [facility] shows Klebsiella which is sensitive to her current Macrodantin. Will continue same 2. Right flank pain with gross hematuria: Question underlying stone as a source of infection. Will check a CT with renal stone protocol. Further recommendations pending results 3. Hypertension: Stable on current amlodipine/olmesar wood and metoprolol. Will continue same 4. Right foot pain: Finally improved after cortisone injection with podiatry in [place]. Underlying degenerative arthritis appears to have been the source of her symptoms. Will follow 5. Stage IIIa chronic kidney disease: Stable on current medical therapy. Knows to avoid NSAIDs. She has upcoming follow-up with Dr. Patton from nephrology 6. Type 2 diabetes mellitus: Improved on Ozempic. Will continue present dosing 01/20/2025 Essential (primary) hypertension (ICD-10 - I10) 1. UTI: Review of culture from [facility] shows Klebsiella which is sensitive to her current Macrodantin. Will continue same 2. Right flank pain with gross hematuria: Question underlying stone as a source of infection. Will check a CT with renal stone protocol. Further recommendations pending results 3. Hypertension: Stable on current amlodipine/olmesar wood and metoprolol. Will continue same 4. Right foot pain: Finally improved after cortisone injection with podiatry in [place]. Underlying degenerative arthritis appears to have been the source of her symptoms. Will follow 5. Stage IIIa chronic kidney disease: Stable on current medical therapy. Knows to avoid NSAIDs. She has upcoming follow-up with Dr. Patton from nephrology 6. Type 2 diabetes mellitus: Improved on Ozempic. Will continue present dosing 01/20/2025 Right foot pain (ICD-10 - M79.671) 1. UTI: Review of culture from [facility] shows Klebsiella which is sensitive to her current Macrodantin. Will continue same 2. Right flank pain with gross hematuria: Question underlying stone as a source of infection. Will check a CT with renal stone protocol. Further recommendations pending results 3. Hypertension: Stable on current amlodipine/olmesar wood and metoprolol. Will continue same 4. Right foot pain: Finally improved after cortisone injection with podiatry in [place]. Underlying degenerative arthritis appears to have been the source of her symptoms. Will follow 5. Stage IIIa chronic kidney disease: Stable on current medical therapy. Knows to avoid NSAIDs. She has upcoming follow-up with Dr. Patton from nephrology 6. Type 2 diabetes mellitus: Improved on Ozempic. Will continue present dosing 01/20/2025 Stage 3a chronic kidney disease (CKD) (ICD-10 - N18.31) 1. UTI: Review of culture from [facility] shows Klebsiella which is sensitive to her current Macrodantin. Will continue same 2. Right flank pain with gross hematuria: Question underlying stone as a source of infection. Will check a CT with renal stone protocol. Further recommendations pending results 3. Hypertension: Stable on current amlodipine/olmesar wood and metoprolol. Will continue same 4. Right foot pain: Finally improved after cortisone injection with podiatry in [place]. Underlying degenerative arthritis appears to have been the source of her symptoms. Will follow 5. Stage IIIa chronic kidney disease: Stable on current medical therapy. Knows to avoid NSAIDs. She has upcoming follow-up with Dr. Patton from nephrology 6. Type 2 diabetes mellitus: Improved on Ozempic. Will continue present dosing 01/20/2025 Type 2 diabetes mellitus without complication, without long-term current use of insulin (ICD-10 - E11.9) 1. UTI: Review of culture from [facility] shows Klebsiella which is sensitive to her current Macrodantin. Will continue same 2. Right flank pain with gross hematuria: Question underlying stone as a source of infection. Will check a CT with renal stone protocol. Further recommendations pending results 3. Hypertension: Stable on current amlodipine/olmesar wood and metoprolol. Will continue same 4. Right foot pain: Finally improved after cortisone injection with podiatry in [place]. Underlying degenerative arthritis appears to have been the source of her symptoms. Will follow 5. Stage IIIa chronic kidney disease: Stable on current medical therapy. Knows to avoid NSAIDs. She has upcoming follow-up with Dr. Patton from nephrology 6. Type 2 diabetes mellitus: Improved on Ozempic. Will continue present dosing PLAN OF TREATMENT Medication Medication Name Sig Start Date Stop Date Notes Ozempic (2 MG/DOSE) 8 MG/3ML as directed Subcutaneous every 7 days 10/01/2024 Metoprolol Tartrate 50 MG 1 tablet with food Orally Twice a day amLODIPine-Olmesartan 10-20 MG 1 tablet Orally Once a day Next Appt Details Provider Name:HELENE QUEZADA , 04/17/2025 03:15:00 PM, [address] [place] [address], [phone], Progress Notes * Examination Category Sub-Category Detail Notes Category Not es General Examination Heart: RSR, normal S1S2 Lungs: clear to auscultatio n Abdomen: Better tenderness to palpation of the right lower quadrant, no guarding or rebound Right CVA tenderness to palpation Extremities: no edema General Appearance no apparent distress , pleasant Psych: alert, oriented X 3 Other normal affect History and Physical Notes * HPI (History of Present Illness) Category Sub-Category Detail Notes Category Not es General Patient went to [facility] Sunday - with hematuria - wasd dx with URI and started on macrodantin. She reports hematuria stopped but still has pelvic pressure and right flank pain. No fever or chills. Did not have CT scan in ED. Has had some chills.
--- OUTSIDE RECORDS SUMMARY | 2025-01-26 07:27 | XMS_ITS ---
Author Organization [facility] Address [address] [place] [address] Care Team Providers Care Manager Enterprise Content Management Name Role Phone HELENE QUEZADA Primary Care Provider [phone] REASON FOR VISIT (FYI) CT Scan Encounters Encounter Location Date Provider Diagnosis [address] [address] 01/26/2025 HELENE QUEZADA PLAN OF TREATMENT Next Appt Details Provider Name:HELENE QUEZADA , 04/17/2025 03:15:00 PM, [address] [place], [phone],
--- OUTSIDE RECORDS SUMMARY | 2025-02-20 06:30 | XMS_ITS ---
Author Organization [facility] Address [address] [place] [address] Care Team Providers Care Supervisor Cutting And Sewing Room Name Role Phone HELENE QUEZADA Primary Care Provider REASON FOR VISIT Gout Encounters Encounter Location Date Provider Diagnosis [address] [address] 02/20/2025 HELENE QUEZADA PLAN OF TREATMENT Next Appt Details Provider Name:HELENE QUEZADA , 04/17/2025 03:15:00 PM, [address] [place], [address],
--- OUTSIDE RECORDS SUMMARY | 2025-02-23 09:45 | XMS_ITS ---
Author Organization [facility] Address [address] [place] [address] Care Team Providers Care Billet Cutter Name Role Phone HELENE UQEZADA Primary Care Provider [phone] ALLERGIES Allergen (clinical drug ingredient) Drug/Non Drug [...] Drug Allergy Activ e REASON FOR VISIT LEFT great toe red, painful MEDICATIONS Medication SIG (Take, Route, Frequency, Duration) Notes Start Date End Date Status Bactrim 400-80 MG 1 tablet Orally Once a day for 14 day(s) 02/23/2025 Active amLODIPine-Olmesartan 10-20 MG 1 tablet Orally Once a day A ctive Ozempic (2 MG/DOSE) 8 MG/3ML as directed Subcutaneous every 7 days 10/01/2024 Active Allopurinol 100 MG 2 tablets Orally Onc e a day Active Furosemide 20 MG 1 tablet Orally Once a day for 30 days Active FreeStyle Ladonna 3 Sensor - as directed a pplied to skin as directed for 90 days Active Nystatin 209325 UNIT/GM 1 application Ex ternally Twice a day for 30 day(s) 06/13/2023 Active Metoprolol Tartrate 50 MG 1 tablet with food Orally Twice a day Active SOCIAL HISTORY Tobacco Use: Social History Observation Description Date Details (start date - stop date) Never Smoker NA - NA Sex Assigned At : Social History Observation Description Sex Assigned At Unknown Smoking Question Answer Notes Are you a: never smoker Section Notes: pt never smoke VITAL SIGNS Height 62.5 in 02/23/2025 Weight 184.8 lbs 02/23/2025 Blood pressure systolic 118 mm Hg 02/24/20 25 Blood pressure diastolic 68 mm Hg 025 BMI 33.26 kg/m2 02/23/2025 Encounters Encounter Location Date Provider Diagnosis [facility] [address] [place] [address] 02/23/2025 HELENE QUEZADA Paronychia of toe of left foot L03.032 ; Essential (primary) hypertension I10 and Type 2 diabetes mellitus without complication, without long-term current use of insulin E11.9 ASSESSMENTS Encounter Date Diagnosis Assessment Notes Treatment Notes Treatment Clinical Notes Section Notes 02/23/2025 Paronychia of toe of left foot (ICD-10 - L03.032) 1. Paronychia left great toe: Will treat with Bactrim single strength twice a day for a week. She is allergic to penicillin and doxycycline. Also recommended warm soaks and she will let me know if not improving 2. Hypertension: Stable on present therapy. No changes made today 3. Type 2 diabetes mellitus: Well-controlled on current Ozempic. Will follow 02/23/2025 Essential (primary) hypertension (ICD-10 - I10) 1. Paronychia left great toe: Will treat with Bactrim single strength twice a day for a week. She is allergic to penicillin and doxycycline. Also recommended warm soaks and she will let me know if not improving 2. Hypertension: Stable on present therapy. No changes made today 3. Type 2 diabetes mellitus: Well-controlled on current Ozempic. Will follow 02/23/2025 Type 2 diabetes mellitus without complication, without long-term current use of insulin (ICD-10 - E11.9) 1. Paronychia left great toe: Will treat with Bactrim single strength twice a day for a week. She is allergic to penicillin and doxycycline. Also recommended warm soaks and she will let me know if not improving 2. Hypertension: Stable on present therapy. No changes made today 3. Type 2 diabetes mellitus: Well-controlled on current Ozempic. Will follow PLAN OF TREATMENT Medication Medication Name Sig Start Date Stop Date Notes Bactrim 400-80 MG 1 tablet Orally Once a day for 14 day(s) 02/23/2025 amLODIPine-Olmesartan 10-20 MG 1 tablet Orally Once a day Ozempic (2 MG/DOSE) 8 MG/3ML as directed Subcutaneous every 7 days 10/01/2024 Metoprolol Tartrate 50 MG 1 tablet with food Orally Twice a day Next Appt Details Provider Name:HELENE QUEZADA , 04/17/2025 03:15:00 PM, [address] [facility], [place], [address], Progress Notes * Examination Category Sub-Category Detail Notes Category Not es General Examination Heart: RSR, normal S1S2 Lungs: clear to auscultatio n Extremities: no edema General Appearance no apparent distress , pleasant Psych: alert, oriented X 3 Other normal affect History and Physical Notes * HPI (History of Present Illness) Category Sub-Category Detail Notes Category Not es General Right knee giving alot of pain - Synvisc denied by insurance - debating surgery. Patient c/o new pain in left great toe - at tip - has become reddedned as well. No fever or chills. Patient reports tolerating the Ozempic well. She has occasional constipation but no nausea or heartburn at present.
--- OUTSIDE RECORDS SUMMARY | 2025-03-02 06:01 | XMS_ITS ---
Author Organization [facility] Address [address] [place] [address] Care Team Providers Care Application Specialist Name Role Phone HELENE QUEZADA Primary Care Provider [phone] REASON FOR VISIT L. toe infection update/diarrhea Encounters Encounter Location Date Provider Diagnosis [address] [address] 03/02/2025 HELENE QUEZADA Acute diarrhea R19.7 ASSESSMENTS Encounter Date Diagnosis Assessment Notes Treatment Notes Treatment Clinical Notes Section Notes 03/02/2025 Acute diarrhea (ICD-10 - R19.7) PLAN OF TREATMENT Future Test Test Name Order Date GI Profile, Stool, [id number] 03/02/2025 Next Appt Details Provider Name:HELENE SANDOVALFORD , 04/17/2025 03:15:00 PM, [address] [place] [address], [phone],
--- OUTSIDE RECORDS SUMMARY | 2025-03-02 10:17 | XMS_ITS ---
Author Organization [facility] Address [address] [place] [address] Care Team Providers Care Inspector Canned Food Reconditioning Name Role Phone HELENE QUEZADA Primary Care Provider [phone] REASON FOR VISIT question re antibiotic Encounters Encounter Location Date Provider Diagnosis [address] [address] 03/02/2025 HELENE QUEZADA PLAN OF TREATMENT Next Appt Details Provider Name:HELENE QUEZADA , 04/17/2025 03:15:00 PM, [address] [place], [address],
--- OUTSIDE RECORDS SUMMARY | 2025-03-05 06:47 | XMS_ITS ---
Author Organization [facility] Address [address] [place] [address] Care Team Providers Care Web Designer Name Role Phone HELENE QUEZADA Primary Care Provider [phone] REASON FOR VISIT diarrhea/toe Encounters Encounter Location Date Provider Diagnosis [address] [address] 03/05/2025 HELENE QUEZADA PLAN OF TREATMENT Next Appt Details Provider Name:HELENE QUEZADA , 04/17/2025 03:15:00 PM, [address] [place], [address],
--- OUTSIDE RECORDS SUMMARY | 2025-03-05 06:48 | XMS_ITS ---
Author Organization [facility] Address [address] [place] [address] Care Team Providers Care Threshing Machine Operator Name Role Phone HELENE QUEZADA Primary Care Provider REASON FOR VISIT Ozempic PA Encounters Encounter Location Date Provider Diagnosis [address] [address] 03/05/2025 HELENE QUEZADA PLAN OF TREATMENT Next Appt Details Provider Name:HELENE QUEZADA , 04/17/2025 03:15:00 PM, [address] [place], [address],
--- OUTSIDE RECORDS SUMMARY | 2025-03-05 06:49 | XMS_ITS ---
Author Organization [facility] Address [address] [place] [address] Care Team Providers Care Staff Developer Name Role Phone HELENE QUEZADA Primary Care Provider [phone] REASON FOR VISIT FreeStyle Ladonna MEDICATIONS Medication SIG (Take, Route, Frequency, Duration) Notes Start Date End Date Status FreeStyle Ladonna 3 Plus Sensor - as directed applied to skin every 15 days for 30 day(s) 03/05/2025 Active Encounters Encounter Location Date Provider Diagnosis [facility] [address] [place] [phone] 03/05/2025 HELENE QUEZADA Type 2 diabetes mellitus without complication, without long-term current use of insulin E11.9 ASSESSMENTS Encounter Date Diagnosis Assessment Notes Treatment Notes Treatment Clinical Notes Section Notes 03/05/2025 Type 2 diabetes mellitus without complication, without long-term current use of insulin (ICD-10 - E11.9) PLAN OF TREATMENT Medication Medication Name Sig Start Date Stop Date Notes FreeStyle Ladonna 3 Sensor - as directed a pplied to skin as directed FreeStyle Ladonna 3 Plus Senso r - as directed applied to skin every 15 days for 30 day(s) 03/05/2025 Next Appt Details Provider Name:HELENE QUEZADA , 04/17/2025 03:15:00 PM, [address] [place], [address],
--- OUTSIDE RECORDS SUMMARY | 2025-03-09 08:33 | XMS_ITS ---
Author Organization [facility] Address [address] [place] [address] Care Team Providers Care Faa Certified Powerplant Mechanic Name Role Phone HELENE QUEZADA Primary Care Provider REASON FOR VISIT Infected left big toe Encounters Encounter Location Date Provider Diagnosis [address] [address] 03/09/2025 HELENE QUEZADA PLAN OF TREATMENT Next Appt Details Provider Name:HELENE QUEZADA , 04/17/2025 03:15:00 PM, [address] [place], [address],
--- NOTE | ~2025-03-20 | XR_ITS ---
Exam: XR FOOT 3 OR MORE VIEWS BILATERAL, bilateral foot x-rays TECHNIQUE: AP, OBL and lateral views lower extremity, bilateral feet INDICATION: L03.116 - Cellulitis of left lower limb COMPARISON: None available. FINDINGS: RIGHT FOOT: On the oblique view, there is calcification projecting plantar and lateral to the margin of the central calcaneal body likely a prominent peroneal tubercle or other bony prominence. There are small calcaneal spurs. There are atherosclerotic calcifications. LEFT FOOT: There is hallux valgus deformity. No erosions are identified. There are small calcaneal spurs. There are atherosclerotic calcifications. XR/XR Foot Aj 3V IMPRESSION: Right foot: No acute bony abnormality. Mildly prominent peroneal tubercle. Correlate for signs symptoms of peroneal tendon pathology identified. Left foot: No acute bony abnormality. Hallux valgus. Electronically signed by: Jeffery Mosquera MD 03/20/2025 03:26 PM [facility] [place]
--- OUTSIDE RECORDS SUMMARY | 2025-03-20 19:04 | XMS_ITS | Patient Health Record ---
Author Organization [facility] Address [address] [place] [address] Care Team Providers Care Vp Lab Name Role Phone HELENE QUEZADA Primary Care Provider [phone] ALLERGIES Allergen (clinical drug ingredient) Drug/Non Drug [...] REASON FOR REFERRAL Reason (2)New patient Appt [facility] Orthopedics Diagnosis 1 Primary osteoarthrit is of right knee (M17.11) Referral Organization [facility] Bridger mosher Referring Provider First [...] Foot pain, left (M79 .672) Referral Organization [facility] vidhi Referring Provider First Name HELENE Referring Provider Last Name PILAR Referring Provider Speciality Internal edicine Referred Provider Specialty Physical The rapy Referral Priority Routine Reason (faed thru EMR 5) New patient appt CT Assistant Professor Nurse Education, [address] [place] [address] fax: [phone]. please send MRI Diagnosis 1 Tendinitis of right foot (M77.51) Referral Organization [facility] As sociates Referring Provider First Name HELENE Referring Provider Last Name PILAR Referring Provider Speciality Internal M edicine Referred Provider Specialty Orthopedic S urgery General Notes Radha RAMIREZ CMA 04/2024 02:28:47 PM >Per patient [place], has appointment with your physician 10/20/24. Will send MRI result/report to you separately., Mary lElen RAMIREZ Admin 11/10/2024 08:52:16 AM > no referral requierd with ppo plan, Mary Ellen RAMIREZ Admin 02/19/2025 09:21:49 AM > nrr>encounter closed Referral Priority Urgent Referral Appointment Date 10/20/2024 MEDICATIONS Medication SIG (Take, Route, Frequency, Duration) Notes Start Date End Date Status Bactrim 400-80 MG 1 tablet Orally Once a day for 14 day(s) 02/23/2025 Active amLODIPine-Olmesartan 10-20 MG 1 tablet Orally Once a day A ctive Nystatin 207241 UNIT/GM 1 application Ex ternally Twice a day for 30 day(s) 06/13/2023 Active Ozempic (2 MG/DOSE) 8 MG/3ML as directed Subcutaneous every 7 days 10/01/2024 Active Allopurinol 100 MG 2 tablets Orally Onc e a day Active FreeStyle Ladonna 3 Plus Sensor - as directed applied to skin every 15 days for 30 day(s) 03/05/2025 Active Furosemide 20 MG 1 tablet Orally Once a day for 30 days Active Metoprolol Tartrate 50 MG 1 tablet with food Orally Twice a day Active IMMUNIZATIONS Vaccine Route Administration Date Status [...] Code Notes Problem Cough (R05) Active confirmed 98739309 Problem Obstructive sleep apnea (G47.33) Active confirmed 59387501 Problem GERD without esophagitis (K21.9) Active confirmed 799214775 Problem Mixed hyperlipidemia (E78.2) Active confirmed 830832096 Problem Anxiety (F41.9) Active confirmed 286195 02 Problem Primary osteoarthritis of both knees (M17.0) Active confirmed 224132642 Problem Primary osteoarthritis of right knee (M17.11) Active confirmed 125814057017055 Problem Constipation, unspecified constipation type (K59.00) Active confirmed 49161927 Problem Gouty arthritis (M10.9) Active confirmed 99412020 Problem Acute idiopathic gout of right foot (M10.071) Active confirmed 78185856 Problem Bronchitis with bronchospasm (J20.9) Active confirmed 00770003 Problem Meningioma (D32.9) Active confirmed 688047505 Problem Leukocytosis, unspecified type (D72.829) Active confirmed 488555364 Problem Type 2 diabetes mellitus with hyperglycemia, without long-term current use of insulin (E11.65) Active confirmed Hyperglycem ia due to type 2 diabetes mellitus (569961669058416) Problem Type 2 diabetes mellitus without complication, without long-term current use of insulin (E11.9) Active confirmed Type II diab etes mellitus without complication (347964252) Problem Stage 3a chronic kidney disease (CKD) (N18.31) Active confirmed 204214110 Problem Persistent depressive disorder (F34.1) Active confirmed 4984569064 Problem Stasis dermatitis (I87.2) Active confirmed 61931019 Problem Other fatigue (R53.83) 04/12/20 Active confirmed Fatigue (81653543) Problem Essential (primary) hypertension (I10) 04/12/20 Active confirmed Essential hypertension (97065422) Problem Dorsalgia, unspecified (M54.9) 04/12/20 Active confirmed Backache (903175719) VITAL SIGNS Blood pressure diastolic 68 mm Hg 02/23/2025 Height 62.5 in 02/23/2025 Blood pressure systolic 118 mm Hg 02/23/2025 Weight 184.8 lbs 02/23/2025 BMI 33.26 kg/m2 02/23/2025 Encounters Encounter Location Date Provider Diagnosis [address] [address] 03/25/2024 HELENE ATHENS Essential (primary) hypertension I10 ; Type 2 diabetes mellitus with hyperglycemia, without long-term current use of insulin E11.65 ; Mixed hyperlipidemia E78.2 ; Persistent depressive disorder F34.1 ; Meningioma D32.9 ; Primary osteoarthritis of right knee M17.11 and Encounter for general adult medical examination without abnormal findings Z00.[address] [address] 03/28/2024 HELENE ATHENS Acute diarrhea R19.[address] [address] 04/03/[address] [address] 04/03/[address] [address] 04/15/2024 HELENE ATHENS Acute diarrhea R19.[address] [address] 04/30/[address] [address] 04/30/2024 HELENE ATHENS Primary osteoarthrit is of right knee M17.[address] [address] 05/02/[address] [address] 05/07/[address] [address] 05/09/[address] [address] 05/09/2024 HELENE ATHENS Acute diarrhea R19.[address] [address] 05/12/2024 [facility] [address] [place] [address] 05/14/2024 [facility] [address] [place] [address] 05/14/2024 [facility] [address] [place] [address] 05/16/2024 [facility] [address] [place] [address] 05/22/2024 [facility] [address] [place] [address] 2024 [facility] [address] [place] [address], [place] [address] 05/29/2024 [facility] [address] [place] [address], [place] [address] 06/03/2024 HELENE SANDOVALFORD Acute diarrhea R19.7 [facility] [address] [place] [address], [place] [address] 06/03/2024 [facility] [address] [place] [address] 06/16/2024 [facility] [address] [place] [address], [place] [address] 06/30/2024 [facility] [address] [place] [address], [place] [address] 07/07/2024 [facility] [address] [place] [address], [place] [address] 07/11/2024 [facility] [address] [place] [address] 07/11/2024 [facility] [address] [place] [address], [place] [address] 07/14/2024 HELENE QUEZADA Essential (primary) hypertension I10 ; Primary osteoarthritis of right knee M17.11 ; Type 2 diabetes mellitus without complication, without long-term current use of insulin E11.9 and Right foot pain M79.671 [facility] [address] [place] [address], [place] [address] 07/15/2024 [facility] [address] [place] [address] 07/18/2024 [facility] Right foot pain M79. 671 [facility] [address] [place] [address] 07/25/2024 [facility] Right foot pain M79. 671 [facility] [address] [place] [address] 08/04/2024 [facility] [address] [place] [address] 08/04/2024 [facility] [address] [place] [address] 08/07/2024 [facility] Essential (primary) hypertension I10 ; Abdominal cramping R10.9 and Foot pain, left M79.672 [facility] [address] [place] [address] 08/11/2024 [facility] [address] [place] [address] 08/14/2024 [facility] [address] [place] [address] 08/20/2024 [facility] [address] [place] [address] 08/21/2024 [facility] Acute idiopathic gou t of right foot M10.071 [facility] [address] [place] [address] 08/25/2024 [facility] [address] [place] [address] 09/03/2024 [facility] [address] [place] [address] 09/09/2024 [facility] [address] [place] [address] 09/11/2024 [facility] [address] [place] [address] 09/15/2024 [facility] Right foot pain M79. 671 ; Essential (primary) hypertension I10 and Gouty arthritis M10.9 [facility] [address] [place] [address] 09/17/2024 [facility] [address] [place] [address] 09/17/2024 [facility] [address] [place] [address] 09/17/2024 HELENE ATHENS Cellulitis of hand L03.[address] [address] 09/23/[address] [address] 10/01/[address] [address] 10/01/2024 [facility] Type 2 diabetes mellitus with hyperglycemia, without long-term current use of insulin E11.65 ; Right foot pain M79.671 ; Essential (primary) hypertension I10 and Traumatic injury of head, initial encounter S09.90XA [address] [address] 10/02/2024 [facility] Right foot pain M79. [address] [address] 10/03/[address] [address] 10/03/[address] [address] 10/03/[address] [address] 10/07/[address] [address] 10/07/[address] [address] 10/10/2024 [facility] Tendinitis of right foot M77.[address] [address] 10/15/[address] [address] 10/23/2024 [facility] Type 2 diabetes mellitus without complication, without long-term current use of insulin E11.9 and Gouty arthritis M10.[address] [address] 11/03/[address] [place] [address] [place] [address] 11/12/2024 [facility] [address] [address] 11/13/2024 [facility] [address] [address] 11/18/2024 [facility] Right foot pain M79. 671 ; Essential (primary) hypertension I10 and Type 2 diabetes mellitus without complication, without long-term current use of insulin E11.9 [facility] [address] [address] 11/18/2024 [facility] Right foot pain M79. [address] [address] 11/19/2024 [facility] [address] [address] 12/16/[address] [address] 12/22/2024 [facility] [address] [address] 01/19/[address] [address] 01/20/2025 [facility] Right flank pain R10 .A1 ; Acute UTI (urinary tract infection) N39.0 ; Gross hematuria R31.0 ; Essential (primary) hypertension I10 ; Right foot pain M79.671 ; Stage 3a chronic kidney disease (CKD) N18.31 and Type 2 diabetes mellitus without complication, without long-term current use of insulin E11.[address] [address] 01/26/[address] [address] 02/20/[address] [address] 02/23/2025 [facility] Paronychia of toe of left foot L03.032 ; Essential (primary) hypertension I10 and Type 2 diabetes mellitus without complication, without long-term current use of insulin E11.[address] [place] [address] 03/02/2025 HELENE SANDOVALFORD Acute diarrhea R19.[address] [place] [address] 03/02/2025 HELENE [facility] [address] [place] [address], [place] [address] 03/05/[address] [place] [address] 03/05/[address] [place] [address] 03/05/2025 HELENE ATHENS Type 2 diabetes mellitus without complication, without long-term current use of insulin E11.[address] [place] [address] 03/09/2025 HELENE SANDOVALFORD ASSESSMENTS Encounter Date Diagnosis Assessment Notes Treatment [...] maintenance: She will book her mammogram at [facility]. Colonoscopy was done in 2021 [...] maintenance: She will book her mammogram at [facility]. Colonoscopy was done in 2021 and is next due in 2026. Fasting labs are up-to-date. She has had her vaccinations 03/28/2024 Acute diarrhea (ICD-10 - R19.7) 04/15/2024 Acute diarrhea (ICD-10 - R19.7) 04/30/2024 Primary osteoarthritis of right knee (ICD-10 - M17.11) 1. Right knee osteoarthritis: Reportedly [id number] and end-stage. Current orthopedic appointment in [place] is not until August and patient does not wish to wait this long. She requests referral to [facility]. We will trial cautious Tylenol with [...] knee: Has a second opinion with the [place] doctor who does the procedure robotically. She [...] knee: Has a second opinion with the [place] doctor who does the procedure robotically. She [...] N39.0) 1. UTI: Review of culture from [facility] shows Klebsiella which is sensitive to [...] R10.A1) 1. UTI: Review of culture from [facility] shows Klebsiella which is sensitive to her [...] Improved on Ozempic. Will continue present dosing 02/23/2025 Essential (primary) hypertension (ICD-10 - I10) [...] Well-controlled on current Ozempic. Will follow 02/23/2025 Paronychia of toe of left foot [...] mellitus: Well-controlled on current Ozempic. Will follow 03/02/2025 Acute diarrhea (ICD-10 - R19.7) 03/05/2025 Type 2 diabetes mellitus without complication, without long-term current use of insulin (ICD-10 - E11.9) 02/23/2025 Type 2 diabetes mellitus without complication, [...] mellitus: Well-controlled on current Ozempic. Will follow 03/25/2024 Mixed hyperlipidemia (ICD-10 - E78.2) 1. [...] maintenance: She will book her mammogram at [facility]. Colonoscopy was done in 2021 and is next due in 2026. Fasting labs are up-to-date. She has had her vaccinations 01/20/2025 Gross hematuria (ICD-10 - R31.0) 1. UTI: Review of culture from [facility] shows Klebsiella which is sensitive to her [...] Improved on Ozempic. Will continue present dosing 11/18/2024 Type 2 diabetes mellitus without complication, [...] Follow on current regimen of nutritional control 07/14/2024 Type 2 diabetes mellitus without complication, without long-term current use of insulin (ICD-10 - E11.9) 1. Hypertension: Well-controlled on present therapy. No changes made today 2. Osteoarthritis right knee: Has a second opinion with the [place] doctor who does the procedure robotically. She [...] I10) 1. UTI: Review of culture from [facility] shows Klebsiella which is sensitive to her [...] knee: Has a second opinion with the [place] doctor who does the procedure robotically. She [...] maintenance: She will book her mammogram at [facility]. Colonoscopy was done in 2021 and is next due in 2026. Fasting labs are up-to-date. She has had her vaccinations 01/20/2025 Right foot pain (ICD-10 - M79.671) 1. UTI: Review of culture from [facility] shows Klebsiella which is sensitive to her [...] maintenance: She will book her mammogram at [facility]. Colonoscopy was done in 2021 and is next due in 2026. Fasting labs are up-to-date. She has had her vaccinations 01/20/2025 Stage 3a chronic kidney disease (CKD) (ICD-10 - N18.31) 1. UTI: Review of culture from [facility] shows Klebsiella which is sensitive to her [...] maintenance: She will book her mammogram at [facility]. Colonoscopy was done in 2021 and is next due in 2026. Fasting labs are up-to-date. She has had her vaccinations 01/20/2025 Type 2 diabetes mellitus without complication, without long-term current use of insulin (ICD-10 - E11.9) 1. UTI: Review of culture from [facility] shows Klebsiella which is sensitive to her [...] on Ozempic. Will continue present dosing 03/25/2024 Encounter for general adult medical examination [...] maintenance: She will book her mammogram at [facility]. Colonoscopy was done in 2021 and is next due in 2026. Fasting labs are up-to-date. She has had her vaccinations PLAN OF TREATMENT Pending Test Test Name Order Date XR Chest 2 views 01/21/2024 regadenoson mibi 11/09/2023 Future Test Test Name Order Date FLUID DIFFERENTIAL 06/22/2014 GI Profile, Stool, [id number] 02/27/2024 GI Profile, Stool, [id number] 06/03/2024 GI Profile, Stool, [id number] 08/07/2024 GI Profile, Stool, [id number] 03/02/2025 Next Appt Details Provider Name:HELENE QUEZADA , 04/17/2025 03:15:00 PM, [address] [place], [address], Insurance Providers Payer Name Payer Address Payer Phone Subscriber Number Group Number Insured Name Patient Relationship to Insured Coverage Start Date Coverage End Date [employer] [address] [place] [phone] [id number] VANESSARBELGICA Self - patient is the insured [...] 1992 Hospitalization History Reason Date(Month/Year) as above Farzad MULLNE Sultana- Abdominal pain, b lood in urine 01/18/25 [facility] Positive for COVID 12/16
--- OUTSIDE RECORDS SUMMARY | 2025-03-20 19:04 | XMS_ITS | Encounter Summary ---
Author Organization [facility] Address [address] [place] [address] Phone Care Team Providers Care Claims Associate Name Role Phone Benji Salcedo MD Primary Care Provider [phone] Encounter Details Date Type Department Care Team (Late st Contact Info) Description 08/15/2022 Telephone [facility] [address] [place] [address] Sue Tinoco Social History Tobacco [...] on filedocumented in this encounter Care Teams Claims Associate Relationship Specialty Start Date End Date Benji Salcedo MD [address] [place] [address] PCP - General 04/26/20 documented as of this encounter
--- OUTSIDE RECORDS SUMMARY | 2025-03-20 19:04 | XMS_ITS | Encounter Summary ---
Author Organization [facility] Address [address] [place] [address] Phone Care Team Providers Care Core Driller Helper Name Role Phone Benji Salcedo MD Primary Care Provider [phone] Encounter Details Date Type Department Care Team (Late st Contact Info) Description 08/29/2021 Telephone [facility] [address] [place] [address] Taqueria Hook MD [address] [place] [address] Social History Tobacco Use Types Packs/Day Years [...] right side of her back. Please advise # [phone] Thank you documented in this encounter Plan of Treatment Not on file documented as of this encounter Visit Diagnoses Not on filedocumented in this encounter Care Teams Core Driller Helper Relationship Specialty Start Date End Date Benji Salcedo MD [address] [facility] [address] [place] [address] PCP - General 04/26/20 documented as of this encounter
--- OUTSIDE RECORDS SUMMARY | 2025-03-20 19:04 | XMS_ITS | Clinical Summary ---
Author Organization [facility] Prior to 09/13/24 Address [address] [place] [address] Care Team Providers Care Chief Psychology Name Role Phone Benji Salcedo MD Primary [...] age to complete this topic Care Teams Chief Psychology Relationship Specialty Start Date End Date Benji Salcedo MD PCP - General Internal Medicine 09/10/14
--- OUTSIDE RECORDS SUMMARY | 2025-03-20 19:04 | XMS_ITS | Clinical Summary ---
Author Organization [facility] Address [address] [place] [address] Phone Care Team Providers Care Fishing Manager Name Role Phone Benji Salcedo MD [...] complete this topic Insurance MEDICARE Care Teams Fishing Manager Relationship Specialty Start Date End Date Benji Salcedo MD PCP - General Internal Medicine 04/02/08
--- OUTSIDE RECORDS SUMMARY | 2025-03-20 19:04 | XMS_ITS | Encounter Summary ---
Author Organization [facility] Address [address] [facility] [address] [place] [address] Phone Care Team Providers Care Top Precipitator Operator Name Role Phone Benji Salcedo MD Primary Care Provider [phone] Benji Salcedo MD Primary Care Provider [phone] Encounter Details Date Type Department Care Team (Late st Contact Info) Description 04/28/2024 Ancillary Orders [facility] Orthopedics at [place] [id number] [facility] [address] [place] [address] Lam Grimes MD [address] [place] [address], [address] [place] [address] [email or web address] Pain (Primary Dx) Social History Tobacco [...] pain documented in this encounter Care Teams Top Precipitator Operator Relationship Specialty Start Date End Date Benji Salcedo MD [address] [place] [address] PCP - General Internal Medicine 12/29/21 11/03/24 Benji Salcedo MD [address] [place] [address] PCP - General Internal Medicine 11/04/24 documented as of this encounter Additional Source Comments The information contained in this document represents components of the legal health record. It is not the complete legal health record.[facility]
--- OUTSIDE RECORDS SUMMARY | 2025-03-20 19:04 | XMS_ITS | Encounter Summary ---
Author Organization [facility] Address [address] [place] [address] Phone Care Team Providers Care Railway Track Plant Operator Name Role Phone Benji Salcedo MD Primary Care Provider [phone] Encounter Details Date Type Department Care Team (Late st Contact Info) Description 07/13/2021 Telephone [facility] [address] [place] [address] Noy Tuttle Social History Tobacco [...] on file documented as of this encounter Functional Status * Question Answer Date of Assessment Author BP 90/60 07/13/2021 3:07 PM Kath Santiago MA Pulse 74 07/13/2021 3:07 PM Kath Santiago MA * BP Location Answer Date of Assessment Author Left upper arm 07/13/2021 3:07 PM Taisha Santiago MA * Question Answer Date of Assessment Author BP 90/60 07/13/2021 3:07 PM Kath Santiago MA * BP Location Answer Date of Assessment Author Left upper arm 07/13/2021 3:07 PM Taisha Santiago MA documented as of this encounter Plan of Treatment Not on file documented as of this encounter Visit Diagnoses Not on filedocumented in this encounter Care Teams Railway Track Plant Operator Relationship Specialty Start Date End Date Benji Salcedo MD [address] [facility] [address] [place] [address] PCP - General 04/26/20 documented as of this encounter
--- OUTSIDE RECORDS SUMMARY | 2025-03-20 19:04 | XMS_ITS | Clinical Summary ---
Author Organization [facility] Address [address] [place] [address] [address] [place] [address] Phone Care Team Providers Care Solar Maintenance Technician Name Role Phone Benji Salcedo MD Primary Care Provider [phone] Allergies Active Allergy Reactions Criticality Noted Date [...] Insurance [facility] Care Teams Solar Maintenance Technician Relationship Specialty Start Date End Date Benji Salcedo MD [address] [place] [address] PCP - General 04/26/20
--- OUTSIDE RECORDS SUMMARY | 2025-03-20 19:05 | XMS_ITS | Clinical Summary ---
Author Organization [facility] Address [address] [address] Phone Care Team Providers Care Pants Maker Name Role Phone Benji Salcedo MD Primary Care Provider [phone] Allergies Active Allergy Reactions Criticality Noted Date [...] Description 02/18/2025 3:00 PM EST Office Visit [facility] [address] [place] [phone] Demetrio Hunt MD Primary osteoarthritis of right knee (Primary Dx) 02/03/2025 Orders Only [facility] [address] [place] [phone] Shalom Yusuf MA Right foot pain (Primary Dx) 01/18/2025 5:11 PM EDT - 01/18/2025 8:40 PM EDT Emergency [facility] [address] [place] [address] Hiral Wilcox MD Discharge Disposition: Home or Self Care 01/15/2025 Telephone [facility] [address] [place] [phone] Thais Sesay RN GELSYNEdvin - - Gilbert [...] (01/18/2025 6:25 PM EDT) COLOR BRITTANY(A) Yellow [facility] CLARITY CLOUDY [facility] GLUCOSE Negative Negative [facility] BILI 1+(A) Negative [facility] KETONES Negative Negative [facility] SPECIFIC GRAVITY >1.030 1.005 - 1.030 [facility] BLOOD 3+(A) Negative [facility] PH 5.5 5.0 - 8.0 [facility] Protein-UA 2+(A) Negative [facility] NITRITE Negative Negative [facility] Leukocyte esterase, ur 2+(A) Negative [facility] Urine (Urine) 01/18/2025 6:2 5 PM EDT 01/18/2025 6:43 PM EDT Angelito Mcrae MD LAB URINE ORDERABLES Final Resu lt Performing Organization Address City/[facility]/ZIP Co de Phone Number [address] [address] * (ABNORMAL) Urine Culture (01/18/2025 6:25 PM EDT) Special Requests None Reflexed from [id number] 01/18/2025 7:33 PM EDT [facility] Urine Culture >100,000 colony forming units per mL KLEBSIELLA OXYTOCA(A) 01/20/2025 10:29 AM EDT [facility] Urine Culture >100,000 colony forming units per mL BETA HEMOLYTIC STREPTOCOCCUS GROUP B(A) 01/20/2025 10:29 AM EDT [facility] Urine 01/18/2025 6:25 PM EDT 01/18/2025 [...] ORDERA BLES Final Result Performing Organization Address [facility]/ZIP Co de Phone Number [address] [address] * (ABNORMAL) Urine sediment (01/18/2025 6:25 PM EDT) WBC TOO NUMEROUS TO COUNT(A) NONE SEEN /hpf [facility] RBC 50-100(A) NONE SEEN /hpf [facility] URINE EPITHELIAL 5-10(A) NONE SEEN [facility] MUCUS NONE SEEN NONE SEEN /hpf [facility] BACTERIA 2+(A) NONE SEEN /hpf [facility] 01/18/2025 6:25 PM EDT 01/18/2025 6:43 PM EDT Angelito Mcrae MD LAB URINE ORDERABLES Final Resu lt Performing Organization Address City/[facility]/ZIP Co de Phone Number [address] [address] * LFTs (hepatic panel) (01/18/2025 5:19 PM EDT) ALKALINE PHOSPHATASE 92 39 - 117 U/L [facility] TOTAL BILIRUBIN 0.6 0.0 - 1.2 mg/dL [facility] DIRECT BILIRUBIN 0.2 0.0 - 0.2 mg/dL [facility] Bilirubin (Indirect) 0.4 0 - 1.5 mg/dL [facility] AST 18 0 - 37 U/L [facility] ALT 17 0 - 40 U/L [facility] TOTAL PROTEIN 6.6 6.5 - 8.0 g/dL [facility] ALBUMIN 4.2 3.9 - 4.8 g/dL [facility] GLOBULIN 2.4 1 - 4.8 g/dL [facility] A/G Ratio 1.75 1.00 - 4.80 RATIO [facility] Blood 01/18/2025 5:19 PM EDT 01/18/2025 5:23 PM EDT Angelito Mcrae MD LAB BLOOD BKR ORDERABLES Final Result Performing Organization Address City/[facility]/ZIP Co de Phone Number [address] [address] * (ABNORMAL) CBC and differential (01/18/2025 5:19 PM EDT) WBC 13.57(H) 4.00 - 11.00 K/uL [facility] RBC 5.55(H) 4.00 - 5.20 M/uL [facility] HGB 15.2 12.0 - 16.0 g/dL [facility] HCT 47.4(H) 36.0 - 46.0 % [facility] PLT 235 150 - 450 K/uL [facility] MCV 85.4 80.0 - 100.0 fL [facility] MCH 27.4 27.0 - 31.0 pg [facility] MCHC 32.1 32.0 - 36.0 g/dL [facility] RDW 13.1 11.5 - 14.5 % [facility] MPV 8.7 8.4 - 12.0 fL [facility] NRBC 0.00 0.00 /100 WBCs [facility] ABSOLUTE NRBC 0.00 0.00 K/uL [facility] DIFF METHOD Auto [facility] NEUTS 77.8(H) 48.0 - 76.0 % [facility] LYMPHS 13.9(L) 18.0 - 41.0 % [facility] MONOS 5.5 4.0 - 11.0 % [facility] EOS 1.8 0.0 - 5.0 % [facility] BASOS 0.7 0.0 - 1.5 % [facility] Granulocytes, immature (%) 0.3 0.0 - 0.9 % [facility] ABSOLUTE NEUTS 10.58(H) 1.92 - 7.60 K/uL [facility] ABSOLUTE LYMPHS 1.88 0.72 - 4.10 K/uL [facility] ABSOLUTE MONOS 0.74 0.16 - 1.10 K/uL [facility] ABSOLUTE EOS 0.24 0.00 - 0.50 K/uL [facility] ABSOLUTE BASOS 0.09 0.00 - 0.15 K/uL [facility] Granulocytes, immature 0.04 0.00 - 0.09 K/uL [facility] Blood 01/18/2025 5:19 PM EDT 01/18/2025 5:23 PM EDT us Angelito Mcrae MD LAB BLOOD BKR ORDERABLES Final Result [address] [address] * (ABNORMAL) Lipase (01/18/2025 5:19 PM EDT) LIPASE 10(L) 16 - 63 U/L [facility] Blood 01/18/2025 5:19 PM EDT 01/18/2025 5:23 PM EDT Angelito Mcrae MD LAB BLOOD BKR ORDERABLES Final Result Performing Organization Address [facility] Co de Phone Number [address] [address] * (ABNORMAL) Basic metabolic panel (01/18/2025 5:19 PM EDT) SODIUM 143 133 - 146 mmol/L [facility] CHLORIDE 108 96 - 108 mmol/L [facility] POTASSIUM 4.4 3.3 - 5.1 mmol/L [facility] CO2 23 21 - 35 mmol/L [facility] BUN 36(H) 6 - 19 mg/dL [facility] CREATININE 1.40 0.5 - 1.5 mg/dL [facility] GLUCOSE 124(H) 70 - 99 mg/dL [facility] CALCIUM 10.0 8.4 - 10.3 mg/dL [facility] EGFR 40(L) >59 mL/min/1.7 3m2 [facility] Comment:Estimated glomerular filtration rate calculated using the CKD-EPI refit equation. ANION GAP 16 10 - 20 mmol/L [facility] Blood 01/18/2025 5:19 PM EDT 01/18/2025 5:23 PM EDT us Angelito Mcrae MD LAB BLOOD BKR ORDERABLES Final Result Performing Organization Address City/[facility]/ZIP Co de Phone Number [address] [address] from Last 3 Months Insurance [facility] MEDICARE A [facility] MEDICARE [place] [address] [place] [address] MEDICARE A MEDICARE A MEDICARE A MEDICARE [place] [address] [place] [address] MEDICARE A Care Teams Pants Maker Relationship Specialty Start Date End Date Benji Salcedo MD [address] [place] [phone] PCP - General Internal Medicine 11/04/24 Additional Source Comments The information contained in this document represents components of the legal health record. It is not the complete legal health record.[facility]
--- OUTSIDE RECORDS SUMMARY | 2025-03-20 19:05 | XMS_ITS | Encounter Summary ---
Author Organization [facility] Address [address] [facility] [address] [place] [phone] Phone Care Team Providers Care Automotive Electrical Fitter Name Role Phone Benji Salcedo MD Primary Care Provider [phone] Encounter Details Date Type Department Care Team (Late st Contact Info) Description 12/08/2024 Procedure Pass [facility] [address] [place] [address] Social History Tobacco Use Types Packs/Day Years [...] on filedocumented in this encounter Care Teams Automotive Electrical Fitter Relationship Specialty Start Date End Date Benji Salcedo MD [address] [place] [phone] PCP - General Internal Medicine 11/04/24 documented as of this encounter Additional Source Comments The information contained in this document represents components of the legal health record. It is not the complete legal health record.[facility]
== END 2025-03-20 14:58 | disposition home or self-care (01) ==
LOC: HO.HMGCX 14:57
PROVIDERS: PCP Internal Medicine; Visit Provider Student in an Organized Health Care Education/Training Program
DX: L03.116 Cellulitis of left lower limb (principal); M79.671 Pain in right foot
CPT/HCPCS: 73630

== ENCOUNTER → 2025-03-20 15:03 | Outpatient (BNV) | payer BC, SELFPAY | PROVIDERS: PCP Internal Medicine; Visit Provider Radiology Diagnostic Radiology | DX: L03.116 Cellulitis of left lower limb (principal); M77.32 Calcaneal spur, left foot | CPT/HCPCS: 73630 ==

== ENCOUNTER 2025-03-24 13:17 | Outpatient (AMB) | payer BC, SELFPAY ==
--- OUTSIDE RECORDS SUMMARY | 2024-11-12 05:00 | XMS_ITS ---
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 Date: 0 11/12/2024 Generated for Aleks crawley/Nahid/Esha on: 1 05/25/2024 06:04 PM EST
--- NOTE | 2025-03-24 13:21 | A.OFFVIS_ITS ---
Vital Signs 03/24/25 13:22 Height 5 ft 4 in Weight 185 lb BMI 31.8 Intake Visit Reasons: big toe nail fungus red/painful Intake Note: ld is a 69 year old female who presents today for a follow up of her big toe nail fungus. Patient reports she is doing well, however she complaints of foot pain on her right foot and possible bone spur in her right foot. She also reports of on and off pain, with no further concerns. Allergies Iodinated Contrast Media (IV CONTRAST) Allergy (Severe, Verified 03/24/25 13:32) SEIZURE vancomycin (VANCOMYCIN) Allergy (Severe, Verified 03/24/25 13:32) ITCHING, SOB doxycycline (DOXYCYCLINE) Allergy (Intermediate, Verified 03/24/25 13:32) DIFFICULTY SWALLOWING Penicillins (PENICILLINS) Allergy (Intermediate, Verified 03/24/25 13:32) RASH cephalexin (From KEFLEX) Allergy (Unknown, Verified 03/24/25 13:32) RASH Sulfa (Sulfonamide Antibiotics) (SULFA (SULFONAMIDE ANTIBIOTICS)) Allergy (Un known, Verified 03/24/25 13:32) UNKNOWN HPI HPI big toe nail fungus red/painful: Details: 69-year-old female with past medical history diabetes mellitus type 2, CKD stage 3, PVD, right knee osteoarthritis, returns for left big toe pain, bilateral ankle pain, and left foot fungal infection. She notes her pain has not improved her left big toe however it is still present. No longer taking any antibiotics. She is planned for a repeat right knee injection soon. History: She notes a long history of right foot pain starting since July of 2024. She had multiple x-rays MRIs and a bone scan and eventually had an injection to the top of her right foot, which helped to relieve her pain. [facility] Medical History GINA (obstructive sleep apnea) Gout On beta kamar at home Chronic headaches Splenic artery aneurysm Meningioma HTN (hypertension) Surgical History Hx laparoscopic cholecystectomy (~2013) History of hysterectomy History of History of colonoscopy (~08/2018) Family History Father Family hx of colon cancer Mother Hx of breast cancer Paternal Grandmother Colon cancer Social History Household Members: None Housing: House Alcohol intake: never Patient Tobacco Use Status: Never used Tobacco e-Cigarette/Vaping Use: Never Used service: No Cognitive needs: No Hearing needs: No Vision needs: No Review of Systems Const All systems reviewed & are unremarkable except as noted in HPI and below Physical Exam Vital Signs: BMI result Body Mass Index 31.8 Extrem Other: *Bilateral Lower Extremity Focused Diabetic Foot Exam Vascular: DP/PT 2/4, CFT<3s to digits, TG warm to cool, no pedal edema, pedal hair present Derm: Skin: No erythema to the hallux. No drainage or increased warmth or other clinical signs of infection. No drainage on attempted expression. Interdigital spaces: Left 4th interspace maceration significantly improved Nails: Left hallux nail dystrophic thickened discolored and brittle. Neuro: [place]-joana monofilament (10g) test 10/10 intact to right foot, 10/10 intact to left foot. Msk: Mild tenderness on palpation of the medial aspect of the distal phalanx of the right hallux. Deformities: No evidence of hammertoes, bunions, Charcot changes, or other structural abnormalities. Muscle strength: 5/5 in all muscle groups. Gait: Normal, no antalgic or steppage gait observed. Footwear Assessment: Shoes inspected; appropriate fit, no excessive wear, or foreign objects noted. Results Reviewed Results Reviewed: X-ray Read: 03/20/2025 X-ray left foot 3 views (AP, MO, Lateral) reviewed which shows cortical break on the lateral view of the dorsal aspect of the base of the 1st distal phalanx with callus formation versus exostosis on the AP view. I personally reviewed the imaging and my findings are listed above. 02/10/2025 Fungus Cult Hair/Skin/Nail Final 03/14/25-1135 Trichophyton species Tiff famata (formerly Torulopsis tiff) Fungus present on culture. Does not resemble a dermatophyte. Laboratory Tests 03/19/25 14:40 Uric Acid 4.2 Laboratory Tests 03/19/25 14:40 WBC 10.6 ESR 2 C-Reactive Protein 0.31 Assessment & Plan Assessment & Plan (1) Bone spur of toe of left foot: Code(s): M77.52 - Other enthesopathy of left foot and ankle Category: Medical Plan: * Reviewed left foot x-ray. Differential diagnosis, hairline fracture versus bone spur * Labs reviewed. No elevated ESR, CRP, or WBC. Symptoms are most likely not from an infection. Discontinue antibiotics. * Recommend repeat x-ray in 4 weeks. Possible cortisone injection if it is inflammation due to a bone spur * Discussed treatment options in the future including surgical excision (2) Gout, arthritis: Code(s): M10.9 - Gout, unspecified Category: Medical Plan: * Reviewed uric acid test which is within normal limits (3) Posterior tibial tendinitis, right leg: Code(s): M76.821 - Posterior tibial tendinitis, right leg Category: Medical Plan: * Continue range of motion and stretching for her bilateral ankle tendonitis. * Recommended ankle compression sleeve when she is walking for extended periods of time. * Continue power step high arch orthotics. May require custom orthotics (4) Peroneal tendinitis, left leg: Code(s): M76.72 - Peroneal tendinitis, left leg Category: Medical Plan: * Offered cortisone injection, which may be performed at the next visit pending her treatment plan for her right knee. (5) Tinea unguium: Code(s): B35.1 - Tinea unguium Category: Medical Plan: * Nail biopsy left hallux: Trichophyton & Tiff * May require total nail avulsion if there is a fungal component to her hallux infection. At this point there is no signs of abscess or drainage from the nail. * Patient not amenable to avulsion at this time Orders: Orders XR toe LT min 2V 2 Weeks M77.52 - Other enthesopathy of left foot and ankle Coding Level of Care Code Est Pt Level 4 (79593) Diagnoses Bone spur of toe of left foot M77.52 Gout, arthritis M10.9 Posterior tibial tendinitis, right leg M76.821 Peroneal tendinitis, left leg M76.72 Tinea unguium B35.1
[2025-03-24 13:22] VITALS: BMI 31.8
--- OUTSIDE RECORDS SUMMARY | 2025-03-24 18:03 | XMS_ITS | Patient Health Record ---
Author Organization [facility] Address [address] [place] [address] Care Team Providers Care Gardening Instructor Name Role Phone HELENE QUEZADA Primary Care Provider Allergies Allergen (clinical drug ingredient) Drug/Non Drug Allergy documented on EMR Reaction Allergy Type Onset Date Status KEFLEX (uncoded) Unknown Allergy Act maddy tramadol traMADol HCl nightmares Drug Allergy Act maddy doxycycline Doxycycline oral rash Drug Allergy Act maddy Iodinated contrast media (substance) Iodinated Diagnostic Agents Unknown Drug Allergy Active Penicillin Unknown Drug Allergy Active vancomycin Vancomycin Unknown Drug Allergy Activ e Reason For Referral Reason (2)New patient Appt [facility] Orthopedics Diagnosis 1 Primary osteoarthrit is of right knee (M17.11) Referral Organization [facility] mosher Referring Provider First [...] Foot pain, left (M79 .672) Referral Organization [facility] Referring Provider First Name HELENE Referring Provider Last Name PILAR Referring Provider Speciality Internal edicine Referred Provider Specialty Physical The rapy Referral Priority Routine Reason (faed thru EMR 5) New patient appt [facility], [address] [place] [address] fax: [phone]. please send MRI Diagnosis 1 Tendinitis of right foot (M77.51) Referral Organization [facility] Referring Provider First Name HELENE Referring Provider Last Name PILAR Referring Provider Speciality Internal M edicine Referred Provider Specialty Orthopedic S urgery General Notes Radha RAMIREZ CMA 04/2024 02:28:47 PM >Per patient [place] has appointment with your physician 10/20/24. Will send MRI result/report to you separately., Mary Ellen RAMIREZ Admin 11/10/2024 08:52:16 AM > no referral requierd with ppo plan, Mary Ellen RAMIREZ Admin 02/19/2025 09:21:49 AM > nrr>encounter closed Referral Priority Urgent Referral Appointment Date 10/20/2024 Medications Medication SIG (Take, Route, Frequency, Duration) Notes Start Date End Date Status Bactrim 400-80 MG Tablet 1 tablet Orally Once a day; Duration: 14 day(s) 02/23/2025 Active amLODIPine-Olmesartan 10-20 MG Tablet 1 tablet Orally Once a day Active Nystatin 091149 UNIT/GM Powder 1 application Externally Twice a day; Duration: 30 day(s) 06/13/2023 Active Ozempic (2 MG/DOSE) 8 MG/3ML Solution Pen-injector as directed Subcutaneous every 7 days 10/01/2024 Active Allopurinol 100 MG Tablet 2 tablets Oral ly Once a day Active FreeStyle Ladonna 3 Plus Sensor - Miscellaneous as directed applied to skin every 15 days; Duration: 30 day(s) 03/05/2025 Active Furosemide 20 MG Tablet 1 tablet Orally Once a day; Duration: 30 days Active Metoprolol Tartrate 50 MG Tablet 1 tablet with food Orally Twice a day Active Immunizations Vaccine Route Administration Date Status Comme nts Zoster recombinant Unknown 02/05/2013 Administered Tetanus toxoid IM Intramuscular 01/28/2015 Administered Td (Tetanus Diphtheria) IM Intramuscular 11/14/2005 Admini stered Td (Tetanus Diphtheria) Unknown 07/05/2021 Administered Pneumococcal (PPV23, adult) IM Intramuscular 01/20/2015 Administered Influenza, Fluarix Quad Unknown 02/05/2013 Administered Covid Unknown 08/02/2020 Administered Covid Unknown 08/23/2020 Administered Social History Tobacco Use: Social History Observation Description Date Details (start date - stop date) Never Smoker NA - NA Social History Tobacco Use: Social Info Question Answer Notes Smoking Are you a: never smoker Additional Details Category Social Info Options Details General 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: no alcohol use: no drug use: no Coffee/Tea/Soda: no green tea Marital Status experience no Living with alone Pets 2 dogs ,3 cats smokers in household no Section Notes: pt never smoke pt never smoke pt never smoke pt never smoke pt never smoke pt never smoke pt never smoke pt never smoke pt never smoke pt never smoke pt never smoke pt never smoke pt never smoke pt never smoke pt never smoke pt never smoke pt never smoke pt never smoke Problems Problem Type SNOMED Code ICD Code Onset Dates Problem Status W/U Status Risk Notes Problem Cough (19143085) Cough (R05) Active confirmed Problem Obstructive sleep apnea (00265770) Obstructive sleep apnea (G47.33) Active confirmed Problem Gastroesophageal reflux disease (048246717) GERD without esophagitis (K21.9) Active confirmed Problem Mixed hyperlipidemia (398622012) Mixed hyperlipidemia (E78.2) Active confirmed Problem Anxiety (05374063) Anxiety (F41.9) Active confi rmed Problem Osteoarthritis of knee (204436823) Primary osteoarthritis of both knees (M17.0) Active confirmed Problem Osteoarthritis of knee (159078873) Primary osteoarthritis of right knee (M17.11) Active confirmed Problem Constipation (84637735) Constipation, unspecified constipation type (K59.00) Active confirmed Problem Gouty arthritis (61364708) Gouty arthritis (M10.9) Active confirmed Problem Idiopathic gout (42653399) Acute idiopathic gout of right foot (M10.071) Active confirmed Problem Acute bronchitis (97055855) Bronchitis with bronchospasm (J20.9) Active confirmed Problem Benign neoplasm of cerebral meninges (61350529) Meningioma (D32.9) Active confirmed Problem Leukocytosis (319393116) Leukocytosis, unspecified type (D72.829) Active confirmed Problem Hyperglycemia due to type 2 diabetes mellitus (249823592191277) Type 2 diabetes mellitus with hyperglycemia, without long-term current use of insulin (E11.65) Active confirmed Problem Type II diabetes mellitus without complication (499523753) Type 2 diabetes mellitus without complication, without long-term current use of insulin (E11.9) Active confirmed Problem Chronic kidney disease stage 3A (disorder) (640521752) Stage 3a chronic kidney disease (CKD) (N18.31) Active confirmed Problem Persistent depressive disorder (8984600206) Persistent depressive disorder (F34.1) Active confirmed Problem Stasis dermatitis (16698072) Stasis dermatitis (I87.2) Active confirmed Problem Fatigue (01193481) Other fatigue (R53.83) 04/12/20 Active confirmed Problem Essential hypertension (98664940) Essential (primary) hypertension (I10) 04/12/20 Active confirmed Problem Backache (330247531) Dorsalgia, unspecified (M54.9) 04/12/20 Active confirmed Vital Signs Blood pressure diastolic 68 mm Hg 02/23/2025 Height 62.5 in 02/23/2025 Blood pressure systolic 118 mm Hg 02/23/2025 Weight 184.8 lbs 02/23/2025 BMI 33.26 kg/m2 02/23/2025 Encounters Encounter Location Date Provider Diagnosis [place] [id number] 03/25/2024 [facility] Essential (primary) hypertension I10 ; Type 2 diabetes mellitus with hyperglycemia, without long-term current use of insulin E11.65 ; Mixed hyperlipidemia E78.2 ; Persistent depressive disorder F34.1 ; Meningioma D32.9 ; Primary osteoarthritis of right knee M17.11 and Encounter for general adult medical examination without abnormal findings Z00.[address] [address] 02/23/2025 [facility] Paronychia of toe of left foot L03.032 ; Essential (primary) hypertension I10 and Type 2 diabetes mellitus without complication, without long-term current use of insulin E11.[address] [address] 01/20/2025 [facility] Right flank pain R10 .A1 ; Acute UTI (urinary tract infection) N39.0 ; Gross hematuria R31.0 ; Essential (primary) hypertension I10 ; Right foot pain M79.671 ; Stage 3a chronic kidney disease (CKD) N18.31 and Type 2 diabetes mellitus without complication, without long-term current use of insulin E11.9 [place] [id number] 11/18/2024 [facility] Right foot pain M79. 671 ; Essential (primary) hypertension I10 and Type 2 diabetes mellitus without complication, without long-term current use of insulin E11.[address] [address] 10/01/2024 [facility] Type 2 diabetes mellitus with hyperglycemia, without long-term current use of insulin E11.65 ; Right foot pain M79.671 ; Essential (primary) hypertension I10 and Traumatic injury of head, initial encounter S09.90XA [address] [address] 09/15/2024 [facility] Right foot pain M79. 671 ; Essential (primary) hypertension I10 and Gouty arthritis M10.9 [place] [id number] 08/21/2024 [facility] Acute idiopathic gou t of right foot M10.071 [place] [id number] 08/07/2024 [facility] Essential (primary) hypertension I10 ; Abdominal cramping R10.9 and Foot pain, left M79.[address] [address] 07/14/2024 [facility] Essential (primary) hypertension I10 ; Primary osteoarthritis of right knee M17.11 ; Type 2 diabetes mellitus without complication, without long-term current use of insulin E11.9 and Right foot pain M79.671 [facility] [address] [address] 09/17/2024 [facility] Cellulitis of hand L03.[address] [address] 04/30/2024 [facility] Primary osteoarthrit is of right knee M17.11 [facility] [place] [phone] 05/09/2024 [facility] Acute diarrhea R19.7 [facility] [address] [address] 01/26/2025 HELENE [facility] [address] [place], [place] [phone] 01/19/2025 [facility] [address] [place] [address] 07/07/2024 [facility] [address] [place] [address] 12/16/2024 [facility] [address] [place] [address] 11/19/2024 [facility] [address] [place] [address] 11/18/2024 [facility] Right foot pain M79. 671 [facility] [address] [place] [address] 11/13/2024 [facility] [address] [place] [address] 11/03/2024 [facility] [address] [place] [address] 10/23/2024 [facility] Type 2 diabetes mellitus without complication, without long-term current use of insulin E11.9 and Gouty arthritis M10.9 [facility] [address] [place] [address] 10/15/2024 [facility] [address] [place] [address] 10/10/2024 [facility] Tendinitis of right foot M77.51 [facility] [address] [place] [address] 10/07/2024 [facility] [address] [place] [address] 10/03/2024 [facility] [address] [place] [address] 10/03/2024 [facility] [address] [place] [address] 10/03/2024 [facility] [address] [place] [address] 10/02/2024 [facility] Right foot pain M79. 671 [facility] [address] [place] [address] 10/01/2024 [facility] [address] [place] [address] 09/23/2024 [facility] [address] [place] [address] 09/17/2024 [facility] [address] [place] [address] 09/17/2024 [facility] [address] [place] [address] 09/11/2024 [facility] [address] [place] [address] 09/09/2024 [facility] [address] [place] [address] 09/03/2024 [facility] [address] [place] [address] 08/25/2024 [facility] [address] [place] [address] 08/20/2024 [facility] [address] [place] [address] 08/14/2024 [facility] [address] [place] [address] 08/11/2024 [facility] [address] [place] [address] 08/04/2024 [facility] [address] [place] [address] 08/04/2024 [facility] [address] [place] [address] 07/25/2024 [facility] Right foot pain M79. 671 [facility] [address] [place] [address] 07/18/2024 [facility] Right foot pain M79. 671 [facility] [address] [place] [address] 07/15/2024 [facility] [address] [place] [address] 07/11/2024 [facility] [address] [place] [address] 07/11/2024 [facility] [address] [place] [address] 06/16/2024 [facility] [address] [place] [address] 06/03/2024 [facility] [address] [place] [address] 06/03/2024 HELENE PILAR Acute diarrhea R19.7 [facility] [address] [place] [address] 05/29/2024 [facility] [address] [place] [address] 2024 [facility] [address] [place] [address] 05/22/2024 [facility] [address] [place] [address] 05/16/2024 [facility] [address] [place] [address] 05/14/2024 [facility] [address] [place] [address] 05/14/2024 [facility] [address] [place] [address] 05/12/2024 [facility] [address] [place] [address] 05/09/2024 [facility] [address] [place] [address] 05/07/2024 [facility] [address] [place] [address] 05/02/2024 [facility] [address] [place] [address] 04/30/2024 [facility] [address] [place] [address] 04/15/2024 HELENE PILAR Acute diarrhea R19.7 [facility] [address] [place] [address] 04/03/2024 [facility] [address] [place] [address] 04/03/2024 [facility] [address] [place] [address] 03/28/2024 HELENE PILAR Acute diarrhea R19.7 [facility] [address] [place] [address], [place] [address] 03/09/2025 [facility] [address] [place] [address], [place] [address] 03/05/2025 [facility] Type 2 diabetes mellitus without complication, without long-term current use of insulin E11.9 [facility] [address] [place] [address], [place] [address] 03/05/2025 [facility] [address] [place] [address], [place] [address] 03/05/2025 [facility] [address] [place] [address], [place] [address] 03/02/[address] [place] [address] 03/02/2025 [facility] Acute diarrhea R19.[address] [place] [address] 02/20/2025 [facility] Assessments Encounter Date Diagnosis (ICD Code) Assessment Notes Treatment Notes Treatment Clinical Notes [...] maintenance: She will book her mammogram at [facility]. Colonoscopy was done in 2021 and is next due in 2026. Fasting labs are up-to-date. She has had her vaccinations 03/28/2024 Acute diarrhea (ICD-10 - R19.7) 04/15/2024 Acute diarrhea (ICD-10 - R19.7) 04/30/2024 Primary osteoarthritis of right knee (ICD-10 - M17.11) 1. Right knee osteoarthritis: Reportedly [id number] and end-stage. Current orthopedic appointment in [place] is not until August and patient does not wish to wait this long. She requests referral to [facility]. We will trial cautious Tylenol with codeine [...] knee: Has a second opinion with the [place] doctor who does the procedure robotically. She [...] will cover with a Medrol Dosepak. 03/25/2024 Type 2 diabetes mellitus with hyperglycemia, [...] maintenance: She will book her mammogram at [facility]. Colonoscopy was done in 2021 and is next due in 2026. Fasting labs are up-to-date. She has had her vaccinations 07/14/2024 Primary osteoarthritis of right knee (ICD-10 - M17.11) 1. Hypertension: Well-controlled on present therapy. No changes made today 2. Osteoarthritis right knee: Has a second opinion with the [place] doctor who does the procedure robotically. She [...] she is not improving with this treatment 10/02/2024 Right foot pain (ICD-10 - M79.671) 10/10/2024 Tendinitis of right foot (ICD-10 - M77.51) 10/23/2024 Gouty arthritis (ICD-10 - M10.9) 10/23/2024 Type 2 diabetes mellitus without complication, without long-term current use of insulin (ICD-10 - E11.9) 11/18/2024 Right foot pain (ICD-10 - M79.671) 02/23/2025 Essential (primary) hypertension (ICD-10 - I10) [...] on current regimen of nutritional control 10/01/2024 Right foot pain (ICD-10 - M79.671) [...] set up the urgent CT scan 01/20/2025 Acute UTI (urinary tract infection) (ICD-10 - N39.0) 1. UTI: Review of culture from [facility] shows Klebsiella which is sensitive to her current Macrodantin. Will continue same 2. Right flank pain with gross hematuria: Question underlying stone as a source of infection. Will check a CT with renal stone protocol. Further recommendations pending results 3. Hypertension: Stable on current amlodipine/olmesar wood and metoprolol. Will continue same 4. Right foot pain: Finally improved after cortisone injection with podiatry in [place]. Underlying degenerative arthritis appears to have been the source of her symptoms. Will follow 5. Stage IIIa chronic kidney disease: Stable on current medical therapy. Knows to avoid NSAIDs. She has upcoming follow-up with Dr. Patton from nephrology 6. Type 2 diabetes mellitus: Improved on Ozempic. Will continue present dosing 01/20/2025 Right flank pain (ICD-10 - R10.A1) 1. UTI: Review of culture from [facility] shows Klebsiella which is sensitive to her current Macrodantin. Will continue same 2. Right flank pain with gross hematuria: Question underlying stone as a source of infection. Will check a CT with renal stone protocol. Further recommendations pending results 3. Hypertension: Stable on current amlodipine/olmesar wood and metoprolol. Will continue same 4. Right foot pain: Finally improved after cortisone injection with podiatry in [place]. Underlying degenerative arthritis appears to have been the source of her symptoms. Will follow 5. Stage IIIa chronic kidney disease: Stable on current medical therapy. Knows to avoid NSAIDs. She has upcoming follow-up with Dr. Patton from nephrology 6. Type 2 diabetes mellitus: Improved on Ozempic. Will continue present dosing 01/20/2025 Gross hematuria (ICD-10 - R31.0) 1. UTI: Review of culture from [facility] shows Klebsiella which is sensitive to her current Macrodantin. Will continue same 2. Right flank pain with gross hematuria: Question underlying stone as a source of infection. Will check a CT with renal stone protocol. Further recommendations pending results 3. Hypertension: Stable on current amlodipine/olmesar wood and metoprolol. Will continue same 4. Right foot pain: Finally improved after cortisone injection with podiatry in [place]. Underlying degenerative arthritis appears to have been [...] will set up the urgent CT scan 02/23/2025 Type 2 diabetes mellitus without complication, [...] mellitus: Well-controlled on current Ozempic. Will follow 09/15/2024 Gouty arthritis (ICD-10 - M10.9) 1. [...] knee: Has a second opinion with the [place] doctor who does the procedure robotically. She [...] will cover with a Medrol Dosepak. 03/25/2024 Mixed hyperlipidemia (ICD-10 - E78.2) 1. [...] maintenance: She will book her mammogram at [facility]. Colonoscopy was done in 2021 and is next due in 2026. Fasting labs are up-to-date. She has had her vaccinations 03/25/2024 Persistent depressive disorder (ICD-10 - F34.1) [...] maintenance: She will book her mammogram at [facility]. Colonoscopy was done in 2021 and is next due in 2026. Fasting labs are up-to-date. She has had her vaccinations 07/14/2024 Right foot pain (ICD-10 - M79.671) 1. Hypertension: Well-controlled on present therapy. No changes made today 2. Osteoarthritis right knee: Has a second opinion with the [place] doctor who does the procedure robotically. She [...] 1. UTI: Review of culture from [facility] shows Klebsiella which is sensitive to her current Macrodantin. Will continue same 2. Right flank pain with gross hematuria: Question underlying stone as a source of infection. Will check a CT with renal stone protocol. Further recommendations pending results 3. Hypertension: Stable on current amlodipine/olmesar wood and metoprolol. Will continue same 4. Right foot pain: Finally improved after cortisone injection with podiatry in [place]. Underlying degenerative arthritis appears to have been [...] improved after cortisone injection with podiatry in [place]. Underlying degenerative arthritis appears to have been [...] maintenance: She will book her mammogram at [facility]. Colonoscopy was done in 2021 and is [...] maintenance: She will book her mammogram at [facility]. Colonoscopy was done in 2021 and is next due in 2026. Fasting labs are up-to-date. She has had her vaccinations 01/20/2025 Stage 3a chronic kidney disease (CKD) (ICD-10 - N18.31) 1. UTI: Review of culture from [facility] shows Klebsiella which is sensitive to her current Macrodantin. Will continue same 2. Right flank pain with gross hematuria: Question underlying stone as a source of infection. Will check a CT with renal stone protocol. Further recommendations pending results 3. Hypertension: Stable on current amlodipine/olmesar wood and metoprolol. Will continue same 4. Right foot pain: Finally improved after cortisone injection with podiatry in [place]. Underlying degenerative arthritis appears to have been [...] E11.9) 1. UTI: Review of culture from [facility] shows Klebsiella which is sensitive to her current Macrodantin. Will continue same 2. Right flank pain with gross hematuria: Question underlying stone as a source of infection. Will check a CT with renal stone protocol. Further recommendations pending results 3. Hypertension: Stable on current amlodipine/olmesar wood and metoprolol. Will continue same 4. Right foot pain: Finally improved after cortisone injection with podiatry in [place]. Underlying degenerative arthritis appears to have been [...] maintenance: She will book her mammogram at [facility]. Colonoscopy was done in 2021 and is next due in 2026. Fasting labs are up-to-date. She has had her vaccinations Plan Of Treatment Pending Test Test Name Order Date XR Chest 2 views 01/21/2024 regadenoson mibi 11/09/2023 Future Test Test Name Order Date FLUID DIFFERENTIAL 06/22/2014 GI Profile, Stool, [id number] 02/27/2024 GI Profile, Stool, [id number] 06/03/2024 GI Profile, Stool, [id number] 08/07/2024 GI Profile, Stool, [id number] 03/02/2025 Next Appt Details Provider Name:HELENE QUEZADA , 04/17/2025 03:15:00 PM, [address], [place], [id number], Insurance Providers Payer Name Payer Address Payer Phone Subscriber Number Group Number Insured Name Patient Relationship to Insured Coverage Start Date Coverage End Date [employer] [address] [place] [phone] [id number] BELGICA CONWAY Self - patient is the insured 2005 Medical (General) History Medical History History ICD Code tubular adenoma 02/19 family h/o colon polyps allergies mammagram=calcifications per pt diabetes diet controlled no meds family hx colon cancer PGM, father sleep apnea tubular adenoma 03/29/2011 (and hyperpla stic polyp) due 2016 cholecystectomy obesity CDiff Surgical History Surgery Date(Month/Year) cholecystectomy, laparoscopic 11/05/13 partial hysterectomy 1991 Hospitalization History Reason Date(Month/Year) as above Farzad MULLEN Novi- Abdominal pain, b lood in urine 01/18/25 [facility] Positive for COVID 12/16
--- OUTSIDE RECORDS SUMMARY | 2025-03-24 18:03 | XMS_ITS | Encounter Summary ---
Author Organization [facility] Address [address] [facility] [address] [place] [address] Phone Care Team Providers Care Assessment Expert Name Role Phone Benji Salcedo MD Primary Care Provider [phone] Benji Salcedo MD Primary Care Provider [phone] Encounter Details Date Type Department Care Team (Late st Contact Info) Description 04/28/2024 Ancillary Orders [facility] Orthopedics at [place] [address] [facility] [address] [place] [address] Lam Grimes MD [address] [place] [address], [address] [place] [address] [email or web address] Pain (Primary Dx) Social History Tobacco Use [...] pain documented in this encounter Care Teams Assessment Expert Relationship Specialty Start Date End Date Benji Salcedo MD [address] [place] [address] PCP - General Internal Medicine 12/29/21 11/03/24 Benji Salcedo MD [address] [place] [address] PCP - General Internal Medicine 11/04/24 documented as of this encounter Additional Source Comments The information contained in this document represents components of the legal health record. It is not the complete legal health record.[facility]
--- OUTSIDE RECORDS SUMMARY | 2025-03-24 18:04 | XMS_ITS | Clinical Summary ---
Author Organization [facility] Address [address] [place] [address] Phone Care Team Providers Care Structural Steel Erector Name Role Phone Benji Salcedo MD Primary Care Provider [phone] Surgical History Surgery Date Site/Laterality Comments SECTION [...] on file Sexual Orientation Not on file Plan of Treatment Health Maintenance Due Date [...] 2024 , 01/16/2023, 01/10/2022, Additional history exists Diabetes: Annual [...] complete this topic Insurance MEDICARE Care Teams Structural Steel Erector Relationship Specialty Start Date End Date Benji Salcedo MD PCP - General Internal Medicine 04/02/08
--- OUTSIDE RECORDS SUMMARY | 2025-03-24 18:04 | XMS_ITS | Clinical Summary ---
Author Organization [facility] Address [address] [address] Phone Care Team Providers Care Planogrammer Name Role Phone Benji Salcedo MD Primary Care Provider [phone] Allergies Active Allergy Reactions Criticality Noted Date [...] Description 02/18/2025 3:00 PM EST Office Visit [facility] Orthopedics & Sports Medicine [address] [place] [address] Demetrio Hunt MD Primary osteoarthritis of right knee (Primary Dx) 02/03/2025 Orders Only [facility] Orthopedics & Sports Medicine [address] [place] [address] Shalom Yusuf MA Right foot pain (Primary Dx) 01/18/2025 5:11 PM EDT - 01/18/2025 8:40 PM EDT Emergency [facility] [address] [place] [address] Hiral Wilcox MD Discharge Disposition: Home or Self Care 01/15/2025 Telephone [facility] Orthopedics & Sports Medicine [address] [place] [address] Thais Sesay RN GELSYNEdvin - - Gilbert [...] (01/18/2025 6:25 PM EDT) COLOR BRITTANY(A) Yellow [facility] CLARITY CLOUDY [facility] GLUCOSE Negative Negative [facility] BILI 1+(A) Negative [facility] KETONES Negative Negative [facility] SPECIFIC GRAVITY >1.030 1.005 - 1.030 [facility] BLOOD 3+(A) Negative [facility] PH 5.5 5.0 - 8.0 [facility] [facility] Protein-UA 2+(A) Negative [facility] NITRITE Negative Negative [facility] Leukocyte esterase, ur 2+(A) Negative [facility] Urine (Urine) 01/18/2025 6:2 5 PM EDT 01/18/2025 6:43 PM EDT Angelito Mcrae MD LAB URINE ORDERABLES Final Resu lt Performing Organization Address City/[facility]/ZIP Co de Phone Number [address] [address] * (ABNORMAL) Urine Culture (01/18/2025 6:25 PM EDT) Special Requests None Reflexed from [id number] 01/18/2025 7:33 PM EDT [facility] Urine Culture >100,000 colony forming units per mL KLEBSIELLA OXYTOCA(A) 01/20/2025 10:29 AM EDT [facility] Urine Culture >100,000 colony forming units per mL BETA HEMOLYTIC STREPTOCOCCUS GROUP B(A) 01/20/2025 10:29 AM EDT [facility] Urine 01/18/2025 6:25 PM EDT 01/18/2025 6:43 [...] ORDERA BLES Final Result Performing Organization Address [facility]/ZIP Co de Phone Number [address] [address] * (ABNORMAL) Urine sediment (01/18/2025 6:25 PM EDT) WBC TOO NUMEROUS TO COUNT(A) NONE SEEN /hpf [facility] RBC 50-100(A) NONE SEEN /hpf [facility] URINE EPITHELIAL 5-10(A) NONE SEEN [facility] MUCUS NONE SEEN NONE SEEN /hpf [facility] BACTERIA 2+(A) NONE SEEN /hpf [facility] 01/18/2025 6:25 PM EDT 01/18/2025 6:43 PM EDT Angelito Mcrae MD LAB URINE ORDERABLES Final Resu lt Performing Organization Address City/[facility]/ZIP Co de Phone Number [address] [address] * LFTs (hepatic panel) (01/18/2025 5:19 PM EDT) ALKALINE PHOSPHATASE 92 39 - 117 U/L [facility] TOTAL BILIRUBIN 0.6 0.0 - 1.2 mg/dL [facility] DIRECT BILIRUBIN 0.2 0.0 - 0.2 mg/dL [facility] Bilirubin (Indirect) 0.4 0 - 1.5 mg/dL [facility] AST 18 0 - 37 U/L [facility] ALT 17 0 - 40 U/L [facility] TOTAL PROTEIN 6.6 6.5 - 8.0 g/dL [facility] ALBUMIN 4.2 3.9 - 4.8 g/dL [facility] GLOBULIN 2.4 1 - 4.8 g/dL [facility] A/G Ratio 1.75 1.00 - 4.80 RATIO [facility] Blood 01/18/2025 5:19 PM EDT 01/18/2025 5:23 PM EDT Angelito Mcrae MD LAB BLOOD BKR ORDERABLES Final Result Performing Organization Address City/[facility]/ZIP Co de Phone Number [address] [address] * (ABNORMAL) CBC and differential (01/18/2025 5:19 PM EDT) WBC 13.57(H) 4.00 - 11.00 K/uL [facility] RBC 5.55(H) 4.00 - 5.20 M/uL [facility] HGB 15.2 12.0 - 16.0 g/dL [facility] HCT 47.4(H) 36.0 - 46.0 % [facility] PLT 235 150 - 450 K/uL [facility] MCV 85.4 80.0 - 100.0 fL [facility] MCH 27.4 27.0 - 31.0 pg [facility] MCHC 32.1 32.0 - 36.0 g/dL [facility] RDW 13.1 11.5 - 14.5 % [facility] MPV 8.7 8.4 - 12.0 fL [facility] NRBC 0.00 0.00 /100 WBCs [facility] ABSOLUTE NRBC 0.00 0.00 K/uL [facility] DIFF METHOD Auto [facility] NEUTS 77.8(H) 48.0 - 76.0 % [facility] LYMPHS 13.9(L) 18.0 - 41.0 % [facility] MONOS 5.5 4.0 - 11.0 % [facility] EOS 1.8 0.0 - 5.0 % [facility] BASOS 0.7 0.0 - 1.5 % [facility] Granulocytes, immature (%) 0.3 0.0 - 0.9 % [facility] ABSOLUTE NEUTS 10.58(H) 1.92 - 7.60 K/uL [facility] ABSOLUTE LYMPHS 1.88 0.72 - 4.10 K/uL [facility] ABSOLUTE MONOS 0.74 0.16 - 1.10 K/uL [facility] [employer] [facility] ABSOLUTE EOS 0.24 0.00 - 0.50 K/uL [facility] ABSOLUTE BASOS 0.09 0.00 - 0.15 K/uL [facility] Granulocytes, immature 0.04 0.00 - 0.09 K/uL [facility] Blood 01/18/2025 5:19 PM EDT 01/18/2025 5:23 PM EDT us Angelito Mcrae MD LAB BLOOD BKR ORDERABLES Final Result [address] [address] * (ABNORMAL) Lipase (01/18/2025 5:19 PM EDT) LIPASE 10(L) 16 - 63 U/L [facility] Blood 01/18/2025 5:19 PM EDT 01/18/2025 5:23 PM EDT Angelito Mcrae MD LAB BLOOD BKR ORDERABLES Final Result Performing Organization Address [facility] Co de Phone Number [address] [address] * (ABNORMAL) Basic metabolic panel (01/18/2025 5:19 PM EDT) SODIUM 143 133 - 146 mmol/L [facility] CHLORIDE 108 96 - 108 mmol/L [facility] POTASSIUM 4.4 3.3 - 5.1 mmol/L [facility] CO2 23 21 - 35 mmol/L [facility] BUN 36(H) 6 - 19 mg/dL [facility] CREATININE 1.40 0.5 - 1.5 mg/dL [facility] GLUCOSE 124(H) 70 - 99 mg/dL [facility] CALCIUM 10.0 8.4 - 10.3 mg/dL [facility] EGFR 40(L) >59 mL/min/1.7 3m2 [facility] Comment:Estimated glomerular filtration rate calculated using the CKD-EPI refit equation. ANION GAP 16 10 - 20 mmol/L [facility] Blood 01/18/2025 5:19 PM EDT 01/18/2025 5:23 PM EDT us Angelito Mcrae MD LAB BLOOD BKR ORDERABLES Final Result Performing Organization Address City/[facility]/ZIP Co de Phone Number [address] [address] from Last 3 Months Insurance [facility] MEDICARE A [facility] MEDICARE A [place]IC[place] [address] [address] MEDICARE A MEDICARE A MEDICARE A MEDICARE A MEDIC[place] [address] MEDICARE A Care Teams Planogrammer Relationship Specialty Start Date End Date Benji Salcedo MD [address] [place] [address] PCP - General Internal Medicine 11/04/24 Additional Source Comments The information contained in this document represents components of the legal health record. It is not the complete legal health record.[facility]
--- OUTSIDE RECORDS SUMMARY | 2025-03-24 18:04 | XMS_ITS | Encounter Summary ---
Author Organization [facility] Address [address] [facility] [address] [place] [address] Phone Care Team Providers Care Telephoto Installer Name Role Phone Benji Salcedo MD Primary Care Provider [phone] Encounter Details Date Type Department Care Team (Late st Contact Info) Description 12/08/2024 Procedure Pass [facility] Interventional Radiology [address] [place] [address] Social History Tobacco Use Types Packs/Day Years [...] on filedocumented in this encounter Care Teams Telephoto Installer Relationship Specialty Start Date End Date Benji Salcedo MD [address] [place] [address] PCP - General Internal Medicine 11/04/24 documented as of this encounter Additional Source Comments The information contained in this document represents components of the legal health record. It is not the complete legal health record.[facility]
--- OUTSIDE RECORDS SUMMARY | 2025-03-24 18:04 | XMS_ITS | Clinical Summary ---
Author Organization [facility] Prior to 09/13/[address] [place] [address] Care Team Providers Care Spindle Repairer Name Role Phone Benji Salcedo MD Primary [...] age to complete this topic Care Teams Spindle Repairer Relationship Specialty Start Date End Date Benji Salcedo MD PCP - General Internal Medicine 09/10/14
== END 2025-03-24 13:50 | disposition home or self-care (01) ==
LOC: HO.HPODS 13:17
PROVIDERS: PCP Internal Medicine; Visit Provider Student in an Organized Health Care Education/Training Program
DX: M77.52 Other enthesopathy of left foot and ankle (principal); M10.9 Gout, unspecified; M76.821 Posterior tibial tendinitis, right leg; M76.72 Peroneal tendinitis, left leg; B35.1 Tinea unguium
CPT/HCPCS: 99214